=== PATIENT | female | born 1945 | race Caucasian/White ===

== ENCOUNTER 2017-07-24 09:08 | Inpatient (IN) | payer MEDICARE, BC ==
[~2017-07-24] VITALS: Ht 170.2 cm; Wt 110.9 kg
[2017-07-24] VITALS (24 sets, daily range): BP systolic 58–103; BP diastolic 26–63; PULSE 75–96; RESP 11–22; TEMP 98.2
[~2017-07-24 09:08] MED LIST: CIPR500T4 PO; ETOMIDATE 20 MG INJ ONE; LOPE1LIQ33 PO; LORA1TAB PO; METR500T PO; SUCCINYLCHOLINE CHLORIDE 100 MG/5 ML SYG IV ONE
[2017-07-24] MEDS ORDERED: morphine 4 MG/ML VIAL IV STA (09:24)
[2017-07-24] MEDS ORDERED: ONDANSETRON 4 MG INJ IV STA (09:24)
[2017-07-24] MEDS ORDERED: KETOROLAC 30 MG INJ IV STA (09:24)
[2017-07-24] MEDS ORDERED: SOD CHLORIDE 0.9% 1,000 ML IV STA ×3 (09:24→12:25)
[2017-07-24] MEDS ORDERED: FENTAnyl 50 MCG/ML VIAL IV ONE (10:00)
--- NOTE | 2017-07-24 10:02 | ERD ---
ER Documentation Chief Complaint Date/Time DATE: 07/24/17 TIME: 09:58 Chief Complaint CAME IN VIA EMS DUE TO BACK PAIN FOR 4 DAYS HPI This is a 71-year-old male who is brought into the emergency department by EMS complaining of severe worsening back pain over the past 4 days. The patient indicated that the pain initially was intermittent but has now been persistent over the past several hours. She has been unable to get out of bed this morning which is why she phoned 911 to take her to the hospital for further evaluation. She states the pain is more prominent in the left lower back and flank region. It is 10 out of 10 in intensity. The pain does not radiate down the lateral aspect of her left leg and she denies any changes in her bladder or bowel frequency. She has had no fevers or shaking or chills. She has had a decrease in oral intake secondary to pain. She also indicates she has had decreased urinary output with urgency and dysuria. She did take a [place] prior to arrival with no improvement of her symptoms. She does states she has had back pain in the past but never this intensity. The pain is exacerbated with movement. She denies any shortness of breath at rest or exertion. She has no chest pain or pressure that radiates to the neck or back or jaw. She does indicate that she drinks alcohol on a daily basis but denies any hemoptysis hematemesis or melanotic stools. Her primary care physician is Dr. Hawley. ROS All systems reviewed and are negative except as per history of present illness. Medications Home Meds Discontinued Reported Medications Lorazepam* (Lorazepam*) 1 Mg Tablet, 1 MG PO TID Y for ANXIETY, #30 TAB 09/28/16 Discontinued Scripts Ciprofloxacin Hcl* (Ciprofloxacin Hcl*) 500 Mg Tablet, 500 MG PO BID, #14 TAB Prov:EMILY STEPHEN DO 09/28/16 Loperamide Hcl* (Loperamide Hcl*) 1 Mg/5 Ml Liquid, 1 MG PO TID Y for DIARRHEA, #30 ML MAX 16 mg/day Prov:EMILY STEPHEN DO 09/28/16 Metronidazole* (Flagyl*) 500 Mg Tablet, 500 MG PO TID for 7 Days, TAB Prov:EMILY STEPHEN DO 09/28/16 Allergies Allergies: Coded Allergies: Sulfa (Sulfonamide Antibiotics) (Verified Allergy, Severe, 07/24/17) PMhx/Soc History of Surgery: Yes (C SECTION) Anesthesia Reaction: No Hx Neurological Disorder: Yes (SEIZURE) Hx Respiratory Disorders: No Hx Cardiac Disorders: No Hx Psychiatric Problems: Yes (DEPRESSION) Hx Miscellaneous Medical Probl: Yes (bilat knees, neuropathy, dm) Hx Alcohol Use: Yes (6-7 glasses wine/ day) Hx Substance Use: No Hx Tobacco Use: No Smoking Status: Never smoker Physical Exam Vitals Vital Signs Date Time Temp Pulse Resp B/P Pulse Ox O2 Delivery O2 Flow Rate FiO2 07/24/17 12:11 98.5 92 18 96/43 100 Nasal Cannula 2.0 07/24/17 11:05 98.9 90 17 91/65 97 Nasal Cannula 2.0 07/24/17 10:35 88/47 07/24/17 10:10 79/32 07/24/17 09:55 92/52 07/24/17 09:50 86/48 07/24/17 09:45 76/48 07/24/17 09:41 82/48 07/24/17 09:37 64/46 07/24/17 09:35 59/43 07/24/17 09:30 69/52 07/24/17 09:28 92/58 07/24/17 09:17 98.5 84 18 134/92 98 Physical Exam Constitutional:Well-developed. Well-nourished. Patient lying supine not in acute respiratory distress HEENT:Normocephalic. Atraumatic.Pupils were equal round reactive to light. Dry mucous membranes.No tonsillar exudates. Neck: No nuchal rigidity. No lymphadenopathy. No posterior cervical spine tenderness or step-offs. Respiratory: Not using accessory muscles of respiration.Lungs were clear to auscultation bilaterally. No rhonchi. No rales. No wheezing. Cardiovascular: Regular rate regular rhythm.No murmurs. No rubs were appreciated.S1, S2 normal. Distal pulses are palpable 2+ bilaterally. GI: Abdomen was obese so exam is limited due to body habitus. Nontender. Non Distended. No pulsatile abdominal masses or bruits. No rebound. No guarding. Bowel sounds were present and normal. CVA tenderness. Muscle skeletal: Full range of motion of both the upper and lower extremities bilaterally.Normal muscle tone.No assymetrical calf tenderness or swelling. Right leg test positive on the left and negative on the right. Reproducible tenderness over the left paralumbar region L4-L5 with no tenderness with palpation or percussion of the thoracic or lumbar spinous processes. Skin: No petechia, no purpura. No lesions on the palms or the soles of the feet. No maculopapular rash. Genital region had red beefy erythematous rash that extended onto the labia majora with no satellite lesions bulla fluctuance or induration NEURO: Patient was alert, awake, orientated x3.No facial droop. Gait observed and normal with no ataxia.Speech had regular rate and rhythm. No focal neurological deficits. Result Diagram: 07/24/17 1015 07/24/17 1015 Results 24 hrs Laboratory Tests Test 07/24/17 10:15 07/24/17 10:25 White Blood Count 7.010^3/ul Red Blood Count 3.8210^6/ul Hemoglobin 13.2g/dl Hematocrit 38.0% Mean Corpuscular Volume 99.5fl Mean Corpuscular Hemoglobin 34.6pg Mean Corpuscular Hemoglobin Concent 34.7g/dl Red Cell Distribution Width 15.1% Platelet Count 3410^3/UL Mean Platelet Volume 13.5fl Neutrophils % % Segmented Neutrophils % (Manual) 72% Band Neutrophils % (Manual) 12% Lymphocytes % % Lymphocytes % (Manual) 8% Monocytes % % Monocytes % (Manual) 5% Eosinophils % % Eosinophils % (Manual) 3% Basophils % % Metamyelocytes % (manual) 1% Nucleated Red Blood Cells % 1% Neutrophils # 10^3/ul Neutrophils # (Manual) 5.110^3/ul Band Neutrophils # 0.810^3/ul Absolute Lymphocytes (Manual) 0.510^3/ul Lymphocytes # 10^3/ul Monocytes # 10^3/ul Absolute Monocytes (Manual) 0.310^3/ul Eosinophils # 10^3/ul Basophils # 10^3/ul Metamyelocytes # 0.010^3/ul Nucleated Red Blood Cells # 10^3/ul Platelet Estimate DECREASED Hypochromasia 1+ Poikilocytosis 1+ Anisocytosis 1+ Macrocytosis 1+ Prothrombin Time 18.2Sec Prothrombin Time Ratio 1.4 INR International Normalized Ratio 1.50 Activated Partial Thromboplast Time 32.8Sec Sodium Level 128mmol/L Potassium Level 4.5mmol/L Chloride Level 98mmol/L Carbon Dioxide Level 17mmol/L Anion Gap 18 Blood Urea Nitrogen 84mg/dl Creatinine 3.06mg/dl Glucose Level 72mg/dl Calcium Level 8.1mg/dl Total Bilirubin 1.1mg/dl Direct Bilirubin 0.70mg/dl Indirect Bilirubin 0.4mg/dl Aspartate Amino Transf (AST/SGOT) 59IU/L Alanine Aminotransferase (ALT/SGPT) 33IU/L Alkaline Phosphatase 337IU/L Total Protein 5.4g/dl Albumin 2.5g/dl Globulin 2.90g/dl Albumin/Globulin Ratio 0.86 Urine Color PABLO Urine Clarity TURBID Urine pH 5.0 Urine Specific [place] 1.013 Urine Ketones NEGATIVEmg/dL Urine Nitrite NEGATIVEmg/dL Urine Bilirubin NEGATIVEmg/dL Urine Urobilinogen 2+mg/dL Urine Leukocyte Esterase 2+Ivette/ul Urine Microscopic RBC 6/HPF Urine Microscopic WBC > 182/HPF Urine Squamous Epithelial Cells FEW/HPF Urine Bacteria MODERATE/HPF Urine Hemoglobin 3+mg/dL Urine Glucose NEGATIVEmg/dL Urine Total Protein 2+mg/dl Current Medications Medications (Trade) Dose Ordered Sig/Kip Route PRN Reason Start Time Stop Time Status Last Admin Dose Admin Sodium Chloride (NS) 1,000 ml @ 1,000 mls/hr Q1H STAT IV 07/24/17 09:24 07/24/17 10:23 DC 07/24/17 09:24 Morphine Sulfate (morphine) 4 mg ONCE STAT IV 07/24/17 09:24 07/24/17 09:25 Cancel Ondansetron HCl (Zofran Inj) 4 mg ONCE STAT IV 07/24/17 09:24 07/24/17 09:25 DC 07/24/17 09:53 Ketorolac Tromethamine 30 mg 30 mg ONCE STAT IV 07/24/17 09:24 07/24/17 09:25 DC 07/24/17 09:53 Sodium Chloride (NS) 1,000 ml @ 1,000 mls/hr Q1H STAT IV 07/24/17 09:45 07/24/17 10:44 DC 07/24/17 09:52 Fentanyl 50 mcg 50 mcg ONCE ONCE IV 07/24/17 10:00 07/24/17 10:01 DC 07/24/17 09:54 Ceftriaxone Sodium 50 ml @ 100 mls/hr ONCE ONCE IVPB 07/24/17 11:30 07/24/17 11:59 DC 07/24/17 12:02 Magnesium Sulfate/ Multivitamins/ Thiamine HCl/ Folic Acid/Sodium Chloride (Magnesium Sulfate/Mvi Adult/ Vitamin B1/Folic Acid/NS) 1,015.2 ml @ 500 mls/ hr Q2H2M STAT IV 07/24/17 11:51 07/24/17 13:52 Ondansetron HCl (Zofran Inj) 4 mg ER BRIDGE PRN IV NAUSEA AND/OR VOMITING 07/24/17 12:00 07/25/17 11:59 Procedures/MDM The patient presented to the emergency department with back pain. My differential diagnosis included but was not limited to spinal origins of the pain such as fracture, osteomyelitis, epidural abscess, neoplasm, spondylolishtesis, discogenic, cauda equina syndrome or musculoligamentous. Nonspinal causes such as AAA, upper UTI, renal colic, aortic dissection, abdominal neoplasm were also considered as an etiology into their pain. IV access was established by nursing staff and for analgesia control the patient received fentanyl and Zofran as an antiemetic. Fentanyl was given as the patient was hypotensive when she arrived into the emergency department. She had signs of clinical dehydration was given IV fluid hydration with improvement of the patient's blood pressure. The patient also had a significant elevation of her BUN and creatinine likely was a result of prerenal azotemia secondary to severe dehydration. The patient continued to receive IV fluid hydration. Given that the patient consumes alcohol on a daily basis she was supplemented with a banana bag including folic acid thiamine and multivitamin. The patient was unable to ambulate and therefore required a straight cath for urine collection. The patient has significant urinary tract infection blood cultures and urine cultures were obtained and after the patient was given IV ceftriaxone. I obtained a CT scan of the patient's abdomen without contrast which indicated the followin. No mass, lymphadenopathy, or focal acute inflammatory process is identified. 2. Age indeterminate moderate compression fracture of L1 with minimal retropulsion. Mild paraspinal soft tissue thickening is noted suggesting acute to subacute nature of the fracture. Consider MRI L-spine for accurate determination of the age of the fracture. No additional compression fracture is noted. Multilevel discogenic disease is noted throughout the lumbar spine. 3. Sigmoid diverticulosis without evidence of acute diverticulitis. 4. Cholelithiasis without evidence of acute cholecystitis. 5. Indeterminate small liver lesion in segment 6 of the liver likely benign given the stability since 08/31/2014. 6. Scattered aortoiliac atherosclerosis. Patient will be admitted to the telemetry service in serious condition under the care of her primary care physician Dr. Hawley. I have also obtained a urine drug screen as requested by Dr. Hawley which is currently pending Departure Diagnosis: Primary Impression: UTI (urinary tract infection) Urinary tract infection type: acute cystitis Hematuria presence: without hematuria Qualified Code: N30.00 - Acute cystitis without hematuria Additional Impressions: Prerenal acute renal failure Back pain Back pain location: low back pain Chronicity: acute Back pain laterality: left Sciatica presence: without sciatica Qualified Code: M54.5 - Acute left- sided low back pain without sciatica Condition: OSCAR Walter Jul 24, 2017 10:02
[2017-07-24 10:19] LABS: ABNORMAL IP MESSAGE 1; HEMOGLOBIN 13.2 g/dl (12.0-16.0); MEAN CORPUSCULAR HEMOGLOBIN 34.6 pg (29.0-33.0); MEAN CORPUSCULAR HGB CONC 34.7 g/dl (32.0-37.0); MEAN CORPUSCULAR VOLUME 99.5 fl (82.0-101.0); PLATELET COUNT 34 10^3/UL (140-415); RED BLOOD COUNT 3.82 10^6/ul (4.20-5.40); RED CELL DISTRIBUTION WIDTH 15.1 % (11.5-14.5)
[2017-07-24 10:32] LABS: MEAN PLATELET VOLUME 13.5 fl (7.4-10.4); POSITIVE DIFF @See below
[2017-07-24 10:38] LABS: INR 1.5; PROTIME 18.2 Sec (12.2-14.2); PT RATIO 1.4
[2017-07-24 10:39] LABS: PARTIAL THROMBOPLASTIN TIME 32.8 Sec (25.0-35.0)
[2017-07-24 10:50] LABS: ALBUMIN 2.5 g/dl (3.3-4.9); ALBUMIN/GLOBULIN RATIO 0.86; BILIRUBIN,DIRECT 0.7 mg/dl (0.00-0.20); BILIRUBIN,INDIRECT 0.4 mg/dl (0-1.1); BILIRUBIN,TOTAL 1.1 mg/dl (0.2-1.3); CALCIUM 8.1 mg/dl (8.4-10.2); CREATININE 3.06 mg/dl (0.44-1.00); POTASSIUM 4.5 mmol/L (3.5-5.1); TOTAL PROTEIN 5.4 g/dl (6.1-8.1)
[2017-07-24 10:55] LABS: ADD UMIC YES; UR ASCORBIC ACID NEGATIVE (NEGATIVE); UR BACTERIA MODERATE /HPF (NONE SEEN); UR BILIRUBIN (Dip) NEGATIVE (NEGATIVE); UR BLOOD (Dip) 3+ mg/dL (NEGATIVE); UR CLARITY TURBID (CLEAR); UR COLOR AMBER (YELLOW); UR GLUCOSE (Dip) NEGATIVE (NEGATIVE); UR KETONES (Dip) NEGATIVE (NEGATIVE); UR LEUKOCYTE ESTERASE (Dip) 2+ Leu/ul (NEGATIVE); UR NITRITE (Dip) NEGATIVE (NEGATIVE); UR RBC 6 /HPF (0-5); UR SPECIFIC GRAVITY (Dip) 1.013 (1.003-1.030); UR SQUAMOUS EPITHELIAL CELL FEW /HPF (FEW); UR TOTAL PROTEIN (Dip) 2+ mg/dl (NEGATIVE); UR UROBILINOGEN (Dip) 2+ mg/dL (NEGATIVE)
[2017-07-24 11:10] LABS: ANISOCYTOSIS 1+ (0-0); BURR CELLS 2+ (0-0); EOSINOPHILS % (M) 3 % (0-7); ERYTHROBLAST% (NRBC) (M) 1 % (0-0); HYPOCHROMASIA 1+ (0-0); METAMYELOCYTES %M 1 % (0-0); MONOCYTES % (M) 5 % (0-11); PLATELET ESTIMATE DECREASED; POIKILOCYTOSIS 1+ (0-0)
--- NOTE | 2017-07-24 11:15 | RADRPT ---
PROCEDURE: CT Abdomen and Pelvis without contrast. CLINICAL INDICATION: Back pain TECHNIQUE: CT scan of the abdomen and pelvis without contrast was performed on a multidetector hig h-resolution CT scanner. The patient was scanned without intravenous contrast. Coronal and sagittal reformatted images were obtained from the axial source images. Images were reviewed on a high-resol [employer] PACS workstation. The total exam CTDI equals 23.52 mGy and the total exam DLP equals 1480.62 m Gy-cm. One or more of the following dose reduction techniques were used: Automated exposure control. Adjustment of the mA and/or kV according to patient size. Use of iterative reconstruction technique. COMPARISON: CT abdomen and pelvis 09/28/[address] abdomen and pelvis 08/31/2014 FINDINGS: CT abdomen: The lung bases are clear. The heart size is normal, without pericardial thickening or effusion. Th e liver is normal in size and density without focal mass or intrahepatic biliary dilatation. There i s approximately 1.7 cm hypodensity in the inferior right hepatic lobe (segment 6). The spleen is nor mal in size and homogeneous in density. The stomach is partially collapsed, but is grossly unremark able. The pancreas as visualized is normal. The gallbladder is remarkable for numerous sub centime ter calcified gallstones. There is no evidence for biliary dilatation. The adrenal glands are symme tric and normal. The kidneys are symmetrically unremarkable as well. No renal calculus or obstruct fanny uropathy or mass lesion is seen. The aorta is of normal caliber. Aortic vascular calcifications are present. There is no retroperit barragan lymphadenopathy. The tanmay hepatis region is clear. The bowel and mesentery, as visualized, are equally unremarkable. CT pelvis: The small bowel loops situated within the pelvis are unremarkable. There is heterogeneous appearance of the cervix . The pelvic sidewalls and inguinal regions are clear. The sigmoid colon and rectum are remarkable for sigmoid diverticulosis. No mass, lymphadenopathy, or free fluid is seen. No acu te inflammation is seen. The surrounding osseous structures are remarkable for degenerative spondyl osis of the spine. No osteolytic or osteoblastic lesion is detected. There is age indeterminate com pression fracture of L1 with approximately 70% height loss centrally. There is mild paraspinal soft tissue thickening at the level of the T1. The remainder of the lumbar vertebral body heights are pre served. IMPRESSION: 1. No mass, lymphadenopathy, or focal acute inflammatory process is identified. 2. Age indeterminate moderate compression fracture of L1 with minimal retropulsion. Mild paraspinal soft tissue thickening is noted suggesting acute to subacute nature of the fracture. Consider MRI L -spine for accurate determination of the age of the fracture. No additional compression fracture is noted. Multilevel discogenic disease is noted throughout the lumbar spine. 3. Sigmoid diverticulosis without evidence of acute diverticulitis. 4. Cholelithiasis without evidence of acute cholecystitis. 5. Indeterminate small liver lesion in segment 6 of the liver likely benign given the stability sin ce 08/31/2014. 6. Scattered aortoiliac atherosclerosis. RPTAT: BB .Joanna Cantu MD, MD Date Time Electronically viewed and signed by .Joanna Cantu MD, on 07/24/2017 11:15 .O/
[2017-07-24] MEDS ORDERED: CEFTRIAXONE 1 GM/50 ML (PMX) 50 ML IVPB ONE (11:30)
[2017-07-24] MEDS ORDERED: MAGNESIUM SULFATE 2 GM, MULTIVITAMINS 10 ML, THIAMINE 100 MG, FOLIC ACID 1 MG in SOD CH... IV STA (11:51)
[2017-07-24] MEDS ORDERED: ONDANSETRON 4 MG INJ IV PRN ×2 (12:00→19:00)
[2017-07-24 12:39] LABS: BARBITURATES Negative (NEGATIVE); BENZODIAZEPINES Negative (NEGATIVE); CANNABINOIDS Negative (NEGATIVE); COCAINE Negative (NEGATIVE); OPIATES Positive (NEGATIVE)
[2017-07-24] MEDS ORDERED: DEXTROSE 5%-0.45% NACL 1,000 ML IV SCH (17:00)
[2017-07-24] MEDS ORDERED: SOD CHLORIDE 0.9% 1,000 ML IV SCH (17:00)
--- NOTE | 2017-07-24 17:29 | PN ---
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 onset mid to low back pain after trying to get out of bed on saturday, relatively immobile since. evidently not drinking too much fluids as bothers her head. new onset headache, forhead also in last two days. denies fever or chills, but is shakey. normal creatinine(0.4) in march 2017, plt ct 152k. presents to er with pain back and abd and headache. labs with acute renal insufficiency and grossly positive ua. plt count is low, left shift with immature forms on cbc ct abd and pelvis w fx L1? age, no prior hx fx, no trauma. also nl spleen, no ascites on exam awake but a little rambly. can touch chin to chest without pain. lujngs clear abd obese, intertrigo rash and vaginal discharge, some rt sided discomfort on palpation, no guarding or rebound ext without edema can not turn her to examine back, no sign of zoster anteriorly ext no edema. can lift legs without much discomfort, ok rom hips initial Imp 1. acute renal insufficiency 2. back pain, unclear cause, no stone or obst on ct, low urine output, will place holman and treat for yeast and infection.3. headache. 4. low platelet, left shift??sepsis, lactate ordered, fluids started, rocephin given, cultures done plan will order ct, cont iv and clears po, repeat labs in am have asked for renal consult Constitutional: poor po, requiring IVF Gastrointestinal: pain Musculoskeletal: back pain Exam/Review of Systems Vital Signs Vitals Vital Signs Date Time Temp Pulse Resp B/P Pulse Ox O2 Delivery O2 Flow Rate FiO2 07/24/17 16:16 89 07/24/17 15:58 Nasal Cannula 2.0 07/24/17 15:53 98.7 19 96/63 91 Results Result Diagram: 07/24/17 1015 07/24/17 1015 Results 24 hrs Laboratory Tests Test 07/24/17 10:15 07/24/17 10:25 07/24/17 11:57 White Blood Count 7.0 Red Blood Count 3.82 L Hemoglobin 13.2 Hematocrit 38.0 Mean Corpuscular Volume 99.5 Mean Corpuscular Hemoglobin 34.6 H Mean Corpuscular Hemoglobin Concent 34.7 Red Cell Distribution Width 15.1 H Platelet Count 34 L Mean Platelet Volume 13.5 #H Neutrophils % Segmented Neutrophils % (Manual) 72 Band Neutrophils % (Manual) 12 H Lymphocytes % Lymphocytes % (Manual) 8 L Monocytes % Monocytes % (Manual) 5 Eosinophils % Eosinophils % (Manual) 3 Basophils % Metamyelocytes % (manual) 1 H Nucleated Red Blood Cells % 1 H Neutrophils # Neutrophils # (Manual) 5.1 Band Neutrophils # 0.8 H Absolute Lymphocytes (Manual) 0.5 L Lymphocytes # Monocytes # Absolute Monocytes (Manual) 0.3 Eosinophils # Basophils # Metamyelocytes # 0.0 Nucleated Red Blood Cells # Platelet Estimate DECREASED Hypochromasia 1+ Poikilocytosis 1+ Anisocytosis 1+ Macrocytosis 1+ Prothrombin Time 18.2 H Prothrombin Time Ratio 1.4 INR International Normalized Ratio 1.50 Activated Partial Thromboplast Time 32.8 Sodium Level 128 L Potassium Level 4.5 Chloride Level 98 Carbon Dioxide Level 17 L Anion Gap 18 H Blood Urea Nitrogen 84 H Creatinine 3.06 H Glucose Level 72 Calcium Level 8.1 L Total Bilirubin 1.1 Direct Bilirubin 0.70 H Indirect Bilirubin 0.4 Aspartate Amino Transf (AST/SGOT) 59 H Alanine Aminotransferase (ALT/SGPT) 33 Alkaline Phosphatase 337 H Total Protein 5.4 L Albumin 2.5 L Globulin 2.90 Albumin/Globulin Ratio 0.86 Urine Color PABLO Urine Clarity TURBID A Urine pH 5.0 Urine Specific [place] 1.013 Urine Ketones NEGATIVE Urine Nitrite NEGATIVE Urine Bilirubin NEGATIVE Urine Urobilinogen 2+ H Urine Leukocyte Esterase 2+ H Urine Microscopic RBC 6 H Urine Microscopic WBC > 182 H Urine Squamous Epithelial Cells FEW Urine Bacteria MODERATE Urine Hemoglobin 3+ H Urine Glucose NEGATIVE Urine Total Protein 2+ H Urine Opiates Screen Positive Urine Barbiturates Negative Urine Amphetamines Screen Negative Urine Benzodiazepines Screen Negative Urine Cocaine Screen Negative Urine Cannabinoids Negative Ethyl Alcohol Level < 10.0 Medications Medications Current Medications Ceftriaxone Sodium 50 ml @ 100 mls/hr Q24H IVPB ; Start 07/24/17 at 17:30; Status UNV Sodium Chloride 1,000 ml @ 200 mls/hr Q5H IV ; Start 07/24/17 at 17:00; Status UNV Dextrose/Sodium Chloride (D5-1/2ns) 1,000 ml @ 125 mls/hr Q8H IV ; Start at 17:00; Status UNV PIPER SANTANA MD Jul 24, 2017 17:26
[2017-07-24] MEDS ORDERED: CEFTRIAXONE 1 GM/50 ML (PMX) 50 ML IVPB SCH (17:30)
[2017-07-24] MEDS: FLUCONAZOLE 200 MG TAB PO SCH (18:20)
[2017-07-24] MEDS: morphine 2 MG INJ IV PRN ×2 (18:30→20:46)
--- NOTE | 2017-07-24 19:18 | HP ---
DATE OF ADMISSION: 07/24/2017 CHIEF COMPLAINT: Back pain. HISTORY OF PRESENT ILLNESS: This is a 71-year-old woman with obesity, prior history of back pain, prior history of alcohol abuse. She was in her usual state of health until Saturday when trying to get out of bed. She developed acute back pain described as her low to mid back pain. She denies any radiation into her legs, although her history is somewhat difficult as she is a little bit confused today. The episode happened on Saturday 2 days ago. She came to the emergency room today with her . She was found to have acute renal failure with a creatinine of 3. Her last creatinine in My Chart is 0.4 on 04/10. She likewise had a normal white count with a left shift and a low platelet count of 34,000 with a prior platelet count of 152,000. Tox screen is negative, except for opiates. She did take a [place] before leaving the house this morning. Serum sodium is 128. Creatinine is 3.06, BUN of 84. Liver function tests: AST minimally elevated at 59, alkaline phosphatase 337. Sugar is 72. Urine is grossly infected and attempted catheterization. She has exudative vaginitis which may, in fact, be yeast. Her straight cath in the emergency room reported only 20 mL of fluid. The patient is also complaining of a frontal headache, which she states came on about the same time as the back pain. When asking whether she has been drinking fluids, she says she has trouble drinking fluids because it makes her head hurt, although this is somewhat unclear. There has been no nausea or vomiting. She has had no diarrhea. She has had no fever or chills. Although she feels somewhat shaky. The patient is admitted to the hospital. She has been blood cultures, urine cultures have been done. Rocephin has been given. Renal consult has been requested. Lactate level has been added. ALLERGIES: SULFA. SOCIAL HISTORY: The patient is . She has 2 grown children. She has had 2 stents in alcohol rehab. Her drinking has been somewhat reduced in the last several months to 1-2 glasses of wine daily. PAST MEDICAL HISTORY: She has an old history of seizure and none in the last several years. She has some history of neuropathy. She has seen Dr. Pisano earlier this month. Workup was in progress. Medical problems otherwise include anxiety, chronic dermatitis, varicose veins, and neuropathy. PAST SURGICAL HISTORY: Tonsillectomy, leg stripping, and C- section. The patient had a blowout orbital fracture several years ago which resolved spontaneously. REVIEW OF SYSTEMS: Headaches as noted. No complaint of visual difficulty. No shortness of breath, cough, or exertional chest pain. GASTROINTESTINAL: She has some nonspecific discomfort. EXTREMITIES: Chronic intertriginous rash. She has some lower extremity pain secondary to neuropathy. She has had falls in the past but none recent. IMMUNIZATIONS: The patient has not had a flu shot in the past year that I am aware of. Other immunizations Pneumovax in 2014. PHYSICAL EXAMINATION: GENERAL: Reveals an overweight lady lying in bed. She is alert but has difficulty formulating questions or answering questions without some time being spent formulating the answer. VITALS: Blood pressure has been low at 96/63. She is afebrile. Pulse rate is 90 and regular. She has relatively normal pulse oximetry on oxygen. HEENT: Pupils are round and reactive. Extraocular muscles are intact. She has normal confrontation. She has no diplopia. She can touch her head toward her chest. Her mouth is without evidence of thrush. CHEST: Sounds clear. HEART: Tones regular. ABDOMEN: Soft and obese. There is intertriginous rash and nonspecific erythematous rash over the lower abdomen. I do not see signs of zoster, although the patient is difficult to turn. She is sensitive to touch in multiple places and there is some sensitivity in her lower abdomen. I do not feel palpable masses. No guarding or rigidity. EXTREMITIES: Big. She has peripheral pulses. I can elevate both legs 30 degrees without any pain. She has normal range of motion of her hip and knee without pain. Her feet are sensitive to touch, and she has loss of sensation objectively. Cranial nerves are otherwise intact. IMPRESSION: 1. Acute renal failure, probably due to poor intake, possible urinary tract infection or yeast infection. Treatment is underway. 2. Hypotension and left shift, possible sepsis. Lactate levels have been ordered. She is on antibiotics and fluids. 3. Headache, etiology unclear. CT scan has been ordered to rule out bleed. She can touch her chin to her chest and I can elevate her neck without significant pain. The patient is nonfocal. No recent trauma per her . 4. Severe back pain, etiology unclear. There is a L1 fracture, which may be old. The patient will be treated with some analgesics until she is able to undergo further testing. 5. Low platelet count. Normal spleen on x-ray. She does have a history of alcoholism, but her platelet counts have been normal in the past. DISCUSSION: After the CT does not indicate evidence of bleeding, she would be a candidate for low molecular weight heparin treatment. Nephrology consult has been requested. As noted, the patient is covered for infection. Culture results are pending. She can take oral fluids as well as IV. Dictated By: Genaro Hawley MD /[email or web address]/karo /Document#: [id number]
[2017-07-24] MEDS: NORepinephrine 8MG/250 ML (PMX 250 ML IV SCH (20:15)
[2017-07-24] MEDS: DEXTROSE 5%-0.9% NACL 1,000 ML IV SCH (20:16)
[2017-07-24 20:29] LABS: ETHANOL < 10.0 mg/dl
[2017-07-24 20:31] LABS: AADO2 Arterial 468.2 mmHg (7.0-24.0); Allen Test ACCEPTAB; Arterial COHb 0.1 % (0.0-3.0); Arterial Fraction of Oxyhgb 98.6 % (93.0-99.0); Arterial HCO3 17.9 mmol/L (22.0-26.0); Arterial MetHb 0.4 % (0.0-1.5); Arterial Total Hemglobin 12.4 g/dl (12.0-18.0); MODE MASK - NRB
[2017-07-24] MEDS ORDERED: NORepinephrine 8MG/250 ML (PMX 250 ML ONE (20:31)
[2017-07-24 20:41] LABS: TROPONIN-I 0.014 ng/ml (0.00-0.12)
[2017-07-24] MEDS ORDERED: NALOXONE (0.4 MG/ML) INJ IV ONE ×2 (21:00)
--- NOTE | 2017-07-24 21:18 | CONS ---
DATE OF ADMISSION: 07/24/2017 DATE OF CONSULTATION: 07/24/2017 REASON FOR CONSULTATION: Acute renal failure. Thank you, Dr. Hawley for asking me to participate in medical management of this patient. HISTORY OF PRESENT ILLNESS: This 71-year-old female was admitted through the emergency room today after she was brought in by the paramedics complaining of low back pain over the past 4 days. The patient in the emergency room was found to have an elevated serum creatinine of 3.06, with a BUN of 84. This reflected a change in her renal function from previous. The patient was in this hospital in September 2016 and at that time, she had a serum creatinine of 0.56. The patient is in a great deal of pain. She is moaning out and is unable to give an accurate history. I did ask her about prior kidney disease, and she denies it. However, she is incoherent and unable to give an accurate history. The history is taken from what is written in the chart and after speaking to Dr. Hawley, her primary care physician. The patient was also found to have urinary tract infection in the emergency room. The nurse at the bedside said that she seems to have a vaginal yeast infection. The patient does have a history of alcohol abuse. Although she did tell the ER doctor that she has not had any alcohol in at least 24 hours She apparently was in this hospital in January 2012 and had an alcohol withdrawal seizure. OTHER PAST MEDICAL HISTORY: Has included episode of diarrhea in September 2016, elevated liver enzymes, Varicose veins, with a lower extremity ulcer, having [facility], Depression, Bilateral knee pain, Neuropathy HOME MEDICATIONS: Have included lorazepam 1 mg t.i.d. for anxiety. ALLERGIES: SHE IS ALLERGIC TO SULFA. PAST SURGICAL HISTORY: C section. PHYSICAL EXAMINATION: GENERAL APPEARANCE: At this time reveals an ill-appearing female, who is moaning and crying out in pain. VITAL SIGNS: Temperature 98.7, pulse of 89, respirations 19, blood pressure 96/63, O2 sat 91 percent on 2 L nasal cannula. HEENT: Head normocephalic. Eyes: Extraocular muscles intact. Nose and mouth: Nose is normal. Mouth is very dry. NECK: She does have some petechiae on the right side of her neck. HEART: Regular rhythm. No murmurs, gallops, or rubs. ABDOMEN: Obese, soft, nontender. No masses or megaly. GROIN AREA: There is some rash in the area between the thighs. Apparently, she had some yeast-like material in her vagina. She does have a [place] catheter in place. EXTREMITIES: No edema, but there are some stasis changes. LABORATORY TESTS: Done in the emergency room: White blood count of 7000, hemoglobin 13.2, hematocrit 38, platelet count is low, at 34,000. Her neutrophils 72 with 12 percent bands, 1 metamyelocyte, 1 nucleated red cell. Chemistry: Sodium 128, potassium 4.5, chloride 98, CO2 of 17, BUN 84, creatinine 3.06, calcium 8.1. Albumin is low, at 2.5. Alk phos is elevated at 337. Urinalysis shows 2+ leukocyte esterase, greater than 180 white cells, moderate bacteria, 2+ protein. Lactate level of 1.3. A CT scan of the abdomen shows an L1 moderate compression fracture suspicious for being acute cholelithiasis, without evidence of acute cholecystitis. IMPRESSION: 1. Acute renal failure. This patient presents now with evidence of acute renal failure. Her BUN and creatinine are elevated and were previously normally noted in September 2016. She has been in a great deal of pain. She looks dehydrated. Her blood pressure is relatively low. She has a urinary tract infection, with a white blood cell count shifted to the left. 2. History of alcohol abuse, with previously elevated liver enzymes and now an elevated alkaline phosphatase. 3. Thrombocytopenia. 4. Hyponatremia. 5. Hypoalbuminemia. 6. Urinary tract infection. PLAN: 1. Agree with aggressive IV fluids, as she seems volume depleted. 2. Broad-spectrum antibiotics have been started appropriately. 3. Check urine for electrolytes and creatinine. 4. follow up labs in am . I will follow the patient along with you. Dictated By: Matt Varela MD /[email or web address]/[email or web address] /Document#: [id number] [facility]
--- NOTE | 2017-07-24 22:00 | RADRPT ---
PROCEDURE: XR Chest. CLINICAL INDICATION: Respiratory and cardiac issues. The patient is status post cardiopulmonary resu scitation. TECHNIQUE: Single frontal view of the chest. COMPARISON: 09/28/2016. FINDINGS: Cardiomegaly. Tortuous thoracic aorta. New pulmonary mass congestion and patchy air space disease. N ew transcutaneous cardiac pacing pad over the left upper chest. New small left pleural effusion. Th e osseous structures and soft tissues are unremarkable. IMPRESSION: 1. Mild failure patchy air space disease and new left pleural effusion. 2. Cardiomegaly. RPTAT: [facility] Physician Walter Date Time Electronically viewed and signed by Physician Walter on 07/24/2017 22:00 RS/
--- NOTE | 2017-07-24 22:55 | QN ---
Documentation Comment Central Line Placement by me: Patient consented, sterilely draped, full prep, gown, glove, mask, time out performed. Anesthesia: 1% lidocaine locally Location: Right femoral Device: Multiple lumen Technique: Seldinger technique. Secured with suture. Results: Venous return from all ports with easy saline flush. No complications. Guide wire retrieved and disposed of. ED Ultrasound: Central line placed by me using concurrent ultrasound guidance. Real time image archived in the medical record confirms vascular anatomy. DORIS GUTIERREZ MD Jul 24, 2017 22:55
[2017-07-25] VITALS (94 sets, daily range): BP systolic 68–122; BP diastolic 25–66; PULSE 55–111; RESP 17–33; Ht 170.2 cm; Wt 110.9 kg
--- NOTE | 2017-07-25 01:04 | RADRPT ---
PROCEDURE: CT head, without contrast. CLINICAL INDICATION: Altered level of consciousness. TECHNIQUE: Noncontrast CT examination of the head, with axial, sagittal and coronal reformatted im ages. Automated dose exposure control was employed. CTDI: 45.01 and DLP: 810.25. COMPARISON: None. FINDINGS: Chronic changes of atrophy and small vessel disease white matter. No acute hemorrhage. Subarachnoid spaces are substantially preserved and symmetric. Ventricles ar e unremarkable. No mass effect. Garcia-white matter distinction is preserved without evident decreased attenuation t o suggest acute or recent infarct. Sinuses and osseous structures are unremarkable. IMPRESSION: Chronic changes of atrophy and small vessel disease white matter, and otherwise, no acute process in the head. RPTAT: [facility] Physician Walter Date Time Electronically viewed and signed by Physician Walter on 07/25/2017 01:04 RS/
[2017-07-25] MEDS: NORepinephrine 8MG/250 ML (PMX 250 ML IV SCH ×2 (03:45→09:59)
[2017-07-25] MEDS: DEXTROSE 5%-0.9% NACL 1,000 ML IV SCH ×4 (05:00→14:02)
[2017-07-25 05:29] LABS: ABNORMAL IP MESSAGE 1; HEMATOCRIT 34.6 % (37.0-47.0); HEMOGLOBIN 11.9 g/dl (12.0-16.0); MEAN CORPUSCULAR HEMOGLOBIN 33.7 pg (29.0-33.0); MEAN CORPUSCULAR HGB CONC 34.4 g/dl (32.0-37.0); RED BLOOD COUNT 3.53 10^6/ul (4.20-5.40); RED CELL DISTRIBUTION WIDTH 15.4 % (11.5-14.5); WHITE BLOOD COUNT 26.8 10^3/ul (4.8-10.8)
[2017-07-25 05:51] LABS: ALBUMIN/GLOBULIN RATIO 0.72
[2017-07-25 06:19] LABS: ALBUMIN 2.1 g/dl (3.3-4.9); BILIRUBIN,DIRECT 0.1 mg/dl (0.00-0.20); BILIRUBIN,INDIRECT 0.2 mg/dl (0-1.1); BILIRUBIN,TOTAL 0.3 mg/dl (0.2-1.3); CALCIUM 7.3 mg/dl (8.4-10.2); CREATININE 2.78 mg/dl (0.44-1.00); PHOSPHORUS 3.7 mg/dl (2.5-4.9); POTASSIUM 3.9 mmol/L (3.5-5.1)
[2017-07-25 06:27] LABS: POSITIVE DIFF @See below
[2017-07-25 06:29] LABS: PLATELET COUNT 19 10^3/UL (140-415)
[2017-07-25] MEDS: FLUCONAZOLE 200 MG TAB PO SCH (09:00)
[2017-07-25 09:04] LABS: ANISOCYTOSIS 1+ (0-0); BURR CELLS 2+ (0-0); EOSINOPHILS % (M) 1 % (0-7); MONOCYTES % (M) 3 % (0-11); PLATELET ESTIMATE SIG DECREASED; POIKILOCYTOSIS 1+ (0-0); REACTIVE LYMPHOCYTES% (M) 2 % (0-0)
--- NOTE | 2017-07-25 10:11 | CONS ---
Date/Time of Note Date/Time of Note DATE: 07/25/17 TIME: 09:57 Assessment/Plan Assessment/Plan Chief Complaint/Hosp Course 1. Acute Renal Failure , due to combination of ATN and dehydration . Her renal function is improving . Will continue current IV fluids and check labs in am . 2. ALOC , she did have an episode of hypotension last night . CT of head does not show any acute changes . 3. Hypotension , now on pressors 4. UTI on antibiotics . 5. Thrombocytopenia 6. Hyponatremia , correcting Problems: Consultation Date/Type/Reason Admit Date/Time Jul 24, 2017 at 11:53 Initial Consult Date 24 HR Interval Summary Free Text/Dictation This patient is now in the ICU . She had an episode of ALOC last evening with hypotension and she was transferred to the ICU . She is now unresponsive on Levophed . Subjective hx not possible: pt non-verbal Exam/Review of Systems Vital Signs Vitals Vital Signs Date Time Temp Pulse Resp B/P Pulse Ox O2 Delivery O2 Flow Rate FiO2 07/25/17 09:15 111 31 102/50 93 Nasal Cannula 5.0 07/25/17 08:00 98.6 Intake and Output 07/24/17 07/24/17 07/25/17 15:00 23:00 07:00 Intake Total 1645.54 ml 1493.745 ml Output Total 100 ml 300 ml Balance 1545.54 ml 1193.745 ml Exam She has stasis changes of both lower extremeties Constitutional: non-verbal Respiratory: clear to auscultation, diminished breath sounds Cardiovascular: regular rate and rhythm Gastrointestinal: soft Results Result Diagram: 07/25/17 0400 07/25/17 0400 Results 24 hrs Laboratory Tests Test 07/24/17 10:15 07/24/17 10:25 07/24/17 11:57 07/24/17 17:39 White Blood Count 7.0 Red Blood Count 3.82 L Hemoglobin 13.2 Hematocrit 38.0 Mean Corpuscular Volume 99.5 Mean Corpuscular Hemoglobin 34.6 H Mean Corpuscular Hemoglobin Concent 34.7 Red Cell Distribution Width 15.1 H Platelet Count 34 L Mean Platelet Volume 13.5 #H Neutrophils % Segmented Neutrophils % (Manual) 72 Band Neutrophils % (Manual) 12 H Lymphocytes % Lymphocytes % (Manual) 8 L Monocytes % Monocytes % (Manual) 5 Eosinophils % Eosinophils % (Manual) 3 Basophils % Metamyelocytes % (manual) 1 H Nucleated Red Blood Cells % 1 H Neutrophils # Neutrophils # (Manual) 5.1 Band Neutrophils # 0.8 H Absolute Lymphocytes (Manual) 0.5 L Lymphocytes # Monocytes # Absolute Monocytes (Manual) 0.3 Eosinophils # Basophils # Metamyelocytes # 0.0 Nucleated Red Blood Cells # Platelet Estimate DECREASED Hypochromasia 1+ Poikilocytosis 1+ Anisocytosis 1+ Macrocytosis 1+ Prothrombin Time 18.2 H Prothrombin Time Ratio 1.4 INR International Normalized Ratio 1.50 Activated Partial Thromboplast Time 32.8 Sodium Level 128 L Potassium Level 4.5 Chloride Level 98 Carbon Dioxide Level 17 L Anion Gap 18 H Blood Urea Nitrogen 84 H Creatinine 3.06 H Glucose Level 72 Calcium Level 8.1 L Total Bilirubin 1.1 Direct Bilirubin 0.70 H Indirect Bilirubin 0.4 Aspartate Amino Transf (AST/SGOT) 59 H Alanine Aminotransferase (ALT/SGPT) 33 Alkaline Phosphatase 337 H Total Protein 5.4 L Albumin 2.5 L Globulin 2.90 Albumin/Globulin Ratio 0.86 Urine Color PABLO Urine Clarity TURBID A Urine pH 5.0 Urine Specific [place] 1.013 Urine Ketones NEGATIVE Urine Nitrite NEGATIVE Urine Bilirubin NEGATIVE Urine Urobilinogen 2+ H Urine Leukocyte Esterase 2+ H Urine Microscopic RBC 6 H Urine Microscopic WBC > 182 H Urine Squamous Epithelial Cells FEW Urine Bacteria MODERATE Urine Hemoglobin 3+ H Urine Glucose NEGATIVE Urine Total Protein 2+ H Urine Opiates Screen Positive Urine Barbiturates Negative Urine Amphetamines Screen Negative Urine Benzodiazepines Screen Negative Urine Cocaine Screen Negative Urine Cannabinoids Negative Ethyl Alcohol Level < 10.0 Lactic Acid Level 1.3 Thyroid Stimulating Hormone (TSH) 6.530 H Test 07/24/17 19:25 07/24/17 19:37 07/24/17 19:47 07/24/17 19:48 Bedside Glucose 73 Blood Gas Specimen Source Blood arterial Arterial Blood Date Drawn 07/24/2017 8:15:21 PM Arterial Blood pH (Temp corrected) 7.291 *L Arterial Blood pCO2 (Temp correct) 38.0 Arterial Blood pO2 (Temp corrected) 206.8 H Arterial Blood HCO3 17.9 L Arterial Blood Base Excess -8.0 L Arterial Blood Oxygen Saturation 99.1 H Sanjeev Test ACCEPTAB Arterial Blood Gas Puncture Site Left Radial Arterial Blood Carboxyhemoglobin 0.1 Arterial Blood Methemoglobin 0.4 Blood Gas A-a O2 Differential 468.2 H Oxyhemoglobin Percent 98.6 Total Hemoglobin 12.4 Blood Gas Temperature 37.0 Blood Gas Modality MASK - NRB FiO2 100.0 Blood Gas Critical Value Read Back YAHAIRA KHAN Blood Gas Notified Whom [facility] Blood Gas Notified Time 07/24/2017 8:31:52 PM Troponin I 0.014 Ethyl Alcohol Level < 10.0 Lactic Acid Level 1.1 Test 07/25/17 04:00 White Blood Count 26.8 #H Red Blood Count 3.53 L Hemoglobin 11.9 L Hematocrit 34.6 L Mean Corpuscular Volume 98.0 Mean Corpuscular Hemoglobin 33.7 H Mean Corpuscular Hemoglobin Concent 34.4 Red Cell Distribution Width 15.4 H Platelet Count 19 #*L Mean Platelet Volume Neutrophils % Segmented Neutrophils % (Manual) 74 Band Neutrophils % (Manual) 15 H Lymphocytes % Lymphocytes % (Manual) 5 L Reactive Lymphocytes % (Manual) 2 H Monocytes % Monocytes % (Manual) 3 Eosinophils % Eosinophils % (Manual) 1 Basophils % Nucleated Red Blood Cells % 0.0 Neutrophils # Neutrophils # (Manual) 20.9 H Band Neutrophils # 4.0 H Absolute Lymphocytes (Manual) 1.3 Lymphocytes # Reactive Lymphocytes # 0.5 H Monocytes # Absolute Monocytes (Manual) 0.8 Eosinophils # Basophils # Nucleated Red Blood Cells # Platelet Estimate SIG DECREASED Poikilocytosis 1+ Anisocytosis 1+ Sodium Level 133 L Potassium Level 3.9 Chloride Level 104 Carbon Dioxide Level 18 L Anion Gap 15 Blood Urea Nitrogen 78 H Creatinine 2.78 H Glucose Level 151 Calcium Level 7.3 L Phosphorus Level 3.7 Magnesium Level 2.4 Total Bilirubin 0.3 Direct Bilirubin 0.10 # Indirect Bilirubin 0.2 Aspartate Amino Transf (AST/SGOT) 49 H Alanine Aminotransferase (ALT/SGPT) 37 Alkaline Phosphatase 318 H Total Protein 5.0 L Albumin 2.1 L Globulin 2.90 Albumin/Globulin Ratio 0.72 Medications Medications Current Medications Ceftriaxone Sodium (Rocephin) 50 ml @ 100 mls/hr Q24H IVPB ; Start 07/25/17 at 12:00; Stop 07/25/20 at 09:41 Morphine Sulfate (morphine) 2 mg Q4H PRN IV back pain Last administered on 07/24t 20:46; Admin Dose 2 MG; Start 07/24/17 at 17:30 Ondansetron HCl (Zofran Inj) 4 mg Q6H PRN IV NAUSEA AND/OR VOMITING; Start at 19:00 Morphine Sulfate 4 mg 4 mg Q4H PRN IV PAIN LEVEL 7-10; Start 07/24/17 at 19:00 Dextrose/Sodium Chloride 1,000 ml @ 200 mls/hr Q5H IV Last administered on 05:00; Admin Dose 200 MLS/HR; Start 07/24/17 at 19:30 Norepinephrine 250 ml @ 1.875 mls/ hr TITRATE IV Last administered on 03:45; Admin Dose 15.099 MLS/HR; Start 07/24/17 at 21:00 Cefepime HCl 50 ml @ 100 mls/hr Q12 IVPB ; Start 07/25/17 at 10:00; Status UNV Fluconazole (Diflucan 200 Mg/ NS (Pmx)) 100 ml @ 100 mls/hr Q24H IVPB ; Start 07/25/17 at 11:00 GRACE GRANDE MD Jul 25, 2017 10:07
[2017-07-25] MEDS ORDERED: DEXTROSE 50% 50 ML SYRINGE IV PRN ×2 (10:30)
[2017-07-25] MEDS ORDERED: GLUCAGON 1 MG INJ IM PRN (10:30)
[2017-07-25] MEDS ORDERED: GLUCOSE GEL 15 GRAM TUBE PO PRN ×2 (10:30)
[2017-07-25] MEDS ORDERED: GLUCOSE GEL 15 GRAM TUBE BUCCAL PRN (10:30)
[2017-07-25] MEDS: CEFEPIME 1GM/50 ML (PMX) 50 ML IVPB SCH (11:04)
[2017-07-25] MEDS: FLUCONAZOLE 200 MG/NS (PMX) 100 ML IVPB SCH (11:48)
[2017-07-25] MEDS ORDERED: LIDOCAINE 1% (MPF) 5 ML VIAL SC ONE (12:00)
[2017-07-25] MEDS ORDERED: CEFTRIAXONE 1 GM/50 ML (PMX) 50 ML IVPB SCH (12:00)
[2017-07-25 12:35] LABS: AADO2 Arterial 133.9 mmHg (7.0-24.0); Allen Test ACCEPTAB; Arterial Base Excess -6.6 mmol/L (-3.0-3); Arterial COHb 0.6 % (0.0-3.0); Arterial Fraction of Oxyhgb 93.2 % (93.0-99.0); Arterial HCO3 20.1 mmol/L (22.0-26.0); Arterial MetHb 0.4 % (0.0-1.5); Arterial Total Hemglobin 13.5 g/dl (12.0-18.0); MODE NASAL CANNULA
[2017-07-25] MEDS: NYSTATIN 30 GM POWDER BTL TOP SCH ×2 (12:48→21:55)
[2017-07-25] MEDS: INSULIN ASPART [NOVOLOG] 3 ML PEN SC SCH ×3 (12:52→22:04)
[2017-07-25] MEDS: BALSAM PERU/CASTOR OIL 60 GM TUBE TOP SCH ×2 (14:02→21:55)
--- NOTE | 2017-07-25 14:05 | PN ---
Date/Time of Note Date/Time of Note DATE: 07/25/17 TIME: 13:35 Assessment/Plan VTE Prophylaxis VTE Prophylaxis Intervention: contraindicated VTE Contraindication Reason: thrombocytopenia Lines/Catheters IV Catheter Type (from Nrsg): Central Line Central line still needed: Yes Urinary Cath still in place: Yes Reason Cath still needed: other (indicate) (ALOC) Assessment/Plan Problems: (1) Altered consciousness Comment: CT head no acute bleed or lesions. Concern for ETOH withdarwl seizure. May be related to patient's underlying sepsis. (2) Acute renal failure (ARF) Comment: Some improvement with IV fluids. Appreciate Dr. Baer input (3) Thrombocytopenia Comment: uncertain etiology. Patient with a history of ETOH dependance, but liver profile with exception of platelets within normal range. Will transfuse i unit platelets (4) Septicemia due to Gram negative organism Comment: On IV Maxipime (5) EtOH dependence (6) Altered breathing pattern Comment: Acidosis versus post ictal pattern (7) Hypotension Comment: Likely secondary to sepsis. On Cardiopressor. Assessment/Plan Patient status guarded. Have ordered EEG evaluation. Spoke with Dr. Musa who will evaluate patent and assist is care. Placement of PICC line ordered. Subjective 24 Hr Interval Summary Free Text/Dictation Last night rapid response called when nurse noted patient to be unresponsive and with pupils pinpoint. She was given Narcan with no improvement. Patient was transferred to ICU for further stabilization. CT head was ordered. Patient had already been on IV antibiotic for a UTI Exam/Review of Systems Vital Signs Vitals Vital Signs Date Time Temp Pulse Resp B/P Pulse Ox O2 Delivery O2 Flow Rate FiO2 07/25/17 13:00 106 27 122/55 95 Nasal Cannula 5.0 07/25/17 12:00 98.7 Intake and Output 07/24/17 07/24/17 07/25/17 15:00 23:00 07:00 Intake Total 1645.54 ml 1493.745 ml Output Total 100 ml 300 ml Balance 1545.54 ml 1193.745 ml Exam Minimally responsive but improved since last night Constitutional: other (disheveled) Head: normocephalic Eyes: other (pinpoint and sluggish) ENMT: other Neck: supple Respiratory: clear to auscultation, other (kushmaul breathing) Cardiovascular: regular rate and rhythm Gastrointestinal: soft Musculoskeletal: other (venous stasis ) Extremities: normal pulses Neurological: other (ALOC) Results Labs and cultures reviewed Result Diagram: 07/25/17 0400 07/25/17 0400 Results 24 hrs Laboratory Tests Test 07/24/17 17:39 07/24/17 19:25 07/24/17 19:37 07/24/17 19:47 Lactic Acid Level 1.3 Thyroid Stimulating Hormone (TSH) 6.530 H Bedside Glucose 73 Blood Gas Specimen Source Blood arterial Arterial Blood Date Drawn 07/24/2017 8:15:21 PM Arterial Blood pH (Temp corrected) 7.291 *L Arterial Blood pCO2 (Temp correct) 38.0 Arterial Blood pO2 (Temp corrected) 206.8 H Arterial Blood HCO3 17.9 L Arterial Blood Base Excess -8.0 L Arterial Blood Oxygen Saturation 99.1 H Sanjeev Test ACCEPTAB Arterial Blood Gas Puncture Site Left Radial Arterial Blood Carboxyhemoglobin 0.1 Arterial Blood Methemoglobin 0.4 Blood Gas A-a O2 Differential 468.2 H Oxyhemoglobin Percent 98.6 Total Hemoglobin 12.4 Blood Gas Temperature 37.0 Blood Gas Modality MASK - NRB FiO2 100.0 Blood Gas Critical Value Read Back YAHAIRA KHAN Blood Gas Notified Whom MA Blood Gas Notified Time 07/24/2017 8:31:52 PM Troponin I 0.014 Ethyl Alcohol Level < 10.0 Test 07/24/17 19:48 07/25/17 04:00 07/25/17 11:53 07/25/17 12:44 Lactic Acid Level 1.1 White Blood Count 26.8 #H Red Blood Count 3.53 L Hemoglobin 11.9 L Hematocrit 34.6 L Mean Corpuscular Volume 98.0 Mean Corpuscular Hemoglobin 33.7 H Mean Corpuscular Hemoglobin Concent 34.4 Red Cell Distribution Width 15.4 H Platelet Count 19 #*L Mean Platelet Volume Neutrophils % Segmented Neutrophils % (Manual) 74 Band Neutrophils % (Manual) 15 H Lymphocytes % Lymphocytes % (Manual) 5 L Reactive Lymphocytes % (Manual) 2 H Monocytes % Monocytes % (Manual) 3 Eosinophils % Eosinophils % (Manual) 1 Basophils % Nucleated Red Blood Cells % 0.0 Neutrophils # Neutrophils # (Manual) 20.9 H Band Neutrophils # 4.0 H Absolute Lymphocytes (Manual) 1.3 Lymphocytes # Reactive Lymphocytes # 0.5 H Monocytes # Absolute Monocytes (Manual) 0.8 Eosinophils # Basophils # Nucleated Red Blood Cells # Platelet Estimate SIG DECREASED Poikilocytosis 1+ Anisocytosis 1+ Sodium Level 133 L Potassium Level 3.9 Chloride Level 104 Carbon Dioxide Level 18 L Anion Gap 15 Blood Urea Nitrogen 78 H Creatinine 2.78 H Glucose Level 151 Hemoglobin A1c 5.1 Calcium Level 7.3 L Phosphorus Level 3.7 Magnesium Level 2.4 Total Bilirubin 0.3 Direct Bilirubin 0.10 # Indirect Bilirubin 0.2 Aspartate Amino Transf (AST/SGOT) 49 H Alanine Aminotransferase (ALT/SGPT) 37 Alkaline Phosphatase 318 H Total Protein 5.0 L Albumin 2.1 L Globulin 2.90 Albumin/Globulin Ratio 0.72 Blood Gas Specimen Source Blood arterial Arterial Blood Date Drawn 07/25/2017 12:20:39 PM Arterial Blood pH (Temp corrected) 7.274 *L Arterial Blood pCO2 (Temp correct) 44.3 Arterial Blood pO2 (Temp corrected) 71.4 L Arterial Blood HCO3 20.1 L Arterial Blood Base Excess -6.6 L Arterial Blood Oxygen Saturation 94.1 L Sanjeev Test ACCEPTAB Arterial Blood Gas Puncture Site Right Radial Arterial Blood Carboxyhemoglobin 0.6 Arterial Blood Methemoglobin 0.4 Blood Gas A-a O2 Differential 133.9 H Oxyhemoglobin Percent 93.2 Total Hemoglobin 13.5 Blood Gas Temperature 37.0 Blood Gas Modality NASAL CANNULA FiO2 36.0 Blood Gas Critical Value Read Back Sanchez ARANGO RN Blood Gas Notified Whom JLD Blood Gas Notified Time 07/25/2017 12:34:46 PM Bedside Glucose 148 Medications Medications Current Medications Morphine Sulfate (morphine) 2 mg Q4H PRN IV back pain Last administered on 07/24 20:46; Admin Dose 2 MG; Start 07/24/17 at 17:30 Ondansetron HCl (Zofran Inj) 4 mg Q6H PRN IV NAUSEA AND/OR VOMITING; Start at 19:00 Morphine Sulfate 4 mg 4 mg Q4H PRN IV PAIN LEVEL 7-10; Start 07/24/17 at 19:00 Dextrose/Sodium Chloride 1,000 ml @ 200 mls/hr Q5H IV Last administered on 05:00; Admin Dose 200 MLS/HR; Start 07/24/17 at 19:30 Norepinephrine 250 ml @ 1.875 mls/ hr TITRATE IV Last administered on 09:59; Admin Dose 5.625 MLS/HR; Start 07/24/17 at 21:00 Cefepime HCl 50 ml @ 100 mls/hr Q24H IVPB Last administered on 07/25/17 11:04 ; Admin Dose 100 MLS/HR; Start 07/25/17 at 10:00 Fluconazole (Diflucan 200 Mg/ NS (Pmx)) 100 ml @ 100 mls/hr Q24H IVPB Last administered on 07/25/17 11:48; Admin Dose 100 MLS/HR; Start 07/25/17 at 11:00 Diagnostic Test (Pha) (Accu-Chek) 1 ea 02 XX ; Start 07/26/17 at 02:00 Insulin Aspart (Novolog Insulin Pen) NOVOLOG *MILD* ALGORI... Q4 SC Last administered on 07/25/17 12:52; Admin Dose 1 UNIT; Start 07/25/17 at 13:00 Miscellaneous Information 1 ea NOTE XX ; Start 07/25/17 at 10:30 Glucose (Glutose) 15 gm Q15M PRN PO DECREASED GLUCOSE; Start 07/25/17 at 10:30 Glucose (Glutose) 22.5 gm Q15M PRN PO DECREASED GLUCOSE; Start 07/25/17 at 10: 30 Dextrose (D50w Syringe) 25 ml Q15M PRN IV DECREASED GLUCOSE; Start 07/25/17 at 10:30 Dextrose (D50w Syringe) 50 ml Q15M PRN IV DECREASED GLUCOSE; Start 07/25/17 at 10:30 Glucagon (Glucagen) 1 mg Q15M PRN IM DECREASED GLUCOSE; Start 07/25/17 at 10:30 Glucose (Glutose) 15 gm Q15M PRN BUCCAL DECREASED GLUCOSE; Start 07/25/17 at 10 :30 Nystatin (Nystatin Powder) 1 applic BID TOP Last administered on 07/25/17 12: 48; Admin Dose 1 APPLIC; Start 07/25/17 at 13:00 MENA COELHO MD Jul 25, 2017 13:49
[2017-07-25] MEDS ORDERED: NA BICARBONATE 8.4% 50 ML SYG IV STA (15:30)
--- NOTE | 2017-07-25 15:37 | CONS ---
Date/Time of Note Date/Time of Note DATE: 07/25/17 TIME: 15:36 Consultation Date/Type/Reason Admit Date/Time Jul 24, 2017 at 11:53 Date of Consultation: Jul 25, 2017 Type of Consultation: pulmonary dictated # [id number] Constitutional: poor po, requiring IVF Gastrointestinal: pain Musculoskeletal: back pain Social History Smoking Status: Former smoker Exam/Review of Systems Vital Signs Vitals Vital Signs Date Time Temp Pulse Resp B/P Pulse Ox O2 Delivery O2 Flow Rate FiO2 07/25/17 15:00 101 28 113/56 95 Nasal Cannula 5.0 07/25/17 12:00 98.7 Intake and Output 07/24/17 07/24/17 07/25/17 15:00 23:00 07:00 Intake Total 1645.54 ml 1493.745 ml Output Total 100 ml 300 ml Balance 1545.54 ml 1193.745 ml Results Result Diagram: 07/25/17 0400 07/25/17 0400 Results 24 hrs Laboratory Tests Test 07/24/17 17:39 07/24/17 19:25 07/24/17 19:37 07/24/17 19:47 Lactic Acid Level 1.3 Thyroid Stimulating Hormone (TSH) 6.530 H Bedside Glucose 73 Blood Gas Specimen Source Blood arterial Arterial Blood Date Drawn 07/24/2017 8:15:21 PM Arterial Blood pH (Temp corrected) 7.291 *L Arterial Blood pCO2 (Temp correct) 38.0 Arterial Blood pO2 (Temp corrected) 206.8 H Arterial Blood HCO3 17.9 L Arterial Blood Base Excess -8.0 L Arterial Blood Oxygen Saturation 99.1 H Sanjeev Test ACCEPTAB Arterial Blood Gas Puncture Site Left Radial Arterial Blood Carboxyhemoglobin 0.1 Arterial Blood Methemoglobin 0.4 Blood Gas A-a O2 Differential 468.2 H Oxyhemoglobin Percent 98.6 Total Hemoglobin 12.4 Blood Gas Temperature 37.0 Blood Gas Modality MASK - NRB FiO2 100.0 Blood Gas Critical Value Read Back YAHAIRA KHAN Blood Gas Notified Whom LIN[facility]OD Blood Gas Notified Time 07/24/2017 8:31:52 PM Troponin I 0.014 Ethyl Alcohol Level < 10.0 Test 07/24/17 19:48 07/25/17 04:00 07/25/17 11:53 07/25/17 12:00 Lactic Acid Level 1.1 White Blood Count 26.8 #H Red Blood Count 3.53 L Hemoglobin 11.9 L Hematocrit 34.6 L Mean Corpuscular Volume 98.0 Mean Corpuscular Hemoglobin 33.7 H Mean Corpuscular Hemoglobin Concent 34.4 Red Cell Distribution Width 15.4 H Platelet Count 19 #*L Mean Platelet Volume Neutrophils % Segmented Neutrophils % (Manual) 74 Band Neutrophils % (Manual) 15 H Lymphocytes % Lymphocytes % (Manual) 5 L Reactive Lymphocytes % (Manual) 2 H Monocytes % Monocytes % (Manual) 3 Eosinophils % Eosinophils % (Manual) 1 Basophils % Nucleated Red Blood Cells % 0.0 Neutrophils # Neutrophils # (Manual) 20.9 H Band Neutrophils # 4.0 H Absolute Lymphocytes (Manual) 1.3 Lymphocytes # Reactive Lymphocytes # 0.5 H Monocytes # Absolute Monocytes (Manual) 0.8 Eosinophils # Basophils # Nucleated Red Blood Cells # Platelet Estimate SIG DECREASED Poikilocytosis 1+ Anisocytosis 1+ Sodium Level 133 L Potassium Level 3.9 Chloride Level 104 Carbon Dioxide Level 18 L Anion Gap 15 Blood Urea Nitrogen 78 H Creatinine 2.78 H Glucose Level 151 Hemoglobin A1c 5.1 Calcium Level 7.3 L Phosphorus Level 3.7 Magnesium Level 2.4 Total Bilirubin 0.3 Direct Bilirubin 0.10 # Indirect Bilirubin 0.2 Aspartate Amino Transf (AST/SGOT) 49 H Alanine Aminotransferase (ALT/SGPT) 37 Alkaline Phosphatase 318 H Total Protein 5.0 L Albumin 2.1 L Globulin 2.90 Albumin/Globulin Ratio 0.72 Blood Gas Specimen Source Blood arterial Arterial Blood Date Drawn 07/25/2017 12:20:39 PM Arterial Blood pH (Temp corrected) 7.274 *L Arterial Blood pCO2 (Temp correct) 44.3 Arterial Blood pO2 (Temp corrected) 71.4 L Arterial Blood HCO3 20.1 L Arterial Blood Base Excess -6.6 L Arterial Blood Oxygen Saturation 94.1 L Sanjeev Test ACCEPTAB Arterial Blood Gas Puncture Site Right Radial Arterial Blood Carboxyhemoglobin 0.6 Arterial Blood Methemoglobin 0.4 Blood Gas A-a O2 Differential 133.9 H Oxyhemoglobin Percent 93.2 Total Hemoglobin 13.5 Blood Gas Temperature 37.0 Blood Gas Modality NASAL CANNULA FiO2 36.0 Blood Gas Critical Value Read Back Sanchez ARANGO RN Blood Gas Notified Whom JLD Blood Gas Notified Time 07/25/2017 12:34:46 PM Urine Random Creatinine 77.93 Urine Random Sodium 46 Test 07/25/17 12:44 Bedside Glucose 148 Medications Medications Current Medications Morphine Sulfate (morphine) 2 mg Q4H PRN IV back pain Last administered on 07/24 20:46; Admin Dose 2 MG; Start 07/24/17 at 17:30 Ondansetron HCl (Zofran Inj) 4 mg Q6H PRN IV NAUSEA AND/OR VOMITING; Start at 19:00 Morphine Sulfate 4 mg 4 mg Q4H PRN IV PAIN LEVEL 7-10; Start 07/24/17 at 19:00 Dextrose/Sodium Chloride 1,000 ml @ 200 mls/hr Q5H IV Last administered on 14:02; Admin Dose 200 MLS/HR; Start 07/24/17 at 19:30 Norepinephrine 250 ml @ 1.875 mls/ hr TITRATE IV Last administered on 09:59; Admin Dose 5.625 MLS/HR; Start 07/24/17 at 21:00 Cefepime HCl 50 ml @ 100 mls/hr Q24H IVPB Last administered on 07/25/17 11:04 ; Admin Dose 100 MLS/HR; Start 07/25/17 at 10:00 Fluconazole (Diflucan 200 Mg/ NS (Pmx)) 100 ml @ 100 mls/hr Q24H IVPB Last administered on 07/25/17 11:48; Admin Dose 100 MLS/HR; Start 07/25/17 at 11:00 Diagnostic Test (Pha) (Accu-Chek) 1 ea 02 XX ; Start 07/26/17 at 02:00 Insulin Aspart (Novolog Insulin Pen) NOVOLOG *MILD* ALGORI... Q4 SC Last administered on 07/25/17 12:52; Admin Dose 1 UNIT; Start 07/25/17 at 13:00 Miscellaneous Information 1 ea NOTE XX ; Start 07/25/17 at 10:30 Glucose (Glutose) 15 gm Q15M PRN PO DECREASED GLUCOSE; Start 07/25/17 at 10:30 Glucose (Glutose) 22.5 gm Q15M PRN PO DECREASED GLUCOSE; Start 07/25/17 at 10: 30 Dextrose (D50w Syringe) 25 ml Q15M PRN IV DECREASED GLUCOSE; Start 07/25/17 at 10:30 Dextrose (D50w Syringe) 50 ml Q15M PRN IV DECREASED GLUCOSE; Start 07/25/17 at 10:30 Glucagon (Glucagen) 1 mg Q15M PRN IM DECREASED GLUCOSE; Start 07/25/17 at 10:30 Glucose (Glutose) 15 gm Q15M PRN BUCCAL DECREASED GLUCOSE; Start 07/25/17 at 10 :30 Nystatin (Nystatin Powder) 1 applic BID TOP Last administered on 07/25/17t 12: 48; Admin Dose 1 APPLIC; Start 07/25/17 at 13:00 IVETTE SINGER Jul 25, 2017 15:37
--- NOTE | 2017-07-25 16:11 | RADRPT ---
PROCEDURE: XR Chest. CLINICAL INDICATION: PICC placement evaluation TECHNIQUE: Single view of the chest COMPARISON: Chest radiograph July 24, 2017 FINDINGS: There is a left-sided PICC with its tip in the right atrium. Retracted 4 cm which is are location is cavoatrial junction. There is bilateral patchy airspace opacity that could reflect volume overload and / or pneumonia. Th is is unchanged. There is moderate enlargement the cardiac silhouette and small bilateral pleural effusions. There is no pneumothorax. There is no acute osseous abnormality. IMPRESSION: 1. Left-sided PICC with its tip in the right atrium. Retracted 3-4 cm if desired position is cavoat rial junction. 2. Bilateral patchy airspace opacity may reflect pulmonary vascular congestion and / or pneumonia. 3. Mildly enlarged cardiac silhouette and small bilateral pleural effusions. RPTAT: UU .Genaro Ram MD, Date Time Electronically viewed and signed by .Genaro Ram MD, on 07/25/2017 16:10 .K/
[2017-07-25] MEDS ORDERED: SODIUM BICARBONATE (IV ADD) 100 MEQ in DEXTROSE 5% 900 ML IV SCH (16:30)
--- NOTE | 2017-07-25 16:37 | RADRPT ---
PROCEDURE: XR Chest. CLINICAL INDICATION: PICC line placement evaluation TECHNIQUE: Single view of the chest COMPARISON: Prior chest radiographs earlier in the day, most recently July 25, 2017 at 04:18 p.m. FINDINGS: There is a left-sided PICC with its tip at the lower SVC near the cavoatrial junction. There is redemonstration of bilateral airspace opacity enlargement of the cardiac silhouette. There are are small bilateral pleural effusions. There is no pneumothorax. There is no acute osseous abnormality. IMPRESSION: 1. Left-sided PICC with its tip at the lower SVC near the cavoatrial junction. 2. Otherwise unchanged examination. RPTAT: UU .Genaro Ram MD, MD Date Time Electronically viewed and signed by .Genaro Ram MD, on 07/25/2017 16:37 .K/
--- NOTE | 2017-07-25 16:42 | RADRPT ---
PROCEDURE: XR Chest. CLINICAL INDICATION: PICC placement evaluation TECHNIQUE: Single view of the chest COMPARISON: Chest radiographs earlier in the day FINDINGS: The left-sided PICC is now coiled in the left axilla. Recommend advancement. There are bilateral airspace opacity with enlargement of the cardiac silhouette. There are small bilateral pleural effusions. There is no pneumothorax. There is no acute osseous abnormality. IMPRESSION: 1. Left-sided PICC with its tip coiled in the left axilla. Recommend repositioning. 2. Otherwise no significant change from recent prior. RPTAT: UU .Genaro Ram MD, MD Date Time Electronically viewed and signed by .Genaro Ram MD, on 07/25/2017 16:42 .K/
--- NOTE | 2017-07-25 16:43 | RADRPT ---
PROCEDURE: XR Chest. CLINICAL INDICATION: PICC placement evaluation TECHNIQUE: Single view of the chest COMPARISON: Chest radiographs earlier in the day FINDINGS: There is a left-sided PICC with its tip in the upper right atrium. This could be retracted 2-3 cm as clinically warranted. Cardiac silhouette is mildly enlarged and there is bilateral airspace opacity. There are small bilateral pleural effusions. There is no pneumothorax. There is no acute osseous abnormality. IMPRESSION: 1. Left-sided PICC with its tip in the upper right atrium. 2. Otherwise no significant change from prior. RPTAT: UU .Genaro Ram MD, MD Date Time Electronically viewed and signed by .Genaro Ram MD, on 07/25/2017 16:43 .K/
[2017-07-25] MEDS ORDERED: NORepinephrine 8MG/250 ML (PMX 0 ML ONE (17:15)
--- NOTE | 2017-07-25 17:15 | RADRPT ---
PROCEDURE: Ultrasound guidance for placement of needle in left upper extremity vein. CLINICAL INDICATION: Venous access. TECHNIQUE: Limited sonography of the left upper extremity was performed. Ultrasound images were recorded and s tored in the patient's medical record. COMPARISON: None. FINDINGS: The ultrasound images demonstrate a patent left upper extremity vein. The PICC line was inserted by the PICC line nurse. IMPRESSION: 1. Ultrasound guidance for a needle placement in a left upper extremity vein. 2. The left upper extremity vein is patent. RPTAT: QQ .Geoff Wood MD, MD Date Time Electronically viewed and signed by .Geoff Wood MD, MD on 07/25/2017 17:15 .R/
[2017-07-25 17:51] LABS: Allen Test ACCEPTAB; Arterial COHb 0.4 % (0.0-3.0)
[2017-07-25] MEDS: SODIUM BICARBONATE (IV ADD) 100 MEQ in DEXTROSE 5% 900 ML IV SCH (18:22)
[2017-07-25 19:35] LABS: AADO2 Arterial 128.9 mmHg (7.0-24.0); Allen Test ACCEPTAB; Arterial Base Excess -4.7 mmol/L (-3.0-3); Arterial COHb 0.4 % (0.0-3.0); Arterial Fraction of Oxyhgb 96.5 % (93.0-99.0); Arterial HCO3 22.7 mmol/L (22.0-26.0); Arterial MetHb 0.5 % (0.0-1.5); Arterial Total Hemglobin 13.7 g/dl (12.0-18.0); MODE MASK - BIPAP
--- NOTE | 2017-07-25 20:59 | CONS ---
DATE OF ADMISSION: 07/24/2017 DATE OF CONSULTATION: 07/25/2017 HISTORY OF PRESENT ILLNESS: The patient is a 71-year-old white lady, who was admitted yesterday with complaints of back pain. Upon evaluation, patient was diagnosed with UTI with severe sepsis. The patient also has a positive blood cultures for gram- negative rods. The patient also was complaining of back pain, and last evening she got morphine, which resulted in altered mental status as well as hypotension. The patient then was subsequently transferred to ICU and was pretty agitated, currently getting Levophed at 15 mcg per minute. The patient is not much responsive, but according to medical records, the patient did have normal mental status yesterday. She also underwent stat CT imaging of the head, which has been unremarkable as well, however, metabolic panel is showing metabolic acidosis. ABG also was done, which is showing mild metabolic acidosis without any evidence of significant hypercapnia. PAST MEDICAL AND SURGICAL HISTORY: 1. History of seizures. 2. Back pain. 3. Neuropathy. 4. Possibly chronic renal insufficiency. 5. History of tonsillectomy. 6. History of leg stripping and . 7. Patient also history of orbital fracture several years ago. CURRENT MEDICATIONS: Cefepime 1 g every 24 hours, the patient also received a dose of Rocephin, patient is on D5 normal saline at 200 mL/h, fluconazole 200 mg IV daily, Levophed 60 mcg per minute, morphine on a p.r.n. basis, currently on hold, sliding scale insulin. ALLERGIES: SULFA DRUGS. SOCIAL HISTORY: Not available. FAMILY HISTORY: Family history not available. REVIEW OF SYSTEMS: Currently unable to be obtained. PHYSICAL EXAMINATION: An elderly woman, obese, minimally responsive to noxious stimuli. VITAL SIGNS: Temperature 98 degrees Fahrenheit, respiratory rate is 16 to 18 per minute, heart rate 80 per minute, blood pressure is 96/54, O2 sat is 95 percent on 2 L nasal cannula. HEENT: Oral mucosa was dry. The patient does have multiple carious teeth. Pupils are small bilaterally. NECK: Supple neck. No neck masses. No lymphadenopathy. No neck bruits. CHEST: Diminished, but clear breath sounds, S1, S2 audible. No murmurs. Regular rhythm. ABDOMEN: Soft, protuberant. No scars present. Bowel sounds audible. Umbilicus is inverted. EXTREMITIES: Chronic appearing skin changes in both lower extremities. Pulses 2 plus bilaterally. No clubbing. ETYMOLOGY TEACHER: Patient is minimally responsive. RADIOLOGY: Chest x-ray was reviewed from yesterday, which is showing mild bilateral infiltrates. CT abdomen is essentially unremarkable except for diverticulosis without any diverticulitis. LABORATORY DATA: There has been a spike in the white cell count from 7.0 yesterday to 26.8, today, hemoglobin is 11.9, platelet count has dropped from 34 to 19,000. Basic metabolic panel from yesterday, sodium 128, potassium 4.5, chloride 98, bicarb 17, BUN 84, creatinine 3.0. Labs from today from 4 a.m., sodium 133, potassium 3.9, chloride 104, bicarb 18, BUN 78, creatinine 2.7, AST of 49, ALT 37. ABG done at 11:53 a.m. on nasal cannula 4 L, pH 7.27, CO2 of 44, pO2 of 71, O2 sat 95 percent. Blood culture growing gram-negative jessenia. Urine culture growing gram-negative rods as well. Urinalysis is grossly positive for UTI. ASSESSMENT: 1. Patient admitted with back pain as well as severe urinary tract infection with sepsis. 2. Possibly bilateral pneumonia. 3. Likely underlying chronic renal insufficiency. 4. Metabolic acidosis. 5. Severe thrombocytopenia. RECOMMENDATIONS: Add sodium bicarbonate drip, patient was also given 2 amps IV push and continue IV hydration, continue IV fluids for now, obtain follow up chest x-ray as well as CBG. Dictated By: Ernesto Watson MD /carmelina/shyann /Document#: [id number]
[2017-07-25 21:06] LABS: AADO2 Arterial 55.8 mmHg (7.0-24.0); Allen Test ACCEPTAB; Arterial Base Excess -4.5 mmol/L (-3.0-3); Arterial COHb 0.7 % (0.0-3.0); Arterial HCO3 24.6 mmol/L (22.0-26.0); Arterial MetHb 0.5 % (0.0-1.5); Arterial Total Hemglobin 14.1 g/dl (12.0-18.0); Blood Gas IEPAP 18/8; Blood Gas PS 10; MODE MASK - BIPAP
--- NOTE | 2017-07-25 21:54 | QN ---
Documentation Comment Endotracheal Intubation by me: Pre assessment performed. Pre-oxygenation performed with 100% oxygen RSI: Performed w/o complication or hypoxic events. Medications as ordered. Blade: MAC 4 Glidescope ET Tube: 7.5 cm Depth: 23 cm at the lip Intubation confirmed by colorimetric CO2, equal breath sounds, quiet over the stomach. Chest x-ray pending at this time. DORIS GUTIERREZ MD Jul 25, 2017 21:54
[2017-07-25] MEDS ORDERED: SUCCINYLCHOLINE CHLORIDE 100 MG/5 ML SYG IV ONE (22:00)
[2017-07-25] MEDS ORDERED: ETOMIDATE 20 MG INJ IV ONE (22:00)
[2017-07-25] MEDS: PROPOFOL 100 ML IV SCH (22:19)
--- NOTE | 2017-07-25 22:33 | RADRPT ---
PROCEDURE: XR Chest. CLINICAL INDICATION: ET tube placement TECHNIQUE: Single AP portable chest. COMPARISON: 09/28/2016 Chest x-ray FINDINGS: The cardiac silhouette is enlarged with vascular congestion and bilateral pleural effusions most com patible with CHF. See. Atherosclerotic calcification of the aorta. The lungs are clear without ple ural effusion or focal consolidation. No pneumothorax. The osseous structures and soft tissues are u nremarkable. IMPRESSION: 1. Cardiomegaly and vascular congestion with pleural effusions most compatible with CHF. Superimpose multifocal pneumonia cannot be excluded. 2. Endotracheal tube tip 2 cm above the tamiko . RPTAT:AAJJ Physician Patricia Date Time Electronically viewed and signed by Physician Patricia on 07/25/2017 22:33 KESHAWN/
[2017-07-25 23:20] LABS: AADO2 Arterial 200.4 mmHg (7.0-24.0); Allen Test ACCEPTAB; Arterial Base Excess -3.1 mmol/L (-3.0-3); Arterial COHb 0.4 % (0.0-3.0); Arterial HCO3 23.6 mmol/L (22.0-26.0); Arterial MetHb 0.5 % (0.0-1.5); Arterial Total Hemglobin 13.3 g/dl (12.0-18.0); MODE VENT - AC
[2017-07-26] VITALS (107 sets, daily range): BP systolic 70–123; BP diastolic 28–74; PULSE 81–105; RESP 16–26
[2017-07-26] MEDS: INSULIN ASPART [NOVOLOG] 3 ML PEN SC SCH ×6 (01:21→20:30)
[2017-07-26] MEDS: ACCU-CHEK XX SCH (02:00)
[2017-07-26] MEDS: SODIUM BICARBONATE (IV ADD) 100 MEQ in DEXTROSE 5% 900 ML IV SCH (03:05)
[2017-07-26 06:14] LABS: ABNORMAL IP MESSAGE 1; HEMOGLOBIN 11.3 g/dl (12.0-16.0); MEAN CORPUSCULAR HEMOGLOBIN 34.2 pg (29.0-33.0); MEAN CORPUSCULAR HGB CONC 35.3 g/dl (32.0-37.0); MEAN PLATELET VOLUME 12.6 fl (7.4-10.4); RED CELL DISTRIBUTION WIDTH 15.8 % (11.5-14.5); WHITE BLOOD COUNT 17.5 10^3/ul (4.8-10.8)
[2017-07-26 06:22] LABS: PLATELET COUNT 23 10^3/UL (140-415); POSITIVE DIFF @See below
[2017-07-26 06:38] LABS: ALBUMIN 2.1 g/dl (3.3-4.9); ALBUMIN/GLOBULIN RATIO 0.77; BILIRUBIN,DIRECT 0.2 mg/dl (0.00-0.20); BILIRUBIN,INDIRECT 0.3 mg/dl (0-1.1); BILIRUBIN,TOTAL 0.5 mg/dl (0.2-1.3); CALCIUM 7.5 mg/dl (8.4-10.2); CREATININE 2.22 mg/dl (0.44-1.00); MAGNESIUM 2.4 mg/dl (1.7-2.5); PHOSPHORUS 3.3 mg/dl (2.5-4.9); POTASSIUM 3.2 mmol/L (3.5-5.1); TOTAL PROTEIN 4.8 g/dl (6.1-8.1)
[2017-07-26 07:16] LABS: ANISOCYTOSIS 3+ (0-0); EOSINOPHILS % (M) 2 % (0-7); MONOCYTES % (M) 6 % (0-11); PLATELET ESTIMATE SIG DECREASED; POIKILOCYTOSIS 1+ (0-0); POLYCHROMASIA 1+ (0-0); SPHEROCYTES 1+ (0-0)
[2017-07-26 08:22] LABS: AADO2 Arterial 184.6 mmHg (7.0-24.0); Arterial Base Excess -0.9 mmol/L (-3.0-3); Arterial Fraction of Oxyhgb 96.3 % (93.0-99.0); Arterial HCO3 24.2 mmol/L (22.0-26.0); Arterial MetHb 0.4 % (0.0-1.5); Arterial Total Hemglobin 12.4 g/dl (12.0-18.0); MODE VENT - AC
[2017-07-26] MEDS: BALSAM PERU/CASTOR OIL 60 GM TUBE TOP SCH ×2 (08:33→20:37)
[2017-07-26] MEDS: NYSTATIN 30 GM POWDER BTL TOP SCH ×2 (08:33→20:37)
[2017-07-26] MEDS: PROPOFOL 100 ML IV SCH ×2 (08:42→21:27)
--- NOTE | 2017-07-26 08:43 | RADRPT ---
PROCEDURE: XR Chest. CLINICAL INDICATION: Shortness of breath. TECHNIQUE: Single frontal view. COMPARISON: 07/25/2017. FINDINGS: The endotracheal tube, nasogastric tube, and left arm PICC line remain in satisfactory position. Pul monary edema is unchanged. The lungs are otherwise clear. The heart is enlarged. There is no pleural effusion. There is no pneumothorax. IMPRESSION: 1. No change from 07/25/2017. RPTAT: QQ .Geoff Wood MD, MD Date Time Electronically viewed and signed by .Geoff Wood MD, MD on 07/26/2017 08:42 .R/
--- NOTE | 2017-07-26 08:52 | PN ---
DATE: 07/25/2017 SUBJECTIVE DATA: The patient is 71 years old. She was unresponsive. We got a call about her for reading EEG for Dr. . TECHNICAL: EEG was utilized using 10-20 international electrode system with photic stimulation. Bilateral occipital hemispheric view shows delta and theta waves with 2-3 Hz low amplitude and symmetric bilateral. Photic stimulation was done in . No eleptiform discharge or seizure activity is recorded. IMPRESSION: This is an abnormal electroencephalogram showing ngeneralized slowing consistent with acute encephalopathy. No epileptiform discharge or seizure activity is recorded. Follow up EEG may be needed if clinically indicated. Again, thank you. Dictated By: Wili Clark MD /[email or web address]/[email or web address] /Document#: [id number]
--- NOTE | 2017-07-26 10:36 | CONS ---
Date/Time of Note Date/Time of Note DATE: 07/26/17 TIME: 10:32 Consult Date/Type/Reason Admit Date/Time Jul 24, 2017 at 11:53 Initial Consult Date 07/25/17 Type of Consultation: Pulmonary Subjective Patient had respiratory distress yesterday failed noninvasive positive pressure ventilation requiring intubation mechanical ventilation. This morning continues vasopressor support. Objective Vital Signs Date Time Temp Pulse Resp B/P Pulse Ox O2 Delivery O2 Flow Rate FiO2 07/26/17 09:01 90 20 98 45 07/26/17 08:15 90/44 Mechanical Ventilator 07/26/17 07:45 100.6 07/25/17 16:15 5.0 Intake and Output 07/25/17 07/25/17 07/26/17 15:00 23:00 07:00 Intake Total 1249.30 ml 1631.577 ml 1375.850 ml Output Total 410 ml 385 ml 280 ml Balance 839.30 ml 1246.577 ml 1095.850 ml Exam PHYSICAL EXAMINATION GENERAL: Elderly lady intubated on mechanical ventilation appears comfortable at rest. VITAL SIGNS: see below. HEENT: Pupils equal, round, and reactive to light. CARDIAC: S1, S2, 1/6 systolic ejection murmur CHEST: Diminished air entry bilaterally. ABDOMEN: Mildly distended. Bowel sounds present no guarding or rebound EXTREMITIES: No cyanosis, clubbing edema +1 NEUROLOGIC: Generalized weakness Results/Medications Result Diagram: 07/26/17 0530 07/26/17 0530 Results 24 hrs Laboratory Tests Test 07/25/17 11:53 07/25/17 12:00 07/25/17 12:44 07/25/17 17:22 Blood Gas Specimen Source Blood arterial Arterial Blood Date Drawn 07/25/2017 12:20:39 PM Arterial Blood pH (Temp corrected) 7.274 *L Arterial Blood pCO2 (Temp correct) 44.3 Arterial Blood pO2 (Temp corrected) 71.4 L Arterial Blood HCO3 20.1 L Arterial Blood Base Excess -6.6 L Arterial Blood Oxygen Saturation 94.1 L Sanjeev Test ACCEPTAB Arterial Blood Gas Puncture Site Right Radial Arterial Blood Carboxyhemoglobin 0.6 Arterial Blood Methemoglobin 0.4 Blood Gas A-a O2 Differential 133.9 H Oxyhemoglobin Percent 93.2 Total Hemoglobin 13.5 Blood Gas Temperature 37.0 Blood Gas Modality NASAL CANNULA FiO2 36.0 Blood Gas Critical Value Read Back Sanchez ARANGO RN Blood Gas Notified Whom JLD Blood Gas Notified Time 07/25/2017 12:34:46 PM Urine Random Creatinine 77.93 Urine Random Sodium 46 Bedside Glucose 148 200 Test 07/25/17 17:34 07/25/17 21:00 07/25/17 21:57 07/25/17 23:00 Blood Gas Specimen Source Blood arterial Blood arterial Blood arterial Arterial Blood Date Drawn 07/25/2017 5:32:00 PM 07/25/2017 8:50:48 PM 07/25/2017 11:15:29 PM Arterial Blood pH (Temp corrected) 7.262 *L 7.207 *L 7.304 L Arterial Blood pCO2 (Temp correct) 51.6 H 63.4 H 48.6 H Arterial Blood pO2 (Temp corrected) 97.0 83.6 101.4 H Arterial Blood HCO3 22.7 24.6 23.6 Arterial Blood Base Excess -4.7 L -4.5 L -3.1 L Arterial Blood Oxygen Saturation 97.4 96.2 97.9 Sanjeev Test ACCEPTAB ACCEPTAB ACCEPTAB Arterial Blood Gas Puncture Site Right Radial Left Radial Left Radial Arterial Blood Carboxyhemoglobin 0.4 0.7 0.4 Arterial Blood Methemoglobin 0.5 0.5 0.5 Blood Gas A-a O2 Differential 128.9 H 55.8 H 200.4 H Oxyhemoglobin Percent 96.5 95.0 97.0 Total Hemoglobin 13.7 14.1 13.3 Blood Gas Temperature 37.0 37.0 37.0 Blood Gas Respiration Rate 16.0 20.0 20.0 Blood Gas Actual Respiration Rate 22 20 20 Blood Gas Modality MASK - BIPAP MASK - BIPAP VENT - AC FiO2 40.0 30.0 50.0 Blood Gas IPAP/EPAP Ratio 10/01 188 Blood Gas Critical Value Read Back E BILL HUANG JCHOU RN BHUMIKA, J RAuroraN Blood Gas Notified Whom JULIET PALUMBO MM Blood Gas Notified Time 07/25/2017 5:51:00 PM 07/25/2017 9:06:41 PM 07/25/2017 11:20:27 PM Blood Gas Pressure Support 10 Bedside Glucose 162 Blood Gas Tidal Volume 500.0 Blood Gas Low PEEP Setting 5.0 Blood Gas Inspiratory Pressure 26.0 Test 07/26/17 01:16 07/26/17 05:29 07/26/17 05:30 07/26/17 06:27 Bedside Glucose 197 164 Lab Scanned Report BLOOD TRANSFUSION White Blood Count 17.5 #H Red Blood Count 3.30 L Hemoglobin 11.3 L Hematocrit 32.0 L Mean Corpuscular Volume 97.0 Mean Corpuscular Hemoglobin 34.2 H Mean Corpuscular Hemoglobin Concent 35.3 Red Cell Distribution Width 15.8 H Platelet Count 23 #*L Mean Platelet Volume 12.6 H Neutrophils % Segmented Neutrophils % (Manual) 70 Band Neutrophils % (Manual) 17 H Lymphocytes % Lymphocytes % (Manual) 5 L Monocytes % Monocytes % (Manual) 6 Eosinophils % Eosinophils % (Manual) 2 Basophils % Nucleated Red Blood Cells % 0.0 Neutrophils # Neutrophils # (Manual) 12.8 H Band Neutrophils # 2.9 H Absolute Lymphocytes (Manual) 0.8 Lymphocytes # Monocytes # Absolute Monocytes (Manual) 1.0 H Eosinophils # Basophils # Nucleated Red Blood Cells # Platelet Estimate SIG DECREASED Polychromasia 1+ Poikilocytosis 1+ Anisocytosis 3+ Macrocytosis 3+ Spherocytes 1+ Sodium Level 138 Potassium Level 3.2 L Chloride Level 107 Carbon Dioxide Level 25 Anion Gap 9 # Blood Urea Nitrogen 73 H Creatinine 2.22 H Glucose Level 159 Calcium Level 7.5 L Phosphorus Level 3.3 Magnesium Level 2.4 Total Bilirubin 0.5 Direct Bilirubin 0.20 Indirect Bilirubin 0.3 Aspartate Amino Transf (AST/SGOT) 27 Alanine Aminotransferase (ALT/SGPT) 33 Alkaline Phosphatase 277 H Total Protein 4.8 L Albumin 2.1 L Globulin 2.70 Albumin/Globulin Ratio 0.77 Test 07/26/17 07:00 07/26/17 08:44 Blood Gas Specimen Source Blood arterial Arterial Blood Date Drawn 07/26/2017 7:50:37 AM Arterial Blood pH (Temp corrected) 7.378 Arterial Blood pCO2 (Temp correct) 42.1 Arterial Blood pO2 (Temp corrected) 88.4 Arterial Blood HCO3 24.2 Arterial Blood Base Excess -0.9 Arterial Blood Oxygen Saturation 97.1 Sanjeev Test ACCEPTAB Arterial Blood Gas Puncture Site Right Radial Arterial Blood Carboxyhemoglobin 0.4 Arterial Blood Methemoglobin 0.4 Blood Gas A-a O2 Differential 184.6 H Oxyhemoglobin Percent 96.3 Total Hemoglobin 12.4 Blood Gas Temperature 37.0 Blood Gas Respiration Rate 20.0 Blood Gas Actual Respiration Rate 20 Blood Gas Modality VENT - AC FiO2 45.0 Blood Gas Tidal Volume 500.0 Blood Gas Low PEEP Setting 2.0 Blood Gas IPAP/EPAP Ratio 12/5 Blood Gas Critical Value Read Back Tico HUANG RN Blood Gas Notified Whom KIAD Blood Gas Notified Time 07/26/2017 8:22:17 AM Bedside Glucose 149 Medications Current Medications Morphine Sulfate (morphine) 2 mg Q4H PRN IV back pain Last administered on 07/24 20:46; Admin Dose 2 MG; Start 07/24/17 at 17:30 Ondansetron HCl (Zofran Inj) 4 mg Q6H PRN IV NAUSEA AND/OR VOMITING; Start at 19:00 Morphine Sulfate 4 mg 4 mg Q4H PRN IV PAIN LEVEL 7-10; Start 07/24/17 at 19:00 Cefepime HCl 50 ml @ 100 mls/hr Q24H IVPB Last administered on 07/25/17 11:04 ; Admin Dose 100 MLS/HR; Start 07/25/17 at 10:00 Fluconazole (Diflucan 200 Mg/ NS (Pmx)) 100 ml @ 100 mls/hr Q24H IVPB Last administered on 07/25/17 11:48; Admin Dose 100 MLS/HR; Start 07/25/17 at 11:00 Diagnostic Test (Pha) (Accu-Chek) 1 ea 02 XX ; Start 07/26/17 at 02:00 Insulin Aspart (Novolog Insulin Pen) NOVOLOG *MILD* ALGORI... Q4 SC Last administered on 07/26/17 08:46; Admin Dose 1 UNIT; Start 07/25/17 at 13:00 Miscellaneous Information 1 ea NOTE XX ; Start 07/25/17 at 10:30 Glucose (Glutose) 15 gm Q15M PRN PO DECREASED GLUCOSE; Start 07/25/17 at 10:30 Glucose (Glutose) 22.5 gm Q15M PRN PO DECREASED GLUCOSE; Start 07/25/17 at 10: 30 Dextrose (D50w Syringe) 25 ml Q15M PRN IV DECREASED GLUCOSE; Start 07/25/17 at 10:30 Dextrose (D50w Syringe) 50 ml Q15M PRN IV DECREASED GLUCOSE; Start 07/25/17 at 10:30 Glucagon (Glucagen) 1 mg Q15M PRN IM DECREASED GLUCOSE; Start 07/25/17 at 10:30 Glucose (Glutose) 15 gm Q15M PRN BUCCAL DECREASED GLUCOSE; Start 07/25/17 at 10 :30 Nystatin 1 applic 1 applic BID TOP Last administered on 07/26/17 08:33; Admin Dose 1 APPLIC; Start 07/25/17 at 13:00 Norepinephrine/ Dextrose (Levophed/D5W) 500 ml @ 0 mls/hr TITRATE IV Last administered on 07/26/17 06:23; Admin Dose 41.25 MLS/HR; Start 07/25/17 at 17: 30 IV Flush 10 ml 10 ml PRN PRN IV IV PROTOCOL; Start 07/25/17 at 17:30 Sodium Bicarbonate 100 meq/Dextrose 1,000 ml @ 120 mls/hr Q8H20M IV Last administered on 07/26/17 03:05; Admin Dose 120 MLS/HR; Start 07/25/17 at 17:30 Propofol 100 ml @ 3.327 mls/ hr Q12H IV Last administered on 07/26/17 08:42; Admin Dose 9.969 MLS/HR; Start 07/25/17 at 22:00 Midazolam HCl 50 ml @ 1 mls/hr TITRATE IV ; Start 07/26/17 at 10:30 Fentanyl (Sublimaze) 100 ml @ 2.5 mls/hr TITRATE IV ; Start 07/26/17 at 10:30 Assessment/Plan Chief Complaint/Hosp Course Assessment 1. Encephalopathy unclear etiology. Toxic metabolic versus infectious. Consider West Nile virus and differential. Consider lumbar puncture. 2. Hypoxemic and hypercapnic respiratory failure yesterday with difficulty in protecting her airway. Required intubation and mechanical ventilation. 3. Septic shock. Continues vasopressor support. E. coli UTI noted. 4. Thrombocytopenia unclear etiology. Questionable DIC. 5. Renal insufficiency likely ATN injury on top of chronic renal insufficiency. Plan 1. Start tube feeding 2. Continue broad-spectrum antibiotic coverage, Continue vasopressor support. 3. Consider lumbar puncture if neurological status does not improve in the next few days. 4. Continue mechanical ventilation. 5. Switch from protocol to Versed and fentanyl. 6. Monitor renal function. Critical care time 40 minutes. Discussed with staff. Problems: DIMITRY VILLAVICENCIO MD, [facility] Jul 26, 2017 10:36
[2017-07-26] MEDS: FENTAnyl (DRIP) 1000 mcg/100mL 100 ML IV SCH ×2 (10:43→17:45)
[2017-07-26] MEDS: FLUCONAZOLE 200 MG/NS (PMX) 100 ML IVPB SCH (10:55)
[2017-07-26] MEDS: CEFEPIME 1GM/50 ML (PMX) 50 ML IVPB SCH (10:55)
[2017-07-26] MEDS: MIDAZOLAM (DRIP) 50 mg/50 mL 50 ML IV SCH ×2 (12:08→17:45)
--- NOTE | 2017-07-26 12:18 | CONS ---
DATE OF ADMISSION: 07/24/2017 DATE OF CONSULTATION: 07/25/2017 HISTORY OF PRESENT ILLNESS: The patient is a 71-year-old lady with a past medical history of her using in the past, admitted with thrombocytopenia, low platelet count. The patient admitted with the paramedics acute onset of low backache, renal insuffiencey, , admitted to the floor when she had decreased mini mental status. Initial EEG was ordered and CT scan, and I got a call about her for more evaluation and treatment. PAST MEDICAL HISTORY: Depression, bilateral knee pain, neuropathy, obesity. HOME MEDICATIONS: Lorazepam 1 mg t.i.d. for anxiety. ALLERGIES: SULFA. SURGICAL HISTORY: . PHYSICAL EXAMINATION: NEUROLOGIC: The patient does not follow any commands. Can open her eyes spontaneous for painful stimuli. Does not follow a simple command. CRANIAL NERVES: Cranial nerve II: Pupils equal on both sides, reactive to light. Cranial nerves II, IV and : Extraocular muscles intact. Cranial nerve V: Equal sensation to face. Cranial nerve VII: Symmetrical face. Cranial nerve VIII through XII: Could not assess. Motor exam: Moving right side to painful stimuli. Sensation decreased for glove and sock area for light touch and temperature. Coordination: Could not assess. HEART: Regular rate and rhythm. LUNGS: Equal breath sounds. ABDOMEN: Soft, relaxed, nondistended, nontender. IMPRESSION AND PLAN: 1. The patient is 71 years old with acute encephalopathy. We will follow up the patient with electroencephalogram for more evaluation and treatment. 2. Suspect underlying acute stroke, I will follow up the patient with MRI for more evaluation and treatment. 3. Thrombocytopenia. The patient will have a transfer of platelet. 4. Hypotension. Give the patient Levophed. 5. Underlying urinary tract infection. Give the patient IV antibiotic. 6. Keep the patient under decubitus ulcer prophylaxis as well as deep venous thrombosis prophylaxis. Again, thank you for asking me to see the patient with you. Dictated By: Wili Clark MD /[email or web address]/[email or web address] /Document#: [id number]
--- NOTE | 2017-07-26 12:21 | CONS ---
Date/Time of Note Date/Time of Note DATE: 07/26/17 TIME: 12:07 Assessment/Plan Assessment/Plan Chief Complaint/Hosp Course 1. Acute Renal Failure , due to combination of ATN and dehydration . Her renal function is improving . Will adjust IV fluids , check labs later today and and check in am . 2. ALOC , she is responsive today and opens eyes to verbal stimuli . 3. Hypotension , now on pressors 4. UTI on antibiotics . 5. Thrombocytopenia 6. Hyponatremia , correcting 7. Gram negative UTI and sepsis . I will add Levaquin . Problems: Consultation Date/Type/Reason Admit Date/Time Jul 24, 2017 at 11:53 Type of Consultation: Pulmonary 24 HR Interval Summary Free Text/Dictation She is in the ICU , sedated , intubated on a ventilator .She does open eyes to verbal stimuli . Exam/Review of Systems Vital Signs Vitals Vital Signs Date Time Temp Pulse Resp B/P Pulse Ox O2 Delivery O2 Flow Rate FiO2 07/26/17 11:30 89 20 73/42 97 Mechanical Ventilator 07/26/17 09:01 45 07/26/17 07:45 100.6 07/25/17 16:15 5.0 Intake and Output 07/25/17 07/25/17 07/26/17 15:00 23:00 07:00 Intake Total 1249.30 ml 1631.577 ml 1375.850 ml Output Total 410 ml 385 ml 280 ml Balance 839.30 ml 1246.577 ml 1095.850 ml Exam both lower extremeties with stasis changes . Constitutional: frail, non-verbal, obese ENMT: intubated Respiratory: wheezing Cardiovascular: regular rate and rhythm Gastrointestinal: soft Results Result Diagram: 07/26/17 0530 07/26/17 0530 Results 24 hrs Laboratory Tests Test 07/25/17 12:44 07/25/17 17:22 07/25/17 17:34 07/25/17 21:00 Bedside Glucose 148 200 Blood Gas Specimen Source Blood arterial Blood arterial Arterial Blood Date Drawn 07/25/2017 5:32:00 PM 07/25/2017 8:50:48 PM Arterial Blood pH (Temp corrected) 7.262 *L 7.207 *L Arterial Blood pCO2 (Temp correct) 51.6 H 63.4 H Arterial Blood pO2 (Temp corrected) 97.0 83.6 Arterial Blood HCO3 22.7 24.6 Arterial Blood Base Excess -4.7 L -4.5 L Arterial Blood Oxygen Saturation 97.4 96.2 Sanjeev Test ACCEPTAB ACCEPTAB Arterial Blood Gas Puncture Site Right Radial Left Radial Arterial Blood Carboxyhemoglobin 0.4 0.7 Arterial Blood Methemoglobin 0.5 0.5 Blood Gas A-a O2 Differential 128.9 H 55.8 H Oxyhemoglobin Percent 96.5 95.0 Total Hemoglobin 13.7 14.1 Blood Gas Temperature 37.0 37.0 Blood Gas Respiration Rate 16.0 20.0 Blood Gas Actual Respiration Rate 22 20 Blood Gas Modality MASK - BIPAP MASK - BIPAP FiO2 40.0 30.0 Blood Gas IPAP/EPAP Ratio 10/01 14/06 Blood Gas Critical Value Read Back BILL GARCIA RN Blood Gas Notified Whom JULIET PALUMBO Blood Gas Notified Time 07/25/2017 5:51:00 PM 07/25/2017 9:06:41 PM Blood Gas Pressure Support 10 Test 07/25/17 21:57 07/25/17 23:00 07/26/17 01:16 07/26/17 05:29 Bedside Glucose 162 197 Blood Gas Specimen Source Blood arterial Arterial Blood Date Drawn 07/25/2017 11:15:29 PM Arterial Blood pH (Temp corrected) 7.304 L Arterial Blood pCO2 (Temp correct) 48.6 H Arterial Blood pO2 (Temp corrected) 101.4 H Arterial Blood HCO3 23.6 Arterial Blood Base Excess -3.1 L Arterial Blood Oxygen Saturation 97.9 Sanjeev Test ACCEPTAB Arterial Blood Gas Puncture Site Left Radial Arterial Blood Carboxyhemoglobin 0.4 Arterial Blood Methemoglobin 0.5 Blood Gas A-a O2 Differential 200.4 H Oxyhemoglobin Percent 97.0 Total Hemoglobin 13.3 Blood Gas Temperature 37.0 Blood Gas Respiration Rate 20.0 Blood Gas Actual Respiration Rate 20 Blood Gas Modality VENT - AC FiO2 50.0 Blood Gas Tidal Volume 500.0 Blood Gas Low PEEP Setting 5.0 Blood Gas Inspiratory Pressure 26.0 Blood Gas Critical Value Read Back Kerrie BAI R.N Blood Gas Notified Whom EDNA Blood Gas Notified Time 07/25/2017 11:20:27 PM Lab Scanned Report BLOOD TRANSFUSION Test 07/26/17 05:30 07/26/17 06:27 07/26/17 07:00 07/26/17 08:44 White Blood Count 17.5 #H Red Blood Count 3.30 L Hemoglobin 11.3 L Hematocrit 32.0 L Mean Corpuscular Volume 97.0 Mean Corpuscular Hemoglobin 34.2 H Mean Corpuscular Hemoglobin Concent 35.3 Red Cell Distribution Width 15.8 H Platelet Count 23 #*L Mean Platelet Volume 12.6 H Neutrophils % Segmented Neutrophils % (Manual) 70 Band Neutrophils % (Manual) 17 H Lymphocytes % Lymphocytes % (Manual) 5 L Monocytes % Monocytes % (Manual) 6 Eosinophils % Eosinophils % (Manual) 2 Basophils % Nucleated Red Blood Cells % 0.0 Neutrophils # Neutrophils # (Manual) 12.8 H Band Neutrophils # 2.9 H Absolute Lymphocytes (Manual) 0.8 Lymphocytes # Monocytes # Absolute Monocytes (Manual) 1.0 H Eosinophils # Basophils # Nucleated Red Blood Cells # Platelet Estimate SIG DECREASED Polychromasia 1+ Poikilocytosis 1+ Anisocytosis 3+ Macrocytosis 3+ Spherocytes 1+ Sodium Level 138 Potassium Level 3.2 L Chloride Level 107 Carbon Dioxide Level 25 Anion Gap 9 # Blood Urea Nitrogen 73 H Creatinine 2.22 H Glucose Level 159 Calcium Level 7.5 L Phosphorus Level 3.3 Magnesium Level 2.4 Total Bilirubin 0.5 Direct Bilirubin 0.20 Indirect Bilirubin 0.3 Aspartate Amino Transf (AST/SGOT) 27 Alanine Aminotransferase (ALT/SGPT) 33 Alkaline Phosphatase 277 H Total Protein 4.8 L Albumin 2.1 L Globulin 2.70 Albumin/Globulin Ratio 0.77 Bedside Glucose 164 149 Blood Gas Specimen Source Blood arterial Arterial Blood Date Drawn 07/26/2017 7:50:37 AM Arterial Blood pH (Temp corrected) 7.378 Arterial Blood pCO2 (Temp correct) 42.1 Arterial Blood pO2 (Temp corrected) 88.4 Arterial Blood HCO3 24.2 Arterial Blood Base Excess -0.9 Arterial Blood Oxygen Saturation 97.1 Sanjeev Test ACCEPTAB Arterial Blood Gas Puncture Site Right Radial Arterial Blood Carboxyhemoglobin 0.4 Arterial Blood Methemoglobin 0.4 Blood Gas A-a O2 Differential 184.6 H Oxyhemoglobin Percent 96.3 Total Hemoglobin 12.4 Blood Gas Temperature 37.0 Blood Gas Respiration Rate 20.0 Blood Gas Actual Respiration Rate 20 Blood Gas Modality VENT - AC FiO2 45.0 Blood Gas Tidal Volume 500.0 Blood Gas Low PEEP Setting 2.0 Blood Gas IPAP/EPAP Ratio 12/5 Blood Gas Critical Value Read Back E BILL HUANG Blood Gas Notified Whom JLD Blood Gas Notified Time 07/26/2017 8:22:17 AM Medications Medications Current Medications Morphine Sulfate (morphine) 2 mg Q4H PRN IV back pain Last administered on 07/24 20:46; Admin Dose 2 MG; Start 07/24/17 at 17:30 Ondansetron HCl (Zofran Inj) 4 mg Q6H PRN IV NAUSEA AND/OR VOMITING; Start at 19:00 Morphine Sulfate 4 mg 4 mg Q4H PRN IV PAIN LEVEL 7-10; Start 07/24/17 at 19:00 Cefepime HCl 50 ml @ 100 mls/hr Q24H IVPB Last administered on 07/26/17 10:55 ; Admin Dose 100 MLS/HR; Start 07/25/17 at 10:00 Fluconazole (Diflucan 200 Mg/ NS (Pmx)) 100 ml @ 100 mls/hr Q24H IVPB Last administered on 07/26/17 10:55; Admin Dose 100 MLS/HR; Start 07/25/17 at 11:00 Diagnostic Test (Pha) (Accu-Chek) 1 ea 02 XX ; Start 07/26/17 at 02:00 Insulin Aspart (Novolog Insulin Pen) NOVOLOG *MILD* ALGORI... Q4 SC Last administered on 07/26/17 08:46; Admin Dose 1 UNIT; Start 07/25/17 at 13:00 Miscellaneous Information 1 ea NOTE XX ; Start 07/25/17 at 10:30 Glucose (Glutose) 15 gm Q15M PRN PO DECREASED GLUCOSE; Start 07/25/17 at 10:30 Glucose (Glutose) 22.5 gm Q15M PRN PO DECREASED GLUCOSE; Start 07/25/17 at 10: 30 Dextrose (D50w Syringe) 25 ml Q15M PRN IV DECREASED GLUCOSE; Start 07/25/17 at 10:30 Dextrose (D50w Syringe) 50 ml Q15M PRN IV DECREASED GLUCOSE; Start 07/25/17 at 10:30 Glucagon (Glucagen) 1 mg Q15M PRN IM DECREASED GLUCOSE; Start 07/25/17 at 10:30 Glucose (Glutose) 15 gm Q15M PRN BUCCAL DECREASED GLUCOSE; Start 07/25/17 at 10 :30 Nystatin 1 applic 1 applic BID TOP Last administered on 07/26/17 08:33; Admin Dose 1 APPLIC; Start 07/25/17 at 13:00 Norepinephrine/ Dextrose (Levophed/D5W) 500 ml @ 0 mls/hr TITRATE IV Last administered on 07/26/17 06:23; Admin Dose 41.25 MLS/HR; Start 07/25/17 at 17: 30 IV Flush 10 ml 10 ml PRN PRN IV IV PROTOCOL; Start 07/25/17 at 17:30 Propofol 100 ml @ 3.327 mls/ hr Q12H IV Last administered on 07/26/17 08:42; Admin Dose 9.969 MLS/HR; Start 07/25/17 at 22:00 Midazolam HCl 50 ml @ 1 mls/hr TITRATE IV ; Start 07/26/17 at 10:30 Fentanyl (Sublimaze) 100 ml @ 2.5 mls/hr TITRATE IV Last administered on 10:43; Admin Dose 5 MLS/HR; Start 07/26/17 at 10:30 Potassium Chloride 40 meq 40 meq ONCE ONCE NGT ; Start 07/26/17 at 12:30; Stop 07/26/17 at 12:31 Potassium Chloride/Sodium Chloride (1/2 NS + KCl 20 Meq) 1,000 ml @ 75 mls/hr [id number] IV ; Start 07/26/17 at 13:00 GRACE GRANDE MD Jul 26, 2017 12:17
[2017-07-26] MEDS: 1/2 NS + KCL 20 MEQ 1,000 ML IV SCH (12:26)
[2017-07-26] MEDS ORDERED: LEVOFLOXACIN 500MG/D5W (PMX) 100 ML IVPB SCH (12:30)
[2017-07-26] MEDS ORDERED: POTASSIUM CHLORIDE 20 MEQ POWDER FOR ORAL SOLN NGT ONE (12:30)
[2017-07-26] MEDS: VASOPRESSIN 60 UNIT in DEXTROSE 5% 57 ML IV SCH (13:12)
--- NOTE | 2017-07-26 13:36 | PN ---
Date/Time of Note Date/Time of Note DATE: 07/26/17 TIME: 13:31 Assessment/Plan VTE Prophylaxis VTE Prophylaxis Intervention: anti-embolic stocking Lines/Catheters IV Catheter Type (from Nrsg): PICC Line Urinary Cath still in place: Yes Subjective 24 Hr Interval Summary Free Text/Dictation 71 yr old woman came in hypotensive, acute renal ailure, acute severe back pain. shortly after admit became unresponsive and transferred to icu. stillo hypotensive on two pressors, sedated, intubated. arf, better with fluid replacement 3. thrombocytopenia, etiol not clear tho has been septic 4.ecoli bacteremia, sens to levo severly ill lady, to continue pressure support and current measddures. k replkacement under way. Subjective hx not possible: pt non-verbal, pt critical status Exam/Review of Systems Vital Signs Vitals Vital Signs Date Time Temp Pulse Resp B/P Pulse Ox O2 Delivery O2 Flow Rate FiO2 07/26/17 12:30 86 20 76/42 99 Mechanical Ventilator 07/26/17 12:00 99.0 07/26/17 11:55 45 07/25/17 16:15 5.0 Intake and Output 07/25/17 07/25/17 07/26/17 15:00 23:00 07:00 Intake Total 1249.30 ml 1631.577 ml 1375.850 ml Output Total 410 ml 385 ml 280 ml Balance 839.30 ml 1246.577 ml 1095.850 ml Results Result Diagram: 07/26/17 0530 07/26/17 0530 Results 24 hrs Laboratory Tests Test 07/25/17 17:22 07/25/17 17:34 07/25/17 21:00 07/25/17 21:57 Bedside Glucose 200 162 Blood Gas Specimen Source Blood arterial Blood arterial Arterial Blood Date Drawn 07/25/2017 5:32:00 PM 07/25/2017 8:50:48 PM Arterial Blood pH (Temp corrected) 7.262 *L 7.207 *L Arterial Blood pCO2 (Temp correct) 51.6 H 63.4 H Arterial Blood pO2 (Temp corrected) 97.0 83.6 Arterial Blood HCO3 22.7 24.6 Arterial Blood Base Excess -4.7 L -4.5 L Arterial Blood Oxygen Saturation 97.4 96.2 Sanjeev Test ACCEPTAB ACCEPTAB Arterial Blood Gas Puncture Site Right Radial Left Radial Arterial Blood Carboxyhemoglobin 0.4 0.7 Arterial Blood Methemoglobin 0.5 0.5 Blood Gas A-a O2 Differential 128.9 H 55.8 H Oxyhemoglobin Percent 96.5 95.0 Total Hemoglobin 13.7 14.1 Blood Gas Temperature 37.0 37.0 Blood Gas Respiration Rate 16.0 20.0 Blood Gas Actual Respiration Rate 22 20 Blood Gas Modality MASK - BIPAP MASK - BIPAP FiO2 40.0 30.0 Blood Gas IPAP/EPAP Ratio 10/01 14/06 Blood Gas Critical Value Read Back Tico HUANG RN JCHOU RN Blood Gas Notified Whom JULIET PALUMBO Blood Gas Notified Time 07/25/2017 5:51:00 PM 07/25/2017 9:06:41 PM Blood Gas Pressure Support 10 Test 07/25/17 23:00 07/26/17 01:16 07/26/17 05:29 07/26/17 05:30 Blood Gas Specimen Source Blood arterial Arterial Blood Date Drawn 07/25/2017 11:15:29 PM Arterial Blood pH (Temp corrected) 7.304 L Arterial Blood pCO2 (Temp correct) 48.6 H Arterial Blood pO2 (Temp corrected) 101.4 H Arterial Blood HCO3 23.6 Arterial Blood Base Excess -3.1 L Arterial Blood Oxygen Saturation 97.9 Sanjeev Test ACCEPTAB Arterial Blood Gas Puncture Site Left Radial Arterial Blood Carboxyhemoglobin 0.4 Arterial Blood Methemoglobin 0.5 Blood Gas A-a O2 Differential 200.4 H Oxyhemoglobin Percent 97.0 Total Hemoglobin 13.3 Blood Gas Temperature 37.0 Blood Gas Respiration Rate 20.0 Blood Gas Actual Respiration Rate 20 Blood Gas Modality VENT - AC FiO2 50.0 Blood Gas Tidal Volume 500.0 Blood Gas Low PEEP Setting 5.0 Blood Gas Inspiratory Pressure 26.0 Blood Gas Critical Value Read Back Kerrie BAI R.N Blood Gas Notified Whom EDNA Blood Gas Notified Time 07/25/2017 11:20:27 PM Bedside Glucose 197 Lab Scanned Report BLOOD TRANSFUSION White Blood Count 17.5 #H Red Blood Count 3.30 L Hemoglobin 11.3 L Hematocrit 32.0 L Mean Corpuscular Volume 97.0 Mean Corpuscular Hemoglobin 34.2 H Mean Corpuscular Hemoglobin Concent 35.3 Red Cell Distribution Width 15.8 H Platelet Count 23 #*L Mean Platelet Volume 12.6 H Neutrophils % Segmented Neutrophils % (Manual) 70 Band Neutrophils % (Manual) 17 H Lymphocytes % Lymphocytes % (Manual) 5 L Monocytes % Monocytes % (Manual) 6 Eosinophils % Eosinophils % (Manual) 2 Basophils % Nucleated Red Blood Cells % 0.0 Neutrophils # Neutrophils # (Manual) 12.8 H Band Neutrophils # 2.9 H Absolute Lymphocytes (Manual) 0.8 Lymphocytes # Monocytes # Absolute Monocytes (Manual) 1.0 H Eosinophils # Basophils # Nucleated Red Blood Cells # Platelet Estimate SIG DECREASED Polychromasia 1+ Poikilocytosis 1+ Anisocytosis 3+ Macrocytosis 3+ Spherocytes 1+ Sodium Level 138 Potassium Level 3.2 L Chloride Level 107 Carbon Dioxide Level 25 Anion Gap 9 # Blood Urea Nitrogen 73 H Creatinine 2.22 H Glucose Level 159 Calcium Level 7.5 L Phosphorus Level 3.3 Magnesium Level 2.4 Total Bilirubin 0.5 Direct Bilirubin 0.20 Indirect Bilirubin 0.3 Aspartate Amino Transf (AST/SGOT) 27 Alanine Aminotransferase (ALT/SGPT) 33 Alkaline Phosphatase 277 H Total Protein 4.8 L Albumin 2.1 L Globulin 2.70 Albumin/Globulin Ratio 0.77 Test 07/26/17 06:27 07/26/17 07:00 07/26/17 08:44 07/26/17 12:24 Bedside Glucose 164 149 123 Blood Gas Specimen Source Blood arterial Arterial Blood Date Drawn 07/26/2017 7:50:37 AM Arterial Blood pH (Temp corrected) 7.378 Arterial Blood pCO2 (Temp correct) 42.1 Arterial Blood pO2 (Temp corrected) 88.4 Arterial Blood HCO3 24.2 Arterial Blood Base Excess -0.9 Arterial Blood Oxygen Saturation 97.1 Sanjeev Test ACCEPTAB Arterial Blood Gas Puncture Site Right Radial Arterial Blood Carboxyhemoglobin 0.4 Arterial Blood Methemoglobin 0.4 Blood Gas A-a O2 Differential 184.6 H Oxyhemoglobin Percent 96.3 Total Hemoglobin 12.4 Blood Gas Temperature 37.0 Blood Gas Respiration Rate 20.0 Blood Gas Actual Respiration Rate 20 Blood Gas Modality VENT - AC FiO2 45.0 Blood Gas Tidal Volume 500.0 Blood Gas Low PEEP Setting 2.0 Blood Gas IPAP/EPAP Ratio 12/5 Blood Gas Critical Value Read Back E BILL HUANG Blood Gas Notified Whom NATHALIE Blood Gas Notified Time 07/26/2017 8:22:17 AM Medications Medications Current Medications Morphine Sulfate (morphine) 2 mg Q4H PRN IV back pain Last administered on 07/24 20:46; Admin Dose 2 MG; Start 07/24/17 at 17:30 Ondansetron HCl (Zofran Inj) 4 mg Q6H PRN IV NAUSEA AND/OR VOMITING; Start at 19:00 Morphine Sulfate 4 mg 4 mg Q4H PRN IV PAIN LEVEL 7-10; Start 07/24/17 at 19:00 Cefepime HCl 50 ml @ 100 mls/hr Q24H IVPB Last administered on 07/26/17 10:55 ; Admin Dose 100 MLS/HR; Start 07/25/17 at 10:00 Fluconazole (Diflucan 200 Mg/ NS (Pmx)) 100 ml @ 100 mls/hr Q24H IVPB Last administered on 07/26/17 10:55; Admin Dose 100 MLS/HR; Start 07/25/17 at 11:00 Diagnostic Test (Pha) (Accu-Chek) 1 ea 02 XX ; Start 07/26/17 at 02:00 Insulin Aspart (Novolog Insulin Pen) NOVOLOG *MILD* ALGORI... Q4 SC Last administered on 07/26/17 08:46; Admin Dose 1 UNIT; Start 07/25/17 at 13:00 Miscellaneous Information 1 ea NOTE XX ; Start 07/25/17 at 10:30 Glucose (Glutose) 15 gm Q15M PRN PO DECREASED GLUCOSE; Start 07/25/17 at 10:30 Glucose (Glutose) 22.5 gm Q15M PRN PO DECREASED GLUCOSE; Start 07/25/17 at 10: 30 Dextrose (D50w Syringe) 25 ml Q15M PRN IV DECREASED GLUCOSE; Start 07/25/17 at 10:30 Dextrose (D50w Syringe) 50 ml Q15M PRN IV DECREASED GLUCOSE; Start 07/25/17 at 10:30 Glucagon (Glucagen) 1 mg Q15M PRN IM DECREASED GLUCOSE; Start 07/25/17 at 10:30 Glucose (Glutose) 15 gm Q15M PRN BUCCAL DECREASED GLUCOSE; Start 07/25/17 at 10 :30 Nystatin 1 applic 1 applic BID TOP Last administered on 07/26/17 08:33; Admin Dose 1 APPLIC; Start 07/25/17 at 13:00 Norepinephrine/ Dextrose (Levophed/D5W) 500 ml @ 0 mls/hr TITRATE IV Last administered on 07/26/17 06:23; Admin Dose 41.25 MLS/HR; Start 07/25/17 at 17: 30 IV Flush 10 ml 10 ml PRN PRN IV IV PROTOCOL; Start 07/25/17 at 17:30 Propofol 100 ml @ 3.327 mls/ hr Q12H IV Last administered on 07/26/17 08:42; Admin Dose 9.969 MLS/HR; Start 07/25/17 at 22:00 Midazolam HCl 50 ml @ 1 mls/hr TITRATE IV Last administered on 07/26/17 12:08 ; Admin Dose 5 MLS/HR; Start 07/26/17 at 10:30 Fentanyl 100 ml @ 2.5 mls/hr TITRATE IV Last administered on 07/26/17 10:43; Admin Dose 5 MLS/HR; Start 07/26/17 at 10:30 Potassium Chloride/Sodium Chloride 1,000 ml @ 75 mls/hr [id number] IV Last administered on 07/26/17 12:26; Admin Dose 75 MLS/HR; Start 07/26/17 at 13:00 Levofloxacin/ Dextrose 100 ml @ 100 mls/hr Q24H IVPB Last administered on 07/26 13:22; Admin Dose 100 MLS/HR; Start 07/26/17 at 12:30; Stop 07/26/17 at 22 :22 Levofloxacin/ Dextrose 50 ml @ 50 mls/hr Q24H IVPB ; Start 07/27/17 at 12:30 Vasopressin/ Dextrose (Vasostrict/D5W) 60 ml @ 1.2 mls/hr Q12H IV Last administered on 07/26/17 13:12; Admin Dose 1.2 MLS/HR; Start 07/26/17 at 13:00 PIPER SANTANA MD Jul 26, 2017 13:36
[2017-07-26] MEDS: EPINEPHrine 4 MG in SOD CHLORIDE 0.9% 246 ML IV SCH ×2 (14:36→23:00)
[2017-07-26 19:08] LABS: CALCIUM 7.6 mg/dl (8.4-10.2); CREATININE 2.08 mg/dl (0.44-1.00); POTASSIUM 3.8 mmol/L (3.5-5.1)
[2017-07-27] VITALS (104 sets, daily range): BP systolic 88–121; BP diastolic 39–78; PULSE 94–110; RESP 18–32
[2017-07-27] MEDS: VASOPRESSIN 60 UNIT in DEXTROSE 5% 57 ML IV SCH ×3 (01:00→16:24)
[2017-07-27] MEDS: 1/2 NS + KCL 20 MEQ 1,000 ML IV SCH ×2 (01:25→16:18)
[2017-07-27] MEDS: INSULIN ASPART [NOVOLOG] 3 ML PEN SC SCH ×6 (01:44→21:00)
[2017-07-27] MEDS: ACCU-CHEK XX SCH (01:52)
[2017-07-27] MEDS: FENTAnyl (DRIP) 1000 mcg/100mL 100 ML IV SCH ×2 (04:16→18:18)
[2017-07-27] MEDS: MIDAZOLAM (DRIP) 50 mg/50 mL 50 ML IV SCH ×2 (04:16→14:14)
[2017-07-27 05:18] LABS: ABNORMAL IP MESSAGE 1; BASOPHIL # 0.1 10^3/ul (0.0-0.1); BASOPHILS % 0.5 % (0.0-2.0); EOSINOPHILS # 0.3 10^3/ul (0.0-0.5); EOSINOPHILS % 2.1 % (0.0-7.0); HEMATOCRIT 35.8 % (37.0-47.0); HEMOGLOBIN 12.6 g/dl (12.0-16.0); LYMPHOCYTES # 1.4 10^3/ul (0.8-2.9); LYMPHOCYTES % 9.2 % (15.0-51.0); MEAN CORPUSCULAR HEMOGLOBIN 34.7 pg (29.0-33.0); MEAN CORPUSCULAR HGB CONC 35.2 g/dl (32.0-37.0); MEAN CORPUSCULAR VOLUME 98.6 fl (82.0-101.0); MEAN PLATELET VOLUME 11.3 fl (7.4-10.4); MONOCYTE # 1.3 10^3/ul (0.3-0.9); MONOCYTES % 8.4 % (0.0-11.0); NEUTROPHIL # 12.2 10^3/ul (1.6-7.5); NEUTROPHILS % 78.5 % (39.0-77.0); RED BLOOD COUNT 3.63 10^6/ul (4.20-5.40); RED CELL DISTRIBUTION WIDTH 16.2 % (11.5-14.5); WHITE BLOOD COUNT 15.5 10^3/ul (4.8-10.8)
[2017-07-27 05:48] LABS: ALBUMIN 2.1 g/dl (3.3-4.9); ALBUMIN/GLOBULIN RATIO 0.67; BILIRUBIN,DIRECT 1.1 mg/dl (0.00-0.20); BILIRUBIN,INDIRECT 0.4 mg/dl (0-1.1); BILIRUBIN,TOTAL 1.5 mg/dl (0.2-1.3); CALCIUM 7.9 mg/dl (8.4-10.2); MAGNESIUM 2.3 mg/dl (1.7-2.5); PHOSPHORUS 3.5 mg/dl (2.5-4.9); POTASSIUM 3.9 mmol/L (3.5-5.1); TOTAL PROTEIN 5.2 g/dl (6.1-8.1)
[2017-07-27 05:54] LABS: PLATELET COUNT 25 10^3/UL (140-415); POSITIVE DIFF @See below
[2017-07-27] MEDS: EPINEPHrine 4 MG in SOD CHLORIDE 0.9% 246 ML IV SCH ×2 (06:13→13:37)
[2017-07-27] MEDS: BALSAM PERU/CASTOR OIL 60 GM TUBE TOP SCH ×2 (08:16→20:28)
[2017-07-27] MEDS: NYSTATIN 30 GM POWDER BTL TOP SCH ×2 (08:16→20:28)
[2017-07-27 08:59] LABS: AADO2 Arterial 246.5 mmHg (7.0-24.0); Allen Test ACCEPTAB; Arterial Base Excess -3.2 mmol/L (-3.0-3); Arterial COHb 0.7 % (0.0-3.0); Arterial Fraction of Oxyhgb 90.1 % (93.0-99.0); Arterial HCO3 23.1 mmol/L (22.0-26.0); Arterial MetHb 0.6 % (0.0-1.5); Arterial Total Hemglobin 12.7 g/dl (12.0-18.0); MODE VENT - AC
--- NOTE | 2017-07-27 09:23 | PN ---
Date/Time of Note Date/Time of Note DATE: 07/27/17 TIME: 09:17 Assessment/Plan VTE Prophylaxis VTE Prophylaxis Intervention: contraindicated (Thrombocytopenia) Lines/Catheters [facility] Peripheral IV Central line still needed: Yes Urinary Cath still in place: Yes Reason Cath still needed: urinary retention Assessment/Plan Problems: (1) Cholelithiasis Status: Chronic Comment: Found on incidental screening and incidental finding no indication for intervention at this time Qualifiers: Cholelithiasis location: gallbladder Cholecystitis presence: without cholecystitis Biliary obstruction: without biliary obstruction Qualified Code : K80.20 - Calculus of gallbladder without cholecystitis without obstruction (2) Osteoporosis Status: Chronic Comment: Noted. This can be worked up and treated as an outpatient Qualifiers: Osteoporosis type: age-related Presence of current pathological fracture: without current pathological fracture Qualified Code: M81.0 - Age-related osteoporosis without current pathological fracture (3) Hypotension Status: Acute Comment: Shock due to sepsis with E. coli bacteremia. She is on 3 pressors for support. She is actually holding steady and starting to make urine. Qualifiers: Hypotension type: unspecified hypotension type Qualified Code: I95.9 - Hypotension, unspecified hypotension type (4) Acute renal failure (ARF) Status: Acute Comment: Creatinine is come from 3 down to 2 her BUN is still markedly elevated indicating prerenal azotemia due to the ARDS and septic shock. Continue careful observation support. Please note he cannot give her fluid bolus because of just going to the lungs and interfere with that aspect of her care. Given her stability will continue to observe and let her body heal Qualifiers: Acute renal failure type: with acute renal cortical necrosis Qualified Code : N17.1 - Acute renal failure with acute cortical necrosis (5) Thrombocytopenia Status: Acute Comment: Secondary to septic shock. Please note given her history of alcohol there may be a felt feature here as well although I doubt that that is a major issue (6) Septicemia due to Gram negative organism Status: Acute Comment: She is in septic shock still although turning around. She is on antibiotics appropriate based on the cultures. (7) Altered consciousness Status: Acute Comment: Right now she is sedated continue full supportive care. She is extremely critically ill and this is been discussed with the family today Subjective 24 Hr Interval Summary Free Text/Dictation Patient remains sedated on a Versed drip with multiple pressor support nonresponsive and intubated. Subjective hx not possible: pt non-verbal, pt critical status Exam/Review of Systems Vital Signs Vitals Vital Signs Date Time Temp Pulse Resp B/P Pulse Ox O2 Delivery O2 Flow Rate FiO2 07/27/17 08:00 50 07/27/17 07:45 94 25 106/40 91 Mechanical Ventilator 07/27/17 07:30 99.9 07/25/17 16:15 5.0 Intake and Output 07/26/17 07/26/17 07/27/17 15:00 23:00 07:00 Intake Total 1522.52 ml 1179.40 ml 1429.70 ml Output Total 180 ml 170 ml 440 ml Balance 1342.52 ml 1009.40 ml 989.70 ml Exam Constitutional: non-verbal ENMT: intubated Cardiovascular: nl pulses, regular rate and rhythm Gastrointestinal: nl liver, spleen, non-tender, soft Results Result Diagram: 07/27/17 0425 07/27/17 0425 Results 24 hrs Laboratory Tests Test 07/26/17 12:24 07/26/17 16:24 07/26/17 18:35 07/26/17 20:27 Bedside Glucose 123 127 144 Sodium Level 136 Potassium Level 3.8 Chloride Level 104 Carbon Dioxide Level 25 Anion Gap 11 Blood Urea Nitrogen 74 H Creatinine 2.08 H Glucose Level 154 Calcium Level 7.6 L Test 07/27/17 01:41 07/27/17 04:25 07/27/17 05:26 07/27/17 08:18 Bedside Glucose 153 152 White Blood Count 15.5 H Red Blood Count 3.63 L Hemoglobin 12.6 Hematocrit 35.8 L Mean Corpuscular Volume 98.6 Mean Corpuscular Hemoglobin 34.7 H Mean Corpuscular Hemoglobin Concent 35.2 Red Cell Distribution Width 16.2 H Platelet Count 25 *L Mean Platelet Volume 11.3 H Neutrophils % 78.5 H Lymphocytes % 9.2 L Monocytes % 8.4 Eosinophils % 2.1 Basophils % 0.5 Nucleated Red Blood Cells % 0.0 Neutrophils # 12.2 H Lymphocytes # 1.4 Monocytes # 1.3 H Eosinophils # 0.3 Basophils # 0.1 Nucleated Red Blood Cells # 0.0 Sodium Level 136 Potassium Level 3.9 Chloride Level 105 Carbon Dioxide Level 24 Anion Gap 11 Blood Urea Nitrogen 71 H Creatinine 2.00 H Glucose Level 151 Calcium Level 7.9 L Phosphorus Level 3.5 Magnesium Level 2.3 Total Bilirubin 1.5 H Direct Bilirubin 1.10 #H Indirect Bilirubin 0.4 Aspartate Amino Transf (AST/SGOT) 40 Alanine Aminotransferase (ALT/SGPT) 28 Alkaline Phosphatase 323 H Total Protein 5.2 L Albumin 2.1 L Globulin 3.10 Albumin/Globulin Ratio 0.67 Blood Gas Specimen Source Blood arterial Arterial Blood Date Drawn 07/27/2017 8:45:24 AM Arterial Blood pH (Temp corrected) 7.314 L Arterial Blood pCO2 (Temp correct) 46.5 H Arterial Blood pO2 (Temp corrected) 57.7 L Arterial Blood HCO3 23.1 Arterial Blood Base Excess -3.2 L Arterial Blood Oxygen Saturation 91.3 L Sanjeev Test ACCEPTAB Arterial Blood Gas Puncture Site Right Radial Arterial Blood Carboxyhemoglobin 0.7 Arterial Blood Methemoglobin 0.6 Blood Gas A-a O2 Differential 246.5 H Oxyhemoglobin Percent 90.1 L Total Hemoglobin 12.7 Blood Gas Temperature 37.0 Blood Gas Respiration Rate 20.0 Blood Gas Actual Respiration Rate 20 Blood Gas Modality VENT - AC FiO2 50.0 Blood Gas Tidal Volume 500.0 Blood Gas Low PEEP Setting 5.0 Blood Gas Notified Whom Peggy DAVIS Blood Gas Notified Time 07/27/2017 8:58:43 AM Test 07/27/17 08:24 Bedside Glucose 163 Medications Medications Current Medications Morphine Sulfate (morphine) 2 mg Q4H PRN IV back pain Last administered on 07/24 20:46; Admin Dose 2 MG; Start 07/24/17 at 17:30 Ondansetron HCl (Zofran Inj) 4 mg Q6H PRN IV NAUSEA AND/OR VOMITING; Start at 19:00 Morphine Sulfate 4 mg 4 mg Q4H PRN IV PAIN LEVEL 7-10; Start 07/24/17 at 19:00 Cefepime HCl 50 ml @ 100 mls/hr Q24H IVPB Last administered on 07/26/17 10:55 ; Admin Dose 100 MLS/HR; Start 07/25/17 at 10:00 Fluconazole (Diflucan 200 Mg/ NS (Pmx)) 100 ml @ 100 mls/hr Q24H IVPB Last administered on 07/26/17 10:55; Admin Dose 100 MLS/HR; Start 07/25/17 at 11:00 Diagnostic Test (Pha) (Accu-Chek) 1 ea 02 XX ; Start 07/26/17 at 02:00 Insulin Aspart (Novolog Insulin Pen) NOVOLOG *MILD* ALGORI... Q4 SC Last administered on 07/27/17 08:26; Admin Dose 1 UNIT; Start 07/25/17 at 13:00 Miscellaneous Information 1 ea NOTE XX ; Start 07/25/17 at 10:30 Glucose (Glutose) 15 gm Q15M PRN PO DECREASED GLUCOSE; Start 07/25/17 at 10:30 Glucose (Glutose) 22.5 gm Q15M PRN PO DECREASED GLUCOSE; Start 07/25/17 at 10: 30 Dextrose (D50w Syringe) 25 ml Q15M PRN IV DECREASED GLUCOSE; Start 07/25/17 at 10:30 Dextrose (D50w Syringe) 50 ml Q15M PRN IV DECREASED GLUCOSE; Start 07/25/17 at 10:30 Glucagon (Glucagen) 1 mg Q15M PRN IM DECREASED GLUCOSE; Start 07/25/17 at 10:30 Glucose (Glutose) 15 gm Q15M PRN BUCCAL DECREASED GLUCOSE; Start 07/25/17 at 10 :30 Nystatin 1 applic 1 applic BID TOP Last administered on 07/27/17 08:16; Admin Dose 1 APPLIC; Start 07/25/17 at 13:00 Norepinephrine/ Dextrose (Levophed/D5W) 500 ml @ 0 mls/hr TITRATE IV Last administered on 07/27/17 01:52; Admin Dose 56.25 MLS/HR; Start 07/25/17 at 17: 30 IV Flush 10 ml 10 ml PRN PRN IV IV PROTOCOL; Start 07/25/17 at 17:30 Propofol 100 ml @ 3.327 mls/ hr Q12H IV Last administered on 07/26/17 08:42; Admin Dose 9.969 MLS/HR; Start 07/25/17 at 22:00 Midazolam HCl 50 ml @ 1 mls/hr TITRATE IV Last administered on 07/27/17 04:16 ; Admin Dose 5 MLS/HR; Start 07/26/17 at 10:30 Fentanyl 100 ml @ 2.5 mls/hr TITRATE IV Last administered on 07/27/17 04:16; Admin Dose 7.5 MLS/HR; Start 07/26/17 at 10:30 Potassium Chloride/Sodium Chloride 1,000 ml @ 75 mls/hr [id number] IV Last administered on 07/27/17 01:25; Admin Dose 75 MLS/HR; Start 07/26/17 at 13:00 Levofloxacin/ Dextrose 50 ml @ 50 mls/hr Q24H IVPB ; Start 07/27/17 at 12:30 Vasopressin 60 unit/Dextrose 60 ml @ 1.2 mls/hr Q12H IV Last administered on 02:28; Admin Dose 2.4 MLS/HR; Start 07/26/17 at 13:00 Epinephrine/ Sodium Chloride (EPINEPHrine/NS) 250 ml @ 0 mls/hr TITRATE IV Last administered on 07/27/17 06:13; Admin Dose 30 MLS/HR; Start 07/26/17 at 14 :30 Metoclopramide HCl (Reglan) 5 mg Q12 IV ; Start 07/27/17 at 09:30; Stop at 09:29; Status TIANA SPAULDING MD Jul 27, 2017 09:23
[2017-07-27] MEDS: PROPOFOL 100 ML IV SCH ×2 (09:46→21:24)
[2017-07-27] MEDS: CEFEPIME 1GM/50 ML (PMX) 50 ML IVPB SCH (09:46)
[2017-07-27] MEDS: METOCLOPRAMIDE 10 MG INJ IV SCH ×2 (10:25→20:28)
[2017-07-27] MEDS: FLUCONAZOLE 200 MG/NS (PMX) 100 ML IVPB SCH (11:11)
[2017-07-27] MEDS: LEVOFLOXACIN 250MG/D5W (PMX) 50 ML IVPB SCH (12:15)
--- NOTE | 2017-07-27 13:54 | CONS ---
Date/Time of Note Date/Time of Note DATE: 07/27/17 TIME: 13:52 Consult Date/Type/Reason Admit Date/Time Jul 24, 2017 at 11:53 Initial Consult Date 07/25/17 Type of Consultation: Pulmonary Subjective On the vent. No events overnight Objective Vital Signs Date Time Temp Pulse Resp B/P Pulse Ox O2 Delivery O2 Flow Rate FiO2 07/27/17 13:45 96 25 102/51 94 Mechanical Ventilator 07/27/17 13:05 60 07/27/17 12:00 99.7 07/25/17 16:15 5.0 Intake and Output 07/26/17 07/26/17 07/27/17 15:00 23:00 07:00 Intake Total 1522.52 ml 1179.40 ml 1429.70 ml Output Total 180 ml 170 ml 440 ml Balance 1342.52 ml 1009.40 ml 989.70 ml Exam GENERAL: Elderly lady intubated on mechanical ventilation appears comfortable at rest. HEENT: Pupils equal, round, and reactive to light. CARDIAC: S1, S2, 1/6 systolic ejection murmur CHEST: Diminished air entry bilaterally. ABDOMEN: Mildly distended. Bowel sounds present no guarding or rebound EXTREMITIES: No cyanosis, clubbing edema +1 Results/Medications Result Diagram: 07/27/17 0425 07/27/17 0425 Results 24 hrs Laboratory Tests Test 07/26/17 16:24 07/26/17 18:35 07/26/17 20:27 07/27/17 01:41 Bedside Glucose 127 144 153 Sodium Level 136 Potassium Level 3.8 Chloride Level 104 Carbon Dioxide Level 25 Anion Gap 11 Blood Urea Nitrogen 74 H Creatinine 2.08 H Glucose Level 154 Calcium Level 7.6 L Test 07/27/17 04:25 07/27/17 05:26 07/27/17 08:18 07/27/17 08:24 White Blood Count 15.5 H Red Blood Count 3.63 L Hemoglobin 12.6 Hematocrit 35.8 L Mean Corpuscular Volume 98.6 Mean Corpuscular Hemoglobin 34.7 H Mean Corpuscular Hemoglobin Concent 35.2 Red Cell Distribution Width 16.2 H Platelet Count 25 *L Mean Platelet Volume 11.3 H Neutrophils % 78.5 H Lymphocytes % 9.2 L Monocytes % 8.4 Eosinophils % 2.1 Basophils % 0.5 Nucleated Red Blood Cells % 0.0 Neutrophils # 12.2 H Lymphocytes # 1.4 Monocytes # 1.3 H Eosinophils # 0.3 Basophils # 0.1 Nucleated Red Blood Cells # 0.0 Sodium Level 136 Potassium Level 3.9 Chloride Level 105 Carbon Dioxide Level 24 Anion Gap 11 Blood Urea Nitrogen 71 H Creatinine 2.00 H Glucose Level 151 Calcium Level 7.9 L Phosphorus Level 3.5 Magnesium Level 2.3 Total Bilirubin 1.5 H Direct Bilirubin 1.10 #H Indirect Bilirubin 0.4 Aspartate Amino Transf (AST/SGOT) 40 Alanine Aminotransferase (ALT/SGPT) 28 Alkaline Phosphatase 323 H Total Protein 5.2 L Albumin 2.1 L Globulin 3.10 Albumin/Globulin Ratio 0.67 Bedside Glucose 152 163 Blood Gas Specimen Source Blood arterial Arterial Blood Date Drawn 07/27/2017 8:45:24 AM Arterial Blood pH (Temp corrected) 7.314 L Arterial Blood pCO2 (Temp correct) 46.5 H Arterial Blood pO2 (Temp corrected) 57.7 L Arterial Blood HCO3 23.1 Arterial Blood Base Excess -3.2 L Arterial Blood Oxygen Saturation 91.3 L Sanjeev Test ACCEPTAB Arterial Blood Gas Puncture Site Right Radial Arterial Blood Carboxyhemoglobin 0.7 Arterial Blood Methemoglobin 0.6 Blood Gas A-a O2 Differential 246.5 H Oxyhemoglobin Percent 90.1 L Total Hemoglobin 12.7 Blood Gas Temperature 37.0 Blood Gas Respiration Rate 20.0 Blood Gas Actual Respiration Rate 20 Blood Gas Modality VENT - AC FiO2 50.0 Blood Gas Tidal Volume 500.0 Blood Gas Low PEEP Setting 5.0 Blood Gas Notified Whom Peggy DAVIS Blood Gas Notified Time 07/27/2017 8:58:43 AM Test 07/27/17 12:14 Bedside Glucose 126 Medications Current Medications Morphine Sulfate (morphine) 2 mg Q4H PRN IV back pain Last administered on 07/24 20:46; Admin Dose 2 MG; Start 07/24/17 at 17:30 Ondansetron HCl (Zofran Inj) 4 mg Q6H PRN IV NAUSEA AND/OR VOMITING; Start at 19:00 Morphine Sulfate 4 mg 4 mg Q4H PRN IV PAIN LEVEL 7-10; Start 07/24/17 at 19:00 Cefepime HCl 50 ml @ 100 mls/hr Q24H IVPB Last administered on 07/27/17 09:46 ; Admin Dose 100 MLS/HR; Start 07/25/17 at 10:00 Fluconazole (Diflucan 200 Mg/ NS (Pmx)) 100 ml @ 100 mls/hr Q24H IVPB Last administered on 07/27/17 11:11; Admin Dose 100 MLS/HR; Start 07/25/17 at 11:00 Diagnostic Test (Pha) (Accu-Chek) 1 ea 02 XX ; Start 07/26/17 at 02:00 Insulin Aspart (Novolog Insulin Pen) NOVOLOG *MILD* ALGORI... Q4 SC Last administered on 07/27/17 08:26; Admin Dose 1 UNIT; Start 07/25/17 at 13:00 Miscellaneous Information 1 ea NOTE XX ; Start 07/25/17 at 10:30 Glucose (Glutose) 15 gm Q15M PRN PO DECREASED GLUCOSE; Start 07/25/17 at 10:30 Glucose (Glutose) 22.5 gm Q15M PRN PO DECREASED GLUCOSE; Start 07/25/17 at 10: 30 Dextrose (D50w Syringe) 25 ml Q15M PRN IV DECREASED GLUCOSE; Start 07/25/17 at 10:30 Dextrose (D50w Syringe) 50 ml Q15M PRN IV DECREASED GLUCOSE; Start 07/25/17 at 10:30 Glucagon (Glucagen) 1 mg Q15M PRN IM DECREASED GLUCOSE; Start 07/25/17 at 10:30 Glucose (Glutose) 15 gm Q15M PRN BUCCAL DECREASED GLUCOSE; Start 07/25/17 at 10 :30 Nystatin 1 applic 1 applic BID TOP Last administered on 07/27/17 08:16; Admin Dose 1 APPLIC; Start 07/25/17 at 13:00 Norepinephrine/ Dextrose (Levophed/D5W) 500 ml @ 0 mls/hr TITRATE IV Last administered on 07/27/17 10:25; Admin Dose 56.25 MLS/HR; Start 07/25/17 at 17: 30 IV Flush 10 ml 10 ml PRN PRN IV IV PROTOCOL; Start 07/25/17 at 17:30 Propofol 100 ml @ 3.327 mls/ hr Q12H IV Last administered on 07/26/17 08:42; Admin Dose 9.969 MLS/HR; Start 07/25/17 at 22:00 Midazolam HCl 50 ml @ 1 mls/hr TITRATE IV Last administered on 07/27/17 04:16 ; Admin Dose 5 MLS/HR; Start 07/26/17 at 10:30 Fentanyl 100 ml @ 2.5 mls/hr TITRATE IV Last administered on 07/27/17 04:16; Admin Dose 7.5 MLS/HR; Start 07/26/17 at 10:30 Potassium Chloride/Sodium Chloride 1,000 ml @ 75 mls/hr [id number] IV Last administered on 07/27/17 01:25; Admin Dose 75 MLS/HR; Start 07/26/17 at 13:00 Levofloxacin/ Dextrose 50 ml @ 50 mls/hr Q24H IVPB Last administered on 12:15; Admin Dose 50 MLS/HR; Start 07/27/17 at 12:30 Vasopressin 60 unit/Dextrose 60 ml @ 1.2 mls/hr Q12H IV Last administered on 02:28; Admin Dose 2.4 MLS/HR; Start 07/26/17 at 13:00 Epinephrine/ Sodium Chloride (EPINEPHrine/NS) 250 ml @ 0 mls/hr TITRATE IV Last administered on 07/27/17 13:37; Admin Dose 26.25 MLS/HR; Start 07/26/17 at 14:30 Metoclopramide HCl (Reglan) 5 mg Q12 IV Last administered on 07/27/17 10:25; Admin Dose 5 MG; Start 07/27/17 at 09:30; Stop 07/29/17 at 09:29 Assessment/Plan Additional Assessment/Plan IMP: 1. Encephalopathy unclear etiology. Toxic metabolic versus infectious. Consider West Nile virus and differential. Consider lumbar puncture. 2. Hypoxemic and hypercapnic respiratory failure yesterday with difficulty in protecting her airway. Required intubation and mechanical ventilation. 3. Septic shock. Continues vasopressor support. E. coli UTI noted. 4. Thrombocytopenia unclear etiology. Questionable DIC. 5. Renal insufficiency likely ATN injury on top of chronic renal insufficiency. RECS: 1. Start tube feeding 2. Continue broad-spectrum antibiotic coverage, Continue vasopressor support. 3. Consider lumbar puncture if neurological status does not improve in the next few days. 4. Continue mechanical ventilation. 5. Versed and fentanyl 6. Monitor renal function 7. Increase PEEP 8 cm H20 40 min cc time NEEMA CABEZAS MD Jul 27, 2017 13:54
--- NOTE | 2017-07-27 14:04 | CONS ---
Date/Time of Note Date/Time of Note DATE: 07/27/17 TIME: 14:01 Assessment/Plan Assessment/Plan Additional Assessment/Plan 1. ARF on ckd: suspect atn due to hypotension/ sepsis. improving. up better 2 -Encephalopathy unclear etiology. Toxic metabolic versus infectious. Consider West Nile virus and differential. Consider lumbar puncture. 3. Hypoxemic and hypercapnic respiratory failure yesterday with difficulty in protecting her airway. Required intubation and mechanical ventilation.requiring more peep 4. Septic shock. Continues vasopressor support. cont to require 3 pressors. E. coli UTI noted in blood and urine. 5. Thrombocytopenia unclear etiology. Questionable DIC. 6- morbid obesity: no change 7-back pain: unable to asses given current condition Consultation Date/Type/Reason Admit Date/Time Jul 24, 2017 at 11:53 Initial Consult Date 07/25/17 Type of Consultation: Pulmonary Reason for Consultation sedated on vent. on multiple pressors. non responsive Exam/Review of Systems Vital Signs Vitals Vital Signs Date Time Temp Pulse Resp B/P Pulse Ox O2 Delivery O2 Flow Rate FiO2 07/27/17 13:45 96 25 102/51 94 Mechanical Ventilator 07/27/17 13:05 60 07/27/17 12:00 99.7 07/25/17 16:15 5.0 Intake and Output 07/26/17 07/26/17 07/27/17 15:00 23:00 07:00 Intake Total 1522.52 ml 1179.40 ml 1429.70 ml Output Total 180 ml 170 ml 440 ml Balance 1342.52 ml 1009.40 ml 989.70 ml Exam Constitutional: non-verbal (orally intubated), obese Head: normocephalic Neck: non-tender, supple Respiratory: diminished breath sounds Cardiovascular: edema (1+), nl pulses, regular rate and rhythm Gastrointestinal: distended, soft Results Result Diagram: 07/27/17 0425 07/27/17 0425 Results 24 hrs Laboratory Tests Test 07/26/17 16:24 07/26/17 18:35 07/26/17 20:27 07/27/17 01:41 Bedside Glucose 127 144 153 Sodium Level 136 Potassium Level 3.8 Chloride Level 104 Carbon Dioxide Level 25 Anion Gap 11 Blood Urea Nitrogen 74 H Creatinine 2.08 H Glucose Level 154 Calcium Level 7.6 L Test 07/27/17 04:25 07/27/17 05:26 07/27/17 08:18 07/27/17 08:24 White Blood Count 15.5 H Red Blood Count 3.63 L Hemoglobin 12.6 Hematocrit 35.8 L Mean Corpuscular Volume 98.6 Mean Corpuscular Hemoglobin 34.7 H Mean Corpuscular Hemoglobin Concent 35.2 Red Cell Distribution Width 16.2 H Platelet Count 25 *L Mean Platelet Volume 11.3 H Neutrophils % 78.5 H Lymphocytes % 9.2 L Monocytes % 8.4 Eosinophils % 2.1 Basophils % 0.5 Nucleated Red Blood Cells % 0.0 Neutrophils # 12.2 H Lymphocytes # 1.4 Monocytes # 1.3 H Eosinophils # 0.3 Basophils # 0.1 Nucleated Red Blood Cells # 0.0 Sodium Level 136 Potassium Level 3.9 Chloride Level 105 Carbon Dioxide Level 24 Anion Gap 11 Blood Urea Nitrogen 71 H Creatinine 2.00 H Glucose Level 151 Calcium Level 7.9 L Phosphorus Level 3.5 Magnesium Level 2.3 Total Bilirubin 1.5 H Direct Bilirubin 1.10 #H Indirect Bilirubin 0.4 Aspartate Amino Transf (AST/SGOT) 40 Alanine Aminotransferase (ALT/SGPT) 28 Alkaline Phosphatase 323 H Total Protein 5.2 L Albumin 2.1 L Globulin 3.10 Albumin/Globulin Ratio 0.67 Bedside Glucose 152 163 Blood Gas Specimen Source Blood arterial Arterial Blood Date Drawn 07/27/2017 8:45:24 AM Arterial Blood pH (Temp corrected) 7.314 L Arterial Blood pCO2 (Temp correct) 46.5 H Arterial Blood pO2 (Temp corrected) 57.7 L Arterial Blood HCO3 23.1 Arterial Blood Base Excess -3.2 L Arterial Blood Oxygen Saturation 91.3 L Sanjeev Test ACCEPTAB Arterial Blood Gas Puncture Site Right Radial Arterial Blood Carboxyhemoglobin 0.7 Arterial Blood Methemoglobin 0.6 Blood Gas A-a O2 Differential 246.5 H Oxyhemoglobin Percent 90.1 L Total Hemoglobin 12.7 Blood Gas Temperature 37.0 Blood Gas Respiration Rate 20.0 Blood Gas Actual Respiration Rate 20 Blood Gas Modality VENT - AC FiO2 50.0 Blood Gas Tidal Volume 500.0 Blood Gas Low PEEP Setting 5.0 Blood Gas Notified Whom Peggy DAVIS Blood Gas Notified Time 07/27/2017 8:58:43 AM Test 07/27/17 12:14 Bedside Glucose 126 Medications Medications Current Medications Morphine Sulfate (morphine) 2 mg Q4H PRN IV back pain Last administered on 07/24 20:46; Admin Dose 2 MG; Start 07/24/17 at 17:30 Ondansetron HCl (Zofran Inj) 4 mg Q6H PRN IV NAUSEA AND/OR VOMITING; Start at 19:00 Morphine Sulfate 4 mg 4 mg Q4H PRN IV PAIN LEVEL 7-10; Start 07/24/17 at 19:00 Cefepime HCl 50 ml @ 100 mls/hr Q24H IVPB Last administered on 07/27/17 09:46 ; Admin Dose 100 MLS/HR; Start 07/25/17 at 10:00 Fluconazole (Diflucan 200 Mg/ NS (Pmx)) 100 ml @ 100 mls/hr Q24H IVPB Last administered on 07/27/17 11:11; Admin Dose 100 MLS/HR; Start 07/25/17 at 11:00 Diagnostic Test (Pha) (Accu-Chek) 1 ea 02 XX ; Start 07/26/17 at 02:00 Insulin Aspart (Novolog Insulin Pen) NOVOLOG *MILD* ALGORI... Q4 SC Last administered on 07/27/17 08:26; Admin Dose 1 UNIT; Start 07/25/17 at 13:00 Miscellaneous Information 1 ea NOTE XX ; Start 07/25/17 at 10:30 Glucose (Glutose) 15 gm Q15M PRN PO DECREASED GLUCOSE; Start 07/25/17 at 10:30 Glucose (Glutose) 22.5 gm Q15M PRN PO DECREASED GLUCOSE; Start 07/25/17 at 10: 30 Dextrose (D50w Syringe) 25 ml Q15M PRN IV DECREASED GLUCOSE; Start 07/25/17 at 10:30 Dextrose (D50w Syringe) 50 ml Q15M PRN IV DECREASED GLUCOSE; Start 07/25/17 at 10:30 Glucagon (Glucagen) 1 mg Q15M PRN IM DECREASED GLUCOSE; Start 07/25/17 at 10:30 Glucose (Glutose) 15 gm Q15M PRN BUCCAL DECREASED GLUCOSE; Start 07/25/17 at 10 :30 Nystatin 1 applic 1 applic BID TOP Last administered on 07/27/17 08:16; Admin Dose 1 APPLIC; Start 07/25/17 at 13:00 Norepinephrine/ Dextrose (Levophed/D5W) 500 ml @ 0 mls/hr TITRATE IV Last administered on 07/27/17 10:25; Admin Dose 56.25 MLS/HR; Start 07/25/17 at 17: 30 IV Flush 10 ml 10 ml PRN PRN IV IV PROTOCOL; Start 07/25/17 at 17:30 Propofol 100 ml @ 3.327 mls/ hr Q12H IV Last administered on 07/26/17 08:42; Admin Dose 9.969 MLS/HR; Start 07/25/17 at 22:00 Midazolam HCl 50 ml @ 1 mls/hr TITRATE IV Last administered on 07/27/17 04:16 ; Admin Dose 5 MLS/HR; Start 07/26/17 at 10:30 Fentanyl 100 ml @ 2.5 mls/hr TITRATE IV Last administered on 07/27/17 04:16; Admin Dose 7.5 MLS/HR; Start 07/26/17 at 10:30 Potassium Chloride/Sodium Chloride 1,000 ml @ 75 mls/hr [id number] IV Last administered on 07/27/17 01:25; Admin Dose 75 MLS/HR; Start 07/26/17 at 13:00 Levofloxacin/ Dextrose 50 ml @ 50 mls/hr Q24H IVPB Last administered on 12:15; Admin Dose 50 MLS/HR; Start 07/27/17 at 12:30 Vasopressin 60 unit/Dextrose 60 ml @ 1.2 mls/hr Q12H IV Last administered on 02:28; Admin Dose 2.4 MLS/HR; Start 07/26/17 at 13:00 Epinephrine/ Sodium Chloride (EPINEPHrine/NS) 250 ml @ 0 mls/hr TITRATE IV Last administered on 07/27/17 13:37; Admin Dose 26.25 MLS/HR; Start 07/26/17 at 14:30 Metoclopramide HCl (Reglan) 5 mg Q12 IV Last administered on 07/27/17 10:25; Admin Dose 5 MG; Start 07/27/17 at 09:30; Stop 07/29/17 at 09:29 MARY JUAN MD Jul 27, 2017 14:04
[2017-07-27] MEDS: ACETAMINOPHEN 650MG/20.3ML CUP NGT PRN (20:32)
--- NOTE | 2017-07-27 21:30 | HKNOTE ---
DATE OF SERVICE: 07/27/2017 HISTORY OF PRESENT ILLNESS: The patient is a 71-year-old with urosepsis, hypotension, Levophed admitted to the Intensive Care Unit. The patient has a past medical history of bilateral knee surgery, neuropathy, obesity, depression, patient with thrombocytopenia, low platelets, which has had platelet infusion. PHYSICAL EXAMINATION: GENERAL: The patient is sleepy, eyes are closed. Her nurse says she opens her eyes continuously in the morning, was agitated, had Versed. Difficult to examine her. NEUROLOGIC: CRANIAL NERVES: Cranial nerve II: Pupils equal on both sides, reactive to light. Cranial nerves II, IV and : Extraocular muscles intact. Cranial nerve V: Equal sensation to face. Cranial nerve VII: Symmetrical face. Cranial nerve VIII THROUGH XII: Could not assess. Motor exam: Slight movement for painful stimuli. Sensation, Coordination, Gait: Could not assess. HEART: Regular rhythm and rate. LUNGS: Equal breath sounds. ABDOMEN: Soft, nondistended, nontender. ASSESSMENT AND PLAN: 1. The patient is a 71-year-old with underlying acute encephalopathy probably secondary to urosepsis with toxic metabolic encephalopathy with her electroencephalogram showing generalized slowing. 2. Suspect underlying stroke. MRI is pending. When the patient is stable enough to fit on the MRI machine. 3. Thrombocytopenia. The patient had transfusion of platelets. 4. Hypotension probably secondary to septic shock, on Levophed. 5. Underlying urinary tract infection with recent IV antibiotic. 6. Keep the patient on deep venous thrombosis prophylaxis as well as decubitus ulcer prophylaxis. Dictated By: Wili Clark MD /carmelina/shadiac /Document#: [id number]
[2017-07-28] VITALS (101 sets, daily range): BP systolic 77–128; BP diastolic 35–60; PULSE 94–120; RESP 20–29
[2017-07-28] MEDS: INSULIN ASPART [NOVOLOG] 3 ML PEN SC SCH ×6 (01:00→21:00)
[2017-07-28] MEDS: MIDAZOLAM (DRIP) 50 mg/50 mL 50 ML IV SCH ×2 (01:05→17:09)
[2017-07-28] MEDS: ACCU-CHEK XX SCH (01:22)
[2017-07-28] MEDS: EPINEPHrine 4 MG in SOD CHLORIDE 0.9% 246 ML IV SCH ×3 (01:25→15:59)
[2017-07-28 05:07] LABS: AADO2 Arterial 504.5 mmHg (7.0-24.0); Allen Test ACCEPTAB; Arterial Base Excess -6.3 mmol/L (-3.0-3); Arterial COHb 1.8 % (0.0-3.0); Arterial Fraction of Oxyhgb 89.3 % (93.0-99.0); Arterial HCO3 24.2 mmol/L (22.0-26.0); Arterial MetHb 0.5 % (0.0-1.5); Arterial Total Hemglobin 15.2 g/dl (12.0-18.0); MODE VENT - AC
[2017-07-28] MEDS: 1/2 NS + KCL 20 MEQ 1,000 ML IV SCH (05:10)
[2017-07-28] MEDS: VASOPRESSIN 60 UNIT in DEXTROSE 5% 57 ML IV SCH ×2 (05:58→23:14)
[2017-07-28 06:09] LABS: ABNORMAL IP MESSAGE 1; BASOPHIL # 0.1 10^3/ul (0.0-0.1); BASOPHILS % 0.3 % (0.0-2.0); EOSINOPHILS # 0.4 10^3/ul (0.0-0.5); EOSINOPHILS % 1.9 % (0.0-7.0); HEMATOCRIT 35.3 % (37.0-47.0); HEMOGLOBIN 11.6 g/dl (12.0-16.0); LYMPHOCYTES # 1.4 10^3/ul (0.8-2.9); LYMPHOCYTES % 5.9 % (15.0-51.0); MEAN CORPUSCULAR HEMOGLOBIN 33.5 pg (29.0-33.0); MEAN CORPUSCULAR HGB CONC 32.9 g/dl (32.0-37.0); MEAN PLATELET VOLUME 12.5 fl (7.4-10.4); MONOCYTES % 8.4 % (0.0-11.0); NEUTROPHIL # 18.9 10^3/ul (1.6-7.5); NEUTROPHILS % 81.9 % (39.0-77.0); PLATELET COUNT 31 10^3/UL (140-415); RED BLOOD COUNT 3.46 10^6/ul (4.20-5.40); RED CELL DISTRIBUTION WIDTH 16.7 % (11.5-14.5); WHITE BLOOD COUNT 23.1 10^3/ul (4.8-10.8)
[2017-07-28 06:30] LABS: POSITIVE DIFF @See below
[2017-07-28 06:50] LABS: ALBUMIN/GLOBULIN RATIO 0.8; BILIRUBIN,INDIRECT 0.5 mg/dl (0-1.1); BILIRUBIN,TOTAL 2.5 mg/dl (0.2-1.3); CREATININE 1.7 mg/dl (0.44-1.00); TOTAL PROTEIN 4.5 g/dl (6.1-8.1)
[2017-07-28 06:57] LABS: CALCIUM 7.7 mg/dl (8.4-10.2)
--- NOTE | 2017-07-28 07:29 | PN ---
Date/Time of Note Date/Time of Note DATE: 07/28/17 TIME: 07:25 Assessment/Plan VTE Prophylaxis VTE Prophylaxis Intervention: contraindicated (Thrombocytopenia in the setting of sepsis) Lines/Catheters IV [facility]ter Type (from [facility]): Peripheral IV Central line still needed: Yes Urinary Cath still in place: Yes Reason Cath still needed: urinary retention Assessment/Plan Problems: (1) Thrombocytopenia Status: Acute Comment: This is starting to improve. Up to this point in time is been borderline at a level that would cause a certain degree of discomfort with attempting to perform a lumbar puncture. At this time we might consider it but I would actually prefer to see how patient does tomorrow especially given that we are to have on full dose antibiotics and therefore therapeutics might not be changed. (2) Hypotension Status: Acute Comment: Remains on pressor support. Please note the patient has what appears to be ARDS Qualifiers: Hypotension type: unspecified hypotension type Qualified Code: I95.9 - Hypotension, unspecified hypotension type (3) Acute renal failure (ARF) Status: Acute Comment: This is improving. Qualifiers: Acute renal failure type: with acute renal cortical necrosis Qualified Code : N17.1 - Acute renal failure with acute cortical necrosis (4) Septicemia due to Gram negative organism Status: Acute Comment: Curious thing is that the cultures for the urinary E. coli are sensitive to cefazolin and the blood cultures are resistant. This raises the question could there be another source of infection. In the setting of the right using bilirubin and elevated alkaline phosphatase in spite of the abdominal CT scan that only showed gallstones without evidence of active cholecystitis and would at least try and do an abdominal ultrasound. Given the patient's severity of illness transporting the patient around radiology or for MRI scan might be a little bit aggressive today (5) Cholelithiasis Status: Chronic Comment: As noted above will check ultrasound. Qualifiers: Cholelithiasis location: gallbladder Cholecystitis presence: without cholecystitis Biliary obstruction: without biliary obstruction Qualified Code : K80.20 - Calculus of gallbladder without cholecystitis without obstruction (6) UTI (urinary tract infection) Status: Acute Comment: On full antibiotic therapy Qualifiers: Urinary tract infection type: acute cystitis Hematuria presence: without hematuria Qualified Code: N30.00 - Acute cystitis without hematuria Subjective 24 Hr Interval Summary Free Text/Dictation Patient remains intubated on a Versed drip nonresponsive. Subjective hx not possible: pt non-verbal, pt critical status Exam/Review of Systems Vital Signs Vitals Vital Signs Date Time Temp Pulse Resp B/P Pulse Ox O2 Delivery O2 Flow Rate FiO2 07/28/17 06:45 96 22 90/51 98 Mechanical Ventilator 07/28/17 05:42 100 07/28/17 04:00 98.8 07/25/17 16:15 5.0 Intake and Output 07/27/17 07/27/17 07/28/17 15:00 23:00 07:00 Intake Total 1539.30 ml 1314.60 ml 337.30 ml Output Total 550 ml 510 ml 360 ml Balance 989.30 ml 804.60 ml -22.70 ml Exam Constitutional: non-verbal ENMT: intubated Neck: non-tender, supple Respiratory: clear to auscultation, normal air movement Cardiovascular: nl pulses, regular rate and rhythm Results Result Diagram: 07/28/17 0523 07/28/17 0523 Results 24 hrs Laboratory Tests Test 07/27/17 08:18 07/27/17 08:24 07/27/17 12:14 07/27/17 16:07 Blood Gas Specimen Source Blood arterial Arterial Blood Date Drawn 07/27/2017 8:45:24 AM Arterial Blood pH (Temp corrected) 7.314 L Arterial Blood pCO2 (Temp correct) 46.5 H Arterial Blood pO2 (Temp corrected) 57.7 L Arterial Blood HCO3 23.1 Arterial Blood Base Excess -3.2 L Arterial Blood Oxygen Saturation 91.3 L Sanjeev Test ACCEPTAB Arterial Blood Gas Puncture Site Right Radial Arterial Blood Carboxyhemoglobin 0.7 Arterial Blood Methemoglobin 0.6 Blood Gas A-a O2 Differential 246.5 H Oxyhemoglobin Percent 90.1 L Total Hemoglobin 12.7 Blood Gas Temperature 37.0 Blood Gas Respiration Rate 20.0 Blood Gas Actual Respiration Rate 20 Blood Gas Modality VENT - AC FiO2 50.0 Blood Gas Tidal Volume 500.0 Blood Gas Low PEEP Setting 5.0 Blood Gas Notified Pat DAVIS Blood Gas Notified Time 07/27/2017 8:58:43 AM Bedside Glucose 163 126 128 Test 07/27/17 21:22 07/28/17 01:20 07/28/17 05:00 07/28/17 05:14 Bedside Glucose 131 94 106 Blood Gas Specimen Source Blood arterial Arterial Blood Date Drawn 07/28/2017 5:00:00 AM Arterial Blood pH (Temp corrected) 7.147 *L Arterial Blood pCO2 (Temp correct) 71.6 H Arterial Blood pO2 (Temp corrected) 63.8 L Arterial Blood HCO3 24.2 Arterial Blood Base Excess -6.3 L Arterial Blood Oxygen Saturation 91.4 L Sanjeev Test ACCEPTAB Arterial Blood Gas Puncture Site Left Radial Arterial Blood Carboxyhemoglobin 1.8 Arterial Blood Methemoglobin 0.5 Blood Gas A-a O2 Differential 504.5 H Oxyhemoglobin Percent 89.3 L Total Hemoglobin 15.2 Blood Gas Temperature 37.0 Blood Gas Respiration Rate 20.0 Blood Gas Actual Respiration Rate 21 Blood Gas Modality VENT - AC FiO2 90.0 Blood Gas Tidal Volume 500.0 Blood Gas Low PEEP Setting 8.0 Blood Gas Critical Value Read Back SANTOS Blood Gas Notified Whom LW Blood Gas Notified Time 07/28/2017 5:06:00 AM Test 07/28/17 05:23 White Blood Count 23.1 #H Red Blood Count 3.46 L Hemoglobin 11.6 L Hematocrit 35.3 L Mean Corpuscular Volume 102.0 H Mean Corpuscular Hemoglobin 33.5 H Mean Corpuscular Hemoglobin Concent 32.9 Red Cell Distribution Width 16.7 H Platelet Count 31 #L Mean Platelet Volume 12.5 H Neutrophils % 81.9 H Lymphocytes % 5.9 L Monocytes % 8.4 Eosinophils % 1.9 Basophils % 0.3 Nucleated Red Blood Cells % 0.0 Neutrophils # 18.9 H Lymphocytes # 1.4 Monocytes # 2.0 H Eosinophils # 0.4 Basophils # 0.1 Nucleated Red Blood Cells # 0.0 Sodium Level 135 Potassium Level 5.0 Chloride Level 107 Carbon Dioxide Level 23 Anion Gap 10 Blood Urea Nitrogen 64 H Creatinine 1.70 H Glucose Level 108 # Lactic Acid Level 1.2 Calcium Level 7.7 L Total Bilirubin 2.5 H Direct Bilirubin 2.00 #H Indirect Bilirubin 0.5 Aspartate Amino Transf (AST/SGOT) 66 H Alanine Aminotransferase (ALT/SGPT) 34 Alkaline Phosphatase 323 H Total Protein 4.5 L Albumin 2.0 L Globulin 2.50 Albumin/Globulin Ratio 0.80 Medications Medications Current Medications Morphine Sulfate (morphine) 2 mg Q4H PRN IV back pain Last administered on 07/24t 20:46; Admin Dose 2 MG; Start 07/24/17 at 17:30 Ondansetron HCl (Zofran Inj) 4 mg Q6H PRN IV NAUSEA AND/OR VOMITING; Start at 19:00 Morphine Sulfate 4 mg 4 mg Q4H PRN IV PAIN LEVEL 7-10; Start 07/24/17 at 19:00 Cefepime HCl 50 ml @ 100 mls/hr Q24H IVPB Last administered on 07/27/17 09:46 ; Admin Dose 100 MLS/HR; Start 07/25/17 at 10:00 Fluconazole (Diflucan 200 Mg/ NS (Pmx)) 100 ml @ 100 mls/hr Q24H IVPB Last administered on 07/27/17 11:11; Admin Dose 100 MLS/HR; Start 07/25/17 at 11:00 Diagnostic Test (Pha) (Accu-Chek) 1 ea 02 XX ; Start 07/26/17 at 02:00 Insulin Aspart (Novolog Insulin Pen) NOVOLOG *MILD* ALGORI... Q4 SC Last administered on 07/27/17 08:26; Admin Dose 1 UNIT; Start 07/25/17 at 13:00 Miscellaneous Information 1 ea NOTE XX ; Start 07/25/17 at 10:30 Glucose (Glutose) 15 gm Q15M PRN PO DECREASED GLUCOSE; Start 07/25/17 at 10:30 Glucose (Glutose) 22.5 gm Q15M PRN PO DECREASED GLUCOSE; Start 07/25/17 at 10: 30 Dextrose (D50w Syringe) 25 ml Q15M PRN IV DECREASED GLUCOSE; Start 07/25/17 at 10:30 Dextrose (D50w Syringe) 50 ml Q15M PRN IV DECREASED GLUCOSE; Start 07/25/17 at 10:30 Glucagon (Glucagen) 1 mg Q15M PRN IM DECREASED GLUCOSE; Start 07/25/17 at 10:30 Glucose (Glutose) 15 gm Q15M PRN BUCCAL DECREASED GLUCOSE; Start 07/25/17 at 10 :30 Nystatin 1 applic 1 applic BID TOP Last administered on 07/27/17 20:28; Admin Dose 1 APPLIC; Start 07/25/17 at 13:00 Norepinephrine/ Dextrose (Levophed/D5W) 500 ml @ 0 mls/hr TITRATE IV Last administered on 07/28/17 05:08; Admin Dose 56.25 MLS/HR; Start 07/25/17 at 17: 30 IV Flush 10 ml 10 ml PRN PRN IV IV PROTOCOL; Start 07/25/17 at 17:30 Propofol 100 ml @ 3.327 mls/ hr Q12H IV Last administered on 07/26/17 08:42; Admin Dose 9.969 MLS/HR; Start 07/25/17 at 22:00 Midazolam HCl 50 ml @ 1 mls/hr TITRATE IV Last administered on 07/28/17 01:05 ; Admin Dose 5 MLS/HR; Start 07/26/17 at 10:30 Fentanyl 100 ml @ 2.5 mls/hr TITRATE IV Last administered on 07/27/17 18:18; Admin Dose 7.5 MLS/HR; Start 07/26/17 at 10:30 Potassium Chloride/Sodium Chloride 1,000 ml @ 75 mls/hr [id number] IV Last administered on 07/28/17 05:10; Admin Dose 75 MLS/HR; Start 07/26/17 at 13:00 Levofloxacin/ Dextrose 50 ml @ 50 mls/hr Q24H IVPB Last administered on 12:15; Admin Dose 50 MLS/HR; Start 07/27/17 at 12:30 Vasopressin 60 unit/Dextrose 60 ml @ 1.2 mls/hr Q12H IV Last administered on 07/28/17 05:58; Admin Dose 2.4 MLS/HR; Start 07/26/17 at 13:00 Epinephrine/ Sodium Chloride (EPINEPHrine/NS) 250 ml @ 0 mls/hr TITRATE IV Last administered on 07/28/17 05:57; Admin Dose 22.5 MLS/HR; Start 07/26/17 at 14:30 Metoclopramide HCl (Reglan) 5 mg Q12 IV Last administered on 07/27/17 20:28; Admin Dose 5 MG; Start 07/27/17 at 09:30; Stop 07/29/17 at 09:29 Acetaminophen (Tylenol Liquid) 650 mg Q6H PRN NGT PAIN AND OR ELEVATED TEMP Last administered on 07/27/17 20:32; Admin Dose 650 MG; Start 07/27/17 at 20:30 TIANA JUNIOR MD Jul 28, 2017 07:29
[2017-07-28] MEDS: BALSAM PERU/CASTOR OIL 60 GM TUBE TOP SCH ×2 (08:17→21:21)
[2017-07-28] MEDS: SOD CHLORIDE 0.45% 1,000 ML IV SCH (08:17)
[2017-07-28] MEDS: NYSTATIN 30 GM POWDER BTL TOP SCH ×2 (08:17→21:21)
[2017-07-28] MEDS: METOCLOPRAMIDE 10 MG INJ IV SCH ×2 (08:53→21:20)
--- NOTE | 2017-07-28 09:12 | RADRPT ---
PROCEDURE: US Abdomen. CLINICAL INDICATION: Rising bilirubin and elevated alk phos in a septic pt. TECHNIQUE: Multiple real-time images were acquired of the patient's abdomen and retroperitoneum ut ilizing a high resolution transducer. COMPARISON: None FINDINGS: The liver demonstrates mild increased echogenicity. The liver is increased in size and no focal alyssa id lesions are seen. The portal vein is patent with normal direction of flow. No intrahepatic bili eduar dilatation is seen. The liver measures 22.8 cm in length. Several layering gallstones are identified within the gallbladder. There is no pericholecystic flui d or gallbladder wall thickening. The common bile duct is dilated and measures 8.6 mm in maximal dim ension. The visualized portions of the pancreas are unremarkable. No free fluid is identified. The right kidney is normal in size, and demonstrate normal echogenicity and cortical thickness. The right kidney measures 10.9 cm. There is no evidence of hydronephrosis. There are no kidney stones. IMPRESSION: 1. Cholelithiasis. Biliary ductal dilatation. CBD measures 8 mm. 2. Hepatomegaly and mild diffuse fatty infiltration of the liver. RPTAT: [facility] .Wendy Guillen MD, Date Time Electronically viewed and signed by .Wendy Giullen MD, on 07/28/2017 09:12 .M/
[2017-07-28] MEDS: PROPOFOL 100 ML IV SCH ×2 (09:42→21:12)
[2017-07-28] MEDS: CEFEPIME 1GM/50 ML (PMX) 50 ML IVPB SCH (09:45)
[2017-07-28] MEDS: FENTAnyl (DRIP) 1000 mcg/100mL 100 ML IV SCH (09:58)
--- NOTE | 2017-07-28 09:59 | CONS ---
Date/Time of Note Date/Time of Note DATE: 07/28/17 TIME: 09:55 Assessment/Plan Assessment/Plan Additional Assessment/Plan 1. ARF on ckd: suspect atn due to hypotension/ sepsis. improving. despite improved uo she continues to have positive fluid balance and has increased fio2 requirements. will start diuretics/ dc ivf and monitor 2 -Encephalopathy unclear etiology. Toxic metabolic versus infectious. Consider West Nile virus and differential. Consider lumbar puncture.platelet count too low and may have to wait till it improves 3. Hypoxemic and hypercapnic respiratory failure yesterday with difficulty in protecting her airway. Required intubation and mechanical ventilation.requiring more peep. diureses as above 4. Septic shock. Continues vasopressor support. cont to require 3 pressors. E. coli UTI noted in blood and urine. on abx 5. Thrombocytopenia unclear etiology. Questionable DIC. 6- morbid obesity: no change 7-back pain: unable to asses given current condition Consultation Date/Type/Reason Admit Date/Time Jul 24, 2017 at 11:53 Initial Consult Date 07/25/17 Type of Consultation: Pulmonary Reason for Consultation increased fio2 requirements. remains hypotensive on multiple pressors. unreposinsive on vent Exam/Review of Systems Vital Signs Vitals Vital Signs Date Time Temp Pulse Resp B/P Pulse Ox O2 Delivery O2 Flow Rate FiO2 07/28/17 08:15 100.7 95 22 94/53 98 Mechanical Ventilator 07/28/17 08:00 100 07/25/17 16:15 5.0 Intake and Output 07/27/17 07/27/17 07/28/17 15:00 23:00 07:00 Intake Total 1539.30 ml 1314.60 ml 1269.70 ml Output Total 550 ml 510 ml 360 ml Balance 989.30 ml 804.60 ml 909.70 ml Exam Constitutional: alert, non-verbal, oriented, other (orally intubated) Head: normocephalic Neck: supple Respiratory: crackles/rales Cardiovascular: edema (2+ edema), regular rate and rhythm Gastrointestinal: ascites, soft Results Result Diagram: 07/28/17 0523 07/28/17 0523 Results 24 hrs Laboratory Tests Test 07/27/17 12:14 07/27/17 16:07 07/27/17 21:22 07/28/17 01:20 Bedside Glucose 126 128 131 94 Test 07/28/17 05:00 07/28/17 05:14 07/28/17 05:23 07/28/17 08:16 Blood Gas Specimen Source Blood arterial Arterial Blood Date Drawn 07/28/2017 5:00:00 AM Arterial Blood pH (Temp corrected) 7.147 *L Arterial Blood pCO2 (Temp correct) 71.6 H Arterial Blood pO2 (Temp corrected) 63.8 L Arterial Blood HCO3 24.2 Arterial Blood Base Excess -6.3 L Arterial Blood Oxygen Saturation 91.4 L Sanjeev Test ACCEPTAB Arterial Blood Gas Puncture Site Left Radial Arterial Blood Carboxyhemoglobin 1.8 Arterial Blood Methemoglobin 0.5 Blood Gas A-a O2 Differential 504.5 H Oxyhemoglobin Percent 89.3 L Total Hemoglobin 15.2 Blood Gas Temperature 37.0 Blood Gas Respiration Rate 20.0 Blood Gas Actual Respiration Rate 21 Blood Gas Modality VENT - AC FiO2 90.0 Blood Gas Tidal Volume 500.0 Blood Gas Low PEEP Setting 8.0 Blood Gas Critical Value Read Back SANTOS Blood Gas Notified Whom LW Blood Gas Notified Time 07/28/2017 5:06:00 AM Bedside Glucose 106 96 White Blood Count 23.1 #H Red Blood Count 3.46 L Hemoglobin 11.6 L Hematocrit 35.3 L Mean Corpuscular Volume 102.0 H Mean Corpuscular Hemoglobin 33.5 H Mean Corpuscular Hemoglobin Concent 32.9 Red Cell Distribution Width 16.7 H Platelet Count 31 #L Mean Platelet Volume 12.5 H Neutrophils % 81.9 H Lymphocytes % 5.9 L Monocytes % 8.4 Eosinophils % 1.9 Basophils % 0.3 Nucleated Red Blood Cells % 0.0 Neutrophils # 18.9 H Lymphocytes # 1.4 Monocytes # 2.0 H Eosinophils # 0.4 Basophils # 0.1 Nucleated Red Blood Cells # 0.0 Sodium Level 135 Potassium Level 5.0 Chloride Level 107 Carbon Dioxide Level 23 Anion Gap 10 Blood Urea Nitrogen 64 H Creatinine 1.70 H Glucose Level 108 # Lactic Acid Level 1.2 Calcium Level 7.7 L Total Bilirubin 2.5 H Direct Bilirubin 2.00 #H Indirect Bilirubin 0.5 Aspartate Amino Transf (AST/SGOT) 66 H Alanine Aminotransferase (ALT/SGPT) 34 Alkaline Phosphatase 323 H Total Protein 4.5 L Albumin 2.0 L Globulin 2.50 Albumin/Globulin Ratio 0.80 Medications Medications Current Medications Morphine Sulfate (morphine) 2 mg Q4H PRN IV back pain Last administered on 07/24 20:46; Admin Dose 2 MG; Start 07/24/17 at 17:30 Ondansetron HCl (Zofran Inj) 4 mg Q6H PRN IV NAUSEA AND/OR VOMITING; Start at 19:00 Morphine Sulfate 4 mg 4 mg Q4H PRN IV PAIN LEVEL 7-10; Start 07/24/17 at 19:00 Cefepime HCl 50 ml @ 100 mls/hr Q24H IVPB Last administered on 07/28/17 09:45 ; Admin Dose 100 MLS/HR; Start 07/25/17 at 10:00 Fluconazole (Diflucan 200 Mg/ NS (Pmx)) 100 ml @ 100 mls/hr Q24H IVPB Last administered on 07/27/17 11:11; Admin Dose 100 MLS/HR; Start 07/25/17 at 11:00 Diagnostic Test (Pha) (Accu-Chek) 1 ea 02 XX ; Start 07/26/17 at 02:00 Insulin Aspart (Novolog Insulin Pen) NOVOLOG *MILD* ALGORI... Q4 SC Last administered on 07/27/17 08:26; Admin Dose 1 UNIT; Start 07/25/17 at 13:00 Miscellaneous Information 1 ea NOTE XX ; Start 07/25/17 at 10:30 Glucose (Glutose) 15 gm Q15M PRN PO DECREASED GLUCOSE; Start 07/25/17 at 10:30 Glucose (Glutose) 22.5 gm Q15M PRN PO DECREASED GLUCOSE; Start 07/25/17 at 10: 30 Dextrose (D50w Syringe) 25 ml Q15M PRN IV DECREASED GLUCOSE; Start 07/25/17 at 10:30 Dextrose (D50w Syringe) 50 ml Q15M PRN IV DECREASED GLUCOSE; Start 07/25/17 at 10:30 Glucagon (Glucagen) 1 mg Q15M PRN IM DECREASED GLUCOSE; Start 07/25/17 at 10:30 Glucose (Glutose) 15 gm Q15M PRN BUCCAL DECREASED GLUCOSE; Start 07/25/17 at 10 :30 Nystatin 1 applic 1 applic BID TOP Last administered on 07/28/17 08:17; Admin Dose 1 APPLIC; Start 07/25/17 at 13:00 Norepinephrine/ Dextrose (Levophed/D5W) 500 ml @ 0 mls/hr TITRATE IV Last administered on 07/28/17 05:08; Admin Dose 56.25 MLS/HR; Start 07/25/17 at 17: 30 IV Flush 10 ml 10 ml PRN PRN IV IV PROTOCOL; Start 07/25/17 at 17:30 Propofol 100 ml @ 3.327 mls/ hr Q12H IV Last administered on 07/26/17 08:42; Admin Dose 9.969 MLS/HR; Start 07/25/17 at 22:00 Midazolam HCl 50 ml @ 1 mls/hr TITRATE IV Last administered on 07/28/17 01:05 ; Admin Dose 5 MLS/HR; Start 07/26/17 at 10:30 Fentanyl 100 ml @ 2.5 mls/hr TITRATE IV Last administered on 07/27/17 18:18; Admin Dose 7.5 MLS/HR; Start 07/26/17 at 10:30 Levofloxacin/ Dextrose 50 ml @ 50 mls/hr Q24H IVPB Last administered on 12:15; Admin Dose 50 MLS/HR; Start 07/27/17 at 12:30 Vasopressin 60 unit/Dextrose 60 ml @ 1.2 mls/hr Q12H IV Last administered on 07/28/17 05:58; Admin Dose 2.4 MLS/HR; Start 07/26/17 at 13:00 Epinephrine/ Sodium Chloride (EPINEPHrine/NS) 250 ml @ 0 mls/hr TITRATE IV Last administered on 07/28/17 05:57; Admin Dose 22.5 MLS/HR; Start 07/26/17 at 14:30 Metoclopramide HCl (Reglan) 5 mg Q12 IV Last administered on 07/28/17 08:53; Admin Dose 5 MG; Start 07/27/17 at 09:30; Stop 07/29/17 at 09:29 Acetaminophen 650 mg 650 mg Q6H PRN NGT PAIN AND OR ELEVATED TEMP Last administered on 07/27/17 20:32; Admin Dose 650 MG; Start 07/27/17 at 20:30 Sodium Chloride (1/2 NS) 1,000 ml @ 20 mls/hr Q24H IV Last administered on t 08:17; Admin Dose 20 MLS/HR; Start 07/28/17 at 08:00 MARY JUAN MD Jul 28, 2017 09:59
[2017-07-28] MEDS ORDERED: BUMETANIDE 1 MG INJ IV ONE (10:00)
--- NOTE | 2017-07-28 10:09 | RADRPT ---
PROCEDURE: XR Chest. CLINICAL INDICATION: Shortness of breath. TECHNIQUE: Single frontal view. COMPARISON: None. FINDINGS: The endotracheal tube, nasogastric tube, and left arm PICC line remain in satisfactory position. Pul monary edema is unchanged. The lungs are otherwise clear. The heart is enlarged. There is no pleural effusion. There is no pneumothorax. IMPRESSION: 1. No change from 07/26/2017. RPTAT: QQ .Geoff Wood MD, MD Date Time Electronically viewed and signed by .Geoff Wood MD, on 07/28/2017 10:09 .R/
[2017-07-28] MEDS: FLUCONAZOLE 200 MG/NS (PMX) 100 ML IVPB SCH (10:45)
[2017-07-28] MEDS: LEVOFLOXACIN 250MG/D5W (PMX) 50 ML IVPB SCH (11:43)
--- NOTE | 2017-07-28 14:34 | HKNOTE ---
DATE OF SERVICE: 07/28/2017 HISTORY OF PRESENT ILLNESS: The patient is a 71-year-old lady with a history of underlying acute encephalopathy secondary to underlying urosepsis, hypotension, thrombocytopenia. The patient is in the intensive care unit on pressor. PHYSICAL EXAMINATION: GENERAL: On exam today, the patient does not follow simple commands, looks confused. TRANSCRIPTION TYPIST: CN II: Pupils equal on both sides. CN III, IV, VII: Almost intact . CN V and VII: Intact. CN VIII through XII: Could not assess. MOTOR: Slight movement for painful stimuli. SENSATION: Coordination and gait could not be assessed. HEART: Regular rate and rhythm. LUNGS: Equal breath sounds. ABDOMEN: Soft, nondistended, nontender. ASSESSMENT: 1. The patient is 71-year-old with underlying acute encephalopathy, probably secondary to urosepsis with toxic metabolic encephalopathy. His EEG slowing consistent with underlying acute encephalopathy. 2. Decreased mental status, was probably underlying stroke, for which the patient might need MRI when she is stable. 3. Underlying hypotension with the patient on vasopressin for now. 4. History of thrombocytopenia with patient having transfusion of platelets. 5. Underlying urinary tract infection with urosepsis, IV antibiotics. 6. Keep the patient on the deep venous thrombosis prophylaxis as well as decubitus ulcer prophylaxis. Dictated By: Wili Clark MD /carmelina/carlos /Document#: [id number]
--- NOTE | 2017-07-28 14:34 | CONS ---
DATE OF ADMISSION: 07/24/2017 DATE OF CONSULTATION: 07/28/2017 INFECTIOUS DISEASE CONSULTATION: REASON FOR CONSULTATION: Antibiotic management. Ms. Moses is a 71-year-old female with a number of problems who comes in with back pain and is being seen for antibiotic management. PAST PROBLEMS: 1. Obesity. 2. History of prior back pain. 3. Alcohol abuse. 4. ALLERGY TO SULFA. 5. History of seizures in the past. 6. Status post tonsillectomy. 7. Varicose venectomies. 8. Status post . 9. History of blowout fracture of the orbit several years ago which resolved spontaneously. HISTORY OF PRESENT ILLNESS: Acutely, the patient comes in with acute back pain described as low to mid back pain. She denies radiation to her legs. The episode happened on Saturday, 2 days prior to admission. In the emergency room, she was found to have acute renal failure with a creatinine of 3. The last creatinine on April 10 was 0.4. Her white count was 34,000. Urine was grossly infected. She had exudative vaginitis which may be yeast. She had a straight catheterization that was done. On admission, she also complained of frontal headaches which came about the same time as the back pain. She has not been drinking many fluids. Blood cultures and urine cultures were done and she was started on Rocephin. HOSPITAL COURSE: Blood cultures grew out E coli and urine culture grew out E. coli which was sensitive to cefotaxime, Cipro and most everything else. She had normal respiratory zainab. Chest x-ray showed an endotracheal tube in place, this is from today, an NG tube, left arm PICC line in satisfactory position, pulmonary edema. Lungs otherwise clear. Heart is enlarged. No pleural effusion and no pneumothorax. So, she had a PICC line inserted on the 07/25. Chest x-ray on 07/25 showed cardiomegaly with vascular congestion, superimposed multifocal pneumonia cannot be excluded. Patient was seen by numerous consultants. She was seen by Dr. Watson on 07/25, at which time her white count was up to 26.8, platelet count was 19,000. She was then on fluconazole and cefepime. She is currently on Levaquin. She is on pressors. She is on fluconazole and she is on cefepime. She was also seen by Dr. Alfaro who noted she has thrombocytopenia, urinary catheter in place secondary to urinary retention. Lumbar puncture has been considered, but right now she is thrombocytopenic. She has evidence of ARDS with hypotension, acute renal failure, cholelithiasis, hematuria. She is on Versed drip and is nonresponsive. White count today is 23.1, H and H is 11.6 and 35.3, platelet count 31,000. BUN and creatinine 64 and 1.7, which is an improvement. She has an anion gap of 10, lactic acid of 1.2, her alkaline phosphatase is elevated at 323. PAST MEDICAL HISTORY: Operations as outlined. FAMILY HISTORY: Noncontributory. SOCIAL HISTORY: She does not smoke, drink, or abuse drugs. ALLERGIES: SULFA. MEDICATION: Per chart. REVIEW OF SYSTEMS: As per HPI. PHYSICAL EXAMINATION: GENERAL APPEARANCE: Patient is an obese female, she has an ET tube, NG tube, Cartagena catheter, PICC line. SKIN: Without generalized rash. HEENT: Within normal limits. NECK: Supple. Lymph nodes nonpalpable. CHEST: Decreased breath sounds at the bases with scattered rhonchi. HEART: Without murmur or gallop. ABDOMEN: Soft, nontender. There is some intertriginous rash in the lower abdomen in the folds. There is no obvious cellulitis. There is no organosplenomegaly or masses. EXTREMITIES: Without cyanosis, clubbing, or edema. RECTAL/GENITAL: Exam is deferred. NEUROLOGICAL: No focal neurological abnormalities. IMPRESSION AND PLAN: The patient is a 71-year-old female with numerous problems. Currently, she has Escherichia coli urinary tract infection with septic shock and, therefore, is on multiple antibiotics including cefepime and fluconazole. She may require spinal tap or lumbar puncture. I will dictate my findings to Dr. Hawley and the hospitalists. Dictated By: Dave Pollard MD JD/[email or web address]/sergo /Document#: [id number]
--- NOTE | 2017-07-28 14:49 | CONS ---
Date/Time of Note Date/Time of Note DATE: 07/28/17 TIME: 14:44 Consult Date/Type/Reason Admit Date/Time Jul 24, 2017 at 11:53 Initial Consult Date 07/25/17 Type of Consultation: Pulmonary Subjective Remains on 3 pressors; unresponsive on the vent. Objective Vital Signs Date Time Temp Pulse Resp B/P Pulse Ox O2 Delivery O2 Flow Rate FiO2 07/28/17 13:45 102 22 104/53 98 Mechanical Ventilator 07/28/17 11:45 100.7 07/28/17 08:00 100 07/25/17 16:15 5.0 Intake and Output 07/27/17 07/27/17 07/28/17 14:59 22:59 06:59 Intake Total 1556.70 ml 1314.70 ml 1274.20 ml Output Total 550 ml 520 ml 370 ml Balance 1006.70 ml 794.70 ml 904.20 ml Exam HEENT: Neck supple; no JVD; no LAD; + ET tube CVS: RRR, S1 and S2 CHEST: Rhonchi and basilar rales ABD: Soft, NT, + BS EXT: No c/c; + edema Results/Medications Result Diagram: 07/28/17 0523 07/28/17 0523 Results 24 hrs Laboratory Tests Test 07/27/17 16:07 07/27/17 21:22 07/28/17 01:20 07/28/17 05:00 Bedside Glucose 128 131 94 Blood Gas Specimen Source Blood arterial Arterial Blood Date Drawn 07/28/2017 5:00:00 AM Arterial Blood pH (Temp corrected) 7.147 *L Arterial Blood pCO2 (Temp correct) 71.6 H Arterial Blood pO2 (Temp corrected) 63.8 L Arterial Blood HCO3 24.2 Arterial Blood Base Excess -6.3 L Arterial Blood Oxygen Saturation 91.4 L Sanjeev Test ACCEPTAB Arterial Blood Gas Puncture Site Left Radial Arterial Blood Carboxyhemoglobin 1.8 Arterial Blood Methemoglobin 0.5 Blood Gas A-a O2 Differential 504.5 H Oxyhemoglobin Percent 89.3 L Total Hemoglobin 15.2 Blood Gas Temperature 37.0 Blood Gas Respiration Rate 20.0 Blood Gas Actual Respiration Rate 21 Blood Gas Modality VENT - AC FiO2 90.0 Blood Gas Tidal Volume 500.0 Blood Gas Low PEEP Setting 8.0 Blood Gas Critical Value Read Back J.TACSEN Blood Gas Notified Whom LW Blood Gas Notified Time 07/28/2017 5:06:00 AM Test 07/28/17 05:14 07/28/17 05:23 07/28/17 08:16 07/28/17 12:05 Bedside Glucose 106 96 116 White Blood Count 23.1 #H Red Blood Count 3.46 L Hemoglobin 11.6 L Hematocrit 35.3 L Mean Corpuscular Volume 102.0 H Mean Corpuscular Hemoglobin 33.5 H Mean Corpuscular Hemoglobin Concent 32.9 Red Cell Distribution Width 16.7 H Platelet Count 31 #L Mean Platelet Volume 12.5 H Neutrophils % 81.9 H Lymphocytes % 5.9 L Monocytes % 8.4 Eosinophils % 1.9 Basophils % 0.3 Nucleated Red Blood Cells % 0.0 Neutrophils # 18.9 H Lymphocytes # 1.4 Monocytes # 2.0 H Eosinophils # 0.4 Basophils # 0.1 Nucleated Red Blood Cells # 0.0 Sodium Level 135 Potassium Level 5.0 Chloride Level 107 Carbon Dioxide Level 23 Anion Gap 10 Blood Urea Nitrogen 64 H Creatinine 1.70 H Glucose Level 108 # Lactic Acid Level 1.2 Calcium Level 7.7 L Total Bilirubin 2.5 H Direct Bilirubin 2.00 #H Indirect Bilirubin 0.5 Aspartate Amino Transf (AST/SGOT) 66 H Alanine Aminotransferase (ALT/SGPT) 34 Alkaline Phosphatase 323 H Total Protein 4.5 L Albumin 2.0 L Globulin 2.50 Albumin/Globulin Ratio 0.80 Medications Current Medications Morphine Sulfate (morphine) 2 mg Q4H PRN IV back pain Last administered on 07/24 20:46; Admin Dose 2 MG; Start 07/24/17 at 17:30 Ondansetron HCl (Zofran Inj) 4 mg Q6H PRN IV NAUSEA AND/OR VOMITING; Start at 19:00 Morphine Sulfate 4 mg 4 mg Q4H PRN IV PAIN LEVEL 7-10; Start 07/24/17 at 19:00 Cefepime HCl 50 ml @ 100 mls/hr Q24H IVPB Last administered on 07/28/17 09:45 ; Admin Dose 100 MLS/HR; Start 07/25/17 at 10:00 Fluconazole (Diflucan 200 Mg/ NS (Pmx)) 100 ml @ 100 mls/hr Q24H IVPB Last administered on 07/28/17 10:45; Admin Dose 100 MLS/HR; Start 07/25/17 at 11:00 Diagnostic Test (Pha) (Accu-Chek) 1 ea 02 XX ; Start 07/26/17 at 02:00 Insulin Aspart (Novolog Insulin Pen) NOVOLOG *MILD* ALGORI... Q4 SC Last administered on 07/27/17 08:26; Admin Dose 1 UNIT; Start 07/25/17 at 13:00 Miscellaneous Information 1 ea NOTE XX ; Start 07/25/17 at 10:30 Glucose (Glutose) 15 gm Q15M PRN PO DECREASED GLUCOSE; Start 07/25/17 at 10:30 Glucose (Glutose) 22.5 gm Q15M PRN PO DECREASED GLUCOSE; Start 07/25/17 at 10: 30 Dextrose (D50w Syringe) 25 ml Q15M PRN IV DECREASED GLUCOSE; Start 07/25/17 at 10:30 Dextrose (D50w Syringe) 50 ml Q15M PRN IV DECREASED GLUCOSE; Start 07/25/17 at 10:30 Glucagon (Glucagen) 1 mg Q15M PRN IM DECREASED GLUCOSE; Start 07/25/17 at 10:30 Glucose (Glutose) 15 gm Q15M PRN BUCCAL DECREASED GLUCOSE; Start 07/25/17 at 10 :30 Nystatin 1 applic 1 applic BID TOP Last administered on 07/28/17 08:17; Admin Dose 1 APPLIC; Start 07/25/17 at 13:00 Norepinephrine/ Dextrose (Levophed/D5W) 500 ml @ 0 mls/hr TITRATE IV Last administered on 07/28/17 09:59; Admin Dose 56.25 MLS/HR; Start 07/25/17 at 17: 30 IV Flush 10 ml 10 ml PRN PRN IV IV PROTOCOL; Start 07/25/17 at 17:30 Propofol 100 ml @ 3.327 mls/ hr Q12H IV Last administered on 07/26/17 08:42; Admin Dose 9.969 MLS/HR; Start 07/25/17 at 22:00 Midazolam HCl 50 ml @ 1 mls/hr TITRATE IV Last administered on 07/28/17 01:05 ; Admin Dose 5 MLS/HR; Start 07/26/17 at 10:30 Fentanyl 100 ml @ 2.5 mls/hr TITRATE IV Last administered on 07/28/17 09:58; Admin Dose 5 MLS/HR; Start 07/26/17 at 10:30 Levofloxacin/ Dextrose 50 ml @ 50 mls/hr Q24H IVPB Last administered on 11:43; Admin Dose 50 MLS/HR; Start 07/27/17 at 12:30 Vasopressin 60 unit/Dextrose 60 ml @ 1.2 mls/hr Q12H IV Last administered on 07/28/17 05:58; Admin Dose 2.4 MLS/HR; Start 07/26/17 at 13:00 Epinephrine/ Sodium Chloride (EPINEPHrine/NS) 250 ml @ 0 mls/hr TITRATE IV Last administered on 07/28/17 05:57; Admin Dose 22.5 MLS/HR; Start 07/26/17 at 14:30 Metoclopramide HCl (Reglan) 5 mg Q12 IV Last administered on 07/28/17 08:53; Admin Dose 5 MG; Start 07/27/17 at 09:30; Stop 07/29/17 at 09:29 Acetaminophen 650 mg 650 mg Q6H PRN NGT PAIN AND OR ELEVATED TEMP Last administered on 07/27/17 20:32; Admin Dose 650 MG; Start 07/27/17 at 20:30 Sodium Chloride (1/2 NS) 1,000 ml @ 20 mls/hr Q24H IV Last administered on 08:17; Admin Dose 20 MLS/HR; Start 07/28/17 at 08:00 Hydrocortisone (Solu-Cortef) 100 mg Q8 IV ; Start 07/28/17 at 15:00; Status UNV Pantoprazole (Protonix Iv) 40 mg DAILY@06 IV ; Start 07/29/17 at 06:00; Status UNV Assessment/Plan Additional Assessment/Plan IMP: 1. Refractory Septic Shock 2. Hypoxemic Resp Failure with ALI/ARDS. 3. AMS--Toxic/metabolic encephalopathy 4. Thrombocytopenia unclear etiology. Questionable DIC. 5. Renal insufficiency likely ATN injury on top of chronic renal insufficiency. RECS: 1. Continue Vent support--> may increase PEEP 10 2. Abx coverage as per ID 3. Add hydrocortisone 100 mg IV Q8 4. Continue vasopressors 5. Add protonix for GI prophylaxis 6. Obtain DIC panel 40 min cc time NEEMA CABEZAS MD Jul 28, 2017 14:49
[2017-07-28] MEDS: HYDROCORTISONE 100 MG INJ IV SCH ×2 (15:34→21:26)
[2017-07-28] MEDS: ACETAMINOPHEN 650MG/20.3ML CUP NGT PRN ×2 (15:56→22:17)
[2017-07-28] MEDS ORDERED: AMIKACIN 500 MG in DEXTROSE 5% 100 ML IVPB ONE (16:50)
--- NOTE | 2017-07-28 17:50 | HKNOTE ---
DATE OF SERVICE: 07/28/2017 HISTORY OF MAIN COMPLAINT: The patient is 71 years old with multiple medical problems in the form of acute encephalopathy, decreased mini mental status, underlying sepsis, hypertension, lack of communication. The patient was admitted to the intensive care unit for more evaluation and treatment when we got a call about her. MEDICATIONS: Protonix 40 mg daily; hydrocortisone 100 mg every 8 hours; Tylenol 650 mg every 6 hours; Reglan 30 mg daily as needed; Versed titrated; midazolam titrated as needed. PHYSICAL EXAMINATION: GENERAL: The patient does not follow any commands, looks sleepy. CRANIAL NERVES: Cranial nerve II: Pupils equal on both sides, reactive to light. Cranial nerves II, IV and : Extraocular muscles intact. Cranial nerve V: Equal sensation to face. Cranial nerve VII: Symmetrical face. Cranial nerve VIII through XII: Could not assess. Motor exam: Slightly movement for painful stimuli. Sensation and coordination; could not assess. HEART: Regular rate and rhythm. LUNGS: Equal breath sounds. ABDOMEN: Soft, not distended and nontender. ASSESSMENT: 1. The patient is a 71 year old with underlying acute encephalopathy probably secondary to toxic metabolic. 2. Status post septic shock with severe hypertension, the patient on pressor treatment IV drip. 3. Electroencephalogram done which showed generalized slowing consistent with a history of underlying acute encephalopathy. No epileptiform discharge or seizure activity recorded. 4. Suspected underlying stroke in which I ordered MRI, still pending because of the patient's condition. 5. Underlying thrombocytopenia with platelet transfusion. 6. Underlying urosepsis with the patient on IV antibiotics. 7. Will keep the patient under deep venous thrombosis prophylaxis, as well as decubitus ulcer prophylaxis. Dictated By: Wili Clark MD /carmelina/ /Document#: [id number]
[2017-07-28] MEDS ORDERED: LEVOFLOXACIN 500MG/D5W (PMX) 100 ML IVPB SCH (18:00)
[2017-07-28] MEDS: CEFEPIME 2GM/50 ML (PMX) 50 ML IVPB SCH (21:21)
[2017-07-29] VITALS (83 sets, daily range): BP systolic 88–156; BP diastolic 42–80; PULSE 45–118; RESP 18–26
[2017-07-29] MEDS: INSULIN ASPART [NOVOLOG] 3 ML PEN SC SCH ×6 (01:00→20:26)
[2017-07-29] MEDS: ACCU-CHEK XX SCH (01:33)
[2017-07-29] MEDS: FENTAnyl (DRIP) 1000 mcg/100mL 100 ML IV SCH (02:08)
[2017-07-29 05:23] LABS: AADO2 Arterial 440.8 mmHg (7.0-24.0); Allen Test ACCEPTAB; Arterial Base Excess -9.1 mmol/L (-3.0-3); Arterial COHb 1.2 % (0.0-3.0); Arterial Fraction of Oxyhgb 92.2 % (93.0-99.0); Arterial HCO3 20.1 mmol/L (22.0-26.0); Arterial MetHb 0.5 % (0.0-1.5); Arterial Total Hemglobin 12.4 g/dl (12.0-18.0); MODE VENT - AC
[2017-07-29 05:55] LABS: ABNORMAL IP MESSAGE 1; BASOPHIL # 0.1 10^3/ul (0.0-0.1); BASOPHILS % 0.3 % (0.0-2.0); EOSINOPHILS % 0.1 % (0.0-7.0); HEMATOCRIT 33.1 % (37.0-47.0); HEMOGLOBIN 11.1 g/dl (12.0-16.0); LYMPHOCYTES # 1.1 10^3/ul (0.8-2.9); LYMPHOCYTES % 4.2 % (15.0-51.0); MEAN CORPUSCULAR HEMOGLOBIN 34.8 pg (29.0-33.0); MEAN CORPUSCULAR HGB CONC 33.5 g/dl (32.0-37.0); MEAN CORPUSCULAR VOLUME 103.8 fl (82.0-101.0); MEAN PLATELET VOLUME 13.9 fl (7.4-10.4); MONOCYTE # 0.5 10^3/ul (0.3-0.9); NEUTROPHIL # 23.8 10^3/ul (1.6-7.5); NEUTROPHILS % 91.4 % (39.0-77.0); PLATELET COUNT 37 10^3/UL (140-415); RED BLOOD COUNT 3.19 10^6/ul (4.20-5.40); RED CELL DISTRIBUTION WIDTH 16.9 % (11.5-14.5)
[2017-07-29 06:04] LABS: POSITIVE DIFF @See below
[2017-07-29] MEDS: HYDROCORTISONE 100 MG INJ IV SCH ×3 (06:20→22:05)
[2017-07-29] MEDS: PANTOPRAZOLE 40 MG INJ IV SCH (06:20)
[2017-07-29 06:31] LABS: ALBUMIN 2.1 g/dl (3.3-4.9); ALBUMIN/GLOBULIN RATIO 0.65; BILIRUBIN,DIRECT 1.1 mg/dl (0.00-0.20); BILIRUBIN,INDIRECT 0.3 mg/dl (0-1.1); BILIRUBIN,TOTAL 1.4 mg/dl (0.2-1.3); CALCIUM 7.6 mg/dl (8.4-10.2); CREATININE 1.99 mg/dl (0.44-1.00); POTASSIUM 5.5 mmol/L (3.5-5.1); TOTAL PROTEIN 5.3 g/dl (6.1-8.1)
[2017-07-29] MEDS: VASOPRESSIN 60 UNIT in DEXTROSE 5% 57 ML IV SCH (07:07)
--- NOTE | 2017-07-29 07:47 | RADRPT ---
PROCEDURE: XR Chest. CLINICAL INDICATION: Shortness of breath. TECHNIQUE: Single frontal view. COMPARISON: 07/28/2017. FINDINGS: The endotracheal tube, nasogastric tube, and left arm PICC line remain in satisfactory position. Pul monary edema is unchanged. The lungs are otherwise clear. The heart is enlarged. There is no pleural effusion. There is no pneumothorax. IMPRESSION: 1. No change from 07/28/2017. RPTAT: QQ .Geoff Wood MD, MD Date Time Electronically viewed and signed by .Geoff Wood MD, MD on 07/29/2017 07:46 .R/
--- NOTE | 2017-07-29 08:30 | PN ---
Date/Time of Note Date/Time of Note DATE: 07/29/17 TIME: 08:23 Assessment/Plan VTE Prophylaxis VTE Prophylaxis Intervention: contraindicated VTE Contraindication Reason: blood coagulation disorder (thrombocytopenia) Lines/Catheters IV Catheter Type (from Nrs): Peripheral IV Urinary Cath still in place: Yes Subjective 24 Hr Interval Summary Free Text/Dictation sepsis, thrombocytopenia remains unresponsive on sedation, sats ok on one pressor now, bp fair, na is low this am will modify ivs, is on iv solucortef arf...creat 1.9 now gi..has residual w t.f., to dc for now wbc still up, plt low..cont iv antibiotics, us abd without sig abn to explain, cont supportive care minimal bruising, edema imp: encephalopathy, hypotension, sepsis, thrombocytopenia prognosis remains poor Subjective hx not possible: pt non-verbal, pt critical Exam/Review of Systems Vital Signs Vitals Vital Signs Date Time Temp Pulse Resp B/P Pulse Ox O2 Delivery O2 Flow Rate FiO2 07/29/17 07:00 85 22 108/54 100 Mechanical Ventilator 07/29/17 05:49 90 07/29/17 04:00 99.2 07/25/17 16:15 5.0 Intake and Output 07/28/17 07/28/17 07/29/17 15:00 23:00 07:00 Intake Total 1013.20 ml 880.11 ml 756.60 ml Output Total 675 ml 480 ml 185 ml Balance 338.20 ml 400.11 ml 571.60 ml Results Result Diagram: 07/29/17 0420 07/29/17 0420 Results 24 hrs Laboratory Tests Test 07/28/17 12:05 07/28/17 16:13 07/28/17 21:25 07/29/17 02:04 Bedside Glucose 116 92 103 126 Test 07/29/17 04:20 07/29/17 05:00 07/29/17 05:12 White Blood Count 26.0 H Red Blood Count 3.19 L Hemoglobin 11.1 L Hematocrit 33.1 L Mean Corpuscular Volume 103.8 H Mean Corpuscular Hemoglobin 34.8 H Mean Corpuscular Hemoglobin Concent 33.5 Red Cell Distribution Width 16.9 H Platelet Count 37 L Mean Platelet Volume 13.9 H Neutrophils % 91.4 H Lymphocytes % 4.2 L Monocytes % 2.0 Eosinophils % 0.1 Basophils % 0.3 Nucleated Red Blood Cells % 0.0 Neutrophils # 23.8 H Lymphocytes # 1.1 Monocytes # 0.5 Eosinophils # 0.0 Basophils # 0.1 Nucleated Red Blood Cells # 0.0 Sodium Level 122 L Potassium Level 5.5 H Chloride Level 97 # Carbon Dioxide Level 20 L Anion Gap 11 Blood Urea Nitrogen 64 H Creatinine 1.99 H Glucose Level 358 #H Lactic Acid Level 1.1 Calcium Level 7.6 L Total Bilirubin 1.4 H Direct Bilirubin 1.10 #H Indirect Bilirubin 0.3 Aspartate Amino Transf (AST/SGOT) 68 H Alanine Aminotransferase (ALT/SGPT) 35 Alkaline Phosphatase 356 H Total Protein 5.3 L Albumin 2.1 L Globulin 3.20 Albumin/Globulin Ratio 0.65 Blood Gas Specimen Source Blood arterial Arterial Blood Date Drawn 07/29/2017 5:03:14 AM Arterial Blood pH (Temp corrected) 7.153 *L Arterial Blood pCO2 (Temp correct) 58.5 H Arterial Blood pO2 (Temp corrected) 68.2 L Arterial Blood HCO3 20.1 L Arterial Blood Base Excess -9.1 L Arterial Blood Oxygen Saturation 93.8 L Sanjeev Test ACCEPTAB Arterial Blood Gas Puncture Site Right Radial Arterial Blood Carboxyhemoglobin 1.2 Arterial Blood Methemoglobin 0.5 Blood Gas A-a O2 Differential 440.8 H Oxyhemoglobin Percent 92.2 L Total Hemoglobin 12.4 Blood Gas Temperature 37.0 Blood Gas Respiration Rate 22.0 Blood Gas Actual Respiration Rate 22 Blood Gas Modality VENT - AC FiO2 80.0 Blood Gas Tidal Volume 450.0 Blood Gas Low PEEP Setting 10.0 Blood Gas Critical Value Read Back Peggy RIVERO RN Blood Gas Notified Whom DY Blood Gas Notified Time 07/29/2017 5:22:54 AM Bedside Glucose 130 Medications Medications Current Medications Morphine Sulfate (morphine) 2 mg Q4H PRN IV back pain Last administered on 07/24t 20:46; Admin Dose 2 MG; Start 07/24/17 at 17:30 Ondansetron HCl (Zofran Inj) 4 mg Q6H PRN IV NAUSEA AND/OR VOMITING; Start at 19:00 Morphine Sulfate 4 mg 4 mg Q4H PRN IV PAIN LEVEL 7-10; Start 07/24/17 at 19:00 Fluconazole (Diflucan 200 Mg/ NS (Pmx)) 100 ml @ 100 mls/hr Q24H IVPB Last administered on 07/28/17 10:45; Admin Dose 100 MLS/HR; Start 07/25/17 at 11:00 Diagnostic Test (Pha) (Accu-Chek) 1 ea 02 XX ; Start 07/26/17 at 02:00 Insulin Aspart (Novolog Insulin Pen) NOVOLOG *MILD* ALGORI... Q4 SC Last administered on 07/27/17 08:26; Admin Dose 1 UNIT; Start 07/25/17 at 13:00 Miscellaneous Information 1 ea NOTE XX ; Start 07/25/17 at 10:30 Glucose (Glutose) 15 gm Q15M PRN PO DECREASED GLUCOSE; Start 07/25/17 at 10:30 Glucose (Glutose) 22.5 gm Q15M PRN PO DECREASED GLUCOSE; Start 07/25/17 at 10: 30 Dextrose (D50w Syringe) 25 ml Q15M PRN IV DECREASED GLUCOSE; Start 07/25/17 at 10:30 Dextrose (D50w Syringe) 50 ml Q15M PRN IV DECREASED GLUCOSE; Start 07/25/17 at 10:30 Glucagon (Glucagen) 1 mg Q15M PRN IM DECREASED GLUCOSE; Start 07/25/17 at 10:30 Glucose (Glutose) 15 gm Q15M PRN BUCCAL DECREASED GLUCOSE; Start 07/25/17 at 10 :30 Nystatin 1 applic 1 applic BID TOP Last administered on 07/28/17 21:21; Admin Dose 1 APPLIC; Start 07/25/17 at 13:00 Norepinephrine/ Dextrose (Levophed/D5W) 500 ml @ 0 mls/hr TITRATE IV Last administered on 07/29/17 06:42; Admin Dose 56.25 MLS/HR; Start 07/25/17 at 17: 30 IV Flush 10 ml 10 ml PRN PRN IV IV PROTOCOL; Start 07/25/17 at 17:30 Propofol 100 ml @ 3.327 mls/ hr Q12H IV Last administered on 07/26/17 08:42; Admin Dose 9.969 MLS/HR; Start 07/25/17 at 22:00 Midazolam HCl 50 ml @ 1 mls/hr TITRATE IV Last administered on 07/28/17 17:09 ; Admin Dose 3 MLS/HR; Start 07/26/17 at 10:30 Fentanyl 100 ml @ 2.5 mls/hr TITRATE IV Last administered on 07/29/17 02:08; Admin Dose 6 MLS/HR; Start 07/26/17 at 10:30 Vasopressin 60 unit/Dextrose 60 ml @ 1.2 mls/hr Q12H IV Last administered on 07/29/17 07:07; Admin Dose 0.6 MLS/HR; Start 07/26/17 at 13:00 Epinephrine/ Sodium Chloride (EPINEPHrine/NS) 250 ml @ 0 mls/hr TITRATE IV Last administered on 07/28/17 15:59; Admin Dose 22.5 MLS/HR; Start 07/26/17 at 14:30 Metoclopramide HCl (Reglan) 5 mg Q12 IV Last administered on 07/28/17 21:20; Admin Dose 5 MG; Start 07/27/17 at 09:30; Stop 07/29/17 at 09:29 Acetaminophen 650 mg 650 mg Q6H PRN NGT PAIN AND OR ELEVATED TEMP Last administered on 07/28/17 22:17; Admin Dose 650 MG; Start 07/27/17 at 20:30 Sodium Chloride (1/2 NS) 1,000 ml @ 20 mls/hr Q24H IV Last administered on 08:17; Admin Dose 20 MLS/HR; Start 07/28/17 at 08:00 Hydrocortisone (Solu-Cortef) 100 mg Q8 IV Last administered on 07/29/17 06:20 ; Admin Dose 100 MG; Start 07/28/17 at 15:00 Pantoprazole 40 mg 40 mg DAILY@06 IV Last administered on 07/29/17 06:20; Admin Dose 40 MG; Start 07/29/17 at 06:00 Cefepime HCl 50 ml @ 100 mls/hr Q12 IVPB Last administered on 07/28/17 21:21 ; Admin Dose 100 MLS/HR; Start 07/28/17 at 21:00 Levofloxacin/ Dextrose (Levaquin 750 Mg/ D5W 150 ml (Pmx)) 150 ml @ 50 mls/hr Q48H IVPB ; Start 07/30/17 at 10:00 PIPER SANTANA MD Jul 29, 2017 08:30
[2017-07-29] MEDS ORDERED: BUMETANIDE 6 MG in DEXTROSE 5% 36 ML IV ONE (09:00)
--- NOTE | 2017-07-29 09:00 | CONS ---
Date/Time of Note Date/Time of Note DATE: 07/29/17 TIME: 08:52 Assessment/Plan Assessment/Plan Chief Complaint/Hosp Course 1. Acute Renal Failure , due to ATN and sepsis. Her renal function is decreased from yesterday. She has been in positive fluid balance every day. She now has diffuse flank and lower extremity edema. Her blood pressure is low and she is on vasopressors. I will start a Bumex drip and add albumin to see if I can generate a diuresis and remove some of the excess fluid. 2. ALOC /encephalopathy, she is unresponsive today . 3. Hypotension , on pressors 4. E. coli UTI with sepsis on antibiotics . 5. Thrombocytopenia 6. Hyponatremia Problems: Consultation Date/Type/Reason Admit Date/Time Jul 24, 2017 at 11:53 Type of Consultation: renal 24 HR Interval Summary Free Text/Dictation This patient is in the ICU . She is sedated and intubated on a ventilator. Subjective hx not possible: pt non-verbal, pt critical status Exam/Review of Systems Vital Signs Vitals Vital Signs Date Time Temp Pulse Resp B/P Pulse Ox O2 Delivery O2 Flow Rate FiO2 07/29/17 08:30 87 23 102/52 100 07/29/17 08:00 97.3 Mechanical Ventilator 07/29/17 05:49 90 07/25/17 16:15 5.0 Intake and Output 07/28/17 07/28/17 07/29/17 15:00 23:00 07:00 Intake Total 1013.20 ml 880.11 ml 766.60 ml Output Total 675 ml 480 ml 215 ml Balance 338.20 ml 400.11 ml 551.60 ml Exam She has flank and lower extremity edema. Constitutional: non-verbal ENMT: intubated Respiratory: diminished breath sounds Cardiovascular: edema, regular rate and rhythm Gastrointestinal: soft Extremities: edema Results Result Diagram: 07/29/17 0420 07/29/17 042 Results 24 hrs Laboratory Tests Test 07/28/17 12:05 07/28/17 16:13 07/28/17 21:25 07/29/17 02:04 Bedside Glucose 116 92 103 126 Test 07/29/17 04:20 07/29/17 05:00 07/29/17 05:12 White Blood Count 26.0 H Red Blood Count 3.19 L Hemoglobin 11.1 L Hematocrit 33.1 L Mean Corpuscular Volume 103.8 H Mean Corpuscular Hemoglobin 34.8 H Mean Corpuscular Hemoglobin Concent 33.5 Red Cell Distribution Width 16.9 H Platelet Count 37 L Mean Platelet Volume 13.9 H Neutrophils % 91.4 H Lymphocytes % 4.2 L Monocytes % 2.0 Eosinophils % 0.1 Basophils % 0.3 Nucleated Red Blood Cells % 0.0 Neutrophils # 23.8 H Lymphocytes # 1.1 Monocytes # 0.5 Eosinophils # 0.0 Basophils # 0.1 Nucleated Red Blood Cells # 0.0 Sodium Level 122 L Potassium Level 5.5 H Chloride Level 97 # Carbon Dioxide Level 20 L Anion Gap 11 Blood Urea Nitrogen 64 H Creatinine 1.99 H Glucose Level 358 #H Lactic Acid Level 1.1 Calcium Level 7.6 L Total Bilirubin 1.4 H Direct Bilirubin 1.10 #H Indirect Bilirubin 0.3 Aspartate Amino Transf (AST/SGOT) 68 H Alanine Aminotransferase (ALT/SGPT) 35 Alkaline Phosphatase 356 H Total Protein 5.3 L Albumin 2.1 L Globulin 3.20 Albumin/Globulin Ratio 0.65 Blood Gas Specimen Source Blood arterial Arterial Blood Date Drawn 07/29/2017 5:03:14 AM Arterial Blood pH (Temp corrected) 7.153 *L Arterial Blood pCO2 (Temp correct) 58.5 H Arterial Blood pO2 (Temp corrected) 68.2 L Arterial Blood HCO3 20.1 L Arterial Blood Base Excess -9.1 L Arterial Blood Oxygen Saturation 93.8 L Sanjeev Test ACCEPTAB Arterial Blood Gas Puncture Site Right Radial Arterial Blood Carboxyhemoglobin 1.2 Arterial Blood Methemoglobin 0.5 Blood Gas A-a O2 Differential 440.8 H Oxyhemoglobin Percent 92.2 L Total Hemoglobin 12.4 Blood Gas Temperature 37.0 Blood Gas Respiration Rate 22.0 Blood Gas Actual Respiration Rate 22 Blood Gas Modality VENT - AC FiO2 80.0 Blood Gas Tidal Volume 450.0 Blood Gas Low PEEP Setting 10.0 Blood Gas Critical Value Read Back Peggy RIVERO RN Blood Gas Notified Whom DY Blood Gas Notified Time 07/29/2017 5:22:54 AM Bedside Glucose 130 Medications Medications Current Medications Morphine Sulfate (morphine) 2 mg Q4H PRN IV back pain Last administered on 07/24t 20:46; Admin Dose 2 MG; Start 07/24/17 at 17:30 Ondansetron HCl (Zofran Inj) 4 mg Q6H PRN IV NAUSEA AND/OR VOMITING; Start at 19:00 Morphine Sulfate 4 mg 4 mg Q4H PRN IV PAIN LEVEL 7-10; Start 07/24/17 at 19:00 Fluconazole (Diflucan 200 Mg/ NS (Pmx)) 100 ml @ 100 mls/hr Q24H IVPB Last administered on 07/28/17 10:45; Admin Dose 100 MLS/HR; Start 07/25/17 at 11:00 Diagnostic Test (Pha) (Accu-Chek) 1 ea 02 XX ; Start 07/26/17 at 02:00 Insulin Aspart (Novolog Insulin Pen) NOVOLOG *MILD* ALGORI... Q4 SC Last administered on 07/27/17 08:26; Admin Dose 1 UNIT; Start 07/25/17 at 13:00 Miscellaneous Information 1 ea NOTE XX ; Start 07/25/17 at 10:30 Glucose (Glutose) 15 gm Q15M PRN PO DECREASED GLUCOSE; Start 07/25/17 at 10:30 Glucose (Glutose) 22.5 gm Q15M PRN PO DECREASED GLUCOSE; Start 07/25/17 at 10: 30 Dextrose (D50w Syringe) 25 ml Q15M PRN IV DECREASED GLUCOSE; Start 07/25/17 at 10:30 Dextrose (D50w Syringe) 50 ml Q15M PRN IV DECREASED GLUCOSE; Start 07/25/17 at 10:30 Glucagon (Glucagen) 1 mg Q15M PRN IM DECREASED GLUCOSE; Start 07/25/17 at 10:30 Glucose (Glutose) 15 gm Q15M PRN BUCCAL DECREASED GLUCOSE; Start 07/25/17 at 10 :30 Nystatin 1 applic 1 applic BID TOP Last administered on 07/28/17 21:21; Admin Dose 1 APPLIC; Start 07/25/17 at 13:00 Norepinephrine/ Dextrose (Levophed/D5W) 500 ml @ 0 mls/hr TITRATE IV Last administered on 07/29/17 06:42; Admin Dose 56.25 MLS/HR; Start 07/25/17 at 17: 30 IV Flush 10 ml 10 ml PRN PRN IV IV PROTOCOL; Start 07/25/17 at 17:30 Propofol 100 ml @ 3.327 mls/ hr Q12H IV Last administered on 07/26/17 08:42; Admin Dose 9.969 MLS/HR; Start 07/25/17 at 22:00 Midazolam HCl 50 ml @ 1 mls/hr TITRATE IV Last administered on 07/28/17 17:09 ; Admin Dose 3 MLS/HR; Start 07/26/17 at 10:30 Fentanyl 100 ml @ 2.5 mls/hr TITRATE IV Last administered on 07/29/17 02:08; Admin Dose 6 MLS/HR; Start 07/26/17 at 10:30 Vasopressin 60 unit/Dextrose 60 ml @ 1.2 mls/hr Q12H IV Last administered on 07/29/17 07:07; Admin Dose 0.6 MLS/HR; Start 07/26/17 at 13:00 Epinephrine/ Sodium Chloride (EPINEPHrine/NS) 250 ml @ 0 mls/hr TITRATE IV Last administered on 07/28/17 15:59; Admin Dose 22.5 MLS/HR; Start 07/26/17 at 14:30 Metoclopramide HCl (Reglan) 5 mg Q12 IV Last administered on 07/28/17 21:20; Admin Dose 5 MG; Start 07/27/17 at 09:30; Stop 07/29/17 at 09:29 Acetaminophen 650 mg 650 mg Q6H PRN NGT PAIN AND OR ELEVATED TEMP Last administered on 07/28/17 22:17; Admin Dose 650 MG; Start 07/27/17 at 20:30 Sodium Chloride (1/2 NS) 1,000 ml @ 20 mls/hr Q24H IV Last administered on 08:17; Admin Dose 20 MLS/HR; Start 07/28/17 at 08:00 Hydrocortisone (Solu-Cortef) 100 mg Q8 IV Last administered on 07/29/17 06:20 ; Admin Dose 100 MG; Start 07/28/17 at 15:00 Pantoprazole 40 mg 40 mg DAILY@06 IV Last administered on 07/29/17 06:20; Admin Dose 40 MG; Start 07/29/17 at 06:00 Cefepime HCl 50 ml @ 100 mls/hr Q12 IVPB Last administered on 10/1/17at 21:21 ; Admin Dose 100 MLS/HR; Start 07/28/17 at 21:00 Levofloxacin/ Dextrose 150 ml @ 50 mls/hr Q48H IVPB ; Start 07/30/17 at 10:00 Bumetanide 6 mg/ Dextrose 60 ml @ 10 mls/hr Q6H ONCE IV ; Start 07/29/17 at 09: 00; Stop 07/29/17 at 14:59 Albumin Human (Albumin Human 25%) 100 ml @ 100 mls/hr Q8H IV ; Start 07/29/17 at 09:00; Stop 07/30/17 at 01:59 GRACE GRANDE MD Jul 29, 2017 09:00
[2017-07-29] MEDS: SOD CHLORIDE 0.45% 1,000 ML IV SCH (09:06)
[2017-07-29] MEDS: NYSTATIN 30 GM POWDER BTL TOP SCH ×2 (09:07→20:27)
[2017-07-29] MEDS: CEFEPIME 2GM/50 ML (PMX) 50 ML IVPB SCH (09:07)
[2017-07-29] MEDS: PROPOFOL 100 ML IV SCH ×2 (09:07→20:45)
[2017-07-29] MEDS: BALSAM PERU/CASTOR OIL 60 GM TUBE TOP SCH ×2 (09:07→20:27)
[2017-07-29] MEDS: METOCLOPRAMIDE 10 MG INJ IV SCH (09:07)
[2017-07-29] MEDS: ALBUMIN HUMAN 25% 100 ML IV SCH ×2 (09:09→17:33)
[2017-07-29] MEDS ORDERED: NA BICARBONATE 8.4% 50 ML SYG IV STA (10:37)
[2017-07-29] MEDS: FLUCONAZOLE 200 MG/NS (PMX) 100 ML IVPB SCH (11:09)
--- NOTE | 2017-07-29 11:24 | CONS ---
Date/Time of Note Date/Time of Note DATE: 07/29/17 TIME: 10:43 Consult Date/Type/Reason Admit Date/Time Jul 24, 2017 at 11:53 Initial Consult Date 07/25/17 Type of Consultation: Pulmonary Subjective Patient remains intubated sedated on mechanical ventilation continues vasopressor support. Objective Vital Signs Date Time Temp Pulse Resp B/P Pulse Ox O2 Delivery O2 Flow Rate FiO2 07/29/17 08:30 87 23 102/52 100 07/29/17 08:00 97.3 Mechanical Ventilator 07/29/17 05:49 90 07/25/17 16:15 5.0 Intake and Output 07/28/17 07/28/17 07/29/17 15:00 23:00 07:00 Intake Total 1013.20 ml 880.11 ml 766.60 ml Output Total 675 ml 480 ml 215 ml Balance 338.20 ml 400.11 ml 551.60 ml Exam PHYSICAL EXAMINATION GENERAL: Elderly lady intubated on mechanical ventilation appears comfortable at rest VITAL SIGNS: see below. HEENT: Pupils equal, round, and reactive to light. CARDIAC: S1, S2, 1/6 systolic ejection murmur CHEST: Diminished air entry bilaterally. ABDOMEN: Mildly distended. Bowel sounds present no guarding or rebound EXTREMITIES: No cyanosis, clubbing edema +2 NEUROLOGIC: Generalized weakness Results/Medications Result Diagram: 07/29/17 0420 07/29/17 0420 Results 24 hrs Laboratory Tests Test 07/28/17 12:05 07/28/17 16:13 07/28/17 21:25 07/29/17 02:04 Bedside Glucose 116 92 103 126 Test 07/29/17 04:20 07/29/17 05:00 07/29/17 05:12 07/29/17 09:26 White Blood Count 26.0 H Red Blood Count 3.19 L Hemoglobin 11.1 L Hematocrit 33.1 L Mean Corpuscular Volume 103.8 H Mean Corpuscular Hemoglobin 34.8 H Mean Corpuscular Hemoglobin Concent 33.5 Red Cell Distribution Width 16.9 H Platelet Count 37 L Mean Platelet Volume 13.9 H Neutrophils % 91.4 H Lymphocytes % 4.2 L Monocytes % 2.0 Eosinophils % 0.1 Basophils % 0.3 Nucleated Red Blood Cells % 0.0 Neutrophils # 23.8 H Lymphocytes # 1.1 Monocytes # 0.5 Eosinophils # 0.0 Basophils # 0.1 Nucleated Red Blood Cells # 0.0 Sodium Level 122 L Potassium Level 5.5 H Chloride Level 97 # Carbon Dioxide Level 20 L Anion Gap 11 Blood Urea Nitrogen 64 H Creatinine 1.99 H Glucose Level 358 #H Lactic Acid Level 1.1 Calcium Level 7.6 L Total Bilirubin 1.4 H Direct Bilirubin 1.10 #H Indirect Bilirubin 0.3 Aspartate Amino Transf (AST/SGOT) 68 H Alanine Aminotransferase (ALT/SGPT) 35 Alkaline Phosphatase 356 H Total Protein 5.3 L Albumin 2.1 L Globulin 3.20 Albumin/Globulin Ratio 0.65 Blood Gas Specimen Source Blood arterial Arterial Blood Date Drawn 07/29/2017 5:03:14 AM Arterial Blood pH (Temp corrected) 7.153 *L Arterial Blood pCO2 (Temp correct) 58.5 H Arterial Blood pO2 (Temp corrected) 68.2 L Arterial Blood HCO3 20.1 L Arterial Blood Base Excess -9.1 L Arterial Blood Oxygen Saturation 93.8 L Sanjeev Test ACCEPTAB Arterial Blood Gas Puncture Site Right Radial Arterial Blood Carboxyhemoglobin 1.2 Arterial Blood Methemoglobin 0.5 Blood Gas A-a O2 Differential 440.8 H Oxyhemoglobin Percent 92.2 L Total Hemoglobin 12.4 Blood Gas Temperature 37.0 Blood Gas Respiration Rate 22.0 Blood Gas Actual Respiration Rate 22 Blood Gas Modality VENT - AC FiO2 80.0 Blood Gas Tidal Volume 450.0 Blood Gas Low PEEP Setting 10.0 Blood Gas Critical Value Read Back Peggy RIVERO RN Blood Gas Notified Whom DY Blood Gas Notified Time 07/29/2017 5:22:54 AM Bedside Glucose 130 139 Medications Current Medications Morphine Sulfate (morphine) 2 mg Q4H PRN IV back pain Last administered on 07/24 20:46; Admin Dose 2 MG; Start 07/24/17 at 17:30 Ondansetron HCl (Zofran Inj) 4 mg Q6H PRN IV NAUSEA AND/OR VOMITING; Start at 19:00 Morphine Sulfate 4 mg 4 mg Q4H PRN IV PAIN LEVEL 7-10; Start 07/24/17 at 19:00 Fluconazole (Diflucan 200 Mg/ NS (Pmx)) 100 ml @ 100 mls/hr Q24H IVPB Last administered on 07/28/17 10:45; Admin Dose 100 MLS/HR; Start 07/25/17 at 11:00 Diagnostic Test (Pha) (Accu-Chek) 1 ea 02 XX ; Start 07/26/17 at 02:00 Insulin Aspart (Novolog Insulin Pen) NOVOLOG *MILD* ALGORI... Q4 SC Last administered on 07/27/17 08:26; Admin Dose 1 UNIT; Start 07/25/17 at 13:00 Miscellaneous Information 1 ea NOTE XX ; Start 07/25/17 at 10:30 Glucose (Glutose) 15 gm Q15M PRN PO DECREASED GLUCOSE; Start 07/25/17 at 10:30 Glucose (Glutose) 22.5 gm Q15M PRN PO DECREASED GLUCOSE; Start 07/25/17 at 10: 30 Dextrose (D50w Syringe) 25 ml Q15M PRN IV DECREASED GLUCOSE; Start 07/25/17 at 10:30 Dextrose (D50w Syringe) 50 ml Q15M PRN IV DECREASED GLUCOSE; Start 07/25/17 at 10:30 Glucagon (Glucagen) 1 mg Q15M PRN IM DECREASED GLUCOSE; Start 07/25/17 at 10:30 Glucose (Glutose) 15 gm Q15M PRN BUCCAL DECREASED GLUCOSE; Start 07/25/17 at 10 :30 Nystatin 1 applic 1 applic BID TOP Last administered on 07/29/17 09:07; Admin Dose 1 APPLIC; Start 07/25/17 at 13:00 Norepinephrine/ Dextrose (Levophed/D5W) 500 ml @ 0 mls/hr TITRATE IV Last administered on 07/29/17 06:42; Admin Dose 56.25 MLS/HR; Start 07/25/17 at 17: 30 IV Flush 10 ml 10 ml PRN PRN IV IV PROTOCOL; Start 07/25/17 at 17:30 Propofol 100 ml @ 3.327 mls/ hr Q12H IV Last administered on 07/26/17 08:42; Admin Dose 9.969 MLS/HR; Start 07/25/17 at 22:00 Midazolam HCl 50 ml @ 1 mls/hr TITRATE IV Last administered on 07/28/17 17:09 ; Admin Dose 3 MLS/HR; Start 07/26/17 at 10:30 Fentanyl 100 ml @ 2.5 mls/hr TITRATE IV Last administered on 07/29/17 02:08; Admin Dose 6 MLS/HR; Start 07/26/17 at 10:30 Vasopressin 60 unit/Dextrose 60 ml @ 1.2 mls/hr Q12H IV Last administered on 07/29/17 07:07; Admin Dose 0.6 MLS/HR; Start 07/26/17 at 13:00 Epinephrine/ Sodium Chloride (EPINEPHrine/NS) 250 ml @ 0 mls/hr TITRATE IV Last administered on 07/28/17 15:59; Admin Dose 22.5 MLS/HR; Start 07/26/17 at 14:30 Acetaminophen 650 mg 650 mg Q6H PRN NGT PAIN AND OR ELEVATED TEMP Last administered on 07/28/17 22:17; Admin Dose 650 MG; Start 07/27/17 at 20:30 Sodium Chloride (1/2 NS) 1,000 ml @ 20 mls/hr Q24H IV Last administered on 09:06; Admin Dose 20 MLS/HR; Start 07/28/17 at 08:00 Hydrocortisone (Solu-Cortef) 100 mg Q8 IV Last administered on 07/29/17 06:20 ; Admin Dose 100 MG; Start 07/28/17 at 15:00 Pantoprazole 40 mg 40 mg DAILY@06 IV Last administered on 07/29/17 06:20; Admin Dose 40 MG; Start 07/29/17 at 06:00 Cefepime HCl 50 ml @ 100 mls/hr Q12 IVPB Last administered on 07/29/17 09:07 ; Admin Dose 100 MLS/HR; Start 07/28/17 at 21:00 Levofloxacin/ Dextrose 150 ml @ 50 mls/hr Q48H IVPB ; Start 07/30/17 at 10:00 Bumetanide 6 mg/ Dextrose 60 ml @ 10 mls/hr Q6H ONCE IV Last administered on 10:38; Admin Dose 10 MLS/HR; Start 07/29/17 at 09:00; Stop 07/29/17 at 14:59 Albumin Human (Albumin Human 25%) 100 ml @ 100 mls/hr Q8H IV Last administered on 07/29/17 09:09; Admin Dose 100 MLS/HR; Start 07/29/17 at 09:00 ; Stop 07/30/17 at 01:59 Assessment/Plan Chief Complaint/Hosp Course Assessment 1. Encephalopathy probably toxic metabolic 2. Hypoxemic and hypercapnic respiratory failure, worsening hypercapnia on current vent settings. Significant mixed acidosis. 3. Gram-negative septic shock 4. Thrombocytopenia unclear etiology. Questionable DIC. 5. Renal insufficiency likely ATN injury on top of chronic renal insufficiency. Plan 1. Tube feeding if tolerated 2. Continue broad-spectrum antibiotic coverage, Continue vasopressor support. 3. Consider lumbar puncture if neurological status does not improve in the next few days. 4. Continue mechanical ventilation. Increase minute ventilation bicarbonate 1 amp times 1, repeat arterial blood gas 5. Switch from protocol to Versed and fentanyl. 6. Monitor renal function. Critical care time 40 minutes. Discussed with staff. Problems: DIMITRY VILLAVICENCIO MD, [facility] Jul 29, 2017 10:46
[2017-07-29] MEDS ORDERED: VANCOMYCIN IV PER PHARMACY XX SCH (11:30)
[2017-07-29] MEDS ORDERED: VANCOMYCIN 2 GM in SOD CHLORIDE 0.9% 500 ML IVPB ONE (12:30)
[2017-07-29] MEDS: MEROPENEM 500MG/50 ML (PMX) 50 ML IVPB SCH ×2 (13:01→20:27)
[2017-07-29 14:08] LABS: Allen Test ACCEPTAB; Arterial Base Excess -5.3 mmol/L (-3.0-3); Arterial COHb 0.2 % (0.0-3.0); Arterial Fraction of Oxyhgb 98.7 % (93.0-99.0); Arterial HCO3 20.7 mmol/L (22.0-26.0); Arterial MetHb 0.6 % (0.0-1.5); Arterial Total Hemglobin 12.1 g/dl (12.0-18.0); MODE VENT - AC
--- NOTE | 2017-07-29 18:22 | PN ---
DATE: 07/29/2017 SUBJECTIVE DATA: No acute changes overnight. The patient remains intubated, sedated on Levophed drip. She is in no distress. VITAL SIGNS: T-max yesterday was 101.9. T-current 97.3, pulse 85, respirations 22, blood pressure 111/49, saturation 100 percent. INDWELLINGS: Endotracheal tube, NG tube, [place] catheter, left upper extremity PICC line. MICROBIOLOGY: Blood and urine culture growing E. coli. On admission a repeat urine culture is negative. DIAGNOSTICS: Chest x-ray this morning revealed pulmonary edema unchanged. ANTIMICROBIALS: The patient is on: 1. Levaquin. 2. Cefepime.. 3. Solu-Cortef. PHYSICAL EXAMINATION: GENERAL: This is a morbidly obese, elderly woman, who is intubated, sedated, and in no distress. HEENT: Head atraumatic, normocephalic. Sclerae anicteric. Buccal mucosa dry. NECK: Obese. CHEST: Rise symmetrical. Breath sounds diminished at the bases. HEART: S1, S2. ABDOMEN: Soft, bowel sounds hypoactive. EXTREMITIES: With bilateral edema. Left lower extremity with erythema below her knee. ASSESSMENT: 1. Severe sepsis with shock. 2. Escherichia coli urinary tract infection with bacteremia. 3. Left lower extremity cellulitis. 4. Hypoxemic respiratory failure, possibly aspiration event. 5. Cholelithiasis with biliary ductal dilatation per ultrasound as well as hepatomegaly. 6. Acute renal failure. 7. Anemia with significant thrombocytopenia. PLAN: We are going to change antibiotics to meropenem to add anaerobic coverage. We will add vancomycin for left lower extremity cellulitis. Repeat blood cultures. Monitor her LFT and total bilirubin closely. So far it is trending down. Monitor renal function. Continue vent support as per Pulmonary. Continue steroids taper. Dictated By: Sterling Acuña NP /carmelina/ronda /Document#: [id number]
[2017-07-29 20:08] LABS: CALCIUM 7.7 mg/dl (8.4-10.2); CREATININE 2.09 mg/dl (0.44-1.00); MAGNESIUM 2.1 mg/dl (1.7-2.5); POTASSIUM 4.7 mmol/L (3.5-5.1)
[2017-07-29] MEDS: DOPamine-D5W 1.6 MG/ML 250 ML IV SCH (20:31)
[2017-07-30] VITALS (99 sets, daily range): BP systolic 84–127; BP diastolic 42–76; PULSE 51–75; RESP 17–29
[2017-07-30] MEDS: VASOPRESSIN 60 UNIT in DEXTROSE 5% 57 ML IV SCH ×2 (01:00→13:00)
[2017-07-30] MEDS: INSULIN ASPART [NOVOLOG] 3 ML PEN SC SCH ×5 (01:00→21:00)
[2017-07-30] MEDS: ACCU-CHEK XX SCH (01:26)
[2017-07-30] MEDS: ALBUMIN HUMAN 25% 100 ML IV SCH (01:51)
[2017-07-30 05:34] LABS: ABNORMAL IP MESSAGE 1; BASOPHILS % 0.1 % (0.0-2.0); HEMATOCRIT 29.7 % (37.0-47.0); HEMOGLOBIN 10.2 g/dl (12.0-16.0); LYMPHOCYTES # 0.6 10^3/ul (0.8-2.9); MEAN CORPUSCULAR HEMOGLOBIN 33.4 pg (29.0-33.0); MEAN CORPUSCULAR HGB CONC 34.3 g/dl (32.0-37.0); MEAN CORPUSCULAR VOLUME 97.4 fl (82.0-101.0); MEAN PLATELET VOLUME 12.2 fl (7.4-10.4); MONOCYTE # 0.3 10^3/ul (0.3-0.9); MONOCYTES % 2.4 % (0.0-11.0); NEUTROPHIL # 13.1 10^3/ul (1.6-7.5); NEUTROPHILS % 92.4 % (39.0-77.0); PLATELET COUNT 44 10^3/UL (140-415); RED BLOOD COUNT 3.05 10^6/ul (4.20-5.40); RED CELL DISTRIBUTION WIDTH 15.9 % (11.5-14.5); WHITE BLOOD COUNT 14.2 10^3/ul (4.8-10.8)
[2017-07-30 05:55] LABS: ALBUMIN 2.9 g/dl (3.3-4.9); ALBUMIN/GLOBULIN RATIO 1.03; BILIRUBIN,DIRECT 0.4 mg/dl (0.00-0.20); BILIRUBIN,INDIRECT 0.5 mg/dl (0-1.1); BILIRUBIN,TOTAL 0.9 mg/dl (0.2-1.3); CREATININE 2.12 mg/dl (0.44-1.00); POTASSIUM 4.3 mmol/L (3.5-5.1); TOTAL PROTEIN 5.7 g/dl (6.1-8.1)
[2017-07-30] MEDS: HYDROCORTISONE 100 MG INJ IV SCH ×3 (06:07→21:13)
[2017-07-30] MEDS: PANTOPRAZOLE 40 MG INJ IV SCH (06:07)
[2017-07-30 06:08] LABS: MAGNESIUM 2.2 mg/dl (1.7-2.5); PHOSPHORUS 5.3 mg/dl (2.5-4.9)
[2017-07-30 06:13] LABS: POSITIVE DIFF @See below
--- NOTE | 2017-07-30 08:12 | CONS ---
Date/Time of Note Date/Time of Note DATE: 07/30/17 TIME: 08:08 Assessment/Plan Assessment/Plan Chief Complaint/Hosp Course 1. Acute Renal Failure , due to ATN and sepsis. Her renal function is decreased from yesterday. She has been in positive fluid balance every day. She now has diffuse flank and lower extremity edema. Her blood pressure is low; however, she is being tapered off pressors and is now only on one drip.. She had a good response to Bumex yesterday with a good urine output and was in negative fluid balance. I will continue Bumex drip today. 2. ALOC /encephalopathy, she is unresponsive today . 3. Hypotension , on pressors 4. E. coli UTI with sepsis on antibiotics . 5. Thrombocytopenia , improving 6. Hyponatremia , corrected with diuretics yesterday. Problems: Consultation Date/Type/Reason Admit Date/Time Jul 24, 2017 at 11:53 Type of Consultation: Pulmonary 24 HR Interval Summary Free Text/Dictation She is in the ICU intubated, on a ventilator, and sedated. She is unresponsive. Her urine output increased yesterday with Bumex drip. Subjective hx not possible: pt non-verbal Exam/Review of Systems Vital Signs Vitals Vital Signs Date Time Temp Pulse Resp B/P Pulse Ox O2 Delivery O2 Flow Rate FiO2 07/30/17 07:51 50 07/30/17 06:45 56 26 116/52 98 07/30/17 06:00 Mechanical Ventilator 07/30/17 04:00 98.8 Intake and Output 07/29/17 07/29/17 07/30/17 15:00 23:00 07:00 Intake Total 656.25 ml 897.00 ml 261.22 ml Output Total 385 ml 1275 ml 1100 ml Balance 271.25 ml -378.00 ml -838.78 ml Exam With flank edema Constitutional: non-verbal ENMT: intubated Respiratory: wheezing Cardiovascular: edema, regular rate and rhythm Gastrointestinal: distended, soft Extremities: edema Results Result Diagram: 07/30/17 0430 07/30/17 0430 Results 24 hrs Laboratory Tests Test 07/29/17 09:26 07/29/17 13:15 07/29/17 14:00 07/29/17 17:30 Bedside Glucose 139 142 134 Blood Gas Specimen Source Blood arterial Arterial Blood Date Drawn 07/29/2017 2:00:02 PM Arterial Blood pH (Temp corrected) 7.306 L Arterial Blood pCO2 (Temp correct) 42.5 Arterial Blood pO2 (Temp corrected) 289.5 H Arterial Blood HCO3 20.7 L Arterial Blood Base Excess -5.3 L Arterial Blood Oxygen Saturation 99.5 H Sanjeev Test ACCEPTAB Arterial Blood Gas Puncture Site Right Radial Arterial Blood Carboxyhemoglobin 0.2 Arterial Blood Methemoglobin 0.6 Blood Gas A-a O2 Differential 381.0 H Oxyhemoglobin Percent 98.7 Total Hemoglobin 12.1 Blood Gas Temperature 37.0 Blood Gas Respiration Rate 26.0 Blood Gas Actual Respiration Rate 26 Blood Gas Modality VENT - AC FiO2 100.0 Blood Gas Tidal Volume 500.0 Blood Gas Low PEEP Setting 10.0 Blood Gas Notified Whom JLD Blood Gas Notified Time 07/29/2017 2:08:50 PM Test 07/29/17 19:39 07/29/17 20:25 07/30/17 01:24 07/30/17 04:30 Sodium Level 131 L 137 Potassium Level 4.7 4.3 Chloride Level 102 105 Carbon Dioxide Level 20 L 21 Anion Gap 14 15 Blood Urea Nitrogen 75 H 80 H Creatinine 2.09 H 2.12 H Glucose Level 227 #H 132 # Calcium Level 7.7 L 8.0 L Magnesium Level 2.1 2.2 Bedside Glucose 118 124 122 White Blood Count 14.2 #H Red Blood Count 3.05 L Hemoglobin 10.2 L Hematocrit 29.7 L Mean Corpuscular Volume 97.4 Mean Corpuscular Hemoglobin 33.4 H Mean Corpuscular Hemoglobin Concent 34.3 Red Cell Distribution Width 15.9 H Platelet Count 44 L Mean Platelet Volume 12.2 H Neutrophils % 92.4 H Lymphocytes % 4.0 L Monocytes % 2.4 Eosinophils % 0.0 Basophils % 0.1 Nucleated Red Blood Cells % 0.0 Neutrophils # 13.1 H Lymphocytes # 0.6 L Monocytes # 0.3 Eosinophils # 0.0 Basophils # 0.0 Nucleated Red Blood Cells # 0.0 Erythrocyte Sedimentation Rate 79 H Phosphorus Level 5.3 H Total Bilirubin 0.9 Direct Bilirubin 0.40 #H Indirect Bilirubin 0.5 Aspartate Amino Transf (AST/SGOT) 35 Alanine Aminotransferase (ALT/SGPT) 32 Alkaline Phosphatase 250 H Total Protein 5.7 L Albumin 2.9 L Globulin 2.80 Albumin/Globulin Ratio 1.03 Medications Medications Current Medications Morphine Sulfate (morphine) 2 mg Q4H PRN IV back pain Last administered on 07/24 20:46; Admin Dose 2 MG; Start 07/24/17 at 17:30 Ondansetron HCl (Zofran Inj) 4 mg Q6H PRN IV NAUSEA AND/OR VOMITING; Start at 19:00 Morphine Sulfate 4 mg 4 mg Q4H PRN IV PAIN LEVEL 7-10; Start 07/24/17 at 19:00 Fluconazole (Diflucan 200 Mg/ NS (Pmx)) 100 ml @ 100 mls/hr Q24H IVPB Last administered on 07/29/17 11:09; Admin Dose 100 MLS/HR; Start 07/25/17 at 11:00 Diagnostic Test (Pha) (Accu-Chek) 1 ea 02 XX ; Start 07/26/17 at 02:00 Insulin Aspart (Novolog Insulin Pen) NOVOLOG *MILD* ALGORI... Q4 SC Last administered on 07/29/17 13:17; Admin Dose 1 UNIT; Start 07/25/17 at 13:00 Miscellaneous Information 1 ea NOTE XX ; Start 07/25/17 at 10:30 Glucose (Glutose) 15 gm Q15M PRN PO DECREASED GLUCOSE; Start 07/25/17 at 10:30 Glucose (Glutose) 22.5 gm Q15M PRN PO DECREASED GLUCOSE; Start 07/25/17 at 10: 30 Dextrose (D50w Syringe) 25 ml Q15M PRN IV DECREASED GLUCOSE; Start 07/25/17 at 10:30 Dextrose (D50w Syringe) 50 ml Q15M PRN IV DECREASED GLUCOSE; Start 07/25/17 at 10:30 Glucagon (Glucagen) 1 mg Q15M PRN IM DECREASED GLUCOSE; Start 07/25/17 at 10:30 Glucose (Glutose) 15 gm Q15M PRN BUCCAL DECREASED GLUCOSE; Start 07/25/17 at 10 :30 Nystatin 1 applic 1 applic BID TOP Last administered on 07/29/17 20:27; Admin Dose 1 APPLIC; Start 07/25/17 at 13:00 Norepinephrine/ Dextrose (Levophed/D5W) 500 ml @ 0 mls/hr TITRATE IV Last administered on 07/29/17 20:41; Admin Dose 15 MLS/HR; Start 07/25/17 at 17:30 IV Flush 10 ml 10 ml PRN PRN IV IV PROTOCOL; Start 07/25/17 at 17:30 Propofol 100 ml @ 3.327 mls/ hr Q12H IV Last administered on 07/26/17 08:42; Admin Dose 9.969 MLS/HR; Start 07/25/17 at 22:00 Midazolam HCl 50 ml @ 1 mls/hr TITRATE IV Last administered on 07/28/17 17:09 ; Admin Dose 3 MLS/HR; Start 07/26/17 at 10:30 Fentanyl 100 ml @ 2.5 mls/hr TITRATE IV Last administered on 07/29/17 02:08; Admin Dose 6 MLS/HR; Start 07/26/17 at 10:30 Vasopressin 60 unit/Dextrose 60 ml @ 1.2 mls/hr Q12H IV Last administered on 07/29/17 07:07; Admin Dose 0.6 MLS/HR; Start 07/26/17 at 13:00 Epinephrine/ Sodium Chloride (EPINEPHrine/NS) 250 ml @ 0 mls/hr TITRATE IV Last administered on 07/28/17 15:59; Admin Dose 22.5 MLS/HR; Start 07/26/17 at 14:30 Acetaminophen 650 mg 650 mg Q6H PRN NGT PAIN AND OR ELEVATED TEMP Last administered on 07/28/17 22:17; Admin Dose 650 MG; Start 07/27/17 at 20:30 Sodium Chloride (1/2 NS) 1,000 ml @ 20 mls/hr Q24H IV Last administered on 09:06; Admin Dose 20 MLS/HR; Start 07/28/17 at 08:00 Hydrocortisone (Solu-Cortef) 100 mg Q8 IV Last administered on 07/30/17 06:07 ; Admin Dose 100 MG; Start 07/28/17 at 15:00 Pantoprazole 40 mg 40 mg DAILY@06 IV Last administered on 07/30/17 06:07; Admin Dose 40 MG; Start 07/29/17 at 06:00 Meropenem/Sodium Chloride 50 ml @ 100 mls/hr Q12 IVPB Last administered on 20:27; Admin Dose 100 MLS/HR; Start 07/29/17 at 11:30 Vancomycin HCl 1.5 gm/Sodium Chloride 250 ml @ 83.333 mls/ hr Q24H IVPB ; Start 07/30/17 at 14:30 Dopamine HCl/ Dextrose 250 ml @ 8.318 mls/ hr TITRATE IV Last administered on 07/29/17 20:31; Admin Dose 20.796 MLS/HR; Start 07/29/17 at 19:30 GRACE GRANDE MD Jul 30, 2017 08:12
[2017-07-30] MEDS: MEROPENEM 500MG/50 ML (PMX) 50 ML IVPB SCH ×2 (08:15→21:13)
[2017-07-30] MEDS: SOD CHLORIDE 0.45% 1,000 ML IV SCH (08:15)
[2017-07-30] MEDS: BALSAM PERU/CASTOR OIL 60 GM TUBE TOP SCH ×2 (08:29→21:14)
[2017-07-30] MEDS: NYSTATIN 30 GM POWDER BTL TOP SCH ×2 (08:30→21:14)
--- NOTE | 2017-07-30 08:44 | HKNOTE ---
DATE OF SERVICE: 07/29/2017 HISTORY OF PRESENT ILLNESS: The patient is a 71-year-old lady admitted with multiple medical problems in the form of septic shock, hypotension, lack of communication who was admitted for underlying TIA versus stroke in which I ordered for her MRI. The patient could not have it because of medical status. CURRENT MEDICATIONS: Includes: 1. Protonix 40 mg once a day. 2. Tylenol 650 every 6 hours. 3. Reglan 30 mg daily. 4. Versed titrated as needed. PHYSICAL EXAMINATION: GENERAL: The patient does not follow any commands. Looks confused. GAS LINE INSTALLER: CRANIAL NERVES: Cranial nerve II: Pupils equal on both sides, reactive to light. Cranial nerves III, IV and : Extraocular muscles intact. Cranial nerve V: Equal sensation to face. Cranial nerve VII: Symmetrical face. Cranial nerve VIII through XI: Could not assess. Motor exam: . Sensation and coordination: Could not assess. HEART: Regular rate and rhythm. LUNGS: Equal breath sounds. ABDOMEN: Soft, nondistended, nontender. ASSESSMENT AND PLAN: 1. The patient is [id number] with acute encephalopathy, probably secondary to toxic metabolic encephalopathy. 2. Status post septic shock with severe hypotension, we will place on IV pressor drip. 3. Thrombocytopenia. We will place the patient on platelet transfusion. 4. We will keep the patient on deep venous thrombosis prophylaxis and decubitus ulcer prophylaxis for now. 5. Suspected underlying stroke in which the patient did not have the MRI done yet. EEG done revealed generalized slowing consistent with underlying encephalopathy. No epileptiform discharge or seizure activity recorded. Dictated By: Wili Clark MD /[email or web address]/carlos /Document#: [id number]
[2017-07-30] MEDS ORDERED: BUMETANIDE 12 MG in DEXTROSE 5% 72 ML IV ONE (09:30)
--- NOTE | 2017-07-30 09:49 | RADRPT ---
PROCEDURE: XR Chest. CLINICAL INDICATION: Pneumonia, CHF TECHNIQUE: AP Portable chest. COMPARISON: 07/29/2017 FINDINGS: There is artifact over the lung apices. ET tube, NG tube and left PICC line are unchanged. The cardiomediastinal silhouette is enlarged. The aortic arch is calcified. Mild interval decrease b ilateral interstitial densities/ edema. Retrocardiac opacity is seen. The left hemidiaphragm and cos tophrenic angle obscured. No pneumothorax is seen. The osseous structures are intact. IMPRESSION: ET tube, NG tube and left PICC line in place. Interval decreased edema. Left basilar infiltrate or atelectasis and probable small pleural effusion. Physician Magen Date Time Electronically viewed and signed by Physician Magen on 07/30/2017 09:49 CS/
[2017-07-30] MEDS: PROPOFOL 100 ML IV SCH ×2 (10:00→22:00)
[2017-07-30] MEDS ORDERED: LEVOFLOXACIN 750MG/D5W (PMX) 150 ML IVPB SCH (10:00)
[2017-07-30] MEDS: FLUCONAZOLE 200 MG/NS (PMX) 100 ML IVPB SCH (11:18)
--- NOTE | 2017-07-30 11:33 | CONS ---
Date/Time of Note Date/Time of Note DATE: 07/30/17 TIME: 11:31 Consult Date/Type/Reason Admit Date/Time Jul 24, 2017 at 11:53 Initial Consult Date 07/25/17 Type of Consultation: Pulmonary Subjective Remains unresponsive on mechanical ventilation. No sedation. Continues low- dose dopamine for hemodynamic support. Objective Vital Signs Date Time Temp Pulse Resp B/P Pulse Ox O2 Delivery O2 Flow Rate FiO2 07/30/17 09:45 54 26 96/47 97 Mechanical Ventilator 07/30/17 07:51 50 07/30/17 07:30 98.7 Intake and Output 07/29/17 07/29/17 07/30/17 15:00 23:00 07:00 Intake Total 656.25 ml 897.00 ml 261.22 ml Output Total 385 ml 1275 ml 1200 ml Balance 271.25 ml -378.00 ml -938.78 ml Exam PHYSICAL EXAMINATION: GENERAL APPEARANCE: Elderly lady on mechanical ventilation appears comfortable at rest. VITAL SIGNS: NECK: Supple. No JVD. HEART: S1, S2. No added sounds or murmurs. CHEST: Diminished air entry. Bilateral rhonchi. ABDOMEN: Soft, nontender. No guarding or rebound. EXTREMITIES: No cyanosis, clubbing, edema +2 NEUROLOGIC: Generalized weakness. Results/Medications Result Diagram: 07/30/17 0430 07/30/17 0430 Results 24 hrs Laboratory Tests Test 07/29/17 13:15 07/29/17 14:00 07/29/17 17:30 07/29/17 19:39 Bedside Glucose 142 134 Blood Gas Specimen Source Blood arterial Arterial Blood Date Drawn 07/29/2017 2:00:02 PM Arterial Blood pH (Temp corrected) 7.306 L Arterial Blood pCO2 (Temp correct) 42.5 Arterial Blood pO2 (Temp corrected) 289.5 H Arterial Blood HCO3 20.7 L Arterial Blood Base Excess -5.3 L Arterial Blood Oxygen Saturation 99.5 H Sanjeev Test ACCEPTAB Arterial Blood Gas Puncture Site Right Radial Arterial Blood Carboxyhemoglobin 0.2 Arterial Blood Methemoglobin 0.6 Blood Gas A-a O2 Differential 381.0 H Oxyhemoglobin Percent 98.7 Total Hemoglobin 12.1 Blood Gas Temperature 37.0 Blood Gas Respiration Rate 26.0 Blood Gas Actual Respiration Rate 26 Blood Gas Modality VENT - AC FiO2 100.0 Blood Gas Tidal Volume 500.0 Blood Gas Low PEEP Setting 10.0 Blood Gas Notified Whom JLD Blood Gas Notified Time 07/29/2017 2:08:50 PM Sodium Level 131 L Potassium Level 4.7 Chloride Level 102 Carbon Dioxide Level 20 L Anion Gap 14 Blood Urea Nitrogen 75 H Creatinine 2.09 H Glucose Level 227 #H Calcium Level 7.7 L Magnesium Level 2.1 Test 07/29/17 20:25 07/30/17 01:24 07/30/17 04:30 07/30/17 08:28 Bedside Glucose 118 124 122 119 White Blood Count 14.2 #H Red Blood Count 3.05 L Hemoglobin 10.2 L Hematocrit 29.7 L Mean Corpuscular Volume 97.4 Mean Corpuscular Hemoglobin 33.4 H Mean Corpuscular Hemoglobin Concent 34.3 Red Cell Distribution Width 15.9 H Platelet Count 44 L Mean Platelet Volume 12.2 H Neutrophils % 92.4 H Lymphocytes % 4.0 L Monocytes % 2.4 Eosinophils % 0.0 Basophils % 0.1 Nucleated Red Blood Cells % 0.0 Neutrophils # 13.1 H Lymphocytes # 0.6 L Monocytes # 0.3 Eosinophils # 0.0 Basophils # 0.0 Nucleated Red Blood Cells # 0.0 Erythrocyte Sedimentation Rate 79 H Sodium Level 137 Potassium Level 4.3 Chloride Level 105 Carbon Dioxide Level 21 Anion Gap 15 Blood Urea Nitrogen 80 H Creatinine 2.12 H Glucose Level 132 # Calcium Level 8.0 L Phosphorus Level 5.3 H Magnesium Level 2.2 Total Bilirubin 0.9 Direct Bilirubin 0.40 #H Indirect Bilirubin 0.5 Aspartate Amino Transf (AST/SGOT) 35 Alanine Aminotransferase (ALT/SGPT) 32 Alkaline Phosphatase 250 H Total Protein 5.7 L Albumin 2.9 L Globulin 2.80 Albumin/Globulin Ratio 1.03 Medications Current Medications Morphine Sulfate (morphine) 2 mg Q4H PRN IV back pain Last administered on 07/24t 20:46; Admin Dose 2 MG; Start 07/24/17 at 17:30 Ondansetron HCl (Zofran Inj) 4 mg Q6H PRN IV NAUSEA AND/OR VOMITING; Start at 19:00 Morphine Sulfate 4 mg 4 mg Q4H PRN IV PAIN LEVEL 7-10; Start 07/24/17 at 19:00 Fluconazole (Diflucan 200 Mg/ NS (Pmx)) 100 ml @ 100 mls/hr Q24H IVPB Last administered on 07/30/17 11:18; Admin Dose 100 MLS/HR; Start 07/25/17 at 11:00 Diagnostic Test (Pha) (Accu-Chek) 1 ea 02 XX ; Start 07/26/17 at 02:00 Insulin Aspart (Novolog Insulin Pen) NOVOLOG *MILD* ALGORI... Q4 SC Last administered on 07/29/17 13:17; Admin Dose 1 UNIT; Start 07/25/17 at 13:00 Miscellaneous Information 1 ea NOTE XX ; Start 07/25/17 at 10:30 Glucose (Glutose) 15 gm Q15M PRN PO DECREASED GLUCOSE; Start 07/25/17 at 10:30 Glucose (Glutose) 22.5 gm Q15M PRN PO DECREASED GLUCOSE; Start 07/25/17 at 10: 30 Dextrose (D50w Syringe) 25 ml Q15M PRN IV DECREASED GLUCOSE; Start 07/25/17 at 10:30 Dextrose (D50w Syringe) 50 ml Q15M PRN IV DECREASED GLUCOSE; Start 07/25/17 at 10:30 Glucagon (Glucagen) 1 mg Q15M PRN IM DECREASED GLUCOSE; Start 07/25/17 at 10:30 Glucose (Glutose) 15 gm Q15M PRN BUCCAL DECREASED GLUCOSE; Start 07/25/17 at 10 :30 Nystatin 1 applic 1 applic BID TOP Last administered on 07/30/17 08:30; Admin Dose 1 APPLIC; Start 07/25/17 at 13:00 Norepinephrine/ Dextrose (Levophed/D5W) 500 ml @ 0 mls/hr TITRATE IV Last administered on 07/29/17 20:41; Admin Dose 15 MLS/HR; Start 07/25/17 at 17:30 IV Flush 10 ml 10 ml PRN PRN IV IV PROTOCOL; Start 07/25/17 at 17:30 Propofol 100 ml @ 3.327 mls/ hr Q12H IV Last administered on 07/26/17 08:42; Admin Dose 9.969 MLS/HR; Start 07/25/17 at 22:00 Midazolam HCl 50 ml @ 1 mls/hr TITRATE IV Last administered on 07/28/17 17:09 ; Admin Dose 3 MLS/HR; Start 07/26/17 at 10:30 Fentanyl 100 ml @ 2.5 mls/hr TITRATE IV Last administered on 07/29/17 02:08; Admin Dose 6 MLS/HR; Start 07/26/17 at 10:30 Vasopressin 60 unit/Dextrose 60 ml @ 1.2 mls/hr Q12H IV Last administered on 07/29/17 07:07; Admin Dose 0.6 MLS/HR; Start 07/26/17 at 13:00 Epinephrine/ Sodium Chloride (EPINEPHrine/NS) 250 ml @ 0 mls/hr TITRATE IV Last administered on 07/28/17 15:59; Admin Dose 22.5 MLS/HR; Start 07/26/17 at 14:30 Acetaminophen 650 mg 650 mg Q6H PRN NGT PAIN AND OR ELEVATED TEMP Last administered on 07/28/17 22:17; Admin Dose 650 MG; Start 07/27/17 at 20:30 Sodium Chloride (1/2 NS) 1,000 ml @ 20 mls/hr Q24H IV Last administered on 08:15; Admin Dose 20 MLS/HR; Start 07/28/17 at 08:00 Hydrocortisone (Solu-Cortef) 100 mg Q8 IV Last administered on 07/30/17 06:07 ; Admin Dose 100 MG; Start 07/28/17 at 15:00 Pantoprazole 40 mg 40 mg DAILY@06 IV Last administered on 07/30/17 06:07; Admin Dose 40 MG; Start 07/29/17 at 06:00 Meropenem/Sodium Chloride 50 ml @ 100 mls/hr Q12 IVPB Last administered on 08:15; Admin Dose 100 MLS/HR; Start 07/29/17 at 11:30 Vancomycin HCl 1.5 gm/Sodium Chloride 250 ml @ 83.333 mls/ hr Q24H IVPB ; Start 07/30/17 at 14:30 Dopamine HCl/ Dextrose 250 ml @ 8.318 mls/ hr TITRATE IV Last administered on 07/29/17 20:31; Admin Dose 20.796 MLS/HR; Start 07/29/17 at 19:30 Bumetanide/ Dextrose/Water (Bumex/D5W) 120 ml @ 10 mls/hr Q12H ONCE IV Last administered on 07/30/17t 10:28; Admin Dose 10 MLS/HR; Start 07/30/17 at 09:30; Stop 07/30/17 at 21:29 Assessment/Plan Chief Complaint/Hosp Course Assessment 1. Encephalopathy persistent. Concern for CVA. Consider MRI. 2. Hypoxemic and hypercapnic respiratory failure, continues mechanical ventilation. 3. Status post gram-negative septic shock 4. Thrombocytopenia unclear etiology. Possible DIC. 5. Renal insufficiency likely ATN injury on top of chronic renal insufficiency. Plan 1. Tube feeding if tolerated 2. Continue broad-spectrum antibiotic coverage, Continue vasopressor support. Decrease dopamine as tolerated 3. Consider lumbar puncture neurology recommendations. 4. Continue mechanical ventilation. Unable to wean off mechanical ventilation until neurological status improves. 5. Overall prognosis guarded. Discussed with at bedside yesterday. Critical care time 40 minutes. Discussed with staff. Problems: DIMITRY VILLAVICENCIO MD, [facility] Jul 30, 2017 11:33
[2017-07-30 13:25] LABS: AADO2 Arterial 289.6 mmHg (7.0-24.0); Allen Test ACCEPTAB; Arterial Base Excess -4.3 mmol/L (-3.0-3); Arterial COHb 0.3 % (0.0-3.0); Arterial Fraction of Oxyhgb 96.6 % (93.0-99.0); Arterial HCO3 20.1 mmol/L (22.0-26.0); Arterial MetHb 0.4 % (0.0-1.5); Arterial Total Hemglobin 11.9 g/dl (12.0-18.0); MODE VENT - AC
[2017-07-30] MEDS ORDERED: VANCOMYCIN 1.5 GM in SOD CHLORIDE 0.9% 250 ML IVPB SCH (14:30)
--- NOTE | 2017-07-30 14:47 | PN ---
Date/Time of Note Date/Time of Note DATE: 07/30/17 TIME: 14:42 Assessment/Plan VTE Prophylaxis VTE Prophylaxis Intervention: contraindicated (thrombocytopenia) Lines/Catheters IV Catheter Type (from Nrs): Peripheral IV Urinary Cath still in place: Yes Subjective 24 Hr Interval Summary Free Text/Dictation raad continues on one pressor agent, iv bumex with good urine ouitput, improved sodium, platelets up sl, phosphorus elevated, hgb stable. working dx, ecoli sepsis, arf, vice president supply chain insult etiology not clear, but with severe deficit at this point. condition remains critical, will see if can be weaned from pressors and then from sedation, but seems unlikely to succeedd at this point. unresponsive, some mild upper ext bruising, no purpura she has tissue edema legs and flanks Subjective hx not possible: pt non-verbal, pt critical Exam/Review of Systems Vital Signs Vitals Vital Signs Date Time Temp Pulse Resp B/P Pulse Ox O2 Delivery O2 Flow Rate FiO2 07/30/17 13:30 53 26 84/53 94 Mechanical Ventilator 07/30/17 11:00 98.2 07/30/17 07:51 50 Intake and Output 07/29/17 07/29/17 07/30/17 15:00 23:00 07:00 Intake Total 656.25 ml 897.00 ml 261.22 ml Output Total 385 ml 1275 ml 1200 ml Balance 271.25 ml -378.00 ml -938.78 ml Results Result Diagram: 07/30/17 0430 07/30/17 0430 Results 24 hrs Laboratory Tests Test 07/29/17 17:30 07/29/17 19:39 07/29/17 20:25 07/30/17 01:24 Bedside Glucose 134 118 124 Sodium Level 131 L Potassium Level 4.7 Chloride Level 102 Carbon Dioxide Level 20 L Anion Gap 14 Blood Urea Nitrogen 75 H Creatinine 2.09 H Glucose Level 227 #H Calcium Level 7.7 L Magnesium Level 2.1 Test 07/30/17 04:30 07/30/17 07:00 07/30/17 08:28 White Blood Count 14.2 #H Red Blood Count 3.05 L Hemoglobin 10.2 L Hematocrit 29.7 L Mean Corpuscular Volume 97.4 Mean Corpuscular Hemoglobin 33.4 H Mean Corpuscular Hemoglobin Concent 34.3 Red Cell Distribution Width 15.9 H Platelet Count 44 L Mean Platelet Volume 12.2 H Neutrophils % 92.4 H Lymphocytes % 4.0 L Monocytes % 2.4 Eosinophils % 0.0 Basophils % 0.1 Nucleated Red Blood Cells % 0.0 Neutrophils # 13.1 H Lymphocytes # 0.6 L Monocytes # 0.3 Eosinophils # 0.0 Basophils # 0.0 Nucleated Red Blood Cells # 0.0 Erythrocyte Sedimentation Rate 79 H Sodium Level 137 Potassium Level 4.3 Chloride Level 105 Carbon Dioxide Level 21 Anion Gap 15 Blood Urea Nitrogen 80 H Creatinine 2.12 H Glucose Level 132 # Bedside Glucose 122 119 Calcium Level 8.0 L Phosphorus Level 5.3 H Magnesium Level 2.2 Total Bilirubin 0.9 Direct Bilirubin 0.40 #H Indirect Bilirubin 0.5 Aspartate Amino Transf (AST/SGOT) 35 Alanine Aminotransferase (ALT/SGPT) 32 Alkaline Phosphatase 250 H Total Protein 5.7 L Albumin 2.9 L Globulin 2.80 Albumin/Globulin Ratio 1.03 Blood Gas Specimen Source Blood arterial Arterial Blood Date Drawn 07/30/2017 7:50:00 AM Arterial Blood pH (Temp corrected) 7.378 Arterial Blood pCO2 (Temp correct) 35.0 Arterial Blood pO2 (Temp corrected) 99.7 Arterial Blood HCO3 20.1 L Arterial Blood Base Excess -4.3 L Arterial Blood Oxygen Saturation 97.3 Sanjeev Test ACCEPTAB Arterial Blood Gas Puncture Site Right Radial Arterial Blood Carboxyhemoglobin 0.3 Arterial Blood Methemoglobin 0.4 Blood Gas A-a O2 Differential 289.6 H Oxyhemoglobin Percent 96.6 Total Hemoglobin 11.9 L Blood Gas Temperature 37.0 Blood Gas Respiration Rate 26.0 Blood Gas Actual Respiration Rate 26 Blood Gas Modality VENT - AC FiO2 60.0 Blood Gas Tidal Volume 500.0 Blood Gas Low PEEP Setting 10.0 Blood Gas Notified Whom RT Blood Gas Notified Time 07/30/2017 7:57:00 AM Medications Medications Current Medications Morphine Sulfate (morphine) 2 mg Q4H PRN IV back pain Last administered on 07/24t 20:46; Admin Dose 2 MG; Start 07/24/17 at 17:30 Ondansetron HCl (Zofran Inj) 4 mg Q6H PRN IV NAUSEA AND/OR VOMITING; Start at 19:00 Morphine Sulfate 4 mg 4 mg Q4H PRN IV PAIN LEVEL 7-10; Start 07/24/17 at 19:00 Fluconazole (Diflucan 200 Mg/ NS (Pmx)) 100 ml @ 100 mls/hr Q24H IVPB Last administered on 07/30/17 11:18; Admin Dose 100 MLS/HR; Start 07/25/17 at 11:00 Diagnostic Test (Pha) (Accu-Chek) 1 ea 02 XX ; Start 07/26/17 at 02:00 Insulin Aspart (Novolog Insulin Pen) NOVOLOG *MILD* ALGORI... Q4 SC Last administered on 07/29/17 13:17; Admin Dose 1 UNIT; Start 07/25/17 at 13:00 Miscellaneous Information 1 ea NOTE XX ; Start 07/25/17 at 10:30 Glucose (Glutose) 15 gm Q15M PRN PO DECREASED GLUCOSE; Start 07/25/17 at 10:30 Glucose (Glutose) 22.5 gm Q15M PRN PO DECREASED GLUCOSE; Start 07/25/17 at 10: 30 Dextrose (D50w Syringe) 25 ml Q15M PRN IV DECREASED GLUCOSE; Start 07/25/17 at 10:30 Dextrose (D50w Syringe) 50 ml Q15M PRN IV DECREASED GLUCOSE; Start 07/25/17 at 10:30 Glucagon (Glucagen) 1 mg Q15M PRN IM DECREASED GLUCOSE; Start 07/25/17 at 10:30 Glucose (Glutose) 15 gm Q15M PRN BUCCAL DECREASED GLUCOSE; Start 07/25/17 at 10 :30 Nystatin 1 applic 1 applic BID TOP Last administered on 07/30/17 08:30; Admin Dose 1 APPLIC; Start 07/25/17 at 13:00 Norepinephrine/ Dextrose (Levophed/D5W) 500 ml @ 0 mls/hr TITRATE IV Last administered on 07/29/17 20:41; Admin Dose 15 MLS/HR; Start 07/25/17 at 17:30 IV Flush 10 ml 10 ml PRN PRN IV IV PROTOCOL; Start 07/25/17 at 17:30 Propofol 100 ml @ 3.327 mls/ hr Q12H IV Last administered on 07/26/17 08:42; Admin Dose 9.969 MLS/HR; Start 07/25/17 at 22:00 Midazolam HCl 50 ml @ 1 mls/hr TITRATE IV Last administered on 07/28/17 17:09 ; Admin Dose 3 MLS/HR; Start 07/26/17 at 10:30 Fentanyl 100 ml @ 2.5 mls/hr TITRATE IV Last administered on 07/29/17 02:08; Admin Dose 6 MLS/HR; Start 07/26/17 at 10:30 Vasopressin 60 unit/Dextrose 60 ml @ 1.2 mls/hr Q12H IV Last administered on 07/29/17 07:07; Admin Dose 0.6 MLS/HR; Start 07/26/17 at 13:00 Epinephrine/ Sodium Chloride (EPINEPHrine/NS) 250 ml @ 0 mls/hr TITRATE IV Last administered on 07/28/17 15:59; Admin Dose 22.5 MLS/HR; Start 07/26/17 at 14:30 Acetaminophen 650 mg 650 mg Q6H PRN NGT PAIN AND OR ELEVATED TEMP Last administered on 07/28/17 22:17; Admin Dose 650 MG; Start 07/27/17 at 20:30 Sodium Chloride (1/2 NS) 1,000 ml @ 20 mls/hr Q24H IV Last administered on 08:15; Admin Dose 20 MLS/HR; Start 07/28/17 at 08:00 Hydrocortisone (Solu-Cortef) 100 mg Q8 IV Last administered on 07/30/17 06:07 ; Admin Dose 100 MG; Start 07/28/17 at 15:00 Pantoprazole 40 mg 40 mg DAILY@06 IV Last administered on 07/30/17 06:07; Admin Dose 40 MG; Start 07/29/17 at 06:00 Meropenem/Sodium Chloride 50 ml @ 100 mls/hr Q12 IVPB Last administered on 08:15; Admin Dose 100 MLS/HR; Start 07/29/17 at 11:30 Dopamine HCl/ Dextrose 250 ml @ 8.318 mls/ hr TITRATE IV Last administered on 07/29/17 20:31; Admin Dose 20.796 MLS/HR; Start 07/29/17 at 19:30 Bumetanide 12 mg/ Dextrose/Water 120 ml @ 10 mls/hr Q12H ONCE IV Last administered on 07/30/17 10:28; Admin Dose 10 MLS/HR; Start 07/30/17 at 09:30; Stop 07/30/17 at 21:29 Vancomycin HCl/ Sodium Chloride (Vancocin/NS) 150 ml @ 100 mls/hr Q24H IVPB ; Start 07/31/17 at 00:00 PIPER SANTANA MD Jul 30, 2017 14:47
--- NOTE | 2017-07-30 16:26 | PN ---
DATE: 07/30/2017 SUBJECTIVE DATA: No events overnight. The patient remains intubated, sedated on the dopamine drip. She had been afebrile for 48 hours. OBJECTIVE DATA: VITAL SIGNS: Temperature 98.7, pulse 64, respirations 26, blood pressure 96/47, saturation 97 on vent. LABORATORY AND DIAGNOSTIC DATA: WBC 14.2, H and H 10.2 and 29.7, platelets 44, neutrophils 92.4, BUN 80, creatinine 2.12. MICROBIOLOGY: Blood and urine culture on admission grew E coli. Repeat blood cultures negative. Sputum culture growing Corynebacterium species. DIAGNOSTICS: Chest x-ray this morning revealed decreased edema, left basilar infiltrate or atelectasis and probable small pleural effusion. INDWELLING: Endotracheal tube, NG tube, left upper extremity PICC line [place]. ANTIMICROBIALS: 1. Vancomycin. 2. Meropenem. 3. Hydrocortisone IV. PHYSICAL EXAMINATION: GENERAL: This is a morbidly obese, elderly woman, who is in no distress. HEENT: Head atraumatic, normocephalic. Sclerae anicteric. Buccal mucosa dry. NECK: Supple. The study neck is obese. CHEST: Rise symmetrical. Breath sounds diminished. HEART: S1, S2. ABDOMEN: Soft, bowel sounds present. EXTREMITIES: Without cyanosis, bilateral lower extremities edema with chronic venous stasis and left lower extremity erythema below her knee. ASSESSMENT: 1. Severe sepsis with shock. 2. Escherichia coli urinary tract infection with bacteremia. 3. Healthcare-associated pneumonia. 4. Left lower extremity cellulitis. 5. Symptomatic bradycardia, on dopamine drip. 6. Morbid obesity. 7. Acute renal failure. 8. Anemia. 9. Thrombocytopenia. PLAN: The patient remains unchanged. Cover with appropriate antimicrobials. WBC tracing down. She is being followed by multiple consultants. Repeat blood cultures negative. Dictated By: Sterling Acuña NP /carmelina/carlos /Document#: [id number]
[2017-07-30] MEDS: VANCOMYCIN 750 MG in SOD CHLORIDE 0.9% 150 ML IVPB SCH (23:57)
[2017-07-31] VITALS (86 sets, daily range): BP systolic 80–135; BP diastolic 42–88; PULSE 39–75; RESP 20–26
[2017-07-31] MEDS: VASOPRESSIN 60 UNIT in DEXTROSE 5% 57 ML IV SCH ×2 (01:00→12:46)
[2017-07-31] MEDS: INSULIN ASPART [NOVOLOG] 3 ML PEN SC SCH ×6 (01:00→21:00)
[2017-07-31] MEDS: ACCU-CHEK XX SCH (02:00)
[2017-07-31] MEDS: DOPamine-D5W 1.6 MG/ML 250 ML IV SCH (04:41)
[2017-07-31 05:19] LABS: ABNORMAL IP MESSAGE 1; BASOPHILS % 0.1 % (0.0-2.0); HEMATOCRIT 30.8 % (37.0-47.0); HEMOGLOBIN 10.9 g/dl (12.0-16.0); LYMPHOCYTES # 0.4 10^3/ul (0.8-2.9); LYMPHOCYTES % 4.7 % (15.0-51.0); MEAN CORPUSCULAR HEMOGLOBIN 32.9 pg (29.0-33.0); MEAN CORPUSCULAR HGB CONC 35.4 g/dl (32.0-37.0); MEAN CORPUSCULAR VOLUME 93.1 fl (82.0-101.0); MEAN PLATELET VOLUME 11.7 fl (7.4-10.4); MONOCYTE # 0.3 10^3/ul (0.3-0.9); NEUTROPHIL # 8.4 10^3/ul (1.6-7.5); NEUTROPHILS % 91.4 % (39.0-77.0); PLATELET COUNT 59 10^3/UL (140-415); RED BLOOD COUNT 3.31 10^6/ul (4.20-5.40); RED CELL DISTRIBUTION WIDTH 14.8 % (11.5-14.5); WHITE BLOOD COUNT 9.2 10^3/ul (4.8-10.8)
[2017-07-31 05:43] LABS: ALBUMIN 2.6 g/dl (3.3-4.9); ALBUMIN/GLOBULIN RATIO 0.81; BILIRUBIN,INDIRECT 0.5 mg/dl (0-1.1); BILIRUBIN,TOTAL 0.5 mg/dl (0.2-1.3); CALCIUM 7.8 mg/dl (8.4-10.2); CREATININE 1.86 mg/dl (0.44-1.00); TOTAL PROTEIN 5.8 g/dl (6.1-8.1)
[2017-07-31 05:53] LABS: POSITIVE DIFF @See below
[2017-07-31] MEDS: HYDROCORTISONE 100 MG INJ IV SCH ×3 (06:26→22:20)
[2017-07-31] MEDS: PANTOPRAZOLE 40 MG INJ IV SCH (06:26)
[2017-07-31 06:37] LABS: POTASSIUM 2.8 mmol/L (3.5-5.1)
[2017-07-31] MEDS ORDERED: POTASSIUM CHLORIDE 250 ML IVPB ONE (07:30)
[2017-07-31] MEDS ORDERED: POTASSIUM CHLORIDE 50 ML IVPB ONE (07:30)
[2017-07-31] MEDS: SOD CHLORIDE 0.45% 1,000 ML IV SCH (08:00)
[2017-07-31] MEDS: MEROPENEM 500MG/50 ML (PMX) 50 ML IVPB SCH ×2 (08:55→22:19)
[2017-07-31] MEDS ORDERED: SOD CHLORIDE 0.9% IV SCH (09:00)
[2017-07-31] MEDS ORDERED: POTASSIUM CHLORIDE IV SCH (09:00)
[2017-07-31] MEDS: NYSTATIN 30 GM POWDER BTL TOP SCH ×2 (09:06→22:19)
[2017-07-31] MEDS: BALSAM PERU/CASTOR OIL 60 GM TUBE TOP SCH ×2 (09:06→22:19)
[2017-07-31] MEDS: PROPOFOL 100 ML IV SCH ×2 (10:00→22:00)
[2017-07-31] MEDS: FLUCONAZOLE 200 MG/NS (PMX) 100 ML IVPB SCH (10:28)
--- NOTE | 2017-07-31 10:55 | CONS ---
Date/Time of Note Date/Time of Note DATE: 07/31/17 TIME: 10:46 Consult Date/Type/Reason Admit Date/Time Jul 24, 2017 at 11:53 Initial Consult Date 07/25/17 Type of Consultation: Pulmonary Subjective Remains minimally responsive on mechanical ventilation. Objective Vital Signs Date Time Temp Pulse Resp B/P Pulse Ox O2 Delivery O2 Flow Rate FiO2 07/31/17 08:18 63 26 99 40 07/31/17 07:45 108/48 07/31/17 07:00 Mechanical Ventilator 07/31/17 04:00 97.6 Intake and Output 07/30/17 07/30/17 07/31/17 15:00 23:00 07:00 Intake Total 398.49 ml 169.795 ml 56.145 ml Output Total 1300 ml 2525 ml 1750 ml Balance -901.51 ml -2355.205 ml -1693.855 ml Exam PHYSICAL EXAMINATION: GENERAL APPEARANCE: Elderly lady on mechanical ventilation appears comfortable at rest. VITAL SIGNS: NECK: Supple. No JVD. HEART: S1, S2. No added sounds or murmurs. CHEST: Diminished air entry. Bilateral rhonchi. ABDOMEN: Soft, nontender. No guarding or rebound. EXTREMITIES: No cyanosis, clubbing, edema +2 NEUROLOGIC: Generalized weakness. Results/Medications Result Diagram: 07/31/17 0455 07/31/17 0455 Results 24 hrs Laboratory Tests Test 07/30/17 17:04 07/30/17 21:15 07/31/17 01:12 07/31/17 04:49 Bedside Glucose 101 113 102 109 Test 07/31/17 04:55 07/31/17 06:25 07/31/17 09:10 White Blood Count 9.2 # Red Blood Count 3.31 L Hemoglobin 10.9 L Hematocrit 30.8 L Mean Corpuscular Volume 93.1 Mean Corpuscular Hemoglobin 32.9 Mean Corpuscular Hemoglobin Concent 35.4 Red Cell Distribution Width 14.8 H Platelet Count 59 #L Mean Platelet Volume 11.7 H Neutrophils % 91.4 H Lymphocytes % 4.7 L Monocytes % 3.0 Eosinophils % 0.0 Basophils % 0.1 Nucleated Red Blood Cells % 0.0 Neutrophils # 8.4 H Lymphocytes # 0.4 L Monocytes # 0.3 Eosinophils # 0.0 Basophils # 0.0 Nucleated Red Blood Cells # 0.0 Sodium Level 138 Potassium Level 2.8 *L Chloride Level 105 Carbon Dioxide Level 26 Anion Gap 10 # Blood Urea Nitrogen 88 H Creatinine 1.86 H Glucose Level 140 Calcium Level 7.8 L Total Bilirubin 0.5 Direct Bilirubin 0.00 # Indirect Bilirubin 0.5 Aspartate Amino Transf (AST/SGOT) 33 Alanine Aminotransferase (ALT/SGPT) 30 Alkaline Phosphatase 226 H Total Protein 5.8 L Albumin 2.6 L Globulin 3.20 Albumin/Globulin Ratio 0.81 Bedside Glucose 127 121 Medications Current Medications Morphine Sulfate (morphine) 2 mg Q4H PRN IV back pain Last administered on 07/24 20:46; Admin Dose 2 MG; Start 07/24/17 at 17:30 Ondansetron HCl (Zofran Inj) 4 mg Q6H PRN IV NAUSEA AND/OR VOMITING; Start at 19:00 Morphine Sulfate 4 mg 4 mg Q4H PRN IV PAIN LEVEL 7-10; Start 07/24/17 at 19:00 Fluconazole (Diflucan 200 Mg/ NS (Pmx)) 100 ml @ 100 mls/hr Q24H IVPB Last administered on 07/31/17 10:28; Admin Dose 100 MLS/HR; Start 07/25/17 at 11:00 Diagnostic Test (Pha) (Accu-Chek) 1 ea 02 XX ; Start 07/26/17 at 02:00 Insulin Aspart (Novolog Insulin Pen) NOVOLOG *MILD* ALGORI... Q4 SC Last administered on 07/29/17 13:17; Admin Dose 1 UNIT; Start 07/25/17 at 13:00 Miscellaneous Information 1 ea NOTE XX ; Start 07/25/17 at 10:30 Glucose (Glutose) 15 gm Q15M PRN PO DECREASED GLUCOSE; Start 07/25/17 at 10:30 Glucose (Glutose) 22.5 gm Q15M PRN PO DECREASED GLUCOSE; Start 07/25/17 at 10: 30 Dextrose (D50w Syringe) 25 ml Q15M PRN IV DECREASED GLUCOSE; Start 07/25/17 at 10:30 Dextrose (D50w Syringe) 50 ml Q15M PRN IV DECREASED GLUCOSE; Start 07/25/17 at 10:30 Glucagon (Glucagen) 1 mg Q15M PRN IM DECREASED GLUCOSE; Start 07/25/17 at 10:30 Glucose (Glutose) 15 gm Q15M PRN BUCCAL DECREASED GLUCOSE; Start 07/25/17 at 10 :30 Nystatin 1 applic 1 applic BID TOP Last administered on 07/31/17 09:06; Admin Dose 1 APPLIC; Start 07/25/17 at 13:00 Norepinephrine/ Dextrose (Levophed/D5W) 500 ml @ 0 mls/hr TITRATE IV Last administered on 07/29/17 20:41; Admin Dose 15 MLS/HR; Start 07/25/17 at 17:30 IV Flush 10 ml 10 ml PRN PRN IV IV PROTOCOL; Start 07/25/17 at 17:30 Propofol 100 ml @ 3.327 mls/ hr Q12H IV Last administered on 07/26/17 08:42; Admin Dose 9.969 MLS/HR; Start 07/25/17 at 22:00 Midazolam HCl 50 ml @ 1 mls/hr TITRATE IV Last administered on 07/28/17 17:09 ; Admin Dose 3 MLS/HR; Start 07/26/17 at 10:30 Fentanyl 100 ml @ 2.5 mls/hr TITRATE IV Last administered on 07/29/17 02:08; Admin Dose 6 MLS/HR; Start 07/26/17 at 10:30 Vasopressin 60 unit/Dextrose 60 ml @ 1.2 mls/hr Q12H IV Last administered on 07/29/17 07:07; Admin Dose 0.6 MLS/HR; Start 07/26/17 at 13:00 Epinephrine/ Sodium Chloride (EPINEPHrine/NS) 250 ml @ 0 mls/hr TITRATE IV Last administered on 07/28/17 15:59; Admin Dose 22.5 MLS/HR; Start 07/26/17 at 14:30 Acetaminophen 650 mg 650 mg Q6H PRN NGT PAIN AND OR ELEVATED TEMP Last administered on 07/28/17 22:17; Admin Dose 650 MG; Start 07/27/17 at 20:30 Sodium Chloride (1/2 NS) 1,000 ml @ 20 mls/hr Q24H IV Last administered on 08:15; Admin Dose 20 MLS/HR; Start 07/28/17 at 08:00 Hydrocortisone (Solu-Cortef) 100 mg Q8 IV Last administered on 07/31/17 06:26 ; Admin Dose 100 MG; Start 07/28/17 at 15:00 Pantoprazole 40 mg 40 mg DAILY@06 IV Last administered on 07/31/17 06:26; Admin Dose 40 MG; Start 07/29/17 at 06:00 Meropenem/Sodium Chloride 50 ml @ 100 mls/hr Q12 IVPB Last administered on 08:55; Admin Dose 100 MLS/HR; Start 07/29/17 at 11:30 Dopamine HCl/ Dextrose 250 ml @ 8.318 mls/ hr TITRATE IV Last administered on 07/31/17 04:41; Admin Dose 8.318 MLS/HR; Start 07/29/17 at 19:30 Vancomycin HCl 750 mg/Sodium Chloride 150 ml @ 100 mls/hr Q24H IVPB Last administered on 07/30/17 23:57; Admin Dose 100 MLS/HR; Start 07/31/17 at 00:00 Potassium Chloride/Sodium Chloride (KCl/NS) 525 ml @ 131.25 mls/ hr ONCE IV Last administered on 07/31/17 08:55; Admin Dose 131.25 MLS/HR; Start 07/31/17 at 09:00; Stop 07/31/17 at 12:59 Assessment/Plan Chief Complaint/Hosp Course assessment 1. Encephalopathy persistent. Concern for CVA. Consider MRI. 2. Hypoxemic and hypercapnic respiratory failure, continues mechanical ventilation. 3. Status post gram-negative septic shock 4. Thrombocytopenia unclear etiology. Possible DIC. 5. Renal insufficiency likely ATN injury on top of chronic renal insufficiency. Plan 1. Tube feeding if tolerated 2. Continue broad-spectrum antibiotic coverage, Continue vasopressor support. Decrease pressor as tolerated. 3. Consider lumbar puncture neurology recommendations. 4. Continue mechanical ventilation. Unable to wean off mechanical ventilation until neurological status improves. 5. Overall prognosis guarded. One legacy eval. Critical care time 40 minutes. Discussed with staff. Problems: DIMITRY VILLAVICENCIO MD, [facility] Jul 31, 2017 10:55
--- NOTE | 2017-07-31 17:39 | PN ---
Date/Time of Note Date/Time of Note DATE: 07/31/17 TIME: 17:35 Assessment/Plan VTE Prophylaxis VTE Prophylaxis Intervention: anti-embolic stocking VTE Contraindication Reason: thrombocytopenia Lines/Catheters IV Catheter Type (from Nrsg): Peripheral IV Urinary Cath still in place: Yes Subjective 24 Hr Interval Summary Free Text/Dictation neuro status no change, responds only to pain k was low this am, iv potassium given times one, repeat pending bp ok on dopamine, output good, less tissue edema on antibiotics per id and micro findings remains in sinus rhthm, intubated, sedated exam otherwise unchanged Subjective hx not possible: pt non-verbal, pt critical Exam/Review of Systems Vital Signs Vitals Vital Signs Date Time Temp Pulse Resp B/P Pulse Ox O2 Delivery O2 Flow Rate FiO2 07/31/17 16:00 40 07/31/17 16:00 46 07/31/17 15:32 26 94 07/31/17 14:45 98/46 Mechanical Ventilator 07/31/17 12:00 98.1 Intake and Output 07/30/17 07/30/17 07/31/17 15:00 23:00 07:00 Intake Total 398.49 ml 169.795 ml 56.145 ml Output Total 1300 ml 2525 ml 1975 ml Balance -901.51 ml -2355.205 ml -1918.855 ml Results Result Diagram: 07/31/17 0455 07/31/17 0455 Results 24 hrs Laboratory Tests Test 07/30/17 21:15 07/31/17 01:12 07/31/17 04:49 07/31/17 04:55 Bedside Glucose 113 102 109 White Blood Count 9.2 # Red Blood Count 3.31 L Hemoglobin 10.9 L Hematocrit 30.8 L Mean Corpuscular Volume 93.1 Mean Corpuscular Hemoglobin 32.9 Mean Corpuscular Hemoglobin Concent 35.4 Red Cell Distribution Width 14.8 H Platelet Count 59 #L Mean Platelet Volume 11.7 H Neutrophils % 91.4 H Lymphocytes % 4.7 L Monocytes % 3.0 Eosinophils % 0.0 Basophils % 0.1 Nucleated Red Blood Cells % 0.0 Neutrophils # 8.4 H Lymphocytes # 0.4 L Monocytes # 0.3 Eosinophils # 0.0 Basophils # 0.0 Nucleated Red Blood Cells # 0.0 Sodium Level 138 Potassium Level 2.8 *L Chloride Level 105 Carbon Dioxide Level 26 Anion Gap 10 # Blood Urea Nitrogen 88 H Creatinine 1.86 H Glucose Level 140 Calcium Level 7.8 L Total Bilirubin 0.5 Direct Bilirubin 0.00 # Indirect Bilirubin 0.5 Aspartate Amino Transf (AST/SGOT) 33 Alanine Aminotransferase (ALT/SGPT) 30 Alkaline Phosphatase 226 H Total Protein 5.8 L Albumin 2.6 L Globulin 3.20 Albumin/Globulin Ratio 0.81 Test 07/31/17 06:25 07/31/17 09:10 07/31/17 13:32 Bedside Glucose 127 121 102 Medications Medications Current Medications Morphine Sulfate (morphine) 2 mg Q4H PRN IV back pain Last administered on 07/24 20:46; Admin Dose 2 MG; Start 07/24/17 at 17:30 Ondansetron HCl (Zofran Inj) 4 mg Q6H PRN IV NAUSEA AND/OR VOMITING; Start at 19:00 Morphine Sulfate 4 mg 4 mg Q4H PRN IV PAIN LEVEL 7-10; Start 07/24/17 at 19:00 Fluconazole (Diflucan 200 Mg/ NS (Pmx)) 100 ml @ 100 mls/hr Q24H IVPB Last administered on 07/31/17 10:28; Admin Dose 100 MLS/HR; Start 07/25/17 at 11:00 Diagnostic Test (Pha) (Accu-Chek) 1 ea 02 XX ; Start 07/26/17 at 02:00 Insulin Aspart (Novolog Insulin Pen) NOVOLOG *MILD* ALGORI... Q4 SC Last administered on 07/29/17 13:17; Admin Dose 1 UNIT; Start 07/25/17 at 13:00 Miscellaneous Information 1 ea NOTE XX ; Start 07/25/17 at 10:30 Glucose (Glutose) 15 gm Q15M PRN PO DECREASED GLUCOSE; Start 07/25/17 at 10:30 Glucose (Glutose) 22.5 gm Q15M PRN PO DECREASED GLUCOSE; Start 07/25/17 at 10: 30 Dextrose (D50w Syringe) 25 ml Q15M PRN IV DECREASED GLUCOSE; Start 07/25/17 at 10:30 Dextrose (D50w Syringe) 50 ml Q15M PRN IV DECREASED GLUCOSE; Start 07/25/17 at 10:30 Glucagon (Glucagen) 1 mg Q15M PRN IM DECREASED GLUCOSE; Start 07/25/17 at 10:30 Glucose (Glutose) 15 gm Q15M PRN BUCCAL DECREASED GLUCOSE; Start 07/25/17 at 10 :30 Nystatin 1 applic 1 applic BID TOP Last administered on 07/31/17 09:06; Admin Dose 1 APPLIC; Start 07/25/17 at 13:00 Norepinephrine/ Dextrose (Levophed/D5W) 500 ml @ 0 mls/hr TITRATE IV Last administered on 07/29/17 20:41; Admin Dose 15 MLS/HR; Start 07/25/17 at 17:30 IV Flush 10 ml 10 ml PRN PRN IV IV PROTOCOL; Start 07/25/17 at 17:30 Propofol 100 ml @ 3.327 mls/ hr Q12H IV Last administered on 07/26/17 08:42; Admin Dose 9.969 MLS/HR; Start 07/25/17 at 22:00 Midazolam HCl 50 ml @ 1 mls/hr TITRATE IV Last administered on 07/28/17 17:09 ; Admin Dose 3 MLS/HR; Start 07/26/17 at 10:30 Fentanyl 100 ml @ 2.5 mls/hr TITRATE IV Last administered on 07/29/17 02:08; Admin Dose 6 MLS/HR; Start 07/26/17 at 10:30 Vasopressin 60 unit/Dextrose 60 ml @ 1.2 mls/hr Q12H IV Last administered on 07/29/17 07:07; Admin Dose 0.6 MLS/HR; Start 07/26/17 at 13:00 Epinephrine/ Sodium Chloride (EPINEPHrine/NS) 250 ml @ 0 mls/hr TITRATE IV Last administered on 07/28/17 15:59; Admin Dose 22.5 MLS/HR; Start 07/26/17 at 14:30 Acetaminophen 650 mg 650 mg Q6H PRN NGT PAIN AND OR ELEVATED TEMP Last administered on 07/28/17 22:17; Admin Dose 650 MG; Start 07/27/17 at 20:30 Sodium Chloride (1/2 NS) 1,000 ml @ 20 mls/hr Q24H IV Last administered on 08:15; Admin Dose 20 MLS/HR; Start 07/28/17 at 08:00 Hydrocortisone 100 mg 100 mg Q8 IV Last administered on 07/31/17 13:33; Admin Dose 100 MG; Start 07/28/17 at 15:00 Meropenem/Sodium Chloride 50 ml @ 100 mls/hr Q12 IVPB Last administered on 08:55; Admin Dose 100 MLS/HR; Start 07/29/17 at 11:30 Dopamine HCl/ Dextrose 250 ml @ 8.318 mls/ hr TITRATE IV Last administered on 07/31/17 04:41; Admin Dose 8.318 MLS/HR; Start 07/29/17 at 19:30 Vancomycin HCl/ Sodium Chloride (Vancocin/NS) 150 ml @ 100 mls/hr Q24H IVPB Last administered on 07/30/17 23:57; Admin Dose 100 MLS/HR; Start 07/31/17 at 00:00 Famotidine (Pepcid Iv) 20 mg Q12 IV ; Start 08/01/17 at 09:00 PIPER SANTANA MD Jul 31, 2017 17:39
--- NOTE | 2017-07-31 18:13 | CONS ---
Date/Time of Note Date/Time of Note DATE: 07/31/17 TIME: 18:02 Assessment/Plan Assessment/Plan Chief Complaint/Hosp Course 1. Acute Renal Failure , due to ATN and sepsis. Her serum creatinine is lower but BUN is higher . She now has diffuse flank and lower extremity edema. Her blood pressure is low; however, she is being tapered off pressors and is now only on one drip.. She had a good response to Bumex yesterday . with a good urine output and was in negative fluid balance . Her potassium is low today . Will hold Bumex for now . Recheck potassium now and BMP in am . 2. ALOC /encephalopathy, she continues to be unresponsive . 3. Hypotension , on pressors . She is now only on dopamine . 4. E. coli UTI with sepsis on antibiotics . 5. Thrombocytopenia , improving 6. Hyponatremia , corrected with diuretics . 7. pulmonary edema , improving on CXR done yesterday . Problems: Consultation Date/Type/Reason Admit Date/Time Jul 24, 2017 at 11:53 Type of Consultation: Pulmonary 24 HR Interval Summary Free Text/Dictation Patient is in the ICU intubated on a ventilator . She is unresponsive . Subjective hx not possible: pt non-verbal Exam/Review of Systems Vital Signs Vitals Vital Signs Date Time Temp Pulse Resp B/P Pulse Ox O2 Delivery O2 Flow Rate FiO2 07/31/17 16:00 40 07/31/17 16:00 46 07/31/17 15:32 26 94 07/31/17 14:45 98/46 Mechanical Ventilator 07/31/17 12:00 98.1 Intake and Output 07/30/17 07/30/17 07/31/17 15:00 23:00 07:00 Intake Total 398.49 ml 169.795 ml 56.145 ml Output Total 1300 ml 2525 ml 1975 ml Balance -901.51 ml -2355.205 ml -1918.855 ml Exam Constitutional: non-verbal ENMT: intubated Respiratory: clear to auscultation, diminished breath sounds Cardiovascular: edema, regular rate and rhythm Gastrointestinal: soft Extremities: edema Results Result Diagram: 07/31/17 0455 07/31/17 0455 Results 24 hrs Laboratory Tests Test 07/30/17 21:15 07/31/17 01:12 07/31/17 04:49 07/31/17 04:55 Bedside Glucose 113 102 109 White Blood Count 9.2 # Red Blood Count 3.31 L Hemoglobin 10.9 L Hematocrit 30.8 L Mean Corpuscular Volume 93.1 Mean Corpuscular Hemoglobin 32.9 Mean Corpuscular Hemoglobin Concent 35.4 Red Cell Distribution Width 14.8 H Platelet Count 59 #L Mean Platelet Volume 11.7 H Neutrophils % 91.4 H Lymphocytes % 4.7 L Monocytes % 3.0 Eosinophils % 0.0 Basophils % 0.1 Nucleated Red Blood Cells % 0.0 Neutrophils # 8.4 H Lymphocytes # 0.4 L Monocytes # 0.3 Eosinophils # 0.0 Basophils # 0.0 Nucleated Red Blood Cells # 0.0 Sodium Level 138 Potassium Level 2.8 *L Chloride Level 105 Carbon Dioxide Level 26 Anion Gap 10 # Blood Urea Nitrogen 88 H Creatinine 1.86 H Glucose Level 140 Calcium Level 7.8 L Total Bilirubin 0.5 Direct Bilirubin 0.00 # Indirect Bilirubin 0.5 Aspartate Amino Transf (AST/SGOT) 33 Alanine Aminotransferase (ALT/SGPT) 30 Alkaline Phosphatase 226 H Total Protein 5.8 L Albumin 2.6 L Globulin 3.20 Albumin/Globulin Ratio 0.81 Test 07/31/17 06:25 07/31/17 09:10 07/31/17 13:32 07/31/17 17:59 Bedside Glucose 127 121 102 116 Medications Medications Current Medications Morphine Sulfate (morphine) 2 mg Q4H PRN IV back pain Last administered on 07/24 20:46; Admin Dose 2 MG; Start 07/24/17 at 17:30 Ondansetron HCl (Zofran Inj) 4 mg Q6H PRN IV NAUSEA AND/OR VOMITING; Start at 19:00 Morphine Sulfate 4 mg 4 mg Q4H PRN IV PAIN LEVEL 7-10; Start 07/24/17 at 19:00 Fluconazole (Diflucan 200 Mg/ NS (Pmx)) 100 ml @ 100 mls/hr Q24H IVPB Last administered on 07/31/17 10:28; Admin Dose 100 MLS/HR; Start 07/25/17 at 11:00 Diagnostic Test (Pha) (Accu-Chek) 1 ea 02 XX ; Start 07/26/17 at 02:00 Insulin Aspart (Novolog Insulin Pen) NOVOLOG *MILD* ALGORI... Q4 SC Last administered on 07/29/17 13:17; Admin Dose 1 UNIT; Start 07/25/17 at 13:00 Miscellaneous Information 1 ea NOTE XX ; Start 07/25/17 at 10:30 Glucose (Glutose) 15 gm Q15M PRN PO DECREASED GLUCOSE; Start 07/25/17 at 10:30 Glucose (Glutose) 22.5 gm Q15M PRN PO DECREASED GLUCOSE; Start 07/25/17 at 10: 30 Dextrose (D50w Syringe) 25 ml Q15M PRN IV DECREASED GLUCOSE; Start 07/25/17 at 10:30 Dextrose (D50w Syringe) 50 ml Q15M PRN IV DECREASED GLUCOSE; Start 07/25/17 at 10:30 Glucagon (Glucagen) 1 mg Q15M PRN IM DECREASED GLUCOSE; Start 07/25/17 at 10:30 Glucose (Glutose) 15 gm Q15M PRN BUCCAL DECREASED GLUCOSE; Start 07/25/17 at 10 :30 Nystatin 1 applic 1 applic BID TOP Last administered on 07/31/17 09:06; Admin Dose 1 APPLIC; Start 07/25/17 at 13:00 Norepinephrine/ Dextrose (Levophed/D5W) 500 ml @ 0 mls/hr TITRATE IV Last administered on 07/29/17 20:41; Admin Dose 15 MLS/HR; Start 07/25/17 at 17:30 IV Flush 10 ml 10 ml PRN PRN IV IV PROTOCOL; Start 07/25/17 at 17:30 Propofol 100 ml @ 3.327 mls/ hr Q12H IV Last administered on 07/26/17 08:42; Admin Dose 9.969 MLS/HR; Start 07/25/17 at 22:00 Midazolam HCl 50 ml @ 1 mls/hr TITRATE IV Last administered on 07/28/17 17:09 ; Admin Dose 3 MLS/HR; Start 07/26/17 at 10:30 Fentanyl 100 ml @ 2.5 mls/hr TITRATE IV Last administered on 07/29/17 02:08; Admin Dose 6 MLS/HR; Start 07/26/17 at 10:30 Vasopressin 60 unit/Dextrose 60 ml @ 1.2 mls/hr Q12H IV Last administered on 07/29/17 07:07; Admin Dose 0.6 MLS/HR; Start 07/26/17 at 13:00 Epinephrine/ Sodium Chloride (EPINEPHrine/NS) 250 ml @ 0 mls/hr TITRATE IV Last administered on 07/28/17 15:59; Admin Dose 22.5 MLS/HR; Start 07/26/17 at 14:30 Acetaminophen 650 mg 650 mg Q6H PRN NGT PAIN AND OR ELEVATED TEMP Last administered on 07/28/17 22:17; Admin Dose 650 MG; Start 07/27/17 at 20:30 Sodium Chloride (1/2 NS) 1,000 ml @ 20 mls/hr Q24H IV Last administered on 08:15; Admin Dose 20 MLS/HR; Start 07/28/17 at 08:00 Hydrocortisone 100 mg 100 mg Q8 IV Last administered on 07/31/17 13:33; Admin Dose 100 MG; Start 07/28/17 at 15:00 Meropenem/Sodium Chloride 50 ml @ 100 mls/hr Q12 IVPB Last administered on 08:55; Admin Dose 100 MLS/HR; Start 07/29/17 at 11:30 Dopamine HCl/ Dextrose 250 ml @ 8.318 mls/ hr TITRATE IV Last administered on 07/31/17 04:41; Admin Dose 8.318 MLS/HR; Start 07/29/17 at 19:30 Vancomycin HCl/ Sodium Chloride (Vancocin/NS) 150 ml @ 100 mls/hr Q24H IVPB Last administered on 07/30/17 23:57; Admin Dose 100 MLS/HR; Start 07/31/17 at 00:00 Famotidine (Pepcid Iv) 20 mg Q12 IV ; Start 08/01/17 at 09:00 GRACE GRANDE MD Jul 31, 2017 18:13
[2017-08-01] VITALS (82 sets, daily range): BP systolic 82–152; BP diastolic 44–81; PULSE 39–76; RESP 20–26
[2017-08-01] MEDS: VANCOMYCIN 750 MG in SOD CHLORIDE 0.9% 150 ML IVPB SCH (00:55)
[2017-08-01] MEDS: VASOPRESSIN 60 UNIT in DEXTROSE 5% 57 ML IV SCH ×2 (00:56→13:00)
[2017-08-01] MEDS: INSULIN ASPART [NOVOLOG] 3 ML PEN SC SCH ×6 (01:00→21:00)
[2017-08-01] MEDS: ACCU-CHEK XX SCH (01:03)
[2017-08-01] MEDS: HYDROCORTISONE 100 MG INJ IV SCH ×3 (05:04→21:09)
[2017-08-01] MEDS: DOPamine-D5W 1.6 MG/ML 250 ML IV SCH (05:09)
[2017-08-01 05:50] LABS: CALCIUM 7.4 mg/dl (8.4-10.2); CREATININE 1.55 mg/dl (0.44-1.00); POTASSIUM 3.2 mmol/L (3.5-5.1)
[2017-08-01] MEDS ORDERED: ATROPINE 1 MG/10 ML SYRINGE ONE (06:44)
[2017-08-01] MEDS ORDERED: ATROPINE 1 MG/10 ML SYRINGE IV ONE (07:00)
[2017-08-01] MEDS ORDERED: ATROPINE 0.4 MG INJ IV ONE (07:00)
--- NOTE | 2017-08-01 07:12 | PN ---
DATE: 07/31/2017 SUBJECTIVE: No acute events. The patient remains on dopamine drip, intubated and sedated. She is afebrile. VITAL SIGNS: Temperature 97.6, pulse 63, respirations 26, blood pressure 108/48, saturation 99% on 40 FIO2. WBC 9.2, H and H 10.9 and 30.8, platelets 59, BUN 88, creatinine 1.86. MICROBIOLOGY: Endotracheal aspirate grew corynebacterium species. Blood culture and urine culture on admission grew E. coli. Repeat blood cultures since 07/28/2017 negative. INDWELLINGS: Endotracheal tube, NG tube, Cartagena catheter, PICC line placed on 07/25/2017. ANTIMICROBIALS: Vancomycin, meropenem and fluconazole. PHYSICAL EXAMINATION: GENERAL: This is a morbidly obese, well-developed, elderly woman who is intubated, in no distress. HEENT: Head atraumatic, normocephalic. Sclerae anicteric. Buccal mucosa dry. NECK: Supple. CHEST: Rise symmetrical. Breath sounds diminished to bases. HEART: S1, S2. ABDOMEN: Obese, soft. Bowel tones hypoactive. EXTREMITIES: Bilateral lower extremities edema, left lower extremity with erythema below knee. ASSESSMENT: 1. Septic shock. 2. Escherichia coli urinary tract infection with bacteremia. 3. Left lower extremity cellulitis. 4. Acute respiratory failure. 5. Pneumonia. 6. Acute renal failure. PLAN: Patient remains unchanged, on dopamine drip, fevers, resolved. Renal function slowly improvi ng. We will continue her on current antibiotics. Dictated By: ERICKA LEGER [employer] MACHINE OPERATOR for [employer] Conf#: [id number] DID#: [id number]
--- NOTE | 2017-08-01 08:17 | CONS ---
Date/Time of Note Date/Time of Note DATE: 08/01/17 TIME: 08:14 Assessment/Plan Assessment/Plan Additional Assessment/Plan 1. Acute renal failure sec to sepsis with baseline Scr 0.6 (10/12) 2. Still evid vol overload and will resume bumex after low K corrected. 3. Sepsis, antibiotics noted. 4. Impaired cognition, MRI of the brain ordered. 5. Respiratory failure. Consultation Date/Type/Reason Admit Date/Time Jul 24, 2017 at 11:53 Initial Consult Date 07/25/17 Type of Consultation: Pulmonary 24 HR Interval Summary Subjective hx not possible: other (intubated, responds to name) Exam/Review of Systems Vital Signs Vitals Vital Signs Date Time Temp Pulse Resp B/P Pulse Ox O2 Delivery O2 Flow Rate FiO2 08/01/17 07:30 54 26 136/64 98 Mechanical Ventilator 08/01/17 07:00 98.3 08/01/17 05:16 40 Intake and Output 07/31/17 07/31/17 08/01/17 15:00 23:00 07:00 Intake Total 881.512 ml 205.749 ml 78.156 ml Output Total 830 ml 490 ml 600 ml Balance 51.512 ml -284.251 ml -521.844 ml Exam Neck: jvd Respiratory: clear to auscultation, diminished breath sounds Cardiovascular: regular rate and rhythm Gastrointestinal: soft, No distended Extremities: edema (mod leg and sacral edema) Results Result Diagram: 07/31/17 0455 08/01/17 0430 Results 24 hrs Laboratory Tests Test 07/31/17 09:10 07/31/17 13:32 07/31/17 17:59 07/31/17 18:55 Bedside Glucose 121 102 116 Potassium Level 3.3 L Test 07/31/17 22:18 08/01/17 01:02 08/01/17 04:30 08/01/17 05:03 Bedside Glucose 109 111 106 Sodium Level 144 Potassium Level 3.2 L Chloride Level 109 Carbon Dioxide Level 25 Anion Gap 13 Blood Urea Nitrogen 90 H Creatinine 1.55 H Glucose Level 158 Calcium Level 7.4 L Medications Medications Current Medications Morphine Sulfate (morphine) 2 mg Q4H PRN IV back pain Last administered on 07/24t 20:46; Admin Dose 2 MG; Start 07/24/17 at 17:30 Ondansetron HCl (Zofran Inj) 4 mg Q6H PRN IV NAUSEA AND/OR VOMITING; Start at 19:00 Morphine Sulfate 4 mg 4 mg Q4H PRN IV PAIN LEVEL 7-10; Start 07/24/17 at 19:00 Fluconazole (Diflucan 200 Mg/ NS (Pmx)) 100 ml @ 100 mls/hr Q24H IVPB Last administered on 07/31/17 10:28; Admin Dose 100 MLS/HR; Start 07/25/17 at 11:00 Diagnostic Test (Pha) (Accu-Chek) 1 ea 02 XX ; Start 07/26/17 at 02:00 Insulin Aspart (Novolog Insulin Pen) NOVOLOG *MILD* ALGORI... Q4 SC Last administered on 07/29/17 13:17; Admin Dose 1 UNIT; Start 07/25/17 at 13:00 Miscellaneous Information 1 ea NOTE XX ; Start 07/25/17 at 10:30 Glucose (Glutose) 15 gm Q15M PRN PO DECREASED GLUCOSE; Start 07/25/17 at 10:30 Glucose (Glutose) 22.5 gm Q15M PRN PO DECREASED GLUCOSE; Start 07/25/17 at 10: 30 Dextrose (D50w Syringe) 25 ml Q15M PRN IV DECREASED GLUCOSE; Start 07/25/17 at 10:30 Dextrose (D50w Syringe) 50 ml Q15M PRN IV DECREASED GLUCOSE; Start 07/25/17 at 10:30 Glucagon (Glucagen) 1 mg Q15M PRN IM DECREASED GLUCOSE; Start 07/25/17 at 10:30 Glucose (Glutose) 15 gm Q15M PRN BUCCAL DECREASED GLUCOSE; Start 07/25/17 at 10 :30 Nystatin 1 applic 1 applic BID TOP Last administered on 07/31/17 22:19; Admin Dose 1 APPLIC; Start 07/25/17 at 13:00 Norepinephrine/ Dextrose (Levophed/D5W) 500 ml @ 0 mls/hr TITRATE IV Last administered on 07/29/17 20:41; Admin Dose 15 MLS/HR; Start 07/25/17 at 17:30 IV Flush 10 ml 10 ml PRN PRN IV IV PROTOCOL; Start 07/25/17 at 17:30 Propofol 100 ml @ 3.327 mls/ hr Q12H IV Last administered on 07/26/17 08:42; Admin Dose 9.969 MLS/HR; Start 07/25/17 at 22:00 Midazolam HCl 50 ml @ 1 mls/hr TITRATE IV Last administered on 07/28/17 17:09 ; Admin Dose 3 MLS/HR; Start 07/26/17 at 10:30 Fentanyl 100 ml @ 2.5 mls/hr TITRATE IV Last administered on 07/29/17 02:08; Admin Dose 6 MLS/HR; Start 07/26/17 at 10:30 Vasopressin 60 unit/Dextrose 60 ml @ 1.2 mls/hr Q12H IV Last administered on 07/29/17 07:07; Admin Dose 0.6 MLS/HR; Start 07/26/17 at 13:00 Epinephrine/ Sodium Chloride (EPINEPHrine/NS) 250 ml @ 0 mls/hr TITRATE IV Last administered on 07/28/17 15:59; Admin Dose 22.5 MLS/HR; Start 07/26/17 at 14:30 Acetaminophen 650 mg 650 mg Q6H PRN NGT PAIN AND OR ELEVATED TEMP Last administered on 07/28/17 22:17; Admin Dose 650 MG; Start 07/27/17 at 20:30 Sodium Chloride (1/2 NS) 1,000 ml @ 20 mls/hr Q24H IV Last administered on 08:15; Admin Dose 20 MLS/HR; Start 07/28/17 at 08:00 Hydrocortisone 100 mg 100 mg Q8 IV Last administered on 08/01/17 05:04; Admin Dose 100 MG; Start 07/28/17 at 15:00 Meropenem/Sodium Chloride 50 ml @ 100 mls/hr Q12 IVPB Last administered on 22:19; Admin Dose 100 MLS/HR; Start 07/29/17 at 11:30 Dopamine HCl/ Dextrose 250 ml @ 8.318 mls/ hr TITRATE IV Last administered on 08/01/17 05:09; Admin Dose 8.318 MLS/HR; Start 07/29/17 at 19:30 Vancomycin HCl/ Sodium Chloride (Vancocin/NS) 150 ml @ 100 mls/hr Q24H IVPB Last administered on 08/01/17 00:55; Admin Dose 100 MLS/HR; Start 07/31/17 at 00:00 Famotidine (Pepcid Iv) 20 mg Q12 IV ; Start 08/01/17 at 09:00 MELVA SHANNON MD Aug 01, 2017 08:17
[2017-08-01 08:47] LABS: MAGNESIUM 2.2 mg/dl (1.7-2.5); PHOSPHORUS 4.5 mg/dl (2.5-4.9)
[2017-08-01] MEDS: SOD CHLORIDE 0.45% 1,000 ML IV SCH (09:07)
[2017-08-01] MEDS: MEROPENEM 500MG/50 ML (PMX) 50 ML IVPB SCH ×2 (09:08→21:09)
[2017-08-01] MEDS: NYSTATIN 30 GM POWDER BTL TOP SCH ×2 (09:09→21:10)
[2017-08-01] MEDS: BALSAM PERU/CASTOR OIL 60 GM TUBE TOP SCH ×2 (09:09→21:10)
[2017-08-01] MEDS: POTASSIUM CHLORIDE 50 ML IVPB SCH ×4 (09:09→18:21)
--- NOTE | 2017-08-01 09:15 | RADRPT ---
Vent Rate: 62 bpm RR Interval: 0 msec NE Interval: 166 msec QRS Duration: 104 msec QT Interval: 462 msec QTC Interval: 468 msec P-R-T [place]: 42 - -2 - 12 degrees Sinus rhythm with marked sinus arrhythmia T wave abnormality, consider anterior ischemia Abnormal ECG Electronically Signed By: Hugo Lawler [id number]
[2017-08-01] MEDS: FAMOTIDINE 20 MG INJ IV SCH ×2 (09:21→21:09)
[2017-08-01] MEDS: PROPOFOL 100 ML IV SCH ×2 (09:28→21:10)
[2017-08-01] MEDS ORDERED: BUMETANIDE 12 MG in DEXTROSE 5% 72 ML IV ONE (09:30)
--- NOTE | 2017-08-01 10:19 | CONS ---
Date/Time of Note Date/Time of Note DATE: 08/01/17 TIME: 10:14 Consult Date/Type/Reason Admit Date/Time Jul 24, 2017 at 11:53 Initial Consult Date 07/25/17 Type of Consultation: Pulmonary Subjective No significant changes. Remains on mechanical ventilation. Grimaces to painful stimuli but not following commands. Objective Vital Signs Date Time Temp Pulse Resp B/P Pulse Ox O2 Delivery O2 Flow Rate FiO2 08/01/17 10:00 43 26 145/62 99 Mechanical Ventilator 08/01/17 08:00 40 08/01/17 07:00 98.3 Intake and Output 07/31/17 07/31/17 08/01/17 15:00 23:00 07:00 Intake Total 881.512 ml 205.749 ml 106.474 ml Output Total 830 ml 490 ml 600 ml Balance 51.512 ml -284.251 ml -493.526 ml Exam PHYSICAL EXAMINATION: GENERAL APPEARANCE: Elderly lady on mechanical ventilation appears comfortable at rest. VITAL SIGNS: NECK: Supple. No JVD. HEART: S1, S2. No added sounds or murmurs. CHEST: Diminished air entry. Bilateral rhonchi. ABDOMEN: Soft, nontender. No guarding or rebound. EXTREMITIES: No cyanosis, clubbing, edema +2 NEUROLOGIC: Generalized weakness. Results/Medications Result Diagram: 07/31/17 0455 08/01/17 0430 Results 24 hrs Laboratory Tests Test 07/31/17 13:32 07/31/17 17:59 07/31/17 18:55 07/31/17 22:18 Bedside Glucose 102 116 109 Potassium Level 3.3 L Test 08/01/17 01:02 08/01/17 04:30 08/01/17 05:03 08/01/17 09:03 Bedside Glucose 111 106 109 Sodium Level 144 Potassium Level 3.2 L Chloride Level 109 Carbon Dioxide Level 25 Anion Gap 13 Blood Urea Nitrogen 90 H Creatinine 1.55 H Glucose Level 158 Calcium Level 7.4 L Phosphorus Level 4.5 Magnesium Level 2.2 Medications Current Medications Morphine Sulfate (morphine) 2 mg Q4H PRN IV back pain Last administered on 07/24t 20:46; Admin Dose 2 MG; Start 07/24/17 at 17:30 Ondansetron HCl (Zofran Inj) 4 mg Q6H PRN IV NAUSEA AND/OR VOMITING; Start at 19:00 Morphine Sulfate 4 mg 4 mg Q4H PRN IV PAIN LEVEL 7-10; Start 07/24/17 at 19:00 Fluconazole (Diflucan 200 Mg/ NS (Pmx)) 100 ml @ 100 mls/hr Q24H IVPB Last administered on 07/31/17 10:28; Admin Dose 100 MLS/HR; Start 07/25/17 at 11:00 Diagnostic Test (Pha) (Accu-Chek) 1 ea 02 XX ; Start 07/26/17 at 02:00 Insulin Aspart (Novolog Insulin Pen) NOVOLOG *MILD* ALGORI... Q4 SC Last administered on 07/29/17 13:17; Admin Dose 1 UNIT; Start 07/25/17 at 13:00 Miscellaneous Information 1 ea NOTE XX ; Start 07/25/17 at 10:30 Glucose (Glutose) 15 gm Q15M PRN PO DECREASED GLUCOSE; Start 07/25/17 at 10:30 Glucose (Glutose) 22.5 gm Q15M PRN PO DECREASED GLUCOSE; Start 07/25/17 at 10: 30 Dextrose (D50w Syringe) 25 ml Q15M PRN IV DECREASED GLUCOSE; Start 07/25/17 at 10:30 Dextrose (D50w Syringe) 50 ml Q15M PRN IV DECREASED GLUCOSE; Start 07/25/17 at 10:30 Glucagon (Glucagen) 1 mg Q15M PRN IM DECREASED GLUCOSE; Start 07/25/17 at 10:30 Glucose (Glutose) 15 gm Q15M PRN BUCCAL DECREASED GLUCOSE; Start 07/25/17 at 10 :30 Nystatin 1 applic 1 applic BID TOP Last administered on 08/01/17 09:09; Admin Dose 1 APPLIC; Start 07/25/17 at 13:00 Norepinephrine/ Dextrose (Levophed/D5W) 500 ml @ 0 mls/hr TITRATE IV Last administered on 07/29/17 20:41; Admin Dose 15 MLS/HR; Start 07/25/17 at 17:30 IV Flush 10 ml 10 ml PRN PRN IV IV PROTOCOL; Start 07/25/17 at 17:30 Propofol 100 ml @ 3.327 mls/ hr Q12H IV Last administered on 07/26/17 08:42; Admin Dose 9.969 MLS/HR; Start 07/25/17 at 22:00 Midazolam HCl 50 ml @ 1 mls/hr TITRATE IV Last administered on 07/28/17 17:09 ; Admin Dose 3 MLS/HR; Start 07/26/17 at 10:30 Fentanyl 100 ml @ 2.5 mls/hr TITRATE IV Last administered on 07/29/17 02:08; Admin Dose 6 MLS/HR; Start 07/26/17 at 10:30 Vasopressin 60 unit/Dextrose 60 ml @ 1.2 mls/hr Q12H IV Last administered on 07/29/17 07:07; Admin Dose 0.6 MLS/HR; Start 07/26/17 at 13:00 Epinephrine/ Sodium Chloride (EPINEPHrine/NS) 250 ml @ 0 mls/hr TITRATE IV Last administered on 07/28/17 15:59; Admin Dose 22.5 MLS/HR; Start 07/26/17 at 14:30 Acetaminophen 650 mg 650 mg Q6H PRN NGT PAIN AND OR ELEVATED TEMP Last administered on 07/28/17 22:17; Admin Dose 650 MG; Start 07/27/17 at 20:30 Sodium Chloride (1/2 NS) 1,000 ml @ 20 mls/hr Q24H IV Last administered on 09:07; Admin Dose 20 MLS/HR; Start 07/28/17 at 08:00 Hydrocortisone 100 mg 100 mg Q8 IV Last administered on 08/01/17 05:04; Admin Dose 100 MG; Start 07/28/17 at 15:00 Meropenem/Sodium Chloride 50 ml @ 100 mls/hr Q12 IVPB Last administered on 09:08; Admin Dose 100 MLS/HR; Start 07/29/17 at 11:30 Dopamine HCl/ Dextrose 250 ml @ 8.318 mls/ hr TITRATE IV Last administered on 08/01/17 05:09; Admin Dose 8.318 MLS/HR; Start 07/29/17 at 19:30 Vancomycin HCl/ Sodium Chloride (Vancocin/NS) 150 ml @ 100 mls/hr Q24H IVPB Last administered on 08/01/17 00:55; Admin Dose 100 MLS/HR; Start 07/31/17 at 00:00 Famotidine 20 mg 20 mg Q12 IV Last administered on 08/01/17 09:21; Admin Dose 20 MG; Start 08/01/17 at 09:00 Potassium Chloride 50 ml @ 25 mls/hr Q2H IVPB Last administered on 08/01/17 09 :09; Admin Dose 25 MLS/HR; Start 08/01/17 at 08:30; Stop 08/01/17 at 16:29 Bumetanide/ Dextrose/Water (Bumex/D5W) 120 ml @ 10 mls/hr Q12H ONCE IV ; Start 08/01/17 at 09:30; Stop 08/01/17 at 21:29 Miscellaneous Information (*Rx Drug Level Order Reminder*) VANCOMYCIN TROUGH ON ... ONCE ONCE XX ; Start 08/01/17 at 23:00; Stop 08/01/17 at 23:01 Atropine Sulfate (Atropine (Syringe)) 0.5 mg PRN PRN IV DECREASED HEART RATE; Start 08/01/17 at 10:30; Status UNV Assessment/Plan Chief Complaint/Hosp Course assessment 1. Encephalopathy persistent. Currently not able to be liberated from mechanical ventilation secondary to mentation. 2. Hypoxemic and hypercapnic respiratory failure, continues mechanical ventilation. 3. Status post gram-negative septic shock 4. Thrombocytopenia. 5. Renal insufficiency likely ATN injury on top of chronic renal insufficiency. Plan 1. Tube feeding if tolerated 2. Continue broad-spectrum antibiotic coverage, 3. Neurology evaluation and recommendations. 4. Continue mechanical ventilation. 5. Overall prognosis guarded. Critical care time 40 minutes. Discussed with staff. Problems: DIMITRY VILLAVICENCIO MD, [facility] Aug 01, 2017 10:19
[2017-08-01] MEDS: FLUCONAZOLE 200 MG/NS (PMX) 100 ML IVPB SCH (11:35)
--- NOTE | 2017-08-01 14:38 | PN ---
DATE: 08/01/2017 SUBJECTIVE: No acute changes. The patient remains on dopamine entry. No fevers overnight. She is intubated and sedated. VITAL SIGNS: Temperature 98.3, pulse 43, respirations 26, blood pressure 145/62, saturation 99% on 40 FIO2. LABORATORY DATA: No CBC this morning. BUN 90, creatinine 0.155. INDWELLINGS: Endotracheal tube, NG tube, Cartagena catheter, PICC line placed on 07/25/2017. ANTIMICROBIALS: 1. Vancomycin. 2. Meropenem. 3. Fluconazole. PHYSICAL EXAMINATION: GENERAL: This is a morbidly obese elderly woman who is in no distress. HEENT: Head atraumatic, normocephalic. Sclerae anicteric. Buccal mucosa dry. NECK: Supple, trachea midline. CHEST: Rise symmetrical. Breath sounds diminished to bases. HEART: S1, S2. ABDOMEN: Soft. Bowel tones present, hypoactive. EXTREMITIES: With bilateral edema, left lower extremity erythema below knee. ASSESSMENT: 1. Septic shock, also cardiogenic. 2. Symptomatic bradycardia. 3. Escherichia coli urinary tract infection with bacteremia. Repeat blood cultures negative. 4. Left lower extremity cellulitis. 5. Hepatomegaly with cholelithiasis and biliary ductal dilatation, per ultrasound. 6. Anemia. 7. Thrombocytopenia. 8. Acute renal failure, renal function improving. PLAN: Remains unchanged, still on low dose dopamine, white blood cell count had been tracing down. Renal function slowly improving. She is being followed by multiple consultants. Continue present care, antibiotics. Consider cardiology evaluation. Dictated By: ERICKA LEGER [employer]BAC[employer] BUYER for [employer] Conf#: [id number] DID#: [id number]
--- NOTE | 2017-08-01 21:04 | CONS ---
Date/Time of Note Date/Time of Note DATE: 08/01/17 TIME: 20:58 Assessment/Plan Assessment/Plan Additional Assessment/Plan 1. Encephalopathy persistent. 2. Hypoxemic and hypercapnic respiratory failure 3. Status post gram-negative septic shock 4. Thrombocytopenia. 5. Renal insufficiency likely ATN injury on top of chronic renal insufficiency. 6. Sinus Bradycardia 7. Fluid overload Plan 1. Tube feeding if tolerated 2. Continue broad-spectrum antibiotic coverage, 3. Neurology evaluation and recommendations. 4. Continue mechanical ventilation. 5. Continue pressor support 6. On bumex drip 7. s/p atropine for bradycardia > no recurrence during the day > no pacer necessary for now 8. WIll review 2DEcho 5. Overall prognosis guarded. Consultation Date/Type/Reason Admit Date/Time Jul 24, 2017 at 11:53 Hx of Present Illness The patient's [facility] as the patient is currently intubated. She initially presented with severe back pain as well as evidecne of a UTI and Acute Renal failure. The patient subseqently had resp failure and intubated, currently seen by the pulmonary and renal services. She overnight had severe sinus bradycardia in the high 30s with no advanced heart block and as such, cardiology evluation was requested. Constitutional: poor po, requiring IVF Gastrointestinal: pain Musculoskeletal: back pain Social History Smoking Status: Former smoker Exam/Review of Systems Vital Signs Vitals Vital Signs Date Time Temp Pulse Resp B/P Pulse Ox O2 Delivery O2 Flow Rate FiO2 08/01/17 19:39 58 26 100 40 08/01/17 18:30 116/67 Mechanical Ventilator 08/01/17 17:30 98.3 Intake and Output 07/31/17 07/31/17 08/01/17 15:00 23:00 07:00 Intake Total 881.512 ml 205.749 ml 106.474 ml Output Total 830 ml 490 ml 600 ml Balance 51.512 ml -284.251 ml -493.526 ml Results Result Diagram: 07/31/17 0455 08/01/17 0430 Results 24 hrs Laboratory Tests Test 07/31/17 22:18 08/01/17 01:02 08/01/17 04:30 08/01/17 05:03 Bedside Glucose 109 111 106 Sodium Level 144 Potassium Level 3.2 L Chloride Level 109 Carbon Dioxide Level 25 Anion Gap 13 Blood Urea Nitrogen 90 H Creatinine 1.55 H Glucose Level 158 Calcium Level 7.4 L Phosphorus Level 4.5 Magnesium Level 2.2 Test 08/01/17 09:03 08/01/17 13:15 08/01/17 17:38 Bedside Glucose 109 110 123 Medications Medications Current Medications Morphine Sulfate (morphine) 2 mg Q4H PRN IV back pain Last administered on 07/24 20:46; Admin Dose 2 MG; Start 07/24/17 at 17:30 Ondansetron HCl (Zofran Inj) 4 mg Q6H PRN IV NAUSEA AND/OR VOMITING; Start at 19:00 Morphine Sulfate 4 mg 4 mg Q4H PRN IV PAIN LEVEL 7-10; Start 07/24/17 at 19:00 Fluconazole (Diflucan 200 Mg/ NS (Pmx)) 100 ml @ 100 mls/hr Q24H IVPB Last administered on 08/01/17 11:35; Admin Dose 100 MLS/HR; Start 07/25/17 at 11:00 Diagnostic Test (Pha) (Accu-Chek) 1 ea 02 XX ; Start 07/26/17 at 02:00 Insulin Aspart (Novolog Insulin Pen) NOVOLOG *MILD* ALGORI... Q4 SC Last administered on 07/29/17 13:17; Admin Dose 1 UNIT; Start 07/25/17 at 13:00 Miscellaneous Information 1 ea NOTE XX ; Start 07/25/17 at 10:30 Glucose (Glutose) 15 gm Q15M PRN PO DECREASED GLUCOSE; Start 07/25/17 at 10:30 Glucose (Glutose) 22.5 gm Q15M PRN PO DECREASED GLUCOSE; Start 07/25/17 at 10: 30 Dextrose (D50w Syringe) 25 ml Q15M PRN IV DECREASED GLUCOSE; Start 07/25/17 at 10:30 Dextrose (D50w Syringe) 50 ml Q15M PRN IV DECREASED GLUCOSE; Start 07/25/17 at 10:30 Glucagon (Glucagen) 1 mg Q15M PRN IM DECREASED GLUCOSE; Start 07/25/17 at 10:30 Glucose (Glutose) 15 gm Q15M PRN BUCCAL DECREASED GLUCOSE; Start 07/25/17 at 10 :30 Nystatin 1 applic 1 applic BID TOP Last administered on 08/01/17 09:09; Admin Dose 1 APPLIC; Start 07/25/17 at 13:00 Norepinephrine/ Dextrose (Levophed/D5W) 500 ml @ 0 mls/hr TITRATE IV Last administered on 07/29/17 20:41; Admin Dose 15 MLS/HR; Start 07/25/17 at 17:30 IV Flush 10 ml 10 ml PRN PRN IV IV PROTOCOL; Start 07/25/17 at 17:30 Propofol 100 ml @ 3.327 mls/ hr Q12H IV Last administered on 07/26/17 08:42; Admin Dose 9.969 MLS/HR; Start 07/25/17 at 22:00 Midazolam HCl 50 ml @ 1 mls/hr TITRATE IV Last administered on 07/28/17 17:09 ; Admin Dose 3 MLS/HR; Start 07/26/17 at 10:30 Fentanyl 100 ml @ 2.5 mls/hr TITRATE IV Last administered on 07/29/17 02:08; Admin Dose 6 MLS/HR; Start 07/26/17 at 10:30 Vasopressin 60 unit/Dextrose 60 ml @ 1.2 mls/hr Q12H IV Last administered on 07/29/17 07:07; Admin Dose 0.6 MLS/HR; Start 07/26/17 at 13:00 Epinephrine/ Sodium Chloride (EPINEPHrine/NS) 250 ml @ 0 mls/hr TITRATE IV Last administered on 07/28/17 15:59; Admin Dose 22.5 MLS/HR; Start 07/26/17 at 14:30 Acetaminophen 650 mg 650 mg Q6H PRN NGT PAIN AND OR ELEVATED TEMP Last administered on 07/28/17 22:17; Admin Dose 650 MG; Start 07/27/17 at 20:30 Sodium Chloride (1/2 NS) 1,000 ml @ 20 mls/hr Q24H IV Last administered on 09:07; Admin Dose 20 MLS/HR; Start 07/28/17 at 08:00 Hydrocortisone 100 mg 100 mg Q8 IV Last administered on 08/01/17 14:02; Admin Dose 100 MG; Start 07/28/17 at 15:00 Meropenem/Sodium Chloride 50 ml @ 100 mls/hr Q12 IVPB Last administered on 09:08; Admin Dose 100 MLS/HR; Start 07/29/17 at 11:30 Dopamine HCl/ Dextrose 250 ml @ 8.318 mls/ hr TITRATE IV Last administered on 08/01/17 05:09; Admin Dose 8.318 MLS/HR; Start 07/29/17 at 19:30 Vancomycin HCl/ Sodium Chloride (Vancocin/NS) 150 ml @ 100 mls/hr Q24H IVPB Last administered on 08/01/17 00:55; Admin Dose 100 MLS/HR; Start 07/31/17 at 00:00 Famotidine 20 mg 20 mg Q12 IV Last administered on 08/01/17 09:21; Admin Dose 20 MG; Start 08/01/17 at 09:00 Bumetanide/ Dextrose/Water (Bumex/D5W) 120 ml @ 10 mls/hr Q12H ONCE IV Last administered on 08/01/17 14:01; Admin Dose 10 MLS/HR; Start 08/01/17 at 09:30; Stop 08/01/17 at 21:29 Miscellaneous Information (*Rx Drug Level Order Reminder*) VANCOMYCIN TROUGH ON ... ONCE ONCE XX ; Start 08/01/17 at 23:00; Stop 08/01/17 at 23:01 Atropine Sulfate (Atropine (Syringe)) 0.5 mg PRN PRN IV DECREASED HEART RATE; Start 08/01/17 at 10:30 JENNIE LEY MD Aug 01, 2017 21:04
[2017-08-01] MEDS: POTASSIUM CHLORIDE 50 ML IVPB PRN ×2 (22:33→23:41)
[2017-08-02] VITALS (76 sets, daily range): BP systolic 77–154; BP diastolic 36–115; PULSE 35–94; RESP 16–32
[2017-08-02] MEDS: VASOPRESSIN 60 UNIT in DEXTROSE 5% 57 ML IV SCH ×2 (00:04→13:00)
[2017-08-02] MEDS: POTASSIUM CHLORIDE 50 ML IVPB PRN ×2 (00:59→07:43)
[2017-08-02] MEDS: VANCOMYCIN 750 MG in SOD CHLORIDE 0.9% 150 ML IVPB SCH (00:59)
[2017-08-02] MEDS: INSULIN ASPART [NOVOLOG] 3 ML PEN SC SCH ×6 (01:00→21:00)
[2017-08-02] MEDS: ACCU-CHEK XX SCH (01:06)
[2017-08-02] MEDS: HYDROCORTISONE 100 MG INJ IV SCH ×3 (05:44→22:26)
[2017-08-02 06:08] LABS: BASOPHILS % 0.1 % (0.0-2.0); HEMATOCRIT 32.7 % (37.0-47.0); HEMOGLOBIN 11.8 g/dl (12.0-16.0); LYMPHOCYTES # 0.7 10^3/ul (0.8-2.9); LYMPHOCYTES % 7.8 % (15.0-51.0); MEAN CORPUSCULAR HEMOGLOBIN 34.2 pg (29.0-33.0); MEAN CORPUSCULAR HGB CONC 36.1 g/dl (32.0-37.0); MEAN CORPUSCULAR VOLUME 94.8 fl (82.0-101.0); MEAN PLATELET VOLUME 11.5 fl (7.4-10.4); MONOCYTE # 0.8 10^3/ul (0.3-0.9); MONOCYTES % 8.7 % (0.0-11.0); NEUTROPHIL # 7.7 10^3/ul (1.6-7.5); NEUTROPHILS % 82.5 % (39.0-77.0); PLATELET COUNT 153 10^3/UL (140-415); RED BLOOD COUNT 3.45 10^6/ul (4.20-5.40); RED CELL DISTRIBUTION WIDTH 15.1 % (11.5-14.5); WHITE BLOOD COUNT 9.4 10^3/ul (4.8-10.8)
[2017-08-02 06:37] LABS: CALCIUM 7.8 mg/dl (8.4-10.2); CREATININE 1.45 mg/dl (0.44-1.00); PHOSPHORUS 3.6 mg/dl (2.5-4.9)
[2017-08-02 06:44] LABS: POTASSIUM 2.6 mmol/L (3.5-5.1)
[2017-08-02] MEDS ORDERED: MAGNESIUM SULFATE 1 GM/D5W 100 ML IVPB ONE (07:30)
[2017-08-02] MEDS: SOD CHLORIDE 0.45% 1,000 ML IV SCH (07:43)
--- NOTE | 2017-08-02 08:08 | PN ---
Date/Time of Note Date/Time of Note DATE: 08/02/17 TIME: 08:06 Assessment/Plan VTE Prophylaxis VTE Prophylaxis Intervention: SCD's Lines/Catheters IV Catheter Type (from Nrs): Peripheral IV Urinary Cath still in place: Yes Reason Cath still needed: urinary retention Assessment/Plan Chief Complaint/Hosp Course The patient's history is [facility] as the patient is currently intubated. She initially presented with severe back pain as well as evidecne of a UTI and Acute Renal failure. The patient subseqently had resp failure and intubated, currently seen by the pulmonary and renal services. She overnight had severe sinus bradycardia in the high 30s with no advanced heart block and as such, cardiology evluation was requested. Problems: Assessment/Plan 1. Encephalopathy improved 2. Hypoxemic and hypercapnic respiratory failure 3. Status post gram-negative septic shock 4. Thrombocytopenia. 5. Renal insufficiency likely ATN injury on top of chronic renal insufficiency. 6. Sinus Bradycardia 7. Fluid overload Plan 1. Tube feeding if tolerated 2. Continue broad-spectrum antibiotic coverage, 3. Neurology evaluation and recommendations. 4. Continue mechanical ventilation. 5. Currently on dopamine due to bradycardia during sleep - wean off as discussed with RN 6. s/p bumex drip - excellent diureisis and renal invovled 7. s/p atropine for bradycardia > no recurrence during the day > no pacer necessary for now 8. WIll review 2DEcho Subjective 24 Hr Interval Summary Free Text/Dictation The patient with improvement overnight Exam/Review of Systems Vital Signs Vitals Vital Signs Date Time Temp Pulse Resp B/P Pulse Ox O2 Delivery O2 Flow Rate FiO2 08/02/17 07:11 59 29 99 40 08/02/17 06:15 121/53 08/02/17 04:00 99.0 08/02/17 00:00 Mechanical Ventilator Intake and Output 08/01/17 08/01/17 08/02/17 15:00 23:00 07:00 Intake Total 226.544 ml 134.954 ml 130 ml Output Total 1045 ml 1895 ml 1060 ml Balance -818.456 ml -1760.046 ml -930 ml Results Result Diagram: 08/02/17 0530 08/02/17 0530 Results 24 hrs Laboratory Tests Test 08/01/17 09:03 08/01/17 13:15 08/01/17 17:38 08/01/17 20:59 Bedside Glucose 109 110 123 Potassium Level 3.1 L Test 08/01/17 21:12 08/01/17 23:02 08/02/17 01:06 08/02/17 05:30 Bedside Glucose 137 133 Vancomycin Level Trough 14.8 White Blood Count 9.4 Red Blood Count 3.45 L Hemoglobin 11.8 L Hematocrit 32.7 L Mean Corpuscular Volume 94.8 Mean Corpuscular Hemoglobin 34.2 H Mean Corpuscular Hemoglobin Concent 36.1 Red Cell Distribution Width 15.1 H Platelet Count 153 # Mean Platelet Volume 11.5 H Neutrophils % 82.5 H Lymphocytes % 7.8 L Monocytes % 8.7 Eosinophils % 0.0 Basophils % 0.1 Nucleated Red Blood Cells % 0.0 Neutrophils # 7.7 H Lymphocytes # 0.7 L Monocytes # 0.8 Eosinophils # 0.0 Basophils # 0.0 Nucleated Red Blood Cells # 0.0 Sodium Level 151 H Potassium Level 2.6 *L Chloride Level 113 H Carbon Dioxide Level 30 Anion Gap 11 Blood Urea Nitrogen 85 H Creatinine 1.45 H Glucose Level 140 Calcium Level 7.8 L Phosphorus Level 3.6 Magnesium Level 2.0 Test 08/02/17 05:43 Bedside Glucose 136 Medications Medications Current Medications Morphine Sulfate (morphine) 2 mg Q4H PRN IV back pain Last administered on 07/24 20:46; Admin Dose 2 MG; Start 07/24/17 at 17:30 Ondansetron HCl (Zofran Inj) 4 mg Q6H PRN IV NAUSEA AND/OR VOMITING; Start at 19:00 Morphine Sulfate 4 mg 4 mg Q4H PRN IV PAIN LEVEL 7-10; Start 07/24/17 at 19:00 Fluconazole (Diflucan 200 Mg/ NS (Pmx)) 100 ml @ 100 mls/hr Q24H IVPB Last administered on 08/01/17 11:35; Admin Dose 100 MLS/HR; Start 07/25/17 at 11:00 Diagnostic Test (Pha) (Accu-Chek) 1 ea 02 XX Last administered on 08/02/17 01: 06; Admin Dose 1 EA; Start 07/26/17 at 02:00 Insulin Aspart (Novolog Insulin Pen) NOVOLOG *MILD* ALGORI... Q4 SC Last administered on 07/29/17 13:17; Admin Dose 1 UNIT; Start 07/25/17 at 13:00 Miscellaneous Information 1 ea NOTE XX ; Start 07/25/17 at 10:30 Glucose (Glutose) 15 gm Q15M PRN PO DECREASED GLUCOSE; Start 07/25/17 at 10:30 Glucose (Glutose) 22.5 gm Q15M PRN PO DECREASED GLUCOSE; Start 07/25/17 at 10: 30 Dextrose (D50w Syringe) 25 ml Q15M PRN IV DECREASED GLUCOSE; Start 07/25/17 at 10:30 Dextrose (D50w Syringe) 50 ml Q15M PRN IV DECREASED GLUCOSE; Start 07/25/17 at 10:30 Glucagon (Glucagen) 1 mg Q15M PRN IM DECREASED GLUCOSE; Start 07/25/17 at 10:30 Glucose (Glutose) 15 gm Q15M PRN BUCCAL DECREASED GLUCOSE; Start 07/25/17 at 10 :30 Nystatin 1 applic 1 applic BID TOP Last administered on 08/01/17 21:10; Admin Dose 1 APPLIC; Start 07/25/17 at 13:00 Norepinephrine/ Dextrose (Levophed/D5W) 500 ml @ 0 mls/hr TITRATE IV Last administered on 07/29/17 20:41; Admin Dose 15 MLS/HR; Start 07/25/17 at 17:30 IV Flush 10 ml 10 ml PRN PRN IV IV PROTOCOL; Start 07/25/17 at 17:30 Propofol 100 ml @ 3.327 mls/ hr Q12H IV Last administered on 07/26/17 08:42; Admin Dose 9.969 MLS/HR; Start 07/25/17 at 22:00 Midazolam HCl 50 ml @ 1 mls/hr TITRATE IV Last administered on 07/28/17 17:09 ; Admin Dose 3 MLS/HR; Start 07/26/17 at 10:30 Fentanyl 100 ml @ 2.5 mls/hr TITRATE IV Last administered on 07/29/17 02:08; Admin Dose 6 MLS/HR; Start 07/26/17 at 10:30 Vasopressin 60 unit/Dextrose 60 ml @ 1.2 mls/hr Q12H IV Last administered on 07/29/17 07:07; Admin Dose 0.6 MLS/HR; Start 07/26/17 at 13:00 Epinephrine/ Sodium Chloride (EPINEPHrine/NS) 250 ml @ 0 mls/hr TITRATE IV Last administered on 07/28/17 15:59; Admin Dose 22.5 MLS/HR; Start 07/26/17 at 14:30 Acetaminophen 650 mg 650 mg Q6H PRN NGT PAIN AND OR ELEVATED TEMP Last administered on 07/28/17 22:17; Admin Dose 650 MG; Start 07/27/17 at 20:30 Sodium Chloride (1/2 NS) 1,000 ml @ 20 mls/hr Q24H IV Last administered on 07:43; Admin Dose 20 MLS/HR; Start 07/28/17 at 08:00 Hydrocortisone 100 mg 100 mg Q8 IV Last administered on 08/02/17 05:44; Admin Dose 100 MG; Start 07/28/17 at 15:00 Meropenem/Sodium Chloride 50 ml @ 100 mls/hr Q12 IVPB Last administered on 21:09; Admin Dose 100 MLS/HR; Start 07/29/17 at 11:30 Dopamine HCl/ Dextrose 250 ml @ 8.318 mls/ hr TITRATE IV Last administered on 08/01/17 05:09; Admin Dose 8.318 MLS/HR; Start 07/29/17 at 19:30 Vancomycin HCl/ Sodium Chloride (Vancocin/NS) 150 ml @ 100 mls/hr Q24H IVPB Last administered on 08/02/17 00:59; Admin Dose 100 MLS/HR; Start 07/31/17 at 00:00 Famotidine (Pepcid Iv) 20 mg Q12 IV Last administered on 08/01/17 21:09; Admin Dose 20 MG; Start 08/01/17 at 09:00 Atropine Sulfate 0.5 mg 0.5 mg PRN PRN IV DECREASED HEART RATE; Start 08/01/17 at 10:30 Magnesium Sulfate/ Dextrose (Magnesium Sulfate 1 Gm/D5W) 100 ml @ 100 mls/hr ONCE ONCE IVPB Last administered on 08/02/17 07:43; Admin Dose 100 MLS/HR; Start 08/02/17 at 07:30; Stop 08/02/17 at 08:29 JENNIE LEY MD Aug 02, 2017 08:08
--- NOTE | 2017-08-02 08:11 | PN ---
Date/Time of Note Date/Time of Note DATE: 08/02/17 TIME: 08:10 Assessment/Plan VTE Prophylaxis VTE Prophylaxis Intervention: SCD's Lines/Catheters IV Catheter Type (from Nrs): Peripheral IV Urinary Cath still in place: Yes Reason Cath still needed: urinary retention Assessment/Plan Chief Complaint/Hosp Course The patient's history is [facility] as the patient is currently intubated. She initially presented with severe back pain as well as evidecne of a UTI and Acute Renal failure. The patient subseqently had resp failure and intubated, currently seen by the pulmonary and renal services. She overnight had severe sinus bradycardia in the high 30s with no advanced heart block and as such, cardiology evluation was requested. Problems: Assessment/Plan 1. Encephalopathy improving 2. Hypoxemic and hypercapnic respiratory failure 3. Status post gram-negative septic shock 4. Thrombocytopenia. 5. Renal insufficiency likely ATN injury on top of chronic renal insufficiency. 6. Sinus Bradycardia 7. Fluid overload 8.s s/p hypokalemia Plan 1. Tube feeding if tolerated 2. Continue broad-spectrum antibiotic coverage, 3. Neurology evaluation and recommendations. 4. Continue mechanical ventilation. 5. wean off dopamine as bradycardia only during sleep 6. s/p bumex drip - renal involved 7. s/p atropine for bradycardia > no recurrence yesterday > no pacer necessary for now 8. WIll review 2DEcho 5. Rx potassium protocol Subjective 24 Hr Interval Summary Free Text/Dictation The patient kuhn improved overnight Exam/Review of Systems Vital Signs Vitals Vital Signs Date Time Temp Pulse Resp B/P Pulse Ox O2 Delivery O2 Flow Rate FiO2 08/02/17 07:11 59 29 99 40 08/02/17 06:15 121/53 08/02/17 04:00 99.0 08/02/17 00:00 Mechanical Ventilator Intake and Output 08/01/17 08/01/17 08/02/17 15:00 23:00 07:00 Intake Total 226.544 ml 134.954 ml 130 ml Output Total 1045 ml 1895 ml 1060 ml Balance -818.456 ml -1760.046 ml -930 ml Results Result Diagram: 08/02/17 0530 08/02/17 0530 Results 24 hrs Laboratory Tests Test 08/01/17 09:03 08/01/17 13:15 08/01/17 17:38 08/01/17 20:59 Bedside Glucose 109 110 123 Potassium Level 3.1 L Test 08/01/17 21:12 08/01/17 23:02 08/02/17 01:06 08/02/17 05:30 Bedside Glucose 137 133 Vancomycin Level Trough 14.8 White Blood Count 9.4 Red Blood Count 3.45 L Hemoglobin 11.8 L Hematocrit 32.7 L Mean Corpuscular Volume 94.8 Mean Corpuscular Hemoglobin 34.2 H Mean Corpuscular Hemoglobin Concent 36.1 Red Cell Distribution Width 15.1 H Platelet Count 153 # Mean Platelet Volume 11.5 H Neutrophils % 82.5 H Lymphocytes % 7.8 L Monocytes % 8.7 Eosinophils % 0.0 Basophils % 0.1 Nucleated Red Blood Cells % 0.0 Neutrophils # 7.7 H Lymphocytes # 0.7 L Monocytes # 0.8 Eosinophils # 0.0 Basophils # 0.0 Nucleated Red Blood Cells # 0.0 Sodium Level 151 H Potassium Level 2.6 *L Chloride Level 113 H Carbon Dioxide Level 30 Anion Gap 11 Blood Urea Nitrogen 85 H Creatinine 1.45 H Glucose Level 140 Calcium Level 7.8 L Phosphorus Level 3.6 Magnesium Level 2.0 Test 08/02/17 05:43 Bedside Glucose 136 Medications Medications Current Medications Morphine Sulfate (morphine) 2 mg Q4H PRN IV back pain Last administered on 07/24 20:46; Admin Dose 2 MG; Start 07/24/17 at 17:30 Ondansetron HCl (Zofran Inj) 4 mg Q6H PRN IV NAUSEA AND/OR VOMITING; Start at 19:00 Morphine Sulfate 4 mg 4 mg Q4H PRN IV PAIN LEVEL 7-10; Start 07/24/17 at 19:00 Fluconazole (Diflucan 200 Mg/ NS (Pmx)) 100 ml @ 100 mls/hr Q24H IVPB Last administered on 08/01/17 11:35; Admin Dose 100 MLS/HR; Start 07/25/17 at 11:00 Diagnostic Test (Pha) (Accu-Chek) 1 ea 02 XX Last administered on 08/02/17 01: 06; Admin Dose 1 EA; Start 07/26/17 at 02:00 Insulin Aspart (Novolog Insulin Pen) NOVOLOG *MILD* ALGORI... Q4 SC Last administered on 07/29/17 13:17; Admin Dose 1 UNIT; Start 07/25/17 at 13:00 Miscellaneous Information 1 ea NOTE XX ; Start 07/25/17 at 10:30 Glucose (Glutose) 15 gm Q15M PRN PO DECREASED GLUCOSE; Start 07/25/17 at 10:30 Glucose (Glutose) 22.5 gm Q15M PRN PO DECREASED GLUCOSE; Start 07/25/17 at 10: 30 Dextrose (D50w Syringe) 25 ml Q15M PRN IV DECREASED GLUCOSE; Start 07/25/17 at 10:30 Dextrose (D50w Syringe) 50 ml Q15M PRN IV DECREASED GLUCOSE; Start 07/25/17 at 10:30 Glucagon (Glucagen) 1 mg Q15M PRN IM DECREASED GLUCOSE; Start 07/25/17 at 10:30 Glucose (Glutose) 15 gm Q15M PRN BUCCAL DECREASED GLUCOSE; Start 07/25/17 at 10 :30 Nystatin 1 applic 1 applic BID TOP Last administered on 08/01/17 21:10; Admin Dose 1 APPLIC; Start 07/25/17 at 13:00 Norepinephrine/ Dextrose (Levophed/D5W) 500 ml @ 0 mls/hr TITRATE IV Last administered on 07/29/17 20:41; Admin Dose 15 MLS/HR; Start 07/25/17 at 17:30 IV Flush 10 ml 10 ml PRN PRN IV IV PROTOCOL; Start 07/25/17 at 17:30 Propofol 100 ml @ 3.327 mls/ hr Q12H IV Last administered on 07/26/17 08:42; Admin Dose 9.969 MLS/HR; Start 07/25/17 at 22:00 Midazolam HCl 50 ml @ 1 mls/hr TITRATE IV Last administered on 07/28/17 17:09 ; Admin Dose 3 MLS/HR; Start 07/26/17 at 10:30 Fentanyl 100 ml @ 2.5 mls/hr TITRATE IV Last administered on 07/29/17 02:08; Admin Dose 6 MLS/HR; Start 07/26/17 at 10:30 Vasopressin 60 unit/Dextrose 60 ml @ 1.2 mls/hr Q12H IV Last administered on 07/29/17 07:07; Admin Dose 0.6 MLS/HR; Start 07/26/17 at 13:00 Epinephrine/ Sodium Chloride (EPINEPHrine/NS) 250 ml @ 0 mls/hr TITRATE IV Last administered on 07/28/17 15:59; Admin Dose 22.5 MLS/HR; Start 07/26/17 at 14:30 Acetaminophen 650 mg 650 mg Q6H PRN NGT PAIN AND OR ELEVATED TEMP Last administered on 07/28/17 22:17; Admin Dose 650 MG; Start 07/27/17 at 20:30 Sodium Chloride (1/2 NS) 1,000 ml @ 20 mls/hr Q24H IV Last administered on 07:43; Admin Dose 20 MLS/HR; Start 07/28/17 at 08:00 Hydrocortisone 100 mg 100 mg Q8 IV Last administered on 08/02/17 05:44; Admin Dose 100 MG; Start 07/28/17 at 15:00 Meropenem/Sodium Chloride 50 ml @ 100 mls/hr Q12 IVPB Last administered on 21:09; Admin Dose 100 MLS/HR; Start 07/29/17 at 11:30 Dopamine HCl/ Dextrose 250 ml @ 8.318 mls/ hr TITRATE IV Last administered on 08/01/17 05:09; Admin Dose 8.318 MLS/HR; Start 07/29/17 at 19:30 Vancomycin HCl/ Sodium Chloride (Vancocin/NS) 150 ml @ 100 mls/hr Q24H IVPB Last administered on 08/02/17 00:59; Admin Dose 100 MLS/HR; Start 07/31/17 at 00:00 Famotidine (Pepcid Iv) 20 mg Q12 IV Last administered on 08/01/17 21:09; Admin Dose 20 MG; Start 08/01/17 at 09:00 Atropine Sulfate 0.5 mg 0.5 mg PRN PRN IV DECREASED HEART RATE; Start 08/01/17 at 10:30 Magnesium Sulfate/ Dextrose (Magnesium Sulfate 1 Gm/D5W) 100 ml @ 100 mls/hr ONCE ONCE IVPB Last administered on 08/02/17 07:43; Admin Dose 100 MLS/HR; Start 08/02/17 at 07:30; Stop 08/02/17 at 08:29 JENNIE LEY MD Aug 02, 2017 08:11
--- NOTE | 2017-08-02 08:14 | PN ---
Date/Time of Note Date/Time of Note DATE: 08/02/17 TIME: 08:09 Assessment/Plan VTE Prophylaxis VTE Prophylaxis Intervention: contraindicated (thrombocytopenia) Lines/Catheters IV Catheter Type (from Nrs): Peripheral IV Urinary Cath still in place: Yes Subjective 24 Hr Interval Summary Free Text/Dictation she is somewhat responsive, opens eyes, nods. pupils equal, poss sl nystagmus. still significant tissue edema, continues with diuresis, k sl low na up consistent with increased free water clearance. vs ok, hr as noted, no skin breakdown or purpura. sl inc in platelets, cbc stable. cant maribell t.f., will hold for now in view of improving neuro status, might codnsider decreasing sedation Subjective hx not possible: pt non-verbal (intubated) Exam/Review of Systems Vital Signs Vitals Vital Signs Date Time Temp Pulse Resp B/P Pulse Ox O2 Delivery O2 Flow Rate FiO2 08/02/17 07:11 59 29 99 40 08/02/17 06:15 121/53 08/02/17 04:00 99.0 08/02/17 00:00 Mechanical Ventilator Intake and Output 08/01/17 08/01/17 08/02/17 15:00 23:00 07:00 Intake Total 226.544 ml 134.954 ml 130 ml Output Total 1045 ml 1895 ml 1060 ml Balance -818.456 ml -1760.046 ml -930 ml Results Result Diagram: 08/02/17 0530 08/02/17 0530 Results 24 hrs Laboratory Tests Test 08/01/17 09:03 08/01/17 13:15 08/01/17 17:38 08/01/17 20:59 Bedside Glucose 109 110 123 Potassium Level 3.1 L Test 08/01/17 21:12 08/01/17 23:02 08/02/17 01:06 08/02/17 05:30 Bedside Glucose 137 133 Vancomycin Level Trough 14.8 White Blood Count 9.4 Red Blood Count 3.45 L Hemoglobin 11.8 L Hematocrit 32.7 L Mean Corpuscular Volume 94.8 Mean Corpuscular Hemoglobin 34.2 H Mean Corpuscular Hemoglobin Concent 36.1 Red Cell Distribution Width 15.1 H Platelet Count 153 # Mean Platelet Volume 11.5 H Neutrophils % 82.5 H Lymphocytes % 7.8 L Monocytes % 8.7 Eosinophils % 0.0 Basophils % 0.1 Nucleated Red Blood Cells % 0.0 Neutrophils # 7.7 H Lymphocytes # 0.7 L Monocytes # 0.8 Eosinophils # 0.0 Basophils # 0.0 Nucleated Red Blood Cells # 0.0 Sodium Level 151 H Potassium Level 2.6 *L Chloride Level 113 H Carbon Dioxide Level 30 Anion Gap 11 Blood Urea Nitrogen 85 H Creatinine 1.45 H Glucose Level 140 Calcium Level 7.8 L Phosphorus Level 3.6 Magnesium Level 2.0 Test 08/02/17 05:43 Bedside Glucose 136 Medications Medications Current Medications Morphine Sulfate (morphine) 2 mg Q4H PRN IV back pain Last administered on 07/24 20:46; Admin Dose 2 MG; Start 07/24/17 at 17:30 Ondansetron HCl (Zofran Inj) 4 mg Q6H PRN IV NAUSEA AND/OR VOMITING; Start at 19:00 Morphine Sulfate 4 mg 4 mg Q4H PRN IV PAIN LEVEL 7-10; Start 07/24/17 at 19:00 Fluconazole (Diflucan 200 Mg/ NS (Pmx)) 100 ml @ 100 mls/hr Q24H IVPB Last administered on 08/01/17 11:35; Admin Dose 100 MLS/HR; Start 07/25/17 at 11:00 Diagnostic Test (Pha) (Accu-Chek) 1 ea 02 XX Last administered on 08/02/17 01: 06; Admin Dose 1 EA; Start 07/26/17 at 02:00 Insulin Aspart (Novolog Insulin Pen) NOVOLOG *MILD* ALGORI... Q4 SC Last administered on 07/29/17 13:17; Admin Dose 1 UNIT; Start 07/25/17 at 13:00 Miscellaneous Information 1 ea NOTE XX ; Start 07/25/17 at 10:30 Glucose (Glutose) 15 gm Q15M PRN PO DECREASED GLUCOSE; Start 07/25/17 at 10:30 Glucose (Glutose) 22.5 gm Q15M PRN PO DECREASED GLUCOSE; Start 07/25/17 at 10: 30 Dextrose (D50w Syringe) 25 ml Q15M PRN IV DECREASED GLUCOSE; Start 07/25/17 at 10:30 Dextrose (D50w Syringe) 50 ml Q15M PRN IV DECREASED GLUCOSE; Start 07/25/17 at 10:30 Glucagon (Glucagen) 1 mg Q15M PRN IM DECREASED GLUCOSE; Start 07/25/17 at 10:30 Glucose (Glutose) 15 gm Q15M PRN BUCCAL DECREASED GLUCOSE; Start 07/25/17 at 10 :30 Nystatin 1 applic 1 applic BID TOP Last administered on 08/01/17 21:10; Admin Dose 1 APPLIC; Start 07/25/17 at 13:00 Norepinephrine/ Dextrose (Levophed/D5W) 500 ml @ 0 mls/hr TITRATE IV Last administered on 07/29/17 20:41; Admin Dose 15 MLS/HR; Start 07/25/17 at 17:30 IV Flush 10 ml 10 ml PRN PRN IV IV PROTOCOL; Start 07/25/17 at 17:30 Propofol 100 ml @ 3.327 mls/ hr Q12H IV Last administered on 07/26/17 08:42; Admin Dose 9.969 MLS/HR; Start 07/25/17 at 22:00 Midazolam HCl 50 ml @ 1 mls/hr TITRATE IV Last administered on 07/28/17 17:09 ; Admin Dose 3 MLS/HR; Start 07/26/17 at 10:30 Fentanyl 100 ml @ 2.5 mls/hr TITRATE IV Last administered on 07/29/17 02:08; Admin Dose 6 MLS/HR; Start 07/26/17 at 10:30 Vasopressin 60 unit/Dextrose 60 ml @ 1.2 mls/hr Q12H IV Last administered on 07/29/17 07:07; Admin Dose 0.6 MLS/HR; Start 07/26/17 at 13:00 Epinephrine/ Sodium Chloride (EPINEPHrine/NS) 250 ml @ 0 mls/hr TITRATE IV Last administered on 07/28/17 15:59; Admin Dose 22.5 MLS/HR; Start 07/26/17 at 14:30 Acetaminophen 650 mg 650 mg Q6H PRN NGT PAIN AND OR ELEVATED TEMP Last administered on 07/28/17 22:17; Admin Dose 650 MG; Start 07/27/17 at 20:30 Sodium Chloride (1/2 NS) 1,000 ml @ 20 mls/hr Q24H IV Last administered on 10/ 6/17at 07:43; Admin Dose 20 MLS/HR; Start 07/28/17 at 08:00 Hydrocortisone 100 mg 100 mg Q8 IV Last administered on 08/02/17 05:44; Admin Dose 100 MG; Start 07/28/17 at 15:00 Meropenem/Sodium Chloride 50 ml @ 100 mls/hr Q12 IVPB Last administered on 21:09; Admin Dose 100 MLS/HR; Start 07/29/17 at 11:30 Dopamine HCl/ Dextrose 250 ml @ 8.318 mls/ hr TITRATE IV Last administered on 08/01/17 05:09; Admin Dose 8.318 MLS/HR; Start 07/29/17 at 19:30 Vancomycin HCl/ Sodium Chloride (Vancocin/NS) 150 ml @ 100 mls/hr Q24H IVPB Last administered on 08/02/17 00:59; Admin Dose 100 MLS/HR; Start 07/31/17 at 00:00 Famotidine (Pepcid Iv) 20 mg Q12 IV Last administered on 08/01/17 21:09; Admin Dose 20 MG; Start 08/01/17 at 09:00 Atropine Sulfate 0.5 mg 0.5 mg PRN PRN IV DECREASED HEART RATE; Start 08/01/17 at 10:30 Magnesium Sulfate/ Dextrose (Magnesium Sulfate 1 Gm/D5W) 100 ml @ 100 mls/hr ONCE ONCE IVPB Last administered on 08/02/17 07:43; Admin Dose 100 MLS/HR; Start 08/02/17 at 07:30; Stop 08/02/17 at 08:29 PIPER SANTANA MD Aug 02, 2017 08:14
--- NOTE | 2017-08-02 08:17 | RADRPT ---
Echocardiogram Report Patient Name: HORTENCIA CONLEY Gender: Female Date: 1945 Study Date: 01-Aug-2017 Retail Greeting Card Merchandiser: Alondra [facility] Location: 120-A Ref. Physician: PIPER SANTANA Quality: Adequate Procedures: Transthoracic echocardiogram with complete 2D, M-Mode, and doppler examination. Indications: Bradycardia. 2D/M Mode Doppler Measurement Value Normal Ranges Measurement Value Normal Ranges LVIDd 2D 4.7 3.5 - 5.6 cm AV Peak Steven 1.8 m/sec LVIDs 2D 3.4 2.1 - 4.1 cm AV Peak PG 13.0 mmHg FS 2D 29.0 % LVOT Peak Steven 1.5 m/sec LVPWd 2D 1.3 0.6 - 1.1 cm LVOT Peak PG 9.0 mmHg IVSd 2D 1.3 0.6 - 1.1 cm MV E Peak Steven 1.0 m/sec IVS/LVPW 2D 1.0 MV A Peak Steven 1.0 m/sec AoR Diam 2D 2.7 2.0 - 3.7 cm MV E/A 0.9 LA/Ao 2D 1 0 - 1 MV Decel Time 261 msec EDV 2D 106.0 cm3 MV E/A 0.9 ESV 2D 37.9 cm3 TR Peak Steven 2.3 m/sec LA Dimen 2D 3.5 2.3 - 4.0 cm TR Peak PG 21.0 mmHg RVSP 36.0 mmHg Findings Left Ventricle: Normal left ventricular systolic function. Normal left ventricular cavity size. Mild concentric left ventricular hypertrophy. Ejection fraction is visually estimated at 60 %. Abnormal Diastolic Function. Right Ventricle: Normal right ventricular size. Normal right ventricular systolic function. Left Atrium: The left atrium is normal in size. Right Atrium: The right atrium is normal in size. Mitral Valve: Mild mitral leaflet calcification. Mild mitral annular calcification. Trace mitral regurgitation. Aortic Valve: Normal appearance of the aortic valve. No significant aortic stenosis or insufficiency. Tricuspid Valve: Normal appearance of the tricuspid valve. Estimated peak PA systolic pressure 36 mmHg. There is mild tricuspid regurgitation. Pulmonic Valve: Pulmonic valve not well visualized. There is trace pulmonic regurgitation. Pericardium: Normal pericardium with no significant pericardial effusion. Aorta: Normal aortic root. IVC: Dilated inferior vena cava with poor inspiratory collapse consistent with elevated right atrial pressures. Conclusions 1.Normal left ventricular systolic function. Normal left ventricular cavity size. Mild concentric left ventricular hypertrophy. Ejection fraction is visually estimated at 60 %. Abnormal Diastolic Function. 2.Normal right ventricular size. Normal right ventricular systolic function. 3.The left atrium is normal in size. 4.The right atrium is normal in size. 5.Mild mitral leaflet calcification. Mild mitral annular calcification. Trace mitral regurgitation. 6.Normal appearance of the aortic valve. No significant aortic stenosis or insufficiency. 7.Normal appearance of the tricuspid valve. Estimated peak PA systolic pressure 36 mmHg. There is mild tricuspid regurgitation. 8.Normal pericardium with no significant pericardial effusion. Electronically Signed By: Baljinder Cameron 02-Aug-2017 08:16:37 -0700 Patient Name: HORTENCIA CONLEY Study Date: 01-Aug-2017 [id number]
--- NOTE | 2017-08-02 08:26 | CONS ---
Date/Time of Note Date/Time of Note DATE: 08/02/17 TIME: 08:23 Assessment/Plan Assessment/Plan Additional Assessment/Plan 1. Vol overload/CHF is still present despite good diuresis. Will resume after low K and elev Na is corrected. 2. Acute renal failure with stable Scr despite neg fluid balance. 3. Hypok and Hypernat sec to diuresis, to be corrected. 4. Sepsis, abx per ID 5. Rev all above with IM Consultation Date/Type/Reason Admit Date/Time Jul 24, 2017 at 11:53 Initial Consult Date 07/25/17 Type of Consultation: Pulmonary 24 HR Interval Summary Subjective hx not possible: other (she respondsd to name and simple commands, intuabed and and is not on pressores) Exam/Review of Systems Vital Signs Vitals Vital Signs Date Time Temp Pulse Resp B/P Pulse Ox O2 Delivery O2 Flow Rate FiO2 08/02/17 08:00 79 26 95/53 97 Mechanical Ventilator 08/02/17 07:11 40 08/02/17 04:00 99.0 Intake and Output 08/01/17 08/01/17 08/02/17 15:00 23:00 07:00 Intake Total 226.544 ml 134.954 ml 130 ml Output Total 1045 ml 1895 ml 1060 ml Balance -818.456 ml -1760.046 ml -930 ml Exam Neck: No jvd Respiratory: diminished breath sounds, No crackles/rales Cardiovascular: regular rate and rhythm Gastrointestinal: soft Extremities: edema (unchanged sacral and extrem edema) Results Result Diagram: 08/02/17 0530 08/02/17 0530 Results 24 hrs Laboratory Tests Test 08/01/17 09:03 08/01/17 13:15 08/01/17 17:38 08/01/17 20:59 Bedside Glucose 109 110 123 Potassium Level 3.1 L Test 08/01/17 21:12 08/01/17 23:02 08/02/17 01:06 08/02/17 05:30 Bedside Glucose 137 133 Vancomycin Level Trough 14.8 White Blood Count 9.4 Red Blood Count 3.45 L Hemoglobin 11.8 L Hematocrit 32.7 L Mean Corpuscular Volume 94.8 Mean Corpuscular Hemoglobin 34.2 H Mean Corpuscular Hemoglobin Concent 36.1 Red Cell Distribution Width 15.1 H Platelet Count 153 # Mean Platelet Volume 11.5 H Neutrophils % 82.5 H Lymphocytes % 7.8 L Monocytes % 8.7 Eosinophils % 0.0 Basophils % 0.1 Nucleated Red Blood Cells % 0.0 Neutrophils # 7.7 H Lymphocytes # 0.7 L Monocytes # 0.8 Eosinophils # 0.0 Basophils # 0.0 Nucleated Red Blood Cells # 0.0 Sodium Level 151 H Potassium Level 2.6 *L Chloride Level 113 H Carbon Dioxide Level 30 Anion Gap 11 Blood Urea Nitrogen 85 H Creatinine 1.45 H Glucose Level 140 Calcium Level 7.8 L Phosphorus Level 3.6 Magnesium Level 2.0 Test 08/02/17 05:43 Bedside Glucose 136 Medications Medications Current Medications Morphine Sulfate (morphine) 2 mg Q4H PRN IV back pain Last administered on 07/24 20:46; Admin Dose 2 MG; Start 07/24/17 at 17:30 Ondansetron HCl (Zofran Inj) 4 mg Q6H PRN IV NAUSEA AND/OR VOMITING; Start at 19:00 Morphine Sulfate 4 mg 4 mg Q4H PRN IV PAIN LEVEL 7-10; Start 07/24/17 at 19:00 Fluconazole (Diflucan 200 Mg/ NS (Pmx)) 100 ml @ 100 mls/hr Q24H IVPB Last administered on 08/01/17 11:35; Admin Dose 100 MLS/HR; Start 07/25/17 at 11:00 Diagnostic Test (Pha) (Accu-Chek) 1 ea 02 XX Last administered on 08/02/17 01: 06; Admin Dose 1 EA; Start 07/26/17 at 02:00 Insulin Aspart (Novolog Insulin Pen) NOVOLOG *MILD* ALGORI... Q4 SC Last administered on 07/29/17 13:17; Admin Dose 1 UNIT; Start 07/25/17 at 13:00 Miscellaneous Information 1 ea NOTE XX ; Start 07/25/17 at 10:30 Glucose (Glutose) 15 gm Q15M PRN PO DECREASED GLUCOSE; Start 07/25/17 at 10:30 Glucose (Glutose) 22.5 gm Q15M PRN PO DECREASED GLUCOSE; Start 07/25/17 at 10: 30 Dextrose (D50w Syringe) 25 ml Q15M PRN IV DECREASED GLUCOSE; Start 07/25/17 at 10:30 Dextrose (D50w Syringe) 50 ml Q15M PRN IV DECREASED GLUCOSE; Start 07/25/17 at 10:30 Glucagon (Glucagen) 1 mg Q15M PRN IM DECREASED GLUCOSE; Start 07/25/17 at 10:30 Glucose (Glutose) 15 gm Q15M PRN BUCCAL DECREASED GLUCOSE; Start 07/25/17 at 10 :30 Nystatin 1 applic 1 applic BID TOP Last administered on 08/01/17 21:10; Admin Dose 1 APPLIC; Start 07/25/17 at 13:00 Norepinephrine/ Dextrose (Levophed/D5W) 500 ml @ 0 mls/hr TITRATE IV Last administered on 07/29/17 20:41; Admin Dose 15 MLS/HR; Start 07/25/17 at 17:30 IV Flush 10 ml 10 ml PRN PRN IV IV PROTOCOL; Start 07/25/17 at 17:30 Propofol 100 ml @ 3.327 mls/ hr Q12H IV Last administered on 07/26/17 08:42; Admin Dose 9.969 MLS/HR; Start 07/25/17 at 22:00 Midazolam HCl 50 ml @ 1 mls/hr TITRATE IV Last administered on 07/28/17 17:09 ; Admin Dose 3 MLS/HR; Start 07/26/17 at 10:30 Fentanyl 100 ml @ 2.5 mls/hr TITRATE IV Last administered on 07/29/17 02:08; Admin Dose 6 MLS/HR; Start 07/26/17 at 10:30 Vasopressin 60 unit/Dextrose 60 ml @ 1.2 mls/hr Q12H IV Last administered on 07/29/17 07:07; Admin Dose 0.6 MLS/HR; Start 07/26/17 at 13:00 Epinephrine/ Sodium Chloride (EPINEPHrine/NS) 250 ml @ 0 mls/hr TITRATE IV Last administered on 07/28/17 15:59; Admin Dose 22.5 MLS/HR; Start 07/26/17 at 14:30 Acetaminophen (Tylenol Liquid) 650 mg Q6H PRN NGT PAIN AND OR ELEVATED TEMP Last administered on 07/28/17 22:17; Admin Dose 650 MG; Start 07/27/17 at 20:30 Hydrocortisone 100 mg 100 mg Q8 IV Last administered on 08/02/17 05:44; Admin Dose 100 MG; Start 07/28/17 at 15:00 Meropenem/Sodium Chloride 50 ml @ 100 mls/hr Q12 IVPB Last administered on 21:09; Admin Dose 100 MLS/HR; Start 07/29/17 at 11:30 Dopamine HCl/ Dextrose 250 ml @ 8.318 mls/ hr TITRATE IV Last administered on 08/01/17 05:09; Admin Dose 8.318 MLS/HR; Start 07/29/17 at 19:30 Vancomycin HCl/ Sodium Chloride (Vancocin/NS) 150 ml @ 100 mls/hr Q24H IVPB Last administered on 08/02/17 00:59; Admin Dose 100 MLS/HR; Start 07/31/17 at 00:00 Famotidine (Pepcid Iv) 20 mg Q12 IV Last administered on 08/01/17 21:09; Admin Dose 20 MG; Start 08/01/17 at 09:00 Atropine Sulfate 0.5 mg 0.5 mg PRN PRN IV DECREASED HEART RATE; Start 08/01/17 at 10:30 Magnesium Sulfate/ Dextrose 100 ml @ 100 mls/hr ONCE ONCE IVPB Last administered on 08/02/17 07:43; Admin Dose 100 MLS/HR; Start 08/02/17 at 07:30 ; Stop 08/02/17 at 08:29 Potassium Chloride 50 ml @ 25 mls/hr Q2H IVPB ; Start 08/02/17 at 08:30; Stop 08/02/17 at 18:29; Status UNV Dextrose (D5W) 1,000 ml @ 125 mls/hr Q8H IV ; Start 08/02/17 at 08:30; Status UNV MELVA SHANNON MD Aug 02, 2017 08:26
[2017-08-02] MEDS ORDERED: POTASSIUM CHLORIDE 50 ML ONE (08:34)
[2017-08-02] MEDS: DEXTROSE 5% 1,000 ML IV SCH ×3 (08:49→22:16)
[2017-08-02] MEDS: FAMOTIDINE 20 MG INJ IV SCH ×2 (08:52→20:28)
[2017-08-02] MEDS: BALSAM PERU/CASTOR OIL 60 GM TUBE TOP SCH ×2 (08:52→20:28)
[2017-08-02] MEDS: NYSTATIN 30 GM POWDER BTL TOP SCH ×2 (08:53→20:28)
[2017-08-02] MEDS: MEROPENEM 500MG/50 ML (PMX) 50 ML IVPB SCH ×2 (09:01→20:27)
[2017-08-02] MEDS: POTASSIUM CHLORIDE 50 ML IVPB SCH ×5 (09:07→20:28)
[2017-08-02] MEDS: PROPOFOL 100 ML IV SCH ×2 (10:00→20:58)
--- NOTE | 2017-08-02 11:41 | CONS ---
Date/Time of Note Date/Time of Note DATE: 08/02/17 TIME: 11:38 Consult Date/Type/Reason Admit Date/Time Jul 24, 2017 at 11:53 Initial Consult Date 07/25/17 Type of Consultation: Pulmonary Subjective More alert this morning. Opens eyes but not consistently following commands. Objective Vital Signs Date Time Temp Pulse Resp B/P Pulse Ox O2 Delivery O2 Flow Rate FiO2 08/02/17 10:09 75 95 40 08/02/17 10:00 19 105/62 08/02/17 09:30 Mechanical Ventilator 08/02/17 04:00 99.0 Intake and Output 08/01/17 08/01/17 08/02/17 15:00 23:00 07:00 Intake Total 226.544 ml 134.954 ml 130 ml Output Total 1045 ml 1895 ml 1060 ml Balance -818.456 ml -1760.046 ml -930 ml Exam PHYSICAL EXAMINATION: GENERAL APPEARANCE: Elderly lady on mechanical ventilation appears comfortable at rest. VITAL SIGNS: NECK: Supple. No JVD. HEART: S1, S2. No added sounds or murmurs. CHEST: Diminished air entry. Bilateral rhonchi. ABDOMEN: Soft, nontender. No guarding or rebound. EXTREMITIES: No cyanosis, clubbing, edema +2 NEUROLOGIC: Generalized weakness. Results/Medications Result Diagram: 08/02/17 0530 08/02/17 0530 Results 24 hrs Chest x-ray Pulmonary edema Laboratory Tests Test 08/01/17 13:15 08/01/17 17:38 08/01/17 20:59 08/01/17 21:12 Bedside Glucose 110 123 137 Potassium Level 3.1 L Test 08/01/17 23:02 08/02/17 01:06 08/02/17 05:30 08/02/17 05:43 Vancomycin Level Trough 14.8 Bedside Glucose 133 136 White Blood Count 9.4 Red Blood Count 3.45 L Hemoglobin 11.8 L Hematocrit 32.7 L Mean Corpuscular Volume 94.8 Mean Corpuscular Hemoglobin 34.2 H Mean Corpuscular Hemoglobin Concent 36.1 Red Cell Distribution Width 15.1 H Platelet Count 153 # Mean Platelet Volume 11.5 H Neutrophils % 82.5 H Lymphocytes % 7.8 L Monocytes % 8.7 Eosinophils % 0.0 Basophils % 0.1 Nucleated Red Blood Cells % 0.0 Neutrophils # 7.7 H Lymphocytes # 0.7 L Monocytes # 0.8 Eosinophils # 0.0 Basophils # 0.0 Nucleated Red Blood Cells # 0.0 Sodium Level 151 H Potassium Level 2.6 *L Chloride Level 113 H Carbon Dioxide Level 30 Anion Gap 11 Blood Urea Nitrogen 85 H Creatinine 1.45 H Glucose Level 140 Calcium Level 7.8 L Phosphorus Level 3.6 Magnesium Level 2.0 Test 08/02/17 09:16 Bedside Glucose 161 Medications Current Medications Morphine Sulfate (morphine) 2 mg Q4H PRN IV back pain Last administered on 07/24 20:46; Admin Dose 2 MG; Start 07/24/17 at 17:30 Ondansetron HCl (Zofran Inj) 4 mg Q6H PRN IV NAUSEA AND/OR VOMITING; Start at 19:00 Morphine Sulfate 4 mg 4 mg Q4H PRN IV PAIN LEVEL 7-10; Start 07/24/17 at 19:00 Fluconazole (Diflucan 200 Mg/ NS (Pmx)) 100 ml @ 100 mls/hr Q24H IVPB Last administered on 08/01/17 11:35; Admin Dose 100 MLS/HR; Start 07/25/17 at 11:00 Diagnostic Test (Pha) (Accu-Chek) 1 ea 02 XX Last administered on 08/02/17 01: 06; Admin Dose 1 EA; Start 07/26/17 at 02:00 Insulin Aspart (Novolog Insulin Pen) NOVOLOG *MILD* ALGORI... Q4 SC Last administered on 08/02/17 09:18; Admin Dose 1 UNIT; Start 07/25/17 at 13:00 Miscellaneous Information 1 ea NOTE XX ; Start 07/25/17 at 10:30 Glucose (Glutose) 15 gm Q15M PRN PO DECREASED GLUCOSE; Start 07/25/17 at 10:30 Glucose (Glutose) 22.5 gm Q15M PRN PO DECREASED GLUCOSE; Start 07/25/17 at 10: 30 Dextrose (D50w Syringe) 25 ml Q15M PRN IV DECREASED GLUCOSE; Start 07/25/17 at 10:30 Dextrose (D50w Syringe) 50 ml Q15M PRN IV DECREASED GLUCOSE; Start 07/25/17 at 10:30 Glucagon (Glucagen) 1 mg Q15M PRN IM DECREASED GLUCOSE; Start 07/25/17 at 10:30 Glucose (Glutose) 15 gm Q15M PRN BUCCAL DECREASED GLUCOSE; Start 07/25/17 at 10 :30 Nystatin 1 applic 1 applic BID TOP Last administered on 08/02/17 08:53; Admin Dose 1 APPLIC; Start 07/25/17 at 13:00 Norepinephrine/ Dextrose (Levophed/D5W) 500 ml @ 0 mls/hr TITRATE IV Last administered on 07/29/17 20:41; Admin Dose 15 MLS/HR; Start 07/25/17 at 17:30 IV Flush 10 ml 10 ml PRN PRN IV IV PROTOCOL; Start 07/25/17 at 17:30 Propofol 100 ml @ 3.327 mls/ hr Q12H IV Last administered on 07/26/17 08:42; Admin Dose 9.969 MLS/HR; Start 07/25/17 at 22:00 Midazolam HCl 50 ml @ 1 mls/hr TITRATE IV Last administered on 07/28/17 17:09 ; Admin Dose 3 MLS/HR; Start 07/26/17 at 10:30 Fentanyl 100 ml @ 2.5 mls/hr TITRATE IV Last administered on 07/29/17 02:08; Admin Dose 6 MLS/HR; Start 07/26/17 at 10:30 Vasopressin 60 unit/Dextrose 60 ml @ 1.2 mls/hr Q12H IV Last administered on 07/29/17 07:07; Admin Dose 0.6 MLS/HR; Start 07/26/17 at 13:00 Epinephrine/ Sodium Chloride (EPINEPHrine/NS) 250 ml @ 0 mls/hr TITRATE IV Last administered on 07/28/17 15:59; Admin Dose 22.5 MLS/HR; Start 07/26/17 at 14:30 Acetaminophen (Tylenol Liquid) 650 mg Q6H PRN NGT PAIN AND OR ELEVATED TEMP Last administered on 07/28/17 22:17; Admin Dose 650 MG; Start 07/27/17 at 20:30 Hydrocortisone 100 mg 100 mg Q8 IV Last administered on 08/02/17 05:44; Admin Dose 100 MG; Start 07/28/17 at 15:00 Meropenem/Sodium Chloride 50 ml @ 100 mls/hr Q12 IVPB Last administered on 09:01; Admin Dose 100 MLS/HR; Start 07/29/17 at 11:30 Dopamine HCl/ Dextrose 250 ml @ 8.318 mls/ hr TITRATE IV Last administered on 08/01/17 05:09; Admin Dose 8.318 MLS/HR; Start 07/29/17 at 19:30 Vancomycin HCl/ Sodium Chloride (Vancocin/NS) 150 ml @ 100 mls/hr Q24H IVPB Last administered on 08/02/17 00:59; Admin Dose 100 MLS/HR; Start 07/31/17 at 00:00 Famotidine (Pepcid Iv) 20 mg Q12 IV Last administered on 08/02/17 08:52; Admin Dose 20 MG; Start 08/01/17 at 09:00 Atropine Sulfate 0.5 mg 0.5 mg PRN PRN IV DECREASED HEART RATE; Start 08/01/17 at 10:30 Potassium Chloride 50 ml @ 25 mls/hr Q2H IVPB Last administered on 08/02/17 09 :07; Admin Dose 25 MLS/HR; Start 08/02/17 at 08:30; Stop 08/02/17 at 18:29 Dextrose (D5W) 1,000 ml @ 125 mls/hr Q8H IV Last administered on 08/02/17 08: 49; Admin Dose 125 MLS/HR; Start 08/02/17 at 08:30 Assessment/Plan Chief Complaint/Hosp Course assessment 1. Encephalopathy likely toxic metabolic appears to be slowly resolving this morning. 2. Hypoxemic and hypercapnic respiratory failure, continues mechanical ventilation. Will attempt CPAP trial now more alert. 3. Status post gram-negative septic shock 4. Resolved thrombus cytopenia 5. Renal insufficiency likely ATN injury on top of chronic renal insufficiency. Hypernatremia and hypokalemia noted. Plan 1. Tube feeding as tolerated 2. Continue broad-spectrum antibiotic coverage, 3. Neurology evaluation and recommendations. 4. Continue mechanical ventilation. CPAP trial today. 5. Overall prognosis guarded. 6. Replace electrolytes. Consider increasing free water per NG tube. Critical care time 40 minutes. Discussed with staff. Problems: DIMITRY VILLAVICENCIO [facility] Aug 02, 2017 11:41
[2017-08-02 12:09] LABS: AADO2 Arterial 123.1 mmHg (7.0-24.0); Allen Test ACCEPTAB; Arterial COHb 0.3 % (0.0-3.0); Arterial Fraction of Oxyhgb 97.3 % (93.0-99.0); Arterial HCO3 27.8 mmol/L (22.0-26.0); Arterial MetHb 0.4 % (0.0-1.5); Arterial Total Hemglobin 12.6 g/dl (12.0-18.0); Blood Gas PS 10; MODE VENT - CPAP
[2017-08-02] MEDS: FLUCONAZOLE 200 MG/NS (PMX) 100 ML IVPB SCH (12:24)
[2017-08-02] MEDS: morphine 2 MG INJ IV PRN ×2 (15:33→20:27)
--- NOTE | 2017-08-02 17:29 | PN ---
DATE: 08/02/2017 INFECTIOUS DISEASE PROGRESS NOTE SUBJECTIVE: No acute events overnight. The patient is off dopamine drip. Currently on CPAP, looks comfortable, no fevers overnight. VITAL SIGNS: Temperature 99, pulse 76, respirations 26, blood pressure 104/60, saturation 99% on 40 FIO2. WBC 9.4, H and H 11.8 and 32.7, platelets 153. BUN 85, creatinine 1.45. Sodium 151, potass ium 2.5. MICROBIOLOGY: Blood culture on admission grew E. coli. Urine culture grew E. coli. Repeat blood c ultures and urine cultures negative. INDWELLINGS: Endotracheal tube, NG tube, [place] catheter, PICC line. ANTIMICROBIALS: 1. Vancomycin. 2. Meropenem. PHYSICAL EXAMINATION: GENERAL: Fragile, well-developed, obese, elderly woman who is in no distress. HEENT: Head atraumatic, normocephalic. Sclerae anicteric. Buccal mucosa dry. NECK: Supple, trachea midline. CHEST: Rise symmetrical. Breath sounds diminished to bases. HEART: S1, S2. ABDOMEN: Soft, bowel tones present. EXTREMITIES: No cyanosis. Bilateral lower extremities edema, left lower extremity erythema, resolv ing. ASSESSMENT: 1. Septic shock, stable off pressors. 2. Status post symptomatic bradycardia. 3. Left lower extremity cellulitis. 4. Escherichia coli urinary tract infection with bacteremia. 5. Hepatomegaly with cholelithiasis and biliary duct dilatation per ultrasound. 6. Anemia. 7. Thrombocytopenia. 8. Acute renal failure. 9. Electrolyte imbalance. PLAN: Patient remains stable, overall improving. Continue present care, antibiotics, weaning trial s as per pulmonary. Nephrology, cardiology recommendations. Dictated By: ERICKA LEGER CHIEF CATALYST OPERATOR for BURT MOORE MD NI/NTS Conf#: [id number] DID#: [id number]
[2017-08-02] MEDS: DOPamine-D5W 1.6 MG/ML 250 ML IV SCH (22:16)
[2017-08-02 23:16] LABS: CALCIUM 7.6 mg/dl (8.4-10.2); CREATININE 1.27 mg/dl (0.44-1.00); POTASSIUM 3.9 mmol/L (3.5-5.1)
[2017-08-03] VITALS (100 sets, daily range): BP systolic 73–163; BP diastolic 38–85; PULSE 38–87; RESP 14–26
[2017-08-03] MEDS: VANCOMYCIN 750 MG in SOD CHLORIDE 0.9% 150 ML IVPB SCH (00:22)
[2017-08-03] MEDS: INSULIN ASPART [NOVOLOG] 3 ML PEN SC SCH ×6 (00:27→21:09)
[2017-08-03] MEDS: VASOPRESSIN 60 UNIT in DEXTROSE 5% 57 ML IV SCH ×2 (01:00→12:37)
[2017-08-03] MEDS: DOPamine-D5W 1.6 MG/ML 250 ML IV SCH ×3 (01:30→20:54)
[2017-08-03] MEDS: ACCU-CHEK XX SCH (01:37)
[2017-08-03 05:11] LABS: WHITE BLOOD COUNT 10.2 10^3/ul (4.8-10.8)
[2017-08-03 05:12] LABS: ABNORMAL IP MESSAGE 1; BASOPHILS % 0.1 % (0.0-2.0); HEMATOCRIT 29.2 % (37.0-47.0); HEMOGLOBIN 9.7 g/dl (12.0-16.0); LYMPHOCYTES # 0.6 10^3/ul (0.8-2.9); LYMPHOCYTES % 5.4 % (15.0-51.0); MEAN CORPUSCULAR HEMOGLOBIN 33.2 pg (29.0-33.0); MEAN CORPUSCULAR HGB CONC 33.2 g/dl (32.0-37.0); MEAN PLATELET VOLUME 11.9 fl (7.4-10.4); MONOCYTE # 0.6 10^3/ul (0.3-0.9); MONOCYTES % 5.4 % (0.0-11.0); NEUTROPHIL # 9.1 10^3/ul (1.6-7.5); NEUTROPHILS % 88.5 % (39.0-77.0); PLATELET COUNT 134 10^3/UL (140-415); RED BLOOD COUNT 2.92 10^6/ul (4.20-5.40); RED CELL DISTRIBUTION WIDTH 15.7 % (11.5-14.5)
[2017-08-03 05:14] LABS: POSITIVE DIFF @See below
[2017-08-03 05:21] LABS: CALCIUM 7.7 mg/dl (8.4-10.2); CREATININE 1.19 mg/dl (0.44-1.00); MAGNESIUM 2.2 mg/dl (1.7-2.5); PHOSPHORUS 4.4 mg/dl (2.5-4.9); POTASSIUM 3.5 mmol/L (3.5-5.1)
[2017-08-03] MEDS: HYDROCORTISONE 100 MG INJ IV SCH ×3 (05:22→21:00)
[2017-08-03] MEDS: PROPOFOL 100 ML IV SCH ×2 (07:00→21:06)
--- NOTE | 2017-08-03 07:45 | PN ---
Date/Time of Note Date/Time of Note DATE: 08/03/17 TIME: 07:41 Assessment/Plan VTE Prophylaxis VTE Prophylaxis Intervention: contraindicated Lines/Catheters IV C[facility]ter Type (from [facility]): Peripheral IV Urinary Cath still in place: Yes Reason Cath still needed: urinary retention Assessment/Plan Problems: (1) Respiratory failure Status: Acute Comment: He is improved and is approaching a time where we may be able to extubate her. Trying to optimize her status. We will repeat her chest x-ray and make sure about what her volume status looks like. Please note she is intra -vascularly depleted all total body water fluid excess. Qualifiers: Chronicity: acute Respiratory failure complication: hypoxia and hypercapnia Qualified Code: J96.01 - Acute respiratory failure with hypoxia and hypercapnia (2) Septic shock due to Escherichia coli Status: Acute Comment: This is clearing with antibiotic therapy. Please note the presumption this is a urinary source may not be accurate she has an abnormal abdominal ultrasound with cholelithiasis. Once we can move around she will need a HIDA scan performed (3) Cholelithiasis Status: Chronic Comment: As above I am of the opinion that when we have her more mobile and stable we need a HIDA scan. Qualifiers: Cholelithiasis location: gallbladder Cholecystitis presence: without cholecystitis Biliary obstruction: without biliary obstruction Qualified Code : K80.20 - Calculus of gallbladder without cholecystitis without obstruction (4) UTI (urinary tract infection) Status: Acute Comment: On appropriate antibiotics Qualifiers: Urinary tract infection type: acute cystitis Hematuria presence: without hematuria Qualified Code: N30.00 - Acute cystitis without hematuria (5) Septicemia due to Gram negative organism Status: Acute Comment: As above clearing (6) Acute renal failure (ARF) Status: Acute Comment: She is improving steadily. Please note she still has a prerenal state total body water or fluid volume excess Qualifiers: Acute renal failure type: with acute renal cortical necrosis Qualified Code : N17.1 - Acute renal failure with acute cortical necrosis Subjective 24 Hr Interval Summary Free Text/Dictation Patient remains intubated at this time however she does follow with the eyes and follows simple commands Exam/Review of Systems Vital Signs Vitals Vital Signs Date Time Temp Pulse Resp B/P Pulse Ox O2 Delivery O2 Flow Rate FiO2 08/03/17 07:00 38 18 96/48 97 Mechanical Ventilator 08/03/17 05:06 40 08/03/17 04:00 98.5 Intake and Output 08/02/17 08/02/17 08/03/17 15:00 23:00 07:00 Intake Total 1475 ml 1189 ml 745.61 ml Output Total 763 ml 765 ml 590 ml Balance 712 ml 424 ml 155.61 ml Exam Constitutional: alert, non-verbal ENMT: intubated, nl external ears & nose, nl lips & teeth, nl nasal mucosa & septum, other (Orogastric tube present) Respiratory: crackles/rales, normal air movement Cardiovascular: nl pulses, regular rate and rhythm Gastrointestinal: nl liver, spleen, non-tender, soft Results Result Diagram: 08/03/17 0353 08/03/17 0353 Results 24 hrs Laboratory Tests Test 08/02/17 09:16 08/02/17 12:00 08/02/17 13:19 08/02/17 17:09 Bedside Glucose 161 140 138 Blood Gas Specimen Source Blood arterial Arterial Blood Date Drawn 08/02/2017 12:00:07 PM Arterial Blood pH (Temp corrected) 7.518 H Arterial Blood pCO2 (Temp correct) 35.0 Arterial Blood pO2 (Temp corrected) 121.9 H Arterial Blood HCO3 27.8 H Arterial Blood Base Excess 5.0 H Arterial Blood Oxygen Saturation 98.0 Sanjeev Test ACCEPTAB Arterial Blood Gas Puncture Site Right Radial Arterial Blood Carboxyhemoglobin 0.3 Arterial Blood Methemoglobin 0.4 Blood Gas A-a O2 Differential 123.1 H Oxyhemoglobin Percent 97.3 Total Hemoglobin 12.6 Blood Gas Temperature 37.0 Blood Gas Actual Respiration Rate 30 Blood Gas Modality VENT - CPAP FiO2 40.0 Blood Gas Low PEEP Setting 5.0 Blood Gas Pressure Support 10 Blood Gas Notified Whom JLD Blood Gas Notified Time 08/02/2017 12:09:42 PM Test 08/02/17 21:02 08/02/17 22:19 08/03/17 00:21 08/03/17 03:53 Bedside Glucose 129 158 Sodium Level 149 H 148 H Potassium Level 3.9 3.5 Chloride Level 114 H 113 H Carbon Dioxide Level 30 29 Anion Gap 9 10 Blood Urea Nitrogen 82 H 77 H Creatinine 1.27 H 1.19 H Glucose Level 123 148 Calcium Level 7.6 L 7.7 L White Blood Count 10.2 Red Blood Count 2.92 L Hemoglobin 9.7 L Hematocrit 29.2 L Mean Corpuscular Volume 100.0 Mean Corpuscular Hemoglobin 33.2 H Mean Corpuscular Hemoglobin Concent 33.2 Red Cell Distribution Width 15.7 H Platelet Count 134 L Mean Platelet Volume 11.9 H Neutrophils % 88.5 H Lymphocytes % 5.4 L Monocytes % 5.4 Eosinophils % 0.0 Basophils % 0.1 Nucleated Red Blood Cells % 0.0 Neutrophils # 9.1 H Lymphocytes # 0.6 L Monocytes # 0.6 Eosinophils # 0.0 Basophils # 0.0 Nucleated Red Blood Cells # 0.0 Phosphorus Level 4.4 Magnesium Level 2.2 Test 08/03/17 05:21 Bedside Glucose 155 Medications Medications Current Medications Morphine Sulfate (morphine) 2 mg Q4H PRN IV back pain Last administered on 08/02 20:27; Admin Dose 2 MG; Start 07/24/17 at 17:30 Ondansetron HCl (Zofran Inj) 4 mg Q6H PRN IV NAUSEA AND/OR VOMITING; Start at 19:00 Morphine Sulfate 4 mg 4 mg Q4H PRN IV PAIN LEVEL 7-10; Start 07/24/17 at 19:00 Fluconazole (Diflucan 200 Mg/ NS (Pmx)) 100 ml @ 100 mls/hr Q24H IVPB Last administered on 08/02/17 12:24; Admin Dose 100 MLS/HR; Start 07/25/17 at 11:00 Diagnostic Test (Pha) (Accu-Chek) 1 ea 02 XX Last administered on 08/02/17 01: 06; Admin Dose 1 EA; Start 07/26/17 at 02:00 Insulin Aspart (Novolog Insulin Pen) NOVOLOG *MILD* ALGORI... Q4 SC Last administered on 08/03/17 05:33; Admin Dose 1 UNIT; Start 07/25/17 at 13:00 Miscellaneous Information 1 ea NOTE XX ; Start 07/25/17 at 10:30 Glucose (Glutose) 15 gm Q15M PRN PO DECREASED GLUCOSE; Start 07/25/17 at 10:30 Glucose (Glutose) 22.5 gm Q15M PRN PO DECREASED GLUCOSE; Start 07/25/17 at 10: 30 Dextrose (D50w Syringe) 25 ml Q15M PRN IV DECREASED GLUCOSE; Start 07/25/17 at 10:30 Dextrose (D50w Syringe) 50 ml Q15M PRN IV DECREASED GLUCOSE; Start 07/25/17 at 10:30 Glucagon (Glucagen) 1 mg Q15M PRN IM DECREASED GLUCOSE; Start 07/25/17 at 10:30 Glucose (Glutose) 15 gm Q15M PRN BUCCAL DECREASED GLUCOSE; Start 07/25/17 at 10 :30 Nystatin 1 applic 1 applic BID TOP Last administered on 08/02/17 20:28; Admin Dose 1 APPLIC; Start 07/25/17 at 13:00 Norepinephrine/ Dextrose (Levophed/D5W) 500 ml @ 0 mls/hr TITRATE IV Last administered on 07/29/17 20:41; Admin Dose 15 MLS/HR; Start 07/25/17 at 17:30 IV Flush 10 ml 10 ml PRN PRN IV IV PROTOCOL; Start 07/25/17 at 17:30 Propofol 100 ml @ 3.327 mls/ hr Q12H IV Last administered on 08/03/17 07:00; Admin Dose 10.647 MLS/HR; Start 07/25/17 at 22:00 Midazolam HCl 50 ml @ 1 mls/hr TITRATE IV Last administered on 07/28/17 17:09 ; Admin Dose 3 MLS/HR; Start 07/26/17 at 10:30 Fentanyl 100 ml @ 2.5 mls/hr TITRATE IV Last administered on 07/29/17 02:08; Admin Dose 6 MLS/HR; Start 07/26/17 at 10:30 Vasopressin 60 unit/Dextrose 60 ml @ 1.2 mls/hr Q12H IV Last administered on 07/29/17 07:07; Admin Dose 0.6 MLS/HR; Start 07/26/17 at 13:00 Epinephrine/ Sodium Chloride (EPINEPHrine/NS) 250 ml @ 0 mls/hr TITRATE IV Last administered on 07/28/17 15:59; Admin Dose 22.5 MLS/HR; Start 07/26/17 at 14:30 Acetaminophen (Tylenol Liquid) 650 mg Q6H PRN NGT PAIN AND OR ELEVATED TEMP Last administered on 07/28/17 22:17; Admin Dose 650 MG; Start 07/27/17 at 20:30 Hydrocortisone 100 mg 100 mg Q8 IV Last administered on 08/03/17 05:22; Admin Dose 100 MG; Start 07/28/17 at 15:00 Meropenem/Sodium Chloride 50 ml @ 100 mls/hr Q12 IVPB Last administered on 20:27; Admin Dose 100 MLS/HR; Start 07/29/17 at 11:30 Dopamine HCl/ Dextrose 250 ml @ 8.318 mls/ hr TITRATE IV Last administered on 08/03/17 01:30; Admin Dose 8.318 MLS/HR; Start 07/29/17 at 19:30 Vancomycin HCl/ Sodium Chloride (Vancocin/NS) 150 ml @ 100 mls/hr Q24H IVPB Last administered on 08/03/17 00:22; Admin Dose 100 MLS/HR; Start 07/31/17 at 00:00 Famotidine (Pepcid Iv) 20 mg Q12 IV Last administered on 08/02/17 20:28; Admin Dose 20 MG; Start 08/01/17 at 09:00 Atropine Sulfate 0.5 mg 0.5 mg PRN PRN IV DECREASED HEART RATE; Start 08/01/17 at 10:30 Dextrose (D5W) 1,000 ml @ 125 mls/hr Q8H IV Last administered on 08/02/17 22: 16; Admin Dose 125 MLS/HR; Start 08/02/17 at 08:30 TIANA JUNIOR MD Aug 03, 2017 07:45
[2017-08-03] MEDS: MEROPENEM 500MG/50 ML (PMX) 50 ML IVPB SCH ×2 (08:52→20:59)
[2017-08-03] MEDS: FAMOTIDINE 20 MG INJ IV SCH ×2 (08:52→20:56)
[2017-08-03] MEDS: DEXTROSE 5% 1,000 ML IV SCH ×3 (08:52→20:10)
[2017-08-03] MEDS: NYSTATIN 30 GM POWDER BTL TOP SCH ×2 (08:52→20:58)
[2017-08-03] MEDS: BALSAM PERU/CASTOR OIL 60 GM TUBE TOP SCH ×2 (08:53→20:58)
[2017-08-03 08:59] LABS: AADO2 Arterial 165.2 mmHg (7.0-24.0); Allen Test ACCEPTAB; Arterial Base Excess 2.2 mmol/L (-3.0-3); Arterial COHb 0.1 % (0.0-3.0); Arterial Fraction of Oxyhgb 95.1 % (93.0-99.0); Arterial HCO3 25.2 mmol/L (22.0-26.0); Arterial MetHb 0.4 % (0.0-1.5); Arterial Total Hemglobin 11.6 g/dl (12.0-18.0); MODE VENT - AC
[2017-08-03] MEDS: ATROPINE 1 MG/10 ML SYRINGE IV PRN (09:36)
--- NOTE | 2017-08-03 09:44 | CONS ---
Date/Time of Note Date/Time of Note DATE: 08/03/17 TIME: 09:42 Assessment/Plan Assessment/Plan Additional Assessment/Plan 1. Acute renal failure resolving. 2. Hypokalemia resolving 3. Hypernatremia improved, D5W inc 4. Low BP, O>>>>I, will give NS bolus 5. Sepsis, abx per id Consultation Date/Type/Reason Admit Date/Time Jul 24, 2017 at 11:53 Initial Consult Date 07/25/17 Type of Consultation: Pulmonary 24 HR Interval Summary Subjective hx not possible: other (responds to name) Exam/Review of Systems Vital Signs Vitals Vital Signs Date Time Temp Pulse Resp B/P Pulse Ox O2 Delivery O2 Flow Rate FiO2 08/03/17 07:00 38 18 96/48 97 Mechanical Ventilator 08/03/17 05:06 40 08/03/17 04:00 98.5 Intake and Output 08/02/17 08/02/17 08/03/17 15:00 23:00 07:00 Intake Total 1475 ml 1189 ml 1280.01 ml Output Total 763 ml 765 ml 590 ml Balance 712 ml 424 ml 690.01 ml Exam Neck: No jvd Respiratory: clear to auscultation Gastrointestinal: soft Extremities: edema (much less and trace sacral edema) Results Result Diagram: 08/03/17 0353 08/03/17 0353 Results 24 hrs Laboratory Tests Test 08/02/17 12:00 08/02/17 13:19 08/02/17 17:09 08/02/17 21:02 Blood Gas Specimen Source Blood arterial Arterial Blood Date Drawn 08/02/2017 12:00:07 PM Arterial Blood pH (Temp corrected) 7.518 H Arterial Blood pCO2 (Temp correct) 35.0 Arterial Blood pO2 (Temp corrected) 121.9 H Arterial Blood HCO3 27.8 H Arterial Blood Base Excess 5.0 H Arterial Blood Oxygen Saturation 98.0 Sanjeev Test ACCEPTAB Arterial Blood Gas Puncture Site Right Radial Arterial Blood Carboxyhemoglobin 0.3 Arterial Blood Methemoglobin 0.4 Blood Gas A-a O2 Differential 123.1 H Oxyhemoglobin Percent 97.3 Total Hemoglobin 12.6 Blood Gas Temperature 37.0 Blood Gas Actual Respiration Rate 30 Blood Gas Modality VENT - CPAP FiO2 40.0 Blood Gas Low PEEP Setting 5.0 Blood Gas Pressure Support 10 Blood Gas Notified Whom JLD Blood Gas Notified Time 08/02/2017 12:09:42 PM Bedside Glucose 140 138 129 Test 08/02/17 22:19 08/03/17 00:21 08/03/17 03:53 08/03/17 05:21 Sodium Level 149 H 148 H Potassium Level 3.9 3.5 Chloride Level 114 H 113 H Carbon Dioxide Level 30 29 Anion Gap 9 10 Blood Urea Nitrogen 82 H 77 H Creatinine 1.27 H 1.19 H Glucose Level 123 148 Calcium Level 7.6 L 7.7 L Bedside Glucose 158 155 White Blood Count 10.2 Red Blood Count 2.92 L Hemoglobin 9.7 L Hematocrit 29.2 L Mean Corpuscular Volume 100.0 Mean Corpuscular Hemoglobin 33.2 H Mean Corpuscular Hemoglobin Concent 33.2 Red Cell Distribution Width 15.7 H Platelet Count 134 L Mean Platelet Volume 11.9 H Neutrophils % 88.5 H Lymphocytes % 5.4 L Monocytes % 5.4 Eosinophils % 0.0 Basophils % 0.1 Nucleated Red Blood Cells % 0.0 Neutrophils # 9.1 H Lymphocytes # 0.6 L Monocytes # 0.6 Eosinophils # 0.0 Basophils # 0.0 Nucleated Red Blood Cells # 0.0 Phosphorus Level 4.4 Magnesium Level 2.2 Test 08/03/17 07:00 08/03/17 08:56 Blood Gas Specimen Source Blood arterial Arterial Blood Date Drawn 08/03/2017 8:45:13 AM Arterial Blood pH (Temp corrected) 7.493 H Arterial Blood pCO2 (Temp correct) 33.6 L Arterial Blood pO2 (Temp corrected) 81.4 Arterial Blood HCO3 25.2 Arterial Blood Base Excess 2.2 Arterial Blood Oxygen Saturation 95.6 Sanjeev Test ACCEPTAB Arterial Blood Gas Puncture Site Right Radial Arterial Blood Carboxyhemoglobin 0.1 Arterial Blood Methemoglobin 0.4 Blood Gas A-a O2 Differential 165.2 H Oxyhemoglobin Percent 95.1 Total Hemoglobin 11.6 L Blood Gas Temperature 37.0 Blood Gas Respiration Rate 18.0 Blood Gas Actual Respiration Rate 24 Blood Gas Modality VENT - AC FiO2 40.0 Blood Gas Tidal Volume 500.0 Blood Gas Low PEEP Setting 5.0 Blood Gas Notified Whom DT Blood Gas Notified Time 08/03/2017 8:59:39 AM Bedside Glucose 164 Medications Medications Current Medications Morphine Sulfate (morphine) 2 mg Q4H PRN IV back pain Last administered on 08/02 20:27; Admin Dose 2 MG; Start 07/24/17 at 17:30 Ondansetron HCl (Zofran Inj) 4 mg Q6H PRN IV NAUSEA AND/OR VOMITING; Start at 19:00 Morphine Sulfate 4 mg 4 mg Q4H PRN IV PAIN LEVEL 7-10; Start 07/24/17 at 19:00 Fluconazole (Diflucan 200 Mg/ NS (Pmx)) 100 ml @ 100 mls/hr Q24H IVPB Last administered on 08/02/17 12:24; Admin Dose 100 MLS/HR; Start 07/25/17 at 11:00 Diagnostic Test (Pha) (Accu-Chek) 1 ea 02 XX Last administered on 08/02/17 01: 06; Admin Dose 1 EA; Start 07/26/17 at 02:00 Insulin Aspart (Novolog Insulin Pen) NOVOLOG *MILD* ALGORI... Q4 SC Last administered on 08/03/17 08:59; Admin Dose 1 UNIT; Start 07/25/17 at 13:00 Miscellaneous Information 1 ea NOTE XX ; Start 07/25/17 at 10:30 Glucose (Glutose) 15 gm Q15M PRN PO DECREASED GLUCOSE; Start 07/25/17 at 10:30 Glucose (Glutose) 22.5 gm Q15M PRN PO DECREASED GLUCOSE; Start 07/25/17 at 10: 30 Dextrose (D50w Syringe) 25 ml Q15M PRN IV DECREASED GLUCOSE; Start 07/25/17 at 10:30 Dextrose (D50w Syringe) 50 ml Q15M PRN IV DECREASED GLUCOSE; Start 07/25/17 at 10:30 Glucagon (Glucagen) 1 mg Q15M PRN IM DECREASED GLUCOSE; Start 07/25/17 at 10:30 Glucose (Glutose) 15 gm Q15M PRN BUCCAL DECREASED GLUCOSE; Start 07/25/17 at 10 :30 Nystatin 1 applic 1 applic BID TOP Last administered on 08/03/17 08:52; Admin Dose 1 APPLIC; Start 07/25/17 at 13:00 Norepinephrine/ Dextrose (Levophed/D5W) 500 ml @ 0 mls/hr TITRATE IV Last administered on 07/29/17 20:41; Admin Dose 15 MLS/HR; Start 07/25/17 at 17:30 IV Flush 10 ml 10 ml PRN PRN IV IV PROTOCOL; Start 07/25/17 at 17:30 Propofol 100 ml @ 3.327 mls/ hr Q12H IV Last administered on 08/03/17 07:00; Admin Dose 10.647 MLS/HR; Start 07/25/17 at 22:00 Midazolam HCl 50 ml @ 1 mls/hr TITRATE IV Last administered on 07/28/17 17:09 ; Admin Dose 3 MLS/HR; Start 07/26/17 at 10:30 Fentanyl 100 ml @ 2.5 mls/hr TITRATE IV Last administered on 07/29/17 02:08; Admin Dose 6 MLS/HR; Start 07/26/17 at 10:30 Vasopressin 60 unit/Dextrose 60 ml @ 1.2 mls/hr Q12H IV Last administered on 07/29/17 07:07; Admin Dose 0.6 MLS/HR; Start 07/26/17 at 13:00 Epinephrine/ Sodium Chloride (EPINEPHrine/NS) 250 ml @ 0 mls/hr TITRATE IV Last administered on 07/28/17 15:59; Admin Dose 22.5 MLS/HR; Start 07/26/17 at 14:30 Acetaminophen (Tylenol Liquid) 650 mg Q6H PRN NGT PAIN AND OR ELEVATED TEMP Last administered on 07/28/17 22:17; Admin Dose 650 MG; Start 07/27/17 at 20:30 Hydrocortisone 100 mg 100 mg Q8 IV Last administered on 08/03/17 05:22; Admin Dose 100 MG; Start 07/28/17 at 15:00 Meropenem/Sodium Chloride 50 ml @ 100 mls/hr Q12 IVPB Last administered on 08:52; Admin Dose 100 MLS/HR; Start 07/29/17 at 11:30 Dopamine HCl/ Dextrose 250 ml @ 8.318 mls/ hr TITRATE IV Last administered on 08/03/17 09:35; Admin Dose 8.318 MLS/HR; Start 07/29/17 at 19:30 Vancomycin HCl/ Sodium Chloride (Vancocin/NS) 150 ml @ 100 mls/hr Q24H IVPB Last administered on 08/03/17 00:22; Admin Dose 100 MLS/HR; Start 07/31/17 at 00:00 Famotidine (Pepcid Iv) 20 mg Q12 IV Last administered on 08/03/17 08:52; Admin Dose 20 MG; Start 08/01/17 at 09:00 Atropine Sulfate 0.5 mg 0.5 mg PRN PRN IV DECREASED HEART RATE Last administered on 08/03/17 09:36; Admin Dose 0.5 MG; Start 08/01/17 at 10:30 Dextrose (D5W) 1,000 ml @ 125 mls/hr Q8H IV Last administered on 08/03/17 08: 52; Admin Dose 125 MLS/HR; Start 08/02/17 at 08:30 MELVA SHANNON MD Aug 03, 2017 09:44
[2017-08-03] MEDS ORDERED: SOD CHLORIDE 0.9% 250 ML IV ONE (10:00)
[2017-08-03] MEDS: morphine 4 MG/ML VIAL IV PRN (10:05)
[2017-08-03] MEDS: FLUCONAZOLE 200 MG/NS (PMX) 100 ML IVPB SCH (10:16)
[2017-08-03] MEDS: POTASSIUM CHLORIDE 50 ML IVPB SCH ×3 (10:16→14:06)
[2017-08-03] MEDS: MIDAZOLAM (DRIP) 50 mg/50 mL 50 ML IV SCH (10:35)
--- NOTE | 2017-08-03 12:18 | RADRPT ---
PROCEDURE: XR Chest. CLINICAL INDICATION: Shortness of breath. TECHNIQUE: Single frontal view. COMPARISON: 07/30/2017. FINDINGS: The endotracheal tube, left arm PICC line, and nasogastric tube are in satisfactory position. Pulmonary edema is slightly improved. The lungs are otherwise clear. The heart is enlarged. There is no pleural effusion. There is no pneumothorax. IMPRESSION: 1. Slightly improved pulmonary edema. 2. No other change from 07/30/2017. RPTAT: QQ .Geoff Wood MD, MD Date Time Electronically viewed and signed by .Geoff Wood MD, MD on 08/03/2017 12:18 .R/
--- NOTE | 2017-08-03 14:48 | CONS ---
Date/Time of Note Date/Time of Note DATE: 08/03/17 TIME: 14:45 Consult Date/Type/Reason Admit Date/Time Jul 24, 2017 at 11:53 Initial Consult Date 07/25/17 Type of Consultation: Pulmonary Subjective On the vent. On dopamine gtt for sinus sammie to 30's Objective Vital Signs Date Time Temp Pulse Resp B/P Pulse Ox O2 Delivery O2 Flow Rate FiO2 08/03/17 14:15 51 18 151/63 98 Mechanical Ventilator 08/03/17 12:00 98.4 08/03/17 08:00 40 Intake and Output 08/02/17 08/02/17 08/03/17 15:00 23:00 07:00 Intake Total 1475 ml 1189 ml 1437.51 ml Output Total 763 ml 765 ml 730 ml Balance 712 ml 424 ml 707.51 ml Exam HEENT: Neck supple; no JVD; no LAD; + ET tube CVS: RRR, S1 and S2 CHEST: Bibasilar rales ABD: Soft, NT, + BS EXT: No c/c; ++ edema Results/Medications Result Diagram: 08/03/17 0353 08/03/17 0353 Results 24 hrs Laboratory Tests Test 08/02/17 17:09 08/02/17 21:02 08/02/17 22:19 08/03/17 00:21 Bedside Glucose 138 129 158 Sodium Level 149 H Potassium Level 3.9 Chloride Level 114 H Carbon Dioxide Level 30 Anion Gap 9 Blood Urea Nitrogen 82 H Creatinine 1.27 H Glucose Level 123 Calcium Level 7.6 L Test 08/03/17 03:53 08/03/17 05:21 08/03/17 07:00 08/03/17 08:56 White Blood Count 10.2 Red Blood Count 2.92 L Hemoglobin 9.7 L Hematocrit 29.2 L Mean Corpuscular Volume 100.0 Mean Corpuscular Hemoglobin 33.2 H Mean Corpuscular Hemoglobin Concent 33.2 Red Cell Distribution Width 15.7 H Platelet Count 134 L Mean Platelet Volume 11.9 H Neutrophils % 88.5 H Lymphocytes % 5.4 L Monocytes % 5.4 Eosinophils % 0.0 Basophils % 0.1 Nucleated Red Blood Cells % 0.0 Neutrophils # 9.1 H Lymphocytes # 0.6 L Monocytes # 0.6 Eosinophils # 0.0 Basophils # 0.0 Nucleated Red Blood Cells # 0.0 Sodium Level 148 H Potassium Level 3.5 Chloride Level 113 H Carbon Dioxide Level 29 Anion Gap 10 Blood Urea Nitrogen 77 H Creatinine 1.19 H Glucose Level 148 Calcium Level 7.7 L Phosphorus Level 4.4 Magnesium Level 2.2 Bedside Glucose 155 164 Blood Gas Specimen Source Blood arterial Arterial Blood Date Drawn 08/03/2017 8:45:13 AM Arterial Blood pH (Temp corrected) 7.493 H Arterial Blood pCO2 (Temp correct) 33.6 L Arterial Blood pO2 (Temp corrected) 81.4 Arterial Blood HCO3 25.2 Arterial Blood Base Excess 2.2 Arterial Blood Oxygen Saturation 95.6 Sanjeev Test ACCEPTAB Arterial Blood Gas Puncture Site Right Radial Arterial Blood Carboxyhemoglobin 0.1 Arterial Blood Methemoglobin 0.4 Blood Gas A-a O2 Differential 165.2 H Oxyhemoglobin Percent 95.1 Total Hemoglobin 11.6 L Blood Gas Temperature 37.0 Blood Gas Respiration Rate 18.0 Blood Gas Actual Respiration Rate 24 Blood Gas Modality VENT - AC FiO2 40.0 Blood Gas Tidal Volume 500.0 Blood Gas Low PEEP Setting 5.0 Blood Gas Notified Whom DT Blood Gas Notified Time 08/03/2017 8:59:39 AM Test 08/03/17 12:51 Bedside Glucose 163 Medications Current Medications Morphine Sulfate (morphine) 2 mg Q4H PRN IV back pain Last administered on 08/02 20:27; Admin Dose 2 MG; Start 07/24/17 at 17:30 Ondansetron HCl (Zofran Inj) 4 mg Q6H PRN IV NAUSEA AND/OR VOMITING; Start at 19:00 Morphine Sulfate 4 mg 4 mg Q4H PRN IV PAIN LEVEL 7-10 Last administered on 08/03 10:05; Admin Dose 4 MG; Start 07/24/17 at 19:00 Fluconazole (Diflucan 200 Mg/ NS (Pmx)) 100 ml @ 100 mls/hr Q24H IVPB Last administered on 08/03/17 10:16; Admin Dose 100 MLS/HR; Start 07/25/17 at 11:00 Diagnostic Test (Pha) (Accu-Chek) 1 ea 02 XX Last administered on 08/02/17 01: 06; Admin Dose 1 EA; Start 07/26/17 at 02:00 Insulin Aspart (Novolog Insulin Pen) NOVOLOG *MILD* ALGORI... Q4 SC Last administered on 08/03/17 12:54; Admin Dose 1 UNIT; Start 07/25/17 at 13:00 Miscellaneous Information 1 ea NOTE XX ; Start 07/25/17 at 10:30 Glucose (Glutose) 15 gm Q15M PRN PO DECREASED GLUCOSE; Start 07/25/17 at 10:30 Glucose (Glutose) 22.5 gm Q15M PRN PO DECREASED GLUCOSE; Start 07/25/17 at 10: 30 Dextrose (D50w Syringe) 25 ml Q15M PRN IV DECREASED GLUCOSE; Start 07/25/17 at 10:30 Dextrose (D50w Syringe) 50 ml Q15M PRN IV DECREASED GLUCOSE; Start 07/25/17 at 10:30 Glucagon (Glucagen) 1 mg Q15M PRN IM DECREASED GLUCOSE; Start 07/25/17 at 10:30 Glucose (Glutose) 15 gm Q15M PRN BUCCAL DECREASED GLUCOSE; Start 07/25/17 at 10 :30 Nystatin 1 applic 1 applic BID TOP Last administered on 08/03/17 08:52; Admin Dose 1 APPLIC; Start 07/25/17 at 13:00 Norepinephrine/ Dextrose (Levophed/D5W) 500 ml @ 0 mls/hr TITRATE IV Last administered on 07/29/17 20:41; Admin Dose 15 MLS/HR; Start 07/25/17 at 17:30 IV Flush 10 ml 10 ml PRN PRN IV IV PROTOCOL; Start 07/25/17 at 17:30 Propofol 100 ml @ 3.327 mls/ hr Q12H IV Last administered on 08/03/17 07:00; Admin Dose 10.647 MLS/HR; Start 07/25/17 at 22:00 Midazolam HCl 50 ml @ 1 mls/hr TITRATE IV Last administered on 08/03/17 10:35 ; Admin Dose 2 MLS/HR; Start 07/26/17 at 10:30 Fentanyl 100 ml @ 2.5 mls/hr TITRATE IV Last administered on 07/29/17 02:08; Admin Dose 6 MLS/HR; Start 07/26/17 at 10:30 Vasopressin 60 unit/Dextrose 60 ml @ 1.2 mls/hr Q12H IV Last administered on 07/29/17 07:07; Admin Dose 0.6 MLS/HR; Start 07/26/17 at 13:00 Epinephrine/ Sodium Chloride (EPINEPHrine/NS) 250 ml @ 0 mls/hr TITRATE IV Last administered on 07/28/17 15:59; Admin Dose 22.5 MLS/HR; Start 07/26/17 at 14:30 Acetaminophen (Tylenol Liquid) 650 mg Q6H PRN NGT PAIN AND OR ELEVATED TEMP Last administered on 07/28/17 22:17; Admin Dose 650 MG; Start 07/27/17 at 20:30 Hydrocortisone 100 mg 100 mg Q8 IV Last administered on 08/03/17 14:06; Admin Dose 100 MG; Start 07/28/17 at 15:00 Meropenem/Sodium Chloride 50 ml @ 100 mls/hr Q12 IVPB Last administered on 08:52; Admin Dose 100 MLS/HR; Start 07/29/17 at 11:30 Dopamine HCl/ Dextrose 250 ml @ 8.318 mls/ hr TITRATE IV Last administered on 08/03/17 09:35; Admin Dose 8.318 MLS/HR; Start 07/29/17 at 19:30 Vancomycin HCl/ Sodium Chloride (Vancocin/NS) 150 ml @ 100 mls/hr Q24H IVPB Last administered on 08/03/17 00:22; Admin Dose 100 MLS/HR; Start 07/31/17 at 00:00 Famotidine (Pepcid Iv) 20 mg Q12 IV Last administered on 08/03/17 08:52; Admin Dose 20 MG; Start 08/01/17 at 09:00 Atropine Sulfate 0.5 mg 0.5 mg PRN PRN IV DECREASED HEART RATE Last administered on 08/03/17 09:36; Admin Dose 0.5 MG; Start 08/01/17 at 10:30 Dextrose 1,000 ml @ 150 mls/hr Q6H40M IV Last administered on 08/03/17 14:39 ; Admin Dose 150 MLS/HR; Start 08/02/17 at 08:30 Potassium Chloride (KCl 20 MEQ/50 ML SW) 50 ml @ 25 mls/hr Q2H IVPB Last administered on 08/03/17 14:06; Admin Dose 25 MLS/HR; Start 08/03/17 at 10:00; Stop 08/03/17 at 15:59 Assessment/Plan Additional Assessment/Plan IMP: 1. Encephalopathy likely toxic metabolic appears to be slowly resolving this morning. 2. Hypoxemic and hypercapnic respiratory failure, continues mechanical ventilation. 3. Status post gram-negative septic shock 4. Sinus Bradycardia--rule out hypothyroidism 5. Renal insufficiency RECS: 1. Tube feeding as tolerated 2. Continue broad-spectrum antibiotic coverage, 3. Stat Thyroid Fxn testing 4. Continue mechanical ventilation 5. Overall prognosis guarded. 6. TF/Free H20 Critical care time 40 minutes NEEMA CABEZAS MD Aug 03, 2017 14:48
[2017-08-03 16:04] LABS: T3 UPTAKE 40.9 % (23.5-40.5)
[2017-08-04] VITALS (66 sets, daily range): BP systolic 90–159; BP diastolic 45–115; PULSE 35–68; RESP 15–25
[2017-08-04] MEDS: VASOPRESSIN 60 UNIT in DEXTROSE 5% 57 ML IV SCH ×3 (00:09→23:45)
[2017-08-04] MEDS: VANCOMYCIN 750 MG in SOD CHLORIDE 0.9% 150 ML IVPB SCH ×2 (00:57→22:45)
[2017-08-04] MEDS: INSULIN ASPART [NOVOLOG] 3 ML PEN SC SCH ×6 (01:00→21:00)
[2017-08-04] MEDS: ACCU-CHEK XX SCH ×2 (02:00→23:46)
[2017-08-04 04:43] LABS: ABNORMAL IP MESSAGE 1; BASOPHILS % 0.1 % (0.0-2.0); HEMATOCRIT 32.7 % (37.0-47.0); HEMOGLOBIN 10.8 g/dl (12.0-16.0); LYMPHOCYTES # 0.6 10^3/ul (0.8-2.9); LYMPHOCYTES % 5.2 % (15.0-51.0); MEAN CORPUSCULAR HEMOGLOBIN 33.9 pg (29.0-33.0); MEAN CORPUSCULAR VOLUME 102.5 fl (82.0-101.0); MEAN PLATELET VOLUME 11.6 fl (7.4-10.4); MONOCYTE # 0.6 10^3/ul (0.3-0.9); MONOCYTES % 5.6 % (0.0-11.0); NEUTROPHIL # 9.7 10^3/ul (1.6-7.5); NEUTROPHILS % 88.2 % (39.0-77.0); PLATELET COUNT 163 10^3/UL (140-415); RED BLOOD COUNT 3.19 10^6/ul (4.20-5.40); RED CELL DISTRIBUTION WIDTH 15.6 % (11.5-14.5)
[2017-08-04 04:58] LABS: CALCIUM 7.8 mg/dl (8.4-10.2); CREATININE 0.79 mg/dl (0.44-1.00); PHOSPHORUS 3.5 mg/dl (2.5-4.9); POTASSIUM 3.5 mmol/L (3.5-5.1)
[2017-08-04 05:23] LABS: ALBUMIN 2.5 g/dl (3.3-4.9); ALBUMIN/GLOBULIN RATIO 0.8; BILIRUBIN,INDIRECT 0.5 mg/dl (0-1.1); BILIRUBIN,TOTAL 0.5 mg/dl (0.2-1.3); CREATININE 0.77 mg/dl (0.44-1.00); POTASSIUM 3.7 mmol/L (3.5-5.1); TOTAL PROTEIN 5.6 g/dl (6.1-8.1)
[2017-08-04 05:25] LABS: AADO2 Arterial 78.8 mmHg (7.0-24.0); Allen Test ACCEPTAB; Arterial Base Excess 1.9 mmol/L (-3.0-3); Arterial COHb 0.5 % (0.0-3.0); Arterial Fraction of Oxyhgb 95.6 % (93.0-99.0); Arterial HCO3 25.2 mmol/L (22.0-26.0); Arterial MetHb 0.4 % (0.0-1.5); Arterial Total Hemglobin 13.1 g/dl (12.0-18.0); MODE VENT - AC
[2017-08-04] MEDS: HYDROCORTISONE 100 MG INJ IV SCH ×3 (05:36→22:04)
[2017-08-04] MEDS: MIDAZOLAM (DRIP) 50 mg/50 mL 50 ML IV SCH (05:36)
[2017-08-04] MEDS: DEXTROSE 5% 1,000 ML IV SCH ×4 (05:36→22:04)
[2017-08-04] MEDS: ACETAMINOPHEN 650MG/20.3ML CUP NGT PRN (05:44)
[2017-08-04 05:50] LABS: POSITIVE DIFF @See below
--- NOTE | 2017-08-04 08:40 | PN ---
Date/Time of Note Date/Time of Note DATE: 08/04/17 TIME: 08:35 Assessment/Plan VTE Prophylaxis VTE Prophylaxis Intervention: heparin Lines/Catheters IV Catheter Type (from [facility]): PICC Line Central line still needed: Yes Urinary Cath still in place: Yes Reason Cath still needed: urinary retention Assessment/Plan Problems: (1) Cholelithiasis Status: Chronic Comment: I am still concerned of this patient does have a significant gallbladder issue. When she is off of the interventions i.e. and intubation mechanical ventilation and she needs a HIDA scan and/or an MRCP to further elucidate this. Qualifiers: Cholelithiasis location: gallbladder Cholecystitis presence: without cholecystitis Biliary obstruction: without biliary obstruction Qualified Code : K80.20 - Calculus of gallbladder without cholecystitis without obstruction (2) Septic shock due to Escherichia coli Status: Acute Comment: She is improved nicely although she has enormous total body volume excess with intravascular depletion. To try and deal with this we will make making some adjustments see below (3) Respiratory failure Status: Acute Comment: Significantly improved although she is still on the ventilator. Extubation as per the timing from the pulmonary consultants Qualifiers: Chronicity: acute Respiratory failure complication: hypoxia and hypercapnia Qualified Code: J96.01 - Acute respiratory failure with hypoxia and hypercapnia (4) Septicemia due to Gram negative organism Status: Acute Comment: She remains on dopamine although this is actually for bradycardia dysrhythmia as opposed to set holding up her blood pressure. (5) Acute renal failure (ARF) Status: Acute Comment: Significantly improved. Part of this is due to the fluid and electrolyte shifts. She is intravascularly depleted. For purpose of anti- thrombosis as well as to deal with the excess fluid in the lower extremities were can use NATY hose which will enforce a great deal the fluid intravascularly which will improve several of her metabolic parameters. In addition with her hypernatremia going to increase the flushes with her tube feedings Qualifiers: Acute renal failure type: with acute renal cortical necrosis Qualified Code : N17.1 - Acute renal failure with acute cortical necrosis (6) UTI (urinary tract infection) Status: Acute Comment: On appropriate antibiotics Qualifiers: Urinary tract infection type: acute cystitis Hematuria presence: without hematuria Qualified Code: N30.00 - Acute cystitis without hematuria Subjective 24 Hr Interval Summary Free Text/Dictation Patient remains intubated also with an oral feeding tube. She opens her eyes and follows simple straightforward commands including two-step commands Subjective hx not possible: pt non-verbal Constitutional: no complaints Exam/Review of Systems Vital Signs Vitals Vital Signs Date Time Temp Pulse Resp B/P Pulse Ox O2 Delivery O2 Flow Rate FiO2 08/04/17 06:30 49 20 144/61 98 08/04/17 06:00 Mechanical Ventilator 08/04/17 05:25 30 08/04/17 04:00 99.0 Intake and Output 08/03/17 08/03/17 08/04/17 15:00 23:00 07:00 Intake Total 2042.2 ml 1949.974 ml 1262.959 ml Output Total 1475 ml 1300 ml 840 ml Balance 567.2 ml 649.974 ml 422.959 ml Exam Constitutional: non-verbal Head: atraumatic, normocephalic ENMT: intubated Neck: non-tender, supple Respiratory: clear to auscultation, normal air movement Cardiovascular: nl pulses, regular rate and rhythm Extremities: edema (Plus pitting edema) Skin: other (2+ pitting edema) Results Result Diagram: 08/04/17 0400 08/04/17 0400 Results 24 hrs Laboratory Tests Test 08/03/17 08:56 08/03/17 12:51 08/03/17 14:57 08/03/17 17:12 Bedside Glucose 164 163 153 Free Thyroxine Index 1.76 Thyroxine (T4) 4.3 L Triiodothyronine (T3) Uptake 40.9 H Test 08/03/17 21:05 08/04/17 00:57 08/04/17 04:00 08/04/17 05:00 Bedside Glucose 169 163 White Blood Count 11.0 H Red Blood Count 3.19 L Hemoglobin 10.8 L Hematocrit 32.7 L Mean Corpuscular Volume 102.5 H Mean Corpuscular Hemoglobin 33.9 H Mean Corpuscular Hemoglobin Concent 33.0 Red Cell Distribution Width 15.6 H Platelet Count 163 # Mean Platelet Volume 11.6 H Neutrophils % 88.2 H Lymphocytes % 5.2 L Monocytes % 5.6 Eosinophils % 0.0 Basophils % 0.1 Nucleated Red Blood Cells % 0.0 Neutrophils # 9.7 H Lymphocytes # 0.6 L Monocytes # 0.6 Eosinophils # 0.0 Basophils # 0.0 Nucleated Red Blood Cells # 0.0 Sodium Level 150 H Potassium Level 3.5 Chloride Level 114 H Carbon Dioxide Level 30 Anion Gap 10 Blood Urea Nitrogen 53 H Creatinine 0.79 Glucose Level 195 Calcium Level 7.8 L Phosphorus Level 3.5 Magnesium Level 2.0 Total Bilirubin 0.5 Direct Bilirubin 0.00 Indirect Bilirubin 0.5 Aspartate Amino Transf (AST/SGOT) 45 Alanine Aminotransferase (ALT/SGPT) 48 Alkaline Phosphatase 187 H Total Protein 5.6 L Albumin 2.5 L Globulin 3.10 Albumin/Globulin Ratio 0.80 Blood Gas Specimen Source Blood arterial Arterial Blood Date Drawn 08/04/2017 5:10:34 AM Arterial Blood pH (Temp corrected) 7.475 H Arterial Blood pCO2 (Temp correct) 35.0 Arterial Blood pO2 (Temp corrected) 94.0 Arterial Blood HCO3 25.2 Arterial Blood Base Excess 1.9 Arterial Blood Oxygen Saturation 96.5 Sanjeev Test ACCEPTAB Arterial Blood Gas Puncture Site Left Radial Arterial Blood Carboxyhemoglobin 0.5 Arterial Blood Methemoglobin 0.4 Blood Gas A-a O2 Differential 78.8 H Oxyhemoglobin Percent 95.6 Total Hemoglobin 13.1 Blood Gas Temperature 37.0 Blood Gas Respiration Rate 18.0 Blood Gas Actual Respiration Rate 19 Blood Gas Modality VENT - AC FiO2 30.0 Blood Gas Tidal Volume 500.0 Blood Gas Notified Whom UP Blood Gas Notified Time 08/04/2017 5:23:42 AM Test 08/04/17 05:39 Bedside Glucose 169 Medications Medications Current Medications Morphine Sulfate (morphine) 2 mg Q4H PRN IV back pain Last administered on 08/02 20:27; Admin Dose 2 MG; Start 07/24/17 at 17:30 Ondansetron HCl (Zofran Inj) 4 mg Q6H PRN IV NAUSEA AND/OR VOMITING; Start at 19:00 Morphine Sulfate 4 mg 4 mg Q4H PRN IV PAIN LEVEL 7-10 Last administered on 08/03 10:05; Admin Dose 4 MG; Start 07/24/17 at 19:00 Fluconazole (Diflucan 200 Mg/ NS (Pmx)) 100 ml @ 100 mls/hr Q24H IVPB Last administered on 08/03/17 10:16; Admin Dose 100 MLS/HR; Start 07/25/17 at 11:00 Diagnostic Test (Pha) (Accu-Chek) 1 ea 02 XX Last administered on 08/02/17 01: 06; Admin Dose 1 EA; Start 07/26/17 at 02:00 Insulin Aspart (Novolog Insulin Pen) NOVOLOG *MILD* ALGORI... Q4 SC Last administered on 08/04/17 05:43; Admin Dose 1 UNIT; Start 07/25/17 at 13:00 Miscellaneous Information 1 ea NOTE XX ; Start 07/25/17 at 10:30 Glucose (Glutose) 15 gm Q15M PRN PO DECREASED GLUCOSE; Start 07/25/17 at 10:30 Glucose (Glutose) 22.5 gm Q15M PRN PO DECREASED GLUCOSE; Start 07/25/17 at 10: 30 Dextrose (D50w Syringe) 25 ml Q15M PRN IV DECREASED GLUCOSE; Start 07/25/17 at 10:30 Dextrose (D50w Syringe) 50 ml Q15M PRN IV DECREASED GLUCOSE; Start 07/25/17 at 10:30 Glucagon (Glucagen) 1 mg Q15M PRN IM DECREASED GLUCOSE; Start 07/25/17 at 10:30 Glucose (Glutose) 15 gm Q15M PRN BUCCAL DECREASED GLUCOSE; Start 07/25/17 at 10 :30 Nystatin 1 applic 1 applic BID TOP Last administered on 08/03/17 20:58; Admin Dose 1 APPLIC; Start 07/25/17 at 13:00 Norepinephrine/ Dextrose (Levophed/D5W) 500 ml @ 0 mls/hr TITRATE IV Last administered on 07/29/17 20:41; Admin Dose 15 MLS/HR; Start 07/25/17 at 17:30 IV Flush 10 ml 10 ml PRN PRN IV IV PROTOCOL; Start 07/25/17 at 17:30 Propofol 100 ml @ 3.327 mls/ hr Q12H IV Last administered on 08/03/17 07:00; Admin Dose 10.647 MLS/HR; Start 07/25/17 at 22:00 Midazolam HCl 50 ml @ 1 mls/hr TITRATE IV Last administered on 08/04/17 05:36 ; Admin Dose 1 MLS/HR; Start 07/26/17 at 10:30 Fentanyl 100 ml @ 2.5 mls/hr TITRATE IV Last administered on 07/29/17 02:08; Admin Dose 6 MLS/HR; Start 07/26/17 at 10:30 Vasopressin 60 unit/Dextrose 60 ml @ 1.2 mls/hr Q12H IV Last administered on 07/29/17 07:07; Admin Dose 0.6 MLS/HR; Start 07/26/17 at 13:00 Epinephrine/ Sodium Chloride (EPINEPHrine/NS) 250 ml @ 0 mls/hr TITRATE IV Last administered on 07/28/17 15:59; Admin Dose 22.5 MLS/HR; Start 07/26/17 at 14:30 Acetaminophen (Tylenol Liquid) 650 mg Q6H PRN NGT PAIN AND OR ELEVATED TEMP Last administered on 08/04/17 05:44; Admin Dose 650 MG; Start 07/27/17 at 20:30 Hydrocortisone 100 mg 100 mg Q8 IV Last administered on 08/04/17 05:36; Admin Dose 100 MG; Start 07/28/17 at 15:00 Meropenem/Sodium Chloride 50 ml @ 100 mls/hr Q12 IVPB Last administered on 20:59; Admin Dose 100 MLS/HR; Start 07/29/17 at 11:30 Dopamine HCl/ Dextrose 250 ml @ 8.318 mls/ hr TITRATE IV Last administered on 08/03/17 20:54; Admin Dose 16.637 MLS/HR; Start 07/29/17 at 19:30 Vancomycin HCl/ Sodium Chloride (Vancocin/NS) 150 ml @ 100 mls/hr Q24H IVPB Last administered on 08/04/17 00:57; Admin Dose 100 MLS/HR; Start 07/31/17 at 00:00 Famotidine (Pepcid Iv) 20 mg Q12 IV Last administered on 08/03/17 20:56; Admin Dose 20 MG; Start 08/01/17 at 09:00 Atropine Sulfate 0.5 mg 0.5 mg PRN PRN IV DECREASED HEART RATE Last administered on 08/03/17 09:36; Admin Dose 0.5 MG; Start 08/01/17 at 10:30 Dextrose (D5W) 1,000 ml @ 150 mls/hr Q6H40M IV Last administered on 10/8/17at 05:36; Admin Dose 150 MLS/HR; Start 08/02/17 at 08:30 TIANA JUNIOR MD Aug 04, 2017 08:40
[2017-08-04] MEDS: MEROPENEM 500MG/50 ML (PMX) 50 ML IVPB SCH ×2 (09:03→20:16)
[2017-08-04] MEDS: BALSAM PERU/CASTOR OIL 60 GM TUBE TOP SCH ×2 (09:03→21:16)
[2017-08-04] MEDS: FAMOTIDINE 20 MG INJ IV SCH ×2 (09:03→20:16)
[2017-08-04] MEDS: NYSTATIN 30 GM POWDER BTL TOP SCH ×2 (09:03→21:16)
[2017-08-04] MEDS: PROPOFOL 100 ML IV SCH ×2 (09:27→20:03)
--- NOTE | 2017-08-04 09:43 | CONS ---
Date/Time of Note Date/Time of Note DATE: 08/04/17 TIME: 09:39 Assessment/Plan Assessment/Plan Additional Assessment/Plan 1. Acute renal failure has resolved. 2. Hypernatremia persists despite positive fluid balance (IV D5W) without diarrhea or Temp (xs insensible fluid loss), I inc tube feeding water and rate of D5W. 3. Bradycardia persists, await cards follow up. (pacemaker ?) Consultation Date/Type/Reason Admit Date/Time Jul 24, 2017 at 11:53 Initial Consult Date 07/25/17 Type of Consultation: Pulmonary 24 HR Interval Summary Subjective hx not possible: other (Intubated and alert) Exam/Review of Systems Vital Signs Vitals Vital Signs Date Time Temp Pulse Resp B/P Pulse Ox O2 Delivery O2 Flow Rate FiO2 08/04/17 08:30 44 18 145/56 96 08/04/17 08:00 Mechanical Ventilator 08/04/17 07:30 97.8 08/04/17 05:25 30 Intake and Output 08/03/17 08/03/17 08/04/17 15:00 23:00 07:00 Intake Total 2042.2 ml 1949.974 ml 1302.959 ml Output Total 1475 ml 1300 ml 1040 ml Balance 567.2 ml 649.974 ml 262.959 ml Exam Neck: No jvd Respiratory: clear to auscultation, diminished breath sounds Cardiovascular: regular rate and rhythm Gastrointestinal: soft Extremities: edema (trace tibial and sacral edema) Results Result Diagram: 08/04/17 0400 08/04/17 0400 Results 24 hrs Laboratory Tests Test 08/03/17 12:51 08/03/17 14:57 08/03/17 17:12 08/03/17 21:05 Bedside Glucose 163 153 169 Free Thyroxine Index 1.76 Thyroxine (T4) 4.3 L Triiodothyronine (T3) Uptake 40.9 H Test 08/04/17 00:57 08/04/17 04:00 08/04/17 05:00 08/04/17 05:39 Bedside Glucose 163 169 White Blood Count 11.0 H Red Blood Count 3.19 L Hemoglobin 10.8 L Hematocrit 32.7 L Mean Corpuscular Volume 102.5 H Mean Corpuscular Hemoglobin 33.9 H Mean Corpuscular Hemoglobin Concent 33.0 Red Cell Distribution Width 15.6 H Platelet Count 163 # Mean Platelet Volume 11.6 H Neutrophils % 88.2 H Lymphocytes % 5.2 L Monocytes % 5.6 Eosinophils % 0.0 Basophils % 0.1 Nucleated Red Blood Cells % 0.0 Neutrophils # 9.7 H Lymphocytes # 0.6 L Monocytes # 0.6 Eosinophils # 0.0 Basophils # 0.0 Nucleated Red Blood Cells # 0.0 Sodium Level 150 H Potassium Level 3.5 Chloride Level 114 H Carbon Dioxide Level 30 Anion Gap 10 Blood Urea Nitrogen 53 H Creatinine 0.79 Glucose Level 195 Calcium Level 7.8 L Phosphorus Level 3.5 Magnesium Level 2.0 Total Bilirubin 0.5 Direct Bilirubin 0.00 Indirect Bilirubin 0.5 Aspartate Amino Transf (AST/SGOT) 45 Alanine Aminotransferase (ALT/SGPT) 48 Alkaline Phosphatase 187 H Total Protein 5.6 L Albumin 2.5 L Globulin 3.10 Albumin/Globulin Ratio 0.80 Blood Gas Specimen Source Blood arterial Arterial Blood Date Drawn 08/04/2017 5:10:34 AM Arterial Blood pH (Temp corrected) 7.475 H Arterial Blood pCO2 (Temp correct) 35.0 Arterial Blood pO2 (Temp corrected) 94.0 Arterial Blood HCO3 25.2 Arterial Blood Base Excess 1.9 Arterial Blood Oxygen Saturation 96.5 Sanjeev Test ACCEPTAB Arterial Blood Gas Puncture Site Left Radial Arterial Blood Carboxyhemoglobin 0.5 Arterial Blood Methemoglobin 0.4 Blood Gas A-a O2 Differential 78.8 H Oxyhemoglobin Percent 95.6 Total Hemoglobin 13.1 Blood Gas Temperature 37.0 Blood Gas Respiration Rate 18.0 Blood Gas Actual Respiration Rate 19 Blood Gas Modality VENT - AC FiO2 30.0 Blood Gas Tidal Volume 500.0 Blood Gas Notified Whom UP Blood Gas Notified Time 08/04/2017 5:23:42 AM Test 08/04/17 09:05 Bedside Glucose 156 Medications Medications Current Medications Morphine Sulfate (morphine) 2 mg Q4H PRN IV back pain Last administered on 08/02 20:27; Admin Dose 2 MG; Start 07/24/17 at 17:30 Ondansetron HCl (Zofran Inj) 4 mg Q6H PRN IV NAUSEA AND/OR VOMITING; Start at 19:00 Morphine Sulfate 4 mg 4 mg Q4H PRN IV PAIN LEVEL 7-10 Last administered on 08/03 10:05; Admin Dose 4 MG; Start 07/24/17 at 19:00 Fluconazole (Diflucan 200 Mg/ NS (Pmx)) 100 ml @ 100 mls/hr Q24H IVPB Last administered on 08/03/17 10:16; Admin Dose 100 MLS/HR; Start 07/25/17 at 11:00 Diagnostic Test (Pha) (Accu-Chek) 1 ea 02 XX Last administered on 08/02/17 01: 06; Admin Dose 1 EA; Start 07/26/17 at 02:00 Insulin Aspart (Novolog Insulin Pen) NOVOLOG *MILD* ALGORI... Q4 SC Last administered on 08/04/17 09:09; Admin Dose 1 UNIT; Start 07/25/17 at 13:00 Miscellaneous Information 1 ea NOTE XX ; Start 07/25/17 at 10:30 Glucose (Glutose) 15 gm Q15M PRN PO DECREASED GLUCOSE; Start 07/25/17 at 10:30 Glucose (Glutose) 22.5 gm Q15M PRN PO DECREASED GLUCOSE; Start 07/25/17 at 10: 30 Dextrose (D50w Syringe) 25 ml Q15M PRN IV DECREASED GLUCOSE; Start 07/25/17 at 10:30 Dextrose (D50w Syringe) 50 ml Q15M PRN IV DECREASED GLUCOSE; Start 07/25/17 at 10:30 Glucagon (Glucagen) 1 mg Q15M PRN IM DECREASED GLUCOSE; Start 07/25/17 at 10:30 Glucose (Glutose) 15 gm Q15M PRN BUCCAL DECREASED GLUCOSE; Start 07/25/17 at 10 :30 Nystatin 1 applic 1 applic BID TOP Last administered on 08/04/17 09:03; Admin Dose 1 APPLIC; Start 07/25/17 at 13:00 Norepinephrine/ Dextrose (Levophed/D5W) 500 ml @ 0 mls/hr TITRATE IV Last administered on 07/29/17 20:41; Admin Dose 15 MLS/HR; Start 07/25/17 at 17:30 IV Flush 10 ml 10 ml PRN PRN IV IV PROTOCOL; Start 07/25/17 at 17:30 Propofol 100 ml @ 3.327 mls/ hr Q12H IV Last administered on 08/03/17 07:00; Admin Dose 10.647 MLS/HR; Start 07/25/17 at 22:00 Midazolam HCl 50 ml @ 1 mls/hr TITRATE IV Last administered on 08/04/17 05:36 ; Admin Dose 1 MLS/HR; Start 07/26/17 at 10:30 Fentanyl 100 ml @ 2.5 mls/hr TITRATE IV Last administered on 07/29/17 02:08; Admin Dose 6 MLS/HR; Start 07/26/17 at 10:30 Vasopressin 60 unit/Dextrose 60 ml @ 1.2 mls/hr Q12H IV Last administered on 07/29/17 07:07; Admin Dose 0.6 MLS/HR; Start 07/26/17 at 13:00 Epinephrine/ Sodium Chloride (EPINEPHrine/NS) 250 ml @ 0 mls/hr TITRATE IV Last administered on 07/28/17 15:59; Admin Dose 22.5 MLS/HR; Start 07/26/17 at 14:30 Acetaminophen (Tylenol Liquid) 650 mg Q6H PRN NGT PAIN AND OR ELEVATED TEMP Last administered on 08/04/17 05:44; Admin Dose 650 MG; Start 07/27/17 at 20:30 Hydrocortisone 100 mg 100 mg Q8 IV Last administered on 08/04/17 05:36; Admin Dose 100 MG; Start 07/28/17 at 15:00 Meropenem/Sodium Chloride 50 ml @ 100 mls/hr Q12 IVPB Last administered on 09:03; Admin Dose 100 MLS/HR; Start 07/29/17 at 11:30 Dopamine HCl/ Dextrose 250 ml @ 8.318 mls/ hr TITRATE IV Last administered on 08/03/17 20:54; Admin Dose 16.637 MLS/HR; Start 07/29/17 at 19:30 Vancomycin HCl/ Sodium Chloride (Vancocin/NS) 150 ml @ 100 mls/hr Q24H IVPB Last administered on 08/04/17 00:57; Admin Dose 100 MLS/HR; Start 07/31/17 at 00:00 Famotidine (Pepcid Iv) 20 mg Q12 IV Last administered on 08/04/17 09:03; Admin Dose 20 MG; Start 08/01/17 at 09:00 Atropine Sulfate 0.5 mg 0.5 mg PRN PRN IV DECREASED HEART RATE Last administered on 08/03/17 09:36; Admin Dose 0.5 MG; Start 08/01/17 at 10:30 Dextrose (D5W) 1,000 ml @ 175 mls/hr Q5H43M IV Last administered on 08/04/17 09:21; Admin Dose 150 MLS/HR; Start 08/02/17 at 08:30 MELVA SHANNON MD Aug 04, 2017 09:43
[2017-08-04] MEDS: POTASSIUM CHLORIDE 50 ML IVPB SCH ×3 (11:06→15:03)
[2017-08-04] MEDS: FLUCONAZOLE 200 MG/NS (PMX) 100 ML IVPB SCH (11:23)
[2017-08-04] MEDS: DOPamine-D5W 1.6 MG/ML 250 ML IV SCH (12:16)
--- NOTE | 2017-08-04 13:36 | CONS ---
Date/Time of Note Date/Time of Note DATE: 08/04/17 TIME: 13:35 Assessment/Plan Assessment/Plan Chief Complaint/Hosp Course Full note dictated [id number] Problems: Consultation Date/Type/Reason Admit Date/Time Jul 24, 2017 at 11:53 Initial Consult Date 07/25/17 Type of Consultation: ID Exam/Review of Systems Vital Signs Vitals Vital Signs Date Time Temp Pulse Resp B/P Pulse Ox O2 Delivery O2 Flow Rate FiO2 08/04/17 13:00 41 18 93/45 97 Mechanical Ventilator 08/04/17 11:00 98.0 08/04/17 05:25 30 Intake and Output 08/03/17 08/03/17 08/04/17 15:00 23:00 07:00 Intake Total 2042.2 ml 1949.974 ml 1302.959 ml Output Total 1475 ml 1300 ml 1040 ml Balance 567.2 ml 649.974 ml 262.959 ml Results Result Diagram: 08/04/17 0400 08/04/17 0400 Results 24 hrs Laboratory Tests Test 08/03/17 14:57 08/03/17 17:12 08/03/17 21:05 08/04/17 00:57 Free Thyroxine Index 1.76 Thyroxine (T4) 4.3 L Triiodothyronine (T3) Uptake 40.9 H Bedside Glucose 153 169 163 Test 08/04/17 04:00 08/04/17 05:00 08/04/17 05:39 08/04/17 09:05 White Blood Count 11.0 H Red Blood Count 3.19 L Hemoglobin 10.8 L Hematocrit 32.7 L Mean Corpuscular Volume 102.5 H Mean Corpuscular Hemoglobin 33.9 H Mean Corpuscular Hemoglobin Concent 33.0 Red Cell Distribution Width 15.6 H Platelet Count 163 # Mean Platelet Volume 11.6 H Neutrophils % 88.2 H Lymphocytes % 5.2 L Monocytes % 5.6 Eosinophils % 0.0 Basophils % 0.1 Nucleated Red Blood Cells % 0.0 Neutrophils # 9.7 H Lymphocytes # 0.6 L Monocytes # 0.6 Eosinophils # 0.0 Basophils # 0.0 Nucleated Red Blood Cells # 0.0 Sodium Level 150 H Potassium Level 3.5 Chloride Level 114 H Carbon Dioxide Level 30 Anion Gap 10 Blood Urea Nitrogen 53 H Creatinine 0.79 Glucose Level 195 Calcium Level 7.8 L Phosphorus Level 3.5 Magnesium Level 2.0 Total Bilirubin 0.5 Direct Bilirubin 0.00 Indirect Bilirubin 0.5 Aspartate Amino Transf (AST/SGOT) 45 Alanine Aminotransferase (ALT/SGPT) 48 Alkaline Phosphatase 187 H Total Protein 5.6 L Albumin 2.5 L Globulin 3.10 Albumin/Globulin Ratio 0.80 Thyroid Stimulating Hormone (TSH) 0.653 Free Thyroxine 0.52 L Blood Gas Specimen Source Blood arterial Arterial Blood Date Drawn 08/04/2017 5:10:34 AM Arterial Blood pH (Temp corrected) 7.475 H Arterial Blood pCO2 (Temp correct) 35.0 Arterial Blood pO2 (Temp corrected) 94.0 Arterial Blood HCO3 25.2 Arterial Blood Base Excess 1.9 Arterial Blood Oxygen Saturation 96.5 Sanjeev Test ACCEPTAB Arterial Blood Gas Puncture Site Left Radial Arterial Blood Carboxyhemoglobin 0.5 Arterial Blood Methemoglobin 0.4 Blood Gas A-a O2 Differential 78.8 H Oxyhemoglobin Percent 95.6 Total Hemoglobin 13.1 Blood Gas Temperature 37.0 Blood Gas Respiration Rate 18.0 Blood Gas Actual Respiration Rate 19 Blood Gas Modality VENT - AC FiO2 30.0 Blood Gas Tidal Volume 500.0 Blood Gas Notified Whom UP Blood Gas Notified Time 08/04/2017 5:23:42 AM Bedside Glucose 169 156 Test 08/04/17 12:26 Bedside Glucose 141 Medications Medications Current Medications Morphine Sulfate (morphine) 2 mg Q4H PRN IV back pain Last administered on 08/02 20:27; Admin Dose 2 MG; Start 07/24/17 at 17:30 Ondansetron HCl (Zofran Inj) 4 mg Q6H PRN IV NAUSEA AND/OR VOMITING; Start at 19:00 Morphine Sulfate 4 mg 4 mg Q4H PRN IV PAIN LEVEL 7-10 Last administered on 08/03 10:05; Admin Dose 4 MG; Start 07/24/17 at 19:00 Fluconazole (Diflucan 200 Mg/ NS (Pmx)) 100 ml @ 100 mls/hr Q24H IVPB Last administered on 08/04/17 11:23; Admin Dose 100 MLS/HR; Start 07/25/17 at 11:00 Diagnostic Test (Pha) (Accu-Chek) 1 ea 02 XX Last administered on 08/02/17 01: 06; Admin Dose 1 EA; Start 07/26/17 at 02:00 Insulin Aspart (Novolog Insulin Pen) NOVOLOG *MILD* ALGORI... Q4 SC Last administered on 08/04/17 12:29; Admin Dose 1 UNIT; Start 07/25/17 at 13:00 Miscellaneous Information 1 ea NOTE XX ; Start 07/25/17 at 10:30 Glucose (Glutose) 15 gm Q15M PRN PO DECREASED GLUCOSE; Start 07/25/17 at 10:30 Glucose (Glutose) 22.5 gm Q15M PRN PO DECREASED GLUCOSE; Start 07/25/17 at 10: 30 Dextrose (D50w Syringe) 25 ml Q15M PRN IV DECREASED GLUCOSE; Start 07/25/17 at 10:30 Dextrose (D50w Syringe) 50 ml Q15M PRN IV DECREASED GLUCOSE; Start 07/25/17 at 10:30 Glucagon (Glucagen) 1 mg Q15M PRN IM DECREASED GLUCOSE; Start 07/25/17 at 10:30 Glucose (Glutose) 15 gm Q15M PRN BUCCAL DECREASED GLUCOSE; Start 07/25/17 at 10 :30 Nystatin 1 applic 1 applic BID TOP Last administered on 08/04/17 09:03; Admin Dose 1 APPLIC; Start 07/25/17 at 13:00 Norepinephrine/ Dextrose (Levophed/D5W) 500 ml @ 0 mls/hr TITRATE IV Last administered on 07/29/17 20:41; Admin Dose 15 MLS/HR; Start 07/25/17 at 17:30 IV Flush 10 ml 10 ml PRN PRN IV IV PROTOCOL; Start 07/25/17 at 17:30 Propofol 100 ml @ 3.327 mls/ hr Q12H IV Last administered on 08/03/17 07:00; Admin Dose 10.647 MLS/HR; Start 07/25/17 at 22:00 Midazolam HCl 50 ml @ 1 mls/hr TITRATE IV Last administered on 08/04/17 05:36 ; Admin Dose 1 MLS/HR; Start 07/26/17 at 10:30 Fentanyl 100 ml @ 2.5 mls/hr TITRATE IV Last administered on 07/29/17 02:08; Admin Dose 6 MLS/HR; Start 07/26/17 at 10:30 Vasopressin 60 unit/Dextrose 60 ml @ 1.2 mls/hr Q12H IV Last administered on 07/29/17 07:07; Admin Dose 0.6 MLS/HR; Start 07/26/17 at 13:00 Epinephrine/ Sodium Chloride (EPINEPHrine/NS) 250 ml @ 0 mls/hr TITRATE IV Last administered on 07/28/17 15:59; Admin Dose 22.5 MLS/HR; Start 07/26/17 at 14:30 Acetaminophen (Tylenol Liquid) 650 mg Q6H PRN NGT PAIN AND OR ELEVATED TEMP Last administered on 08/04/17 05:44; Admin Dose 650 MG; Start 07/27/17 at 20:30 Hydrocortisone 100 mg 100 mg Q8 IV Last administered on 08/04/17 05:36; Admin Dose 100 MG; Start 07/28/17 at 15:00 Meropenem/Sodium Chloride 50 ml @ 100 mls/hr Q12 IVPB Last administered on 09:03; Admin Dose 100 MLS/HR; Start 07/29/17 at 11:30 Dopamine HCl/ Dextrose 250 ml @ 8.318 mls/ hr TITRATE IV Last administered on 08/04/17 12:16; Admin Dose 16.637 MLS/HR; Start 07/29/17 at 19:30 Vancomycin HCl/ Sodium Chloride (Vancocin/NS) 150 ml @ 100 mls/hr Q24H IVPB Last administered on 08/04/17 00:57; Admin Dose 100 MLS/HR; Start 07/31/17 at 00:00 Famotidine (Pepcid Iv) 20 mg Q12 IV Last administered on 08/04/17 09:03; Admin Dose 20 MG; Start 08/01/17 at 09:00 Atropine Sulfate 0.5 mg 0.5 mg PRN PRN IV DECREASED HEART RATE Last administered on 08/03/17 09:36; Admin Dose 0.5 MG; Start 08/01/17 at 10:30 Dextrose 1,000 ml @ 175 mls/hr Q5H43M IV Last administered on 08/04/17 09:21 ; Admin Dose 150 MLS/HR; Start 08/02/17 at 08:30 Potassium Chloride (KCl 20 MEQ/50 ML SW) 50 ml @ 25 mls/hr Q2H IVPB Last administered on 08/04/17t 12:16; Admin Dose 25 MLS/HR; Start 08/04/17 at 10:00; Stop 08/04/17 at 15:59 ERICKA LEGER NP Aug 04, 2017 13:36
--- NOTE | 2017-08-04 14:49 | CONS ---
Date/Time of Note Date/Time of Note DATE: 08/04/17 TIME: 14:47 Consult Date/Type/Reason Admit Date/Time Jul 24, 2017 at 11:53 Initial Consult Date 07/25/17 Type of Consultation: Pulm/CCM Subjective Awake and alert on the vent. Objective Vital Signs Date Time Temp Pulse Resp B/P Pulse Ox O2 Delivery O2 Flow Rate FiO2 08/04/17 13:47 35 08/04/17 13:00 18 93/45 97 Mechanical Ventilator 08/04/17 11:00 98.0 08/04/17 08:00 30 Intake and Output 08/03/17 08/03/17 08/04/17 15:00 23:00 07:00 Intake Total 2042.2 ml 1949.974 ml 1470.559 ml Output Total 1475 ml 1300 ml 1040 ml Balance 567.2 ml 649.974 ml 430.559 ml Exam HEENT: Neck supple; no JVD; no LAD; + ET tube CVS: RRR, S1 and S2 CHEST: Bibasilar rales ABD: Soft, NT, + BS EXT: No c/c; ++ edema Results/Medications Result Diagram: 08/04/17 0400 08/04/17 0400 Results 24 hrs Laboratory Tests Test 08/03/17 14:57 08/03/17 17:12 08/03/17 21:05 08/04/17 00:57 Free Thyroxine Index 1.76 Thyroxine (T4) 4.3 L Triiodothyronine (T3) Uptake 40.9 H Bedside Glucose 153 169 163 Test 08/04/17 04:00 08/04/17 05:00 08/04/17 05:39 08/04/17 09:05 White Blood Count 11.0 H Red Blood Count 3.19 L Hemoglobin 10.8 L Hematocrit 32.7 L Mean Corpuscular Volume 102.5 H Mean Corpuscular Hemoglobin 33.9 H Mean Corpuscular Hemoglobin Concent 33.0 Red Cell Distribution Width 15.6 H Platelet Count 163 # Mean Platelet Volume 11.6 H Neutrophils % 88.2 H Lymphocytes % 5.2 L Monocytes % 5.6 Eosinophils % 0.0 Basophils % 0.1 Nucleated Red Blood Cells % 0.0 Neutrophils # 9.7 H Lymphocytes # 0.6 L Monocytes # 0.6 Eosinophils # 0.0 Basophils # 0.0 Nucleated Red Blood Cells # 0.0 Sodium Level 150 H Potassium Level 3.5 Chloride Level 114 H Carbon Dioxide Level 30 Anion Gap 10 Blood Urea Nitrogen 53 H Creatinine 0.79 Glucose Level 195 Calcium Level 7.8 L Phosphorus Level 3.5 Magnesium Level 2.0 Total Bilirubin 0.5 Direct Bilirubin 0.00 Indirect Bilirubin 0.5 Aspartate Amino Transf (AST/SGOT) 45 Alanine Aminotransferase (ALT/SGPT) 48 Alkaline Phosphatase 187 H Total Protein 5.6 L Albumin 2.5 L Globulin 3.10 Albumin/Globulin Ratio 0.80 Thyroid Stimulating Hormone (TSH) 0.653 Free Thyroxine 0.52 L Blood Gas Specimen Source Blood arterial Arterial Blood Date Drawn 08/04/2017 5:10:34 AM Arterial Blood pH (Temp corrected) 7.475 H Arterial Blood pCO2 (Temp correct) 35.0 Arterial Blood pO2 (Temp corrected) 94.0 Arterial Blood HCO3 25.2 Arterial Blood Base Excess 1.9 Arterial Blood Oxygen Saturation 96.5 Sanjeev Test ACCEPTAB Arterial Blood Gas Puncture Site Left Radial Arterial Blood Carboxyhemoglobin 0.5 Arterial Blood Methemoglobin 0.4 Blood Gas A-a O2 Differential 78.8 H Oxyhemoglobin Percent 95.6 Total Hemoglobin 13.1 Blood Gas Temperature 37.0 Blood Gas Respiration Rate 18.0 Blood Gas Actual Respiration Rate 19 Blood Gas Modality VENT - AC FiO2 30.0 Blood Gas Tidal Volume 500.0 Blood Gas Notified Whom UP Blood Gas Notified Time 08/04/2017 5:23:42 AM Bedside Glucose 169 156 Test 08/04/17 12:26 Bedside Glucose 141 Medications Current Medications Morphine Sulfate (morphine) 2 mg Q4H PRN IV back pain Last administered on 08/02 20:27; Admin Dose 2 MG; Start 07/24/17 at 17:30 Ondansetron HCl (Zofran Inj) 4 mg Q6H PRN IV NAUSEA AND/OR VOMITING; Start at 19:00 Morphine Sulfate 4 mg 4 mg Q4H PRN IV PAIN LEVEL 7-10 Last administered on 08/03 10:05; Admin Dose 4 MG; Start 07/24/17 at 19:00 Fluconazole (Diflucan 200 Mg/ NS (Pmx)) 100 ml @ 100 mls/hr Q24H IVPB Last administered on 08/04/17 11:23; Admin Dose 100 MLS/HR; Start 07/25/17 at 11:00 Diagnostic Test (Pha) (Accu-Chek) 1 ea 02 XX Last administered on 08/02/17 01: 06; Admin Dose 1 EA; Start 07/26/17 at 02:00 Insulin Aspart (Novolog Insulin Pen) NOVOLOG *MILD* ALGORI... Q4 SC Last administered on 08/04/17 12:29; Admin Dose 1 UNIT; Start 07/25/17 at 13:00 Miscellaneous Information 1 ea NOTE XX ; Start 07/25/17 at 10:30 Glucose (Glutose) 15 gm Q15M PRN PO DECREASED GLUCOSE; Start 07/25/17 at 10:30 Glucose (Glutose) 22.5 gm Q15M PRN PO DECREASED GLUCOSE; Start 07/25/17 at 10: 30 Dextrose (D50w Syringe) 25 ml Q15M PRN IV DECREASED GLUCOSE; Start 07/25/17 at 10:30 Dextrose (D50w Syringe) 50 ml Q15M PRN IV DECREASED GLUCOSE; Start 07/25/17 at 10:30 Glucagon (Glucagen) 1 mg Q15M PRN IM DECREASED GLUCOSE; Start 07/25/17 at 10:30 Glucose (Glutose) 15 gm Q15M PRN BUCCAL DECREASED GLUCOSE; Start 07/25/17 at 10 :30 Nystatin 1 applic 1 applic BID TOP Last administered on 08/04/17 09:03; Admin Dose 1 APPLIC; Start 07/25/17 at 13:00 Norepinephrine/ Dextrose (Levophed/D5W) 500 ml @ 0 mls/hr TITRATE IV Last administered on 07/29/17 20:41; Admin Dose 15 MLS/HR; Start 07/25/17 at 17:30 IV Flush 10 ml 10 ml PRN PRN IV IV PROTOCOL; Start 07/25/17 at 17:30 Propofol 100 ml @ 3.327 mls/ hr Q12H IV Last administered on 08/03/17 07:00; Admin Dose 10.647 MLS/HR; Start 07/25/17 at 22:00 Midazolam HCl 50 ml @ 1 mls/hr TITRATE IV Last administered on 08/04/17 05:36 ; Admin Dose 1 MLS/HR; Start 07/26/17 at 10:30 Fentanyl 100 ml @ 2.5 mls/hr TITRATE IV Last administered on 07/29/17 02:08; Admin Dose 6 MLS/HR; Start 07/26/17 at 10:30 Vasopressin 60 unit/Dextrose 60 ml @ 1.2 mls/hr Q12H IV Last administered on 07/29/17 07:07; Admin Dose 0.6 MLS/HR; Start 07/26/17 at 13:00 Epinephrine/ Sodium Chloride (EPINEPHrine/NS) 250 ml @ 0 mls/hr TITRATE IV Last administered on 07/28/17 15:59; Admin Dose 22.5 MLS/HR; Start 07/26/17 at 14:30 Acetaminophen (Tylenol Liquid) 650 mg Q6H PRN NGT PAIN AND OR ELEVATED TEMP Last administered on 08/04/17 05:44; Admin Dose 650 MG; Start 07/27/17 at 20:30 Hydrocortisone 100 mg 100 mg Q8 IV Last administered on 08/04/17 05:36; Admin Dose 100 MG; Start 07/28/17 at 15:00 Meropenem/Sodium Chloride 50 ml @ 100 mls/hr Q12 IVPB Last administered on 09:03; Admin Dose 100 MLS/HR; Start 07/29/17 at 11:30 Dopamine HCl/ Dextrose 250 ml @ 8.318 mls/ hr TITRATE IV Last administered on 08/04/17 12:16; Admin Dose 16.637 MLS/HR; Start 07/29/17 at 19:30 Vancomycin HCl/ Sodium Chloride (Vancocin/NS) 150 ml @ 100 mls/hr Q24H IVPB Last administered on 08/04/17 00:57; Admin Dose 100 MLS/HR; Start 07/31/17 at 00:00 Famotidine (Pepcid Iv) 20 mg Q12 IV Last administered on 08/04/17 09:03; Admin Dose 20 MG; Start 08/01/17 at 09:00 Atropine Sulfate 0.5 mg 0.5 mg PRN PRN IV DECREASED HEART RATE Last administered on 08/03/17 09:36; Admin Dose 0.5 MG; Start 08/01/17 at 10:30 Dextrose 1,000 ml @ 175 mls/hr Q5H43M IV Last administered on 08/04/17 09:21 ; Admin Dose 150 MLS/HR; Start 08/02/17 at 08:30 Potassium Chloride (KCl 20 MEQ/50 ML SW) 50 ml @ 25 mls/hr Q2H IVPB Last administered on 08/04/17 12:16; Admin Dose 25 MLS/HR; Start 08/04/17 at 10:00; Stop 08/04/17 at 15:59 Assessment/Plan Additional Assessment/Plan IMP: 1. Encephalopathy likely toxic metabolic appears to be slowly resolving this morning. 2. Hypoxemic and hypercapnic respiratory failure, continues mechanical ventilation. 3. Status post gram-negative septic shock 4. Sinus Bradycardia--rule out hypothyroidism 5. Renal insufficiency RECS: 1. Wean to CPAP/PS now 2. Continue broad-spectrum antibiotic coverage 3. Gentle diuresis 4. TF/ increase Free H20 Critical care time 40 minutes NEEMA CABEZAS MD Aug 04, 2017 14:49
--- NOTE | 2017-08-04 15:36 | RADRPT ---
PROCEDURE: XR Chest. CLINICAL INDICATION: Intubated, respiratory failure. ARDS TECHNIQUE: Anterior chest x-ray. COMPARISON: Chest radiograph performed the prior day. FINDINGS: There is stable and satisfactory position of the life-support lines. Endotracheal tube terminates 1.6 cm above the tamiko. Scattered, fluffy air space opacities are consistent with the given history of ARDS and are unchange d from previous exam. The lung volumes are low. There is crowding of central pulmonary vasculature. Retrocardiac consolidation is unchanged from previous exam. Hazy opacities in the bilateral lung bases may represent small pleural effusions. The cardiomediastinal contour is stable. There is no free air under the hemidiaphragms. The soft tissues and bony structures are unchanged. IMPRESSION: 1. Scattered, fluffy airspace opacities throughout both lungs, consistent with the given history of ARDS, unchanged from previous exam. 2. Stable and satisfactory position of the life-support lines. 3. Low lung volumes with compressive changes in bilateral lung bases. 4. Possible small pleural effusions. 5. Cardiomegaly. RPTAT: QQ .Ronald Sewell MD, Date Time Electronically viewed and signed by .Ronald Sewell MD, on 08/04/2017 15:36 .M/
[2017-08-05] VITALS (41 sets, daily range): BP systolic 95–174; BP diastolic 43–96; PULSE 42–68; RESP 14–22
[2017-08-05] MEDS: INSULIN ASPART [NOVOLOG] 3 ML PEN SC SCH ×6 (01:00→20:59)
--- NOTE | 2017-08-05 03:49 | PN ---
DATE: 08/03/2017 INFECTIOUS DISEASE PROGRESS NOTE SUBJECTIVE: No events overnight. The patient is back on dopamine drip secondary to bradycardia. S he is sedated, intubated and in no distress. No fevers overnight. Temperature 98.4, pulse 58, resp irations 18, blood pressure 155/59, saturation 96% on vent. WBC 10.2, H and H 9.7 and 29.2, platele ts 134, neutrophils 88.5, BUN 77, creatinine 1.19. MICROBIOLOGY: No new cultures. ANTIMICROBIALS: The patient remains on: 1. Vancomycin. 2. Meropenem. 3. Fluconazole. ALLERGIES: SULFA. INDWELLINGS: The patient had endotracheal tube, NG tube, Cartagena catheter and PICC line placed on . PHYSICAL EXAMINATION: GENERAL: Obese, well-developed elderly woman who is in no distress. HEENT: Head atraumatic, normocephalic. Sclerae anicteric. Buccal mucosa dry. NECK: Obese. CHEST: Rise symmetrical. Breath sounds diminished to bases. HEART: S1, S2. ABDOMEN: Soft. Bowel tones hypoactive. EXTREMITIES: Bilateral trace edema, left lower extremity with erythema below her knee. ASSESSMENT: 1. Status post septic shock. 2. Symptomatic bradycardia, remains on dopamine drip. 3. Escherichia coli urinary tract infection with bacteremia. 4. Left lower extremity cellulitis. 5. [id number] kidney disease. 6. Hepatomegaly with cholelithiasis and biliary duct dilatation, per ultrasound. PLAN: Patient remains unchanged, failed weaning trials yesterday. She is back on dopamine for reji ycardia. She is on appropriate antibiotics. Continue present care. Follow recommendations of cons ederts. Dictated By: ERICKA LEGER EXERCISE PLANNER for [facility] MOORE MD NI/NTS Conf#: [id number] DID#: [id number]
[2017-08-05] MEDS: HYDROCORTISONE 100 MG INJ IV SCH ×3 (06:00→22:00)
[2017-08-05 06:55] LABS: BASOPHILS % 0.1 % (0.0-2.0); HEMATOCRIT 31.6 % (37.0-47.0); HEMOGLOBIN 10.4 g/dl (12.0-16.0); LYMPHOCYTES # 0.7 10^3/ul (0.8-2.9); LYMPHOCYTES % 6.2 % (15.0-51.0); MEAN CORPUSCULAR HGB CONC 32.9 g/dl (32.0-37.0); MEAN CORPUSCULAR VOLUME 103.3 fl (82.0-101.0); MEAN PLATELET VOLUME 11.5 fl (7.4-10.4); MONOCYTE # 0.7 10^3/ul (0.3-0.9); MONOCYTES % 6.2 % (0.0-11.0); NEUTROPHIL # 9.9 10^3/ul (1.6-7.5); NEUTROPHILS % 86.8 % (39.0-77.0); PLATELET COUNT 155 10^3/UL (140-415); RED BLOOD COUNT 3.06 10^6/ul (4.20-5.40); RED CELL DISTRIBUTION WIDTH 15.2 % (11.5-14.5); WHITE BLOOD COUNT 11.4 10^3/ul (4.8-10.8)
[2017-08-05] MEDS: DEXTROSE 5% 1,000 ML IV SCH (07:00)
[2017-08-05 07:10] LABS: ALBUMIN 2.5 g/dl (3.3-4.9); ALBUMIN/GLOBULIN RATIO 0.73; BILIRUBIN,INDIRECT 0.7 mg/dl (0-1.1); BILIRUBIN,TOTAL 0.7 mg/dl (0.2-1.3); CREATININE 0.6 mg/dl (0.44-1.00); TOTAL PROTEIN 5.9 g/dl (6.1-8.1)
[2017-08-05 07:13] LABS: POTASSIUM 2.5 mmol/L (3.5-5.1)
[2017-08-05] MEDS: morphine 2 MG INJ IV PRN (07:48)
[2017-08-05] MEDS ORDERED: POTASSIUM CHLORIDE 200 ML ONE (07:55)
[2017-08-05] MEDS: POTASSIUM CHLORIDE 50 ML IVPB SCH ×4 (08:11→14:15)
[2017-08-05] MEDS: SOD CHLORIDE 0.9% 1,000 ML IV SCH (08:11)
[2017-08-05 08:28] LABS: MAGNESIUM 1.7 mg/dl (1.7-2.5); PHOSPHORUS 3.4 mg/dl (2.5-4.9)
[2017-08-05] MEDS: MEROPENEM 500MG/50 ML (PMX) 50 ML IVPB SCH ×2 (08:56→20:41)
[2017-08-05] MEDS: BALSAM PERU/CASTOR OIL 60 GM TUBE TOP SCH ×2 (08:56→20:47)
[2017-08-05] MEDS: FAMOTIDINE 20 MG INJ IV SCH ×2 (08:56→20:41)
[2017-08-05] MEDS: NYSTATIN 30 GM POWDER BTL TOP SCH ×2 (09:00→20:47)
[2017-08-05] MEDS: PROPOFOL 100 ML IV SCH (09:08)
--- NOTE | 2017-08-05 09:09 | CONS ---
Date/Time of Note Date/Time of Note DATE: 08/05/17 TIME: 09:04 Assessment/Plan Assessment/Plan Additional Assessment/Plan 1. Acute renal failure has resolved. 2. Hypokalemia is being addressed, can not explain as no diarrhea, ng suction, osmotic diuresis (sugars are reasonable), no change in acid base status, and mag nl, will repeat to be sure not a lab error, Urine Mag ordered. 3. Hypernatremia resolved, IV changed to NS- to ko 4. Extubated 5. Edema in part sec to albumin, reasonable to try and diurese once lyte balance corrected. 6. Bradycardia persists requiring dopamine, await cards follow up. 7. Sepsis, abx noted. Consultation Date/Type/Reason Admit Date/Time Jul 24, 2017 at 11:53 Initial Consult Date 07/25/17 Type of Consultation: Pulm/CCM Detailed Summary Respiratory: cough (mild), No shortness of breath Cardiovascular: No chest pain Gastrointestinal: no complaints Genitourinary: other (holman in place) Exam/Review of Systems Vital Signs Vitals Vital Signs Date Time Temp Pulse Resp B/P Pulse Ox O2 Delivery O2 Flow Rate FiO2 08/05/17 08:00 Nasal Cannula 2.0 08/05/17 06:30 52 22 148/69 08/05/17 05:00 100 08/05/17 03:30 97.8 08/04/17 20:20 28 Intake and Output 08/04/17 08/04/17 08/05/17 15:00 23:00 07:00 Intake Total 1144.0 ml 1552 ml 1537.4 ml Output Total 925 ml 1225 ml 1725 ml Balance 219.0 ml 327 ml -187.6 ml Exam Neck: No jvd Respiratory: diminished breath sounds Cardiovascular: regular rate and rhythm Gastrointestinal: soft Extremities: edema (1+ leg and 2-3+ sacral edema) Results Result Diagram: 08/05/17 0628 08/05/17 0610 Results 24 hrs Laboratory Tests Test 08/04/17 09:05 08/04/17 12:26 08/04/17 17:12 08/04/17 21:13 Bedside Glucose 156 141 147 137 Test 08/05/17 06:10 08/05/17 06:28 08/05/17 08:55 Sodium Level 143 Potassium Level 2.5 *L Chloride Level 106 Carbon Dioxide Level 33 H Anion Gap 7 L Blood Urea Nitrogen 34 #H Creatinine 0.60 Glucose Level 161 Calcium Level 8.0 L Phosphorus Level 3.4 Magnesium Level 1.7 Total Bilirubin 0.7 Direct Bilirubin 0.00 Indirect Bilirubin 0.7 Aspartate Amino Transf (AST/SGOT) 44 Alanine Aminotransferase (ALT/SGPT) 46 Alkaline Phosphatase 171 H Total Protein 5.9 L Albumin 2.5 L Globulin 3.40 H Albumin/Globulin Ratio 0.73 White Blood Count 11.4 H Red Blood Count 3.06 L Hemoglobin 10.4 L Hematocrit 31.6 L Mean Corpuscular Volume 103.3 H Mean Corpuscular Hemoglobin 34.0 H Mean Corpuscular Hemoglobin Concent 32.9 Red Cell Distribution Width 15.2 H Platelet Count 155 Mean Platelet Volume 11.5 H Neutrophils % 86.8 H Lymphocytes % 6.2 L Monocytes % 6.2 Eosinophils % 0.0 Basophils % 0.1 Nucleated Red Blood Cells % 0.0 Neutrophils # 9.9 H Lymphocytes # 0.7 L Monocytes # 0.7 Eosinophils # 0.0 Basophils # 0.0 Nucleated Red Blood Cells # 0.0 Bedside Glucose 133 Medications Medications Current Medications Morphine Sulfate (morphine) 2 mg Q4H PRN IV back pain Last administered on 08/05 07:48; Admin Dose 2 MG; Start 07/24/17 at 17:30 Ondansetron HCl (Zofran Inj) 4 mg Q6H PRN IV NAUSEA AND/OR VOMITING; Start at 19:00 Morphine Sulfate 4 mg 4 mg Q4H PRN IV PAIN LEVEL 7-10 Last administered on 08/03 10:05; Admin Dose 4 MG; Start 07/24/17 at 19:00 Fluconazole (Diflucan 200 Mg/ NS (Pmx)) 100 ml @ 100 mls/hr Q24H IVPB Last administered on 08/04/17 11:23; Admin Dose 100 MLS/HR; Start 07/25/17 at 11:00 Diagnostic Test (Pha) (Accu-Chek) 1 ea 02 XX Last administered on 08/02/17 01: 06; Admin Dose 1 EA; Start 07/26/17 at 02:00 Insulin Aspart (Novolog Insulin Pen) NOVOLOG *MILD* ALGORI... Q4 SC Last administered on 08/04/17 17:40; Admin Dose 1 UNIT; Start 07/25/17 at 13:00 Miscellaneous Information 1 ea NOTE XX ; Start 07/25/17 at 10:30 Glucose (Glutose) 15 gm Q15M PRN PO DECREASED GLUCOSE; Start 07/25/17 at 10:30 Glucose (Glutose) 22.5 gm Q15M PRN PO DECREASED GLUCOSE; Start 07/25/17 at 10: 30 Dextrose (D50w Syringe) 25 ml Q15M PRN IV DECREASED GLUCOSE; Start 07/25/17 at 10:30 Dextrose (D50w Syringe) 50 ml Q15M PRN IV DECREASED GLUCOSE; Start 07/25/17 at 10:30 Glucagon (Glucagen) 1 mg Q15M PRN IM DECREASED GLUCOSE; Start 07/25/17 at 10:30 Glucose (Glutose) 15 gm Q15M PRN BUCCAL DECREASED GLUCOSE; Start 07/25/17 at 10 :30 Nystatin 1 applic 1 applic BID TOP Last administered on 08/04/17 21:16; Admin Dose 1 APPLIC; Start 07/25/17 at 13:00 Norepinephrine/ Dextrose (Levophed/D5W) 500 ml @ 0 mls/hr TITRATE IV Last administered on 07/29/17 20:41; Admin Dose 15 MLS/HR; Start 07/25/17 at 17:30 IV Flush 10 ml 10 ml PRN PRN IV IV PROTOCOL; Start 07/25/17 at 17:30 Propofol 100 ml @ 3.327 mls/ hr Q12H IV Last administered on 08/03/17 07:00; Admin Dose 10.647 MLS/HR; Start 07/25/17 at 22:00 Midazolam HCl 50 ml @ 1 mls/hr TITRATE IV Last administered on 08/04/17 05:36 ; Admin Dose 1 MLS/HR; Start 07/26/17 at 10:30 Fentanyl 100 ml @ 2.5 mls/hr TITRATE IV Last administered on 07/29/17 02:08; Admin Dose 6 MLS/HR; Start 07/26/17 at 10:30 Vasopressin 60 unit/Dextrose 60 ml @ 1.2 mls/hr Q12H IV Last administered on 07/29/17 07:07; Admin Dose 0.6 MLS/HR; Start 07/26/17 at 13:00 Epinephrine/ Sodium Chloride (EPINEPHrine/NS) 250 ml @ 0 mls/hr TITRATE IV Last administered on 07/28/17 15:59; Admin Dose 22.5 MLS/HR; Start 07/26/17 at 14:30 Acetaminophen (Tylenol Liquid) 650 mg Q6H PRN NGT PAIN AND OR ELEVATED TEMP Last administered on 08/04/17 05:44; Admin Dose 650 MG; Start 07/27/17 at 20:30 Hydrocortisone 100 mg 100 mg Q8 IV Last administered on 08/05/17 06:00; Admin Dose 100 MG; Start 07/28/17 at 15:00 Meropenem/Sodium Chloride 50 ml @ 100 mls/hr Q12 IVPB Last administered on 08:56; Admin Dose 100 MLS/HR; Start 07/29/17 at 11:30 Dopamine HCl/ Dextrose 250 ml @ 8.318 mls/ hr TITRATE IV Last administered on 08/04/17 12:16; Admin Dose 16.637 MLS/HR; Start 07/29/17 at 19:30 Vancomycin HCl/ Sodium Chloride (Vancocin/NS) 150 ml @ 100 mls/hr Q24H IVPB Last administered on 08/04/17 22:45; Admin Dose 100 MLS/HR; Start 07/31/17 at 00:00 Famotidine (Pepcid Iv) 20 mg Q12 IV Last administered on 08/05/17 08:56; Admin Dose 20 MG; Start 08/01/17 at 09:00 Atropine Sulfate 0.5 mg 0.5 mg PRN PRN IV DECREASED HEART RATE Last administered on 08/03/17 09:36; Admin Dose 0.5 MG; Start 08/01/17 at 10:30 Sodium Chloride 1,000 ml @ 50 mls/hr Q20H IV Last administered on 08/05/17 08 :11; Admin Dose 50 MLS/HR; Start 08/05/17 at 08:00 Potassium Chloride (KCl 20 MEQ/50 ML SW) 50 ml @ 25 mls/hr Q2H IVPB Last administered on 08/05/17 08:11; Admin Dose 25 MLS/HR; Start 08/05/17 at 08:00; Stop 08/05/17 at 15:59 MELVA SHANNON MD Aug 05, 2017 09:09
[2017-08-05] MEDS ORDERED: MAGNESIUM SULFATE 2 GM/50 ML 50 ML IVPB ONE (09:30)
--- NOTE | 2017-08-05 10:11 | PN ---
DATE: 08/04/2017 SUBJECTIVE: No acute events overnight. The patient is awake, comfortable on vent, at [facility]. She is afebrile, still on dopamine drip. VITAL SIGNS: Temperature 98, pulse 46, respirations 18, blood pressure 151/69, saturation 97% on ve nt. LABORATORIES: WBC 11, hemoglobin and hematocrit 10.8 and 32.7, platelets 163, neutrophils 88.2, BUN 53, creatinine 0.79. ANTIMICROBIALS: 1. Vancomycin. 2. Meropenem. 3. Fluconazole. INDWELLINGS: Endotracheal tube, NG tube, Cartagena catheter, PICC line placed on 07/25/2017. PHYSICAL EXAMINATION: GENERAL: Obese, well-developed, elderly woman who is in no distress. HEENT: Head atraumatic, normocephalic. Sclerae anicteric. Buccal mucosa dry. NECK: Supple. CHEST: Rise symmetrical. Breath sounds diminished to bases. HEART: S1, S2. ABDOMEN: Soft. Bowel tones present. EXTREMITIES: Without cyanosis. Bilateral lower extremity edema, improving, left lower extremity er ythema, looks slightly better. ASSESSMENT: 1. Sepsis, multifactorial. 2. Resolving sepsis status post septic shock. 3. Escherichia coli urinary tract infection with bacteremia on admission, repeat blood cultures neg ative. 4. Left lower extremity cellulitis, improving. 5. Symptomatic bradycardia, remains on dopamine drip. 6. Acute kidney injury, improving. 7. Status with biliary ductal dilatation per ultrasound. 8. Anemia and thrombocytopenia. PLAN: The patient remains unchanged, clinically improved. Still on dopamine drip for bradycardia. We will continue her on current antimicrobials. Continue management as per primary team and consul tants. Of note, the patient is on Solu-Cortef, expect increase in white blood cell count. Dictated By: ERICKA LEGER NAILHEAD PUNCHER for [facility]/ABBY Conf#: [id number] DID#: [id number]
[2017-08-05] MEDS: FLUCONAZOLE 200 MG/NS (PMX) 100 ML IVPB SCH (12:18)
--- NOTE | 2017-08-05 12:19 | CONS ---
Date/Time of Note Date/Time of Note DATE: 08/05/17 TIME: 12:16 Assessment/Plan Assessment/Plan Additional Assessment/Plan Currently on dopamine at 5 mics per kilogram per minute. Chest x-ray was reviewed from today which is showing cardiomegaly. Assessment and recommendations; 1. Patient admitted with respiratory failure extubated yesterday with marked overall clinical improvement. 2. Likely underlying diastolic dysfunction. 3. Mild pulmonary edema. 4. Underlying obesity. 5. Possibly underlying sleep apnea and obesity/hypoventilation syndrome. 6. Mild anemia and thrombocytopenia. 7. Hypokalemia. Continue current supportive care. Consultation Date/Type/Reason Admit Date/Time Jul 24, 2017 at 11:53 Initial Consult Date 07/25/17 Type of Consultation: Pulm/CCM 24 HR Interval Summary Free Text/Dictation Patient condition is markedly improved. She was successfully extubated yesterday. Remains awake and alert. Has remained mildly hemodynamically unstable requiring low-dose dopamine. General exam; elderly female, morbidly obese, currently in distress. Awake and alert. Exam/Review of Systems Vital Signs Vitals Vital Signs Date Time Temp Pulse Resp B/P Pulse Ox O2 Delivery O2 Flow Rate FiO2 08/05/17 10:30 52 150/70 96 08/05/17 10:00 20 Nasal Cannula 2.0 08/05/17 08:00 99.1 08/04/17 20:20 28 Intake and Output 08/04/17 08/04/17 08/05/17 15:00 23:00 07:00 Intake Total 1144.0 ml 1552 ml 1537.4 ml Output Total 925 ml 1225 ml 1725 ml Balance 219.0 ml 327 ml -187.6 ml Exam HEENT exam; supple neck, JVD difficult to see because of short neck. Patient has fair dentition. Pupils are equal and reactive to light bilaterally. Pharynx is clear. Chest exam; diminished but clear breath sounds. S1-S2 audible, no murmurs. Regular rhythm. Abdomen exam; soft, protuberant. Nontender. Bowel sounds audible. Extremity exam; 2+ pitting edema lower extremities bilaterally. Patient does have patchy ecchymosis in all 4 extremities. CHIEF INFORMATION OFFICER exam; patient is awake and alert. Moves all 4 extremities on command. Results Result Diagram: 08/05/17 0628 08/05/17 1014 Results 24 hrs Laboratory Tests Test 08/04/17 12:26 08/04/17 17:12 08/04/17 21:13 08/05/17 06:10 Bedside Glucose 141 147 137 Sodium Level 143 Potassium Level 2.5 *L Chloride Level 106 Carbon Dioxide Level 33 H Anion Gap 7 L Blood Urea Nitrogen 34 #H Creatinine 0.60 Glucose Level 161 Calcium Level 8.0 L Phosphorus Level 3.4 Magnesium Level 1.7 Total Bilirubin 0.7 Direct Bilirubin 0.00 Indirect Bilirubin 0.7 Aspartate Amino Transf (AST/SGOT) 44 Alanine Aminotransferase (ALT/SGPT) 46 Alkaline Phosphatase 171 H Total Protein 5.9 L Albumin 2.5 L Globulin 3.40 H Albumin/Globulin Ratio 0.73 Test 08/05/17 06:28 08/05/17 08:00 08/05/17 08:55 08/05/17 10:14 White Blood Count 11.4 H Red Blood Count 3.06 L Hemoglobin 10.4 L Hematocrit 31.6 L Mean Corpuscular Volume 103.3 H Mean Corpuscular Hemoglobin 34.0 H Mean Corpuscular Hemoglobin Concent 32.9 Red Cell Distribution Width 15.2 H Platelet Count 155 Mean Platelet Volume 11.5 H Neutrophils % 86.8 H Lymphocytes % 6.2 L Monocytes % 6.2 Eosinophils % 0.0 Basophils % 0.1 Nucleated Red Blood Cells % 0.0 Neutrophils # 9.9 H Lymphocytes # 0.7 L Monocytes # 0.7 Eosinophils # 0.0 Basophils # 0.0 Nucleated Red Blood Cells # 0.0 Urine Random Potassium 32.9 Bedside Glucose 133 Potassium Level 2.8 *L Medications Medications Current Medications Morphine Sulfate (morphine) 2 mg Q4H PRN IV back pain Last administered on 08/05 07:48; Admin Dose 2 MG; Start 07/24/17 at 17:30 Ondansetron HCl (Zofran Inj) 4 mg Q6H PRN IV NAUSEA AND/OR VOMITING; Start at 19:00 Morphine Sulfate 4 mg 4 mg Q4H PRN IV PAIN LEVEL 7-10 Last administered on 08/03 10:05; Admin Dose 4 MG; Start 07/24/17 at 19:00 Fluconazole (Diflucan 200 Mg/ NS (Pmx)) 100 ml @ 100 mls/hr Q24H IVPB Last administered on 08/04/17 11:23; Admin Dose 100 MLS/HR; Start 07/25/17 at 11:00 Diagnostic Test (Pha) (Accu-Chek) 1 ea 02 XX Last administered on 08/02/17 01: 06; Admin Dose 1 EA; Start 07/26/17 at 02:00 Insulin Aspart (Novolog Insulin Pen) NOVOLOG *MILD* ALGORI... Q4 SC Last administered on 08/04/17 17:40; Admin Dose 1 UNIT; Start 07/25/17 at 13:00 Miscellaneous Information 1 ea NOTE XX ; Start 07/25/17 at 10:30 Glucose (Glutose) 15 gm Q15M PRN PO DECREASED GLUCOSE; Start 07/25/17 at 10:30 Glucose (Glutose) 22.5 gm Q15M PRN PO DECREASED GLUCOSE; Start 07/25/17 at 10: 30 Dextrose (D50w Syringe) 25 ml Q15M PRN IV DECREASED GLUCOSE; Start 07/25/17 at 10:30 Dextrose (D50w Syringe) 50 ml Q15M PRN IV DECREASED GLUCOSE; Start 07/25/17 at 10:30 Glucagon (Glucagen) 1 mg Q15M PRN IM DECREASED GLUCOSE; Start 07/25/17 at 10:30 Glucose (Glutose) 15 gm Q15M PRN BUCCAL DECREASED GLUCOSE; Start 07/25/17 at 10 :30 Nystatin 1 applic 1 applic BID TOP Last administered on 08/04/17 21:16; Admin Dose 1 APPLIC; Start 07/25/17 at 13:00 Norepinephrine/ Dextrose (Levophed/D5W) 500 ml @ 0 mls/hr TITRATE IV Last administered on 07/29/17 20:41; Admin Dose 15 MLS/HR; Start 07/25/17 at 17:30 IV Flush 10 ml 10 ml PRN PRN IV IV PROTOCOL; Start 07/25/17 at 17:30 Propofol 100 ml @ 3.327 mls/ hr Q12H IV Last administered on 08/03/17 07:00; Admin Dose 10.647 MLS/HR; Start 07/25/17 at 22:00 Midazolam HCl 50 ml @ 1 mls/hr TITRATE IV Last administered on 08/04/17 05:36 ; Admin Dose 1 MLS/HR; Start 07/26/17 at 10:30 Fentanyl 100 ml @ 2.5 mls/hr TITRATE IV Last administered on 07/29/17 02:08; Admin Dose 6 MLS/HR; Start 07/26/17 at 10:30 Vasopressin 60 unit/Dextrose 60 ml @ 1.2 mls/hr Q12H IV Last administered on 07/29/17 07:07; Admin Dose 0.6 MLS/HR; Start 07/26/17 at 13:00 Epinephrine/ Sodium Chloride (EPINEPHrine/NS) 250 ml @ 0 mls/hr TITRATE IV Last administered on 07/28/17 15:59; Admin Dose 22.5 MLS/HR; Start 07/26/17 at 14:30 Acetaminophen (Tylenol Liquid) 650 mg Q6H PRN NGT PAIN AND OR ELEVATED TEMP Last administered on 08/04/17 05:44; Admin Dose 650 MG; Start 07/27/17 at 20:30 Hydrocortisone 100 mg 100 mg Q8 IV Last administered on 08/05/17 06:00; Admin Dose 100 MG; Start 07/28/17 at 15:00 Meropenem/Sodium Chloride 50 ml @ 100 mls/hr Q12 IVPB Last administered on 08:56; Admin Dose 100 MLS/HR; Start 07/29/17 at 11:30 Dopamine HCl/ Dextrose 250 ml @ 8.318 mls/ hr TITRATE IV Last administered on 08/04/17 12:16; Admin Dose 16.637 MLS/HR; Start 07/29/17 at 19:30 Vancomycin HCl/ Sodium Chloride (Vancocin/NS) 150 ml @ 100 mls/hr Q24H IVPB Last administered on 08/04/17 22:45; Admin Dose 100 MLS/HR; Start 07/31/17 at 00:00 Famotidine (Pepcid Iv) 20 mg Q12 IV Last administered on 08/05/17 08:56; Admin Dose 20 MG; Start 08/01/17 at 09:00 Atropine Sulfate 0.5 mg 0.5 mg PRN PRN IV DECREASED HEART RATE Last administered on 08/03/17 09:36; Admin Dose 0.5 MG; Start 08/01/17 at 10:30 Sodium Chloride 1,000 ml @ 50 mls/hr Q20H IV Last administered on 08/05/17 08 :11; Admin Dose 50 MLS/HR; Start 08/05/17 at 08:00 Potassium Chloride (KCl 20 MEQ/50 ML SW) 50 ml @ 25 mls/hr Q2H IVPB Last administered on 08/05/17 10:16; Admin Dose 25 MLS/HR; Start 08/05/17 at 08:00; Stop 08/05/17 at 15:59 IVETTE SINGER Aug 05, 2017 12:19
[2017-08-05] MEDS: VASOPRESSIN 60 UNIT in DEXTROSE 5% 57 ML IV SCH ×2 (12:21→19:49)
--- NOTE | 2017-08-05 12:34 | PN ---
Date/Time of Note Date/Time of Note DATE: 08/05/17 TIME: 12:31 Assessment/Plan VTE Prophylaxis VTE Prophylaxis Intervention: contraindicated (low plt count) Lines/Catheters IV Catheter Type (from Nrsg): PICC Line Urinary Cath still in place: Yes Subjective 24 Hr Interval Summary Free Text/Dictation extubated alert when wakened, moves all four. some back discomfort. can start speech eval for swallowing, nutrition. can start p.t. in attempt to mobilize as able still mild sammie, remains on dopamine k low, correction in progress vs as per record lungs sound clear, cxr noted still edematous Constitutional: requiring IVF, requiring O2 Musculoskeletal: back pain Exam/Review of Systems Vital Signs Vitals Vital Signs Date Time Temp Pulse Resp B/P Pulse Ox O2 Delivery O2 Flow Rate FiO2 08/05/17 10:30 52 150/70 96 08/05/17 10:00 20 Nasal Cannula 2.0 08/05/17 08:00 99.1 08/04/17 20:20 28 Intake and Output 08/04/17 08/04/17 08/05/17 15:00 23:00 07:00 Intake Total 1144.0 ml 1552 ml 1537.4 ml Output Total 925 ml 1225 ml 1725 ml Balance 219.0 ml 327 ml -187.6 ml Results Result Diagram: 08/05/17 0628 08/05/17 1014 Results 24 hrs Laboratory Tests Test 08/04/17 17:12 08/04/17 21:13 08/05/17 06:10 08/05/17 06:28 Bedside Glucose 147 137 Sodium Level 143 Potassium Level 2.5 *L Chloride Level 106 Carbon Dioxide Level 33 H Anion Gap 7 L Blood Urea Nitrogen 34 #H Creatinine 0.60 Glucose Level 161 Calcium Level 8.0 L Phosphorus Level 3.4 Magnesium Level 1.7 Total Bilirubin 0.7 Direct Bilirubin 0.00 Indirect Bilirubin 0.7 Aspartate Amino Transf (AST/SGOT) 44 Alanine Aminotransferase (ALT/SGPT) 46 Alkaline Phosphatase 171 H Total Protein 5.9 L Albumin 2.5 L Globulin 3.40 H Albumin/Globulin Ratio 0.73 White Blood Count 11.4 H Red Blood Count 3.06 L Hemoglobin 10.4 L Hematocrit 31.6 L Mean Corpuscular Volume 103.3 H Mean Corpuscular Hemoglobin 34.0 H Mean Corpuscular Hemoglobin Concent 32.9 Red Cell Distribution Width 15.2 H Platelet Count 155 Mean Platelet Volume 11.5 H Neutrophils % 86.8 H Lymphocytes % 6.2 L Monocytes % 6.2 Eosinophils % 0.0 Basophils % 0.1 Nucleated Red Blood Cells % 0.0 Neutrophils # 9.9 H Lymphocytes # 0.7 L Monocytes # 0.7 Eosinophils # 0.0 Basophils # 0.0 Nucleated Red Blood Cells # 0.0 Test 08/05/17 08:00 08/05/17 08:55 08/05/17 10:14 Urine Random Potassium 32.9 Bedside Glucose 133 Potassium Level 2.8 *L Medications Medications Current Medications Morphine Sulfate (morphine) 2 mg Q4H PRN IV back pain Last administered on 08/05 07:48; Admin Dose 2 MG; Start 07/24/17 at 17:30 Ondansetron HCl (Zofran Inj) 4 mg Q6H PRN IV NAUSEA AND/OR VOMITING; Start at 19:00 Morphine Sulfate (morphine) 4 mg Q4H PRN IV PAIN LEVEL 7-10 Last administered on 08/03/17 10:05; Admin Dose 4 MG; Start 07/24/17 at 19:00 Diagnostic Test (Pha) (Accu-Chek) 1 ea 02 XX Last administered on 08/02/17 01: 06; Admin Dose 1 EA; Start 07/26/17 at 02:00 Insulin Aspart (Novolog Insulin Pen) NOVOLOG *MILD* ALGORI... Q4 SC Last administered on 08/04/17 17:40; Admin Dose 1 UNIT; Start 07/25/17 at 13:00 Miscellaneous Information 1 ea NOTE XX ; Start 07/25/17 at 10:30 Glucose (Glutose) 15 gm Q15M PRN PO DECREASED GLUCOSE; Start 07/25/17 at 10:30 Glucose (Glutose) 22.5 gm Q15M PRN PO DECREASED GLUCOSE; Start 07/25/17 at 10: 30 Dextrose (D50w Syringe) 25 ml Q15M PRN IV DECREASED GLUCOSE; Start 07/25/17 at 10:30 Dextrose (D50w Syringe) 50 ml Q15M PRN IV DECREASED GLUCOSE; Start 07/25/17 at 10:30 Glucagon (Glucagen) 1 mg Q15M PRN IM DECREASED GLUCOSE; Start 07/25/17 at 10:30 Glucose (Glutose) 15 gm Q15M PRN BUCCAL DECREASED GLUCOSE; Start 07/25/17 at 10 :30 Nystatin 1 applic 1 applic BID TOP Last administered on 08/04/17 21:16; Admin Dose 1 APPLIC; Start 07/25/17 at 13:00 Norepinephrine/ Dextrose (Levophed/D5W) 500 ml @ 0 mls/hr TITRATE IV Last administered on 07/29/17 20:41; Admin Dose 15 MLS/HR; Start 07/25/17 at 17:30 IV Flush 10 ml 10 ml PRN PRN IV IV PROTOCOL; Start 07/25/17 at 17:30 Propofol 100 ml @ 3.327 mls/ hr Q12H IV Last administered on 08/03/17 07:00; Admin Dose 10.647 MLS/HR; Start 07/25/17 at 22:00 Midazolam HCl 50 ml @ 1 mls/hr TITRATE IV Last administered on 08/04/17 05:36 ; Admin Dose 1 MLS/HR; Start 07/26/17 at 10:30 Fentanyl 100 ml @ 2.5 mls/hr TITRATE IV Last administered on 07/29/17 02:08; Admin Dose 6 MLS/HR; Start 07/26/17 at 10:30 Vasopressin 60 unit/Dextrose 60 ml @ 1.2 mls/hr Q12H IV Last administered on 07/29/17 07:07; Admin Dose 0.6 MLS/HR; Start 07/26/17 at 13:00 Epinephrine/ Sodium Chloride (EPINEPHrine/NS) 250 ml @ 0 mls/hr TITRATE IV Last administered on 07/28/17 15:59; Admin Dose 22.5 MLS/HR; Start 07/26/17 at 14:30 Acetaminophen (Tylenol Liquid) 650 mg Q6H PRN NGT PAIN AND OR ELEVATED TEMP Last administered on 08/04/17 05:44; Admin Dose 650 MG; Start 07/27/17 at 20:30 Hydrocortisone 100 mg 100 mg Q8 IV Last administered on 08/05/17 06:00; Admin Dose 100 MG; Start 07/28/17 at 15:00 Meropenem/Sodium Chloride 50 ml @ 100 mls/hr Q12 IVPB Last administered on 08:56; Admin Dose 100 MLS/HR; Start 07/29/17 at 11:30 Dopamine HCl/ Dextrose 250 ml @ 8.318 mls/ hr TITRATE IV Last administered on 08/04/17 12:16; Admin Dose 16.637 MLS/HR; Start 07/29/17 at 19:30 Vancomycin HCl/ Sodium Chloride (Vancocin/NS) 150 ml @ 100 mls/hr Q24H IVPB Last administered on 08/04/17 22:45; Admin Dose 100 MLS/HR; Start 07/31/17 at 00:00 Famotidine (Pepcid Iv) 20 mg Q12 IV Last administered on 08/05/17 08:56; Admin Dose 20 MG; Start 08/01/17 at 09:00 Atropine Sulfate 0.5 mg 0.5 mg PRN PRN IV DECREASED HEART RATE Last administered on 08/03/17 09:36; Admin Dose 0.5 MG; Start 08/01/17 at 10:30 Sodium Chloride 1,000 ml @ 50 mls/hr Q20H IV Last administered on 08/05/17 08 :11; Admin Dose 50 MLS/HR; Start 08/05/17 at 08:00 Potassium Chloride (KCl 20 MEQ/50 ML SW) 50 ml @ 25 mls/hr Q2H IVPB Last administered on 08/05/17 12:15; Admin Dose 25 MLS/HR; Start 08/05/17 at 08:00; Stop 08/05/17 at 15:59 PIPER SANTANA MD Aug 05, 2017 12:34
--- NOTE | 2017-08-05 13:30 | PN ---
DATE: 08/05/2017 SUBJECTIVE: No acute changes. The patient was extubated. She is awake, looks comfortable. VITAL SIGNS: Temperature 99.1, pulse 45, respirations 20, blood pressure 159/73, saturation 96 on 2 liters. WBC 11.4, H and H 10.4 and 31.6, platelets 155, neutrophils 86.8, BUN 34, creatinine 0.60. MICROBIOLOGY: No new cultures. DIAGNOSTICS: No changes since yesterday. INDWELLINGS: The patient has a PICC line and [place] catheter. ANTIMICROBIALS: Patient remains on ____ , fluconazole. ALLERGIES: SULFA. PHYSICAL EXAMINATION: GENERAL: This is a morbidly obese, elderly woman who is awake, in no distress. HEENT: Head atraumatic, normocephalic. Sclerae anicteric. Buccal mucosa dry. NECK: Obese. CHEST: Rise symmetrical. Breath sounds diminished to bases. HEART: S1, S2. ABDOMEN: Soft, bowel tones present. EXTREMITIES: With bilateral edema, left lower extremity with erythema. ASSESSMENT: 1. Resolving sepsis. 2. Symptomatic bradycardic, remains on dopamine drip. 3. Status post Escherichia coli urinary tract infection with bacteremia. 4. Left lower extremity cellulitis. 5. Acute kidney injury with kidney function markedly improved. 6. Acute respiratory failure, status post extubated. 7. Resolving encephalopathy. 8. Hepatomegaly with cholelithiasis and biliary duct dilatation, per ultrasound. PLAN: ____ Patient remains stable post-extubation. Continue present care. Discontinue Diflucan. Continue vancomycin and meropenem. Anti-aspiration measures. Follow recommendations of consultants . Dictated By: ERICKA LEGER COMMUNITY RELATIONS ADVISOR for [facility] Conf#: [id number] DID#: [id number]
--- NOTE | 2017-08-05 21:29 | PN ---
Date/Time of Note Date/Time of Note DATE: 08/05/17 TIME: 18:17 Assessment/Plan VTE Prophylaxis VTE Prophylaxis Intervention: SCD's Lines/Catheters IV Catheter Type (from Nrs): PICC Line Central line still needed: No Urinary Cath still in place: Yes Reason Cath still needed: urinary retention Assessment/Plan Chief Complaint/Hosp Course The [facility] as the patient is currently intubated. She initially presented with severe back pain as well as evidecne of a UTI and Acute Renal failure. The patient subseqently had resp failure and intubated, currently seen by the pulmonary and renal services. She overnight had severe sinus bradycardia in the high 30s with no advanced heart block and as such, cardiology evluation was requested. Problems: Assessment/Plan 1. Encephalopathy improving 2. Hypoxemic and hypercapnic respiratory failure 3. Status post gram-negative septic shock 4. Thrombocytopenia. 5. Renal insufficiency likely ATN injury on top of chronic renal insufficiency. 6. Sinus Bradycardia 7. s/p Fluid overload 8.s s/p hypokalemia Plan 2. Continue broad-spectrum antibiotic coverage, 5. wean off dopamine and check HR - if remasin in the 40s, will avoid PPM and outptient event recorder 6. s/p bumex drip - renal involved 7. s/p atropine for bradycardia > no recurrence yesterday > no pacer necessary for now Subjective 24 Hr Interval Summary Free Text/Dictation The patient slowly improving Exam/Review of Systems Vital Signs Vitals Vital Signs Date Time Temp Pulse Resp B/P Pulse Ox O2 Delivery O2 Flow Rate FiO2 08/05/17 17:39 2.0 08/05/17 16:30 55 22 98/45 95 08/05/17 16:00 Nasal Cannula 08/05/17 12:00 98.1 08/04/17 20:20 28 Intake and Output 08/04/17 08/04/17 08/05/17 15:00 23:00 07:00 Intake Total 1144.0 ml 1552 ml 1537.4 ml Output Total 925 ml 1225 ml 1725 ml Balance 219.0 ml 327 ml -187.6 ml Results Result Diagram: 08/05/17 0628 08/05/17 1556 Results 24 hrs Laboratory Tests Test 08/04/17 21:13 08/05/17 06:10 08/05/17 06:28 08/05/17 08:00 Bedside Glucose 137 Sodium Level 143 Potassium Level 2.5 *L Chloride Level 106 Carbon Dioxide Level 33 H Anion Gap 7 L Blood Urea Nitrogen 34 #H Creatinine 0.60 Glucose Level 161 Calcium Level 8.0 L Phosphorus Level 3.4 Magnesium Level 1.7 Total Bilirubin 0.7 Direct Bilirubin 0.00 Indirect Bilirubin 0.7 Aspartate Amino Transf (AST/SGOT) 44 Alanine Aminotransferase (ALT/SGPT) 46 Alkaline Phosphatase 171 H Total Protein 5.9 L Albumin 2.5 L Globulin 3.40 H Albumin/Globulin Ratio 0.73 White Blood Count 11.4 H Red Blood Count 3.06 L Hemoglobin 10.4 L Hematocrit 31.6 L Mean Corpuscular Volume 103.3 H Mean Corpuscular Hemoglobin 34.0 H Mean Corpuscular Hemoglobin Concent 32.9 Red Cell Distribution Width 15.2 H Platelet Count 155 Mean Platelet Volume 11.5 H Neutrophils % 86.8 H Lymphocytes % 6.2 L Monocytes % 6.2 Eosinophils % 0.0 Basophils % 0.1 Nucleated Red Blood Cells % 0.0 Neutrophils # 9.9 H Lymphocytes # 0.7 L Monocytes # 0.7 Eosinophils # 0.0 Basophils # 0.0 Nucleated Red Blood Cells # 0.0 Urine Random Potassium 32.9 Test 08/05/17 08:55 08/05/17 10:14 08/05/17 12:18 08/05/17 15:56 Bedside Glucose 133 113 Potassium Level 2.8 *L 4.9 # Test 08/05/17 16:39 Bedside Glucose 111 Medications Medications Current Medications Morphine Sulfate (morphine) 2 mg Q4H PRN IV back pain Last administered on 08/05 07:48; Admin Dose 2 MG; Start 07/24/17 at 17:30 Ondansetron HCl (Zofran Inj) 4 mg Q6H PRN IV NAUSEA AND/OR VOMITING; Start at 19:00 Morphine Sulfate (morphine) 4 mg Q4H PRN IV PAIN LEVEL 7-10 Last administered on 08/03/17 10:05; Admin Dose 4 MG; Start 07/24/17 at 19:00 Diagnostic Test (Pha) (Accu-Chek) 1 ea 02 XX Last administered on 10/6/17at 01: 06; Admin Dose 1 EA; Start 07/26/17 at 02:00 Insulin Aspart (Novolog Insulin Pen) NOVOLOG *MILD* ALGORI... Q4 SC Last administered on 08/04/17 17:40; Admin Dose 1 UNIT; Start 07/25/17 at 13:00 Miscellaneous Information 1 ea NOTE XX ; Start 07/25/17 at 10:30 Glucose (Glutose) 15 gm Q15M PRN PO DECREASED GLUCOSE; Start 07/25/17 at 10:30 Glucose (Glutose) 22.5 gm Q15M PRN PO DECREASED GLUCOSE; Start 07/25/17 at 10: 30 Dextrose (D50w Syringe) 25 ml Q15M PRN IV DECREASED GLUCOSE; Start 07/25/17 at 10:30 Dextrose (D50w Syringe) 50 ml Q15M PRN IV DECREASED GLUCOSE; Start 07/25/17 at 10:30 Glucagon (Glucagen) 1 mg Q15M PRN IM DECREASED GLUCOSE; Start 07/25/17 at 10:30 Glucose (Glutose) 15 gm Q15M PRN BUCCAL DECREASED GLUCOSE; Start 07/25/17 at 10 :30 Nystatin 1 applic 1 applic BID TOP Last administered on 08/04/17 21:16; Admin Dose 1 APPLIC; Start 07/25/17 at 13:00 Norepinephrine/ Dextrose (Levophed/D5W) 500 ml @ 0 mls/hr TITRATE IV Last administered on 07/29/17 20:41; Admin Dose 15 MLS/HR; Start 07/25/17 at 17:30 IV Flush 10 ml 10 ml PRN PRN IV IV PROTOCOL; Start 07/25/17 at 17:30 Propofol 100 ml @ 3.327 mls/ hr Q12H IV Last administered on 08/03/17 07:00; Admin Dose 10.647 MLS/HR; Start 07/25/17 at 22:00 Midazolam HCl 50 ml @ 1 mls/hr TITRATE IV Last administered on 08/04/17 05:36 ; Admin Dose 1 MLS/HR; Start 07/26/17 at 10:30 Fentanyl 100 ml @ 2.5 mls/hr TITRATE IV Last administered on 07/29/17 02:08; Admin Dose 6 MLS/HR; Start 07/26/17 at 10:30 Vasopressin 60 unit/Dextrose 60 ml @ 1.2 mls/hr Q12H IV Last administered on 07/29/17 07:07; Admin Dose 0.6 MLS/HR; Start 07/26/17 at 13:00 Epinephrine/ Sodium Chloride (EPINEPHrine/NS) 250 ml @ 0 mls/hr TITRATE IV Last administered on 07/28/17 15:59; Admin Dose 22.5 MLS/HR; Start 07/26/17 at 14:30 Acetaminophen (Tylenol Liquid) 650 mg Q6H PRN NGT PAIN AND OR ELEVATED TEMP Last administered on 08/04/17 05:44; Admin Dose 650 MG; Start 07/27/17 at 20:30 Hydrocortisone 100 mg 100 mg Q8 IV Last administered on 08/05/17 14:24; Admin Dose 100 MG; Start 07/28/17 at 15:00 Meropenem/Sodium Chloride 50 ml @ 100 mls/hr Q12 IVPB Last administered on 08:56; Admin Dose 100 MLS/HR; Start 07/29/17 at 11:30 Dopamine HCl/ Dextrose 250 ml @ 8.318 mls/ hr TITRATE IV Last administered on 08/04/17 12:16; Admin Dose 16.637 MLS/HR; Start 07/29/17 at 19:30 Vancomycin HCl/ Sodium Chloride (Vancocin/NS) 150 ml @ 100 mls/hr Q24H IVPB Last administered on 08/04/17 22:45; Admin Dose 100 MLS/HR; Start 07/31/17 at 00:00 Famotidine (Pepcid Iv) 20 mg Q12 IV Last administered on 08/05/17 08:56; Admin Dose 20 MG; Start 08/01/17 at 09:00 Atropine Sulfate 0.5 mg 0.5 mg PRN PRN IV DECREASED HEART RATE Last administered on 08/03/17 09:36; Admin Dose 0.5 MG; Start 08/01/17 at 10:30 Sodium Chloride (NS) 1,000 ml @ 50 mls/hr Q20H IV Last administered on 08:11; Admin Dose 50 MLS/HR; Start 08/05/17 at 08:00 Miscellaneous Information (*Rx Drug Level Order Reminder*) VANCOMYCIN TROUGH AT 2300 ONCE ONCE XX ; Start 08/05/17 at 23:00; Stop 08/05/17 at 23:01 JENNIE LEY MD Aug 05, 2017 18:28
[2017-08-06] VITALS (22 sets, daily range): BP systolic 95–138; BP diastolic 43–71; PULSE 36–68; RESP 9–21
[2017-08-06] MEDS: VANCOMYCIN 750 MG in SOD CHLORIDE 0.9% 150 ML IVPB SCH (00:16)
[2017-08-06] MEDS: ACCU-CHEK XX SCH (00:25)
[2017-08-06] MEDS: INSULIN ASPART [NOVOLOG] 3 ML PEN SC SCH ×6 (01:00→21:00)
[2017-08-06] MEDS: SOD CHLORIDE 0.9% 1,000 ML IV SCH (04:30)
[2017-08-06 05:16] LABS: BASOPHILS % 0.1 % (0.0-2.0); HEMATOCRIT 27.2 % (37.0-47.0); HEMOGLOBIN 8.8 g/dl (12.0-16.0); LYMPHOCYTES # 0.7 10^3/ul (0.8-2.9); LYMPHOCYTES % 8.3 % (15.0-51.0); MEAN CORPUSCULAR HEMOGLOBIN 33.7 pg (29.0-33.0); MEAN CORPUSCULAR HGB CONC 32.4 g/dl (32.0-37.0); MEAN CORPUSCULAR VOLUME 104.2 fl (82.0-101.0); MEAN PLATELET VOLUME 11.8 fl (7.4-10.4); MONOCYTE # 0.6 10^3/ul (0.3-0.9); MONOCYTES % 7.2 % (0.0-11.0); NEUTROPHIL # 6.8 10^3/ul (1.6-7.5); NEUTROPHILS % 83.9 % (39.0-77.0); PLATELET COUNT 114 10^3/UL (140-415); RED BLOOD COUNT 2.61 10^6/ul (4.20-5.40); WHITE BLOOD COUNT 8.2 10^3/ul (4.8-10.8)
[2017-08-06] MEDS: HYDROCORTISONE 100 MG INJ IV SCH ×3 (05:19→22:11)
[2017-08-06] MEDS: morphine 2 MG INJ IV PRN ×2 (05:28→10:50)
[2017-08-06 05:58] LABS: CALCIUM 7.4 mg/dl (8.4-10.2); CREATININE 0.55 mg/dl (0.44-1.00); PHOSPHORUS 3.2 mg/dl (2.5-4.9)
[2017-08-06] MEDS: BALSAM PERU/CASTOR OIL 60 GM TUBE TOP SCH ×2 (08:32→21:06)
[2017-08-06] MEDS: NYSTATIN 30 GM POWDER BTL TOP SCH ×2 (08:32→21:06)
[2017-08-06] MEDS: FAMOTIDINE 20 MG INJ IV SCH ×2 (08:32→21:06)
[2017-08-06] MEDS: MEROPENEM 500MG/50 ML (PMX) 50 ML IVPB SCH (08:33)
--- NOTE | 2017-08-06 08:43 | CONS ---
Date/Time of Note Date/Time of Note DATE: 08/06/17 TIME: 08:41 Assessment/Plan Assessment/Plan Additional Assessment/Plan 1. Recurrent hypokalemia again without gi loss, acid base change and nl mag, and having not received any diuretics unclear why, repeat urine lytes obtained and will replete 2. Sepsis treated 3. Vol overload, can diurese gently once K is nl. 4, Bradycardia persists Consultation Date/Type/Reason Admit Date/Time Jul 24, 2017 at 11:53 Initial Consult Date 07/25/17 Type of Consultation: Pulm/CCM Detailed Summary Respiratory: cough (that is not productive), No shortness of breath Cardiovascular: No chest pain Gastrointestinal: no complaints Genitourinary: other (holman in place) Neurologic: No headache Exam/Review of Systems Vital Signs Vitals Vital Signs Date Time Temp Pulse Resp B/P Pulse Ox O2 Delivery O2 Flow Rate FiO2 08/06/17 08:00 Nasal Cannula 2.0 08/06/17 08:00 98.1 38 18 127/60 97 08/04/17 20:20 28 Intake and Output 08/05/17 08/05/17 08/06/17 15:00 23:00 07:00 Intake Total 820.57 ml 250 ml 650 ml Output Total 800 ml 495 ml 315 ml Balance 20.57 ml -245 ml 335 ml Exam Neck: No jvd Respiratory: clear to auscultation Cardiovascular: regular rate and rhythm Gastrointestinal: soft Extremities: edema (unchanged) Results Result Diagram: 08/06/17 0400 08/06/17 0400 Results 24 hrs Laboratory Tests Test 08/05/17 08:55 08/05/17 10:14 08/05/17 12:18 08/05/17 15:56 Bedside Glucose 133 113 Potassium Level 2.8 *L 4.9 # Test 08/05/17 16:39 08/05/17 20:56 08/05/17 22:58 08/06/17 04:00 Bedside Glucose 111 106 Vancomycin Level Trough 8.1 L White Blood Count 8.2 # Red Blood Count 2.61 L Hemoglobin 8.8 L Hematocrit 27.2 L Mean Corpuscular Volume 104.2 H Mean Corpuscular Hemoglobin 33.7 H Mean Corpuscular Hemoglobin Concent 32.4 Red Cell Distribution Width 15.0 H Platelet Count 114 #L Mean Platelet Volume 11.8 H Neutrophils % 83.9 H Lymphocytes % 8.3 L Monocytes % 7.2 Eosinophils % 0.0 Basophils % 0.1 Nucleated Red Blood Cells % 0.0 Neutrophils # 6.8 Lymphocytes # 0.7 L Monocytes # 0.6 Eosinophils # 0.0 Basophils # 0.0 Nucleated Red Blood Cells # 0.0 Sodium Level 148 H Potassium Level 3.0 L Chloride Level 114 H Carbon Dioxide Level 31 Anion Gap 6 L Blood Urea Nitrogen 28 H Creatinine 0.55 Glucose Level 94 # Calcium Level 7.4 L Phosphorus Level 3.2 Magnesium Level 2.0 Test 08/06/17 04:40 08/06/17 08:32 Bedside Glucose 96 96 Medications Medications Current Medications Morphine Sulfate (morphine) 2 mg Q4H PRN IV back pain Last administered on 05:28; Admin Dose 2 MG; Start 07/24/17 at 17:30 Ondansetron HCl (Zofran Inj) 4 mg Q6H PRN IV NAUSEA AND/OR VOMITING; Start at 19:00 Morphine Sulfate (morphine) 4 mg Q4H PRN IV PAIN LEVEL 7-10 Last administered on 08/03/17 10:05; Admin Dose 4 MG; Start 07/24/17 at 19:00 Diagnostic Test (Pha) (Accu-Chek) 1 ea 02 XX Last administered on 08/02/17 01: 06; Admin Dose 1 EA; Start 07/26/17 at 02:00 Insulin Aspart (Novolog Insulin Pen) NOVOLOG *MILD* ALGORI... Q4 SC Last administered on 08/04/17 17:40; Admin Dose 1 UNIT; Start 07/25/17 at 13:00 Miscellaneous Information 1 ea NOTE XX ; Start 07/25/17 at 10:30 Glucose (Glutose) 15 gm Q15M PRN PO DECREASED GLUCOSE; Start 07/25/17 at 10:30 Glucose (Glutose) 22.5 gm Q15M PRN PO DECREASED GLUCOSE; Start 07/25/17 at 10: 30 Dextrose (D50w Syringe) 25 ml Q15M PRN IV DECREASED GLUCOSE; Start 07/25/17 at 10:30 Dextrose (D50w Syringe) 50 ml Q15M PRN IV DECREASED GLUCOSE; Start 07/25/17 at 10:30 Glucagon (Glucagen) 1 mg Q15M PRN IM DECREASED GLUCOSE; Start 07/25/17 at 10:30 Glucose (Glutose) 15 gm Q15M PRN BUCCAL DECREASED GLUCOSE; Start 07/25/17 at 10 :30 Nystatin 1 applic 1 applic BID TOP Last administered on 08/06/17 08:32; Admin Dose 1 APPLIC; Start 07/25/17 at 13:00 Norepinephrine/ Dextrose (Levophed/D5W) 500 ml @ 0 mls/hr TITRATE IV Last administered on 07/29/17 20:41; Admin Dose 15 MLS/HR; Start 07/25/17 at 17:30 IV Flush 10 ml 10 ml PRN PRN IV IV PROTOCOL; Start 07/25/17 at 17:30 Midazolam HCl 50 ml @ 1 mls/hr TITRATE IV Last administered on 08/04/17 05:36 ; Admin Dose 1 MLS/HR; Start 07/26/17 at 10:30 Vasopressin 60 unit/Dextrose 60 ml @ 1.2 mls/hr Q12H IV Last administered on 07/29/17 07:07; Admin Dose 0.6 MLS/HR; Start 07/26/17 at 13:00 Epinephrine/ Sodium Chloride (EPINEPHrine/NS) 250 ml @ 0 mls/hr TITRATE IV Last administered on 07/28/17 15:59; Admin Dose 22.5 MLS/HR; Start 07/26/17 at 14:30 Acetaminophen (Tylenol Liquid) 650 mg Q6H PRN NGT PAIN AND OR ELEVATED TEMP Last administered on 08/04/17 05:44; Admin Dose 650 MG; Start 07/27/17 at 20:30 Hydrocortisone 100 mg 100 mg Q8 IV Last administered on 08/06/17 05:19; Admin Dose 100 MG; Start 07/28/17 at 15:00 Dopamine HCl/ Dextrose 250 ml @ 8.318 mls/ hr TITRATE IV Last administered on 08/04/17 12:16; Admin Dose 16.637 MLS/HR; Start 07/29/17 at 19:30 Famotidine (Pepcid Iv) 20 mg Q12 IV Last administered on 08/06/17 08:32; Admin Dose 20 MG; Start 08/01/17 at 09:00 Atropine Sulfate 0.5 mg 0.5 mg PRN PRN IV DECREASED HEART RATE Last administered on 08/03/17 09:36; Admin Dose 0.5 MG; Start 08/01/17 at 10:30 Sodium Chloride 1,000 ml @ 50 mls/hr Q20H IV Last administered on 08/06/17 04:30; Admin Dose 50 MLS/HR; Start 08/05/17 at 08:00 Vancomycin HCl 1.25 gm/Sodium Chloride 250 ml @ 83.333 mls/ hr Q24H IVPB ; Start 08/06/17 at 18:00 Meropenem/Sodium Chloride 50 ml @ 100 mls/hr Q12 IVPB ; Start 08/06/17 at 21: 00 Potassium Chloride (KCl 20 MEQ/50 ML SW) 50 ml @ 25 mls/hr Q2H IVPB ; Start 08/13 at 09:00; Stop 08/06/17 at 14:59; Status UNV MELVA SHANNON MD Aug 06, 2017 08:43
[2017-08-06] MEDS ORDERED: POTASSIUM CHLORIDE 50 ML IVPB SCH ×2 (09:00→23:00)
[2017-08-06] MEDS ORDERED: POTASSIUM CHLORIDE 0 ML ONE (09:13)
[2017-08-06] MEDS ORDERED: SOD CHLORIDE 0.9% IV SCH (10:30)
[2017-08-06] MEDS ORDERED: POTASSIUM CHLORIDE IV SCH (10:30)
[2017-08-06 11:11] LABS: POTASSIUM,URINE RANDOM 51.2 mmol/L (25-125)
--- NOTE | 2017-08-06 11:14 | CONS ---
Date/Time of Note Date/Time of Note DATE: 08/06/17 TIME: 11:12 Assessment/Plan Assessment/Plan Additional Assessment/Plan Assessment and recommendations; 1. Patient admitted with sepsis due to E. coli sepsis, status post extubation with marked overall clinical improvement. 2. Mild pulmonary edema with interval improvement. 3. Anemia and thrombocytopenia. 4. Possibly underlying sleep apnea. Continue current treatment. Transfer the patient out to medical floor. Consultation Date/Type/Reason Admit Date/Time Jul 24, 2017 at 11:53 Initial Consult Date 07/25/17 Type of Consultation: Pulm/CCM 24 HR Interval Summary Free Text/Dictation Patient's condition is stable. Remains completely awake and alert. Denies any shortness of breath, chest pain. General exam; elderly female, currently in no distress. Awake and alert. Exam/Review of Systems Vital Signs Vitals Vital Signs Date Time Temp Pulse Resp B/P Pulse Ox O2 Delivery O2 Flow Rate FiO2 08/06/17 11:00 47 17 122/57 97 Nasal Cannula 2.0 08/06/17 08:00 98.1 08/04/17 20:20 28 Intake and Output 08/05/17 08/05/17 08/06/17 15:00 23:00 07:00 Intake Total 820.57 ml 250 ml 650 ml Output Total 800 ml 495 ml 315 ml Balance 20.57 ml -245 ml 335 ml Exam HEENT exam; supple neck, no JVD. No lymphadenopathy. Midline trachea. No thyromegaly. Pharynx is clear. Patient has fair dentition. Pupils are midsize and reactive to light. Chest exam; diminished but clear breath sounds. S1-S2 audible, no murmurs. Regular rhythm. Abdomen exam; soft, protuberant. Nontender. No organomegaly. Bowel sounds audible. Extremity exam; decreased lower extremity edema. Pulses 1+ bilaterally. CAR OILER exam; no focal deficit. Results Result Diagram: 08/06/17 0400 08/06/17 0400 Results 24 hrs Laboratory Tests Test 08/05/17 12:18 08/05/17 15:56 08/05/17 16:39 08/05/17 20:56 Bedside Glucose 113 111 106 Potassium Level 4.9 # Test 08/05/17 22:58 08/06/17 04:00 08/06/17 04:40 08/06/17 08:32 Vancomycin Level Trough 8.1 L White Blood Count 8.2 # Red Blood Count 2.61 L Hemoglobin 8.8 L Hematocrit 27.2 L Mean Corpuscular Volume 104.2 H Mean Corpuscular Hemoglobin 33.7 H Mean Corpuscular Hemoglobin Concent 32.4 Red Cell Distribution Width 15.0 H Platelet Count 114 #L Mean Platelet Volume 11.8 H Neutrophils % 83.9 H Lymphocytes % 8.3 L Monocytes % 7.2 Eosinophils % 0.0 Basophils % 0.1 Nucleated Red Blood Cells % 0.0 Neutrophils # 6.8 Lymphocytes # 0.7 L Monocytes # 0.6 Eosinophils # 0.0 Basophils # 0.0 Nucleated Red Blood Cells # 0.0 Sodium Level 148 H Potassium Level 3.0 L Chloride Level 114 H Carbon Dioxide Level 31 Anion Gap 6 L Blood Urea Nitrogen 28 H Creatinine 0.55 Glucose Level 94 # Calcium Level 7.4 L Phosphorus Level 3.2 Magnesium Level 2.0 Bedside Glucose 96 96 Medications Medications Current Medications Morphine Sulfate (morphine) 2 mg Q4H PRN IV back pain Last administered on 10:50; Admin Dose 2 MG; Start 07/24/17 at 17:30 Ondansetron HCl (Zofran Inj) 4 mg Q6H PRN IV NAUSEA AND/OR VOMITING; Start at 19:00 Morphine Sulfate (morphine) 4 mg Q4H PRN IV PAIN LEVEL 7-10 Last administered on 08/03/17 10:05; Admin Dose 4 MG; Start 07/24/17 at 19:00 Diagnostic Test (Pha) (Accu-Chek) 1 ea 02 XX Last administered on 08/02/17 01: 06; Admin Dose 1 EA; Start 07/26/17 at 02:00 Insulin Aspart (Novolog Insulin Pen) NOVOLOG *MILD* ALGORI... Q4 SC Last administered on 08/04/17 17:40; Admin Dose 1 UNIT; Start 07/25/17 at 13:00 Miscellaneous Information 1 ea NOTE XX ; Start 07/25/17 at 10:30 Glucose (Glutose) 15 gm Q15M PRN PO DECREASED GLUCOSE; Start 07/25/17 at 10:30 Glucose (Glutose) 22.5 gm Q15M PRN PO DECREASED GLUCOSE; Start 07/25/17 at 10: 30 Dextrose (D50w Syringe) 25 ml Q15M PRN IV DECREASED GLUCOSE; Start 07/25/17 at 10:30 Dextrose (D50w Syringe) 50 ml Q15M PRN IV DECREASED GLUCOSE; Start 07/25/17 at 10:30 Glucagon (Glucagen) 1 mg Q15M PRN IM DECREASED GLUCOSE; Start 07/25/17 at 10:30 Glucose (Glutose) 15 gm Q15M PRN BUCCAL DECREASED GLUCOSE; Start 07/25/17 at 10 :30 Nystatin 1 applic 1 applic BID TOP Last administered on 08/06/17 08:32; Admin Dose 1 APPLIC; Start 07/25/17 at 13:00 Norepinephrine/ Dextrose (Levophed/D5W) 500 ml @ 0 mls/hr TITRATE IV Last administered on 07/29/17 20:41; Admin Dose 15 MLS/HR; Start 07/25/17 at 17:30 IV Flush 10 ml 10 ml PRN PRN IV IV PROTOCOL; Start 07/25/17 at 17:30 Midazolam HCl 50 ml @ 1 mls/hr TITRATE IV Last administered on 08/04/17 05:36 ; Admin Dose 1 MLS/HR; Start 07/26/17 at 10:30 Vasopressin 60 unit/Dextrose 60 ml @ 1.2 mls/hr Q12H IV Last administered on 07/29/17 07:07; Admin Dose 0.6 MLS/HR; Start 07/26/17 at 13:00 Epinephrine/ Sodium Chloride (EPINEPHrine/NS) 250 ml @ 0 mls/hr TITRATE IV Last administered on 07/28/17 15:59; Admin Dose 22.5 MLS/HR; Start 07/26/17 at 14:30 Acetaminophen (Tylenol Liquid) 650 mg Q6H PRN NGT PAIN AND OR ELEVATED TEMP Last administered on 08/04/17 05:44; Admin Dose 650 MG; Start 07/27/17 at 20:30 Hydrocortisone 100 mg 100 mg Q8 IV Last administered on 08/06/17 05:19; Admin Dose 100 MG; Start 07/28/17 at 15:00 Dopamine HCl/ Dextrose 250 ml @ 8.318 mls/ hr TITRATE IV Last administered on 08/04/17 12:16; Admin Dose 16.637 MLS/HR; Start 07/29/17 at 19:30 Famotidine (Pepcid Iv) 20 mg Q12 IV Last administered on 08/06/17 08:32; Admin Dose 20 MG; Start 08/01/17 at 09:00 Atropine Sulfate 0.5 mg 0.5 mg PRN PRN IV DECREASED HEART RATE Last administered on 08/03/17 09:36; Admin Dose 0.5 MG; Start 08/01/17 at 10:30 Sodium Chloride 1,000 ml @ 50 mls/hr Q20H IV Last administered on 08/06/17 04:30; Admin Dose 50 MLS/HR; Start 08/05/17 at 08:00 Vancomycin HCl 1.25 gm/Sodium Chloride 250 ml @ 83.333 mls/ hr Q24H IVPB ; Start 08/06/17 at 18:00 Meropenem/Sodium Chloride 50 ml @ 100 mls/hr Q12 IVPB ; Start 08/06/17 at 21: 00 Potassium Chloride/Sodium Chloride (KCl/NS) 280 ml @ 70 mls/hr 1030 IV Last administered on 08/06/17 11:04; Admin Dose 70 MLS/HR; Start 08/06/17 at 10:30 ; Stop 08/06/17 at 14:29 IVETTE SINGER Aug 06, 2017 11:14
[2017-08-06] MEDS: VASOPRESSIN 60 UNIT in DEXTROSE 5% 57 ML IV SCH (12:29)
--- NOTE | 2017-08-06 15:11 | PN ---
DATE: 08/06/2017 SUBJECTIVE: Patient is alert, complaining of back pain. She is in no distress, afebrile. VITAL SIGNS: Temperature 98.1, pulse 48, respiration 18, blood pressure 127/60, saturation 97% on 2 liters. WBC 8.2, H and H 8.8 and 27.2, platelets 114, neutrophils 83.9, BUN 28, creatinine 0.55. ANTIMICROBIALS: 1. The patient is on IV vancomycin. 2. Meropenem. INDWELLINGS: PICC line, [place]. PHYSICAL EXAMINATION: GENERAL: This is an obese, well-developed, elderly woman who is awake, in no distress. HEENT: Head atraumatic, normocephalic. Sclerae anicteric. Buccal mucosa dry. NECK: Supple. CHEST: Rise symmetrical. Breath sounds clear, diminished to bases. HEART: S1, S2. ABDOMEN: Soft. Bowel tones present. EXTREMITIES: Without cyanosis. Bilateral lower extremities, resolving edema in the left lower extr emity. Erythema also resolving. ASSESSMENT: 1. Status post septic shock. 2. Status post Escherichia coli urinary tract infection with bacteremia. Repeat blood cultures neg ative. 3. Status post respiratory failure. 4. Bradycardia. 5. Left lower extremity cellulitis. 6. Hepatomegaly with cholelithiasis and biliary duct dilatation per ultrasound on admission. 7. Status post acute kidney injury, resolved. PLAN: The patient remains stable post-extubation. She is being seen by multiple consultants. She is completing antibiotics for bacteremia. Dictated By: ERICKA [employer] Conf#: [id number] DID#: [id number]
[2017-08-06] MEDS ORDERED: VANCOMYCIN 1 GM in NS 250 ML IVPB SCH (18:00)
[2017-08-06] MEDS ORDERED: VANCOMYCIN 1.25 GM in SOD CHLORIDE 0.9% 250 ML IVPB SCH (18:00)
--- NOTE | 2017-08-06 18:03 | PN ---
Date/Time of Note Date/Time of Note DATE: 08/06/17 TIME: 18:00 Assessment/Plan VTE Prophylaxis VTE Prophylaxis Intervention: anti-embolic stocking Lines/Catheters [facility] PICC Line Central line still needed: Yes Urinary Cath still in place: Yes Reason Cath still needed: urinary retention Assessment/Plan Problems: (1) Cholelithiasis Status: Chronic Comment: Patient is to get a nuclear medicine HIDA scan and evaluation of this. Please note I would have a low level threshold to go ahead and get MRCP Qualifiers: Cholelithiasis location: gallbladder Cholecystitis presence: without cholecystitis Biliary obstruction: without biliary obstruction Qualified Code : K80.20 - Calculus of gallbladder without cholecystitis without obstruction (2) Septic shock due to Escherichia coli Status: Acute Comment: Resolved. Repeat urine culture in the morning (3) Acute renal failure (ARF) Status: Resolved Comment: Fully resolved. Qualifiers: Acute renal failure type: with acute renal cortical necrosis Qualified Code : N17.1 - Acute renal failure with acute cortical necrosis (4) Prerenal acute renal failure Status: Resolved Comment: Resolved. (5) UTI (urinary tract infection) Status: Acute Comment: Recheck urine culture. Qualifiers: Urinary tract infection type: acute cystitis Hematuria presence: without hematuria Qualified Code: N30.00 - Acute cystitis without hematuria (6) Septicemia due to Gram negative organism Status: Acute Comment: Apparently resolved. (7) Debility Status: Acute Comment: Physical therapy and trying it patient moving. In addition in the lower the steroid dose from full stress test half which is still only above what she needs. Subjective 24 Hr Interval Summary Free Text/Dictation Patient sleeping in bed arousable. Constitutional: no complaints Respiratory: no complaints Cardiovascular: no complaints Exam/Review of Systems Vital Signs Vitals Vital Signs Date Time Temp Pulse Resp B/P Pulse Ox O2 Delivery O2 Flow Rate FiO2 08/06/17 17:00 41 21 119/55 98 Nasal Cannula 2.0 08/06/17 16:00 98.1 08/04/17 20:20 28 Intake and Output 08/05/17 08/05/17 08/06/17 15:00 23:00 07:00 Intake Total 820.57 ml 250 ml 650 ml Output Total 800 ml 495 ml 315 ml Balance 20.57 ml -245 ml 335 ml Exam Constitutional: alert, oriented Respiratory: clear to auscultation, normal air movement Cardiovascular: nl pulses, regular rate and rhythm Results Result Diagram: 08/06/17 0400 08/06/17 1605 Results 24 hrs Laboratory Tests Test 08/05/17 20:56 08/05/17 22:58 08/06/17 04:00 08/06/17 04:40 Bedside Glucose 106 96 Vancomycin Level Trough 8.1 L White Blood Count 8.2 # Red Blood Count 2.61 L Hemoglobin 8.8 L Hematocrit 27.2 L Mean Corpuscular Volume 104.2 H Mean Corpuscular Hemoglobin 33.7 H Mean Corpuscular Hemoglobin Concent 32.4 Red Cell Distribution Width 15.0 H Platelet Count 114 #L Mean Platelet Volume 11.8 H Neutrophils % 83.9 H Lymphocytes % 8.3 L Monocytes % 7.2 Eosinophils % 0.0 Basophils % 0.1 Nucleated Red Blood Cells % 0.0 Neutrophils # 6.8 Lymphocytes # 0.7 L Monocytes # 0.6 Eosinophils # 0.0 Basophils # 0.0 Nucleated Red Blood Cells # 0.0 Sodium Level 148 H Potassium Level 3.0 L Chloride Level 114 H Carbon Dioxide Level 31 Anion Gap 6 L Blood Urea Nitrogen 28 H Creatinine 0.55 Glucose Level 94 # Calcium Level 7.4 L Phosphorus Level 3.2 Magnesium Level 2.0 Test 08/06/17 08:32 08/06/17 09:00 08/06/17 12:35 08/06/17 16:05 Bedside Glucose 96 82 Urine Random Sodium 22 L Urine Random Potassium 51.2 Potassium Level 3.7 Test 08/06/17 16:07 Bedside Glucose 99 Medications Medications Current Medications Morphine Sulfate (morphine) 2 mg Q4H PRN IV back pain Last administered on 10:50; Admin Dose 2 MG; Start 07/24/17 at 17:30 Ondansetron HCl (Zofran Inj) 4 mg Q6H PRN IV NAUSEA AND/OR VOMITING; Start at 19:00 Morphine Sulfate (morphine) 4 mg Q4H PRN IV PAIN LEVEL 7-10 Last administered on 08/03/17 10:05; Admin Dose 4 MG; Start 07/24/17 at 19:00 Diagnostic Test (Pha) (Accu-Chek) 1 ea 02 XX Last administered on 08/02/17 01: 06; Admin Dose 1 EA; Start 07/26/17 at 02:00 Insulin Aspart (Novolog Insulin Pen) NOVOLOG *MILD* ALGORI... Q4 SC Last administered on 08/04/17 17:40; Admin Dose 1 UNIT; Start 07/25/17 at 13:00 Miscellaneous Information 1 ea NOTE XX ; Start 07/25/17 at 10:30 Glucose (Glutose) 15 gm Q15M PRN PO DECREASED GLUCOSE; Start 07/25/17 at 10:30 Glucose (Glutose) 22.5 gm Q15M PRN PO DECREASED GLUCOSE; Start 07/25/17 at 10: 30 Dextrose (D50w Syringe) 25 ml Q15M PRN IV DECREASED GLUCOSE; Start 07/25/17 at 10:30 Dextrose (D50w Syringe) 50 ml Q15M PRN IV DECREASED GLUCOSE; Start 07/25/17 at 10:30 Glucagon (Glucagen) 1 mg Q15M PRN IM DECREASED GLUCOSE; Start 07/25/17 at 10:30 Glucose (Glutose) 15 gm Q15M PRN BUCCAL DECREASED GLUCOSE; Start 07/25/17 at 10 :30 Nystatin 1 applic 1 applic BID TOP Last administered on 08/06/17 08:32; Admin Dose 1 APPLIC; Start 07/25/17 at 13:00 Norepinephrine/ Dextrose (Levophed/D5W) 500 ml @ 0 mls/hr TITRATE IV Last administered on 07/29/17 20:41; Admin Dose 15 MLS/HR; Start 07/25/17 at 17:30 IV Flush 10 ml 10 ml PRN PRN IV IV PROTOCOL; Start 07/25/17 at 17:30 Midazolam HCl 50 ml @ 1 mls/hr TITRATE IV Last administered on 08/04/17 05:36 ; Admin Dose 1 MLS/HR; Start 07/26/17 at 10:30 Vasopressin 60 unit/Dextrose 60 ml @ 1.2 mls/hr Q12H IV Last administered on 07/29/17 07:07; Admin Dose 0.6 MLS/HR; Start 07/26/17 at 13:00 Epinephrine/ Sodium Chloride (EPINEPHrine/NS) 250 ml @ 0 mls/hr TITRATE IV Last administered on 07/28/17 15:59; Admin Dose 22.5 MLS/HR; Start 07/26/17 at 14:30 Acetaminophen (Tylenol Liquid) 650 mg Q6H PRN NGT PAIN AND OR ELEVATED TEMP Last administered on 08/04/17 05:44; Admin Dose 650 MG; Start 07/27/17 at 20:30 Hydrocortisone 100 mg 100 mg Q8 IV Last administered on 08/06/17 13:29; Admin Dose 100 MG; Start 07/28/17 at 15:00 Dopamine HCl/ Dextrose 250 ml @ 8.318 mls/ hr TITRATE IV Last administered on 08/04/17 12:16; Admin Dose 16.637 MLS/HR; Start 07/29/17 at 19:30 Famotidine (Pepcid Iv) 20 mg Q12 IV Last administered on 08/06/17 08:32; Admin Dose 20 MG; Start 08/01/17 at 09:00 Atropine Sulfate 0.5 mg 0.5 mg PRN PRN IV DECREASED HEART RATE Last administered on 08/03/17 09:36; Admin Dose 0.5 MG; Start 08/01/17 at 10:30 Sodium Chloride 1,000 ml @ 50 mls/hr Q20H IV Last administered on 08/06/17 04:30; Admin Dose 50 MLS/HR; Start 08/05/17 at 08:00 Vancomycin HCl 1.25 gm/Sodium Chloride 250 ml @ 83.333 mls/ hr Q24H IVPB Last administered on 08/06/17 17:05; Admin Dose 83.333 MLS/HR; Start 08/06/17 at 18:00 Meropenem/Sodium Chloride (Merrem 1 Gm/50 ml (Pmx)) 50 ml @ 100 mls/hr Q12 IVPB ; Start 08/06/17 at 21:00 TIANA JUNIOR MD Aug 06, 2017 18:03
--- NOTE | 2017-08-06 18:19 | PN ---
Date/Time of Note Date/Time of Note DATE: 08/06/17 TIME: 18:17 Assessment/Plan VTE Prophylaxis VTE Prophylaxis Intervention: SCD's Lines/Catheters IV Catheter Type (from Nrs): PICC Line Central line still needed: No Urinary Cath still in place: Yes Reason Cath still needed: urinary retention Assessment/Plan Chief Complaint/Hosp Course The patient's history is obtaied from the [facility] as the patient is currently intubated. She initially presented with severe back pain as well as evidecne of a UTI and Acute Renal failure. The patient subseqently had resp failure and intubated, currently seen by the pulmonary and renal services. She overnight had severe sinus bradycardia in the high 30s with no advanced heart block and as such, cardiology evluation was requested. Problems: Assessment/Plan 1. Encephalopathy improving 2. Hypoxemic and hypercapnic respiratory failure 3. Status post gram-negative septic shock 4. Thrombocytopenia. 5. Renal insufficiency likely ATN injury on top of chronic renal insufficiency. 6. Sinus Bradycardia 7. s/p Fluid overload 8.s s/p hypokalemia Plan 2. Continue broad-spectrum antibiotic coverage, 5. off dopamine if remasin in the 40s, will avoid PPM and outptient event recorder 6. s/p bumex drip - renal involved 7. s/p atropine for bradycardia > no recurrence yesterday > no pacer necessary for now Subjective 24 Hr Interval Summary Free Text/Dictation the aptient improving Exam/Review of Systems Vital Signs Vitals Vital Signs Date Time Temp Pulse Resp B/P Pulse Ox O2 Delivery O2 Flow Rate FiO2 08/06/17 17:00 41 21 119/55 98 Nasal Cannula 2.0 08/06/17 16:00 98.1 08/04/17 20:20 28 Intake and Output 08/05/17 08/05/17 08/06/17 15:00 23:00 07:00 Intake Total 820.57 ml 250 ml 650 ml Output Total 800 ml 495 ml 315 ml Balance 20.57 ml -245 ml 335 ml Results Result Diagram: 08/06/17 0400 08/06/17 1605 Results 24 hrs Laboratory Tests Test 08/05/17 20:56 08/05/17 22:58 08/06/17 04:00 08/06/17 04:40 Bedside Glucose 106 96 Vancomycin Level Trough 8.1 L White Blood Count 8.2 # Red Blood Count 2.61 L Hemoglobin 8.8 L Hematocrit 27.2 L Mean Corpuscular Volume 104.2 H Mean Corpuscular Hemoglobin 33.7 H Mean Corpuscular Hemoglobin Concent 32.4 Red Cell Distribution Width 15.0 H Platelet Count 114 #L Mean Platelet Volume 11.8 H Neutrophils % 83.9 H Lymphocytes % 8.3 L Monocytes % 7.2 Eosinophils % 0.0 Basophils % 0.1 Nucleated Red Blood Cells % 0.0 Neutrophils # 6.8 Lymphocytes # 0.7 L Monocytes # 0.6 Eosinophils # 0.0 Basophils # 0.0 Nucleated Red Blood Cells # 0.0 Sodium Level 148 H Potassium Level 3.0 L Chloride Level 114 H Carbon Dioxide Level 31 Anion Gap 6 L Blood Urea Nitrogen 28 H Creatinine 0.55 Glucose Level 94 # Calcium Level 7.4 L Phosphorus Level 3.2 Magnesium Level 2.0 Test 08/06/17 08:32 08/06/17 09:00 08/06/17 12:35 08/06/17 16:05 Bedside Glucose 96 82 Urine Random Sodium 22 L Urine Random Potassium 51.2 Potassium Level 3.7 Test 08/06/17 16:07 Bedside Glucose 99 Medications Medications Current Medications Morphine Sulfate (morphine) 2 mg Q4H PRN IV back pain Last administered on 10:50; Admin Dose 2 MG; Start 07/24/17 at 17:30 Ondansetron HCl (Zofran Inj) 4 mg Q6H PRN IV NAUSEA AND/OR VOMITING; Start at 19:00 Morphine Sulfate (morphine) 4 mg Q4H PRN IV PAIN LEVEL 7-10 Last administered on 08/03/17 10:05; Admin Dose 4 MG; Start 07/24/17 at 19:00 Diagnostic Test (Pha) (Accu-Chek) 1 ea 02 XX Last administered on 08/02/17 01: 06; Admin Dose 1 EA; Start 07/26/17 at 02:00 Insulin Aspart (Novolog Insulin Pen) NOVOLOG *MILD* ALGORI... Q4 SC Last administered on 08/04/17 17:40; Admin Dose 1 UNIT; Start 07/25/17 at 13:00 Miscellaneous Information 1 ea NOTE XX ; Start 07/25/17 at 10:30 Glucose (Glutose) 15 gm Q15M PRN PO DECREASED GLUCOSE; Start 07/25/17 at 10:30 Glucose (Glutose) 22.5 gm Q15M PRN PO DECREASED GLUCOSE; Start 07/25/17 at 10: 30 Dextrose (D50w Syringe) 25 ml Q15M PRN IV DECREASED GLUCOSE; Start 07/25/17 at 10:30 Dextrose (D50w Syringe) 50 ml Q15M PRN IV DECREASED GLUCOSE; Start 07/25/17 at 10:30 Glucagon (Glucagen) 1 mg Q15M PRN IM DECREASED GLUCOSE; Start 07/25/17 at 10:30 Glucose (Glutose) 15 gm Q15M PRN BUCCAL DECREASED GLUCOSE; Start 07/25/17 at 10 :30 Nystatin (Nystatin Powder) 1 applic BID TOP Last administered on 08/06/17 08: 32; Admin Dose 1 APPLIC; Start 07/25/17 at 13:00 IV Flush (NS 10 ml) 10 ml PRN PRN IV IV PROTOCOL; Start 07/25/17 at 17:30 Acetaminophen (Tylenol Liquid) 650 mg Q6H PRN NGT PAIN AND OR ELEVATED TEMP Last administered on 08/04/17 05:44; Admin Dose 650 MG; Start 07/27/17 at 20:30 Famotidine (Pepcid Iv) 20 mg Q12 IV Last administered on 08/06/17 08:32; Admin Dose 20 MG; Start 08/01/17 at 09:00 Atropine Sulfate 0.5 mg 0.5 mg PRN PRN IV DECREASED HEART RATE Last administered on 08/03/17 09:36; Admin Dose 0.5 MG; Start 08/01/17 at 10:30 Sodium Chloride 1,000 ml @ 50 mls/hr Q20H IV Last administered on 08/06/17 04:30; Admin Dose 50 MLS/HR; Start 08/05/17 at 08:00 Vancomycin HCl 1.25 gm/Sodium Chloride 250 ml @ 83.333 mls/ hr Q24H IVPB Last administered on 08/06/17 17:05; Admin Dose 83.333 MLS/HR; Start 08/06/17 at 18:00 Meropenem/Sodium Chloride (Merrem 1 Gm/50 ml (Pmx)) 50 ml @ 100 mls/hr Q12 IVPB ; Start 08/06/17 at 21:00 Hydrocortisone (Solu-Cortef) 50 mg Q8 IV ; Start 08/06/17 at 22:00 JENNIE LEY MD Aug 06, 2017 18:19
[2017-08-06] MEDS: MEROPENEM 1 GM/50ML(PMX) 50 ML IVPB SCH (21:14)
[2017-08-07] VITALS (18 sets, daily range): BP systolic 99–152; BP diastolic 35–92; PULSE 31–65; RESP 13–23
[2017-08-07] MEDS: INSULIN ASPART [NOVOLOG] 3 ML PEN SC SCH ×6 (01:00→21:00)
[2017-08-07] MEDS: ACCU-CHEK XX SCH (01:26)
[2017-08-07] MEDS: morphine 2 MG INJ IV PRN ×3 (01:28→10:49)
[2017-08-07] MEDS ORDERED: KCL 20 MEQ in NS 100 ML IV ONE (01:30)
[2017-08-07] MEDS: SOD CHLORIDE 0.9% 1,000 ML IV SCH ×2 (04:09)
[2017-08-07] MEDS: HYDROCORTISONE 100 MG INJ IV SCH (05:43)
[2017-08-07 05:58] LABS: EOSINOPHILS % 0.1 % (0.0-7.0); HEMOGLOBIN 9.3 g/dl (12.0-16.0); LYMPHOCYTES # 0.7 10^3/ul (0.8-2.9); LYMPHOCYTES % 8.2 % (15.0-51.0); MEAN CORPUSCULAR HEMOGLOBIN 33.9 pg (29.0-33.0); MEAN CORPUSCULAR HGB CONC 32.1 g/dl (32.0-37.0); MEAN CORPUSCULAR VOLUME 105.8 fl (82.0-101.0); MEAN PLATELET VOLUME 12.4 fl (7.4-10.4); MONOCYTE # 0.6 10^3/ul (0.3-0.9); MONOCYTES % 7.8 % (0.0-11.0); NEUTROPHIL # 6.7 10^3/ul (1.6-7.5); NEUTROPHILS % 83.5 % (39.0-77.0); PLATELET COUNT 115 10^3/UL (140-415); RED BLOOD COUNT 2.74 10^6/ul (4.20-5.40); RED CELL DISTRIBUTION WIDTH 15.3 % (11.5-14.5)
[2017-08-07 06:36] LABS: CALCIUM 8.3 mg/dl (8.4-10.2); CREATININE 0.56 mg/dl (0.44-1.00); MAGNESIUM 2.1 mg/dl (1.7-2.5); PHOSPHORUS 3.2 mg/dl (2.5-4.9); POTASSIUM 3.8 mmol/L (3.5-5.1)
[2017-08-07 06:45] LABS: ADD UMIC YES; UR ASCORBIC ACID NEGATIVE (NEGATIVE); UR BILIRUBIN (Dip) NEGATIVE (NEGATIVE); UR BLOOD (Dip) 2+ mg/dL (NEGATIVE); UR CLARITY SLIGHTLY CLOUDY (CLEAR); UR COLOR YELLOW (YELLOW); UR GLUCOSE (Dip) 1+ mg/dL (NEGATIVE); UR KETONES (Dip) NEGATIVE (NEGATIVE); UR LEUKOCYTE ESTERASE (Dip) 2+ Leu/ul (NEGATIVE); UR MUCUS FEW /HPF (NONE SEEN); UR NITRITE (Dip) NEGATIVE (NEGATIVE); UR RBC 3 /HPF (0-5); UR SPECIFIC GRAVITY (Dip) 1.015 (1.003-1.030); UR TOTAL PROTEIN (Dip) 1+ mg/dl (NEGATIVE); UR UROBILINOGEN (Dip) NEGATIVE (NEGATIVE)
[2017-08-07] MEDS ORDERED: BUMETANIDE 1 MG INJ IV ONE (08:30)
[2017-08-07] MEDS: DEXTROSE 5% 1,000 ML IV SCH ×3 (08:30→21:16)
[2017-08-07] MEDS ORDERED: POTASSIUM CHLORIDE 50 ML IVPB SCH (08:30)
--- NOTE | 2017-08-07 08:30 | CONS ---
Date/Time of Note Date/Time of Note DATE: 08/07/17 TIME: 08:26 Assessment/Plan Assessment/Plan Additional Assessment/Plan 1. Acute renal failure resolved. 2. Recurrent hypernatremia, will start D5W 3. K+ is now nl, will give additional KCL and try to diurese, solucortef may now being contrib to low K 4. Edema noted as well as last cxr, low albumin contributing 5. Bradycardia persists, per cardiology re pacemaker Consultation Date/Type/Reason Admit Date/Time Jul 24, 2017 at 11:53 Initial Consult Date 07/25/17 Type of Consultation: Pulm/CCM 24 HR Interval Summary Constitutional: other (feeling better) Detailed Summary Respiratory: shortness of breath (is mild) Cardiovascular: No chest pain Gastrointestinal: no complaints Genitourinary: other (holman in place) Exam/Review of Systems Vital Signs Vitals Vital Signs Date Time Temp Pulse Resp B/P Pulse Ox O2 Delivery O2 Flow Rate FiO2 08/07/17 07:00 43 18 116/50 98 Nasal Cannula 2.0 08/07/17 04:00 97.8 08/04/17 20:20 28 Intake and Output 08/06/17 08/06/17 08/07/17 15:00 23:00 07:00 Intake Total 730 ml 866.66 ml 560 ml Output Total 380 ml 460 ml 430 ml Balance 350 ml 406.66 ml 130 ml Exam Neck: No jvd Respiratory: clear to auscultation Cardiovascular: regular rate and rhythm Gastrointestinal: soft Extremities: edema (unchanged 3+ sacral and legs) Results Result Diagram: 08/07/17 0340 08/07/17 0340 Results 24 hrs Laboratory Tests Test 08/06/17 08:32 08/06/17 09:00 08/06/17 12:35 08/06/17 16:05 Bedside Glucose 96 82 Urine Random Sodium 22 L Urine Random Potassium 51.2 Potassium Level 3.7 Test 08/06/17 16:07 08/06/17 21:05 08/07/17 01:25 08/07/17 03:40 Bedside Glucose 99 86 93 White Blood Count 8.0 Red Blood Count 2.74 L Hemoglobin 9.3 L Hematocrit 29.0 L Mean Corpuscular Volume 105.8 H Mean Corpuscular Hemoglobin 33.9 H Mean Corpuscular Hemoglobin Concent 32.1 Red Cell Distribution Width 15.3 H Platelet Count 115 L Mean Platelet Volume 12.4 H Neutrophils % 83.5 H Lymphocytes % 8.2 L Monocytes % 7.8 Eosinophils % 0.1 Basophils % 0.0 Nucleated Red Blood Cells % 0.0 Neutrophils # 6.7 Lymphocytes # 0.7 L Monocytes # 0.6 Eosinophils # 0.0 Basophils # 0.0 Nucleated Red Blood Cells # 0.0 Sodium Level 149 H Potassium Level 3.8 Chloride Level 116 H Carbon Dioxide Level 33 H Anion Gap 4 L Blood Urea Nitrogen 28 H Creatinine 0.56 Glucose Level 99 Calcium Level 8.3 L Phosphorus Level 3.2 Magnesium Level 2.1 Test 08/07/17 04:36 08/07/17 04:40 Bedside Glucose 101 Urine Color YELLOW Urine Clarity SLIGHTLY CLOUDY A Urine pH 6.0 Urine Specific [place] 1.015 Urine Ketones NEGATIVE Urine Nitrite NEGATIVE Urine Bilirubin NEGATIVE Urine Urobilinogen NEGATIVE Urine Leukocyte Esterase 2+ H Urine Microscopic RBC 3 Urine Microscopic WBC 64 H Urine Mucus FEW A Urine Hemoglobin 2+ H Urine Glucose 1+ H Urine Total Protein 1+ H Medications Medications Current Medications Morphine Sulfate (morphine) 2 mg Q4H PRN IV back pain Last administered on 05:40; Admin Dose 2 MG; Start 07/24/17 at 17:30 Ondansetron HCl (Zofran Inj) 4 mg Q6H PRN IV NAUSEA AND/OR VOMITING; Start at 19:00 Morphine Sulfate (morphine) 4 mg Q4H PRN IV PAIN LEVEL 7-10 Last administered on 08/03/17 10:05; Admin Dose 4 MG; Start 07/24/17 at 19:00 Diagnostic Test (Pha) (Accu-Chek) 1 ea 02 XX Last administered on 08/02/17 01: 06; Admin Dose 1 EA; Start 07/26/17 at 02:00 Insulin Aspart (Novolog Insulin Pen) NOVOLOG *MILD* ALGORI... Q4 SC Last administered on 08/04/17 17:40; Admin Dose 1 UNIT; Start 07/25/17 at 13:00 Miscellaneous Information 1 ea NOTE XX ; Start 07/25/17 at 10:30 Glucose (Glutose) 15 gm Q15M PRN PO DECREASED GLUCOSE; Start 07/25/17 at 10:30 Glucose (Glutose) 22.5 gm Q15M PRN PO DECREASED GLUCOSE; Start 07/25/17 at 10: 30 Dextrose (D50w Syringe) 25 ml Q15M PRN IV DECREASED GLUCOSE; Start 07/25/17 at 10:30 Dextrose (D50w Syringe) 50 ml Q15M PRN IV DECREASED GLUCOSE; Start 07/25/17 at 10:30 Glucagon (Glucagen) 1 mg Q15M PRN IM DECREASED GLUCOSE; Start 07/25/17 at 10:30 Glucose (Glutose) 15 gm Q15M PRN BUCCAL DECREASED GLUCOSE; Start 07/25/17 at 10 :30 Nystatin (Nystatin Powder) 1 applic BID TOP Last administered on 08/06/17 21: 06; Admin Dose 1 APPLIC; Start 07/25/17 at 13:00 IV Flush (NS 10 ml) 10 ml PRN PRN IV IV PROTOCOL; Start 07/25/17 at 17:30 Acetaminophen (Tylenol Liquid) 650 mg Q6H PRN NGT PAIN AND OR ELEVATED TEMP Last administered on 08/04/17 05:44; Admin Dose 650 MG; Start 07/27/17 at 20:30 Famotidine (Pepcid Iv) 20 mg Q12 IV Last administered on 08/06/17 21:06; Admin Dose 20 MG; Start 08/01/17 at 09:00 Atropine Sulfate 0.5 mg 0.5 mg PRN PRN IV DECREASED HEART RATE Last administered on 08/03/17 09:36; Admin Dose 0.5 MG; Start 08/01/17 at 10:30 Sodium Chloride 1,000 ml @ 50 mls/hr Q20H IV Last administered on 08/07/17 04:09; Admin Dose 50 MLS/HR; Start 08/05/17 at 08:00 Vancomycin HCl 1.25 gm/Sodium Chloride 250 ml @ 83.333 mls/ hr Q24H IVPB Last administered on 08/06/17 17:05; Admin Dose 83.333 MLS/HR; Start 08/06/17 at 18:00 Meropenem/Sodium Chloride (Merrem 1 Gm/50 ml (Pmx)) 50 ml @ 100 mls/hr Q12 IVPB Last administered on 08/06/17 21:14; Admin Dose 100 MLS/HR; Start 08/06 at 21:00 Hydrocortisone (Solu-Cortef) 50 mg Q8 IV Last administered on 08/07/17t 05:43 ; Admin Dose 50 MG; Start 08/06/17 at 22:00 MELVA SHANNON MD Aug 07, 2017 08:30
[2017-08-07] MEDS: NYSTATIN 30 GM POWDER BTL TOP SCH ×2 (08:36→21:14)
[2017-08-07] MEDS: MEROPENEM 1 GM/50ML(PMX) 50 ML IVPB SCH (08:36)
[2017-08-07] MEDS: FAMOTIDINE 20 MG INJ IV SCH ×2 (08:36→21:11)
[2017-08-07] MEDS: BALSAM PERU/CASTOR OIL 60 GM TUBE TOP SCH ×2 (08:37→21:15)
--- NOTE | 2017-08-07 08:41 | PN ---
Date/Time of Note Date/Time of Note DATE: 08/07/17 TIME: 08:40 Assessment/Plan VTE Prophylaxis VTE Prophylaxis Intervention: SCD's Lines/Catheters IV Catheter Type (from Nrs): PICC Line Central line still needed: No Urinary Cath still in place: Yes Reason Cath still needed: urinary retention Assessment/Plan Assessment/Plan 1. Encephalopathy improving 2. Hypoxemic and hypercapnic respiratory failure 3. Status post gram-negative septic shock 4. Thrombocytopenia. 5. Renal insufficiency likely ATN injury on top of chronic renal insufficiency. 6. Sinus Bradycardia 7. s/p Fluid overload 8.s s/p hypokalemia Plan 2. Continue broad-spectrum antibiotic coverage, 5. off dopamine if remasin in the 40s, will avoid PPM and outptient event recorder 6. s/p bumex drip - renal involved 7. s/p atropine for bradycardia no pacer necessary for nowbut probable SSS 8.outptient loop recorder vs event recorder Subjective 24 Hr Interval Summary Free Text/Dictation the patinet with no change Exam/Review of Systems Vital Signs Vitals Vital Signs Date Time Temp Pulse Resp B/P Pulse Ox O2 Delivery O2 Flow Rate FiO2 08/07/17 07:00 43 18 116/50 98 Nasal Cannula 2.0 08/07/17 04:00 97.8 08/04/17 20:20 28 Intake and Output 08/06/17 08/06/17 08/07/17 15:00 23:00 07:00 Intake Total 730 ml 866.66 ml 560 ml Output Total 380 ml 460 ml 430 ml Balance 350 ml 406.66 ml 130 ml Results Result Diagram: 08/07/17 0340 08/07/17 0340 Results 24 hrs Laboratory Tests Test 08/06/17 09:00 08/06/17 12:35 08/06/17 16:05 08/06/17 16:07 Urine Random Sodium 22 L Urine Random Potassium 51.2 Bedside Glucose 82 99 Potassium Level 3.7 Test 08/06/17 21:05 08/07/17 01:25 08/07/17 03:40 08/07/17 04:36 Bedside Glucose 86 93 101 White Blood Count 8.0 Red Blood Count 2.74 L Hemoglobin 9.3 L Hematocrit 29.0 L Mean Corpuscular Volume 105.8 H Mean Corpuscular Hemoglobin 33.9 H Mean Corpuscular Hemoglobin Concent 32.1 Red Cell Distribution Width 15.3 H Platelet Count 115 L Mean Platelet Volume 12.4 H Neutrophils % 83.5 H Lymphocytes % 8.2 L Monocytes % 7.8 Eosinophils % 0.1 Basophils % 0.0 Nucleated Red Blood Cells % 0.0 Neutrophils # 6.7 Lymphocytes # 0.7 L Monocytes # 0.6 Eosinophils # 0.0 Basophils # 0.0 Nucleated Red Blood Cells # 0.0 Sodium Level 149 H Potassium Level 3.8 Chloride Level 116 H Carbon Dioxide Level 33 H Anion Gap 4 L Blood Urea Nitrogen 28 H Creatinine 0.56 Glucose Level 99 Calcium Level 8.3 L Phosphorus Level 3.2 Magnesium Level 2.1 Test 08/07/17 04:40 Urine Color YELLOW Urine Clarity SLIGHTLY CLOUDY A Urine pH 6.0 Urine Specific [place] 1.015 Urine Ketones NEGATIVE Urine Nitrite NEGATIVE Urine Bilirubin NEGATIVE Urine Urobilinogen NEGATIVE Urine Leukocyte Esterase 2+ H Urine Microscopic RBC 3 Urine Microscopic WBC 64 H Urine Mucus FEW A Urine Hemoglobin 2+ H Urine Glucose 1+ H Urine Total Protein 1+ H Medications Medications Current Medications Morphine Sulfate (morphine) 2 mg Q4H PRN IV back pain Last administered on 05:40; Admin Dose 2 MG; Start 07/24/17 at 17:30 Ondansetron HCl (Zofran Inj) 4 mg Q6H PRN IV NAUSEA AND/OR VOMITING; Start at 19:00 Morphine Sulfate (morphine) 4 mg Q4H PRN IV PAIN LEVEL 7-10 Last administered on 08/03/17 10:05; Admin Dose 4 MG; Start 07/24/17 at 19:00 Diagnostic Test (Pha) (Accu-Chek) 1 ea 02 XX Last administered on 08/02/17 01: 06; Admin Dose 1 EA; Start 07/26/17 at 02:00 Insulin Aspart (Novolog Insulin Pen) NOVOLOG *MILD* ALGORI... Q4 SC Last administered on 08/04/17 17:40; Admin Dose 1 UNIT; Start 07/25/17 at 13:00 Miscellaneous Information 1 ea NOTE XX ; Start 07/25/17 at 10:30 Glucose (Glutose) 15 gm Q15M PRN PO DECREASED GLUCOSE; Start 07/25/17 at 10:30 Glucose (Glutose) 22.5 gm Q15M PRN PO DECREASED GLUCOSE; Start 07/25/17 at 10: 30 Dextrose (D50w Syringe) 25 ml Q15M PRN IV DECREASED GLUCOSE; Start 07/25/17 at 10:30 Dextrose (D50w Syringe) 50 ml Q15M PRN IV DECREASED GLUCOSE; Start 07/25/17 at 10:30 Glucagon (Glucagen) 1 mg Q15M PRN IM DECREASED GLUCOSE; Start 07/25/17 at 10:30 Glucose (Glutose) 15 gm Q15M PRN BUCCAL DECREASED GLUCOSE; Start 07/25/17 at 10 :30 Nystatin (Nystatin Powder) 1 applic BID TOP Last administered on 08/06/17 21: 06; Admin Dose 1 APPLIC; Start 07/25/17 at 13:00 IV Flush (NS 10 ml) 10 ml PRN PRN IV IV PROTOCOL; Start 07/25/17 at 17:30 Acetaminophen (Tylenol Liquid) 650 mg Q6H PRN NGT PAIN AND OR ELEVATED TEMP Last administered on 08/04/17 05:44; Admin Dose 650 MG; Start 07/27/17 at 20:30 Famotidine (Pepcid Iv) 20 mg Q12 IV Last administered on 08/06/17 21:06; Admin Dose 20 MG; Start 08/01/17 at 09:00 Atropine Sulfate 0.5 mg 0.5 mg PRN PRN IV DECREASED HEART RATE Last administered on 08/03/17 09:36; Admin Dose 0.5 MG; Start 08/01/17 at 10:30 Vancomycin HCl 1.25 gm/Sodium Chloride 250 ml @ 83.333 mls/ hr Q24H IVPB Last administered on 08/06/17 17:05; Admin Dose 83.333 MLS/HR; Start 08/06/17 at 18:00 Meropenem/Sodium Chloride (Merrem 1 Gm/50 ml (Pmx)) 50 ml @ 100 mls/hr Q12 IVPB Last administered on 08/06/17 21:14; Admin Dose 100 MLS/HR; Start 08/06 at 21:00 Hydrocortisone 50 mg 50 mg Q8 IV Last administered on 08/07/17 05:43; Admin Dose 50 MG; Start 08/06/17 at 22:00 Potassium Chloride 50 ml @ 25 mls/hr Q2H IVPB ; Start 08/07/17 at 08:30; Stop 08/07/17 at 14:29 Dextrose (D5W) 1,000 ml @ 100 mls/hr Q10H IV ; Start 08/07/17 at 08:30 JENNIE LEY MD Aug 07, 2017 08:41
[2017-08-07] MEDS ORDERED: POTASSIUM CHLORIDE 250 ML IVPB ONE (11:00)
--- NOTE | 2017-08-07 11:53 | CONS ---
Date/Time of Note Date/Time of Note DATE: 08/07/17 TIME: 11:51 Assessment/Plan Assessment/Plan Additional Assessment/Plan Assessment and recommendations; 1. Patient admitted with respiratory failure due to E. coli sepsis with marked overall clinical improvement. 2. Anemia and thrombocytopenia. Next Continue current treatment. Patient can be transferred to the medical floor. Consultation Date/Type/Reason Admit Date/Time Jul 24, 2017 at 11:53 Initial Consult Date 07/25/17 Type of Consultation: Pulm/CCM 24 HR Interval Summary Free Text/Dictation Patient's condition is stable. Remains completely awake and alert. Denies any shortness of breath, chest pain. General exam; elderly woman, awake and alert. Currently in no distress. Exam/Review of Systems Vital Signs Vitals Vital Signs Date Time Temp Pulse Resp B/P Pulse Ox O2 Delivery O2 Flow Rate FiO2 08/07/17 08:00 Nasal Cannula 3.0 08/07/17 08:00 31 08/07/17 08:00 97.6 18 134/44 98 08/04/17 20:20 28 Intake and Output 08/06/17 08/06/17 08/07/17 15:00 23:00 07:00 Intake Total 730 ml 866.66 ml 560 ml Output Total 380 ml 460 ml 430 ml Balance 350 ml 406.66 ml 130 ml Exam HEENT exam; supple neck, no JVD. No lymphadenopathy. Midline trachea. No thyromegaly. Pharynx is clear. Patient has fair dentition. Pupils are midsize and reactive to light. Chest exam; clear to auscultation. S1-S2 audible, no murmurs. Regular rhythm. Abdomen exam; soft, protuberant. Nontender. No organomegaly. Bowel sounds audible. Extremity exam; 2+ pitting edema lower extremities bilaterally. This is 1+ bilaterally. MANAGER ASSET exam; no focal deficit. Results Result Diagram: 08/07/17 0340 08/07/17 0340 Results 24 hrs Laboratory Tests Test 08/06/17 12:35 08/06/17 16:05 08/06/17 16:07 08/06/17 21:05 Bedside Glucose 82 99 86 Potassium Level 3.7 Test 08/07/17 01:25 08/07/17 03:40 08/07/17 04:36 08/07/17 04:40 Bedside Glucose 93 101 White Blood Count 8.0 Red Blood Count 2.74 L Hemoglobin 9.3 L Hematocrit 29.0 L Mean Corpuscular Volume 105.8 H Mean Corpuscular Hemoglobin 33.9 H Mean Corpuscular Hemoglobin Concent 32.1 Red Cell Distribution Width 15.3 H Platelet Count 115 L Mean Platelet Volume 12.4 H Neutrophils % 83.5 H Lymphocytes % 8.2 L Monocytes % 7.8 Eosinophils % 0.1 Basophils % 0.0 Nucleated Red Blood Cells % 0.0 Neutrophils # 6.7 Lymphocytes # 0.7 L Monocytes # 0.6 Eosinophils # 0.0 Basophils # 0.0 Nucleated Red Blood Cells # 0.0 Sodium Level 149 H Potassium Level 3.8 Chloride Level 116 H Carbon Dioxide Level 33 H Anion Gap 4 L Blood Urea Nitrogen 28 H Creatinine 0.56 Glucose Level 99 Calcium Level 8.3 L Phosphorus Level 3.2 Magnesium Level 2.1 Urine Color YELLOW Urine Clarity SLIGHTLY CLOUDY A Urine pH 6.0 Urine Specific [place] 1.015 Urine Ketones NEGATIVE Urine Nitrite NEGATIVE Urine Bilirubin NEGATIVE Urine Urobilinogen NEGATIVE Urine Leukocyte Esterase 2+ H Urine Microscopic RBC 3 Urine Microscopic WBC 64 H Urine Mucus FEW A Urine Hemoglobin 2+ H Urine Glucose 1+ H Urine Total Protein 1+ H Test 08/07/17 08:52 08/07/17 11:42 Bedside Glucose 93 112 Medications Medications Current Medications Morphine Sulfate (morphine) 2 mg Q4H PRN IV back pain Last administered on 10:49; Admin Dose 2 MG; Start 07/24/17 at 17:30 Ondansetron HCl (Zofran Inj) 4 mg Q6H PRN IV NAUSEA AND/OR VOMITING; Start at 19:00 Morphine Sulfate (morphine) 4 mg Q4H PRN IV PAIN LEVEL 7-10 Last administered on 08/03/17 10:05; Admin Dose 4 MG; Start 07/24/17 at 19:00 Diagnostic Test (Pha) (Accu-Chek) 1 ea 02 XX Last administered on 08/02/17 01: 06; Admin Dose 1 EA; Start 07/26/17 at 02:00 Insulin Aspart (Novolog Insulin Pen) NOVOLOG *MILD* ALGORI... Q4 SC Last administered on 08/04/17 17:40; Admin Dose 1 UNIT; Start 07/25/17 at 13:00 Miscellaneous Information 1 ea NOTE XX ; Start 07/25/17 at 10:30 Glucose (Glutose) 15 gm Q15M PRN PO DECREASED GLUCOSE; Start 07/25/17 at 10:30 Glucose (Glutose) 22.5 gm Q15M PRN PO DECREASED GLUCOSE; Start 07/25/17 at 10: 30 Dextrose (D50w Syringe) 25 ml Q15M PRN IV DECREASED GLUCOSE; Start 07/25/17 at 10:30 Dextrose (D50w Syringe) 50 ml Q15M PRN IV DECREASED GLUCOSE; Start 07/25/17 at 10:30 Glucagon (Glucagen) 1 mg Q15M PRN IM DECREASED GLUCOSE; Start 07/25/17 at 10:30 Glucose (Glutose) 15 gm Q15M PRN BUCCAL DECREASED GLUCOSE; Start 07/25/17 at 10 :30 Nystatin (Nystatin Powder) 1 applic BID TOP Last administered on 08/07/17 08: 36; Admin Dose 1 APPLIC; Start 07/25/17 at 13:00 IV Flush (NS 10 ml) 10 ml PRN PRN IV IV PROTOCOL; Start 07/25/17 at 17:30 Acetaminophen (Tylenol Liquid) 650 mg Q6H PRN NGT PAIN AND OR ELEVATED TEMP Last administered on 08/04/17 05:44; Admin Dose 650 MG; Start 07/27/17 at 20:30 Famotidine (Pepcid Iv) 20 mg Q12 IV Last administered on 08/07/17 08:36; Admin Dose 20 MG; Start 08/01/17 at 09:00 Atropine Sulfate 0.5 mg 0.5 mg PRN PRN IV DECREASED HEART RATE Last administered on 08/03/17 09:36; Admin Dose 0.5 MG; Start 08/01/17 at 10:30 Vancomycin HCl 1.25 gm/Sodium Chloride 250 ml @ 83.333 mls/ hr Q24H IVPB Last administered on 08/06/17 17:05; Admin Dose 83.333 MLS/HR; Start 08/06/17 at 18:00 Meropenem/Sodium Chloride (Merrem 1 Gm/50 ml (Pmx)) 50 ml @ 100 mls/hr Q12 IVPB Last administered on 08/07/17 08:36; Admin Dose 100 MLS/HR; Start 08/06 at 21:00 Hydrocortisone 50 mg 50 mg Q8 IV Last administered on 08/07/17 05:43; Admin Dose 50 MG; Start 08/06/17 at 22:00 Dextrose 1,000 ml @ 100 mls/hr Q10H IV Last administered on 08/07/17 08:30; Admin Dose 100 MLS/HR; Start 08/07/17 at 08:30 Potassium Chloride 250 ml @ 62.5 mls/hr ONCE ONCE IVPB ; Start 08/07/17 at 11 :00; Stop 08/07/17 at 14:59 Potassium Chloride (KCl 10 MEQ/50 ML SW) 50 ml @ 50 mls/hr Q1H IVPB ; Start 09/13 at 11:00; Stop 08/07/17 at 12:59 IVETTE SINGER Aug 07, 2017 11:53
--- NOTE | 2017-08-07 12:53 | PN ---
Date/Time of Note Date/Time of Note DATE: 08/07/17 TIME: 12:46 Assessment/Plan VTE Prophylaxis VTE Prophylaxis Intervention: contraindicated VTE Contraindication Reason: thrombocytopenia (low plt count) Lines/Catheters IV Catheter Type (from Nrsg): PICC Line Urinary Cath still in place: Yes Subjective 24 Hr Interval Summary Free Text/Dictation alert and fluent main complaint is back pain with probable vertebral fx seen on initial ct. will get furthere evaluation after hida scan is complete not sob lying flat, hr still low at times, not clear what further proceedures need to be done. remains on vanco, will see if it can be dcd per id will stop hydrocortisone after last dose tomorrow. chems noted, discussed w dr collins. abd is soft, legs no bruising, still some edema noted. plan...try to mobilize tho back pain and size are issues, try to streamline or dc meds await hida scan results now on puree diet Constitutional: requiring O2 Musculoskeletal: back pain Exam/Review of Systems Vital Signs Vitals Vital Signs Date Time Temp Pulse Resp B/P Pulse Ox O2 Delivery O2 Flow Rate FiO2 08/07/17 08:00 Nasal Cannula 3.0 08/07/17 08:00 31 08/07/17 08:00 97.6 18 134/44 98 08/04/17 20:20 28 Intake and Output 08/06/17 08/06/17 08/07/17 15:00 23:00 07:00 Intake Total 730 ml 866.66 ml 560 ml Output Total 380 ml 460 ml 430 ml Balance 350 ml 406.66 ml 130 ml Results Result Diagram: 08/07/17 0340 08/07/17 0340 Results 24 hrs Laboratory Tests Test 08/06/17 16:05 08/06/17 16:07 08/06/17 21:05 08/07/17 01:25 Potassium Level 3.7 Bedside Glucose 99 86 93 Test 08/07/17 03:40 08/07/17 04:36 08/07/17 04:40 08/07/17 08:52 White Blood Count 8.0 Red Blood Count 2.74 L Hemoglobin 9.3 L Hematocrit 29.0 L Mean Corpuscular Volume 105.8 H Mean Corpuscular Hemoglobin 33.9 H Mean Corpuscular Hemoglobin Concent 32.1 Red Cell Distribution Width 15.3 H Platelet Count 115 L Mean Platelet Volume 12.4 H Neutrophils % 83.5 H Lymphocytes % 8.2 L Monocytes % 7.8 Eosinophils % 0.1 Basophils % 0.0 Nucleated Red Blood Cells % 0.0 Neutrophils # 6.7 Lymphocytes # 0.7 L Monocytes # 0.6 Eosinophils # 0.0 Basophils # 0.0 Nucleated Red Blood Cells # 0.0 Sodium Level 149 H Potassium Level 3.8 Chloride Level 116 H Carbon Dioxide Level 33 H Anion Gap 4 L Blood Urea Nitrogen 28 H Creatinine 0.56 Glucose Level 99 Calcium Level 8.3 L Phosphorus Level 3.2 Magnesium Level 2.1 Bedside Glucose 101 93 Urine Color YELLOW Urine Clarity SLIGHTLY CLOUDY A Urine pH 6.0 Urine Specific [place] 1.015 Urine Ketones NEGATIVE Urine Nitrite NEGATIVE Urine Bilirubin NEGATIVE Urine Urobilinogen NEGATIVE Urine Leukocyte Esterase 2+ H Urine Microscopic RBC 3 Urine Microscopic WBC 64 H Urine Mucus FEW A Urine Hemoglobin 2+ H Urine Glucose 1+ H Urine Total Protein 1+ H Test 08/07/17 11:42 Bedside Glucose 112 Medications Medications Current Medications Morphine Sulfate (morphine) 2 mg Q4H PRN IV back pain Last administered on 10:49; Admin Dose 2 MG; Start 07/24/17 at 17:30 Ondansetron HCl (Zofran Inj) 4 mg Q6H PRN IV NAUSEA AND/OR VOMITING; Start at 19:00 Morphine Sulfate (morphine) 4 mg Q4H PRN IV PAIN LEVEL 7-10 Last administered on 08/03/17 10:05; Admin Dose 4 MG; Start 07/24/17 at 19:00 Diagnostic Test (Pha) (Accu-Chek) 1 ea 02 XX Last administered on 08/02/17 01: 06; Admin Dose 1 EA; Start 07/26/17 at 02:00 Insulin Aspart (Novolog Insulin Pen) NOVOLOG *MILD* ALGORI... Q4 SC Last administered on 08/04/17 17:40; Admin Dose 1 UNIT; Start 07/25/17 at 13:00 Miscellaneous Information 1 ea NOTE XX ; Start 07/25/17 at 10:30 Glucose (Glutose) 15 gm Q15M PRN PO DECREASED GLUCOSE; Start 07/25/17 at 10:30 Glucose (Glutose) 22.5 gm Q15M PRN PO DECREASED GLUCOSE; Start 07/25/17 at 10: 30 Dextrose (D50w Syringe) 25 ml Q15M PRN IV DECREASED GLUCOSE; Start 07/25/17 at 10:30 Dextrose (D50w Syringe) 50 ml Q15M PRN IV DECREASED GLUCOSE; Start 07/25/17 at 10:30 Glucagon (Glucagen) 1 mg Q15M PRN IM DECREASED GLUCOSE; Start 07/25/17 at 10:30 Glucose (Glutose) 15 gm Q15M PRN BUCCAL DECREASED GLUCOSE; Start 07/25/17 at 10 :30 Nystatin (Nystatin Powder) 1 applic BID TOP Last administered on 08/07/17 08: 36; Admin Dose 1 APPLIC; Start 07/25/17 at 13:00 IV Flush (NS 10 ml) 10 ml PRN PRN IV IV PROTOCOL; Start 07/25/17 at 17:30 Acetaminophen (Tylenol Liquid) 650 mg Q6H PRN NGT PAIN AND OR ELEVATED TEMP Last administered on 08/04/17 05:44; Admin Dose 650 MG; Start 07/27/17 at 20:30 Famotidine (Pepcid Iv) 20 mg Q12 IV Last administered on 08/07/17 08:36; Admin Dose 20 MG; Start 08/01/17 at 09:00 Atropine Sulfate 0.5 mg 0.5 mg PRN PRN IV DECREASED HEART RATE Last administered on 08/03/17 09:36; Admin Dose 0.5 MG; Start 08/01/17 at 10:30 Vancomycin HCl 1.25 gm/Sodium Chloride 250 ml @ 83.333 mls/ hr Q24H IVPB Last administered on 08/06/17 17:05; Admin Dose 83.333 MLS/HR; Start 08/06/17 at 18:00 Meropenem/Sodium Chloride 50 ml @ 100 mls/hr Q12 IVPB Last administered on 08:36; Admin Dose 100 MLS/HR; Start 08/06/17 at 21:00 Dextrose 1,000 ml @ 100 mls/hr Q10H IV Last administered on 08/07/17 08:30; Admin Dose 100 MLS/HR; Start 08/07/17 at 08:30 Potassium Chloride 250 ml @ 62.5 mls/hr ONCE ONCE IVPB ; Start 08/07/17 at 11 :00; Stop 08/07/17 at 14:59 Potassium Chloride (KCl 10 MEQ/50 ML SW) 50 ml @ 50 mls/hr Q1H IVPB ; Start 09/13 at 11:00; Stop 08/07/17 at 12:59 Hydrocortisone (Solu-Cortef) 50 mg DAILY IV ; Start 08/08/17 at 09:00; Stop at 08:59; Status UNV PIPER SANTANA MD Aug 07, 2017 12:53
--- NOTE | 2017-08-07 14:50 | PN ---
DATE: 08/07/2017 SUBJECTIVE: No events overnight. Patient is alert, feels good. Denies pain, discomfort. No fever s. VITAL SIGNS: Stable. WBC temperature 97.6, pulse 47, respirations 18, blood pressure 134/44, saturation 98% on 2 liters. WBC 8, H and H 9.3 and 29, platelets 115, neutrophils 83.5, BUN 28, creatinine 0.56. ANTIMICROBIALS: 1. Vancomycin. 2. Merrem. INDWELLINGS: The patient has a Cartagena catheter, PICC line. PHYSICAL EXAMINATION: GENERAL: Well-developed, obese, elderly woman who is awake, in no distress. HEENT: Head atraumatic, normocephalic. Sclerae anicteric. Buccal mucosa dry. NECK: Supple. CHEST: Rise symmetrical. Breath sounds diminished to bases. HEART: S1, S2. ABDOMEN: Soft, bowel tones present. EXTREMITIES: Without cyanosis. ASSESSMENT: 1. Status post septic shock. 2. Status post Escherichia coli extended-spectrum beta-lactamase with bacteremia. 3. Resolving left lower extremity cellulitis. 4. Sinus bradycardia. 5. Status post acute kidney failure, resolved. PLAN: We are going to change meropenem to Rocephin to complete treatment for bacteremia for a coup le more days. Discontinue vancomycin. Continue anti-aspiration measures. Follow recommendations o f consultants. Dictated By: ERICKA LEGER [employer] ASSISTANT for [employer]/ABBY Conf#: [id number] DID#: [id number]
--- NOTE | 2017-08-07 16:20 | RADRPT ---
PROCEDURE: HIDA scan CLINICAL INDICATION: 71 -year-old patient with gallstones TECHNIQUE: Following the intravenous injection of 9.2 mCi of Tc-99m mebrofenin, multiple images of the abdomen were obtained up to 60-minutes post injection. COMPARISON: No prior HIDA scans. FINDINGS: The liver is promptly visualized, demonstrates homogeneous distribution of radionuclide. There is visualization of the common bile duct, gallbladder and gastrointestinal activity within nor mal time. IMPRESSION: No scintigraphic evidence to suggest the presence of common bile or cystic ducts obstruction. RPTAT: HH Physician Abdiel Date Time Electronically viewed and signed by Physician Abdiel on 08/07/2017 16:19 /
[2017-08-07] MEDS: POTASSIUM CHLORIDE 50 ML IVPB SCH ×5 (17:07→19:52)
[2017-08-07] MEDS: CEFTRIAXONE 1 GM/50 ML (PMX) 50 ML IVPB SCH (17:08)
--- NOTE | 2017-08-07 17:50 | CONS ---
Date/Time of Note Date/Time of Note DATE: 08/07/17 TIME: 17:47 Consultation Date/Type/Reason Admit Date/Time Jul 24, 2017 at 11:53 Date of Consultation: Aug 07, 2017 Type of Consultation: ORTHOPEDIC SURGERY Reason for Consultation BACK PAIN Referring Provider: PIPER SANTANA MD Hx of Present Illness Patient is a 71-year-old female who was admitted to [facility] on July 24, 2017 with suspicion of a stroke. She has had multiple studies including a CT scan of the abdomen/pelvis which reportedly demonstrates a fracture of L1. I have taken the liberty of ordering x-rays and MRI of the lumbar spine pending approval by Dr. SANTANA a complete consultation dictation will be forthcoming through the dictation system. Thank you for the opportunity of participating in the care of this pleasant woman. . Constitutional: requiring O2 Respiratory: shortness of breath (is mild) Cardiovascular: No chest pain Gastrointestinal: no complaints Genitourinary: other (holman in place) Musculoskeletal: back pain Neurologic: No headache Social History Smoking Status: Former smoker Exam/Review of Systems Vital Signs Vitals Vital Signs Date Time Temp Pulse Resp B/P Pulse Ox O2 Delivery O2 Flow Rate FiO2 08/07/17 16:29 98.2 85 18 134/92 94 08/07/17 12:00 Nasal Cannula 2.0 08/04/17 20:20 28 Intake and Output 08/06/17 08/06/17 08/07/17 15:00 23:00 07:00 Intake Total 730 ml 866.66 ml 560 ml Output Total 380 ml 460 ml 430 ml Balance 350 ml 406.66 ml 130 ml Results Result Diagram: 08/07/17 0340 08/07/17 0340 Results 24 hrs Laboratory Tests Test 08/06/17 21:05 08/07/17 01:25 08/07/17 03:40 08/07/17 04:36 Bedside Glucose 86 93 101 White Blood Count 8.0 Red Blood Count 2.74 L Hemoglobin 9.3 L Hematocrit 29.0 L Mean Corpuscular Volume 105.8 H Mean Corpuscular Hemoglobin 33.9 H Mean Corpuscular Hemoglobin Concent 32.1 Red Cell Distribution Width 15.3 H Platelet Count 115 L Mean Platelet Volume 12.4 H Neutrophils % 83.5 H Lymphocytes % 8.2 L Monocytes % 7.8 Eosinophils % 0.1 Basophils % 0.0 Nucleated Red Blood Cells % 0.0 Neutrophils # 6.7 Lymphocytes # 0.7 L Monocytes # 0.6 Eosinophils # 0.0 Basophils # 0.0 Nucleated Red Blood Cells # 0.0 Sodium Level 149 H Potassium Level 3.8 Chloride Level 116 H Carbon Dioxide Level 33 H Anion Gap 4 L Blood Urea Nitrogen 28 H Creatinine 0.56 Glucose Level 99 Calcium Level 8.3 L Phosphorus Level 3.2 Magnesium Level 2.1 Test 08/07/17 04:40 08/07/17 08:52 08/07/17 11:42 08/07/17 17:05 Urine Color YELLOW Urine Clarity SLIGHTLY CLOUDY A Urine pH 6.0 Urine Specific [place] 1.015 Urine Ketones NEGATIVE Urine Nitrite NEGATIVE Urine Bilirubin NEGATIVE Urine Urobilinogen NEGATIVE Urine Leukocyte Esterase 2+ H Urine Microscopic RBC 3 Urine Microscopic WBC 64 H Urine Mucus FEW A Urine Hemoglobin 2+ H Urine Glucose 1+ H Urine Total Protein 1+ H Bedside Glucose 93 112 112 Medications Medications Current Medications Morphine Sulfate (morphine) 2 mg Q4H PRN IV back pain Last administered on 10:49; Admin Dose 2 MG; Start 07/24/17 at 17:30 Ondansetron HCl (Zofran Inj) 4 mg Q6H PRN IV NAUSEA AND/OR VOMITING; Start at 19:00 Morphine Sulfate (morphine) 4 mg Q4H PRN IV PAIN LEVEL 7-10 Last administered on 08/03/17 10:05; Admin Dose 4 MG; Start 07/24/17 at 19:00 Diagnostic Test (Pha) (Accu-Chek) 1 ea 02 XX Last administered on 08/02/17 01: 06; Admin Dose 1 EA; Start 07/26/17 at 02:00 Insulin Aspart (Novolog Insulin Pen) NOVOLOG *MILD* ALGORI... Q4 SC Last administered on 08/04/17 17:40; Admin Dose 1 UNIT; Start 07/25/17 at 13:00 Miscellaneous Information 1 ea NOTE XX ; Start 07/25/17 at 10:30 Glucose (Glutose) 15 gm Q15M PRN PO DECREASED GLUCOSE; Start 07/25/17 at 10:30 Glucose (Glutose) 22.5 gm Q15M PRN PO DECREASED GLUCOSE; Start 07/25/17 at 10: 30 Dextrose (D50w Syringe) 25 ml Q15M PRN IV DECREASED GLUCOSE; Start 07/25/17 at 10:30 Dextrose (D50w Syringe) 50 ml Q15M PRN IV DECREASED GLUCOSE; Start 07/25/17 at 10:30 Glucagon (Glucagen) 1 mg Q15M PRN IM DECREASED GLUCOSE; Start 07/25/17 at 10:30 Glucose (Glutose) 15 gm Q15M PRN BUCCAL DECREASED GLUCOSE; Start 07/25/17 at 10 :30 Nystatin (Nystatin Powder) 1 applic BID TOP Last administered on 08/07/17 08: 36; Admin Dose 1 APPLIC; Start 07/25/17 at 13:00 IV Flush (NS 10 ml) 10 ml PRN PRN IV IV PROTOCOL; Start 07/25/17 at 17:30 Acetaminophen (Tylenol Liquid) 650 mg Q6H PRN NGT PAIN AND OR ELEVATED TEMP Last administered on 08/04/17 05:44; Admin Dose 650 MG; Start 07/27/17 at 20:30 Famotidine (Pepcid Iv) 20 mg Q12 IV Last administered on 08/07/17 08:36; Admin Dose 20 MG; Start 08/01/17 at 09:00 Atropine Sulfate 0.5 mg 0.5 mg PRN PRN IV DECREASED HEART RATE Last administered on 08/03/17 09:36; Admin Dose 0.5 MG; Start 08/01/17 at 10:30 Dextrose (D5W) 1,000 ml @ 100 mls/hr Q10H IV Last administered on 08/07/17 08:30; Admin Dose 100 MLS/HR; Start 08/07/17 at 08:30 Hydrocortisone 50 mg 50 mg DAILY IV ; Start 08/08/17 at 09:00; Stop 08/09/17 at 08:59 Ceftriaxone Sodium 50 ml @ 100 mls/hr Q24H IVPB Last administered on 17:08; Admin Dose 100 MLS/HR; Start 08/07/17 at 14:00 Potassium Chloride (KCl 10 MEQ/50 ML SW) 50 ml @ 50 mls/hr Q1H IVPB Last administered on 08/07/17 17:07; Admin Dose 50 MLS/HR; Start 10/11/17 at 16:59 ; Stop 08/07/17 at 18:58 EDUAR ORO MD Aug 07, 2017 17:50
[2017-08-07] MEDS: ATROPINE 1 MG/10 ML SYRINGE IV PRN (18:30)
[2017-08-07] MEDS ORDERED: PENDING SANTYL ORDER FOR WOUND CARE XX PRN (19:30)
[2017-08-08] VITALS (13 sets, daily range): BP systolic 127–174; BP diastolic 62–73; PULSE 70–168; RESP 18–19
[2017-08-08] MEDS: INSULIN ASPART [NOVOLOG] 3 ML PEN SC SCH ×6 (01:00→21:00)
[2017-08-08] MEDS: ACCU-CHEK XX SCH (01:35)
[2017-08-08] MEDS: DEXTROSE 5% 1,000 ML IV SCH ×2 (04:30→13:42)
[2017-08-08] MEDS ORDERED: VITAMIN A & D 5 GM OINT PACKET TOP ONE (06:19)
--- NOTE | 2017-08-08 07:22 | CONS ---
Date/Time of Note Date/Time of Note DATE: 08/08/17 TIME: 07:19 Assessment/Plan Assessment/Plan Chief Complaint/Hosp Course Patient is a 71-year-old female who was admitted to [facility] on July 24, 2017 with suspicion of a stroke. She has had multiple studies including a CT scan of the abdomen/pelvis which reportedly demonstrates a fracture of L1. I have taken the liberty of ordering x-rays and MRI of the lumbar spine pending approval by Dr. SANTANA a complete consultation dictation will be forthcoming through the dictation system. Thank you for the opportunity of participating in the care of this pleasant woman. . Problems: Consultation Date/Type/Reason Admit Date/Time Jul 24, 2017 at 11:53 Initial Consult Date 08/07/17 Type of Consultation: ORTHOPEDIC SURGERY Referring Provider: PIPER SANTANA MD 24 HR Interval Summary Free Text/Dictation Patient is resting comfortably in bed. Her neurovascular structures are intact distally. I ordered x-rays of the lumbar spine and a lumbar MRI scan yesterday , pending approval by Dr. cheatham. Unfortunately, the nurse failed to see those orders. If those studies are approved, I will review them later today. In the interim, she will continue with her current therapies. Exam/Review of Systems Vital Signs Vitals Vital Signs Date Time Temp Pulse Resp B/P Pulse Ox O2 Delivery O2 Flow Rate FiO2 08/08/17 06:11 2.0 08/08/17 04:17 98.0 62 18 145/62 95 08/07/17 20:00 Nasal Cannula 08/04/17 20:20 28 Intake and Output 08/07/17 08/07/17 08/08/17 15:00 23:00 07:00 Intake Total 240 ml 500 ml 920 ml Output Total 1600 ml 250 ml 1000 ml Balance -1360 ml 250 ml -80 ml Results Result Diagram: 08/07/17 0340 08/07/17 0340 Results 24 hrs Laboratory Tests Test 08/07/17 08:52 08/07/17 11:42 08/07/17 17:05 08/07/17 21:06 Bedside Glucose 93 112 112 79 Test 08/08/17 01:33 08/08/17 05:37 Bedside Glucose 80 78 Medications Medications Current Medications Morphine Sulfate (morphine) 2 mg Q4H PRN IV back pain Last administered on 10:49; Admin Dose 2 MG; Start 07/24/17 at 17:30 Ondansetron HCl (Zofran Inj) 4 mg Q6H PRN IV NAUSEA AND/OR VOMITING; Start at 19:00 Morphine Sulfate (morphine) 4 mg Q4H PRN IV PAIN LEVEL 7-10 Last administered on 08/03/17 10:05; Admin Dose 4 MG; Start 07/24/17 at 19:00 Diagnostic Test (Pha) (Accu-Chek) 1 ea 02 XX Last administered on 08/08/17 01 :35; Admin Dose 1 EA; Start 07/26/17 at 02:00 Insulin Aspart (Novolog Insulin Pen) NOVOLOG *MILD* ALGORI... Q4 SC Last administered on 08/04/17 17:40; Admin Dose 1 UNIT; Start 07/25/17 at 13:00 Miscellaneous Information 1 ea NOTE XX ; Start 07/25/17 at 10:30 Glucose (Glutose) 15 gm Q15M PRN PO DECREASED GLUCOSE; Start 07/25/17 at 10:30 Glucose (Glutose) 22.5 gm Q15M PRN PO DECREASED GLUCOSE; Start 07/25/17 at 10: 30 Dextrose (D50w Syringe) 25 ml Q15M PRN IV DECREASED GLUCOSE; Start 07/25/17 at 10:30 Dextrose (D50w Syringe) 50 ml Q15M PRN IV DECREASED GLUCOSE; Start 07/25/17 at 10:30 Glucagon (Glucagen) 1 mg Q15M PRN IM DECREASED GLUCOSE; Start 07/25/17 at 10:30 Glucose (Glutose) 15 gm Q15M PRN BUCCAL DECREASED GLUCOSE; Start 07/25/17 at 10 :30 Nystatin (Nystatin Powder) 1 applic BID TOP Last administered on 08/07/17 21: 14; Admin Dose 1 APPLIC; Start 07/25/17 at 13:00 IV Flush (NS 10 ml) 10 ml PRN PRN IV IV PROTOCOL; Start 07/25/17 at 17:30 Acetaminophen (Tylenol Liquid) 650 mg Q6H PRN NGT PAIN AND OR ELEVATED TEMP Last administered on 08/04/17 05:44; Admin Dose 650 MG; Start 07/27/17 at 20:30 Famotidine (Pepcid Iv) 20 mg Q12 IV Last administered on 08/07/17 21:11; Admin Dose 20 MG; Start 08/01/17 at 09:00 Atropine Sulfate 0.5 mg 0.5 mg PRN PRN IV DECREASED HEART RATE Last administered on 08/07/17 18:30; Admin Dose 0.5 MG; Start 08/01/17 at 10:30 Dextrose (D5W) 1,000 ml @ 100 mls/hr Q10H IV Last administered on 08/07/17 21:16; Admin Dose 100 MLS/HR; Start 08/07/17 at 08:30 Hydrocortisone 50 mg 50 mg DAILY IV ; Start 08/08/17 at 09:00; Stop 08/09/17 at 08:59 Ceftriaxone Sodium (Rocephin) 50 ml @ 100 mls/hr Q24H IVPB Last administered on 08/07/17 17:08; Admin Dose 100 MLS/HR; Start 08/07/17 at 14:00 Miscellaneous Information (Pending [facility] Order For Wound Care) This patient kuhn... PRN PRN XX WOUND CARE; Start 08/07/17 at 19:30 EDUAR ROO MD Aug 08, 2017 07:22
--- NOTE | 2017-08-08 07:48 | CONS ---
DATE OF ADMISSION: 07/24/2017 DATE OF CONSULTATION: 08/07/2017 ORTHOPEDIC CONSULTATION CHIEF COMPLAINT: Back pain. HISTORY OF PRESENT ILLNESS: This is a 71-year-old female who was admitted to [facility] on 07/24/2017 with a suspected cerebrovascular accident. She has undergone a CT scan of the abdomen/pelvis early on during this admission which identified a fracture of L1. I was asked to see the patient for further evaluation and treatment of her spinal fracture. The patient denies any recent falls, but appears to have significant impairment of cognition at this time. She says that the back pain that began 3 days ago. She denies any previous lumbar surgeries and was unaware of the fracture. PHYSICAL EXAMINATION: NEUROLOGIC: Patient is bedridden and assessment of gait could not be taken. She has no spinal tend erness. The neurovascular structures are intact distally. Her reflexes are absent below the waist. She has weakness of the left leg consistent with a cerebrovascular accident. The right leg functi on appears to be normal. Sensation is intact distally. DIAGNOSIS: Fracture of L1 (age unknown). CONCLUSIONS: The patient has complaints of back pain without radicular component. I have taken the liberty of ordering x-rays of the lumbar spine and an MRI of the lumbar spine pending approval by Josh Hawley. At this point, since she is nonambulatory, I have not ordered any orthotics, however, fur ther comment on management of the fracture will be forthcoming upon completion of the x-rays and MRI scan discussed above. Thank you for the opportunity to participate in the care of this pleasant woman. I will be happy to follow her along with you during and after her hospitalization as desired. If there are any questi ons regarding this consultation, do not hesitate to contact me at my office. Sincerely, Dictated By: EDUAR LEONARDO/ABBY Conf#: [id number] DID#: [id number]
[2017-08-08] MEDS ORDERED: HYDROCORTISONE 100 MG INJ IV SCH (09:00)
[2017-08-08] MEDS: FAMOTIDINE 20 MG INJ IV SCH (10:13)
[2017-08-08] MEDS: BALSAM PERU/CASTOR OIL 60 GM TUBE TOP SCH ×2 (10:14→21:27)
[2017-08-08] MEDS: NYSTATIN 30 GM POWDER BTL TOP SCH ×2 (10:14→21:27)
--- NOTE | 2017-08-08 10:32 | CONS ---
Date/Time of Note Date/Time of Note DATE: 08/08/17 TIME: : Assessment/Plan Assessment/Plan Chief Complaint/Hosp Course 1. Acute Renal Failure , due to ATN and sepsis which has resolved. Patient now has normal renal function. . Labs are pending for today. 2. ALOC /encephalopathy, this has resolved and she is now awake and responsive. She is a little confused. 3. Hypotension resolved 4. E. coli UTI with sepsis on antibiotics . 5. Thrombocytopenia , improving 6. Hypernatremia 7. pulmonary edema , improving on CXR done yesterday . Problems: Consultation Date/Type/Reason Admit Date/Time Jul 24, 2017 at 11:53 Type of Consultation: ORTHOPEDIC SURGERY Referring Provider: PIPER SANTANA MD 24 HR Interval Summary Free Text/Dictation She is awake and responsive. She is disoriented to time and thinks it is 1917. She thinks she is in an infirm[place]roy. Constitutional: no complaints Exam/Review of Systems Vital Signs Vitals Vital Signs Date Time Temp Pulse Resp B/P Pulse Ox O2 Delivery O2 Flow Rate FiO2 08/08/17 08:00 98 08/08/17 07:23 99.2 19 174/73 95 08/08/17 06:11 2.0 08/07/17 20:00 Nasal Cannula 08/04/17 20:20 28 Intake and Output 08/07/17 08/07/17 08/08/17 15:00 23:00 07:00 Intake Total 240 ml 500 ml 920 ml Output Total 1600 ml 250 ml 1000 ml Balance -1360 ml 250 ml -80 ml Exam Constitutional: alert, frail, obese Respiratory: congested cough, diminished breath sounds Cardiovascular: edema, regular rate and rhythm Gastrointestinal: non-tender, soft Extremities: edema Results Result Diagram: 08/07/17 0340 08/07/17 0340 Results 24 hrs Laboratory Tests Test 08/07/17 11:42 08/07/17 17:05 08/07/17 21:06 08/08/17 01:33 Bedside Glucose 112 112 79 80 Test 08/08/17 05:37 08/08/17 08:40 Bedside Glucose 78 87 Medications Medications Current Medications Morphine Sulfate (morphine) 2 mg Q4H PRN IV back pain Last administered on t 10:49; Admin Dose 2 MG; Start 07/24/17 at 17:30 Ondansetron HCl (Zofran Inj) 4 mg Q6H PRN IV NAUSEA AND/OR VOMITING; Start at 19:00 Morphine Sulfate (morphine) 4 mg Q4H PRN IV PAIN LEVEL 7-10 Last administered on 08/03/17 10:05; Admin Dose 4 MG; Start 07/24/17 at 19:00 Diagnostic Test (Pha) (Accu-Chek) 1 ea 02 XX Last administered on 08/08/17 01 :35; Admin Dose 1 EA; Start 07/26/17 at 02:00 Insulin Aspart (Novolog Insulin Pen) NOVOLOG *MILD* ALGORI... Q4 SC Last administered on 08/04/17 17:40; Admin Dose 1 UNIT; Start 07/25/17 at 13:00 Miscellaneous Information 1 ea NOTE XX ; Start 07/25/17 at 10:30 Glucose (Glutose) 15 gm Q15M PRN PO DECREASED GLUCOSE; Start 07/25/17 at 10:30 Glucose (Glutose) 22.5 gm Q15M PRN PO DECREASED GLUCOSE; Start 07/25/17 at 10: 30 Dextrose (D50w Syringe) 25 ml Q15M PRN IV DECREASED GLUCOSE; Start 07/25/17 at 10:30 Dextrose (D50w Syringe) 50 ml Q15M PRN IV DECREASED GLUCOSE; Start 07/25/17 at 10:30 Glucagon (Glucagen) 1 mg Q15M PRN IM DECREASED GLUCOSE; Start 07/25/17 at 10:30 Glucose (Glutose) 15 gm Q15M PRN BUCCAL DECREASED GLUCOSE; Start 07/25/17 at 10 :30 Nystatin (Nystatin Powder) 1 applic BID TOP Last administered on 08/08/17 10: 14; Admin Dose 1 APPLIC; Start 07/25/17 at 13:00 IV Flush (NS 10 ml) 10 ml PRN PRN IV IV PROTOCOL; Start 07/25/17 at 17:30 Acetaminophen (Tylenol Liquid) 650 mg Q6H PRN NGT PAIN AND OR ELEVATED TEMP Last administered on 08/04/17 05:44; Admin Dose 650 MG; Start 07/27/17 at 20:30 Famotidine (Pepcid Iv) 20 mg Q12 IV Last administered on 08/08/17 10:13; Admin Dose 20 MG; Start 08/01/17 at 09:00 Atropine Sulfate 0.5 mg 0.5 mg PRN PRN IV DECREASED HEART RATE Last administered on 08/07/17 18:30; Admin Dose 0.5 MG; Start 08/01/17 at 10:30 Dextrose (D5W) 1,000 ml @ 100 mls/hr Q10H IV Last administered on 08/07/17 21:16; Admin Dose 100 MLS/HR; Start 08/07/17 at 08:30 Hydrocortisone 50 mg 50 mg DAILY IV Last administered on 08/08/17 10:15; Admin Dose 50 MG; Start 08/08/17 at 09:00; Stop 08/09/17 at 08:59 Ceftriaxone Sodium (Rocephin) 50 ml @ 100 mls/hr Q24H IVPB Last administered on 08/07/17 17:08; Admin Dose 100 MLS/HR; Start 08/07/17 at 14:00 Miscellaneous Information (Pending [facility] Order For Wound Care) This patient kuhn... PRN PRN XX WOUND CARE; Start 08/07/17 at 19:30 Lactulose (Enulose) 30 gm Q4 PRN PO CONSTIPATIN; Start 08/08/17 at 08:00 GRACE GRANDE MD Aug 08, 2017 10:32
[2017-08-08 11:09] LABS: BASOPHILS % 0.1 % (0.0-2.0); EOSINOPHILS # 0.3 10^3/ul (0.0-0.5); EOSINOPHILS % 1.5 % (0.0-7.0); HEMOGLOBIN 11.3 g/dl (12.0-16.0); LYMPHOCYTES # 1.8 10^3/ul (0.8-2.9); LYMPHOCYTES % 10.6 % (15.0-51.0); MEAN CORPUSCULAR HEMOGLOBIN 34.3 pg (29.0-33.0); MEAN CORPUSCULAR HGB CONC 33.2 g/dl (32.0-37.0); MEAN CORPUSCULAR VOLUME 103.3 fl (82.0-101.0); MEAN PLATELET VOLUME 12.2 fl (7.4-10.4); MONOCYTE # 1.1 10^3/ul (0.3-0.9); MONOCYTES % 6.4 % (0.0-11.0); NEUTROPHIL # 13.3 10^3/ul (1.6-7.5); NEUTROPHILS % 80.8 % (39.0-77.0); PLATELET COUNT 159 10^3/UL (140-415); RED BLOOD COUNT 3.29 10^6/ul (4.20-5.40); RED CELL DISTRIBUTION WIDTH 15.4 % (11.5-14.5); WHITE BLOOD COUNT 16.5 10^3/ul (4.8-10.8)
[2017-08-08 11:32] LABS: ALBUMIN 2.8 g/dl (3.3-4.9); ALBUMIN/GLOBULIN RATIO 0.9; BILIRUBIN,INDIRECT 0.9 mg/dl (0-1.1); BILIRUBIN,TOTAL 0.9 mg/dl (0.2-1.3); CALCIUM 8.5 mg/dl (8.4-10.2); CREATININE 0.62 mg/dl (0.44-1.00); POTASSIUM 3.3 mmol/L (3.5-5.1); TOTAL PROTEIN 5.9 g/dl (6.1-8.1)
--- NOTE | 2017-08-08 11:54 | CONS ---
Date/Time of Note Date/Time of Note DATE: 08/08/17 TIME: 11:53 Consultation Date/Type/Reason Admit Date/Time Jul 24, 2017 at 11:53 Initial Consult Date 07/25/17 Type of Consultation: pulmonary Referring Provider: PIPER SANTANA MD 24 HR Interval Summary Free Text/Dictation dictated Exam/Review of Systems Vital Signs Vitals Vital Signs Date Time Temp Pulse Resp B/P Pulse Ox O2 Delivery O2 Flow Rate FiO2 08/08/17 08:00 98 08/08/17 07:23 99.2 19 174/73 95 08/08/17 06:11 2.0 08/07/17 20:00 Nasal Cannula 08/04/17 20:20 28 Intake and Output 08/07/17 08/07/17 08/08/17 15:00 23:00 07:00 Intake Total 240 ml 500 ml 920 ml Output Total 1600 ml 250 ml 1000 ml Balance -1360 ml 250 ml -80 ml Results Result Diagram: 08/08/17 1052 08/08/17 1052 Results 24 hrs Laboratory Tests Test 08/07/17 17:05 08/07/17 21:06 08/08/17 01:33 08/08/17 05:37 Bedside Glucose 112 79 80 78 Test 08/08/17 08:40 08/08/17 10:52 Bedside Glucose 87 White Blood Count 16.5 #H Red Blood Count 3.29 #L Hemoglobin 11.3 #L Hematocrit 34.0 L Mean Corpuscular Volume 103.3 H Mean Corpuscular Hemoglobin 34.3 H Mean Corpuscular Hemoglobin Concent 33.2 Red Cell Distribution Width 15.4 H Platelet Count 159 # Mean Platelet Volume 12.2 H Neutrophils % 80.8 H Lymphocytes % 10.6 L Monocytes % 6.4 Eosinophils % 1.5 Basophils % 0.1 Nucleated Red Blood Cells % 0.0 Neutrophils # 13.3 H Lymphocytes # 1.8 Monocytes # 1.1 H Eosinophils # 0.3 Basophils # 0.0 Nucleated Red Blood Cells # 0.0 Sodium Level 147 H Potassium Level 3.3 L Chloride Level 112 H Carbon Dioxide Level 27 Anion Gap 11 # Blood Urea Nitrogen 19 # Creatinine 0.62 Glucose Level 108 Calcium Level 8.5 Total Bilirubin 0.9 Direct Bilirubin 0.00 Indirect Bilirubin 0.9 Aspartate Amino Transf (AST/SGOT) 39 Alanine Aminotransferase (ALT/SGPT) 41 Alkaline Phosphatase 194 H Total Protein 5.9 L Albumin 2.8 L Globulin 3.10 Albumin/Globulin Ratio 0.90 Medications Medications Current Medications Morphine Sulfate (morphine) 2 mg Q4H PRN IV back pain Last administered on 10:49; Admin Dose 2 MG; Start 07/24/17 at 17:30 Ondansetron HCl (Zofran Inj) 4 mg Q6H PRN IV NAUSEA AND/OR VOMITING; Start at 19:00 Morphine Sulfate (morphine) 4 mg Q4H PRN IV PAIN LEVEL 7-10 Last administered on 08/03/17 10:05; Admin Dose 4 MG; Start 07/24/17 at 19:00 Diagnostic Test (Pha) (Accu-Chek) 1 ea 02 XX Last administered on 08/08/17 01 :35; Admin Dose 1 EA; Start 07/26/17 at 02:00 Insulin Aspart (Novolog Insulin Pen) NOVOLOG *MILD* ALGORI... Q4 SC Last administered on 08/04/17 17:40; Admin Dose 1 UNIT; Start 07/25/17 at 13:00 Miscellaneous Information 1 ea NOTE XX ; Start 07/25/17 at 10:30 Glucose (Glutose) 15 gm Q15M PRN PO DECREASED GLUCOSE; Start 07/25/17 at 10:30 Glucose (Glutose) 22.5 gm Q15M PRN PO DECREASED GLUCOSE; Start 07/25/17 at 10: 30 Dextrose (D50w Syringe) 25 ml Q15M PRN IV DECREASED GLUCOSE; Start 07/25/17 at 10:30 Dextrose (D50w Syringe) 50 ml Q15M PRN IV DECREASED GLUCOSE; Start 07/25/17 at 10:30 Glucagon (Glucagen) 1 mg Q15M PRN IM DECREASED GLUCOSE; Start 07/25/17 at 10:30 Glucose (Glutose) 15 gm Q15M PRN BUCCAL DECREASED GLUCOSE; Start 07/25/17 at 10 :30 Nystatin (Nystatin Powder) 1 applic BID TOP Last administered on 08/08/17 10: 14; Admin Dose 1 APPLIC; Start 07/25/17 at 13:00 IV Flush (NS 10 ml) 10 ml PRN PRN IV IV PROTOCOL; Start 07/25/17 at 17:30 Acetaminophen (Tylenol Liquid) 650 mg Q6H PRN NGT PAIN AND OR ELEVATED TEMP Last administered on 08/04/17 05:44; Admin Dose 650 MG; Start 07/27/17 at 20:30 Famotidine (Pepcid Iv) 20 mg Q12 IV Last administered on 08/08/17 10:13; Admin Dose 20 MG; Start 08/01/17 at 09:00 Atropine Sulfate 0.5 mg 0.5 mg PRN PRN IV DECREASED HEART RATE Last administered on 08/07/17 18:30; Admin Dose 0.5 MG; Start 08/01/17 at 10:30 Dextrose (D5W) 1,000 ml @ 100 mls/hr Q10H IV Last administered on 08/07/17 21:16; Admin Dose 100 MLS/HR; Start 08/07/17 at 08:30 Hydrocortisone 50 mg 50 mg DAILY IV Last administered on 08/08/17 10:15; Admin Dose 50 MG; Start 08/08/17 at 09:00; Stop 08/09/17 at 08:59 Ceftriaxone Sodium (Rocephin) 50 ml @ 100 mls/hr Q24H IVPB Last administered on 08/07/17 17:08; Admin Dose 100 MLS/HR; Start 08/07/17 at 14:00 Miscellaneous Information (Pending Santyl Order For Wound Care) This patient kuhn... PRN PRN XX WOUND CARE; Start 08/07/17 at 19:30 Lactulose (Enulose) 30 gm Q4 PRN PO CONSTIPATIN; Start 08/08/17 at 08:00 IVETTE SINGER Aug 08, 2017 11:54
[2017-08-08] MEDS: LACTULOSE 30ML CUP PO PRN (12:07)
--- NOTE | 2017-08-08 12:23 | PN ---
DATE: 08/08/2017 PULMONARY PROGRESS NOTE The patient's condition is stable. The patient has been transferred out of ICU to the medical floor . She denies any shortness of breath, chest pain. PHYSICAL EXAMINATION: GENERAL: Elderly woman currently in no distress, awake and alert. VITAL SIGNS: Temperature is 98 degrees Fahrenheit, heart rate of 75 per minute, blood pressure is 1 45/62, O2 saturation 95%. HEENT: Supple neck. JVD difficult to see because of short neck. No thyromegaly. No neck bruits. Patient has good dentition. Pupils are mid-size, reactive to light bilaterally. CHEST: Clear to auscultation. HEART: S1, S2 audible. No murmurs, regular rhythm. ABDOMEN: Soft, nondistended, protuberant. Bowel sounds audible. EXTREMITIES: Decreased lower extremity edema bilaterally. CENTRAL NERVOUS SYSTEM: No focal deficit. LABORATORY DATA: Today, white count is 16.5, hemoglobin 11.3, platelet count of 159. Sodium 147, p otassium 3.3, chloride 112, bicarb 27, glucose 108, BUN 19, creatinine 0.6. MEDICATIONS: The patient is currently on: 1. Rocephin 1 gram IV daily. 2. Potassium on a p.r.n. basis. 3. Acetaminophen on a p.r.n. basis. 4. Pepcid 20 mg IV q. 12 hours. 5. Solu-Cortef 50 mg IV daily. 6. Morphine on a p.r.n. basis. 7. Sliding scale insulin. ASSESSMENT AND PLAN: 1. Patient admitted with respiratory failure due to severe Escherichia coli sepsis with marked over all clinical improvement. 2. Mild anemia with improving thrombocytopenia. RECOMMENDATIONS: Continue current supportive care. Consider discharge. Dictated By: IVETTE VALDEZ/ABBY Conf#: [id number] DID#: [id number]
--- NOTE | 2017-08-08 13:23 | RADRPT ---
Vent Rate: 46 bpm RR Interval: 0 msec NM Interval: 200 msec QRS Duration: 108 msec QT Interval: 526 msec QTC Interval: 460 msec P-R-T [place]: 36 - 34 - 39 degrees Marked sinus bradycardia Abnormal ECG Electronically Signed By: Hugo Lawler [id number]
--- NOTE | 2017-08-08 13:24 | RADRPT ---
Vent Rate: 50 bpm RR Interval: 0 msec PA Interval: 212 msec QRS Duration: 106 msec QT Interval: 510 msec QTC Interval: 464 msec P-R-T [place]: 40 - 3 - 25 degrees Sinus bradycardia with 1st degree AV block Inverted T in V3 Abnormal ECG Electronically Signed By: Hugo Lawler [id number]
[2017-08-08] MEDS: CEFTRIAXONE 1 GM/50 ML (PMX) 50 ML IVPB SCH (13:39)
--- NOTE | 2017-08-08 14:11 | CONS ---
Date/Time of Note Date/Time of Note DATE: 08/08/17 TIME: 14:09 Consult Date/Type/Reason Admit Date/Time Jul 24, 2017 at 11:53 Initial Consult Date 07/25/17 Type of Consultation: ID Ordering Provider: PIPER SANTANA MD Objective Vital Signs Date Time Temp Pulse Resp B/P Pulse Ox O2 Delivery O2 Flow Rate FiO2 08/08/17 12:00 97 08/08/17 11:50 98.2 18 141/63 98 08/08/17 06:11 2.0 08/07/17 20:00 Nasal Cannula 08/04/17 20:20 28 Intake and Output 08/07/17 08/07/17 08/08/17 15:00 23:00 07:00 Intake Total 240 ml 500 ml 920 ml Output Total 1600 ml 250 ml 1000 ml Balance -1360 ml 250 ml -80 ml Results/Medications Result Diagram: 08/08/17 1052 08/08/17 1052 Results 24 hrs Laboratory Tests Test 08/07/17 17:05 08/07/17 21:06 08/08/17 01:33 08/08/17 05:37 Bedside Glucose 112 79 80 78 Test 08/08/17 08:40 08/08/17 10:52 08/08/17 12:50 Bedside Glucose 87 127 White Blood Count 16.5 #H Red Blood Count 3.29 #L Hemoglobin 11.3 #L Hematocrit 34.0 L Mean Corpuscular Volume 103.3 H Mean Corpuscular Hemoglobin 34.3 H Mean Corpuscular Hemoglobin Concent 33.2 Red Cell Distribution Width 15.4 H Platelet Count 159 # Mean Platelet Volume 12.2 H Neutrophils % 80.8 H Lymphocytes % 10.6 L Monocytes % 6.4 Eosinophils % 1.5 Basophils % 0.1 Nucleated Red Blood Cells % 0.0 Neutrophils # 13.3 H Lymphocytes # 1.8 Monocytes # 1.1 H Eosinophils # 0.3 Basophils # 0.0 Nucleated Red Blood Cells # 0.0 Sodium Level 147 H Potassium Level 3.3 L Chloride Level 112 H Carbon Dioxide Level 27 Anion Gap 11 # Blood Urea Nitrogen 19 # Creatinine 0.62 Glucose Level 108 Calcium Level 8.5 Total Bilirubin 0.9 Direct Bilirubin 0.00 Indirect Bilirubin 0.9 Aspartate Amino Transf (AST/SGOT) 39 Alanine Aminotransferase (ALT/SGPT) 41 Alkaline Phosphatase 194 H Total Protein 5.9 L Albumin 2.8 L Globulin 3.10 Albumin/Globulin Ratio 0.90 Medications Current Medications Morphine Sulfate (morphine) 2 mg Q4H PRN IV back pain Last administered on 10:49; Admin Dose 2 MG; Start 07/24/17 at 17:30 Ondansetron HCl (Zofran Inj) 4 mg Q6H PRN IV NAUSEA AND/OR VOMITING; Start at 19:00 Morphine Sulfate (morphine) 4 mg Q4H PRN IV PAIN LEVEL 7-10 Last administered on 08/03/17 10:05; Admin Dose 4 MG; Start 07/24/17 at 19:00 Diagnostic Test (Pha) (Accu-Chek) 1 ea 02 XX Last administered on 08/08/17 01 :35; Admin Dose 1 EA; Start 07/26/17 at 02:00 Insulin Aspart (Novolog Insulin Pen) NOVOLOG *MILD* ALGORI... Q4 SC Last administered on 08/04/17 17:40; Admin Dose 1 UNIT; Start 07/25/17 at 13:00 Miscellaneous Information 1 ea NOTE XX ; Start 07/25/17 at 10:30 Glucose (Glutose) 15 gm Q15M PRN PO DECREASED GLUCOSE; Start 07/25/17 at 10:30 Glucose (Glutose) 22.5 gm Q15M PRN PO DECREASED GLUCOSE; Start 07/25/17 at 10: 30 Dextrose (D50w Syringe) 25 ml Q15M PRN IV DECREASED GLUCOSE; Start 07/25/17 at 10:30 Dextrose (D50w Syringe) 50 ml Q15M PRN IV DECREASED GLUCOSE; Start 07/25/17 at 10:30 Glucagon (Glucagen) 1 mg Q15M PRN IM DECREASED GLUCOSE; Start 07/25/17 at 10:30 Glucose (Glutose) 15 gm Q15M PRN BUCCAL DECREASED GLUCOSE; Start 07/25/17 at 10 :30 Nystatin (Nystatin Powder) 1 applic BID TOP Last administered on 08/08/17 10: 14; Admin Dose 1 APPLIC; Start 07/25/17 at 13:00 IV Flush (NS 10 ml) 10 ml PRN PRN IV IV PROTOCOL; Start 07/25/17 at 17:30 Acetaminophen (Tylenol Liquid) 650 mg Q6H PRN NGT PAIN AND OR ELEVATED TEMP Last administered on 08/04/17 05:44; Admin Dose 650 MG; Start 07/27/17 at 20:30 Famotidine (Pepcid Iv) 20 mg Q12 IV Last administered on 08/08/17 10:13; Admin Dose 20 MG; Start 08/01/17 at 09:00 Atropine Sulfate 0.5 mg 0.5 mg PRN PRN IV DECREASED HEART RATE Last administered on 08/07/17 18:30; Admin Dose 0.5 MG; Start 08/01/17 at 10:30 Dextrose (D5W) 1,000 ml @ 100 mls/hr Q10H IV Last administered on 08/07/17 21:16; Admin Dose 100 MLS/HR; Start 08/07/17 at 08:30 Hydrocortisone 50 mg 50 mg DAILY IV Last administered on 08/08/17 10:15; Admin Dose 50 MG; Start 08/08/17 at 09:00; Stop 08/09/17 at 08:59 Ceftriaxone Sodium (Rocephin) 50 ml @ 100 mls/hr Q24H IVPB Last administered on 08/08/17 13:39; Admin Dose 100 MLS/HR; Start 08/07/17 at 14:00 Miscellaneous Information (Pending [facility] Order For Wound Care) This patient kuhn... PRN PRN XX WOUND CARE; Start 08/07/17 at 19:30 Lactulose (Enulose) 30 gm Q4 PRN PO CONSTIPATIN Last administered on 12:07; Admin Dose 30 GM; Start 08/08/17 at 08:00 Assessment/Plan Chief Complaint/Hosp Course SUBJECTIVE: No events overnight. Tx to tele, sleeping, looks comfortable, afebrile . ANTIMICROBIALS: Rocephin INDWELLINGS: [place] catheter, PICC line. PHYSICAL EXAMINATION: GENERAL: Well-developed, obese, elderly woman who is in no distress. HEENT: Head atraumatic, normocephalic. Sclerae anicteric. Buccal mucosa dry. NECK: Supple. CHEST: Rise symmetrical. Breath sounds diminished to bases. HEART: S1, S2. ABDOMEN: Soft, bowel tones present. EXTREMITIES: Without cyanosis. ASSESSMENT: 1. Status post septic shock. 2. Status post Escherichia coli extended-spectrum beta-lactamase with bacteremia. 3. Resolving left lower extremity cellulitis. 4. Sinus bradycardia. 5. Status post acute kidney failure, resolved. 6. Back pain/L1 fx PLAN: Stable, completing abx, pending spinal MRI, continue present care. Follow recommendations of consultants. Problems: ERICKA LEGER NP Aug 08, 2017 14:11
[2017-08-08] MEDS ORDERED: POTASSIUM CHLORIDE 30 MEQ in SOD CHLORIDE 0.9% 150 ML IVPB ONE (16:00)
--- NOTE | 2017-08-08 19:47 | PN ---
Date/Time of Note Date/Time of Note DATE: 08/08/17 TIME: 19:36 Assessment/Plan VTE Prophylaxis VTE Prophylaxis Intervention: SCD's Lines/Catheters IV Catheter Type (from Nrsg): PICC Line Central line still needed: No Urinary Cath still in place: Yes Reason Cath still needed: urinary retention Assessment/Plan Assessment/Plan 1. Encephalopathy improving 2. Hypoxemic and hypercapnic respiratory failure 3. Status post gram-negative septic shock 4. Thrombocytopenia. 5. Renal insufficiency likely ATN injury on top of chronic renal insufficiency. 6. Sinus Bradycardia 7. s/p Fluid overload 8.s s/p hypokalemia Plan 2. Continue broad-spectrum antibiotic coverage, 5. off dopamine if remasin in the 40s, will avoid PPM and outptient event recorder 7. s/p atropine for bradycardia no pacer necessary for nowbut probable SSS 8.outptient loop recorder vs event recorder Subjective 24 Hr Interval Summary Free Text/Dictation The pateint with no cahnge Exam/Review of Systems Vital Signs Vitals Vital Signs Date Time Temp Pulse Resp B/P Pulse Ox O2 Delivery O2 Flow Rate FiO2 08/08/17 19:19 97.9 74 18 150/65 97 08/08/17 06:11 2.0 08/07/17 20:00 Nasal Cannula 08/04/17 20:20 28 Intake and Output 08/07/17 08/07/17 08/08/17 15:00 23:00 07:00 Intake Total 240 ml 500 ml 920 ml Output Total 1600 ml 250 ml 1000 ml Balance -1360 ml 250 ml -80 ml Results Result Diagram: 08/08/17 1052 08/08/17 1052 Results 24 hrs Laboratory Tests Test 08/07/17 21:06 08/08/17 01:33 08/08/17 05:37 08/08/17 08:40 Bedside Glucose 79 80 78 87 Test 08/08/17 10:52 08/08/17 12:50 08/08/17 17:08 White Blood Count 16.5 #H Red Blood Count 3.29 #L Hemoglobin 11.3 #L Hematocrit 34.0 L Mean Corpuscular Volume 103.3 H Mean Corpuscular Hemoglobin 34.3 H Mean Corpuscular Hemoglobin Concent 33.2 Red Cell Distribution Width 15.4 H Platelet Count 159 # Mean Platelet Volume 12.2 H Neutrophils % 80.8 H Lymphocytes % 10.6 L Monocytes % 6.4 Eosinophils % 1.5 Basophils % 0.1 Nucleated Red Blood Cells % 0.0 Neutrophils # 13.3 H Lymphocytes # 1.8 Monocytes # 1.1 H Eosinophils # 0.3 Basophils # 0.0 Nucleated Red Blood Cells # 0.0 Sodium Level 147 H Potassium Level 3.3 L Chloride Level 112 H Carbon Dioxide Level 27 Anion Gap 11 # Blood Urea Nitrogen 19 # Creatinine 0.62 Glucose Level 108 Calcium Level 8.5 Total Bilirubin 0.9 Direct Bilirubin 0.00 Indirect Bilirubin 0.9 Aspartate Amino Transf (AST/SGOT) 39 Alanine Aminotransferase (ALT/SGPT) 41 Alkaline Phosphatase 194 H Total Protein 5.9 L Albumin 2.8 L Globulin 3.10 Albumin/Globulin Ratio 0.90 Bedside Glucose 127 137 Medications Medications Current Medications Morphine Sulfate (morphine) 2 mg Q4H PRN IV back pain Last administered on 10:49; Admin Dose 2 MG; Start 07/24/17 at 17:30 Ondansetron HCl (Zofran Inj) 4 mg Q6H PRN IV NAUSEA AND/OR VOMITING; Start at 19:00 Morphine Sulfate (morphine) 4 mg Q4H PRN IV PAIN LEVEL 7-10 Last administered on 08/03/17 10:05; Admin Dose 4 MG; Start 07/24/17 at 19:00 Diagnostic Test (Pha) (Accu-Chek) 1 ea 02 XX Last administered on 08/08/17 01 :35; Admin Dose 1 EA; Start 07/26/17 at 02:00 Insulin Aspart (Novolog Insulin Pen) NOVOLOG *MILD* ALGORI... Q4 SC Last administered on 08/04/17 17:40; Admin Dose 1 UNIT; Start 07/25/17 at 13:00 Miscellaneous Information 1 ea NOTE XX ; Start 07/25/17 at 10:30 Glucose (Glutose) 15 gm Q15M PRN PO DECREASED GLUCOSE; Start 07/25/17 at 10:30 Glucose (Glutose) 22.5 gm Q15M PRN PO DECREASED GLUCOSE; Start 07/25/17 at 10: 30 Dextrose (D50w Syringe) 25 ml Q15M PRN IV DECREASED GLUCOSE; Start 07/25/17 at 10:30 Dextrose (D50w Syringe) 50 ml Q15M PRN IV DECREASED GLUCOSE; Start 07/25/17 at 10:30 Glucagon (Glucagen) 1 mg Q15M PRN IM DECREASED GLUCOSE; Start 07/25/17 at 10:30 Glucose (Glutose) 15 gm Q15M PRN BUCCAL DECREASED GLUCOSE; Start 07/25/17 at 10 :30 Nystatin (Nystatin Powder) 1 applic BID TOP Last administered on 08/08/17 10: 14; Admin Dose 1 APPLIC; Start 07/25/17 at 13:00 IV Flush (NS 10 ml) 10 ml PRN PRN IV IV PROTOCOL; Start 07/25/17 at 17:30 Acetaminophen (Tylenol Liquid) 650 mg Q6H PRN NGT PAIN AND OR ELEVATED TEMP Last administered on 08/04/17 05:44; Admin Dose 650 MG; Start 07/27/17 at 20:30 Atropine Sulfate 0.5 mg 0.5 mg PRN PRN IV DECREASED HEART RATE Last administered on 08/07/17 18:30; Admin Dose 0.5 MG; Start 08/01/17 at 10:30 Dextrose (D5W) 1,000 ml @ 100 mls/hr Q10H IV Last administered on 08/07/17 21:16; Admin Dose 100 MLS/HR; Start 08/07/17 at 08:30 Hydrocortisone 50 mg 50 mg DAILY IV Last administered on 08/08/17 10:15; Admin Dose 50 MG; Start 08/08/17 at 09:00; Stop 08/09/17 at 08:59 Ceftriaxone Sodium (Rocephin) 50 ml @ 100 mls/hr Q24H IVPB Last administered on 08/08/17 13:39; Admin Dose 100 MLS/HR; Start 08/07/17 at 14:00 Miscellaneous Information (Pending Santyl Order For Wound Care) This patient kuhn... PRN PRN XX WOUND CARE; Start 08/07/17 at 19:30 Lactulose (Enulose) 30 gm Q4 PRN PO CONSTIPATIN Last administered on 12:07; Admin Dose 30 GM; Start 08/08/17 at 08:00 Pantoprazole (Protonix Tab) 40 mg DAILY@06 PO ; Start 08/09/17 at 06:00 JENNIE LEY MD Aug 08, 2017 19:47
--- NOTE | 2017-08-08 21:08 | RADRPT ---
PROCEDURE: 1 view lumbar spine x-ray. CLINICAL INDICATION: Back pain. TECHNIQUE: Single frontal view. Limited. COMPARISON: None. FINDINGS: This is a limited study as only a single frontal view was obtained. There are degenerative changes with disc space narrowing and osteophytes throughout. IMPRESSION: 1. Limited study as only a single frontal view was obtained. 2. Degenerative changes. RPTAT: QQ .Geoff Wood MD, MD Date Time Electronically viewed and signed by .Geoff Wood MD, on 08/08/2017 21:07 .R/
[2017-08-09] VITALS (12 sets, daily range): BP systolic 119–150; BP diastolic 58–78; PULSE 58–84; RESP 17–20
[2017-08-09] MEDS: DEXTROSE 5% 1,000 ML IV SCH (00:24)
[2017-08-09] MEDS: INSULIN ASPART [NOVOLOG] 3 ML PEN SC SCH ×3 (01:00→08:27)
[2017-08-09] MEDS: ACCU-CHEK XX SCH (02:00)
[2017-08-09] MEDS: PANTOPRAZOLE (EC) 40 MG TAB PO SCH (05:39)
[2017-08-09] MEDS: morphine 4 MG/ML VIAL IV PRN (05:39)
[2017-08-09 06:12] LABS: ABNORMAL IP MESSAGE 1; BASOPHILS % 0.1 % (0.0-2.0); EOSINOPHILS # 0.4 10^3/ul (0.0-0.5); EOSINOPHILS % 3.3 % (0.0-7.0); HEMATOCRIT 31.5 % (37.0-47.0); HEMOGLOBIN 10.2 g/dl (12.0-16.0); LYMPHOCYTES # 1.3 10^3/ul (0.8-2.9); LYMPHOCYTES % 11.8 % (15.0-51.0); MEAN CORPUSCULAR HEMOGLOBIN 33.2 pg (29.0-33.0); MEAN CORPUSCULAR HGB CONC 32.4 g/dl (32.0-37.0); MEAN CORPUSCULAR VOLUME 102.6 fl (82.0-101.0); MEAN PLATELET VOLUME 12.2 fl (7.4-10.4); MONOCYTE # 0.9 10^3/ul (0.3-0.9); MONOCYTES % 7.8 % (0.0-11.0); NEUTROPHIL # 8.5 10^3/ul (1.6-7.5); NEUTROPHILS % 76.6 % (39.0-77.0); PLATELET COUNT 98 10^3/UL (140-415); RED BLOOD COUNT 3.07 10^6/ul (4.20-5.40); RED CELL DISTRIBUTION WIDTH 15.5 % (11.5-14.5); WHITE BLOOD COUNT 11.1 10^3/ul (4.8-10.8)
[2017-08-09 06:20] LABS: POSITIVE DIFF @See below
[2017-08-09 06:30] LABS: ALBUMIN 2.2 g/dl (3.3-4.9); ALBUMIN/GLOBULIN RATIO 0.75; BILIRUBIN,INDIRECT 0.8 mg/dl (0-1.1); BILIRUBIN,TOTAL 0.8 mg/dl (0.2-1.3); CALCIUM 8.3 mg/dl (8.4-10.2); CREATININE 0.53 mg/dl (0.44-1.00); TOTAL PROTEIN 5.1 g/dl (6.1-8.1)
[2017-08-09 06:49] LABS: POTASSIUM 2.9 mmol/L (3.5-5.1)
--- NOTE | 2017-08-09 07:03 | CONS ---
Date/Time of Note Date/Time of Note DATE: 08/09/17 TIME: 07:01 Assessment/Plan Assessment/Plan Chief Complaint/Hosp Course Patient is a 71-year-old female who was admitted to [facility] on July 24, 2017 with suspicion of a stroke. She has had multiple studies including a CT scan of the abdomen/pelvis which reportedly demonstrates a fracture of L1. I have taken the liberty of ordering x-rays and MRI of the lumbar spine pending approval by Dr. SANTANA a complete consultation dictation will be forthcoming through the dictation system. Thank you for the opportunity of participating in the care of this pleasant woman. . Problems: Consultation Date/Type/Reason Admit Date/Time Jul 24, 2017 at 11:53 Initial Consult Date 08/07/17 Type of Consultation: ID Referring Provider: PIPER SANTANA MD 24 HR Interval Summary Free Text/Dictation Patient attempted an MRI of the lumbar spine yesterday but was unable to complete the study. Similarly, she was unable to tolerate 2 views of the lumbar spine, and only a single AP view was obtained which was nondiagnostic. Her examination is unchanged, and neurovascular structures are intact distally.. At this point, I am unable to provide any additional therapeutic recommendations until she is able to tolerate x-rays and an MRI scan. Thank you for the opportunity of participating in the care of this pleasant woman. I will be happy to see her again upon request. Exam/Review of Systems Vital Signs Vitals Vital Signs Date Time Temp Pulse Resp B/P Pulse Ox O2 Delivery O2 Flow Rate FiO2 08/09/17 04:46 99.1 81 18 133/59 93 08/08/17 20:00 Nasal Cannula 2.0 Intake and Output 08/08/17 08/08/17 08/09/17 15:00 23:00 07:00 Intake Total 50 ml 1310 ml Output Total 500 ml Balance 50 ml 810 ml Results Result Diagram: 08/09/17 0553 08/09/17 0553 Results 24 hrs Laboratory Tests Test 08/08/17 08:40 08/08/17 10:52 08/08/17 12:50 08/08/17 17:08 Bedside Glucose 87 127 137 White Blood Count 16.5 #H Red Blood Count 3.29 #L Hemoglobin 11.3 #L Hematocrit 34.0 L Mean Corpuscular Volume 103.3 H Mean Corpuscular Hemoglobin 34.3 H Mean Corpuscular Hemoglobin Concent 33.2 Red Cell Distribution Width 15.4 H Platelet Count 159 # Mean Platelet Volume 12.2 H Neutrophils % 80.8 H Lymphocytes % 10.6 L Monocytes % 6.4 Eosinophils % 1.5 Basophils % 0.1 Nucleated Red Blood Cells % 0.0 Neutrophils # 13.3 H Lymphocytes # 1.8 Monocytes # 1.1 H Eosinophils # 0.3 Basophils # 0.0 Nucleated Red Blood Cells # 0.0 Sodium Level 147 H Potassium Level 3.3 L Chloride Level 112 H Carbon Dioxide Level 27 Anion Gap 11 # Blood Urea Nitrogen 19 # Creatinine 0.62 Glucose Level 108 Calcium Level 8.5 Total Bilirubin 0.9 Direct Bilirubin 0.00 Indirect Bilirubin 0.9 Aspartate Amino Transf (AST/SGOT) 39 Alanine Aminotransferase (ALT/SGPT) 41 Alkaline Phosphatase 194 H Total Protein 5.9 L Albumin 2.8 L Globulin 3.10 Albumin/Globulin Ratio 0.90 Test 08/08/17 21:25 08/09/17 00:31 08/09/17 05:46 08/09/17 05:53 Bedside Glucose 81 96 95 White Blood Count 11.1 #H Red Blood Count 3.07 L Hemoglobin 10.2 L Hematocrit 31.5 L Mean Corpuscular Volume 102.6 H Mean Corpuscular Hemoglobin 33.2 H Mean Corpuscular Hemoglobin Concent 32.4 Red Cell Distribution Width 15.5 H Platelet Count 98 #L Mean Platelet Volume 12.2 H Neutrophils % 76.6 Lymphocytes % 11.8 L Monocytes % 7.8 Eosinophils % 3.3 Basophils % 0.1 Nucleated Red Blood Cells % 0.0 Neutrophils # 8.5 H Lymphocytes # 1.3 Monocytes # 0.9 Eosinophils # 0.4 Basophils # 0.0 Nucleated Red Blood Cells # 0.0 Sodium Level 144 Potassium Level 2.9 *L Chloride Level 110 Carbon Dioxide Level 31 Anion Gap 6 L Blood Urea Nitrogen 14 Creatinine 0.53 Glucose Level 90 Calcium Level 8.3 L Total Bilirubin 0.8 Direct Bilirubin 0.00 Indirect Bilirubin 0.8 Aspartate Amino Transf (AST/SGOT) 29 Alanine Aminotransferase (ALT/SGPT) 36 Alkaline Phosphatase 148 H Total Protein 5.1 L Albumin 2.2 L Globulin 2.90 Albumin/Globulin Ratio 0.75 Medications Medications Current Medications Morphine Sulfate (morphine) 2 mg Q4H PRN IV back pain Last administered on 10:49; Admin Dose 2 MG; Start 07/24/17 at 17:30 Ondansetron HCl (Zofran Inj) 4 mg Q6H PRN IV NAUSEA AND/OR VOMITING; Start at 19:00 Morphine Sulfate (morphine) 4 mg Q4H PRN IV PAIN LEVEL 7-10 Last administered on 08/09/17 05:39; Admin Dose 4 MG; Start 07/24/17 at 19:00 Diagnostic Test (Pha) (Accu-Chek) 1 ea 02 XX Last administered on 08/08/17 01 :35; Admin Dose 1 EA; Start 07/26/17 at 02:00 Insulin Aspart (Novolog Insulin Pen) NOVOLOG *MILD* ALGORI... Q4 SC Last administered on 08/04/17 17:40; Admin Dose 1 UNIT; Start 07/25/17 at 13:00 Miscellaneous Information 1 ea NOTE XX ; Start 07/25/17 at 10:30 Glucose (Glutose) 15 gm Q15M PRN PO DECREASED GLUCOSE; Start 07/25/17 at 10:30 Glucose (Glutose) 22.5 gm Q15M PRN PO DECREASED GLUCOSE; Start 07/25/17 at 10: 30 Dextrose (D50w Syringe) 25 ml Q15M PRN IV DECREASED GLUCOSE; Start 07/25/17 at 10:30 Dextrose (D50w Syringe) 50 ml Q15M PRN IV DECREASED GLUCOSE; Start 07/25/17 at 10:30 Glucagon (Glucagen) 1 mg Q15M PRN IM DECREASED GLUCOSE; Start 07/25/17 at 10:30 Glucose (Glutose) 15 gm Q15M PRN BUCCAL DECREASED GLUCOSE; Start 07/25/17 at 10 :30 Nystatin (Nystatin Powder) 1 applic BID TOP Last administered on 08/08/17 21: 27; Admin Dose 1 APPLIC; Start 07/25/17 at 13:00 IV Flush (NS 10 ml) 10 ml PRN PRN IV IV PROTOCOL; Start 07/25/17 at 17:30 Acetaminophen (Tylenol Liquid) 650 mg Q6H PRN NGT PAIN AND OR ELEVATED TEMP Last administered on 08/04/17 05:44; Admin Dose 650 MG; Start 07/27/17 at 20:30 Atropine Sulfate 0.5 mg 0.5 mg PRN PRN IV DECREASED HEART RATE Last administered on 08/07/17 18:30; Admin Dose 0.5 MG; Start 08/01/17 at 10:30 Dextrose (D5W) 1,000 ml @ 100 mls/hr Q10H IV Last administered on 08/09/17 00:24; Admin Dose 100 MLS/HR; Start 08/07/17 at 08:30 Hydrocortisone 50 mg 50 mg DAILY IV Last administered on 08/08/17 10:15; Admin Dose 50 MG; Start 08/08/17 at 09:00; Stop 08/09/17 at 08:59 Ceftriaxone Sodium (Rocephin) 50 ml @ 100 mls/hr Q24H IVPB Last administered on 08/08/17 13:39; Admin Dose 100 MLS/HR; Start 08/07/17 at 14:00 Miscellaneous Information [facility] This patient kuhn... PRN PRN XX WOUND CARE; Start 08/07/17 at 19:30 Lactulose (Enulose) 30 gm Q4 PRN PO CONSTIPATIN Last administered on 12:07; Admin Dose 30 GM; Start 08/08/17 at 08:00 Pantoprazole (Protonix Tab) 40 mg DAILY@06 PO Last administered on 08/09/17 05:39; Admin Dose 40 MG; Start 08/09/17 at 06:00 EDUAR ORO MD Aug 09, 2017 07:03
[2017-08-09] MEDS: NYSTATIN 30 GM POWDER BTL TOP SCH ×2 (08:28→22:00)
[2017-08-09] MEDS: BALSAM PERU/CASTOR OIL 60 GM TUBE TOP SCH ×3 (08:28→22:00)
[2017-08-09] MEDS ORDERED: POTASSIUM CHLORIDE 20 MEQ POWDER FOR ORAL SOLN PO PRN (08:30)
--- NOTE | 2017-08-09 08:39 | PN ---
Date/Time of Note Date/Time of Note DATE: 08/09/17 TIME: 08:33 Assessment/Plan VTE Prophylaxis VTE Prophylaxis Intervention: anti-embolic stocking Lines/Catheters IV Catheter Type (from Nrsg): PICC Line Urinary Cath still in place: Yes Subjective 24 Hr Interval Summary Free Text/Dictation sepsis, change in mental status...resolved arf, improving to baseline hypokalemia, rx underway back pain...refused mri, may try bone scan, or repeat ct of spine??will discuss w ortho, contineu attempts at mobilization on exam alert, speech sl slurry as before, content seems appropriate. swallowing current diet ok. no complaints except pain in back. very difficult to move without pain. diabetes not in evidence, will dc protocol. mouth dry, no tjhrush. hr better now, 56 lowest overnight lungs clear, abd obese, soft, ext less edematous, no rash HIDA negative plan is to try to evaluate back pain if able. continue attermpts to increase mobility. will need superintendent terminal rehab program from all appearances at this point Musculoskeletal: back pain Exam/Review of Systems Vital Signs Vitals Vital Signs Date Time Temp Pulse Resp B/P Pulse Ox O2 Delivery O2 Flow Rate FiO2 08/09/17 08:13 63 08/09/17 07:56 98.3 18 132/77 97 08/08/17 20:00 Nasal Cannula 2.0 Intake and Output 08/08/17 08/08/17 08/09/17 15:00 23:00 07:00 Intake Total 50 ml 1310 ml 400 ml Output Total 500 ml 900 ml Balance 50 ml 810 ml -500 ml Results Result Diagram: 08/09/17 0553 08/09/17 0553 Results 24 hrs Laboratory Tests Test 08/08/17 08:40 08/08/17 10:52 08/08/17 12:50 08/08/17 17:08 Bedside Glucose 87 127 137 White Blood Count 16.5 #H Red Blood Count 3.29 #L Hemoglobin 11.3 #L Hematocrit 34.0 L Mean Corpuscular Volume 103.3 H Mean Corpuscular Hemoglobin 34.3 H Mean Corpuscular Hemoglobin Concent 33.2 Red Cell Distribution Width 15.4 H Platelet Count 159 # Mean Platelet Volume 12.2 H Neutrophils % 80.8 H Lymphocytes % 10.6 L Monocytes % 6.4 Eosinophils % 1.5 Basophils % 0.1 Nucleated Red Blood Cells % 0.0 Neutrophils # 13.3 H Lymphocytes # 1.8 Monocytes # 1.1 H Eosinophils # 0.3 Basophils # 0.0 Nucleated Red Blood Cells # 0.0 Sodium Level 147 H Potassium Level 3.3 L Chloride Level 112 H Carbon Dioxide Level 27 Anion Gap 11 # Blood Urea Nitrogen 19 # Creatinine 0.62 Glucose Level 108 Calcium Level 8.5 Total Bilirubin 0.9 Direct Bilirubin 0.00 Indirect Bilirubin 0.9 Aspartate Amino Transf (AST/SGOT) 39 Alanine Aminotransferase (ALT/SGPT) 41 Alkaline Phosphatase 194 H Total Protein 5.9 L Albumin 2.8 L Globulin 3.10 Albumin/Globulin Ratio 0.90 Test 08/08/17 21:25 08/09/17 00:31 08/09/17 05:46 08/09/17 05:53 Bedside Glucose 81 96 95 White Blood Count 11.1 #H Red Blood Count 3.07 L Hemoglobin 10.2 L Hematocrit 31.5 L Mean Corpuscular Volume 102.6 H Mean Corpuscular Hemoglobin 33.2 H Mean Corpuscular Hemoglobin Concent 32.4 Red Cell Distribution Width 15.5 H Platelet Count 98 #L Mean Platelet Volume 12.2 H Neutrophils % 76.6 Lymphocytes % 11.8 L Monocytes % 7.8 Eosinophils % 3.3 Basophils % 0.1 Nucleated Red Blood Cells % 0.0 Neutrophils # 8.5 H Lymphocytes # 1.3 Monocytes # 0.9 Eosinophils # 0.4 Basophils # 0.0 Nucleated Red Blood Cells # 0.0 Sodium Level 144 Potassium Level 2.9 *L Chloride Level 110 Carbon Dioxide Level 31 Anion Gap 6 L Blood Urea Nitrogen 14 Creatinine 0.53 Glucose Level 90 Calcium Level 8.3 L Total Bilirubin 0.8 Direct Bilirubin 0.00 Indirect Bilirubin 0.8 Aspartate Amino Transf (AST/SGOT) 29 Alanine Aminotransferase (ALT/SGPT) 36 Alkaline Phosphatase 148 H Total Protein 5.1 L Albumin 2.2 L Globulin 2.90 Albumin/Globulin Ratio 0.75 Medications Medications Current Medications Morphine Sulfate (morphine) 2 mg Q4H PRN IV back pain Last administered on t 10:49; Admin Dose 2 MG; Start 07/24/17 at 17:30 Ondansetron HCl (Zofran Inj) 4 mg Q6H PRN IV NAUSEA AND/OR VOMITING; Start at 19:00 Morphine Sulfate (morphine) 4 mg Q4H PRN IV PAIN LEVEL 7-10 Last administered on 08/09/17 05:39; Admin Dose 4 MG; Start 07/24/17 at 19:00 Diagnostic Test (Pha) (Accu-Chek) 1 ea 02 XX Last administered on 08/08/17 01 :35; Admin Dose 1 EA; Start 07/26/17 at 02:00 Insulin Aspart (Novolog Insulin Pen) NOVOLOG *MILD* ALGORI... Q4 SC Last administered on 08/04/17 17:40; Admin Dose 1 UNIT; Start 07/25/17 at 13:00 Miscellaneous Information 1 ea NOTE XX ; Start 07/25/17 at 10:30 Glucose (Glutose) 15 gm Q15M PRN PO DECREASED GLUCOSE; Start 07/25/17 at 10:30 Glucose (Glutose) 22.5 gm Q15M PRN PO DECREASED GLUCOSE; Start 07/25/17 at 10: 30 Dextrose (D50w Syringe) 25 ml Q15M PRN IV DECREASED GLUCOSE; Start 07/25/17 at 10:30 Dextrose (D50w Syringe) 50 ml Q15M PRN IV DECREASED GLUCOSE; Start 07/25/17 at 10:30 Glucagon (Glucagen) 1 mg Q15M PRN IM DECREASED GLUCOSE; Start 07/25/17 at 10:30 Glucose (Glutose) 15 gm Q15M PRN BUCCAL DECREASED GLUCOSE; Start 07/25/17 at 10 :30 Nystatin (Nystatin Powder) 1 applic BID TOP Last administered on 08/09/17 08: 28; Admin Dose 1 APPLIC; Start 07/25/17 at 13:00 IV Flush (NS 10 ml) 10 ml PRN PRN IV IV PROTOCOL; Start 07/25/17 at 17:30 Acetaminophen (Tylenol Liquid) 650 mg Q6H PRN NGT PAIN AND OR ELEVATED TEMP Last administered on 08/04/17 05:44; Admin Dose 650 MG; Start 07/27/17 at 20:30 Atropine Sulfate 0.5 mg 0.5 mg PRN PRN IV DECREASED HEART RATE Last administered on 08/07/17 18:30; Admin Dose 0.5 MG; Start 08/01/17 at 10:30 Dextrose (D5W) 1,000 ml @ 100 mls/hr Q10H IV Last administered on 08/09/17 00:24; Admin Dose 100 MLS/HR; Start 08/07/17 at 08:30 Hydrocortisone 50 mg 50 mg DAILY IV Last administered on 08/08/17 10:15; Admin Dose 50 MG; Start 08/08/17 at 09:00; Stop 08/09/17 at 08:59 Ceftriaxone Sodium (Rocephin) 50 ml @ 100 mls/hr Q24H IVPB Last administered on 08/08/17 13:39; Admin Dose 100 MLS/HR; Start 08/07/17 at 14:00 Miscellaneous Information (Pending [facility] Order For Wound Care) This patient kuhn... PRN PRN XX WOUND CARE; Start 08/07/17 at 19:30 Lactulose (Enulose) 30 gm Q4 PRN PO CONSTIPATIN Last administered on 12:07; Admin Dose 30 GM; Start 08/08/17 at 08:00 Pantoprazole 40 mg 40 mg DAILY@06 PO Last administered on 08/09/17 05:39; Admin Dose 40 MG; Start 08/09/17 at 06:00 Potassium Chloride/Sodium Chloride (KCl/1/2 NS) 1,020 ml @ 80 mls/hr [id number] IV ; Start 08/09/17 at 08:30; Status UNV Potassium Chloride (Klor-Con 20) 20 meq TID PO ; Start 08/09/17 at 09:00; Status UNV PIPER SANTANA MD Aug 09, 2017 08:39
--- NOTE | 2017-08-09 09:22 | CONS ---
Date/Time of Note Date/Time of Note DATE: 08/09/17 TIME: 09:16 Assessment/Plan Assessment/Plan Chief Complaint/Hosp Course 1. Acute Renal Failure , due to ATN and sepsis which has resolved. Patient now has normal renal function. . 2. ALOC /encephalopathy, this has resolved and she is now awake and responsive. She is a little confused. 3. Hypotension resolved 4. E. coli UTI with sepsis 5. Thrombocytopenia , improving 6. Hypernatremia , corrected 7. pulmonary edema , improving on CXR done yesterday . 8. Hypokalemia, is being replaced The patient's renal function has improved . I will sign off at this point and see again on request. Problems: Consultation Date/Type/Reason Admit Date/Time Jul 24, 2017 at 11:53 Type of Consultation: ID Referring Provider: PIPER SANTANA MD 24 HR Interval Summary Free Text/Dictation The patient is lethargic but does arouse some to verbal stimuli. She does not talk. Subjective hx not possible: pt non-verbal Constitutional: no complaints Exam/Review of Systems Vital Signs Vitals Vital Signs Date Time Temp Pulse Resp B/P Pulse Ox O2 Delivery O2 Flow Rate FiO2 08/09/17 08:47 Nasal Cannula 2.0 08/09/17 08:13 63 08/09/17 07:56 98.3 18 132/77 97 Intake and Output 08/08/17 08/08/17 08/09/17 15:00 23:00 07:00 Intake Total 50 ml 1310 ml 400 ml Output Total 500 ml 900 ml Balance 50 ml 810 ml -500 ml Exam Constitutional: frail, non-verbal, obese Psych: confusion Neck: supple Respiratory: clear to auscultation, diminished breath sounds Cardiovascular: edema, regular rate and rhythm Gastrointestinal: soft Extremities: edema Results Result Diagram: 08/09/17 0553 08/09/17 0553 Results 24 hrs Laboratory Tests Test 08/08/17 10:52 08/08/17 12:50 08/08/17 17:08 08/08/17 21:25 White Blood Count 16.5 #H Red Blood Count 3.29 #L Hemoglobin 11.3 #L Hematocrit 34.0 L Mean Corpuscular Volume 103.3 H Mean Corpuscular Hemoglobin 34.3 H Mean Corpuscular Hemoglobin Concent 33.2 Red Cell Distribution Width 15.4 H Platelet Count 159 # Mean Platelet Volume 12.2 H Neutrophils % 80.8 H Lymphocytes % 10.6 L Monocytes % 6.4 Eosinophils % 1.5 Basophils % 0.1 Nucleated Red Blood Cells % 0.0 Neutrophils # 13.3 H Lymphocytes # 1.8 Monocytes # 1.1 H Eosinophils # 0.3 Basophils # 0.0 Nucleated Red Blood Cells # 0.0 Sodium Level 147 H Potassium Level 3.3 L Chloride Level 112 H Carbon Dioxide Level 27 Anion Gap 11 # Blood Urea Nitrogen 19 # Creatinine 0.62 Glucose Level 108 Calcium Level 8.5 Total Bilirubin 0.9 Direct Bilirubin 0.00 Indirect Bilirubin 0.9 Aspartate Amino Transf (AST/SGOT) 39 Alanine Aminotransferase (ALT/SGPT) 41 Alkaline Phosphatase 194 H Total Protein 5.9 L Albumin 2.8 L Globulin 3.10 Albumin/Globulin Ratio 0.90 Bedside Glucose 127 137 81 Test 08/09/17 00:31 08/09/17 05:46 08/09/17 05:53 Bedside Glucose 96 95 White Blood Count 11.1 #H Red Blood Count 3.07 L Hemoglobin 10.2 L Hematocrit 31.5 L Mean Corpuscular Volume 102.6 H Mean Corpuscular Hemoglobin 33.2 H Mean Corpuscular Hemoglobin Concent 32.4 Red Cell Distribution Width 15.5 H Platelet Count 98 #L Mean Platelet Volume 12.2 H Neutrophils % 76.6 Lymphocytes % 11.8 L Monocytes % 7.8 Eosinophils % 3.3 Basophils % 0.1 Nucleated Red Blood Cells % 0.0 Neutrophils # 8.5 H Lymphocytes # 1.3 Monocytes # 0.9 Eosinophils # 0.4 Basophils # 0.0 Nucleated Red Blood Cells # 0.0 Sodium Level 144 Potassium Level 2.9 *L Chloride Level 110 Carbon Dioxide Level 31 Anion Gap 6 L Blood Urea Nitrogen 14 Creatinine 0.53 Glucose Level 90 Calcium Level 8.3 L Total Bilirubin 0.8 Direct Bilirubin 0.00 Indirect Bilirubin 0.8 Aspartate Amino Transf (AST/SGOT) 29 Alanine Aminotransferase (ALT/SGPT) 36 Alkaline Phosphatase 148 H Total Protein 5.1 L Albumin 2.2 L Globulin 2.90 Albumin/Globulin Ratio 0.75 Medications Medications Current Medications Morphine Sulfate (morphine) 2 mg Q4H PRN IV back pain Last administered on t 10:49; Admin Dose 2 MG; Start 07/24/17 at 17:30 Ondansetron HCl (Zofran Inj) 4 mg Q6H PRN IV NAUSEA AND/OR VOMITING; Start at 19:00 Morphine Sulfate (morphine) 4 mg Q4H PRN IV PAIN LEVEL 7-10 Last administered on 08/09/17 05:39; Admin Dose 4 MG; Start 07/24/17 at 19:00 Miscellaneous Information 1 ea NOTE XX ; Start 07/25/17 at 10:30 Nystatin (Nystatin Powder) 1 applic BID TOP Last administered on 08/09/17 08: 28; Admin Dose 1 APPLIC; Start 07/25/17 at 13:00 IV Flush (NS 10 ml) 10 ml PRN PRN IV IV PROTOCOL; Start 07/25/17 at 17:30 Acetaminophen (Tylenol Liquid) 650 mg Q6H PRN NGT PAIN AND OR ELEVATED TEMP Last administered on 08/04/17 05:44; Admin Dose 650 MG; Start 07/27/17 at 20:30 Atropine Sulfate 0.5 mg 0.5 mg PRN PRN IV DECREASED HEART RATE Last administered on 08/07/17 18:30; Admin Dose 0.5 MG; Start 08/01/17 at 10:30 Dextrose 1,000 ml @ 100 mls/hr Q10H IV Last administered on 08/09/17 00:24; Admin Dose 100 MLS/HR; Start 08/07/17 at 08:30; Stop 08/09/17 at 09:59 Ceftriaxone Sodium (Rocephin) 50 ml @ 100 mls/hr Q24H IVPB Last administered on 08/08/17 13:39; Admin Dose 100 MLS/HR; Start 08/07/17 at 14:00 Miscellaneous Information (Pending [facility] Order For Wound Care) This patient kuhn... PRN PRN XX WOUND CARE; Start 08/07/17 at 19:30 Lactulose (Enulose) 30 gm Q4 PRN PO CONSTIPATIN Last administered on 12:07; Admin Dose 30 GM; Start 08/08/17 at 08:00 Pantoprazole 40 mg 40 mg DAILY@06 PO Last administered on 08/09/17 05:39; Admin Dose 40 MG; Start 08/09/17 at 06:00 Potassium Chloride/Sodium Chloride (KCl/1/2 NS) 1,020 ml @ 80 mls/hr [id number] IV ; Start 08/09/17 at 10:00 Potassium Chloride (Klor-Con 20) 20 meq TID PO ; Start 08/09/17 at 09:00 GRACE GRANDE MD Aug 09, 2017 09:22
[2017-08-09] MEDS: POTASSIUM CHLORIDE (SR) 20 MEQ TAB PO SCH ×3 (10:12→21:59)
[2017-08-09] MEDS: POTASSIUM CHLORIDE 40 MEQ in SOD CHLORIDE 0.45% 1,000 ML IV SCH ×2 (10:12→22:55)
[2017-08-09] MEDS: CEFTRIAXONE 1 GM/50 ML (PMX) 50 ML IVPB SCH (13:01)
--- NOTE | 2017-08-09 14:07 | CONS ---
Date/Time of Note Date/Time of Note DATE: 08/09/17 TIME: 14:06 Consult Date/Type/Reason Admit Date/Time Jul 24, 2017 at 11:53 Initial Consult Date 07/25/17 Type of Consultation: ID Ordering Provider: PIPER SANTANA MD Objective Vital Signs Date Time Temp Pulse Resp B/P Pulse Ox O2 Delivery O2 Flow Rate FiO2 08/09/17 12:10 84 08/09/17 12:00 Nasal Cannula 2.0 08/09/17 11:21 98.6 18 127/63 93 Intake and Output 08/08/17 08/08/17 08/09/17 15:00 23:00 07:00 Intake Total 50 ml 1310 ml 400 ml Output Total 500 ml 900 ml Balance 50 ml 810 ml -500 ml Results/Medications Result Diagram: 08/09/17 0553 08/09/17 0553 Results 24 hrs Laboratory Tests Test 08/08/17 17:08 08/08/17 21:25 08/09/17 00:31 08/09/17 05:46 Bedside Glucose 137 81 96 95 Test 08/09/17 05:53 White Blood Count 11.1 #H Red Blood Count 3.07 L Hemoglobin 10.2 L Hematocrit 31.5 L Mean Corpuscular Volume 102.6 H Mean Corpuscular Hemoglobin 33.2 H Mean Corpuscular Hemoglobin Concent 32.4 Red Cell Distribution Width 15.5 H Platelet Count 98 #L Mean Platelet Volume 12.2 H Neutrophils % 76.6 Lymphocytes % 11.8 L Monocytes % 7.8 Eosinophils % 3.3 Basophils % 0.1 Nucleated Red Blood Cells % 0.0 Neutrophils # 8.5 H Lymphocytes # 1.3 Monocytes # 0.9 Eosinophils # 0.4 Basophils # 0.0 Nucleated Red Blood Cells # 0.0 Sodium Level 144 Potassium Level 2.9 *L Chloride Level 110 Carbon Dioxide Level 31 Anion Gap 6 L Blood Urea Nitrogen 14 Creatinine 0.53 Glucose Level 90 Calcium Level 8.3 L Total Bilirubin 0.8 Direct Bilirubin 0.00 Indirect Bilirubin 0.8 Aspartate Amino Transf (AST/SGOT) 29 Alanine Aminotransferase (ALT/SGPT) 36 Alkaline Phosphatase 148 H Total Protein 5.1 L Albumin 2.2 L Globulin 2.90 Albumin/Globulin Ratio 0.75 Medications Current Medications Morphine Sulfate (morphine) 2 mg Q4H PRN IV back pain Last administered on 10:49; Admin Dose 2 MG; Start 07/24/17 at 17:30 Ondansetron HCl (Zofran Inj) 4 mg Q6H PRN IV NAUSEA AND/OR VOMITING; Start at 19:00 Morphine Sulfate (morphine) 4 mg Q4H PRN IV PAIN LEVEL 7-10 Last administered on 08/09/17 05:39; Admin Dose 4 MG; Start 07/24/17 at 19:00 Miscellaneous Information 1 ea NOTE XX ; Start 07/25/17 at 10:30 Nystatin (Nystatin Powder) 1 applic BID TOP Last administered on 08/09/17 08: 28; Admin Dose 1 APPLIC; Start 07/25/17 at 13:00 IV Flush (NS 10 ml) 10 ml PRN PRN IV IV PROTOCOL; Start 07/25/17 at 17:30 Acetaminophen (Tylenol Liquid) 650 mg Q6H PRN NGT PAIN AND OR ELEVATED TEMP Last administered on 08/04/17 05:44; Admin Dose 650 MG; Start 07/27/17 at 20:30 Atropine Sulfate 0.5 mg 0.5 mg PRN PRN IV DECREASED HEART RATE Last administered on 08/07/17 18:30; Admin Dose 0.5 MG; Start 08/01/17 at 10:30 Ceftriaxone Sodium (Rocephin) 50 ml @ 100 mls/hr Q24H IVPB Last administered on 08/09/17 13:01; Admin Dose 100 MLS/HR; Start 08/07/17 at 14:00 Miscellaneous Information (Pending [facility] Order For Wound Care) This patient kuhn... PRN PRN XX WOUND CARE; Start 08/07/17 at 19:30 Lactulose (Enulose) 30 gm Q4 PRN PO CONSTIPATIN Last administered on 12:07; Admin Dose 30 GM; Start 08/08/17 at 08:00 Pantoprazole 40 mg 40 mg DAILY@06 PO Last administered on 08/09/17 05:39; Admin Dose 40 MG; Start 08/09/17 at 06:00 Potassium Chloride/Sodium Chloride (KCl/1/2 NS) 1,020 ml @ 80 mls/hr [id number] IV Last administered on 08/09/17 10:12; Admin Dose 80 MLS/HR; Start at 10:00 Potassium Chloride (Klor-Con 20) 20 meq TID PO Last administered on 08/09/17 13:01; Admin Dose 20 MEQ; Start 08/09/17 at 09:00 Assessment/Plan Chief Complaint/Hosp Course SUBJECTIVE: No events overnight. Awake, looks comfortable, afebrile . ANTIMICROBIALS: Rocephin INDWELLINGS: [place] catheter, PICC line. PHYSICAL EXAMINATION: GENERAL: Well-developed, obese, elderly woman who is in no distress. HEENT: Head atraumatic, normocephalic. Sclerae anicteric. Buccal mucosa dry. NECK: Supple. CHEST: Rise symmetrical. Breath sounds diminished to bases. HEART: S1, S2. ABDOMEN: Soft, bowel tones present. EXTREMITIES: Without cyanosis. ASSESSMENT: 1. Status post septic shock. 2. Status post Escherichia coli extended-spectrum beta-lactamase with bacteremia. 3. Resolving left lower extremity cellulitis. 4. Sinus bradycardia. 5. Status post acute kidney failure, resolved. 6. Back pain/L1 fx PLAN: Remains stable, pending spinal MRI, continue present care, dc abx in am Problems: ERICKA LEGER NP Aug 09, 2017 14:07
[2017-08-09] MEDS: morphine 2 MG INJ IV PRN (15:04)
--- NOTE | 2017-08-09 17:27 | PN ---
Date/Time of Note Date/Time of Note DATE: 08/09/17 TIME: 17:25 Assessment/Plan VTE Prophylaxis VTE Prophylaxis Intervention: SCD's Lines/Catheters IV Catheter Type (from Nrs): PICC Line Central line still needed: No Urinary Cath still in place: Yes Reason Cath still needed: urinary retention Assessment/Plan Assessment/Plan 1. Encephalopathy improving 2. Hypoxemic and hypercapnic respiratory failure 3. Status post gram-negative septic shock 4. Thrombocytopenia. 5. Renal insufficiency likely ATN injury on top of chronic renal insufficiency. 6. Sinus Bradycardia 7. s/p Fluid overload 8. s/p hypokalemia Plan 2. Continue broad-spectrum antibiotic coverage, 5. HR 50-60s will avoid PPM a 7. s/p atropine for bradycardia no pacer necessary for now but probable SSS 8. outptient loop recorder vs event recorder Subjective 24 Hr Interval Summary Free Text/Dictation the patint with no cahnge Exam/Review of Systems Vital Signs Vitals Vital Signs Date Time Temp Pulse Resp B/P Pulse Ox O2 Delivery O2 Flow Rate FiO2 08/09/17 16:14 58 08/09/17 15:28 2.0 08/09/17 15:21 98.9 17 119/58 95 08/09/17 12:00 Nasal Cannula Intake and Output 08/08/17 08/08/17 08/09/17 15:00 23:00 07:00 Intake Total 50 ml 1310 ml 400 ml Output Total 500 ml 900 ml Balance 50 ml 810 ml -500 ml Results Result Diagram: 08/09/17 0553 08/09/17 0553 Results 24 hrs Laboratory Tests Test 08/08/17 21:25 08/09/17 00:31 08/09/17 05:46 08/09/17 05:53 Bedside Glucose 81 96 95 White Blood Count 11.1 #H Red Blood Count 3.07 L Hemoglobin 10.2 L Hematocrit 31.5 L Mean Corpuscular Volume 102.6 H Mean Corpuscular Hemoglobin 33.2 H Mean Corpuscular Hemoglobin Concent 32.4 Red Cell Distribution Width 15.5 H Platelet Count 98 #L Mean Platelet Volume 12.2 H Neutrophils % 76.6 Lymphocytes % 11.8 L Monocytes % 7.8 Eosinophils % 3.3 Basophils % 0.1 Nucleated Red Blood Cells % 0.0 Neutrophils # 8.5 H Lymphocytes # 1.3 Monocytes # 0.9 Eosinophils # 0.4 Basophils # 0.0 Nucleated Red Blood Cells # 0.0 Sodium Level 144 Potassium Level 2.9 *L Chloride Level 110 Carbon Dioxide Level 31 Anion Gap 6 L Blood Urea Nitrogen 14 Creatinine 0.53 Glucose Level 90 Calcium Level 8.3 L Total Bilirubin 0.8 Direct Bilirubin 0.00 Indirect Bilirubin 0.8 Aspartate Amino Transf (AST/SGOT) 29 Alanine Aminotransferase (ALT/SGPT) 36 Alkaline Phosphatase 148 H Total Protein 5.1 L Albumin 2.2 L Globulin 2.90 Albumin/Globulin Ratio 0.75 Medications Medications Current Medications Morphine Sulfate (morphine) 2 mg Q4H PRN IV back pain Last administered on 15:04; Admin Dose 2 MG; Start 07/24/17 at 17:30 Ondansetron HCl (Zofran Inj) 4 mg Q6H PRN IV NAUSEA AND/OR VOMITING; Start at 19:00 Morphine Sulfate (morphine) 4 mg Q4H PRN IV PAIN LEVEL 7-10 Last administered on 08/09/17 05:39; Admin Dose 4 MG; Start 07/24/17 at 19:00 Miscellaneous Information 1 ea NOTE XX ; Start 07/25/17 at 10:30 Nystatin (Nystatin Powder) 1 applic BID TOP Last administered on 08/09/17 08: 28; Admin Dose 1 APPLIC; Start 07/25/17 at 13:00 IV Flush (NS 10 ml) 10 ml PRN PRN IV IV PROTOCOL; Start 07/25/17 at 17:30 Acetaminophen (Tylenol Liquid) 650 mg Q6H PRN NGT PAIN AND OR ELEVATED TEMP Last administered on 08/04/17 05:44; Admin Dose 650 MG; Start 07/27/17 at 20:30 Atropine Sulfate 0.5 mg 0.5 mg PRN PRN IV DECREASED HEART RATE Last administered on 08/07/17 18:30; Admin Dose 0.5 MG; Start 08/01/17 at 10:30 Ceftriaxone Sodium (Rocephin) 50 ml @ 100 mls/hr Q24H IVPB Last administered on 08/09/17 13:01; Admin Dose 100 MLS/HR; Start 08/07/17 at 14:00; Stop at 06:00 Miscellaneous Information (Pending [facility] Order For Wound Care) This patient kuhn... PRN PRN XX WOUND CARE; Start 08/07/17 at 19:30 Lactulose (Enulose) 30 gm Q4 PRN PO CONSTIPATIN Last administered on 12:07; Admin Dose 30 GM; Start 08/08/17 at 08:00 Pantoprazole 40 mg 40 mg DAILY@06 PO Last administered on 08/09/17 05:39; Admin Dose 40 MG; Start 08/09/17 at 06:00 Potassium Chloride/Sodium Chloride (KCl/1/2 NS) 1,020 ml @ 80 mls/hr [id number] IV Last administered on 08/09/17 10:12; Admin Dose 80 MLS/HR; Start at 10:00 Potassium Chloride (Klor-Con 20) 20 meq TID PO Last administered on 08/09/17 13:01; Admin Dose 20 MEQ; Start 08/09/17 at 09:00 JENNIE LEY MD Aug 09, 2017 17:27
[2017-08-10] VITALS (12 sets, daily range): BP systolic 136–151; BP diastolic 60–86; PULSE 69–92; RESP 18
[2017-08-10] MEDS: PANTOPRAZOLE (EC) 40 MG TAB PO SCH (06:15)
[2017-08-10 06:32] LABS: BASOPHILS % 0.1 % (0.0-2.0); EOSINOPHILS # 0.5 10^3/ul (0.0-0.5); EOSINOPHILS % 4.3 % (0.0-7.0); HEMATOCRIT 29.3 % (37.0-47.0); HEMOGLOBIN 9.3 g/dl (12.0-16.0); LYMPHOCYTES # 1.2 10^3/ul (0.8-2.9); LYMPHOCYTES % 9.6 % (15.0-51.0); MEAN CORPUSCULAR HEMOGLOBIN 33.2 pg (29.0-33.0); MEAN CORPUSCULAR HGB CONC 31.7 g/dl (32.0-37.0); MEAN CORPUSCULAR VOLUME 104.6 fl (82.0-101.0); MEAN PLATELET VOLUME 12.4 fl (7.4-10.4); MONOCYTES % 8.1 % (0.0-11.0); NEUTROPHIL # 9.7 10^3/ul (1.6-7.5); NEUTROPHILS % 77.6 % (39.0-77.0); PLATELET COUNT 111 10^3/UL (140-415); RED CELL DISTRIBUTION WIDTH 15.4 % (11.5-14.5); WHITE BLOOD COUNT 12.4 10^3/ul (4.8-10.8)
[2017-08-10 07:10] LABS: ALBUMIN 2.3 g/dl (3.3-4.9); ALBUMIN/GLOBULIN RATIO 0.74; BILIRUBIN,INDIRECT 0.6 mg/dl (0-1.1); BILIRUBIN,TOTAL 0.6 mg/dl (0.2-1.3); CALCIUM 8.5 mg/dl (8.4-10.2); CREATININE 0.62 mg/dl (0.44-1.00); POTASSIUM 3.5 mmol/L (3.5-5.1); TOTAL PROTEIN 5.4 g/dl (6.1-8.1)
[2017-08-10] MEDS: morphine 4 MG/ML VIAL IV PRN (08:37)
[2017-08-10] MEDS: NYSTATIN 30 GM POWDER BTL TOP SCH ×2 (09:54→20:50)
[2017-08-10] MEDS: POTASSIUM CHLORIDE (SR) 20 MEQ TAB PO SCH ×3 (09:54→20:48)
[2017-08-10] MEDS: BALSAM PERU/CASTOR OIL 60 GM TUBE TOP SCH ×2 (09:54→20:50)
--- NOTE | 2017-08-10 11:19 | CONS ---
Date/Time of Note Date/Time of Note DATE: 08/10/17 TIME: 11:19 Assessment/Plan Assessment/Plan Chief Complaint/Hosp Course ID PROGRESS NOTE CURRENT ABX: OFF ABX DAY #1 s/p 14 days + ABX / Ceftriaxone DC'd 08/10 24H INTERVAL SUMMARY * Awake yet lethargic, obese lying in bed, calm, VSS * OFF ABX today * LLEXT w/mild edema/chronic venous stasis dark hyperpigmentation changes Physical Exam Physical Exam Constitutional: VSS, NAD, no fevers, awake, calm HEENT: Unremarkable Neck: Supple Respiratory: Equal chest rise bilaterally, without dyspnea Cardiovascular: nl pulses, regular rate and rhythm Gastrointestinal: Soft, NT, super obese Extremities: Warm / chronic venous stasis hyperpigmentation changes ID ASSESSMENT 71 yo Obese F admit with: 1. Status post septic shock. 2. Status post Escherichia coli extended-spectrum beta-lactamase with bacteremia. 3. Resolving left lower extremity cellulitis. 4. Sinus bradycardia. 5. Status post acute kidney failure, resolved. 6. Back pain/L1 fx (- )MRSA Nares ABX ALLERGIES: SULFA CURRENT ABX: OFF ABX DAY #1 s/p 14 days + ABX / Ceftriaxone DC'd 08/10 ID RECOMMENDATIONS 1. Has completed course of ABX, for UTI/sepsis, monitor 2. May DC OFF ABX to SNF or home when cleared by primary as long as no evidence recurrent sepsis . Problems: Consultation Date/Type/Reason Admit Date/Time Jul 24, 2017 at 11:53 Initial Consult Date 08/07/17 Type of Consultation: ID Referring Provider: PIPER SANTANA MD Exam/Review of Systems Vital Signs Vitals Vital Signs Date Time Temp Pulse Resp B/P Pulse Ox O2 Delivery O2 Flow Rate FiO2 08/10/17 08:42 87 08/10/17 07:33 98.0 18 150/86 98 08/10/17 06:49 2.0 08/09/17 20:46 Nasal Cannula Intake and Output 08/09/17 08/09/17 08/10/17 15:00 23:00 07:00 Intake Total 1570 ml 760 ml Output Total 750 ml 1000 ml Balance 820 ml -240 ml Results Result Diagram: 08/10/17 0540 08/10/17 0540 Results 24 hrs Laboratory Tests Test 08/10/17 05:40 White Blood Count 12.4 H Red Blood Count 2.80 L Hemoglobin 9.3 L Hematocrit 29.3 L Mean Corpuscular Volume 104.6 H Mean Corpuscular Hemoglobin 33.2 H Mean Corpuscular Hemoglobin Concent 31.7 L Red Cell Distribution Width 15.4 H Platelet Count 111 L Mean Platelet Volume 12.4 H Neutrophils % 77.6 H Lymphocytes % 9.6 L Monocytes % 8.1 Eosinophils % 4.3 Basophils % 0.1 Nucleated Red Blood Cells % 0.0 Neutrophils # 9.7 H Lymphocytes # 1.2 Monocytes # 1.0 H Eosinophils # 0.5 Basophils # 0.0 Nucleated Red Blood Cells # 0.0 Sodium Level 137 Potassium Level 3.5 Chloride Level 110 Carbon Dioxide Level 29 Anion Gap 2 L Blood Urea Nitrogen 12 Creatinine 0.62 Glucose Level 82 Calcium Level 8.5 Total Bilirubin 0.6 Direct Bilirubin 0.00 Indirect Bilirubin 0.6 Aspartate Amino Transf (AST/SGOT) 24 Alanine Aminotransferase (ALT/SGPT) 34 Alkaline Phosphatase 151 H Total Protein 5.4 L Albumin 2.3 L Globulin 3.10 Albumin/Globulin Ratio 0.74 Medications Medications Current Medications Morphine Sulfate (morphine) 2 mg Q4H PRN IV back pain Last administered on 15:04; Admin Dose 2 MG; Start 07/24/17 at 17:30 Ondansetron HCl (Zofran Inj) 4 mg Q6H PRN IV NAUSEA AND/OR VOMITING; Start at 19:00 Morphine Sulfate (morphine) 4 mg Q4H PRN IV PAIN LEVEL 7-10 Last administered on 08/10/17 08:37; Admin Dose 4 MG; Start 07/24/17 at 19:00 Miscellaneous Information 1 ea NOTE XX ; Start 07/25/17 at 10:30 Nystatin (Nystatin Powder) 1 applic BID TOP Last administered on 08/10/17 09: 54; Admin Dose 1 APPLIC; Start 07/25/17 at 13:00 IV Flush (NS 10 ml) 10 ml PRN PRN IV IV PROTOCOL; Start 07/25/17 at 17:30 Acetaminophen (Tylenol Liquid) 650 mg Q6H PRN NGT PAIN AND OR ELEVATED TEMP Last administered on 08/04/17 05:44; Admin Dose 650 MG; Start 07/27/17 at 20:30 Atropine Sulfate (Atropine (Syringe)) 0.5 mg PRN PRN IV DECREASED HEART RATE Last administered on 08/07/17 18:30; Admin Dose 0.5 MG; Start 08/01/17 at 10: 30 Miscellaneous Information (Pending [facility] Order For Wound Care) This patient kuhn... PRN PRN XX WOUND CARE; Start 08/07/17 at 19:30 Lactulose (Enulose) 30 gm Q4 PRN PO CONSTIPATIN Last administered on 12:07; Admin Dose 30 GM; Start 08/08/17 at 08:00 Pantoprazole 40 mg 40 mg DAILY@06 PO Last administered on 08/10/17 06:15; Admin Dose 40 MG; Start 08/09/17 at 06:00 Potassium Chloride/Sodium Chloride (KCl/1/2 NS) 1,020 ml @ 80 mls/hr [id number] IV Last administered on 08/09/17 22:55; Admin Dose 80 MLS/HR; Start at 10:00 Potassium Chloride (Klor-Con 20) 20 meq TID PO Last administered on 08/10/17 09:54; Admin Dose 20 MEQ; Start 08/09/17 at 09:00 MICHAEL NICOLE NP Aug 10, 2017 11:19
--- NOTE | 2017-08-10 13:20 | CONS ---
Date/Time of Note Date/Time of Note DATE: 08/10/17 TIME: 13:19 Assessment/Plan Assessment/Plan Chief Complaint/Hosp Course 1. Encephalopathy improving 2. Hypoxemic and hypercapnic respiratory failure 3. Status post gram-negative septic shock 4. Thrombocytopenia. 5. Renal insufficiency likely ATN injury on top of chronic renal insufficiency. 6. Sinus Bradycardia 7. s/p Fluid overload 8. s/p hypokalemia Problems: Additional Assessment/Plan no change in cardiac meds SSS probably but no need for PPM now Consultation Date/Type/Reason Admit Date/Time Jul 24, 2017 at 11:53 Initial Consult Date 08/07/17 Type of Consultation: cv Referring Provider: PIPER SANTANA MD 24 HR Interval Summary Free Text/Dictation no chest pain, no sob, no palpitations, no syncope or near syncope Detailed Summary Respiratory: no complaints Cardiovascular: no complaints Gastrointestinal: no complaints Musculoskeletal: no complaints Skin: no complaints Neurologic: no complaints Endocrine: no complaints Exam/Review of Systems Vital Signs Vitals Vital Signs Date Time Temp Pulse Resp B/P Pulse Ox O2 Delivery O2 Flow Rate FiO2 08/10/17 12:39 92 08/10/17 11:44 98.0 18 148/62 98 08/10/17 06:49 2.0 08/09/17 20:46 Nasal Cannula Intake and Output 08/09/17 08/09/17 08/10/17 15:00 23:00 07:00 Intake Total 1570 ml 760 ml Output Total 750 ml 1000 ml Balance 820 ml -240 ml Exam Constitutional: alert, oriented Head: atraumatic, normocephalic Neck: supple Respiratory: clear to auscultation Cardiovascular: regular rate and rhythm Gastrointestinal: soft Musculoskeletal: nl extremities to inspection Results Result Diagram: 08/10/17 0540 08/10/17 0540 Results 24 hrs Laboratory Tests Test 08/10/17 05:40 White Blood Count 12.4 H Red Blood Count 2.80 L Hemoglobin 9.3 L Hematocrit 29.3 L Mean Corpuscular Volume 104.6 H Mean Corpuscular Hemoglobin 33.2 H Mean Corpuscular Hemoglobin Concent 31.7 L Red Cell Distribution Width 15.4 H Platelet Count 111 L Mean Platelet Volume 12.4 H Neutrophils % 77.6 H Lymphocytes % 9.6 L Monocytes % 8.1 Eosinophils % 4.3 Basophils % 0.1 Nucleated Red Blood Cells % 0.0 Neutrophils # 9.7 H Lymphocytes # 1.2 Monocytes # 1.0 H Eosinophils # 0.5 Basophils # 0.0 Nucleated Red Blood Cells # 0.0 Sodium Level 137 Potassium Level 3.5 Chloride Level 110 Carbon Dioxide Level 29 Anion Gap 2 L Blood Urea Nitrogen 12 Creatinine 0.62 Glucose Level 82 Calcium Level 8.5 Total Bilirubin 0.6 Direct Bilirubin 0.00 Indirect Bilirubin 0.6 Aspartate Amino Transf (AST/SGOT) 24 Alanine Aminotransferase (ALT/SGPT) 34 Alkaline Phosphatase 151 H Total Protein 5.4 L Albumin 2.3 L Globulin 3.10 Albumin/Globulin Ratio 0.74 Medications Medications Current Medications Morphine Sulfate (morphine) 2 mg Q4H PRN IV back pain Last administered on 15:04; Admin Dose 2 MG; Start 07/24/17 at 17:30 Ondansetron HCl (Zofran Inj) 4 mg Q6H PRN IV NAUSEA AND/OR VOMITING; Start at 19:00 Morphine Sulfate (morphine) 4 mg Q4H PRN IV PAIN LEVEL 7-10 Last administered on 08/10/17 08:37; Admin Dose 4 MG; Start 07/24/17 at 19:00 Miscellaneous Information 1 ea NOTE XX ; Start 07/25/17 at 10:30 Nystatin (Nystatin Powder) 1 applic BID TOP Last administered on 08/10/17 09: 54; Admin Dose 1 APPLIC; Start 07/25/17 at 13:00 IV Flush (NS 10 ml) 10 ml PRN PRN IV IV PROTOCOL; Start 07/25/17 at 17:30 Acetaminophen (Tylenol Liquid) 650 mg Q6H PRN NGT PAIN AND OR ELEVATED TEMP Last administered on 08/04/17 05:44; Admin Dose 650 MG; Start 07/27/17 at 20:30 Atropine Sulfate (Atropine (Syringe)) 0.5 mg PRN PRN IV DECREASED HEART RATE Last administered on 08/07/17 18:30; Admin Dose 0.5 MG; Start 08/01/17 at 10: 30 [facility] This patient kuhn... PRN PRN XX WOUND CARE; Start 08/07/17 at 19:30 Lactulose (Enulose) 30 gm Q4 PRN PO CONSTIPATIN Last administered on 12:07; Admin Dose 30 GM; Start 08/08/17 at 08:00 Pantoprazole 40 mg 40 mg DAILY@06 PO Last administered on 08/10/17 06:15; Admin Dose 40 MG; Start 08/09/17 at 06:00 Potassium Chloride/Sodium Chloride (KCl/1/2 NS) 1,020 ml @ 80 mls/hr [id number] IV Last administered on 08/09/17 22:55; Admin Dose 80 MLS/HR; Start at 10:00 Potassium Chloride (Klor-Con 20) 20 meq TID PO Last administered on 08/10/17 09:54; Admin Dose 20 MEQ; Start 08/09/17 at 09:00 NICHO HOLM MD Aug 10, 2017 13:20
[2017-08-10] MEDS ORDERED: HYDROmorphONE 0.5 MG/0.5 ML SYG IV STA ×2 (13:23→13:29)
--- NOTE | 2017-08-10 13:43 | PN ---
Date/Time of Note Date/Time of Note DATE: 08/10/17 TIME: 13:32 Assessment/Plan VTE Prophylaxis VTE Prophylaxis Intervention: anti-embolic stocking Lines/Catheters IV Catheter Type (from Nrs): PICC Line Central line still needed: Yes Urinary Cath still in place: Yes Reason Cath still needed: other (indicate) (vertebral fracture) Assessment/Plan Problems: (1) Altered consciousness Status: Acute Comment: Encephalopathy improving. Per Dr. Hawley near baseline. (2) Septicemia due to Gram negative organism Status: Acute Comment: IV antibiotic completed per infectious disease service. Still with an elevated WBC but improved. Remains afebrile. (3) Acute renal failure (ARF) Status: Resolved Qualifiers: Acute renal failure type: with acute renal cortical necrosis Qualified Code : N17.1 - Acute renal failure with acute cortical necrosis (4) Back pain Status: Acute Comment: Vertebral fracture. Appreciate Dr. Peters input. Will reattempt MRI. Will possibly need sedation. Qualifiers: Back pain location: low back pain Chronicity: acute Back pain laterality : left Sciatica presence: without sciatica Qualified Code: M54.5 - Acute left-sided low back pain without sciatica (5) Compression fracture of L1 lumbar vertebra Status: Acute Comment: Awaiting MRI. Will likely need Acute Rehab Unit consultation. Ptient with extreme difficulty ambulating and moving on her own. Subjective 24 Hr Interval Summary Free Text/Dictation Patient complain of headache at this time. Denies photophobia. Exam/Review of Systems Vital Signs Vitals Vital Signs Date Time Temp Pulse Resp B/P Pulse Ox O2 Delivery O2 Flow Rate FiO2 08/10/17 12:39 92 08/10/17 11:44 98.0 18 148/62 98 08/10/17 06:49 2.0 08/09/17 20:46 Nasal Cannula Intake and Output 08/09/17 08/09/17 08/10/17 14:59 22:59 06:59 Intake Total 1570 ml 760 ml Output Total 750 ml 1000 ml Balance 820 ml -240 ml Exam at bedside Constitutional: obese, other (Awake and distressed secondary to back and back pain and headache) Eyes: EOMI, PERRL, nl conjunctiva ENMT: mucosa pink and moist Neck: other (no rigidity but complain of pain with passive movement), supple Respiratory: clear to auscultation Cardiovascular: regular rate and rhythm Gastrointestinal: soft Extremities: edema (pitting bilaterally) Results Labs and vitals reviewed Result Diagram: 08/10/17 0540 08/10/17 0540 Results 24 hrs Laboratory Tests Test 08/10/17 05:40 White Blood Count 12.4 H Red Blood Count 2.80 L Hemoglobin 9.3 L Hematocrit 29.3 L Mean Corpuscular Volume 104.6 H Mean Corpuscular Hemoglobin 33.2 H Mean Corpuscular Hemoglobin Concent 31.7 L Red Cell Distribution Width 15.4 H Platelet Count 111 L Mean Platelet Volume 12.4 H Neutrophils % 77.6 H Lymphocytes % 9.6 L Monocytes % 8.1 Eosinophils % 4.3 Basophils % 0.1 Nucleated Red Blood Cells % 0.0 Neutrophils # 9.7 H Lymphocytes # 1.2 Monocytes # 1.0 H Eosinophils # 0.5 Basophils # 0.0 Nucleated Red Blood Cells # 0.0 Sodium Level 137 Potassium Level 3.5 Chloride Level 110 Carbon Dioxide Level 29 Anion Gap 2 L Blood Urea Nitrogen 12 Creatinine 0.62 Glucose Level 82 Calcium Level 8.5 Total Bilirubin 0.6 Direct Bilirubin 0.00 Indirect Bilirubin 0.6 Aspartate Amino Transf (AST/SGOT) 24 Alanine Aminotransferase (ALT/SGPT) 34 Alkaline Phosphatase 151 H Total Protein 5.4 L Albumin 2.3 L Globulin 3.10 Albumin/Globulin Ratio 0.74 Medications Medications Current Medications Morphine Sulfate (morphine) 2 mg Q4H PRN IV back pain Last administered on 15:04; Admin Dose 2 MG; Start 07/24/17 at 17:30 Ondansetron HCl (Zofran Inj) 4 mg Q6H PRN IV NAUSEA AND/OR VOMITING; Start at 19:00 Morphine Sulfate (morphine) 4 mg Q4H PRN IV PAIN LEVEL 7-10 Last administered on 08/10/17 08:37; Admin Dose 4 MG; Start 07/24/17 at 19:00 Miscellaneous Information 1 ea NOTE XX ; Start 07/25/17 at 10:30 Nystatin (Nystatin Powder) 1 applic BID TOP Last administered on 08/10/17 09: 54; Admin Dose 1 APPLIC; Start 07/25/17 at 13:00 IV Flush (NS 10 ml) 10 ml PRN PRN IV IV PROTOCOL; Start 07/25/17 at 17:30 Acetaminophen (Tylenol Liquid) 650 mg Q6H PRN NGT PAIN AND OR ELEVATED TEMP Last administered on 08/04/17 05:44; Admin Dose 650 MG; Start 07/27/17 at 20:30 Atropine Sulfate (Atropine (Syringe)) 0.5 mg PRN PRN IV DECREASED HEART RATE Last administered on 08/07/17 18:30; Admin Dose 0.5 MG; Start 08/01/17 at 10: 30 Miscellaneous Information (Pending [facility] Order For Wound Care) This patient kuhn... PRN PRN XX WOUND CARE; Start 08/07/17 at 19:30 Lactulose (Enulose) 30 gm Q4 PRN PO CONSTIPATIN Last administered on 12:07; Admin Dose 30 GM; Start 08/08/17 at 08:00 Pantoprazole 40 mg 40 mg DAILY@06 PO Last administered on 08/10/17 06:15; Admin Dose 40 MG; Start 08/09/17 at 06:00 Potassium Chloride/Sodium Chloride (KCl/1/2 NS) 1,020 ml @ 80 mls/hr [id number] IV Last administered on 08/09/17 22:55; Admin Dose 80 MLS/HR; Start at 10:00 Potassium Chloride (Klor-Con 20) 20 meq TID PO Last administered on 08/10/17 09:54; Admin Dose 20 MEQ; Start 08/09/17 at 09:00 MENA COELHO MD Aug 10, 2017 13:42
[2017-08-10] MEDS: POTASSIUM CHLORIDE 40 MEQ in SOD CHLORIDE 0.45% 1,000 ML IV SCH (14:10)
[2017-08-11] VITALS (12 sets, daily range): BP systolic 130–155; BP diastolic 60–86; PULSE 61–84; RESP 16–18
[2017-08-11] MEDS: POTASSIUM CHLORIDE 40 MEQ in SOD CHLORIDE 0.45% 1,000 ML IV SCH ×3 (00:23→18:55)
[2017-08-11] MEDS: PANTOPRAZOLE (EC) 40 MG TAB PO SCH (05:33)
[2017-08-11 06:43] LABS: BASOPHILS % 0.1 % (0.0-2.0); EOSINOPHILS # 0.7 10^3/ul (0.0-0.5); EOSINOPHILS % 5.1 % (0.0-7.0); HEMATOCRIT 27.8 % (37.0-47.0); HEMOGLOBIN 9.1 g/dl (12.0-16.0); LYMPHOCYTES # 1.3 10^3/ul (0.8-2.9); LYMPHOCYTES % 10.1 % (15.0-51.0); MEAN CORPUSCULAR HEMOGLOBIN 33.5 pg (29.0-33.0); MEAN CORPUSCULAR HGB CONC 32.7 g/dl (32.0-37.0); MEAN CORPUSCULAR VOLUME 102.2 fl (82.0-101.0); MEAN PLATELET VOLUME 12.4 fl (7.4-10.4); MONOCYTE # 1.2 10^3/ul (0.3-0.9); MONOCYTES % 9.1 % (0.0-11.0); NEUTROPHIL # 9.6 10^3/ul (1.6-7.5); NEUTROPHILS % 75.2 % (39.0-77.0); PLATELET COUNT 126 10^3/UL (140-415); RED BLOOD COUNT 2.72 10^6/ul (4.20-5.40); RED CELL DISTRIBUTION WIDTH 14.7 % (11.5-14.5); WHITE BLOOD COUNT 12.7 10^3/ul (4.8-10.8)
[2017-08-11 07:31] LABS: CALCIUM 8.4 mg/dl (8.4-10.2); CREATININE 0.55 mg/dl (0.44-1.00); POTASSIUM 3.7 mmol/L (3.5-5.1)
[2017-08-11] MEDS: POTASSIUM CHLORIDE (SR) 20 MEQ TAB PO SCH ×3 (09:22→20:44)
[2017-08-11] MEDS: BALSAM PERU/CASTOR OIL 60 GM TUBE TOP SCH ×2 (09:22→20:45)
[2017-08-11] MEDS: NYSTATIN 30 GM POWDER BTL TOP SCH ×2 (09:22→20:45)
--- NOTE | 2017-08-11 13:42 | CONS ---
Date/Time of Note Date/Time of Note DATE: 08/11/17 TIME: 13:39 Assessment/Plan Assessment/Plan Additional Assessment/Plan Sepsis Encephalopathy, improved Sinus bradycardia, improved Preserved ejection fraction -Heart rate trend remains stable on telemetry past 24 hours. Continue to hold any AV jose blocking agents at the current time. No need for pacemaker at the current time. Consultation Date/Type/Reason Admit Date/Time Jul 24, 2017 at 11:53 Initial Consult Date 08/07/17 Type of Consultation: cv Referring Provider: PIPER SANTANA MD 24 HR Interval Summary Free Text/Dictation Patient denies dizziness, chest pain or shortness of breath Exam/Review of Systems Vital Signs Vitals Vital Signs Date Time Temp Pulse Resp B/P Pulse Ox O2 Delivery O2 Flow Rate FiO2 08/11/17 12:52 98.0 78 18 148/77 99 08/11/17 11:21 2.0 08/11/17 09:26 Nasal Cannula 08/11/17 01:11 27 Intake and Output 08/10/17 08/10/17 08/11/17 15:00 23:00 07:00 Intake Total 460 ml 900 ml 1700 ml Output Total 700 ml 2000 ml Balance 460 ml 200 ml -300 ml Exam Following commands, no apparent distress Constitutional: alert, obese Head: normocephalic Respiratory: other (Coarse breath sounds bilaterally, no wheezing) Cardiovascular: other (S1-S2 heard), regular rate and rhythm Gastrointestinal: bowel sounds, non-tender, soft Extremities: edema Results Result Diagram: 08/11/17 0550 08/11/17 0550 Results 24 hrs Laboratory Tests Test 08/11/17 05:50 White Blood Count 12.7 H Red Blood Count 2.72 L Hemoglobin 9.1 L Hematocrit 27.8 L Mean Corpuscular Volume 102.2 H Mean Corpuscular Hemoglobin 33.5 H Mean Corpuscular Hemoglobin Concent 32.7 Red Cell Distribution Width 14.7 H Platelet Count 126 L Mean Platelet Volume 12.4 H Neutrophils % 75.2 Lymphocytes % 10.1 L Monocytes % 9.1 Eosinophils % 5.1 Basophils % 0.1 Nucleated Red Blood Cells % 0.0 Neutrophils # 9.6 H Lymphocytes # 1.3 Monocytes # 1.2 H Eosinophils # 0.7 H Basophils # 0.0 Nucleated Red Blood Cells # 0.0 Sodium Level 141 Potassium Level 3.7 Chloride Level 109 Carbon Dioxide Level 27 Anion Gap 9 Blood Urea Nitrogen 9 Creatinine 0.55 Glucose Level 73 Calcium Level 8.4 Medications Medications Current Medications Morphine Sulfate (morphine) 2 mg Q4H PRN IV back pain Last administered on 15:04; Admin Dose 2 MG; Start 07/24/17 at 17:30 Ondansetron HCl (Zofran Inj) 4 mg Q6H PRN IV NAUSEA AND/OR VOMITING; Start at 19:00 Morphine Sulfate (morphine) 4 mg Q4H PRN IV PAIN LEVEL 7-10 Last administered on 08/10/17 08:37; Admin Dose 4 MG; Start 07/24/17 at 19:00 Miscellaneous Information 1 ea NOTE XX ; Start 07/25/17 at 10:30 Nystatin (Nystatin Powder) 1 applic BID TOP Last administered on 08/11/17 09: 22; Admin Dose 1 APPLIC; Start 07/25/17 at 13:00 IV Flush (NS 10 ml) 10 ml PRN PRN IV IV PROTOCOL; Start 07/25/17 at 17:30 Acetaminophen (Tylenol Liquid) 650 mg Q6H PRN NGT PAIN AND OR ELEVATED TEMP Last administered on 08/04/17 05:44; Admin Dose 650 MG; Start 07/27/17 at 20:30 Atropine Sulfate (Atropine (Syringe)) 0.5 mg PRN PRN IV DECREASED HEART RATE Last administered on 08/07/17 18:30; Admin Dose 0.5 MG; Start 08/01/17 at 10: 30 Miscellaneous Information (Pending [facility] Order For Wound Care) This patient kuhn... PRN PRN XX WOUND CARE; Start 08/07/17 at 19:30 Lactulose (Enulose) 30 gm Q4 PRN PO CONSTIPATIN Last administered on 12:07; Admin Dose 30 GM; Start 08/08/17 at 08:00 Pantoprazole 40 mg 40 mg DAILY@06 PO Last administered on 08/11/17 05:33; Admin Dose 40 MG; Start 08/09/17 at 06:00 Potassium Chloride/Sodium Chloride (KCl/1/2 NS) 1,020 ml @ 80 mls/hr [id number] IV Last administered on 08/11/17 00:23; Admin Dose 80 MLS/HR; Start at 10:00 Potassium Chloride (Klor-Con 20) 20 meq TID PO Last administered on 08/11/17 12:51; Admin Dose 20 MEQ; Start 08/09/17 at 09:00 Jaspreet Sands DO Aug 11, 2017 13:42
--- NOTE | 2017-08-11 14:31 | CONS ---
Date/Time of Note Date/Time of Note DATE: 08/11/17 TIME: 14:29 Assessment/Plan Assessment/Plan Chief Complaint/Hosp Course ID PROGRESS NOTE CURRENT ABX: OFF ABX DAY #2 s/p 14 days + ABX / Ceftriaxone DC'd 08/10 24H INTERVAL SUMMARY * Obese F, lying in bed w/back pain on pressure reducing mattress, sitter in the room * Awake, alert, responsive, O2 via NC without distress, no complaints * WBC stable @ 12.7 * LLEXT w/mild edema/chronic venous stasis dark hyperpigmentation changes Physical Exam Physical Exam Constitutional: VSS, NAD, no fevers, awake, calm HEENT: Unremarkable Neck: Supple Respiratory: Equal chest rise bilaterally, without dyspnea Cardiovascular: nl pulses, regular rate and rhythm Gastrointestinal: Soft, NT, super obese Extremities: Warm / chronic venous stasis hyperpigmentation changes ID ASSESSMENT 71 yo Obese F admit with: 1. Status post septic shock. * NO fevers, VSS * WBC still mildly elevated at 12.7 - overall improved 2. Status post Escherichia coli extended-spectrum beta-lactamase with bacteremia. 3. Resolving left lower extremity cellulitis. 4. Sinus bradycardia. 5. Status post acute kidney failure, resolved. 6. Back pain/L1 fx (- )MRSA Nares ABX ALLERGIES: SULFA CURRENT ABX: OFF ABX DAY #2 s/p 14 days + ABX / Ceftriaxone DC'd 08/10 ID RECOMMENDATIONS 1. Has completed course of ABX, for UTI/sepsis, monitor 2. May DC OFF ABX to SNF or home when cleared by primary as long as no evidence recurrent sepsis . Problems: Consultation Date/Type/Reason Admit Date/Time Jul 24, 2017 at 11:53 Initial Consult Date 08/07/17 Type of Consultation: ID Referring Provider: PIPER SANTANA MD Exam/Review of Systems Vital Signs Vitals Vital Signs Date Time Temp Pulse Resp B/P Pulse Ox O2 Delivery O2 Flow Rate FiO2 08/11/17 12:52 98.0 78 18 148/77 99 08/11/17 11:21 2.0 08/11/17 09:26 Nasal Cannula 08/11/17 01:11 27 Intake and Output 08/10/17 08/10/17 08/11/17 15:00 23:00 07:00 Intake Total 460 ml 900 ml 1700 ml Output Total 700 ml 2000 ml Balance 460 ml 200 ml -300 ml Results Result Diagram: 08/11/17 0550 08/11/17 0550 Results 24 hrs Laboratory Tests Test 08/11/17 05:50 White Blood Count 12.7 H Red Blood Count 2.72 L Hemoglobin 9.1 L Hematocrit 27.8 L Mean Corpuscular Volume 102.2 H Mean Corpuscular Hemoglobin 33.5 H Mean Corpuscular Hemoglobin Concent 32.7 Red Cell Distribution Width 14.7 H Platelet Count 126 L Mean Platelet Volume 12.4 H Neutrophils % 75.2 Lymphocytes % 10.1 L Monocytes % 9.1 Eosinophils % 5.1 Basophils % 0.1 Nucleated Red Blood Cells % 0.0 Neutrophils # 9.6 H Lymphocytes # 1.3 Monocytes # 1.2 H Eosinophils # 0.7 H Basophils # 0.0 Nucleated Red Blood Cells # 0.0 Sodium Level 141 Potassium Level 3.7 Chloride Level 109 Carbon Dioxide Level 27 Anion Gap 9 Blood Urea Nitrogen 9 Creatinine 0.55 Glucose Level 73 Calcium Level 8.4 Medications Medications Current Medications Morphine Sulfate (morphine) 2 mg Q4H PRN IV back pain Last administered on 15:04; Admin Dose 2 MG; Start 07/24/17 at 17:30 Ondansetron HCl (Zofran Inj) 4 mg Q6H PRN IV NAUSEA AND/OR VOMITING; Start at 19:00 Morphine Sulfate (morphine) 4 mg Q4H PRN IV PAIN LEVEL 7-10 Last administered on 08/10/17 08:37; Admin Dose 4 MG; Start 07/24/17 at 19:00 Miscellaneous Information 1 ea NOTE XX ; Start 07/25/17 at 10:30 Nystatin (Nystatin Powder) 1 applic BID TOP Last administered on 08/11/17 09: 22; Admin Dose 1 APPLIC; Start 07/25/17 at 13:00 IV Flush (NS 10 ml) 10 ml PRN PRN IV IV PROTOCOL; Start 07/25/17 at 17:30 Acetaminophen (Tylenol Liquid) 650 mg Q6H PRN NGT PAIN AND OR ELEVATED TEMP Last administered on 08/04/17 05:44; Admin Dose 650 MG; Start 07/27/17 at 20:30 Atropine Sulfate (Atropine (Syringe)) 0.5 mg PRN PRN IV DECREASED HEART RATE Last administered on 08/07/17 18:30; Admin Dose 0.5 MG; Start 08/01/17 at 10: 30 Miscellaneous Information (Pending [facility] Order For Wound Care) This patient kuhn... PRN PRN XX WOUND CARE; Start 08/07/17 at 19:30 Lactulose (Enulose) 30 gm Q4 PRN PO CONSTIPATIN Last administered on 12:07; Admin Dose 30 GM; Start 08/08/17 at 08:00 Pantoprazole 40 mg 40 mg DAILY@06 PO Last administered on 08/11/17 05:33; Admin Dose 40 MG; Start 08/09/17 at 06:00 Potassium Chloride/Sodium Chloride (KCl/1/2 NS) 1,020 ml @ 80 mls/hr [id number] IV Last administered on 08/11/17 00:23; Admin Dose 80 MLS/HR; Start at 10:00 Potassium Chloride (Klor-Con 20) 20 meq TID PO Last administered on 08/11/17 12:51; Admin Dose 20 MEQ; Start 08/09/17 at 09:00 MICHAEL NICOLE NP Aug 11, 2017 14:31
[2017-08-11] MEDS: morphine 2 MG INJ IV PRN (14:59)
--- NOTE | 2017-08-11 15:32 | PN ---
Date/Time of Note Date/Time of Note DATE: 08/11/17 TIME: 15:27 Assessment/Plan VTE Prophylaxis VTE Prophylaxis Intervention: anti-embolic stocking Lines/Catheters IV Catheter Type (from Nrs): PICC Line Central line still needed: Yes Urinary Cath still in place: Yes Reason Cath still needed: other (indicate) (Vertebral fracture) Assessment/Plan Problems: (1) Septic shock due to Escherichia coli Status: Resolved Comment: Patient has completed IV antibiotic therapy. (2) Altered consciousness Status: Acute Comment: Encephalopathy improving. Etiology still not clear. Probable multifactorial causes. (3) Sinus bradycardia Status: Chronic Comment: Appreciate Cardiology input. No pacemaker placement indicated at this time. (4) Acute renal failure (ARF) Status: Resolved Qualifiers: Acute renal failure type: with acute renal cortical necrosis Qualified Code : N17.1 - Acute renal failure with acute cortical necrosis (5) Compression fracture of L1 lumbar vertebra Status: Acute Comment: Still with pain. Still unable to obtain MRI. Will benefit from ARU. Subjective 24 Hr Interval Summary Free Text/Dictation Headache resolved. Still with back pain. Exam/Review of Systems Vital Signs Vitals Vital Signs Date Time Temp Pulse Resp B/P Pulse Ox O2 Delivery O2 Flow Rate FiO2 08/11/17 12:52 98.0 78 18 148/77 99 08/11/17 11:21 2.0 08/11/17 09:26 Nasal Cannula 08/11/17 01:11 27 Intake and Output 08/10/17 08/10/17 08/11/17 15:00 23:00 07:00 Intake Total 460 ml 900 ml 1700 ml Output Total 700 ml 2000 ml Balance 460 ml 200 ml -300 ml Exam Sleeping comfortably . Constitutional: other Results Result Diagram: 08/11/17 0550 08/11/17 0550 Results 24 hrs Laboratory Tests Test 08/11/17 05:50 White Blood Count 12.7 H Red Blood Count 2.72 L Hemoglobin 9.1 L Hematocrit 27.8 L Mean Corpuscular Volume 102.2 H Mean Corpuscular Hemoglobin 33.5 H Mean Corpuscular Hemoglobin Concent 32.7 Red Cell Distribution Width 14.7 H Platelet Count 126 L Mean Platelet Volume 12.4 H Neutrophils % 75.2 Lymphocytes % 10.1 L Monocytes % 9.1 Eosinophils % 5.1 Basophils % 0.1 Nucleated Red Blood Cells % 0.0 Neutrophils # 9.6 H Lymphocytes # 1.3 Monocytes # 1.2 H Eosinophils # 0.7 H Basophils # 0.0 Nucleated Red Blood Cells # 0.0 Sodium Level 141 Potassium Level 3.7 Chloride Level 109 Carbon Dioxide Level 27 Anion Gap 9 Blood Urea Nitrogen 9 Creatinine 0.55 Glucose Level 73 Calcium Level 8.4 Medications Medications Current Medications Morphine Sulfate (morphine) 2 mg Q4H PRN IV back pain Last administered on 14:59; Admin Dose 2 MG; Start 07/24/17 at 17:30 Ondansetron HCl (Zofran Inj) 4 mg Q6H PRN IV NAUSEA AND/OR VOMITING; Start at 19:00 Morphine Sulfate (morphine) 4 mg Q4H PRN IV PAIN LEVEL 7-10 Last administered on 08/10/17 08:37; Admin Dose 4 MG; Start 07/24/17 at 19:00 Miscellaneous Information 1 ea NOTE XX ; Start 07/25/17 at 10:30 Nystatin (Nystatin Powder) 1 applic BID TOP Last administered on 08/11/17 09: 22; Admin Dose 1 APPLIC; Start 07/25/17 at 13:00 IV Flush (NS 10 ml) 10 ml PRN PRN IV IV PROTOCOL; Start 07/25/17 at 17:30 Acetaminophen (Tylenol Liquid) 650 mg Q6H PRN NGT PAIN AND OR ELEVATED TEMP Last administered on 08/04/17 05:44; Admin Dose 650 MG; Start 07/27/17 at 20:30 Atropine Sulfate (Atropine (Syringe)) 0.5 mg PRN PRN IV DECREASED HEART RATE Last administered on 08/07/17 18:30; Admin Dose 0.5 MG; Start 08/01/17 at 10: 30 [facility] This patient kuhn... PRN PRN XX WOUND CARE; Start 08/07/17 at 19:30 Lactulose (Enulose) 30 gm Q4 PRN PO CONSTIPATIN Last administered on 12:07; Admin Dose 30 GM; Start 08/08/17 at 08:00 Pantoprazole 40 mg 40 mg DAILY@06 PO Last administered on 08/11/17 05:33; Admin Dose 40 MG; Start 08/09/17 at 06:00 Potassium Chloride/Sodium Chloride (KCl/1/2 NS) 1,020 ml @ 80 mls/hr [id number] IV Last administered on 08/11/17 00:23; Admin Dose 80 MLS/HR; Start at 10:00 Potassium Chloride (Klor-Con 20) 20 meq TID PO Last administered on 08/11/17 12:51; Admin Dose 20 MEQ; Start 08/09/17 at 09:00 MENA COELHO MD Aug 11, 2017 15:32
[2017-08-12] VITALS (13 sets, daily range): BP systolic 122–174; BP diastolic 67–92; PULSE 84–104; RESP 16–20
[2017-08-12] MEDS: PANTOPRAZOLE (EC) 40 MG TAB PO SCH (05:25)
[2017-08-12] MEDS: morphine 2 MG INJ IV PRN (10:17)
[2017-08-12] MEDS: BALSAM PERU/CASTOR OIL 60 GM TUBE TOP SCH ×2 (10:17→21:03)
[2017-08-12] MEDS: POTASSIUM CHLORIDE 20 MEQ POWDER FOR ORAL SOLN PO SCH ×3 (10:17→21:02)
[2017-08-12] MEDS: NYSTATIN 30 GM POWDER BTL TOP SCH ×2 (10:17→21:02)
[2017-08-12] MEDS: POTASSIUM CHLORIDE 40 MEQ in SOD CHLORIDE 0.45% 1,000 ML IV SCH (15:10)
--- NOTE | 2017-08-12 15:16 | PN ---
DATE: 08/12/2017 SUBJECTIVE: The patient is awake. Pleasantly confused and no distress. She is afebrile. No labs this morning. She is off antibiotics. PHYSICAL EXAMINATION: GENERAL: This is an obese, well-developed, elderly woman who is awake, in no distress. HEENT: Head atraumatic, normocephalic. Sclerae anicteric. Buccal mucosa dry. NECK: Supple. CHEST: Rise symmetrical. Breath sounds clear, diminished to bases. HEART: S1, S2. ABDOMEN: Soft, bowel tones present. EXTREMITIES: Without cyanosis. Left lower extremity with significant edema and erythema. ASSESSMENT: 1. Status post septic shock. 2. Status post urinary tract infection with bacteremia. 3. Status post respiratory failure, pneumonia. 4. Left lower extremity ongoing cellulitis, got worse after antibiotics discontinued. 5. Back pain/L1 fracture, ortho surgeon on case. PLAN: The patient remains stable. She is being followed by multiple consultants. We are going to restart her on antibiotics for lower extremity cellulitis. We will put her on oral doxycycline. Dictated By: ERICKA LEGER HEALTH COUNSELOR for [facility] Conf#: [id number] DID#: [id number]
[2017-08-12] MEDS ORDERED: hydrALAzine 20 MG INJ IV PRN (16:30)
--- NOTE | 2017-08-12 16:32 | CONS ---
Date/Time of Note Date/Time of Note DATE: 08/12/17 TIME: 16:28 Assessment/Plan Assessment/Plan Additional Assessment/Plan Sepsis Encephalopathy, improved Sinus bradycardia, improved Preserved ejection fraction Hypertension -Blood pressure trend on the higher side, will start Norvasc given recent acute kidney injury. As needed hydralazine will be ordered as well. Consultation Date/Type/Reason Admit Date/Time Jul 24, 2017 at 11:53 Initial Consult Date 08/07/17 Type of Consultation: cv Referring Provider: PIPER SANTANA MD 24 HR Interval Summary Free Text/Dictation Denies shortness of breath, chest pain, dizziness or palpitations Exam/Review of Systems Vital Signs Vitals Vital Signs Date Time Temp Pulse Resp B/P Pulse Ox O2 Delivery O2 Flow Rate FiO2 08/12/17 16:19 104 08/12/17 15:16 98.1 16 174/89 96 08/12/17 02:20 2.0 27 08/12/17 00:07 Nasal Cannula Intake and Output 08/11/17 08/11/17 08/12/17 15:00 23:00 07:00 Intake Total 700 ml 1080 ml Output Total 1000 ml 2500 ml Balance -300 ml -1420 ml Exam No apparent distress Constitutional: alert, obese, oriented Head: normocephalic Respiratory: other (Coarse breath sounds bilaterally, no wheezing) Cardiovascular: other (S1-S2 heard), regular rate and rhythm Gastrointestinal: bowel sounds, non-tender, soft Extremities: edema Results Result Diagram: 08/11/17 0550 08/11/17 0550 Medications Medications Current Medications Morphine Sulfate (morphine) 2 mg Q4H PRN IV back pain Last administered on 10:17; Admin Dose 2 MG; Start 07/24/17 at 17:30 Ondansetron HCl (Zofran Inj) 4 mg Q6H PRN IV NAUSEA AND/OR VOMITING; Start at 19:00 Morphine Sulfate (morphine) 4 mg Q4H PRN IV PAIN LEVEL 7-10 Last administered on 08/10/17 08:37; Admin Dose 4 MG; Start 07/24/17 at 19:00 Miscellaneous Information 1 ea NOTE XX ; Start 07/25/17 at 10:30 Nystatin (Nystatin Powder) 1 applic BID TOP Last administered on 08/12/17 10: 17; Admin Dose 1 APPLIC; Start 07/25/17 at 13:00 IV Flush (NS 10 ml) 10 ml PRN PRN IV IV PROTOCOL; Start 07/25/17 at 17:30 Acetaminophen (Tylenol Liquid) 650 mg Q6H PRN NGT PAIN AND OR ELEVATED TEMP Last administered on 08/04/17 05:44; Admin Dose 650 MG; Start 07/27/17 at 20:30 Atropine Sulfate (Atropine (Syringe)) 0.5 mg PRN PRN IV DECREASED HEART RATE Last administered on 08/07/17 18:30; Admin Dose 0.5 MG; Start 08/01/17 at 10: 30 Miscellaneous Information (Pending [facility] Order For Wound Care) This patient kuhn... PRN PRN XX WOUND CARE; Start 08/07/17 at 19:30 Lactulose (Enulose) 30 gm Q4 PRN PO CONSTIPATIN Last administered on 12:07; Admin Dose 30 GM; Start 08/08/17 at 08:00 Pantoprazole 40 mg 40 mg DAILY@06 PO Last administered on 08/12/17 05:25; Admin Dose 40 MG; Start 08/09/17 at 06:00 Potassium Chloride/Sodium Chloride (KCl/1/2 NS) 1,020 ml @ 80 mls/hr [id number] IV Last administered on 08/12/17 15:10; Admin Dose 80 MLS/HR; Start at 10:00 Potassium Chloride (Potassium Chloride Pwd/Soln) 20 meq TID PO Last administered on 08/12/17 15:10; Admin Dose 20 MEQ; Start 08/12/17 at 10:00 Doxycycline Hyclate (Vibramycin) 100 mg BID PO ; Start 08/12/17 at 21:00 Jaspreet Sands DO Aug 12, 2017 16:31
[2017-08-12] MEDS: AMLODIPINE 5 MG TAB PO SCH (17:31)
--- NOTE | 2017-08-12 18:31 | PN ---
Date/Time of Note Date/Time of Note DATE: 08/12/17 TIME: 18:28 Assessment/Plan VTE Prophylaxis VTE Prophylaxis Intervention: anti-embolic stocking Lines/Catheters IV Catheter Type (from Nrsg): PICC Line Urinary Cath still in place: Yes Subjective 24 Hr Interval Summary Free Text/Dictation remains alert, not clear if her insight to current problem is good, but she verbalized understanding of need to mobilize. still with back clotilde, difficulty progressing with p.t., but perhaps sl better today not brfady. bp trending up somewhat renal fx is nl, k now 3.7, repeat in am sepsis is resolved back pain, presumptive vert fx, same lungs clear, hr regular, obese abd, edema persists Musculoskeletal: back pain Exam/Review of Systems Vital Signs Vitals Vital Signs Date Time Temp Pulse Resp B/P Pulse Ox O2 Delivery O2 Flow Rate FiO2 08/12/17 16:19 104 08/12/17 15:16 98.1 16 174/89 96 08/12/17 02:20 2.0 27 08/12/17 00:07 Nasal Cannula Intake and Output 08/11/17 08/11/17 08/12/17 15:00 23:00 07:00 Intake Total 700 ml 1080 ml Output Total 1000 ml 2500 ml Balance -300 ml -1420 ml Results Result Diagram: 08/11/17 0550 08/11/17 0550 Medications Medications Current Medications Morphine Sulfate (morphine) 2 mg Q4H PRN IV back pain Last administered on 10:17; Admin Dose 2 MG; Start 07/24/17 at 17:30 Ondansetron HCl (Zofran Inj) 4 mg Q6H PRN IV NAUSEA AND/OR VOMITING; Start at 19:00 Morphine Sulfate (morphine) 4 mg Q4H PRN IV PAIN LEVEL 7-10 Last administered on 08/10/17 08:37; Admin Dose 4 MG; Start 07/24/17 at 19:00 Miscellaneous Information 1 ea NOTE XX ; Start 07/25/17 at 10:30 Nystatin (Nystatin Powder) 1 applic BID TOP Last administered on 08/12/17 10: 17; Admin Dose 1 APPLIC; Start 07/25/17 at 13:00 IV Flush (NS 10 ml) 10 ml PRN PRN IV IV PROTOCOL; Start 07/25/17 at 17:30 Acetaminophen (Tylenol Liquid) 650 mg Q6H PRN NGT PAIN AND OR ELEVATED TEMP Last administered on 08/04/17 05:44; Admin Dose 650 MG; Start 07/27/17 at 20:30 Atropine Sulfate (Atropine (Syringe)) 0.5 mg PRN PRN IV DECREASED HEART RATE Last administered on 08/07/17 18:30; Admin Dose 0.5 MG; Start 08/01/17 at 10: 30 Miscellaneous Information (Pending [facility] Order For Wound Care) This patient kuhn... PRN PRN XX WOUND CARE; Start 08/07/17 at 19:30 Lactulose (Enulose) 30 gm Q4 PRN PO CONSTIPATIN Last administered on 12:07; Admin Dose 30 GM; Start 08/08/17 at 08:00 Pantoprazole 40 mg 40 mg DAILY@06 PO Last administered on 08/12/17 05:25; Admin Dose 40 MG; Start 08/09/17 at 06:00 Potassium Chloride/Sodium Chloride (KCl/1/2 NS) 1,020 ml @ 80 mls/hr [id number] IV Last administered on 08/12/17 15:10; Admin Dose 80 MLS/HR; Start at 10:00 Potassium Chloride (Potassium Chloride Pwd/Soln) 20 meq TID PO Last administered on 08/12/17 15:10; Admin Dose 20 MEQ; Start 08/12/17 at 10:00 Doxycycline Hyclate (Vibramycin) 100 mg BID PO ; Start 08/12/17 at 21:00 Amlodipine Besylate (Norvasc) 5 mg DAILY PO Last administered on 08/12/17 17: 31; Admin Dose 5 MG; Start 08/12/17 at 16:30 Hydralazine HCl (Apresoline) 10 mg Q6H PRN IV SBP greater than 160; Start at 16:30 PIPER SANTANA MD Aug 12, 2017 18:31
[2017-08-12] MEDS ORDERED: FUROSEMIDE 40 MG INJ IV ONE (19:00)
[2017-08-12] MEDS: DOXYCYCLINE 100 MG TAB PO SCH (21:02)
[2017-08-13] VITALS (12 sets, daily range): BP systolic 116–155; BP diastolic 60–82; PULSE 95–120; RESP 18
[2017-08-13] MEDS: PANTOPRAZOLE (EC) 40 MG TAB PO SCH (06:05)
[2017-08-13] MEDS: POTASSIUM CHLORIDE 40 MEQ in SOD CHLORIDE 0.45% 1,000 ML IV SCH ×2 (06:05→15:30)
[2017-08-13 08:10] LABS: CALCIUM 8.4 mg/dl (8.4-10.2); CREATININE 0.66 mg/dl (0.44-1.00); POTASSIUM 3.3 mmol/L (3.5-5.1)
[2017-08-13] MEDS: DOXYCYCLINE 100 MG TAB PO SCH ×2 (09:36→21:42)
[2017-08-13] MEDS: POTASSIUM CHLORIDE 20 MEQ POWDER FOR ORAL SOLN PO SCH ×3 (09:37→21:42)
[2017-08-13] MEDS: morphine 2 MG INJ IV PRN (09:38)
[2017-08-13] MEDS: BALSAM PERU/CASTOR OIL 60 GM TUBE TOP SCH ×2 (09:42→21:44)
[2017-08-13] MEDS: NYSTATIN 30 GM POWDER BTL TOP SCH ×2 (09:42→21:43)
[2017-08-13] MEDS: AMLODIPINE 5 MG TAB PO SCH (09:42)
--- NOTE | 2017-08-13 14:34 | CONS ---
Date/Time of Note Date/Time of Note DATE: 08/13/17 TIME: 14:33 Consult Date/Type/Reason Admit Date/Time Jul 24, 2017 at 11:53 Initial Consult Date 07/25/17 Type of Consultation: ID Ordering Provider: PIPER SANTANA MD Objective Vital Signs Date Time Temp Pulse Resp B/P Pulse Ox O2 Delivery O2 Flow Rate FiO2 08/13/17 12:26 95 08/13/17 11:22 98.9 18 132/60 95 08/13/17 00:00 Nasal Cannula 2.0 08/12/17 02:20 27 Intake and Output 08/12/17 08/12/17 08/13/17 15:00 23:00 07:00 Intake Total 890 ml 770 ml Output Total 2100 ml 3500 ml Balance -1210 ml -2730 ml Results/Medications Result Diagram: 08/11/17 0550 08/13/17 0629 Results 24 hrs Laboratory Tests Test 08/13/17 06:29 Sodium Level 139 Potassium Level 3.3 L Chloride Level 103 Carbon Dioxide Level 25 Anion Gap 14 Blood Urea Nitrogen 7 Creatinine 0.66 Glucose Level 66 L Calcium Level 8.4 Medications Current Medications Morphine Sulfate (morphine) 2 mg Q4H PRN IV back pain Last administered on 09:38; Admin Dose 2 MG; Start 07/24/17 at 17:30 Ondansetron HCl (Zofran Inj) 4 mg Q6H PRN IV NAUSEA AND/OR VOMITING; Start at 19:00 Morphine Sulfate (morphine) 4 mg Q4H PRN IV PAIN LEVEL 7-10 Last administered on 08/10/17 08:37; Admin Dose 4 MG; Start 07/24/17 at 19:00 Miscellaneous Information 1 ea NOTE XX ; Start 07/25/17 at 10:30 Nystatin (Nystatin Powder) 1 applic BID TOP Last administered on 08/13/17 09: 42; Admin Dose 1 APPLIC; Start 07/25/17 at 13:00 IV Flush (NS 10 ml) 10 ml PRN PRN IV IV PROTOCOL; Start 07/25/17 at 17:30 Acetaminophen (Tylenol Liquid) 650 mg Q6H PRN NGT PAIN AND OR ELEVATED TEMP Last administered on 08/04/17 05:44; Admin Dose 650 MG; Start 07/27/17 at 20:30 Atropine Sulfate (Atropine (Syringe)) 0.5 mg PRN PRN IV DECREASED HEART RATE Last administered on 08/07/17 18:30; Admin Dose 0.5 MG; Start 08/01/17 at 10: 30 Miscellaneous Information ([facility] This patient kuhn... PRN PRN XX WOUND CARE; Start 08/07/17 at 19:30 Lactulose (Enulose) 30 gm Q4 PRN PO CONSTIPATIN Last administered on 12:07; Admin Dose 30 GM; Start 08/08/17 at 08:00 Pantoprazole 40 mg 40 mg DAILY@06 PO Last administered on 08/13/17 06:05; Admin Dose 40 MG; Start 08/09/17 at 06:00 Potassium Chloride/Sodium Chloride (KCl/1/2 NS) 1,020 ml @ 80 mls/hr [id number] IV Last administered on 08/13/17 06:05; Admin Dose 80 MLS/HR; Start at 10:00 Potassium Chloride (Potassium Chloride Pwd/Soln) 20 meq TID PO Last administered on 08/13/17 09:37; Admin Dose 20 MEQ; Start 08/12/17 at 10:00 Doxycycline Hyclate (Vibramycin) 100 mg BID PO Last administered on 08/13/17 09:36; Admin Dose 100 MG; Start 08/12/17 at 21:00 Amlodipine Besylate (Norvasc) 5 mg DAILY PO Last administered on 08/13/17 09: 42; Admin Dose 5 MG; Start 08/12/17 at 16:30 Hydralazine HCl (Apresoline) 10 mg Q6H PRN IV SBP greater than 160; Start at 16:30 Assessment/Plan Chief Complaint/Hosp Course SUBJECTIVE: No events overnight. Looks comfortable, no fevers . ANTIMICROBIALS: Doxycycline INDWELLINGS: [place] catheter, PICC line. PHYSICAL EXAMINATION: GENERAL: Well-developed, obese, elderly woman who is in no distress. HEENT: Head atraumatic, normocephalic. Sclerae anicteric. Buccal mucosa dry. NECK: Supple. CHEST: Rise symmetrical. Breath sounds diminished to bases. HEART: S1, S2. ABDOMEN: Soft, bowel tones present. EXTREMITIES: Without cyanosis. ASSESSMENT: 1. LLE cellulitis 2. Status post sepsis/Escherichia coli extended-spectrum beta-lactamase with bacteremia. 3. Sinus bradycardia. 4. Status post acute kidney failure, resolved. 5. Back pain/L1 fx==> ortho follows PLAN: Remains stable, continue present care, continue Doxycycline/LLE elevation Problems: ERICKA LEGER NP Aug 13, 2017 14:34
[2017-08-13] MEDS ORDERED: ACETAMINOPHEN 325 MG TAB PO PRN (15:00)
--- NOTE | 2017-08-13 16:43 | CONS ---
Date/Time of Note Date/Time of Note DATE: 08/13/17 TIME: 16:34 Assessment/Plan Assessment/Plan Additional Assessment/Plan Sepsis Acute decompensated systolic congestive heart failure Encephalopathy, improved History of sinus bradycardia Preserved ejection fraction Hypertension Paroxysmal atrial fibrillation -On review of telemetry, patient with brief episode of atrial fibrillation with heart rate on the higher side. Would start low-dose beta-jerrell given history of bradycardia and continue telemetry monitoring. Patient also with increased congestion on examination. Will stop IV fluids if no contraindication, gentle diuresis as renal function and blood pressure permits. Chest x-ray for the a.m. Consultation Date/Type/Reason Admit Date/Time Jul 24, 2017 at 11:53 Initial Consult Date 08/07/17 Type of Consultation: cv Referring Provider: PIPER SANTANA MD 24 HR Interval Summary Free Text/Dictation Patient denies palpitations or chest pain. Mild increased cough today Exam/Review of Systems Vital Signs Vitals Vital Signs Date Time Temp Pulse Resp B/P Pulse Ox O2 Delivery O2 Flow Rate FiO2 08/13/17 15:40 98.9 109 18 155/82 97 08/13/17 08:25 Nasal Cannula 2.0 08/12/17 02:20 27 Intake and Output 08/12/17 08/12/17 08/13/17 15:00 23:00 07:00 Intake Total 890 ml 770 ml Output Total 2100 ml 3500 ml Balance -1210 ml -2730 ml Exam Following commands, no apparent distress Constitutional: alert Head: normocephalic Respiratory: other (Coarse breath sounds bilaterally with scattered mild crackles more so at the left base) Cardiovascular: other (S1-S2 heard), regular rate and rhythm Gastrointestinal: bowel sounds, non-tender, soft Extremities: edema Results Result Diagram: 08/11/17 0550 08/13/17 0629 Results 24 hrs Laboratory Tests Test 08/13/17 06:29 Sodium Level 139 Potassium Level 3.3 L Chloride Level 103 Carbon Dioxide Level 25 Anion Gap 14 Blood Urea Nitrogen 7 Creatinine 0.66 Glucose Level 66 L Calcium Level 8.4 Medications Medications Current Medications Morphine Sulfate (morphine) 2 mg Q4H PRN IV back pain Last administered on t 09:38; Admin Dose 2 MG; Start 07/24/17 at 17:30 Ondansetron HCl (Zofran Inj) 4 mg Q6H PRN IV NAUSEA AND/OR VOMITING; Start at 19:00 Morphine Sulfate (morphine) 4 mg Q4H PRN IV PAIN LEVEL 7-10 Last administered on 08/10/17 08:37; Admin Dose 4 MG; Start 07/24/17 at 19:00 Miscellaneous Information 1 ea NOTE XX ; Start 07/25/17 at 10:30 Nystatin (Nystatin Powder) 1 applic BID TOP Last administered on 08/13/17 09: 42; Admin Dose 1 APPLIC; Start 07/25/17 at 13:00 IV Flush (NS 10 ml) 10 ml PRN PRN IV IV PROTOCOL; Start 07/25/17 at 17:30 Acetaminophen (Tylenol Liquid) 650 mg Q6H PRN NGT PAIN AND OR ELEVATED TEMP Last administered on 08/04/17 05:44; Admin Dose 650 MG; Start 07/27/17 at 20:30 Atropine Sulfate (Atropine (Syringe)) 0.5 mg PRN PRN IV DECREASED HEART RATE Last administered on 08/07/17 18:30; Admin Dose 0.5 MG; Start 08/01/17 at 10: 30 Miscellaneous Information (Pending [facility] Order For Wound Care) This patient kuhn... PRN PRN XX WOUND CARE; Start 08/07/17 at 19:30 Lactulose (Enulose) 30 gm Q4 PRN PO CONSTIPATIN Last administered on 12:07; Admin Dose 30 GM; Start 08/08/17 at 08:00 Pantoprazole 40 mg 40 mg DAILY@06 PO Last administered on 08/13/17 06:05; Admin Dose 40 MG; Start 08/09/17 at 06:00 Potassium Chloride/Sodium Chloride (KCl/1/2 NS) 1,020 ml @ 80 mls/hr [id number] IV Last administered on 08/13/17 06:05; Admin Dose 80 MLS/HR; Start at 10:00 Potassium Chloride (Potassium Chloride Pwd/Soln) 20 meq TID PO Last administered on 08/13/17 15:30; Admin Dose 20 MEQ; Start 08/12/17 at 10:00 Doxycycline Hyclate (Vibramycin) 100 mg BID PO Last administered on 08/13/17 09:36; Admin Dose 100 MG; Start 08/12/17 at 21:00 Amlodipine Besylate (Norvasc) 5 mg DAILY PO Last administered on 08/13/17 09: 42; Admin Dose 5 MG; Start 08/12/17 at 16:30 Hydralazine HCl (Apresoline) 10 mg Q6H PRN IV SBP greater than 160; Start at 16:30 Tramadol HCl (Ultram) 50 mg BID PRN PO pain; Start 08/13/17 at 15:00 Acetaminophen (Tylenol Tab) 650 mg Q6H PRN PO PAIN AND OR ELEVATED TEMP; Start 08/13/17 at 15:00 Jaspreet Sands DO Aug 13, 2017 16:43
[2017-08-13] MEDS ORDERED: POTASSIUM CHLORIDE 20 MEQ POWDER FOR ORAL SOLN PO ONE (17:00)
[2017-08-13] MEDS ORDERED: FUROSEMIDE 40 MG INJ IV ONE (17:00)
[2017-08-13] MEDS: METOPROLOL 25 MG TAB PO SCH (21:43)
[2017-08-14] VITALS (13 sets, daily range): BP systolic 104–170; BP diastolic 57–78; PULSE 62–106; RESP 18–21
[2017-08-14] MEDS: morphine 2 MG INJ IV PRN ×2 (03:17→09:30)
[2017-08-14] MEDS: PANTOPRAZOLE (EC) 40 MG TAB PO SCH (05:31)
[2017-08-14] MEDS ORDERED: FUROSEMIDE 20 MG INJ IV SCH (06:00)
[2017-08-14 07:28] LABS: BASOPHILS % 0.2 % (0.0-2.0); EOSINOPHILS # 0.7 10^3/ul (0.0-0.5); EOSINOPHILS % 5.3 % (0.0-7.0); HEMATOCRIT 31.5 % (37.0-47.0); HEMOGLOBIN 10.3 g/dl (12.0-16.0); LYMPHOCYTES # 1.7 10^3/ul (0.8-2.9); LYMPHOCYTES % 13.7 % (15.0-51.0); MEAN CORPUSCULAR HEMOGLOBIN 32.9 pg (29.0-33.0); MEAN CORPUSCULAR HGB CONC 32.7 g/dl (32.0-37.0); MEAN CORPUSCULAR VOLUME 100.6 fl (82.0-101.0); MEAN PLATELET VOLUME 11.2 fl (7.4-10.4); MONOCYTE # 1.3 10^3/ul (0.3-0.9); MONOCYTES % 10.1 % (0.0-11.0); NEUTROPHILS % 70.3 % (39.0-77.0); PLATELET COUNT 188 10^3/UL (140-415); RED BLOOD COUNT 3.13 10^6/ul (4.20-5.40); RED CELL DISTRIBUTION WIDTH 14.5 % (11.5-14.5); WHITE BLOOD COUNT 12.7 10^3/ul (4.8-10.8)
[2017-08-14 07:46] LABS: CALCIUM 8.9 mg/dl (8.4-10.2); CREATININE 0.63 mg/dl (0.44-1.00); POTASSIUM 3.6 mmol/L (3.5-5.1)
[2017-08-14] MEDS: AMLODIPINE 5 MG TAB PO SCH (09:27)
[2017-08-14] MEDS: POTASSIUM CHLORIDE 20 MEQ POWDER FOR ORAL SOLN PO SCH ×3 (09:27→21:00)
[2017-08-14] MEDS: DOXYCYCLINE 100 MG TAB PO SCH ×2 (09:28→22:26)
[2017-08-14] MEDS: METOPROLOL 25 MG TAB PO SCH ×2 (09:28→21:00)
[2017-08-14] MEDS: BALSAM PERU/CASTOR OIL 60 GM TUBE TOP SCH ×2 (09:28→22:30)
[2017-08-14] MEDS: NYSTATIN 30 GM POWDER BTL TOP SCH ×2 (09:28→22:31)
--- NOTE | 2017-08-14 09:34 | RADRPT ---
PROCEDURE: XR Chest 1 view. CLINICAL INDICATION: Shortness of breath. TECHNIQUE: AP views of the chest were obtained. COMPARISON: August 04, 2017 FINDINGS: The heart is large. Calcified atherosclerosis is noted in the aorta. Patchy infiltrates throughout the right lung are at the identified. Additional patchy infiltrates are seen in the left lower lobe. Mild interstitial prominence is seen in both lungs. Left-sided PICC line has its tip in the expecte d location of the distal superior vena cava. Osseous structures are intact. IMPRESSION: Cardiomegaly with calcified atherosclerosis in the aorta. Patchy infiltrates throughout the right lung and in the left lower lobe. Diffuse mild interstitial prominence in both lungs. Interstitial prominence could be chronic. RPTAT: AA .Dani Louise MD, Date Time Electronically viewed and signed by .Dani Louise MD, MD on 08/14/2017 09:34 .P/
[2017-08-14] MEDS ORDERED: FUROSEMIDE 40 MG INJ IV SCH (13:00)
--- NOTE | 2017-08-14 13:01 | CONS ---
Date/Time of Note Date/Time of Note DATE: 08/14/17 TIME: 12:59 Assessment/Plan Assessment/Plan Additional Assessment/Plan Chest x-ray was reviewed from today which is showing patchy ill without infiltrates which are suggestive of bilateral pulmonary edema. Assessment and recommendations; 1. Patient admitted with severe E. coli sepsis status post extubation. 2. E. coli UTI. Status post treatment. 3. Underlying morbid obesity. 4. Possibly pulmonary edema. 5. Left lower extremity cellulitis. Add Lasix 40 mg IV every 12 hours. Obtain follow-up chest x-ray in 24 hours. Consultation Date/Type/Reason Admit Date/Time Jul 24, 2017 at 11:53 Initial Consult Date 07/25/17 Type of Consultation: Pulmonary Referring Provider: PIPER SANTANA MD 24 HR Interval Summary Free Text/Dictation Patient's condition is stable. Complains of very minimal shortness of breath. Denies any chest pain. General exam; elderly woman, morbidly obese, currently in no distress. Awake and alert. Exam/Review of Systems Vital Signs Vitals Vital Signs Date Time Temp Pulse Resp B/P Pulse Ox O2 Delivery O2 Flow Rate FiO2 08/14/17 12:30 106 08/14/17 11:27 98.5 18 169/77 97 08/14/17 08:00 Nasal Cannula 2.0 08/12/17 02:20 27 Intake and Output 08/13/17 08/13/17 08/14/17 15:00 23:00 07:00 Intake Total 500 ml 150 ml Output Total 1000 ml 1350 ml Balance -500 ml -1200 ml Exam HEENT exam; supple neck, JVD difficult to see because of short neck. Patient has fair dentition. Pharynx is clear. Chest exam; diminished but clear breath sounds. S1-S2 audible, no murmurs. Regular rhythm. Abdomen exam; soft, protuberant. Nontender. No organomegaly. Bowel sounds audible. Extremity exam; no peripheral edema. ENGRAVER BLOCK exam; no focal deficit. Results Result Diagram: 08/14/17 0644 08/14/17 0644 Results 24 hrs Laboratory Tests Test 08/14/17 06:44 White Blood Count 12.7 H Red Blood Count 3.13 L Hemoglobin 10.3 L Hematocrit 31.5 L Mean Corpuscular Volume 100.6 Mean Corpuscular Hemoglobin 32.9 Mean Corpuscular Hemoglobin Concent 32.7 Red Cell Distribution Width 14.5 Platelet Count 188 # Mean Platelet Volume 11.2 H Neutrophils % 70.3 Lymphocytes % 13.7 L Monocytes % 10.1 Eosinophils % 5.3 Basophils % 0.2 Nucleated Red Blood Cells % 0.0 Neutrophils # 9.0 H Lymphocytes # 1.7 Monocytes # 1.3 H Eosinophils # 0.7 H Basophils # 0.0 Nucleated Red Blood Cells # 0.0 Sodium Level 140 Potassium Level 3.6 Chloride Level 102 Carbon Dioxide Level 30 Anion Gap 12 Blood Urea Nitrogen 8 Creatinine 0.63 Glucose Level 88 Calcium Level 8.9 Magnesium Level 1.4 L Medications Medications Current Medications Morphine Sulfate (morphine) 2 mg Q4H PRN IV back pain Last administered on 09:30; Admin Dose 2 MG; Start 07/24/17 at 17:30 Ondansetron HCl (Zofran Inj) 4 mg Q6H PRN IV NAUSEA AND/OR VOMITING; Start at 19:00 Morphine Sulfate (morphine) 4 mg Q4H PRN IV PAIN LEVEL 7-10 Last administered on 08/10/17 08:37; Admin Dose 4 MG; Start 07/24/17 at 19:00 Miscellaneous Information 1 ea NOTE XX ; Start 07/25/17 at 10:30 Nystatin (Nystatin Powder) 1 applic BID TOP Last administered on 08/14/17 09: 28; Admin Dose 1 APPLIC; Start 07/25/17 at 13:00 IV Flush (NS 10 ml) 10 ml PRN PRN IV IV PROTOCOL; Start 07/25/17 at 17:30 Acetaminophen (Tylenol Liquid) 650 mg Q6H PRN NGT PAIN AND OR ELEVATED TEMP Last administered on 08/04/17 05:44; Admin Dose 650 MG; Start 07/27/17 at 20:30 Atropine Sulfate (Atropine (Syringe)) 0.5 mg PRN PRN IV DECREASED HEART RATE Last administered on 08/07/17 18:30; Admin Dose 0.5 MG; Start 08/01/17 at 10: 30 Miscellaneous Information (Pending [facility] Order For Wound Care) This patient kuhn... PRN PRN XX WOUND CARE; Start 08/07/17 at 19:30 Lactulose (Enulose) 30 gm Q4 PRN PO CONSTIPATIN Last administered on 12:07; Admin Dose 30 GM; Start 08/08/17 at 08:00 Pantoprazole (Protonix Tab) 40 mg DAILY@06 PO Last administered on 08/14/17 05:31; Admin Dose 40 MG; Start 08/09/17 at 06:00 Potassium Chloride (Potassium Chloride Pwd/Soln) 20 meq TID PO Last administered on 08/14/17 12:22; Admin Dose 20 MEQ; Start 08/12/17 at 10:00 Doxycycline Hyclate (Vibramycin) 100 mg BID PO Last administered on 08/14/17 09:28; Admin Dose 100 MG; Start 08/12/17 at 21:00 Amlodipine Besylate (Norvasc) 5 mg DAILY PO Last administered on 08/14/17 09: 27; Admin Dose 5 MG; Start 08/12/17 at 16:30 Hydralazine HCl (Apresoline) 10 mg Q6H PRN IV SBP greater than 160; Start at 16:30 Tramadol HCl (Ultram) 50 mg BID PRN PO pain; Start 08/13/17 at 15:00 Acetaminophen (Tylenol Tab) 650 mg Q6H PRN PO PAIN AND OR ELEVATED TEMP; Start 08/13/17 at 15:00 Metoprolol Tartrate (Lopressor) 25 mg BID PO Last administered on 08/14/17 09 :28; Admin Dose 25 MG; Start 08/13/17 at 21:00 IVETTE SINGER Aug 14, 2017 13:01
--- NOTE | 2017-08-14 13:07 | CONS ---
Date/Time of Note Date/Time of Note DATE: 08/14/17 TIME: 13:05 Consult Date/Type/Reason Admit Date/Time Jul 24, 2017 at 11:53 Initial Consult Date 07/25/17 Type of Consultation: id Ordering Provider: PIPER SANTANA MD Objective Vital Signs Date Time Temp Pulse Resp B/P Pulse Ox O2 Delivery O2 Flow Rate FiO2 08/14/17 12:30 106 08/14/17 11:27 98.5 18 169/77 97 08/14/17 08:00 Nasal Cannula 2.0 08/12/17 02:20 27 Intake and Output 08/13/17 08/13/17 08/14/17 15:00 23:00 07:00 Intake Total 500 ml 150 ml Output Total 1000 ml 1350 ml Balance -500 ml -1200 ml Results/Medications Result Diagram: 08/14/17 0644 08/14/17 0644 Results 24 hrs Laboratory Tests Test 08/14/17 06:44 White Blood Count 12.7 H Red Blood Count 3.13 L Hemoglobin 10.3 L Hematocrit 31.5 L Mean Corpuscular Volume 100.6 Mean Corpuscular Hemoglobin 32.9 Mean Corpuscular Hemoglobin Concent 32.7 Red Cell Distribution Width 14.5 Platelet Count 188 # Mean Platelet Volume 11.2 H Neutrophils % 70.3 Lymphocytes % 13.7 L Monocytes % 10.1 Eosinophils % 5.3 Basophils % 0.2 Nucleated Red Blood Cells % 0.0 Neutrophils # 9.0 H Lymphocytes # 1.7 Monocytes # 1.3 H Eosinophils # 0.7 H Basophils # 0.0 Nucleated Red Blood Cells # 0.0 Sodium Level 140 Potassium Level 3.6 Chloride Level 102 Carbon Dioxide Level 30 Anion Gap 12 Blood Urea Nitrogen 8 Creatinine 0.63 Glucose Level 88 Calcium Level 8.9 Magnesium Level 1.4 L Medications Current Medications Morphine Sulfate (morphine) 2 mg Q4H PRN IV back pain Last administered on 09:30; Admin Dose 2 MG; Start 07/24/17 at 17:30 Ondansetron HCl (Zofran Inj) 4 mg Q6H PRN IV NAUSEA AND/OR VOMITING; Start at 19:00 Morphine Sulfate (morphine) 4 mg Q4H PRN IV PAIN LEVEL 7-10 Last administered on 08/10/17 08:37; Admin Dose 4 MG; Start 07/24/17 at 19:00 Miscellaneous Information 1 ea NOTE XX ; Start 07/25/17 at 10:30 Nystatin (Nystatin Powder) 1 applic BID TOP Last administered on 08/14/17 09: 28; Admin Dose 1 APPLIC; Start 07/25/17 at 13:00 IV Flush (NS 10 ml) 10 ml PRN PRN IV IV PROTOCOL; Start 07/25/17 at 17:30 Acetaminophen (Tylenol Liquid) 650 mg Q6H PRN NGT PAIN AND OR ELEVATED TEMP Last administered on 08/04/17 05:44; Admin Dose 650 MG; Start 07/27/17 at 20:30 Atropine Sulfate (Atropine (Syringe)) 0.5 mg PRN PRN IV DECREASED HEART RATE Last administered on 08/07/17 18:30; Admin Dose 0.5 MG; Start 08/01/17 at 10: 30 [facility]isc[facility] This patient kuhn... PRN PRN XX WOUND CARE; Start 08/07/17 at 19:30 Lactulose (Enulose) 30 gm Q4 PRN PO CONSTIPATIN Last administered on 12:07; Admin Dose 30 GM; Start 08/08/17 at 08:00 Pantoprazole (Protonix Tab) 40 mg DAILY@06 PO Last administered on 08/14/17 05:31; Admin Dose 40 MG; Start 08/09/17 at 06:00 Potassium Chloride (Potassium Chloride Pwd/Soln) 20 meq TID PO Last administered on 08/14/17 12:22; Admin Dose 20 MEQ; Start 08/12/17 at 10:00 Doxycycline Hyclate (Vibramycin) 100 mg BID PO Last administered on 08/14/17 09:28; Admin Dose 100 MG; Start 08/12/17 at 21:00 Amlodipine Besylate (Norvasc) 5 mg DAILY PO Last administered on 08/14/17 09: 27; Admin Dose 5 MG; Start 08/12/17 at 16:30 Hydralazine HCl (Apresoline) 10 mg Q6H PRN IV SBP greater than 160; Start at 16:30 Tramadol HCl (Ultram) 50 mg BID PRN PO pain; Start 08/13/17 at 15:00 Acetaminophen (Tylenol Tab) 650 mg Q6H PRN PO PAIN AND OR ELEVATED TEMP; Start 08/13/17 at 15:00 Metoprolol Tartrate (Lopressor) 25 mg BID PO Last administered on 08/14/17t 09 :28; Admin Dose 25 MG; Start 08/13/17 at 21:00 Assessment/Plan Chief Complaint/Hosp Course SUBJECTIVE: No events overnight. Awake, denies pain, looks comfortable, no fevers . ANTIMICROBIALS: Doxycycline INDWELLINGS: [place] catheter, PICC line. PHYSICAL EXAMINATION: GENERAL: Well-developed, obese, elderly woman who is in no distress. HEENT: Head atraumatic, normocephalic. Sclerae anicteric. Buccal mucosa dry. NECK: Supple. CHEST: Rise symmetrical. Breath sounds diminished to bases. HEART: S1, S2. ABDOMEN: Soft, bowel tones present. EXTREMITIES: Without cyanosis. ASSESSMENT: 1. LLE cellulitis 2. Status post sepsis/Escherichia coli extended-spectrum beta-lactamase with bacteremia. 3. Sinus bradycardia. 4. Status post acute kidney failure, resolved. 5. Back pain/L1 fx==> ortho follows 6. Pulmonary edema PLAN: Remains stable, LLE looks better, CXR noted===>per deion [place] consistent with fluid overload, continue present care, continue Doxycycline/LLE elevation Problems: ERICKA LEGER NP Aug 14, 2017 13:07
--- NOTE | 2017-08-14 13:12 | PN ---
Date/Time of Note Date/Time of Note DATE: 08/14/17 TIME: 13:09 Assessment/Plan VTE Prophylaxis VTE Prophylaxis Intervention: SCD's Lines/Catheters IV Catheter Type (from Nrsg): PICC Line Urinary Cath still in place: Yes Subjective 24 Hr Interval Summary Free Text/Dictation sepsis, renal failure resolved. potassium ok still some edema and pulm congestion, on bid diuresis now no sammie, but brief run af yesterday, none further, put on metoprolol thrombocytopenia resolved tolerated soft food, but not self feeding presumptive l1 fx with persistent pain and very slow to mobilize. 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, [facility], after the rhythm is stable Musculoskeletal: back pain Exam/Review of Systems Vital Signs Vitals Vital Signs Date Time Temp Pulse Resp B/P Pulse Ox O2 Delivery O2 Flow Rate FiO2 08/14/17 12:30 106 08/14/17 11:27 98.5 18 169/77 97 08/14/17 08:00 Nasal Cannula 2.0 08/12/17 02:20 27 Intake and Output 08/13/17 08/13/17 08/14/17 15:00 23:00 07:00 Intake Total 500 ml 150 ml Output Total 1000 ml 1350 ml Balance -500 ml -1200 ml Results Result Diagram: 08/14/17 0644 08/14/17 0644 Results 24 hrs Laboratory Tests Test 08/14/17 06:44 White Blood Count 12.7 H Red Blood Count 3.13 L Hemoglobin 10.3 L Hematocrit 31.5 L Mean Corpuscular Volume 100.6 Mean Corpuscular Hemoglobin 32.9 Mean Corpuscular Hemoglobin Concent 32.7 Red Cell Distribution Width 14.5 Platelet Count 188 # Mean Platelet Volume 11.2 H Neutrophils % 70.3 Lymphocytes % 13.7 L Monocytes % 10.1 Eosinophils % 5.3 Basophils % 0.2 Nucleated Red Blood Cells % 0.0 Neutrophils # 9.0 H Lymphocytes # 1.7 Monocytes # 1.3 H Eosinophils # 0.7 H Basophils # 0.0 Nucleated Red Blood Cells # 0.0 Sodium Level 140 Potassium Level 3.6 Chloride Level 102 Carbon Dioxide Level 30 Anion Gap 12 Blood Urea Nitrogen 8 Creatinine 0.63 Glucose Level 88 Calcium Level 8.9 Magnesium Level 1.4 L Medications Medications Current Medications Morphine Sulfate (morphine) 2 mg Q4H PRN IV back pain Last administered on 09:30; Admin Dose 2 MG; Start 07/24/17 at 17:30 Ondansetron HCl (Zofran Inj) 4 mg Q6H PRN IV NAUSEA AND/OR VOMITING; Start at 19:00 Morphine Sulfate (morphine) 4 mg Q4H PRN IV PAIN LEVEL 7-10 Last administered on 08/10/17 08:37; Admin Dose 4 MG; Start 07/24/17 at 19:00 Miscellaneous Information 1 ea NOTE XX ; Start 07/25/17 at 10:30 Nystatin (Nystatin Powder) 1 applic BID TOP Last administered on 08/14/17 09: 28; Admin Dose 1 APPLIC; Start 07/25/17 at 13:00 IV Flush (NS 10 ml) 10 ml PRN PRN IV IV PROTOCOL; Start 07/25/17 at 17:30 Acetaminophen (Tylenol Liquid) 650 mg Q6H PRN NGT PAIN AND OR ELEVATED TEMP Last administered on 08/04/17 05:44; Admin Dose 650 MG; Start 07/27/17 at 20:30 Atropine Sulfate (Atropine (Syringe)) 0.5 mg PRN PRN IV DECREASED HEART RATE Last administered on 08/07/17 18:30; Admin Dose 0.5 MG; Start 08/01/17 at 10: 30 Miscellaneous Information (Pending [facility] Order For Wound Care) This patient kuhn... PRN PRN XX WOUND CARE; Start 08/07/17 at 19:30 Lactulose (Enulose) 30 gm Q4 PRN PO CONSTIPATIN Last administered on 12:07; Admin Dose 30 GM; Start 08/08/17 at 08:00 Pantoprazole (Protonix Tab) 40 mg DAILY@06 PO Last administered on 08/14/17 05:31; Admin Dose 40 MG; Start 08/09/17 at 06:00 Potassium Chloride (Potassium Chloride Pwd/Soln) 20 meq TID PO Last administered on 08/14/17 12:22; Admin Dose 20 MEQ; Start 08/12/17 at 10:00 Doxycycline Hyclate (Vibramycin) 100 mg BID PO Last administered on 08/14/17 09:28; Admin Dose 100 MG; Start 08/12/17 at 21:00 Amlodipine Besylate (Norvasc) 5 mg DAILY PO Last administered on 08/14/17 09: 27; Admin Dose 5 MG; Start 08/12/17 at 16:30 Hydralazine HCl (Apresoline) 10 mg Q6H PRN IV SBP greater than 160; Start at 16:30 Tramadol HCl (Ultram) 50 mg BID PRN PO pain; Start 08/13/17 at 15:00 Acetaminophen (Tylenol Tab) 650 mg Q6H PRN PO PAIN AND OR ELEVATED TEMP; Start 08/13/17 at 15:00 Metoprolol Tartrate (Lopressor) 25 mg BID PO Last administered on 08/14/17 09 :28; Admin Dose 25 MG; Start 08/13/17 at 21:00 PIPER SANTANA MD Aug 14, 2017 13:12
--- NOTE | 2017-08-14 15:13 | CONS ---
Date/Time of Note Date/Time of Note DATE: 08/14/17 TIME: 15:11 Assessment/Plan Assessment/Plan Additional Assessment/Plan Sepsis Acute decompensated systolic congestive heart failure Encephalopathy, improved History of sinus bradycardia Preserved ejection fraction Hypertension Paroxysmal atrial fibrillation -lung exam improved, cont diuretics as BP and renal fxn permits. Remains SR on tele, cont BB. Suppl Mg and K. Consultation Date/Type/Reason Admit Date/Time Jul 24, 2017 at 11:53 Initial Consult Date 08/07/17 Type of Consultation: cv Referring Provider: PIPER SANTANA MD 24 HR Interval Summary Free Text/Dictation cough is better, no sob, palp Exam/Review of Systems Vital Signs Vitals Vital Signs Date Time Temp Pulse Resp B/P Pulse Ox O2 Delivery O2 Flow Rate FiO2 08/14/17 14:21 3.0 08/14/17 13:00 62 145/62 08/14/17 11:27 98.5 18 97 08/14/17 08:00 Nasal Cannula 08/12/17 02:20 27 Intake and Output 08/13/17 08/13/17 08/14/17 15:00 23:00 07:00 Intake Total 500 ml 150 ml Output Total 1000 ml 1350 ml Balance -500 ml -1200 ml Exam nad, follows commands Constitutional: alert, obese Head: normocephalic Respiratory: other (course bs, no wheeze) Cardiovascular: other (s1s2), regular rate and rhythm Gastrointestinal: bowel sounds, non-tender, soft Extremities: edema Results Result Diagram: 08/14/17 0644 08/14/17 0644 Results 24 hrs Laboratory Tests Test 08/14/17 06:44 White Blood Count 12.7 H Red Blood Count 3.13 L Hemoglobin 10.3 L Hematocrit 31.5 L Mean Corpuscular Volume 100.6 Mean Corpuscular Hemoglobin 32.9 Mean Corpuscular Hemoglobin Concent 32.7 Red Cell Distribution Width 14.5 Platelet Count 188 # Mean Platelet Volume 11.2 H Neutrophils % 70.3 Lymphocytes % 13.7 L Monocytes % 10.1 Eosinophils % 5.3 Basophils % 0.2 Nucleated Red Blood Cells % 0.0 Neutrophils # 9.0 H Lymphocytes # 1.7 Monocytes # 1.3 H Eosinophils # 0.7 H Basophils # 0.0 Nucleated Red Blood Cells # 0.0 Sodium Level 140 Potassium Level 3.6 Chloride Level 102 Carbon Dioxide Level 30 Anion Gap 12 Blood Urea Nitrogen 8 Creatinine 0.63 Glucose Level 88 Calcium Level 8.9 Magnesium Level 1.4 L Medications Medications Current Medications Morphine Sulfate (morphine) 2 mg Q4H PRN IV back pain Last administered on 09:30; Admin Dose 2 MG; Start 07/24/17 at 17:30 Ondansetron HCl (Zofran Inj) 4 mg Q6H PRN IV NAUSEA AND/OR VOMITING; Start at 19:00 Morphine Sulfate (morphine) 4 mg Q4H PRN IV PAIN LEVEL 7-10 Last administered on 08/10/17 08:37; Admin Dose 4 MG; Start 07/24/17 at 19:00 Miscellaneous Information 1 ea NOTE XX ; Start 07/25/17 at 10:30 Nystatin (Nystatin Powder) 1 applic BID TOP Last administered on 08/14/17 09: 28; Admin Dose 1 APPLIC; Start 07/25/17 at 13:00 IV Flush (NS 10 ml) 10 ml PRN PRN IV IV PROTOCOL; Start 07/25/17 at 17:30 Acetaminophen (Tylenol Liquid) 650 mg Q6H PRN NGT PAIN AND OR ELEVATED TEMP Last administered on 08/04/17 05:44; Admin Dose 650 MG; Start 07/27/17 at 20:30 Atropine Sulfate (Atropine (Syringe)) 0.5 mg PRN PRN IV DECREASED HEART RATE Last administered on 08/07/17 18:30; Admin Dose 0.5 MG; Start 08/01/17 at 10: 30 Miscellaneous Information [facility] This patient kuhn... PRN PRN XX WOUND CARE; Start 08/07/17 at 19:30 Lactulose (Enulose) 30 gm Q4 PRN PO CONSTIPATIN Last administered on 12:07; Admin Dose 30 GM; Start 08/08/17 at 08:00 Pantoprazole (Protonix Tab) 40 mg DAILY@06 PO Last administered on 08/14/17 05:31; Admin Dose 40 MG; Start 08/09/17 at 06:00 Potassium Chloride (Potassium Chloride Pwd/Soln) 20 meq TID PO Last administered on 08/14/17 12:22; Admin Dose 20 MEQ; Start 08/12/17 at 10:00 Doxycycline Hyclate (Vibramycin) 100 mg BID PO Last administered on 08/14/17 09:28; Admin Dose 100 MG; Start 08/12/17 at 21:00 Amlodipine Besylate (Norvasc) 5 mg DAILY PO Last administered on 08/14/17 09: 27; Admin Dose 5 MG; Start 08/12/17 at 16:30 Hydralazine HCl (Apresoline) 10 mg Q6H PRN IV SBP greater than 160; Start at 16:30 Tramadol HCl (Ultram) 50 mg BID PRN PO pain; Start 08/13/17 at 15:00 Acetaminophen (Tylenol Tab) 650 mg Q6H PRN PO PAIN AND OR ELEVATED TEMP; Start 08/13/17 at 15:00 Metoprolol Tartrate (Lopressor) 25 mg BID PO Last administered on 08/14/17 09 :28; Admin Dose 25 MG; Start 08/13/17 at 21:00 Jaspreet Sands DO Aug 14, 2017 15:13
[2017-08-14] MEDS ORDERED: MAGNESIUM SULFATE 3 GM in SOD CHLORIDE 0.9% 100 ML IVPB ONE (15:30)
[2017-08-14] MEDS ORDERED: POTASSIUM CHLORIDE 20 MEQ POWDER FOR ORAL SOLN PO ONE ×2 (15:30→21:00)
[2017-08-14] MEDS: FUROSEMIDE 40 MG INJ IV SCH (17:08)
[2017-08-15] VITALS (11 sets, daily range): BP systolic 103–139; BP diastolic 53–60; PULSE 85–100; RESP 18–20
[2017-08-15] MEDS: PANTOPRAZOLE (EC) 40 MG TAB PO SCH (06:38)
[2017-08-15] MEDS: FUROSEMIDE 40 MG INJ IV SCH ×2 (06:38→17:03)
[2017-08-15 07:46] LABS: BASOPHILS % 0.2 % (0.0-2.0); EOSINOPHILS # 0.5 10^3/ul (0.0-0.5); EOSINOPHILS % 3.9 % (0.0-7.0); HEMATOCRIT 30.1 % (37.0-47.0); HEMOGLOBIN 9.6 g/dl (12.0-16.0); LYMPHOCYTES # 1.6 10^3/ul (0.8-2.9); LYMPHOCYTES % 12.3 % (15.0-51.0); MEAN CORPUSCULAR HEMOGLOBIN 32.5 pg (29.0-33.0); MEAN CORPUSCULAR HGB CONC 31.9 g/dl (32.0-37.0); MEAN PLATELET VOLUME 11.5 fl (7.4-10.4); MONOCYTE # 1.2 10^3/ul (0.3-0.9); NEUTROPHIL # 9.4 10^3/ul (1.6-7.5); NEUTROPHILS % 74.1 % (39.0-77.0); PLATELET COUNT 199 10^3/UL (140-415); RED BLOOD COUNT 2.95 10^6/ul (4.20-5.40); RED CELL DISTRIBUTION WIDTH 14.6 % (11.5-14.5); WHITE BLOOD COUNT 12.7 10^3/ul (4.8-10.8)
--- NOTE | 2017-08-15 07:47 | RADRPT ---
PROCEDURE: XR Chest. CLINICAL INDICATION: Congestive heart failure . TECHNIQUE: Single frontal chest x-ray. COMPARISON: 08/14/2017 FINDINGS: There is a left arm PICC line in place with tip in the superior vena cava. . Use bilateral interstit ial infiltrates appear improved. There is increased left basilar atelectasis or consolidation. Low l piedad volumes with cardiomegaly and hilar vascular congestion is unchanged.. Calcific atherosclerosi s of the aorta is present.. The osseous structures are intact. IMPRESSION: Left arm PICC line in place. Low lung volumes with cardiomegaly and hilar congestion unchanged. Decreased diffuse bilateral interstitial infiltrates. Increased left basilar atelectasis or consolidation.. RPTAT: QQ .Yoel Montez MD, MD Date Time Electronically viewed and signed by .Yoel Montez MD, on 08/15/2017 07:47 .L/
[2017-08-15 08:15] LABS: CALCIUM 9.1 mg/dl (8.4-10.2); CREATININE 0.72 mg/dl (0.44-1.00); POTASSIUM 3.7 mmol/L (3.5-5.1)
[2017-08-15] MEDS: DOXYCYCLINE 100 MG TAB PO SCH ×2 (08:54→21:15)
[2017-08-15] MEDS: AMLODIPINE 5 MG TAB PO SCH (08:54)
[2017-08-15] MEDS: NYSTATIN 30 GM POWDER BTL TOP SCH ×2 (08:54→21:15)
[2017-08-15] MEDS: METOPROLOL 25 MG TAB PO SCH ×2 (08:54→21:16)
[2017-08-15] MEDS: POTASSIUM CHLORIDE 20 MEQ POWDER FOR ORAL SOLN PO SCH ×3 (08:54→21:15)
[2017-08-15] MEDS: BALSAM PERU/CASTOR OIL 60 GM TUBE TOP SCH ×2 (08:55→21:17)
--- NOTE | 2017-08-15 11:46 | CONS ---
Date/Time of Note Date/Time of Note DATE: 08/15/17 TIME: 11:44 Assessment/Plan Assessment/Plan Additional Assessment/Plan Sepsis Acute decompensated systolic congestive heart failure Encephalopathy, improved History of sinus bradycardia Preserved ejection fraction Hypertension Paroxysmal atrial fibrillation -Chest x-ray today with less pulmonary vascular congestion with increased possible atelectasis versus consolidation. Patient is coughing and appears wet but not very productive. Would consider nebulizer treatments but of beta agonists to be used, would prefer Xopenex. Continue IV diuretics as renal function and blood pressure permits. Heart rate trend remains stable on telemetry. Will order additional potassium supplementation today. Consultation Date/Type/Reason Admit Date/Time Jul 24, 2017 at 11:53 Initial Consult Date 08/07/17 Type of Consultation: cv Referring Provider: PIPER SANTANA MD 24 HR Interval Summary Free Text/Dictation Denies shortness of breath, cough is better today, denies palpitations or dizziness Exam/Review of Systems Vital Signs Vitals Vital Signs Date Time Temp Pulse Resp B/P Pulse Ox O2 Delivery O2 Flow Rate FiO2 08/15/17 11:34 98.1 88 20 121/59 95 08/15/17 08:15 Nasal Cannula 2.0 08/12/17 02:20 27 Intake and Output 08/14/17 08/14/17 08/15/17 15:00 23:00 07:00 Intake Total 800 ml Output Total 700 ml Balance 100 ml Exam Follows commands, no apparent distress, coughing at times during examination Constitutional: alert Head: normocephalic Respiratory: other (Coarse breath sounds bilaterally with scattered rhonchi, minimal and expiratory wheezing) Cardiovascular: other (S1-S2 heard), regular rate and rhythm Gastrointestinal: bowel sounds, non-tender, soft Extremities: edema Results Result Diagram: 08/15/1723 08/15/1723 Results 24 hrs Laboratory Tests Test 08/15/17 06:23 White Blood Count 12.7 H Red Blood Count 2.95 L Hemoglobin 9.6 L Hematocrit 30.1 L Mean Corpuscular Volume 102.0 H Mean Corpuscular Hemoglobin 32.5 Mean Corpuscular Hemoglobin Concent 31.9 L Red Cell Distribution Width 14.6 H Platelet Count 199 Mean Platelet Volume 11.5 H Neutrophils % 74.1 Lymphocytes % 12.3 L Monocytes % 9.0 Eosinophils % 3.9 Basophils % 0.2 Nucleated Red Blood Cells % 0.0 Neutrophils # 9.4 H Lymphocytes # 1.6 Monocytes # 1.2 H Eosinophils # 0.5 Basophils # 0.0 Nucleated Red Blood Cells # 0.0 Sodium Level 142 Potassium Level 3.7 Chloride Level 104 Carbon Dioxide Level 31 Anion Gap 11 Blood Urea Nitrogen 13 Creatinine 0.72 Glucose Level 90 Calcium Level 9.1 Magnesium Level 2.0 Medications Medications Current Medications Morphine Sulfate (morphine) 2 mg Q4H PRN IV back pain Last administered on 09:30; Admin Dose 2 MG; Start 07/24/17 at 17:30 Ondansetron HCl (Zofran Inj) 4 mg Q6H PRN IV NAUSEA AND/OR VOMITING; Start at 19:00 Morphine Sulfate (morphine) 4 mg Q4H PRN IV PAIN LEVEL 7-10 Last administered on 08/10/17 08:37; Admin Dose 4 MG; Start 07/24/17 at 19:00 Miscellaneous Information 1 ea NOTE XX ; Start 07/25/17 at 10:30 Nystatin (Nystatin Powder) 1 applic BID TOP Last administered on 08/15/17 08: 54; Admin Dose 1 APPLIC; Start 07/25/17 at 13:00 IV Flush (NS 10 ml) 10 ml PRN PRN IV IV PROTOCOL; Start 07/25/17 at 17:30 Acetaminophen (Tylenol Liquid) 650 mg Q6H PRN NGT PAIN AND OR ELEVATED TEMP Last administered on 08/04/17 05:44; Admin Dose 650 MG; Start 07/27/17 at 20:30 Atropine Sulfate (Atropine (Syringe)) 0.5 mg PRN PRN IV DECREASED HEART RATE Last administered on 08/07/17 18:30; Admin Dose 0.5 MG; Start 08/01/17 at 10: 30 Miscellaneous Information (Pending [facility] Order For Wound Care) This patient kuhn... PRN PRN XX WOUND CARE; Start 08/07/17 at 19:30 Lactulose (Enulose) 30 gm Q4 PRN PO CONSTIPATIN Last administered on 12:07; Admin Dose 30 GM; Start 08/08/17 at 08:00 Pantoprazole (Protonix Tab) 40 mg DAILY@06 PO Last administered on 08/15/17 06:38; Admin Dose 40 MG; Start 08/09/17 at 06:00 Potassium Chloride (Potassium Chloride Pwd/Soln) 20 meq TID PO Last administered on 08/15/17 08:54; Admin Dose 20 MEQ; Start 08/12/17 at 10:00 Doxycycline Hyclate (Vibramycin) 100 mg BID PO Last administered on 08/15/17 08:54; Admin Dose 100 MG; Start 08/12/17 at 21:00 Amlodipine Besylate (Norvasc) 5 mg DAILY PO Last administered on 08/15/17 08: 54; Admin Dose 5 MG; Start 08/12/17 at 16:30 Hydralazine HCl (Apresoline) 10 mg Q6H PRN IV SBP greater than 160 Last administered on 08/14/17 16:30; Admin Dose 10 MG; Start 08/12/17 at 16:30 Tramadol HCl (Ultram) 50 mg BID PRN PO pain; Start 08/13/17 at 15:00 Acetaminophen (Tylenol Tab) 650 mg Q6H PRN PO PAIN AND OR ELEVATED TEMP; Start 08/13/17 at 15:00 Metoprolol Tartrate (Lopressor) 25 mg BID PO Last administered on 08/15/17 08 :54; Admin Dose 25 MG; Start 08/13/17 at 21:00 Jaspreet Sands DO Aug 15, 2017 11:46
[2017-08-15] MEDS ORDERED: POTASSIUM CHLORIDE 20 MEQ POWDER FOR ORAL SOLN PO ONE (12:00)
--- NOTE | 2017-08-15 13:41 | PN ---
Date/Time of Note Date/Time of Note DATE: 08/15/17 TIME: 13:34 Assessment/Plan VTE Prophylaxis VTE Prophylaxis Intervention: SCD's Lines/Catheters IV [facility] PICC Line Central line still needed: Yes Urinary Cath still in place: Yes Reason Cath still needed: skin wounds contaminated by urine Assessment/Plan Problems: (1) UTI (urinary tract infection) Status: Acute Comment: Continue doxycycline Qualifiers: Urinary tract infection type: acute cystitis Hematuria presence: without hematuria Qualified Code: N30.00 - Acute cystitis without hematuria (2) Septic shock due to Escherichia coli Status: Resolved (3) Compression fracture of L1 lumbar vertebra Status: Acute Comment: Plan to send patient to outpatient rehab unit when ready for discharge (4) Sinus bradycardia Status: Chronic Comment: Cardiology following. Defer to their management. (5) Altered breathing pattern Status: Acute Comment: Chest x-ray shows less congestion and more atelectasis. Patient already receiving furosemide IV twice daily. Cardiology does not see need to increase. However, breath sounds sound very congested although patient is asymptomatic. Will order incentive spirometry and chest physiotherapy to improve clearing of pulmonary secretions. Subjective 24 Hr Interval Summary Constitutional: improved, no complaints, requiring O2 Respiratory: no complaints, other (But RN reports patient sounds congested), No shortness of breath Cardiovascular: no complaints Gastrointestinal: no complaints Genitourinary: no complaints Musculoskeletal: back pain Neurologic: no complaints Exam/Review of Systems Vital Signs Vitals VS - Last 72 Hours, by Label Date Time Temp Pulse Resp B/P Pulse Ox O2 Delivery O2 Flow Rate FiO2 08/15/17 12:24 85 08/15/17 11:34 98.1 88 20 121/59 95 08/15/17 08:19 100 08/15/17 08:15 Nasal Cannula 2.0 08/15/17 07:08 98.2 99 19 113/57 97 08/15/17 04:23 92 08/15/17 04:07 98.6 70 18 108/60 98 08/15/17 00:05 98.4 96 18 106/53 94 08/15/17 00:02 3.0 08/15/17 00:00 Nasal Cannula 2.0 08/15/17 00:00 94 08/14/17 20:44 90 08/14/17 20:35 3.0 08/14/17 20:06 98.6 89 18 104/57 96 08/14/17 20:00 Nasal Cannula 2.0 08/14/17 16:55 103 08/14/17 15:26 99.5 100 18 170/78 93 08/14/17 14:21 3.0 08/14/17 13:00 62 145/62 08/14/17 12:30 106 08/14/17 11:27 98.5 104 18 169/77 97 08/14/17 08:52 96 08/14/17 08:00 Nasal Cannula 2.0 08/14/17 07:53 99.5 99 19 132/64 94 08/14/17 06:08 2.0 08/14/17 04:03 85 08/14/17 04:00 98.4 91 20 128/59 96 08/14/17 00:05 90 08/14/17 00:00 98.4 83 21 132/71 97 08/14/17 00:00 Nasal Cannula 2.0 08/13/17 23:55 2.0 08/13/17 20:03 120 08/13/17 20:00 98.5 111 18 116/68 96 08/13/17 20:00 Nasal Cannula 2.0 08/13/17 16:39 103 08/13/17 15:40 98.9 109 18 155/82 97 08/13/17 12:26 95 08/13/17 11:22 98.9 98 18 132/60 95 08/13/17 08:25 Nasal Cannula 2.0 08/13/17 08:11 104 08/13/17 08:02 99.4 109 18 151/73 97 08/13/17 04:03 110 08/13/17 03:38 98.0 104 18 150/77 98 08/13/17 00:12 98.5 105 18 145/70 99 08/13/17 00:03 95 08/13/17 00:00 Nasal Cannula 2.0 08/12/17 20:05 90 08/12/17 20:00 Nasal Cannula 2.0 08/12/17 19:45 98.5 90 18 156/77 98 08/12/17 16:19 104 08/12/17 15:16 98.1 76 16 174/89 96 Vital Signs Date Time Temp Pulse Resp B/P Pulse Ox O2 Delivery O2 Flow Rate FiO2 08/15/17 12:24 85 08/15/17 11:34 98.1 20 121/59 95 08/15/17 08:15 Nasal Cannula 2.0 08/12/17 02:20 27 Intake and Output 08/14/17 08/14/17 08/15/17 15:00 23:00 07:00 Intake Total 800 ml Output Total 700 ml Balance 100 ml Exam Constitutional: alert, obese, oriented Psych: nl mood/affect, no complaints Respiratory: congested cough, crackles/rales Cardiovascular: edema, regular rate and rhythm, No murmurs/extra sounds, No rub Gastrointestinal: nl liver, spleen, soft, tender (Mild tenderness to palpation over epigastrium, nontender percussion), No non-tender Musculoskeletal: nl extremities to inspection Extremities: edema (1+ right lower extremity), normal pulses, No clubbing, No cyanosis Neurological: RESOURCE ECONOMIST II-XII intact, nl mental status, nl speech, nl strength Results Result Diagram: 08/15/1762208/15/17 0623 Results 24 hrs Laboratory Tests Test 08/15/17 06:23 White Blood Count 12.7 H Red Blood Count 2.95 L Hemoglobin 9.6 L Hematocrit 30.1 L Mean Corpuscular Volume 102.0 H Mean Corpuscular Hemoglobin 32.5 Mean Corpuscular Hemoglobin Concent 31.9 L Red Cell Distribution Width 14.6 H Platelet Count 199 Mean Platelet Volume 11.5 H Neutrophils % 74.1 Lymphocytes % 12.3 L Monocytes % 9.0 Eosinophils % 3.9 Basophils % 0.2 Nucleated Red Blood Cells % 0.0 Neutrophils # 9.4 H Lymphocytes # 1.6 Monocytes # 1.2 H Eosinophils # 0.5 Basophils # 0.0 Nucleated Red Blood Cells # 0.0 Sodium Level 142 Potassium Level 3.7 Chloride Level 104 Carbon Dioxide Level 31 Anion Gap 11 Blood Urea Nitrogen 13 Creatinine 0.72 Glucose Level 90 Calcium Level 9.1 Magnesium Level 2.0 Medications Medications Current Medications Morphine Sulfate (morphine) 2 mg Q4H PRN IV back pain Last administered on t 09:30; Admin Dose 2 MG; Start 07/24/17 at 17:30 Ondansetron HCl (Zofran Inj) 4 mg Q6H PRN IV NAUSEA AND/OR VOMITING; Start at 19:00 Morphine Sulfate (morphine) 4 mg Q4H PRN IV PAIN LEVEL 7-10 Last administered on 08/10/17 08:37; Admin Dose 4 MG; Start 07/24/17 at 19:00 Miscellaneous Information 1 ea NOTE XX ; Start 07/25/17 at 10:30 Nystatin (Nystatin Powder) 1 applic BID TOP Last administered on 08/15/17 08: 54; Admin Dose 1 APPLIC; Start 07/25/17 at 13:00 IV Flush (NS 10 ml) 10 ml PRN PRN IV IV PROTOCOL; Start 07/25/17 at 17:30 Acetaminophen (Tylenol Liquid) 650 mg Q6H PRN NGT PAIN AND OR ELEVATED TEMP Last administered on 08/04/17 05:44; Admin Dose 650 MG; Start 07/27/17 at 20:30 Atropine Sulfate (Atropine (Syringe)) 0.5 mg PRN PRN IV DECREASED HEART RATE Last administered on 08/07/17 18:30; Admin Dose 0.5 MG; Start 08/01/17 at 10: 30 Miscellaneous Information (Pending [facility] Order For Wound Care) This patient kuhn... PRN PRN XX WOUND CARE; Start 08/07/17 at 19:30 Lactulose (Enulose) 30 gm Q4 PRN PO CONSTIPATIN Last administered on 12:07; Admin Dose 30 GM; Start 08/08/17 at 08:00 Pantoprazole (Protonix Tab) 40 mg DAILY@06 PO Last administered on 08/15/17 06:38; Admin Dose 40 MG; Start 08/09/17 at 06:00 Potassium Chloride (Potassium Chloride Pwd/Soln) 20 meq TID PO Last administered on 08/15/17 08:54; Admin Dose 20 MEQ; Start 08/12/17 at 10:00 Doxycycline Hyclate (Vibramycin) 100 mg BID PO Last administered on 08/15/17 08:54; Admin Dose 100 MG; Start 08/12/17 at 21:00 Amlodipine Besylate (Norvasc) 5 mg DAILY PO Last administered on 08/15/17 08: 54; Admin Dose 5 MG; Start 08/12/17 at 16:30 Hydralazine HCl (Apresoline) 10 mg Q6H PRN IV SBP greater than 160 Last administered on 08/14/17 16:30; Admin Dose 10 MG; Start 08/12/17 at 16:30 Tramadol HCl (Ultram) 50 mg BID PRN PO pain; Start 08/13/17 at 15:00 Acetaminophen (Tylenol Tab) 650 mg Q6H PRN PO PAIN AND OR ELEVATED TEMP; Start 08/13/17 at 15:00 Metoprolol Tartrate (Lopressor) 25 mg BID PO Last administered on 08/15/17 08 :54; Admin Dose 25 MG; Start 08/13/17 at 21:00 SHAVON SALAMANCA MD Aug 15, 2017 13:41
[2017-08-15] MEDS: LACTULOSE 30ML CUP PO PRN (17:02)
--- NOTE | 2017-08-15 22:23 | CONS ---
Date/Time of Note Date/Time of Note DATE: 08/15/17 TIME: 22:22 Consult Date/Type/Reason Admit Date/Time Jul 24, 2017 at 11:53 Initial Consult Date 07/25/17 Type of Consultation: ID Ordering Provider: PIPRE SANTANA MD Objective Vital Signs Date Time Temp Pulse Resp B/P Pulse Ox O2 Delivery O2 Flow Rate FiO2 08/15/17 21:40 3.0 08/15/17 20:00 96 08/15/17 20:00 98.3 18 139/60 95 08/15/17 08:15 Nasal Cannula 08/12/17 02:20 27 Intake and Output 08/14/17 08/14/17 08/15/17 15:00 23:00 07:00 Intake Total 800 ml Output Total 700 ml Balance 100 ml Results/Medications Result Diagram: 08/15/1723 08/15/1723 Results 24 hrs Laboratory Tests Test 08/15/17 06:23 08/15/17 21:13 White Blood Count 12.7 H Red Blood Count 2.95 L Hemoglobin 9.6 L Hematocrit 30.1 L Mean Corpuscular Volume 102.0 H Mean Corpuscular Hemoglobin 32.5 Mean Corpuscular Hemoglobin Concent 31.9 L Red Cell Distribution Width 14.6 H Platelet Count 199 Mean Platelet Volume 11.5 H Neutrophils % 74.1 Lymphocytes % 12.3 L Monocytes % 9.0 Eosinophils % 3.9 Basophils % 0.2 Nucleated Red Blood Cells % 0.0 Neutrophils # 9.4 H Lymphocytes # 1.6 Monocytes # 1.2 H Eosinophils # 0.5 Basophils # 0.0 Nucleated Red Blood Cells # 0.0 Sodium Level 142 Potassium Level 3.7 Chloride Level 104 Carbon Dioxide Level 31 Anion Gap 11 Blood Urea Nitrogen 13 Creatinine 0.72 Glucose Level 90 Calcium Level 9.1 Magnesium Level 2.0 Bedside Glucose 108 Medications Current Medications Morphine Sulfate (morphine) 2 mg Q4H PRN IV back pain Last administered on t 09:30; Admin Dose 2 MG; Start 07/24/17 at 17:30 Ondansetron HCl (Zofran Inj) 4 mg Q6H PRN IV NAUSEA AND/OR VOMITING; Start at 19:00 Morphine Sulfate (morphine) 4 mg Q4H PRN IV PAIN LEVEL 7-10 Last administered on 08/10/17 08:37; Admin Dose 4 MG; Start 07/24/17 at 19:00 Miscellaneous Information 1 ea NOTE XX ; Start 07/25/17 at 10:30 Nystatin (Nystatin Powder) 1 applic BID TOP Last administered on 08/15/17 21: 15; Admin Dose 1 APPLIC; Start 07/25/17 at 13:00 IV Flush (NS 10 ml) 10 ml PRN PRN IV IV PROTOCOL; Start 07/25/17 at 17:30 Acetaminophen (Tylenol Liquid) 650 mg Q6H PRN NGT PAIN AND OR ELEVATED TEMP Last administered on 08/04/17 05:44; Admin Dose 650 MG; Start 07/27/17 at 20:30 Atropine Sulfate (Atropine (Syringe)) 0.5 mg PRN PRN IV DECREASED HEART RATE Last administered on 08/07/17 18:30; Admin Dose 0.5 MG; Start 08/01/17 at 10: 30 Miscellaneous Information (Pending [facility] Order For Wound Care) This patient kuhn... PRN PRN XX WOUND CARE; Start 08/07/17 at 19:30 Lactulose (Enulose) 30 gm Q4 PRN PO CONSTIPATIN Last administered on 17:02; Admin Dose 30 GM; Start 08/08/17 at 08:00 Pantoprazole (Protonix Tab) 40 mg DAILY@06 PO Last administered on 08/15/17 06:38; Admin Dose 40 MG; Start 08/09/17 at 06:00 Potassium Chloride (Potassium Chloride Pwd/Soln) 20 meq TID PO Last administered on 08/15/17 21:15; Admin Dose 20 MEQ; Start 08/12/17 at 10:00 Doxycycline Hyclate (Vibramycin) 100 mg BID PO Last administered on 08/15/17 21:15; Admin Dose 100 MG; Start 08/12/17 at 21:00 Amlodipine Besylate (Norvasc) 5 mg DAILY PO Last administered on 08/15/17 08: 54; Admin Dose 5 MG; Start 08/12/17 at 16:30 Hydralazine HCl (Apresoline) 10 mg Q6H PRN IV SBP greater than 160 Last administered on 08/14/17 16:30; Admin Dose 10 MG; Start 08/12/17 at 16:30 Tramadol HCl (Ultram) 50 mg BID PRN PO pain; Start 08/13/17 at 15:00 Acetaminophen (Tylenol Tab) 650 mg Q6H PRN PO PAIN AND OR ELEVATED TEMP; Start 08/13/17 at 15:00 Metoprolol Tartrate (Lopressor) 25 mg BID PO Last administered on 08/15/17t 21 :16; Admin Dose 25 MG; Start 08/13/17 at 21:00 Assessment/Plan Chief Complaint/Hosp Course SUBJECTIVE: No events overnight. Awake, denies pain, looks comfortable, no fevers . ANTIMICROBIALS: Doxycycline INDWELLINGS: [place] catheter, PICC line. PHYSICAL EXAMINATION: GENERAL: Well-developed, obese, elderly woman who is in no distress. HEENT: Head atraumatic, normocephalic. Sclerae anicteric. Buccal mucosa dry. NECK: Supple. CHEST: Rise symmetrical. Breath sounds diminished to bases. HEART: S1, S2. ABDOMEN: Soft, bowel tones present. EXTREMITIES: Without cyanosis, LLE erythema. ASSESSMENT: 1. LLE cellulitis 2. Status post sepsis/Escherichia coli extended-spectrum beta-lactamase with bacteremia. 3. Sinus bradycardia. 4. Status post acute kidney failure, resolved. 5. Back pain/L1 fx==> ortho follows 6. Pulmonary edema PLAN: Remains stable, LLE looks better, Doxycycline/LLE elevation, cardiology rec-s noted [facility] staff Problems: ERICKA LEGER NP Aug 15, 2017 22:23
[2017-08-16] VITALS (13 sets, daily range): BP systolic 111–125; BP diastolic 56–68; PULSE 77–88; RESP 18–20
[2017-08-16] MEDS: FUROSEMIDE 40 MG INJ IV SCH (05:58)
[2017-08-16] MEDS: PANTOPRAZOLE (EC) 40 MG TAB PO SCH (05:58)
[2017-08-16] MEDS: morphine 2 MG INJ IV PRN ×2 (06:16→12:37)
[2017-08-16 06:19] LABS: BASOPHILS % 0.2 % (0.0-2.0); EOSINOPHILS # 0.5 10^3/ul (0.0-0.5); EOSINOPHILS % 3.8 % (0.0-7.0); HEMATOCRIT 30.8 % (37.0-47.0); HEMOGLOBIN 9.8 g/dl (12.0-16.0); LYMPHOCYTES # 1.8 10^3/ul (0.8-2.9); LYMPHOCYTES % 14.5 % (15.0-51.0); MEAN CORPUSCULAR HEMOGLOBIN 32.6 pg (29.0-33.0); MEAN CORPUSCULAR HGB CONC 31.8 g/dl (32.0-37.0); MEAN CORPUSCULAR VOLUME 102.3 fl (82.0-101.0); MEAN PLATELET VOLUME 11.1 fl (7.4-10.4); MONOCYTE # 1.1 10^3/ul (0.3-0.9); MONOCYTES % 8.6 % (0.0-11.0); NEUTROPHILS % 72.6 % (39.0-77.0); PLATELET COUNT 224 10^3/UL (140-415); RED BLOOD COUNT 3.01 10^6/ul (4.20-5.40); RED CELL DISTRIBUTION WIDTH 14.6 % (11.5-14.5); WHITE BLOOD COUNT 12.4 10^3/ul (4.8-10.8)
[2017-08-16 07:17] LABS: CALCIUM 9.2 mg/dl (8.4-10.2); CREATININE 0.85 mg/dl (0.44-1.00); POTASSIUM 3.8 mmol/L (3.5-5.1)
[2017-08-16] MEDS: DOXYCYCLINE 100 MG TAB PO SCH ×2 (08:34→21:05)
[2017-08-16] MEDS: POTASSIUM CHLORIDE 20 MEQ POWDER FOR ORAL SOLN PO SCH ×3 (08:35→21:05)
[2017-08-16] MEDS: NYSTATIN 30 GM POWDER BTL TOP SCH ×2 (08:35→21:05)
[2017-08-16] MEDS: AMLODIPINE 5 MG TAB PO SCH (08:35)
[2017-08-16] MEDS: METOPROLOL 25 MG TAB PO SCH ×2 (08:35→21:05)
[2017-08-16] MEDS: BALSAM PERU/CASTOR OIL 60 GM TUBE TOP SCH ×2 (08:36→21:05)
--- NOTE | 2017-08-16 11:40 | CONS ---
Date/Time of Note Date/Time of Note DATE: 08/16/17 TIME: 11:35 Assessment/Plan Assessment/Plan Additional Assessment/Plan Assessment and recommendations; 1. Patient admitted with severe E. coli sepsis with respiratory failure doing very well now. 2. Left lower extremity cellulitis. 3. Pulmonary edema with interval improvement after being started on Lasix. Continue current treatment. Decrease Lasix to 40 mg daily. Consultation Date/Type/Reason Admit Date/Time Jul 24, 2017 at 11:53 Initial Consult Date 07/25/17 Type of Consultation: Pulmonary Referring Provider: PIPER SANTANA MD 24 HR Interval Summary Free Text/Dictation Patient's condition is stable. Denies any shortness of breath. Fever. Any chest pain. General exam; elderly woman, awake and alert. Currently in no distress. Exam/Review of Systems Vital Signs Vitals Vital Signs Date Time Temp Pulse Resp B/P Pulse Ox O2 Delivery O2 Flow Rate FiO2 08/16/17 11:02 98.5 74 19 111/56 97 08/16/17 10:39 3.0 08/16/17 08:15 Nasal Cannula Intake and Output 08/15/17 08/15/17 08/16/17 15:00 23:00 07:00 Intake Total 250 ml 300 ml Output Total 1500 ml 1200 ml Balance -1250 ml -900 ml Exam HEENT exam; supple neck, JVD difficult to see because of short neck. Patient has fair dentition. Pharynx is clear. No neck masses. No thyromegaly. No lymphadenopathy. Pupils are midsize and reactive to light. Chest exam; diminished but clear breath sounds. S1-S2 audible, no murmurs. Regular rhythm. Abdomen exam; soft, protuberant. Nontender. No organomegaly. Bowel sounds audible. Extremity exam; no peripheral edema. LANDSCAPE ARCH[employer]ECT AND PL[employer]NER exam; no focal deficit. Results Result Diagram: 08/16/17 0539 08/16/17 0539 Results 24 hrs Laboratory Tests Test 08/15/17 21:13 08/16/17 05:39 Bedside Glucose 108 White Blood Count 12.4 H Red Blood Count 3.01 L Hemoglobin 9.8 L Hematocrit 30.8 L Mean Corpuscular Volume 102.3 H Mean Corpuscular Hemoglobin 32.6 Mean Corpuscular Hemoglobin Concent 31.8 L Red Cell Distribution Width 14.6 H Platelet Count 224 Mean Platelet Volume 11.1 H Neutrophils % 72.6 Lymphocytes % 14.5 L Monocytes % 8.6 Eosinophils % 3.8 Basophils % 0.2 Nucleated Red Blood Cells % 0.0 Neutrophils # 9.0 H Lymphocytes # 1.8 Monocytes # 1.1 H Eosinophils # 0.5 Basophils # 0.0 Nucleated Red Blood Cells # 0.0 Sodium Level 145 H Potassium Level 3.8 Chloride Level 104 Carbon Dioxide Level 33 H Anion Gap 12 Blood Urea Nitrogen 16 Creatinine 0.85 Glucose Level 100 Calcium Level 9.2 Medications Medications Current Medications Morphine Sulfate (morphine) 2 mg Q4H PRN IV back pain Last administered on 06:16; Admin Dose 2 MG; Start 07/24/17 at 17:30 Ondansetron HCl (Zofran Inj) 4 mg Q6H PRN IV NAUSEA AND/OR VOMITING; Start at 19:00 Morphine Sulfate (morphine) 4 mg Q4H PRN IV PAIN LEVEL 7-10 Last administered on 08/10/17 08:37; Admin Dose 4 MG; Start 07/24/17 at 19:00 Miscellaneous Information 1 ea NOTE XX ; Start 07/25/17 at 10:30 Nystatin (Nystatin Powder) 1 applic BID TOP Last administered on 08/16/17 08: 35; Admin Dose 1 APPLIC; Start 07/25/17 at 13:00 IV Flush (NS 10 ml) 10 ml PRN PRN IV IV PROTOCOL; Start 07/25/17 at 17:30 Acetaminophen (Tylenol Liquid) 650 mg Q6H PRN NGT PAIN AND OR ELEVATED TEMP Last administered on 08/04/17 05:44; Admin Dose 650 MG; Start 07/27/17 at 20:30 Atropine Sulfate (Atropine (Syringe)) 0.5 mg PRN PRN IV DECREASED HEART RATE Last administered on 08/07/17 18:30; Admin Dose 0.5 MG; Start 08/01/17 at 10: 30 Miscellaneous Information (Pending [facility] Order For Wound Care) This patient kuhn... PRN PRN XX WOUND CARE; Start 08/07/17 at 19:30 Lactulose (Enulose) 30 gm Q4 PRN PO CONSTIPATIN Last administered on 17:02; Admin Dose 30 GM; Start 08/08/17 at 08:00 Pantoprazole (Protonix Tab) 40 mg DAILY@06 PO Last administered on 08/16/17 05:58; Admin Dose 40 MG; Start 08/09/17 at 06:00 Potassium Chloride (Potassium Chloride Pwd/Soln) 20 meq TID PO Last administered on 08/16/17 08:35; Admin Dose 20 MEQ; Start 08/12/17 at 10:00 Doxycycline Hyclate (Vibramycin) 100 mg BID PO Last administered on 08/16/17 08:34; Admin Dose 100 MG; Start 08/12/17 at 21:00 Amlodipine Besylate (Norvasc) 5 mg DAILY PO Last administered on 08/16/17 08: 35; Admin Dose 5 MG; Start 08/12/17 at 16:30 Hydralazine HCl (Apresoline) 10 mg Q6H PRN IV SBP greater than 160 Last administered on 08/14/17 16:30; Admin Dose 10 MG; Start 08/12/17 at 16:30 Tramadol HCl (Ultram) 50 mg BID PRN PO pain; Start 08/13/17 at 15:00 Acetaminophen (Tylenol Tab) 650 mg Q6H PRN PO PAIN AND OR ELEVATED TEMP; Start 08/13/17 at 15:00 Metoprolol Tartrate (Lopressor) 25 mg BID PO Last administered on 08/16/17 08 :35; Admin Dose 25 MG; Start 08/13/17 at 21:00 IVETTE SINGER Aug 16, 2017 11:40
--- NOTE | 2017-08-16 11:45 | CONS ---
Date/Time of Note Date/Time of Note DATE: 08/16/17 TIME: 11:43 Assessment/Plan Assessment/Plan Additional Assessment/Plan Sepsis Acute decompensated systolic congestive heart failure Encephalopathy, improved History of sinus bradycardia Preserved ejection fraction Hypertension Paroxysmal atrial fibrillation -Lung examination overall improved. Would continue diuretics as renal function and blood pressure permits. Telemetry reviewed with no further atrial fibrillation. Continue beta-jerrell as heart rate and blood pressure permits. Consultation Date/Type/Reason Admit Date/Time Jul 24, 2017 at 11:53 Initial Consult Date 08/07/17 Type of Consultation: cv Referring Provider: PIPER SANTANA MD 24 HR Interval Summary Free Text/Dictation Cough is less, denies shortness of breath Exam/Review of Systems Vital Signs Vitals Vital Signs Date Time Temp Pulse Resp B/P Pulse Ox O2 Delivery O2 Flow Rate FiO2 08/16/17 11:02 98.5 74 19 111/56 97 08/16/17 10:39 3.0 08/16/17 08:15 Nasal Cannula Intake and Output 08/15/17 08/15/17 08/16/17 15:00 23:00 07:00 Intake Total 250 ml 300 ml Output Total 1500 ml 1200 ml Balance -1250 ml -900 ml Exam Following commands, no apparent distress Constitutional: alert Head: normocephalic Respiratory: other (Coarse breath sounds bilaterally, no wheezing) Cardiovascular: other (S1-S2 heard), regular rate and rhythm Gastrointestinal: bowel sounds, non-tender, soft Extremities: edema Results Result Diagram: 08/16/17 0539 08/16/17 0539 Results 24 hrs Laboratory Tests Test 08/15/17 21:13 08/16/17 05:39 Bedside Glucose 108 White Blood Count 12.4 H Red Blood Count 3.01 L Hemoglobin 9.8 L Hematocrit 30.8 L Mean Corpuscular Volume 102.3 H Mean Corpuscular Hemoglobin 32.6 Mean Corpuscular Hemoglobin Concent 31.8 L Red Cell Distribution Width 14.6 H Platelet Count 224 Mean Platelet Volume 11.1 H Neutrophils % 72.6 Lymphocytes % 14.5 L Monocytes % 8.6 Eosinophils % 3.8 Basophils % 0.2 Nucleated Red Blood Cells % 0.0 Neutrophils # 9.0 H Lymphocytes # 1.8 Monocytes # 1.1 H Eosinophils # 0.5 Basophils # 0.0 Nucleated Red Blood Cells # 0.0 Sodium Level 145 H Potassium Level 3.8 Chloride Level 104 Carbon Dioxide Level 33 H Anion Gap 12 Blood Urea Nitrogen 16 Creatinine 0.85 Glucose Level 100 Calcium Level 9.2 Medications Medications Current Medications Morphine Sulfate (morphine) 2 mg Q4H PRN IV back pain Last administered on 06:16; Admin Dose 2 MG; Start 07/24/17 at 17:30 Ondansetron HCl (Zofran Inj) 4 mg Q6H PRN IV NAUSEA AND/OR VOMITING; Start at 19:00 Morphine Sulfate (morphine) 4 mg Q4H PRN IV PAIN LEVEL 7-10 Last administered on 08/10/17 08:37; Admin Dose 4 MG; Start 07/24/17 at 19:00 Miscellaneous Information 1 ea NOTE XX ; Start 07/25/17 at 10:30 Nystatin (Nystatin Powder) 1 applic BID TOP Last administered on 08/16/17 08: 35; Admin Dose 1 APPLIC; Start 07/25/17 at 13:00 IV Flush (NS 10 ml) 10 ml PRN PRN IV IV PROTOCOL; Start 07/25/17 at 17:30 Acetaminophen (Tylenol Liquid) 650 mg Q6H PRN NGT PAIN AND OR ELEVATED TEMP Last administered on 08/04/17 05:44; Admin Dose 650 MG; Start 07/27/17 at 20:30 Atropine Sulfate (Atropine (Syringe)) 0.5 mg PRN PRN IV DECREASED HEART RATE Last administered on 08/07/17 18:30; Admin Dose 0.5 MG; Start 08/01/17 at 10: 30 Miscellaneous Information [facility] This patient kuhn... PRN PRN XX WOUND CARE; Start 08/07/17 at 19:30 Lactulose (Enulose) 30 gm Q4 PRN PO CONSTIPATIN Last administered on 17:02; Admin Dose 30 GM; Start 08/08/17 at 08:00 Pantoprazole (Protonix Tab) 40 mg DAILY@06 PO Last administered on 08/16/17 05:58; Admin Dose 40 MG; Start 08/09/17 at 06:00 Potassium Chloride (Potassium Chloride Pwd/Soln) 20 meq TID PO Last administered on 08/16/17 08:35; Admin Dose 20 MEQ; Start 08/12/17 at 10:00 Doxycycline Hyclate (Vibramycin) 100 mg BID PO Last administered on 08/16/17 08:34; Admin Dose 100 MG; Start 08/12/17 at 21:00 Amlodipine Besylate (Norvasc) 5 mg DAILY PO Last administered on 08/16/17 08: 35; Admin Dose 5 MG; Start 08/12/17 at 16:30 Hydralazine HCl (Apresoline) 10 mg Q6H PRN IV SBP greater than 160 Last administered on 08/14/17 16:30; Admin Dose 10 MG; Start 08/12/17 at 16:30 Tramadol HCl (Ultram) 50 mg BID PRN PO pain; Start 08/13/17 at 15:00 Acetaminophen (Tylenol Tab) 650 mg Q6H PRN PO PAIN AND OR ELEVATED TEMP; Start 08/13/17 at 15:00 Metoprolol Tartrate (Lopressor) 25 mg BID PO Last administered on 08/16/17 08 :35; Admin Dose 25 MG; Start 08/13/17 at 21:00 Furosemide (Lasix) 40 mg DAILY@06 IV ; Start 08/17/17 at 06:00 Jaspreet Sands DO Aug 16, 2017 11:45
--- NOTE | 2017-08-16 12:54 | CONS ---
Date/Time of Note Date/Time of Note DATE: 08/16/17 TIME: 12:54 Consult Date/Type/Reason Admit Date/Time Jul 24, 2017 at 11:53 Initial Consult Date 07/25/17 Type of Consultation: ID Ordering Provider: PIPER SANTANA MD Objective Vital Signs Date Time Temp Pulse Resp B/P Pulse Ox O2 Delivery O2 Flow Rate FiO2 08/16/17 12:12 77 08/16/17 11:02 98.5 19 111/56 97 08/16/17 10:39 3.0 08/16/17 08:15 Nasal Cannula Intake and Output 08/15/17 08/15/17 08/16/17 15:00 23:00 07:00 Intake Total 250 ml 300 ml Output Total 1500 ml 1200 ml Balance -1250 ml -900 ml Results/Medications Result Diagram: 08/16/17 0539 08/16/17 0539 Results 24 hrs Laboratory Tests Test 08/15/17 21:13 08/16/17 05:39 Bedside Glucose 108 White Blood Count 12.4 H Red Blood Count 3.01 L Hemoglobin 9.8 L Hematocrit 30.8 L Mean Corpuscular Volume 102.3 H Mean Corpuscular Hemoglobin 32.6 Mean Corpuscular Hemoglobin Concent 31.8 L Red Cell Distribution Width 14.6 H Platelet Count 224 Mean Platelet Volume 11.1 H Neutrophils % 72.6 Lymphocytes % 14.5 L Monocytes % 8.6 Eosinophils % 3.8 Basophils % 0.2 Nucleated Red Blood Cells % 0.0 Neutrophils # 9.0 H Lymphocytes # 1.8 Monocytes # 1.1 H Eosinophils # 0.5 Basophils # 0.0 Nucleated Red Blood Cells # 0.0 Sodium Level 145 H Potassium Level 3.8 Chloride Level 104 Carbon Dioxide Level 33 H Anion Gap 12 Blood Urea Nitrogen 16 Creatinine 0.85 Glucose Level 100 Calcium Level 9.2 Medications Current Medications Morphine Sulfate (morphine) 2 mg Q4H PRN IV back pain Last administered on 12:37; Admin Dose 2 MG; Start 07/24/17 at 17:30 Ondansetron HCl (Zofran Inj) 4 mg Q6H PRN IV NAUSEA AND/OR VOMITING; Start at 19:00 Morphine Sulfate (morphine) 4 mg Q4H PRN IV PAIN LEVEL 7-10 Last administered on 08/10/17 08:37; Admin Dose 4 MG; Start 07/24/17 at 19:00 Miscellaneous Information 1 ea NOTE XX ; Start 07/25/17 at 10:30 Nystatin (Nystatin Powder) 1 applic BID TOP Last administered on 08/16/17 08: 35; Admin Dose 1 APPLIC; Start 07/25/17 at 13:00 IV Flush (NS 10 ml) 10 ml PRN PRN IV IV PROTOCOL; Start 07/25/17 at 17:30 Acetaminophen (Tylenol Liquid) 650 mg Q6H PRN NGT PAIN AND OR ELEVATED TEMP Last administered on 08/04/17 05:44; Admin Dose 650 MG; Start 07/27/17 at 20:30 Atropine Sulfate (Atropine (Syringe)) 0.5 mg PRN PRN IV DECREASED HEART RATE Last administered on 08/07/17 18:30; Admin Dose 0.5 MG; Start 08/01/17 at 10: 30 Misc[facility] This patient kuhn... PRN PRN XX WOUND CARE; Start 08/07/17 at 19:30 Lactulose (Enulose) 30 gm Q4 PRN PO CONSTIPATIN Last administered on 17:02; Admin Dose 30 GM; Start 08/08/17 at 08:00 Pantoprazole (Protonix Tab) 40 mg DAILY@06 PO Last administered on 08/16/17 05:58; Admin Dose 40 MG; Start 08/09/17 at 06:00 Potassium Chloride (Potassium Chloride Pwd/Soln) 20 meq TID PO Last administered on 08/16/17 12:36; Admin Dose 20 MEQ; Start 08/12/17 at 10:00 Doxycycline Hyclate (Vibramycin) 100 mg BID PO Last administered on 08/16/17 08:34; Admin Dose 100 MG; Start 08/12/17 at 21:00 Amlodipine Besylate (Norvasc) 5 mg DAILY PO Last administered on 08/16/17 08: 35; Admin Dose 5 MG; Start 08/12/17 at 16:30 Hydralazine HCl (Apresoline) 10 mg Q6H PRN IV SBP greater than 160 Last administered on 08/14/17 16:30; Admin Dose 10 MG; Start 08/12/17 at 16:30 Tramadol HCl (Ultram) 50 mg BID PRN PO pain; Start 08/13/17 at 15:00 Acetaminophen (Tylenol Tab) 650 mg Q6H PRN PO PAIN AND OR ELEVATED TEMP; Start 08/13/17 at 15:00 Metoprolol Tartrate (Lopressor) 25 mg BID PO Last administered on 08/16/17t 08 :35; Admin Dose 25 MG; Start 08/13/17 at 21:00 Furosemide (Lasix) 40 mg DAILY@06 IV ; Start 08/17/17 at 06:00 Assessment/Plan Chief Complaint/Hosp Course SUBJECTIVE: No acute events overnight. Awake, denies pain, looks comfortable, no fevers . ANTIMICROBIALS: Doxycycline INDWELLINGS: [place] catheter, PICC line. PHYSICAL EXAMINATION: GENERAL: Well-developed, obese, elderly woman who is in no distress. HEENT: Head atraumatic, normocephalic. Sclerae anicteric. Buccal mucosa dry. NECK: Supple. CHEST: Rise symmetrical. Breath sounds diminished to bases. HEART: S1, S2. ABDOMEN: Soft, bowel tones present. EXTREMITIES: Without cyanosis, LLE erythema. ASSESSMENT: 1. LLE cellulitis 2. Status post sepsis/Escherichia coli extended-spectrum beta-lactamase with bacteremia. 3. Sinus bradycardia. 4. Status post acute kidney failure, resolved. 5. Back pain/L1 fx==> ortho follows 6. Pulmonary edema PLAN: Remains stable,continue Doxycycline/LLE elevation, cardiology/pulmonary rec-s noted [facility] staff Problems: ERICKA LEGRE NP Aug 16, 2017 12:54
--- NOTE | 2017-08-16 16:14 | PN ---
Date/Time of Note Date/Time of Note DATE: 08/16/17 TIME: 16:09 Assessment/Plan VTE Prophylaxis VTE Prophylaxis Intervention: SCD's Lines/Catheters IV Catheter Type (from Nrsg): PICC Line Urinary Cath still in place: Yes Subjective 24 Hr Interval Summary Free Text/Dictation sepsis, arf resolved hypiokalemia resolved therombocytopenia resolved persistent back pain, probable vert fx from fall at home prior to admit(per hx), remains ess immobile, cries oput with turns or body mobility, has a bed at [facility], would transfer on saturday presuming resp status is stable pulm sx...cxr better, edema being mobilized, getting chest /resp therapy...to continue cardiac status ok now, no further afib, rhythm suinus, rate ok w betablocker awake, only co back pain maribell pureed, needs to be fed lungs sound better, less edema Respiratory: shortness of breath Cardiovascular: edema Genitourinary: other Musculoskeletal: back pain (holman in) Exam/Review of Systems Vital Signs Vitals Vital Signs Date Time Temp Pulse Resp B/P Pulse Ox O2 Delivery O2 Flow Rate FiO2 08/16/17 15:21 97.9 68 20 116/64 98 08/16/17 10:39 3.0 08/16/17 08:15 Nasal Cannula Intake and Output 08/15/17 08/15/17 08/16/17 15:00 23:00 07:00 Intake Total 250 ml 300 ml Output Total 1500 ml 1200 ml Balance -1250 ml -900 ml Results Result Diagram: 08/16/17 0539 08/16/17 0539 Results 24 hrs Laboratory Tests Test 08/15/17 21:13 08/16/17 05:39 Bedside Glucose 108 White Blood Count 12.4 H Red Blood Count 3.01 L Hemoglobin 9.8 L Hematocrit 30.8 L Mean Corpuscular Volume 102.3 H Mean Corpuscular Hemoglobin 32.6 Mean Corpuscular Hemoglobin Concent 31.8 L Red Cell Distribution Width 14.6 H Platelet Count 224 Mean Platelet Volume 11.1 H Neutrophils % 72.6 Lymphocytes % 14.5 L Monocytes % 8.6 Eosinophils % 3.8 Basophils % 0.2 Nucleated Red Blood Cells % 0.0 Neutrophils # 9.0 H Lymphocytes # 1.8 Monocytes # 1.1 H Eosinophils # 0.5 Basophils # 0.0 Nucleated Red Blood Cells # 0.0 Sodium Level 145 H Potassium Level 3.8 Chloride Level 104 Carbon Dioxide Level 33 H Anion Gap 12 Blood Urea Nitrogen 16 Creatinine 0.85 Glucose Level 100 Calcium Level 9.2 Medications Medications Current Medications Morphine Sulfate (morphine) 2 mg Q4H PRN IV back pain Last administered on 12:37; Admin Dose 2 MG; Start 07/24/17 at 17:30 Ondansetron HCl (Zofran Inj) 4 mg Q6H PRN IV NAUSEA AND/OR VOMITING; Start at 19:00 Morphine Sulfate (morphine) 4 mg Q4H PRN IV PAIN LEVEL 7-10 Last administered on 08/10/17 08:37; Admin Dose 4 MG; Start 07/24/17 at 19:00 Miscellaneous Information 1 ea NOTE XX ; Start 07/25/17 at 10:30 Nystatin (Nystatin Powder) 1 applic BID TOP Last administered on 08/16/17 08: 35; Admin Dose 1 APPLIC; Start 07/25/17 at 13:00 IV Flush (NS 10 ml) 10 ml PRN PRN IV IV PROTOCOL; Start 07/25/17 at 17:30 Acetaminophen (Tylenol Liquid) 650 mg Q6H PRN NGT PAIN AND OR ELEVATED TEMP Last administered on 08/04/17 05:44; Admin Dose 650 MG; Start 07/27/17 at 20:30 Atropine Sulfate (Atropine (Syringe)) 0.5 mg PRN PRN IV DECREASED HEART RATE Last administered on 08/07/17 18:30; Admin Dose 0.5 MG; Start 08/01/17 at 10: 30 Miscellaneous Information [facility] This patient kuhn... PRN PRN XX WOUND CARE; Start 08/07/17 at 19:30 Lactulose (Enulose) 30 gm Q4 PRN PO CONSTIPATIN Last administered on 17:02; Admin Dose 30 GM; Start 08/08/17 at 08:00 Pantoprazole (Protonix Tab) 40 mg DAILY@06 PO Last administered on 08/16/17 05:58; Admin Dose 40 MG; Start 08/09/17 at 06:00 Potassium Chloride (Potassium Chloride Pwd/Soln) 20 meq TID PO Last administered on 08/16/17 12:36; Admin Dose 20 MEQ; Start 08/12/17 at 10:00 Doxycycline Hyclate (Vibramycin) 100 mg BID PO Last administered on 08/16/17 08:34; Admin Dose 100 MG; Start 08/12/17 at 21:00 Amlodipine Besylate (Norvasc) 5 mg DAILY PO Last administered on 08/16/17 08: 35; Admin Dose 5 MG; Start 08/12/17 at 16:30 Hydralazine HCl (Apresoline) 10 mg Q6H PRN IV SBP greater than 160 Last administered on 08/14/17 16:30; Admin Dose 10 MG; Start 08/12/17 at 16:30 Tramadol HCl (Ultram) 50 mg BID PRN PO pain; Start 08/13/17 at 15:00 Acetaminophen (Tylenol Tab) 650 mg Q6H PRN PO PAIN AND OR ELEVATED TEMP; Start 08/13/17 at 15:00 Metoprolol Tartrate (Lopressor) 25 mg BID PO Last administered on 08/16/17 08 :35; Admin Dose 25 MG; Start 08/13/17 at 21:00 Furosemide (Lasix) 40 mg DAILY@06 IV ; Start 08/17/17 at 06:00 PIPER SANTANA MD Aug 16, 2017 16:14
[2017-08-17] VITALS (11 sets, daily range): BP systolic 100–131; BP diastolic 48–72; PULSE 74–97; RESP 17–20
[2017-08-17] MEDS: FUROSEMIDE 40 MG INJ IV SCH (06:08)
[2017-08-17] MEDS: PANTOPRAZOLE (EC) 40 MG TAB PO SCH (06:08)
[2017-08-17] MEDS: METOPROLOL 25 MG TAB PO SCH ×2 (09:00→22:11)
[2017-08-17] MEDS: AMLODIPINE 5 MG TAB PO SCH (09:00)
[2017-08-17] MEDS: NYSTATIN 30 GM POWDER BTL TOP SCH ×2 (09:00→22:10)
[2017-08-17] MEDS ORDERED: LORAZEPAM 0.5 MG TAB PO PRN (09:30)
--- NOTE | 2017-08-17 09:33 | PN ---
Date/Time of Note Date/Time of Note DATE: 08/17/17 TIME: 09:25 Assessment/Plan VTE Prophylaxis VTE Prophylaxis Intervention: SCD's Lines/Catheters IV Catheter Type (from Nrsg): PICC Line Central line still needed: Yes Urinary Cath still in place: Yes Reason Cath still needed: skin wounds contaminated by urine Assessment/Plan Problems: (1) Anxiety Status: Acute Comment: Add Ativan as needed. Acknowledged that it will not improve her mental status which is clearly still impaired (2) UTI (urinary tract infection) Status: Acute Comment: Continue doxycycline Qualifiers: Urinary tract infection type: acute cystitis Hematuria presence: without hematuria Qualified Code: N30.00 - Acute cystitis without hematuria (3) Compression fracture of L1 lumbar vertebra Status: Acute Comment: Continue pain management. Patient will need rehab eventually. This will occur after her transfer to outside facility. (4) Altered breathing pattern Status: Acute Comment: Profoundly improved breath sounds with chest physiotherapy and incentive spirometry. Plan chest x-ray tomorrow to reevaluate Subjective 24 Hr Interval Summary Constitutional: disoriented Respiratory: no complaints Cardiovascular: no complaints Gastrointestinal: no complaints Genitourinary: no complaints Musculoskeletal: back pain Skin: pruritis Neurologic: no complaints Psychological: anxiety Exam/Review of Systems Vital Signs Vitals VS - Last 72 Hours, by Label Date Time Temp Pulse Resp B/P Pulse Ox O2 Delivery O2 Flow Rate FiO2 08/17/17 08:08 84 08/17/17 07:41 98.3 84 18 100/51 98 08/17/17 04:04 98.7 79 17 110/48 97 08/17/17 04:00 78 08/17/17 03:01 3.0 08/17/17 00:26 74 08/16/17 23:40 98.0 95 18 114/66 96 08/16/17 20:54 3.0 08/16/17 20:11 88 08/16/17 20:00 Nasal Cannula 2.0 08/16/17 20:00 98.1 96 18 117/60 95 08/16/17 16:02 81 08/16/17 15:21 97.9 68 20 116/64 98 08/16/17 12:12 77 08/16/17 11:02 98.5 74 19 111/56 97 08/16/17 10:39 3.0 08/16/17 08:15 Nasal Cannula 2.0 08/16/17 08:10 84 08/16/17 07:25 98.5 81 20 125/66 98 08/16/17 04:20 84 08/16/17 03:54 98.0 88 18 116/68 99 08/16/17 01:37 3.0 08/16/17 00:48 98.8 80 18 125/60 99 08/16/17 00:30 81 08/15/17 21:40 3.0 08/15/17 20:00 96 08/15/17 20:00 98.3 98 18 139/60 95 08/15/17 20:00 Nasal Cannula 2.0 08/15/17 18:37 3.0 08/15/17 16:14 86 08/15/17 15:46 98.6 86 20 103/59 96 08/15/17 12:24 85 08/15/17 11:34 98.1 88 20 121/59 95 08/15/17 08:19 100 08/15/17 08:15 Nasal Cannula 2.0 08/15/17 07:08 98.2 99 19 113/57 97 08/15/17 04:23 92 08/15/17 04:07 98.6 70 18 108/60 98 08/15/17 00:05 98.4 96 18 106/53 94 08/15/17 00:02 3.0 08/15/17 00:00 Nasal Cannula 2.0 08/15/17 00:00 94 08/14/17 20:44 90 08/14/17 20:35 3.0 08/14/17 20:06 98.6 89 18 104/57 96 08/14/17 20:00 Nasal Cannula 2.0 08/14/17 16:55 103 08/14/17 15:26 99.5 100 18 170/78 93 08/14/17 14:21 3.0 08/14/17 13:00 62 145/62 08/14/17 12:30 106 08/14/17 11:27 98.5 104 18 169/77 97 Vital Signs Date Time Temp Pulse Resp B/P Pulse Ox O2 Delivery O2 Flow Rate FiO2 08/17/17 08:08 84 08/17/17 07:41 98.3 18 100/51 98 08/17/17 03:01 3.0 08/16/17 20:00 Nasal Cannula Intake and Output 08/16/17 08/16/17 08/17/17 15:00 23:00 07:00 Intake Total 200 ml 240 ml Output Total 2100 ml 1000 ml Balance -1900 ml -760 ml Exam Constitutional: alert, obese, No oriented (Oriented to person but not place or time) Psych: anxiety Respiratory: clear to auscultation, normal air movement Cardiovascular: nl pulses, regular rate and rhythm, No edema, No murmurs/extra sounds, No rub Gastrointestinal: bowel sounds, nl liver, spleen, non-tender, soft, No mass, No rebound or guarding Musculoskeletal: nl extremities to inspection Extremities: normal pulses, other (Brawny changes bilateral lower extremities consistent with resolved edema), No clubbing, No cyanosis, No edema Neurological: NURSING CLINICAL DIRECTOR II-XII intact, nl mental status, nl speech, nl strength Results Result Diagram: 08/16/1753808/16/17538 Medications Medications Current Medications Morphine Sulfate (morphine) 2 mg Q4H PRN IV back pain Last administered on 12:37; Admin Dose 2 MG; Start 07/24/17 at 17:30 Ondansetron HCl (Zofran Inj) 4 mg Q6H PRN IV NAUSEA AND/OR VOMITING; Start at 19:00 Morphine Sulfate (morphine) 4 mg Q4H PRN IV PAIN LEVEL 7-10 Last administered on 08/10/17 08:37; Admin Dose 4 MG; Start 07/24/17 at 19:00 Miscellaneous Information 1 ea NOTE XX ; Start 07/25/17 at 10:30 Nystatin (Nystatin Powder) 1 applic BID TOP Last administered on 08/16/17 21: 05; Admin Dose 1 APPLIC; Start 07/25/17 at 13:00 IV Flush (NS 10 ml) 10 ml PRN PRN IV IV PROTOCOL; Start 07/25/17 at 17:30 Acetaminophen (Tylenol Liquid) 650 mg Q6H PRN NGT PAIN AND OR ELEVATED TEMP Last administered on 08/04/17 05:44; Admin Dose 650 MG; Start 07/27/17 at 20:30 Atropine Sulfate (Atropine (Syringe)) 0.5 mg PRN PRN IV DECREASED HEART RATE Last administered on 08/07/17 18:30; Admin Dose 0.5 MG; Start 08/01/17 at 10: 30 Miscellaneous Information (Pending [facility] For [facility] Care) This patient kuhn... PRN PRN XX WOUND CARE; Start 08/07/17 at 19:30 Lactulose (Enulose) 30 gm Q4 PRN PO CONSTIPATIN Last administered on 17:02; Admin Dose 30 GM; Start 08/08/17 at 08:00 Pantoprazole (Protonix Tab) 40 mg DAILY@06 PO Last administered on 08/17/17 06:08; Admin Dose 40 MG; Start 08/09/17 at 06:00 Potassium Chloride (Potassium Chloride Pwd/Soln) 20 meq TID PO Last administered on 08/16/17 21:05; Admin Dose 20 MEQ; Start 08/12/17 at 10:00 Doxycycline Hyclate (Vibramycin) 100 mg BID PO Last administered on 08/16/17 21:05; Admin Dose 100 MG; Start 08/12/17 at 21:00 Amlodipine Besylate (Norvasc) 5 mg DAILY PO Last administered on 08/16/17 08: 35; Admin Dose 5 MG; Start 08/12/17 at 16:30 Hydralazine HCl (Apresoline) 10 mg Q6H PRN IV SBP greater than 160 Last administered on 08/14/17 16:30; Admin Dose 10 MG; Start 08/12/17 at 16:30 Tramadol HCl (Ultram) 50 mg BID PRN PO pain; Start 08/13/17 at 15:00 Acetaminophen (Tylenol Tab) 650 mg Q6H PRN PO PAIN AND OR ELEVATED TEMP; Start 08/13/17 at 15:00 Metoprolol Tartrate (Lopressor) 25 mg BID PO Last administered on 08/16/17 21 :05; Admin Dose 25 MG; Start 08/13/17 at 21:00 Furosemide (Lasix) 40 mg DAILY@06 IV Last administered on 08/17/17 06:08; Admin Dose 40 MG; Start 08/17/17 at 06:00 SHAVON SALAMANCA MD Aug 17, 2017 09:33
[2017-08-17] MEDS: POTASSIUM CHLORIDE 20 MEQ POWDER FOR ORAL SOLN PO SCH ×3 (09:41→22:11)
[2017-08-17] MEDS: DOXYCYCLINE 100 MG TAB PO SCH ×2 (09:42→22:10)
[2017-08-17] MEDS: morphine 2 MG INJ IV PRN ×2 (09:42→16:26)
--- NOTE | 2017-08-17 10:11 | RADRPT ---
PROCEDURE: XR Chest. CLINICAL INDICATION: Shortness of breath. TECHNIQUE: Single frontal view. COMPARISON: 08/15/2017. FINDINGS: The left arm PICC line remains in satisfactory position. Bilateral interstitial pulmonary disease wi th left worse than right is unchanged. Left basilar atelectasis is improved. The lungs are otherwise clear. The heart size is normal. There is no pleural effusion. There is no pneumothorax. IMPRESSION: 1. Left arm PICC line. 2. Unchanged bilateral interstitial disease with left worse than right. 3. Improved left basilar atelectasis. RPTAT: QQ .Geoff Wood MD, MD Date Time Electronically viewed and signed by .Geoff Wood MD, on 08/17/2017 10:11 .R/
[2017-08-17 10:26] LABS: CREATININE 0.95 mg/dl (0.44-1.00); POTASSIUM 4.1 mmol/L (3.5-5.1)
[2017-08-17] MEDS: BALSAM PERU/CASTOR OIL 60 GM TUBE TOP SCH ×2 (12:28→22:09)
[2017-08-17] MEDS: traMADol 50 MG TAB PO PRN (12:29)
--- NOTE | 2017-08-17 12:33 | PN ---
Date/Time of Note Date/Time of Note DATE: 08/17/17 TIME: 12:32 Assessment/Plan VTE Prophylaxis VTE Prophylaxis Intervention: SCD's Lines/Catheters IV Catheter Type (from Nrsg): PICC Line Central line still needed: No Urinary Cath still in place: Yes Reason Cath still needed: urinary retention Assessment/Plan Assessment/Plan Sepsis Acute decompensated systolic congestive heart failure Encephalopathy, improved History of sinus bradycardia Preserved ejection fraction Hypertension Paroxysmal atrial fibrillation -Lung examination overall improved. Would continue diuretics as renal function and blood pressure permits. Telemetry reviewed with no further atrial fibrillation. Continue beta-jerrell as heart rate and blood pressure permits. Subjective 24 Hr Interval Summary Free Text/Dictation The patient with no change Exam/Review of Systems Vital Signs Vitals Vital Signs Date Time Temp Pulse Resp B/P Pulse Ox O2 Delivery O2 Flow Rate FiO2 08/17/17 12:12 97 08/17/17 11:30 98.0 20 123/59 97 08/17/17 03:01 3.0 08/16/17 20:00 Nasal Cannula Intake and Output 08/16/17 08/16/17 08/17/17 15:00 23:00 07:00 Intake Total 200 ml 240 ml Output Total 2100 ml 1000 ml Balance -1900 ml -760 ml Results Result Diagram: 08/16/17 0539 08/17/17 0606 Results 24 hrs Laboratory Tests Test 08/17/17 06:06 Sodium Level 144 Potassium Level 4.1 Chloride Level 105 Carbon Dioxide Level 31 Anion Gap 12 Blood Urea Nitrogen 19 Creatinine 0.95 Glucose Level 91 Calcium Level 9.0 Medications Medications Current Medications Morphine Sulfate (morphine) 2 mg Q4H PRN IV back pain Last administered on 09:42; Admin Dose 2 MG; Start 07/24/17 at 17:30 Ondansetron HCl (Zofran Inj) 4 mg Q6H PRN IV NAUSEA AND/OR VOMITING; Start at 19:00 Morphine Sulfate (morphine) 4 mg Q4H PRN IV PAIN LEVEL 7-10 Last administered on 08/10/17 08:37; Admin Dose 4 MG; Start 07/24/17 at 19:00 Miscellaneous Information 1 ea NOTE XX ; Start 07/25/17 at 10:30 Nystatin (Nystatin Powder) 1 applic BID TOP Last administered on 08/17/17 09: 00; Admin Dose 1 APPLIC; Start 07/25/17 at 13:00 IV Flush (NS 10 ml) 10 ml PRN PRN IV IV PROTOCOL; Start 07/25/17 at 17:30 Acetaminophen (Tylenol Liquid) 650 mg Q6H PRN NGT PAIN AND OR ELEVATED TEMP Last administered on 08/04/17 05:44; Admin Dose 650 MG; Start 07/27/17 at 20:30 Atropine Sulfate (Atropine (Syringe)) 0.5 mg PRN PRN IV DECREASED HEART RATE Last administered on 08/07/17 18:30; Admin Dose 0.5 MG; Start 08/01/17 at 10: 30 Miscellaneous Information (Pending [facility] Order For Wound Care) This patient kuhn... PRN PRN XX WOUND CARE; Start 08/07/17 at 19:30 Lactulose (Enulose) 30 gm Q4 PRN PO CONSTIPATIN Last administered on 17:02; Admin Dose 30 GM; Start 08/08/17 at 08:00 Pantoprazole (Protonix Tab) 40 mg DAILY@06 PO Last administered on 08/17/17 06:08; Admin Dose 40 MG; Start 08/09/17 at 06:00 Potassium Chloride (Potassium Chloride Pwd/Soln) 20 meq TID PO Last administered on 08/17/17 09:41; Admin Dose 20 MEQ; Start 08/12/17 at 10:00 Doxycycline Hyclate (Vibramycin) 100 mg BID PO Last administered on 08/17/17 09:42; Admin Dose 100 MG; Start 08/12/17 at 21:00 Amlodipine Besylate (Norvasc) 5 mg DAILY PO Last administered on 08/16/17 08: 35; Admin Dose 5 MG; Start 08/12/17 at 16:30 Hydralazine HCl (Apresoline) 10 mg Q6H PRN IV SBP greater than 160 Last administered on 08/14/17 16:30; Admin Dose 10 MG; Start 08/12/17 at 16:30 Tramadol HCl (Ultram) 50 mg BID PRN PO pain Last administered on 08/17/17 12: 29; Admin Dose 50 MG; Start 08/13/17 at 15:00 Acetaminophen (Tylenol Tab) 650 mg Q6H PRN PO PAIN AND OR ELEVATED TEMP; Start 08/13/17 at 15:00 Metoprolol Tartrate (Lopressor) 25 mg BID PO Last administered on 08/16/17 21 :05; Admin Dose 25 MG; Start 08/13/17 at 21:00 Furosemide (Lasix) 40 mg DAILY@06 IV Last administered on 08/17/17 06:08; Admin Dose 40 MG; Start 08/17/17 at 06:00 Lorazepam (Ativan) 0.5 mg Q8H PRN PO ANXIETY Last administered on 08/17/17 09 :56; Admin Dose 0.5 MG; Start 08/17/17 at 09:30 JENNIE LEY MD Aug 17, 2017 12:33
--- NOTE | 2017-08-17 13:56 | CONS ---
Date/Time of Note Date/Time of Note DATE: 08/17/17 TIME: 13:55 Consult Date/Type/Reason Admit Date/Time Jul 24, 2017 at 11:53 Initial Consult Date 07/25/17 Type of Consultation: ID Ordering Provider: PIPER SANTANA MD Objective Vital Signs Date Time Temp Pulse Resp B/P Pulse Ox O2 Delivery O2 Flow Rate FiO2 08/17/17 12:12 97 08/17/17 11:30 98.0 20 123/59 97 08/17/17 03:01 3.0 08/16/17 20:00 Nasal Cannula Intake and Output 08/16/17 08/16/17 08/17/17 15:00 23:00 07:00 Intake Total 200 ml 240 ml Output Total 2100 ml 1000 ml Balance -1900 ml -760 ml Results/Medications Result Diagram: 08/16/17 0539 08/17/17 0606 Results 24 hrs Laboratory Tests Test 08/17/17 06:06 Sodium Level 144 Potassium Level 4.1 Chloride Level 105 Carbon Dioxide Level 31 Anion Gap 12 Blood Urea Nitrogen 19 Creatinine 0.95 Glucose Level 91 Calcium Level 9.0 Medications Current Medications Morphine Sulfate (morphine) 2 mg Q4H PRN IV back pain Last administered on 09:42; Admin Dose 2 MG; Start 07/24/17 at 17:30 Ondansetron HCl (Zofran Inj) 4 mg Q6H PRN IV NAUSEA AND/OR VOMITING; Start at 19:00 Morphine Sulfate (morphine) 4 mg Q4H PRN IV PAIN LEVEL 7-10 Last administered on 08/10/17 08:37; Admin Dose 4 MG; Start 07/24/17 at 19:00 Miscellaneous Information 1 ea NOTE XX ; Start 07/25/17 at 10:30 Nystatin (Nystatin Powder) 1 applic BID TOP Last administered on 08/17/17 09: 00; Admin Dose 1 APPLIC; Start 07/25/17 at 13:00 IV Flush (NS 10 ml) 10 ml PRN PRN IV IV PROTOCOL; Start 07/25/17 at 17:30 Acetaminophen (Tylenol Liquid) 650 mg Q6H PRN NGT PAIN AND OR ELEVATED TEMP Last administered on 08/04/17 05:44; Admin Dose 650 MG; Start 07/27/17 at 20:30 Atropine Sulfate (Atropine (Syringe)) 0.5 mg PRN PRN IV DECREASED HEART RATE Last administered on 08/07/17 18:30; Admin Dose 0.5 MG; Start 08/01/17 at 10: 30 [facility] This patient kuhn... PRN PRN XX WOUND CARE; Start 08/07/17 at 19:30 Lactulose (Enulose) 30 gm Q4 PRN PO CONSTIPATIN Last administered on 17:02; Admin Dose 30 GM; Start 08/08/17 at 08:00 Pantoprazole (Protonix Tab) 40 mg DAILY@06 PO Last administered on 08/17/17 06:08; Admin Dose 40 MG; Start 08/09/17 at 06:00 Potassium Chloride (Potassium Chloride Pwd/Soln) 20 meq TID PO Last administered on 08/17/17 12:36; Admin Dose 20 MEQ; Start 08/12/17 at 10:00 Doxycycline Hyclate (Vibramycin) 100 mg BID PO Last administered on 08/17/17 09:42; Admin Dose 100 MG; Start 08/12/17 at 21:00 Amlodipine Besylate (Norvasc) 5 mg DAILY PO Last administered on 08/16/17 08: 35; Admin Dose 5 MG; Start 08/12/17 at 16:30 Hydralazine HCl (Apresoline) 10 mg Q6H PRN IV SBP greater than 160 Last administered on 08/14/17 16:30; Admin Dose 10 MG; Start 08/12/17 at 16:30 Tramadol HCl (Ultram) 50 mg BID PRN PO pain Last administered on 08/17/17 12: 29; Admin Dose 50 MG; Start 08/13/17 at 15:00 Acetaminophen (Tylenol Tab) 650 mg Q6H PRN PO PAIN AND OR ELEVATED TEMP; Start 08/13/17 at 15:00 Metoprolol Tartrate (Lopressor) 25 mg BID PO Last administered on 08/16/17 21 :05; Admin Dose 25 MG; Start 08/13/17 at 21:00 Furosemide (Lasix) 40 mg DAILY@06 IV Last administered on 08/17/17 06:08; Admin Dose 40 MG; Start 08/17/17 at 06:00 Lorazepam (Ativan) 0.5 mg Q8H PRN PO ANXIETY Last administered on 08/17/17t 09 :56; Admin Dose 0.5 MG; Start 08/17/17 at 09:30 Assessment/Plan Chief Complaint/Hosp Course SUBJECTIVE: No acute events overnight. Alert, feels good, no fevers ANTIMICROBIALS: Doxycycline INDWELLINGS: [place] catheter, PICC line. PHYSICAL EXAMINATION: GENERAL: Well-developed, obese, elderly woman who is in no distress. HEENT: Head atraumatic, normocephalic. Sclerae anicteric. Buccal mucosa dry. NECK: Supple. CHEST: Rise symmetrical. Breath sounds diminished to bases. HEART: S1, S2. ABDOMEN: Soft, bowel tones present. EXTREMITIES: Without cyanosis, LLE erythema. ASSESSMENT: 1. LLE cellulitis 2. Status post sepsis/Escherichia coli extended-spectrum beta-lactamase with bacteremia. 3. Sinus bradycardia. 4. Status post acute kidney failure, resolved. 5. Back pain/L1 fx==> ortho follows 6. Pulmonary edema PLAN: Remains stable, urine l ooks cloudy with sediment in tubing, will order to change Cart[place], continue Doxycycline/LLE elevation, cardiology/pulmonary rec-s [facility] staff Problems: ERICKA LEGER NP Aug 17, 2017 13:56
--- NOTE | 2017-08-17 17:38 | CONS ---
Date/Time of Note Date/Time of Note DATE: 08/17/17 TIME: 17:36 Consult Date/Type/Reason Admit Date/Time Jul 24, 2017 at 11:53 Initial Consult Date 07/25/17 Type of Consultation: Pulm Ordering Provider: PIPER SANTANA MD Subjective No events. Objective Vital Signs Date Time Temp Pulse Resp B/P Pulse Ox O2 Delivery O2 Flow Rate FiO2 08/17/17 17:17 3.0 32 08/17/17 16:06 93 08/17/17 15:37 98.6 20 108/58 96 08/17/17 08:35 Nasal Cannula Intake and Output 08/16/17 08/16/17 08/17/17 15:00 23:00 07:00 Intake Total 200 ml 240 ml Output Total 2100 ml 1000 ml Balance -1900 ml -760 ml Exam HEENT: Neck supple; no JVD; no LAD CVS: RRR, S1 and S2 CHEST: Clear ABD: Soft, NT, + BS EXT: No c/c; + edema Results/Medications Result Diagram: 08/16/17 0539 08/17/17 0606 Results 24 hrs Laboratory Tests Test 08/17/17 06:06 Sodium Level 144 Potassium Level 4.1 Chloride Level 105 Carbon Dioxide Level 31 Anion Gap 12 Blood Urea Nitrogen 19 Creatinine 0.95 Glucose Level 91 Calcium Level 9.0 Medications Current Medications Morphine Sulfate (morphine) 2 mg Q4H PRN IV back pain Last administered on 16:26; Admin Dose 2 MG; Start 07/24/17 at 17:30 Ondansetron HCl (Zofran Inj) 4 mg Q6H PRN IV NAUSEA AND/OR VOMITING; Start at 19:00 Morphine Sulfate (morphine) 4 mg Q4H PRN IV PAIN LEVEL 7-10 Last administered on 08/10/17 08:37; Admin Dose 4 MG; Start 07/24/17 at 19:00 Miscellaneous Information 1 ea NOTE XX ; Start 07/25/17 at 10:30 Nystatin (Nystatin Powder) 1 applic BID TOP Last administered on 08/17/17 09: 00; Admin Dose 1 APPLIC; Start 07/25/17 at 13:00 IV Flush (NS 10 ml) 10 ml PRN PRN IV IV PROTOCOL; Start 07/25/17 at 17:30 Acetaminophen (Tylenol Liquid) 650 mg Q6H PRN NGT PAIN AND OR ELEVATED TEMP Last administered on 08/04/17 05:44; Admin Dose 650 MG; Start 07/27/17 at 20:30 Atropine Sulfate (Atropine (Syringe)) 0.5 mg PRN PRN IV DECREASED HEART RATE Last administered on 08/07/17 18:30; Admin Dose 0.5 MG; Start 08/01/17 at 10: 30 [facility] This patient kuhn... PRN PRN XX WOUND CARE; Start 08/07/17 at 19:30 Lactulose (Enulose) 30 gm Q4 PRN PO CONSTIPATIN Last administered on 17:02; Admin Dose 30 GM; Start 08/08/17 at 08:00 Pantoprazole (Protonix Tab) 40 mg DAILY@06 PO Last administered on 08/17/17 06:08; Admin Dose 40 MG; Start 08/09/17 at 06:00 Potassium Chloride (Potassium Chloride Pwd/Soln) 20 meq TID PO Last administered on 08/17/17 12:36; Admin Dose 20 MEQ; Start 08/12/17 at 10:00 Doxycycline Hyclate (Vibramycin) 100 mg BID PO Last administered on 08/17/17 09:42; Admin Dose 100 MG; Start 08/12/17 at 21:00 Amlodipine Besylate (Norvasc) 5 mg DAILY PO Last administered on 08/16/17 08: 35; Admin Dose 5 MG; Start 08/12/17 at 16:30 Hydralazine HCl (Apresoline) 10 mg Q6H PRN IV SBP greater than 160 Last administered on 08/14/17 16:30; Admin Dose 10 MG; Start 08/12/17 at 16:30 Tramadol HCl (Ultram) 50 mg BID PRN PO pain Last administered on 08/17/17 12: 29; Admin Dose 50 MG; Start 08/13/17 at 15:00 Acetaminophen (Tylenol Tab) 650 mg Q6H PRN PO PAIN AND OR ELEVATED TEMP; Start 08/13/17 at 15:00 Metoprolol Tartrate (Lopressor) 25 mg BID PO Last administered on 08/16/17 21 :05; Admin Dose 25 MG; Start 08/13/17 at 21:00 Furosemide (Lasix) 40 mg DAILY@06 IV Last administered on 08/17/17 06:08; Admin Dose 40 MG; Start 08/17/17 at 06:00 Lorazepam (Ativan) 0.5 mg Q8H PRN PO ANXIETY Last administered on 08/17/17 09 :56; Admin Dose 0.5 MG; Start 08/17/17 at 09:30 Assessment/Plan Additional Assessment/Plan IMP: 1. s/p resp failure 2. pulm edema 3. persistent subtle interstitial changes RECS: 1. Aspiration precautions 2. OOB 3. Cont gentle diuresis NEEMA CABEZAS MD Aug 17, 2017 17:38
[2017-08-17] MEDS: ACETAMINOPHEN 650MG/20.3ML CUP NGT PRN (22:10)
[2017-08-18] VITALS (10 sets, daily range): BP systolic 108–134; BP diastolic 56–88; PULSE 66–86; RESP 17–19
[2017-08-18] MEDS: FUROSEMIDE 40 MG INJ IV SCH (06:28)
[2017-08-18] MEDS: PANTOPRAZOLE (EC) 40 MG TAB PO SCH (06:28)
[2017-08-18 07:59] LABS: BASOPHILS % 0.4 % (0.0-2.0); EOSINOPHILS # 0.5 10^3/ul (0.0-0.5); EOSINOPHILS % 4.7 % (0.0-7.0); HEMATOCRIT 31.4 % (37.0-47.0); HEMOGLOBIN 10.1 g/dl (12.0-16.0); LYMPHOCYTES # 1.5 10^3/ul (0.8-2.9); LYMPHOCYTES % 13.4 % (15.0-51.0); MEAN CORPUSCULAR HEMOGLOBIN 33.1 pg (29.0-33.0); MEAN CORPUSCULAR HGB CONC 32.2 g/dl (32.0-37.0); MEAN PLATELET VOLUME 10.6 fl (7.4-10.4); MONOCYTE # 0.9 10^3/ul (0.3-0.9); MONOCYTES % 8.5 % (0.0-11.0); NEUTROPHILS % 72.6 % (39.0-77.0); PLATELET COUNT 249 10^3/UL (140-415); RED BLOOD COUNT 3.05 10^6/ul (4.20-5.40); RED CELL DISTRIBUTION WIDTH 14.2 % (11.5-14.5)
[2017-08-18 08:18] LABS: CALCIUM 9.4 mg/dl (8.4-10.2); CREATININE 0.94 mg/dl (0.44-1.00); POTASSIUM 3.8 mmol/L (3.5-5.1)
[2017-08-18] MEDS: METOPROLOL 25 MG TAB PO SCH ×2 (08:37→20:23)
[2017-08-18] MEDS: NYSTATIN 30 GM POWDER BTL TOP SCH ×2 (08:38→21:44)
[2017-08-18] MEDS: DOXYCYCLINE 100 MG TAB PO SCH ×2 (08:38→21:44)
[2017-08-18] MEDS: POTASSIUM CHLORIDE 20 MEQ POWDER FOR ORAL SOLN PO SCH ×3 (08:38→20:22)
[2017-08-18] MEDS: AMLODIPINE 5 MG TAB PO SCH (08:38)
[2017-08-18] MEDS: BALSAM PERU/CASTOR OIL 60 GM TUBE TOP SCH ×2 (08:39→21:44)
--- NOTE | 2017-08-18 12:02 | PN ---
Date/Time of Note Date/Time of Note DATE: 08/18/17 TIME: 11:59 Assessment/Plan VTE Prophylaxis VTE Prophylaxis Intervention: SCD's Lines/Catheters [facility] P[facility] Line Central line still needed: Yes Urinary Cath still in place: No Assessment/Plan Problems: (1) UTI (urinary tract infection) Status: Acute Comment: Continue doxycycline Qualifiers: Urinary tract infection type: acute cystitis Hematuria presence: without hematuria Qualified Code: N30.00 - Acute cystitis without hematuria (2) Altered breathing pattern Status: Acute Comment: Improved breathing and normal breath sounds. Chest x-ray still shows interstitial infiltrate. However atelectasis improved. Continue physical therapy and incentive spirometry (3) Compression fracture of L1 lumbar vertebra Status: Acute Comment: To go to shelter facility on discharge for rehab Subjective 24 Hr Interval Summary Constitutional: improved, no complaints Respiratory: no complaints Cardiovascular: no complaints Gastrointestinal: no complaints Genitourinary: no complaints Musculoskeletal: back pain (Controlled at this time) Skin: pruritis (Decreased versus yesterday) Neurologic: no complaints Psychological: anxiety (Decreased versus yesterday) Exam/Review of Systems Vital Signs Vitals VS - Last 72 Hours, by Label Date Time Temp Pulse Resp B/P Pulse Ox O2 Delivery O2 Flow Rate FiO2 08/18/17 08:12 82 08/18/17 08:04 98.9 77 18 134/64 99 08/18/17 04:03 75 08/18/17 04:00 97.8 76 18 123/63 96 08/18/17 01:14 Nasal Cannula 2.0 08/18/17 00:25 66 08/18/17 00:00 97.6 72 18 111/60 96 08/17/17 20:59 3.0 08/17/17 20:10 Nasal Cannula 2.0 08/17/17 20:03 95 08/17/17 19:59 99.2 99 19 131/72 97 08/17/17 17:17 3.0 32 08/17/17 16:06 93 08/17/17 15:37 98.6 98 20 108/58 96 08/17/17 12:12 97 08/17/17 11:30 98.0 95 20 123/59 97 08/17/17 11:11 3.0 32 08/17/17 08:35 Nasal Cannula 2.0 08/17/17 08:08 84 08/17/17 07:41 98.3 84 18 100/51 98 08/17/17 07:15 3.0 32 08/17/17 04:04 98.7 79 17 110/48 97 08/17/17 04:00 78 08/17/17 03:01 3.0 08/17/17 00:26 74 08/16/17 23:40 98.0 95 18 114/66 96 08/16/17 20:54 3.0 08/16/17 20:11 88 08/16/17 20:00 Nasal Cannula 2.0 08/16/17 20:00 98.1 96 18 117/60 95 08/16/17 16:02 81 08/16/17 15:21 97.9 68 20 116/64 98 08/16/17 12:12 77 08/16/17 11:02 98.5 74 19 111/56 97 08/16/17 10:39 3.0 08/16/17 08:15 Nasal Cannula 2.0 08/16/17 08:10 84 08/16/17 07:25 98.5 81 20 125/66 98 08/16/17 04:20 84 08/16/17 03:54 98.0 88 18 116/68 99 08/16/17 01:37 3.0 08/16/17 00:48 98.8 80 18 125/60 99 08/16/17 00:30 81 08/15/17 21:40 3.0 08/15/17 20:00 96 08/15/17 20:00 98.3 98 18 139/60 95 08/15/17 20:00 Nasal Cannula 2.0 08/15/17 18:37 3.0 08/15/17 16:14 86 08/15/17 15:46 98.6 86 20 103/59 96 08/15/17 12:24 85 Vital Signs Date Time Temp Pulse Resp B/P Pulse Ox O2 Delivery O2 Flow Rate FiO2 08/18/17 08:12 82 08/18/17 08:04 98.9 18 134/64 99 08/18/17 01:14 Nasal Cannula 2.0 08/17/17 17:17 32 Intake and Output 08/17/17 08/17/17 08/18/17 15:00 23:00 07:00 Intake Total 550 ml Output Total 1500 ml Balance -950 ml Exam Constitutional: alert, obese Psych: nl mood/affect, no complaints Respiratory: clear to auscultation, normal air movement Cardiovascular: nl pulses, regular rate and rhythm, No edema, No murmurs/extra sounds, No rub Gastrointestinal: bowel sounds, nl liver, spleen, non-tender, soft, No mass, No rebound or guarding Musculoskeletal: nl extremities to inspection Extremities: normal pulses, No clubbing, No cyanosis, No edema Neurological: AD[employer] II-XII intact, nl mental status, nl speech, nl strength Results Result Diagram: 08/18/1772208/18/17722 Results 24 hrs Laboratory Tests Test 08/18/17 07:23 White Blood Count 11.0 H Red Blood Count 3.05 L Hemoglobin 10.1 L Hematocrit 31.4 L Mean Corpuscular Volume 103.0 H Mean Corpuscular Hemoglobin 33.1 H Mean Corpuscular Hemoglobin Concent 32.2 Red Cell Distribution Width 14.2 Platelet Count 249 Mean Platelet Volume 10.6 H Neutrophils % 72.6 Lymphocytes % 13.4 L Monocytes % 8.5 Eosinophils % 4.7 Basophils % 0.4 Nucleated Red Blood Cells % 0.0 Neutrophils # 8.0 H Lymphocytes # 1.5 Monocytes # 0.9 Eosinophils # 0.5 Basophils # 0.0 Nucleated Red Blood Cells # 0.0 Sodium Level 143 Potassium Level 3.8 Chloride Level 102 Carbon Dioxide Level 32 H Anion Gap 13 Blood Urea Nitrogen 18 Creatinine 0.94 Glucose Level 96 Calcium Level 9.4 Medications Medications Current Medications Morphine Sulfate (morphine) 2 mg Q4H PRN IV back pain Last administered on 16:26; Admin Dose 2 MG; Start 07/24/17 at 17:30 Ondansetron HCl (Zofran Inj) 4 mg Q6H PRN IV NAUSEA AND/OR VOMITING; Start at 19:00 Morphine Sulfate (morphine) 4 mg Q4H PRN IV PAIN LEVEL 7-10 Last administered on 08/10/17 08:37; Admin Dose 4 MG; Start 07/24/17 at 19:00 Miscellaneous Information 1 ea NOTE XX ; Start 07/25/17 at 10:30 Nystatin (Nystatin Powder) 1 applic BID TOP Last administered on 08/18/17 08: 38; Admin Dose 1 APPLIC; Start 07/25/17 at 13:00 IV Flush (NS 10 ml) 10 ml PRN PRN IV IV PROTOCOL; Start 07/25/17 at 17:30 Acetaminophen (Tylenol Liquid) 650 mg Q6H PRN NGT PAIN AND OR ELEVATED TEMP Last administered on 08/17/17 22:10; Admin Dose 650 MG; Start 07/27/17 at 20: 30 Atropine Sulfate (Atropine (Syringe)) 0.5 mg PRN PRN IV DECREASED HEART RATE Last administered on 08/07/17 18:30; Admin Dose 0.5 MG; Start 08/01/17 at 10: 30 Miscellaneous [facility] This patient kuhn... PRN PRN XX WOUND CARE; Start 08/07/17 at 19:30 Lactulose (Enulose) 30 gm Q4 PRN PO CONSTIPATIN Last administered on 17:02; Admin Dose 30 GM; Start 08/08/17 at 08:00 Pantoprazole (Protonix Tab) 40 mg DAILY@06 PO Last administered on 08/18/17 06:28; Admin Dose 40 MG; Start 08/09/17 at 06:00 Potassium Chloride (Potassium Chloride Pwd/Soln) 20 meq TID PO Last administered on 08/18/17 08:38; Admin Dose 20 MEQ; Start 08/12/17 at 10:00 Doxycycline Hyclate (Vibramycin) 100 mg BID PO Last administered on 08/18/17 08:38; Admin Dose 100 MG; Start 08/12/17 at 21:00 Amlodipine Besylate (Norvasc) 5 mg DAILY PO Last administered on 08/18/17 08: 38; Admin Dose 5 MG; Start 08/12/17 at 16:30 Hydralazine HCl (Apresoline) 10 mg Q6H PRN IV SBP greater than 160 Last administered on 08/14/17 16:30; Admin Dose 10 MG; Start 08/12/17 at 16:30 Tramadol HCl (Ultram) 50 mg BID PRN PO pain Last administered on 08/17/17 12: 29; Admin Dose 50 MG; Start 08/13/17 at 15:00 Acetaminophen (Tylenol Tab) 650 mg Q6H PRN PO PAIN AND OR ELEVATED TEMP; Start 08/13/17 at 15:00 Metoprolol Tartrate (Lopressor) 25 mg BID PO Last administered on 08/18/17 08 :37; Admin Dose 25 MG; Start 08/13/17 at 21:00 Furosemide (Lasix) 40 mg DAILY@06 IV Last administered on 08/18/17 06:28; Admin Dose 40 MG; Start 08/17/17 at 06:00 Lorazepam (Ativan) 0.5 mg Q8H PRN PO ANXIETY Last administered on 08/17/17 09 :56; Admin Dose 0.5 MG; Start 08/17/17 at 09:30 SHAVON SALAMANCA MD Aug 18, 2017 12:02
--- NOTE | 2017-08-18 16:31 | CONS ---
Date/Time of Note Date/Time of Note DATE: 08/18/17 TIME: 16:30 Consult Date/Type/Reason Admit Date/Time Jul 24, 2017 at 11:53 Initial Consult Date 07/25/17 Type of Consultation: Pulm Ordering Provider: PIPER SANTANA MD Subjective No events. w/o c/o. Objective Vital Signs Date Time Temp Pulse Resp B/P Pulse Ox O2 Delivery O2 Flow Rate FiO2 08/18/17 12:10 79 08/18/17 12:04 98.3 17 121/59 96 08/18/17 08:00 Nasal Cannula 2.0 08/17/17 17:17 32 Intake and Output 08/17/17 08/17/17 08/18/17 15:00 23:00 07:00 Intake Total 550 ml Output Total 1500 ml Balance -950 ml Exam HEENT: Neck supple; no JVD; no LAD CVS: RRR, S1 and S2 CHEST: Clear ABD: Soft, NT, + BS EXT: No c/c; + edema Results/Medications Result Diagram: 08/18/1772208/18/17722 Results 24 hrs Laboratory Tests Test 08/18/17 07:23 White Blood Count 11.0 H Red Blood Count 3.05 L Hemoglobin 10.1 L Hematocrit 31.4 L Mean Corpuscular Volume 103.0 H Mean Corpuscular Hemoglobin 33.1 H Mean Corpuscular Hemoglobin Concent 32.2 Red Cell Distribution Width 14.2 Platelet Count 249 Mean Platelet Volume 10.6 H Neutrophils % 72.6 Lymphocytes % 13.4 L Monocytes % 8.5 Eosinophils % 4.7 Basophils % 0.4 Nucleated Red Blood Cells % 0.0 Neutrophils # 8.0 H Lymphocytes # 1.5 Monocytes # 0.9 Eosinophils # 0.5 Basophils # 0.0 Nucleated Red Blood Cells # 0.0 Sodium Level 143 Potassium Level 3.8 Chloride Level 102 Carbon Dioxide Level 32 H Anion Gap 13 Blood Urea Nitrogen 18 Creatinine 0.94 Glucose Level 96 Calcium Level 9.4 Medications Current Medications Morphine Sulfate (morphine) 2 mg Q4H PRN IV back pain Last administered on t 16:26; Admin Dose 2 MG; Start 07/24/17 at 17:30 Ondansetron HCl (Zofran Inj) 4 mg Q6H PRN IV NAUSEA AND/OR VOMITING; Start at 19:00 Morphine Sulfate (morphine) 4 mg Q4H PRN IV PAIN LEVEL 7-10 Last administered on 08/10/17 08:37; Admin Dose 4 MG; Start 07/24/17 at 19:00 Miscellaneous Information 1 ea NOTE XX ; Start 07/25/17 at 10:30 Nystatin (Nystatin Powder) 1 applic BID TOP Last administered on 08/18/17 08: 38; Admin Dose 1 APPLIC; Start 07/25/17 at 13:00 IV Flush (NS 10 ml) 10 ml PRN PRN IV IV PROTOCOL; Start 07/25/17 at 17:30 Acetaminophen (Tylenol Liquid) 650 mg Q6H PRN NGT PAIN AND OR ELEVATED TEMP Last administered on 08/17/17 22:10; Admin Dose 650 MG; Start 07/27/17 at 20: 30 Atropine Sulfate (Atropine (Syringe)) 0.5 mg PRN PRN IV DECREASED HEART RATE Last administered on 08/07/17 18:30; Admin Dose 0.5 MG; Start 08/01/17 at 10: 30 Miscellaneous [facility] This patient kuhn... PRN PRN XX WOUND CARE; Start 08/07/17 at 19:30 Lactulose (Enulose) 30 gm Q4 PRN PO CONSTIPATIN Last administered on 17:02; Admin Dose 30 GM; Start 08/08/17 at 08:00 Pantoprazole (Protonix Tab) 40 mg DAILY@06 PO Last administered on 08/18/17 06:28; Admin Dose 40 MG; Start 08/09/17 at 06:00 Potassium Chloride (Potassium Chloride Pwd/Soln) 20 meq TID PO Last administered on 08/18/17 13:27; Admin Dose 20 MEQ; Start 08/12/17 at 10:00 Doxycycline Hyclate (Vibramycin) 100 mg BID PO Last administered on 08/18/17 08:38; Admin Dose 100 MG; Start 08/12/17 at 21:00 Amlodipine Besylate (Norvasc) 5 mg DAILY PO Last administered on 08/18/17 08: 38; Admin Dose 5 MG; Start 08/12/17 at 16:30 Hydralazine HCl (Apresoline) 10 mg Q6H PRN IV SBP greater than 160 Last administered on 08/14/17 16:30; Admin Dose 10 MG; Start 08/12/17 at 16:30 Tramadol HCl (Ultram) 50 mg BID PRN PO pain Last administered on 08/17/17 12: 29; Admin Dose 50 MG; Start 08/13/17 at 15:00 Acetaminophen (Tylenol Tab) 650 mg Q6H PRN PO PAIN AND OR ELEVATED TEMP; Start 08/13/17 at 15:00 Metoprolol Tartrate (Lopressor) 25 mg BID PO Last administered on 08/18/17 08 :37; Admin Dose 25 MG; Start 08/13/17 at 21:00 Furosemide (Lasix) 40 mg DAILY@06 IV Last administered on 08/18/17 06:28; Admin Dose 40 MG; Start 08/17/17 at 06:00 Lorazepam (Ativan) 0.5 mg Q8H PRN PO ANXIETY Last administered on 08/17/17 09 :56; Admin Dose 0.5 MG; Start 08/17/17 at 09:30 Assessment/Plan Additional Assessment/Plan IMP: 1. s/p resp failure 2. pulm edema 3. persistent subtle interstitial changes RECS: 1. Aspiration precautions 2. OOB/PT/OT 3. Cont gentle diuresis NEEMA CABEZAS MD Aug 18, 2017 16:31
--- NOTE | 2017-08-18 20:06 | CONS ---
Date/Time of Note Date/Time of Note DATE: 08/18/17 TIME: 20:06 Consult Date/Type/Reason Admit Date/Time Jul 24, 2017 at 11:53 Initial Consult Date 07/25/17 Type of Consultation: ID Ordering Provider: PIPER SANTANA MD Objective Vital Signs Date Time Temp Pulse Resp B/P Pulse Ox O2 Delivery O2 Flow Rate FiO2 08/18/17 18:28 97.5 86 17 109/88 91 Room Air 08/18/17 17:00 3.0 32 Intake and Output 08/17/17 08/17/17 08/18/17 15:00 23:00 07:00 Intake Total 550 ml Output Total 1500 ml Balance -950 ml Results/Medications Result Diagram: 08/18/1772208/18/17722 Results 24 hrs Laboratory Tests Test 08/18/17 07:23 White Blood Count 11.0 H Red Blood Count 3.05 L Hemoglobin 10.1 L Hematocrit 31.4 L Mean Corpuscular Volume 103.0 H Mean Corpuscular Hemoglobin 33.1 H Mean Corpuscular Hemoglobin Concent 32.2 Red Cell Distribution Width 14.2 Platelet Count 249 Mean Platelet Volume 10.6 H Neutrophils % 72.6 Lymphocytes % 13.4 L Monocytes % 8.5 Eosinophils % 4.7 Basophils % 0.4 Nucleated Red Blood Cells % 0.0 Neutrophils # 8.0 H Lymphocytes # 1.5 Monocytes # 0.9 Eosinophils # 0.5 Basophils # 0.0 Nucleated Red Blood Cells # 0.0 Sodium Level 143 Potassium Level 3.8 Chloride Level 102 Carbon Dioxide Level 32 H Anion Gap 13 Blood Urea Nitrogen 18 Creatinine 0.94 Glucose Level 96 Calcium Level 9.4 Medications Current Medications Morphine Sulfate (morphine) 2 mg Q4H PRN IV back pain Last administered on 16:26; Admin Dose 2 MG; Start 07/24/17 at 17:30 Ondansetron HCl (Zofran Inj) 4 mg Q6H PRN IV NAUSEA AND/OR VOMITING; Start at 19:00 Morphine Sulfate (morphine) 4 mg Q4H PRN IV PAIN LEVEL 7-10 Last administered on 08/10/17 08:37; Admin Dose 4 MG; Start 07/24/17 at 19:00 Miscellaneous Information 1 ea NOTE XX ; Start 07/25/17 at 10:30 Nystatin (Nystatin Powder) 1 applic BID TOP Last administered on 08/18/17 08: 38; Admin Dose 1 APPLIC; Start 07/25/17 at 13:00 IV Flush (NS 10 ml) 10 ml PRN PRN IV IV PROTOCOL; Start 07/25/17 at 17:30 Acetaminophen (Tylenol Liquid) 650 mg Q6H PRN NGT PAIN AND OR ELEVATED TEMP Last administered on 08/17/17 22:10; Admin Dose 650 MG; Start 07/27/17 at 20: 30 Atropine Sulfate (Atropine (Syringe)) 0.5 mg PRN PRN IV DECREASED HEART RATE Last administered on 08/07/17 18:30; Admin Dose 0.5 MG; Start 08/01/17 at 10: 30 [facility]isc[facility] This patient kuhn... PRN PRN XX WOUND CARE; Start 08/07/17 at 19:30 Lactulose (Enulose) 30 gm Q4 PRN PO CONSTIPATIN Last administered on 17:02; Admin Dose 30 GM; Start 08/08/17 at 08:00 Pantoprazole (Protonix Tab) 40 mg DAILY@06 PO Last administered on 08/18/17 06:28; Admin Dose 40 MG; Start 08/09/17 at 06:00 Potassium Chloride (Potassium Chloride Pwd/Soln) 20 meq TID PO Last administered on 08/18/17 13:27; Admin Dose 20 MEQ; Start 08/12/17 at 10:00 Doxycycline Hyclate (Vibramycin) 100 mg BID PO Last administered on 08/18/17 08:38; Admin Dose 100 MG; Start 08/12/17 at 21:00 Amlodipine Besylate (Norvasc) 5 mg DAILY PO Last administered on 08/18/17 08: 38; Admin Dose 5 MG; Start 08/12/17 at 16:30 Hydralazine HCl (Apresoline) 10 mg Q6H PRN IV SBP greater than 160 Last administered on 08/14/17 16:30; Admin Dose 10 MG; Start 08/12/17 at 16:30 Tramadol HCl (Ultram) 50 mg BID PRN PO pain Last administered on 08/17/17 12: 29; Admin Dose 50 MG; Start 08/13/17 at 15:00 Acetaminophen (Tylenol Tab) 650 mg Q6H PRN PO PAIN AND OR ELEVATED TEMP; Start 08/13/17 at 15:00 Metoprolol Tartrate (Lopressor) 25 mg BID PO Last administered on 08/18/17 08 :37; Admin Dose 25 MG; Start 08/13/17 at 21:00 Furosemide (Lasix) 40 mg DAILY@06 IV Last administered on 08/18/17 06:28; Admin Dose 40 MG; Start 08/17/17 at 06:00 Lorazepam (Ativan) 0.5 mg Q8H PRN PO ANXIETY Last administered on 08/17/17 09 :56; Admin Dose 0.5 MG; Start 08/17/17 at 09:30 Assessment/Plan Chief Complaint/Hosp Course SUBJECTIVE: No acute events overnight.Looks comfortable, no fevers ANTIMICROBIALS: Doxycycline INDWELLINGS: [place] catheter, PICC line. PHYSICAL EXAMINATION: GENERAL: Well-developed, obese, elderly woman who is in no distress. HEENT: Head atraumatic, normocephalic. Sclerae anicteric. Buccal mucosa dry. NECK: Supple. CHEST: Rise symmetrical. Breath sounds diminished to bases. HEART: S1, S2. ABDOMEN: Soft, bowel tones present. EXTREMITIES: Without cyanosis, LLE erythema. ASSESSMENT: 1. LLE cellulitis 2. Status post sepsis/Escherichia coli extended-spectrum beta-lactamase with bacteremia. 3. Sinus bradycardia. 4. Status post acute kidney failure, resolved. 5. Back pain/L1 fx==> ortho follows 6. Pulmonary edema PLAN: Remains stable, continue Doxycycline/LLE elevation, cardiology/pulmonary rec-s [facility] staff Problems: ERICKA LEGER NP Aug 18, 2017 20:06
[2017-08-19 02:00] VITALS: BP 116/62; RESP 19
[2017-08-19] MEDS: FUROSEMIDE 40 MG INJ IV SCH (05:39)
[2017-08-19] MEDS: PANTOPRAZOLE (EC) 40 MG TAB PO SCH (05:40)
[2017-08-19 07:38] VITALS: BP 108/57; RESP 18
--- NOTE | 2017-08-19 08:55 | PN ---
Date/Time of Note Date/Time of Note DATE: 08/19/17 TIME: 08:52 Assessment/Plan VTE Prophylaxis VTE Prophylaxis Intervention: SCD's Lines/Catheters IV Catheter Type (from Nrsg): Saline Lock Urinary Cath still in place: No Subjective 24 Hr Interval Summary Free Text/Dictation seems much improved this am resting quietly, able to self feed, no resp comp[laints all labs stable, some persistent xray changes noted, cont diuresis and pulm care for dc to [facility] ...[facility]...when bed available, pt and aware Respiratory: no complaints Musculoskeletal: back pain Exam/Review of Systems Vital Signs Vitals Vital Signs Date Time Temp Pulse Resp B/P Pulse Ox O2 Delivery O2 Flow Rate FiO2 08/19/17 07:38 98.1 97 18 108/57 98 08/18/17 18:28 Room Air 08/18/17 17:00 3.0 32 Intake and Output 08/18/17 08/18/17 08/19/17 15:00 23:00 07:00 Intake Total 200 ml 480 ml Output Total 550 ml Balance -350 ml 480 ml Results Result Diagram: 08/18/1772208/18/17722 Medications Medications Current Medications Morphine Sulfate (morphine) 2 mg Q4H PRN IV back pain Last administered on 16:26; Admin Dose 2 MG; Start 07/24/17 at 17:30 Ondansetron HCl (Zofran Inj) 4 mg Q6H PRN IV NAUSEA AND/OR VOMITING; Start at 19:00 Morphine Sulfate (morphine) 4 mg Q4H PRN IV PAIN LEVEL 7-10 Last administered on 08/10/17 08:37; Admin Dose 4 MG; Start 07/24/17 at 19:00 Miscellaneous Information 1 ea NOTE XX ; Start 07/25/17 at 10:30 Nystatin (Nystatin Powder) 1 applic BID TOP Last administered on 08/18/17 21: 44; Admin Dose 1 APPLIC; Start 07/25/17 at 13:00 IV Flush (NS 10 ml) 10 ml PRN PRN IV IV PROTOCOL; Start 07/25/17 at 17:30 Acetaminophen (Tylenol Liquid) 650 mg Q6H PRN NGT PAIN AND OR ELEVATED TEMP Last administered on 08/17/17 22:10; Admin Dose 650 MG; Start 07/27/17 at 20: 30 Atropine Sulfate (Atropine (Syringe)) 0.5 mg PRN PRN IV DECREASED HEART RATE Last administered on 08/07/17 18:30; Admin Dose 0.5 MG; Start 08/01/17 at 10: 30 Miscellaneous Information (Pending Santyl Order For Wound Care) This patient kuhn... PRN PRN XX WOUND CARE; Start 08/07/17 at 19:30 Lactulose (Enulose) 30 gm Q4 PRN PO CONSTIPATIN Last administered on 17:02; Admin Dose 30 GM; Start 08/08/17 at 08:00 Pantoprazole (Protonix Tab) 40 mg DAILY@06 PO Last administered on 08/19/17 05:40; Admin Dose 40 MG; Start 08/09/17 at 06:00 Potassium Chloride (Potassium Chloride Pwd/Soln) 20 meq TID PO Last administered on 08/18/17 20:22; Admin Dose 20 MEQ; Start 08/12/17 at 10:00 Doxycycline Hyclate (Vibramycin) 100 mg BID PO Last administered on 08/18/17 21:44; Admin Dose 100 MG; Start 08/12/17 at 21:00 Amlodipine Besylate (Norvasc) 5 mg DAILY PO Last administered on 08/18/17 08: 38; Admin Dose 5 MG; Start 08/12/17 at 16:30 Hydralazine HCl (Apresoline) 10 mg Q6H PRN IV SBP greater than 160 Last administered on 08/14/17 16:30; Admin Dose 10 MG; Start 08/12/17 at 16:30 Tramadol HCl (Ultram) 50 mg BID PRN PO pain Last administered on 08/17/17 12: 29; Admin Dose 50 MG; Start 08/13/17 at 15:00 Acetaminophen (Tylenol Tab) 650 mg Q6H PRN PO PAIN AND OR ELEVATED TEMP; Start 08/13/17 at 15:00 Metoprolol Tartrate (Lopressor) 25 mg BID PO Last administered on 08/18/17 08 :37; Admin Dose 25 MG; Start 08/13/17 at 21:00 Furosemide (Lasix) 40 mg DAILY@06 IV Last administered on 08/19/17 05:39; Admin Dose 40 MG; Start 08/17/17 at 06:00 Lorazepam (Ativan) 0.5 mg Q8H PRN PO ANXIETY Last administered on 08/17/17 09 :56; Admin Dose 0.5 MG; Start 08/17/17 at 09:30 PIPER SANTANA MD Aug 19, 2017 08:55
[2017-08-19] MEDS: AMLODIPINE 5 MG TAB PO SCH ×2 (09:00→09:19)
[2017-08-19] MEDS: METOPROLOL 25 MG TAB PO SCH (09:00)
[2017-08-19] MEDS: traMADol 50 MG TAB PO PRN (09:16)
[2017-08-19] MEDS: DOXYCYCLINE 100 MG TAB PO SCH (09:19)
[2017-08-19] MEDS: POTASSIUM CHLORIDE 20 MEQ POWDER FOR ORAL SOLN PO SCH ×2 (09:20→12:33)
[2017-08-19] MEDS: BALSAM PERU/CASTOR OIL 60 GM TUBE TOP SCH (09:22)
[2017-08-19] MEDS: NYSTATIN 30 GM POWDER BTL TOP SCH (09:22)
[2017-08-19 14:00] VITALS: BP 110/60; RESP 20
--- NOTE | 2017-08-19 17:09 | CONS ---
Date/Time of Note Date/Time of Note DATE: 08/19/17 TIME: 17:02 Consultation Date/Type/Reason Admit Date/Time Jul 24, 2017 at 11:53 Initial Consult Date SUBJECTIVE: No acute events overnight. Looks comfortable. Feeling good. Denies fevers. No acute events over night. VS: 110/60 P: 90 R: 20 T: 98.0 SO2: 98% LABS: reviewed. WBC as of 08/18 -11.0. Repeat UA culture is NEG. Sputum Culture: 07/28/17 GRAM STAIN Final POLYMORPH. LEUKOCYTE 3+ GRAM POSITIVE RODS RARE RESPIRATORY CULTURE Final Organism 1 CORYNEBACTERIUM SPECIES QUANTITY 1+ Clinical susceptibiltiy testing standard for this organism have not been established. However, this organism has demonstrated in vitro growth inhibition to the following chemotherapeutic agents listed as susceptible. CORYN SPS Zone Size RX --------- --- * AMPICILLIN S * CEFAZOLIN S * CEFOTAXIME S * CEFUROXIME S * CIPROFLOXACIN R * CLINDAMYCIN R * ERYTHROMYCIN S * PENICILLIN S * VANCOMYCIN S ANTIMICROBIALS: Doxycycline PO INDWELLINGS: [place] catheter, PICC line. PHYSICAL EXAMINATION: GENERAL: Well-developed, obese, elderly woman who is in no distress. HEENT: Head atraumatic, normocephalic. Sclerae anicteric. Buccal mucosa dry. NECK: Supple. CHEST: Rise symmetrical. Breath sounds diminished to bases. HEART: S1, S2. ABDOMEN: Soft, bowel tones present. EXTREMITIES: Without cyanosis, LLE erythema. ASSESSMENT: 1. LLE cellulitis 2. Status post sepsis/Escherichia coli extended-spectrum beta-lactamase with bacteremia. 3. Sinus bradycardia. 4. Status post acute kidney failure, resolved. 5. Back pain/L1 fx==> ortho follows 6. Pulmonary edema PLAN: Remains stable. Continue DoxycyclinePO BID x5 more days. LLE elevation, cardiology/pulmonary rec-s. Pt will be D/C today per primary. Type of Consultation: ID Referring Provider: PIPER SANTANA MD Exam/Review of Systems Vital Signs Vitals Vital Signs Date Time Temp Pulse Resp B/P Pulse Ox O2 Delivery O2 Flow Rate FiO2 08/19/17 14:00 98.0 90 20 110/60 98 08/18/17 18:28 Room Air 08/18/17 17:00 3.0 32 Intake and Output 08/18/17 08/18/17 08/19/17 15:00 23:00 07:00 Intake Total 200 ml 480 ml Output Total 550 ml Balance -350 ml 480 ml Results Result Diagram: 08/18/17 0723 08/18/17 0723 JARAD MARTE Aug 19, 2017 17:09
--- NOTE | 2017-08-20 07:37 | DS ---
DATE OF ADMISSION: 07/24/2017 DATE OF DISCHARGE: 08/19/2017 CHIEF COMPLAINT: Back pain dating back several days when she fell getting out of bed developing acu te back pain. She was unable to move for the last day before or two before admission. She ultimate ly came to the emergency room. She was found to have acute renal failure with a creatinine of 3 fro m generally normal baseline. She had a left shift white count and a very low platelet count, which was also new. Tox screen was negative except for [place] that she may have taken at home. Serum sodi um 128. Her urine was grossly infected, and she had an exudative vaginitis which may have been yeas t, and there is a very low volume of urine from catheterization in the emergency room. There was so me headache which is also difficult to describe. She was placed empirically on antibiotics. Cathet er was placed. Renal consultation was placed as well. The patient was given a low dose of morphine and sometime after that was found to be somewhat unresponsive. There was no response to opiate ant agonist. There was no small pupils or other signs of opiate intoxication. The patient was nonfocal and unresponsive. She was placed in the intensive care unit where she spent the bulk of the follow ing hospitalization time seen by multiple physicians, was ultimately intubated, required 3 pressors at one time to maintain blood pressure. She had intermittent bradycardia. Slowly, she was tapered off the pressors. Ultimately she was able to be weaned from the respirator. She appeared to be non focal on waking up and still only complaining of back pain. All other evaluations improved. Her re nal function has returned to baseline. She was quite edematous and has responded to gentle diuresis . Cardiac status has maintained stable and heart rate is normal. Pulmonary status: She does have some persistent nonspecific infiltrates but is breathing well and has no cough or sense of shortness of breath. Initial CT did reveal probable fracture of L1, which is our working diagnosis. The pat ient has not wanted to do further workup because of the pain. Has not agreed to an MRI or further t reatment. At this point, she will require long-term rehab in a SNF and has been accepted by [facility] for [facility]. DIAGNOSES: 1. At time of discharge, her main problem is persistent low back pain, presumably secondary to vert ebral fracture. 2. Renal failure, resolved. 3. Urinary sepsis, resolved. 4. Respiratory failure, resolved. 5. Thrombocytopenia, resolved. At time of discharge, the patient is stable, alert, oriented and fluent, with a good prognosis for l vannesa-term rehab. The patient and family are aware of transfer. Dictated By: PIPER SANTANA MD, SR/ABBY Conf#: [id number] DID#: [id number]
--- NOTE | 2017-08-22 11:33 | ERD ---
DATE: ADDENDUM Please note that on the initial dictation, I indicated that the patient was a 71-year-old male. Please note that this is not correct. The patient is a 71-year-old female. This was an accidental discrepancy when doing the electronic medical records. Please again note that the patient is a 71-year-old female and not a 71-year-old male. Dictated By: Jenni Mon MD /[email or web address]/hill /Document#: [id number]
== END 2017-08-19 13:50 | DRG 870 ==
LOC: E/R 09:08 → MS4 11:53 → ICU 19:52 → TEL 08-07 16:12 → PP2 08-18 14:39
PROVIDERS: ADMIT Internal Medicine; ATTEND Internal Medicine
PROC: 06HM33Z Insertion of Infusion Device into Right Femoral Vein, Percutaneous Approach (ICD-10-PCS; 2017-07-24)
PROC: 5A1955Z Respiratory Ventilation, Greater than 96 Consecutive Hours (ICD-10-PCS; principal; 2017-07-25)
PROC: 0BH17EZ Insertion of Endotracheal Airway into Trachea, Via Natural or Artificial Opening (ICD-10-PCS; 2017-07-25)
PROC: 30233R1 Transfusion of Nonautologous Platelets into Peripheral Vein, Percutaneous Approach (ICD-10-PCS; 2017-07-25)
PROC: 02HV33Z Insertion of Infusion Device into Superior Vena Cava, Percutaneous Approach (ICD-10-PCS; 2017-07-25)
DX: A41.51 Sepsis due to Escherichia coli [E. coli] (principal); N17.0 Acute kidney failure with tubular necrosis; J96.91 Respiratory failure, unspecified with hypoxia; J96.92 Respiratory failure, unspecified with hypercapnia; G92 Toxic encephalopathy; R65.21 Severe sepsis with septic shock; E87.2 Acidosis; S32.019A Unspecified fracture of first lumbar vertebra, initial encounter for closed fracture; B37.49 Other urogenital candidiasis; E87.1 Hypo-osmolality and hyponatremia; N30.00 Acute cystitis without hematuria; N17.9 Acute kidney failure, unspecified; L03.116 Cellulitis of left lower limb; D69.6 Thrombocytopenia, unspecified; M54.9 Dorsalgia, unspecified; F10.20 Alcohol dependence, uncomplicated; E86.0 Dehydration; M54.5 Low back pain; R51 Headache; E66.3 Overweight; Z68.38 Body mass index [BMI] 38.0-38.9, adult; F10.10 Alcohol abuse, uncomplicated; E88.09 Other disorders of plasma-protein metabolism, not elsewhere classified; Z87.891 Personal history of nicotine dependence; R33.9 Retention of urine, unspecified; W06.XXXA Fall from bed, initial encounter; Y92.003 Bedroom of unspecified non-institutional (private) residence as the place of occurrence of the external cause
CPT/HCPCS: 31500; 36430; 36569; 36600; 70450; 71010; 72020; 74176; 76705; 76937; 78226; 80048; 80053; 80202; 80306; 80307; 81001; 82436; 82803; 82962; 83036; 83605; 83735; 84100; 84132; 84133; 84155; 84300; 84436; 84439; 84443; 84479; 84484; 85025; 85610; 85651; 85730; 86850; 86900; 86901; 86945; 87040; 87070; 87081; 87086; 89220; 92526; 92610; 93005; 93306; 94002; 94003; 94660; 94667; 94668; 94770; 95819; 96374; 96375; 97110; 97162; 97530; J1940; A9537; C1769; C9113; J0171; J0278; J0360; J0461; J0692; J0696; J1265; J1720; J1815; J1885; J1956; J2185; J2270; J2405; J2765; J3010; J3370; J3411; J3475; J3480; J7030; J7040; J7042; J7050; J7060; J7070; P9035; P9047